=== PATIENT | female | born 1965 | race Caucasian/White ===

== ENCOUNTER 2019-12-01 15:51 | Emergency (ER) | payer OTHER, SELFPAY ==
[2019-12-01 16:02] VITALS: BP 175/96; PULSE 76; RESP 18; TEMP 36.8; O2SAT 96
--- NOTE | 2019-12-01 16:22 | DI.RAD_ITS ---
EXAM: XR FINGER RT LITTLE CLINICAL HISTORY: finger tip vs glass TECHNIQUE: COMPARISON: No exams were available for comparison FINDINGS: Three views were obtained. There is soft tissue defect tip of the little finger. There are degenera tive changes at the DIP joint. No gross fracture or foreign body seen. IMPRESSION:
--- NOTE | 2019-12-01 16:39 | ED.GENADUL_ITS ---
Discharge Plan Disposition Patient Disposition: HOME Condition: Stable Discharge Details Chief Complaint: Laceration Clinical Impression: Finger laceration Primary Care Provider: None,None ED Provider: Bon Momin Discharge Instructions Instructions: Finger Laceration (ED) Additional Instructions: Keep the area clean and dry. Change antibiotic dressing daily. Over the counter medications for symptomatic control. Sutures should be removed in 10 days. Please watch for new/worsening symptoms and return to the ER for any concerns Discharge Data Discharge Date/Time-TO BE ENTERED AT DEPARTURE: 12/01/19 17:15 Medical Decision Making Right fifth finger, flap laceration. No other injury. Denies numbness, tingling, weakness. She is neuro, vascular, tendon intact. Will update te tanus, obtain x-ray, and repair Tetanus updated. X-ray unremarkable. Laceration repaired without difficulty. Laceration cleaned and dressed. Patient tolerated well, no additional questions or concerns. Medical Records Medical records reviewed: Yes I reviewed the patient's medical records. HPI General Mode of arrival: ambulatory . Date/Time Provider Initiated Documentation: 12/01/19 16:09 . Limitations to Documentation: no limitations . Information obtained by: patient . HPI Narrative: 54-year-old female who denies any significant past medical history, she is left-hand dominant, sustained a right fifth digit laceration about 1 hour ago. She was at work picking up a bit of a glass and apparently cut herself on a piece of broken glass. Denies numbness, tingling, weakness. Denies any obvious foreign body. No other injury. Tetanus is up-to-date. Reports the pain is minimal in nature. Related Data Allergies Allergy/AdvReac Type Severity Reaction Status Date / Time No Known Allergies Allergy Unverified 09/08/15 14:51 General Stated Complaint: Laceration RHONDA: 4 Review of Systems Constitutional Constitutional: Denies fever(s) and Denies weakness Cardiovascular Cardiovascular: Denies chest pain and Denies dyspnea Respiratory Respiratory: Denies cough and Denies dyspnea Musculoskeletal Musculoskeletal: Denies numbness and Denies tingling Integumentary/Breasts Skin/Breast: Denies rash Neurologic Neurologic: Denies numbness, Denies tingling and Denies weakness REPLACED BY [facility] Social History Smoking/Tobacco Use Status: Current every day Drug use: Never Do you feel safe at home: Yes Do you feel safe in your relationship?: Yes Exam Const General: cooperative, healthy appearing, comfortable and no acute distress Orientation: alert and awake [facility] Head: normal to inspection, normocephalic and atraumatic Mouth: moist mucous membranes Eyes Conjunctivae: conjunctivae normal Neck Neck: normal visual inspection, trachea midline and supple Resp Effort & Inspection: normal respiratory effort and able to speak in complete sentences Cardio Rate: regular rate Rhythm: regular rhythm Skin General skin exam: no rashes or lesions noted Neuro General: patient alert, patient awake, moves all extremities and no focal motor deficits Sensory Exam: no sensory deficits noted Extrem Right upper extremity: hand Details: abnormal to inspection, tenderness and laceration 5th digit palmar aspect distal Details: flap (2 cm, does not involve the nail) Psych Appearance: grossly normal Mental Status: mental status grossly normal Course Vital Signs Vital signs: Vital Signs Temperature 36.8 C 12/01/19 16:02 Pulse 76 12/01/19 16:02 Respiratory Rate 18 12/01/19 16:02 Blood Pressure 175/96 H 12/01/19 16:02 Pulse Oximetry 96 12/01/19 16:02 Temperature 36.8 C 12/01/19 16:02 Temperature Source Temporal Artery Scan 12/01/19 16:02 Pulse 76 12/01/19 16:02 Respiratory Rate 18 12/01/19 16:02 Respiratory Effort 12/01/19 16:05 Blood Pressure 175/96 H 12/01/19 16:02 Blood Pressure Position Supine 12/01/19 16:02 Pulse Oximetry 96 12/01/19 16:02 Oxygen Delivery Method Room Air 12/01/19 16:02 Oxygen Flow Rate 0 12/01/19 16:02 Pain Level 0 12/01/19 16:02 Procedures Laceration Laceration 1: Site: hand Side (If applicable): right Size (cm): 2 Description: flap Depth: simple, single layer Local Anesthetic: Lidocaine 1% Amount of anesthesia used (mL): 5 Pre-repair: wound explored, irrigated extensively and deep structures intact Skin layer closed with: nylon Size (cm): 4-0 Number of sutures: 4 Technique: simple, interrupted
--- NOTE | 2019-12-01 16:49 | DI.VRAD_ITS ---
PROCEDURE INFORMATION: Exam: XR Right Finger(s) Exam date and time: 12/01/2019 4:22 PM Age: 54 years old Clinical indication: Other: Finger tip vs glass TECHNIQUE: Imaging protocol: XR Right fingers. Views: Minimum 2 views. COMPARISON: No relevant prior studies available. FINDINGS: Bones/joints: There is no evidence of a fracture. Soft tissues: There is a soft tissue laceration of the distal tip of the right is a measure 5th finger. There is no radiopaque foreign body identified. IMPRESSION: Soft tissue laceration as described above. Dictated and Authenticated by: Himanshu Queen MD. Ordering:WILY Crockett MD
== END 2019-12-01 17:15 | disposition home or self-care (01) ==
LOC: ER 17:08
PROVIDERS: Emergency Provider Physician Assistant
DX: S61.216A Laceration without foreign body of right little finger without damage to nail, initial encounter (principal); W25.XXXA Contact with sharp glass, initial encounter; Y99.0 Civilian activity done for income or pay
CPT/HCPCS: 12001; 90471; 99283; 73140; 99281

== ENCOUNTER 2019-12-11 15:37 | Emergency (ER) | payer SELFPAY ==
[2019-12-11 15:42] VITALS: BP 178/97; PULSE 79; RESP 17; TEMP 36.7; O2SAT 97
--- NOTE | 2019-12-11 16:00 | ED.GENADUL_ITS ---
Discharge Plan Disposition Patient Disposition: HOME Condition: Stable Discharge Details Chief Complaint: SutureRem Clinical Impression: Visit for suture removal Primary Care Provider: None,None ED Provider: Murray David Discharge Instructions Instructions: Stitches Removal (ED) Medical Decision Making 54 yo female here with suture removal, had them placed in right pinky after cutting on glass. Wound is well healed, the distal pinkty does appear mildly dusky sos supect this skin may fall off and advised her of this. Full rom, no erythema and intact sensation. Sutures removed without difficulty or complications. will d/c and return precautions given Differential Diagnosis Differential Diagnosis: suture removal HPI General Mode of arrival: ambulatory . Date/Time Provider Initiated Documentation: 12/11/19 15:39 . Limitations to Documentation: no limitations . Information obtained by: patient . History of Present Illness 54 year old F presents to the emergency department with the chief complaint of right pinky suture removal, described as moderate, and it has been constant. No relieving factors improve symptom(s), No exacerbating factors reported . Related Data Allergies Allergy/AdvReac Type Severity Reaction Status Date / Time No Known Allergies Allergy Unverified 12/11/19 15:46 General Stated Complaint: SutureRem RHONDA: 4 Review of Systems All systems reviewed & are unremarkable except as noted in HPI and below Constitutional Constitutional: Denies chills, Denies fever(s) and Denies weakness Cardiovascular Cardiovascular: Denies chest pain and Denies dyspnea Respiratory Respiratory: Denies cough and Denies dyspnea Gastrointestinal Gastrointestinal: Denies abdominal pain, Denies nausea and Denies vomiting Musculoskeletal Musculoskeletal: Denies joint swelling Neurologic Neurologic: Denies weakness Psychiatric Psychiatric: Denies depression [facility] Social History Smoking/Tobacco Use Status: Current every day Tobacco Type: cigarettes Alcohol Intake: current Alcohol Intake frequency: a few times a week Drug use: Never Substance use type: does not use Do you feel safe at home: Yes Do you feel safe in your relationship?: Yes Exam Const General: no acute distress Orientation: alert HENMT Head: normal to inspection Ears: external ears normal General nose exam: external nose normal Mouth: moist mucous membranes Eyes General: appearance normal, both eyes and all related structures Neck Neck: normal visual inspection Resp Effort & Inspection: normal respiratory effort and able to speak in complete sentences Cardio Rate: regular rate Skin General skin exam: no rashes or lesions noted Neuro General: patient alert and patient oriented x3 Extrem General: full ROM Psych Mental Status: mental status grossly normal Course Vital Signs Vital signs: Vital Signs Temperature 36.7 C 12/11/19 15:42 Pulse 79 12/11/19 15:42 Respiratory Rate 17 12/11/19 15:42 Blood Pressure 178/97 H 12/11/19 15:42 Pulse Oximetry 97 12/11/19 15:42 Temperature 36.7 C 12/11/19 15:42 Temperature Source Tympanic 12/11/19 15:42 Pulse 79 12/11/19 15:42 Respiratory Rate 17 12/11/19 15:42 Respiratory Effort 12/11/19 15:44 Blood Pressure 178/97 H 12/11/19 15:42 Blood Pressure Position Sitting 12/11/19 15:42 Pulse Oximetry 97 12/11/19 15:42 Oxygen Delivery Method Room Air 12/11/19 15:42 Oxygen Flow Rate 0 12/11/19 15:42
[2019-12-11 16:10] VITALS: BP 178/97; PULSE 79; RESP 17; TEMP 36.7; O2SAT 97
== END 2019-12-11 16:11 | disposition home or self-care (01) ==
PROVIDERS: Emergency Provider Emergency Medicine
DX: S61.216D Laceration without foreign body of right little finger without damage to nail, subsequent encounter (principal); W25.XXXD Contact with sharp glass, subsequent encounter; Z48.02 Encounter for removal of sutures

== ENCOUNTER 2021-01-31 08:44 | Emergency (ER) | payer OTHER, SELFPAY ==
[2021-01-31 08:56] VITALS: BP 149/61; PULSE 84; RESP 16; TEMP 36.4; O2SAT 99
--- NOTE | 2021-01-31 09:09 | W.ED.GENAD ---
Discharge Plan Disposition Patient Disposition: HOME Condition: Stable Discharge Details Clinical Impression: Abnormal vaginal bleeding Primary Care Provider: None,None ED Provider: Vinh Tomlinson Discharge Instructions Additional Instructions: Please follow-up with gynecology. Please also establish care and follow-up with a primary care physician. Return to the ER for any worsening or new concerning symptoms. Referrals: Alba Ann MD [ [facility] STAFF PHYSICIAN] - Discharge Data Discharge Date/Time-TO BE ENTERED AT DEPARTURE: 01/31/21 09:30 Medical Decision Making 56-year-old female smoker here today with vaginal bleeding over the past 2 months, initially heavy, now light. Patient is hemodynamically stable. Abdominal exam is benign. I called and spoke with Dr. Ann, on-call mechanical oxidizer, discussed ED presentation and my examination -she will assist in arranging timely outpatient follow-up. No additional diagnostics necessary at this time. Plan discussed with patient. Questions addressed and usual customary discharge instructions reviewed. HPI General Mode of arrival: ambulatory. Date/Time Provider Initiated Documentation: 01/31/21 08:45. Limitations to Documentation: no limitations. Information obtained by: patient. HPI Narrative: 56yo female smoker who presents with chief complaint of vaginal bleeding. Patient notes she has had intermittent vaginal bleeding for the past 2 months. Bleeding was initially heavy and has since decreased. She has now had spotting for the past few days. Yesterday she notes she used 2 pads. Patient states that her last menstrual flow was in the when she had a Norplant placed. Patient denies associated vaginal discharge. No abdominal pain. She does note some intermittent mid abdominal pressure. No associated fever. No dysuria. Related Data Allergies Allergy/AdvReac Type Severity Reaction Status Date / Time No Known Allergies Allergy Unverified 01/31/21 09:50 General Stated Complaint: MOSHGIACH RHONDA: 3 Review of Systems All systems reviewed & are unremarkable except as noted in HPI and below Constitutional Constitutional: Denies fever(s) Gastrointestinal Gastrointestinal: Reports as per HPI Genitourinary Genitourinary: Reports as per HPI [facility] Social History Smoking/Tobacco Use Status: Current every day Tobacco Type: cigarettes Smoking risk assessment performed?: Yes Alcohol Intake: current Alcohol Intake frequency: a few times a week Drug use: Never Substance use type: does not use Do you feel safe at home: Yes Do you feel safe in your relationship?: Yes Exam Const General: cooperative and no acute distress HENMT Mouth: moist mucous membranes Eyes Conjunctivae: normal conjunctivae Sclera: normal sclerae Neck Neck: trachea midline and supple Resp Auscultation: clear to auscultation bilaterally, no rales, no rhonchi and no wheezes Cardio Rate: regular rate and not tachycardic Rhythm: regular rhythm GI Palpation: soft, not firm, no guarding, no masses, not rigid and nontender Skin General skin exam: no rashes or lesions noted and no pallor Neuro General: patient alert, patient awake, patient oriented x3 and tone normal Extrem General: no edema Psych Appearance: grossly normal Mental Status: mental status grossly normal Course Vital Signs Vital signs: Vital Signs Temperature 36.4 C L 01/31/21 08:56 Pulse 84 01/31/21 08:56 Respiratory Rate 16 01/31/21 08:56 Blood Pressure 149/61 H 01/31/21 08:56 Pulse Oximetry 99 01/31/21 08:56 Temperature 36.4 C L 01/31/21 08:56 Temperature Source Skin 01/31/21 08:56 Pulse 84 01/31/21 08:56 Respiratory Rate 16 01/31/21 08:56 Blood Pressure 149/61 H 01/31/21 08:56 Blood Pressure Position Sitting 01/31/21 08:56 Pulse Oximetry 99 01/31/21 08:56 Pain Level 2 01/31/21 08:56
[2021-01-31 09:24] VITALS: BP 131/74; PULSE 76; RESP 16; TEMP 36.6; O2SAT 97
--- NOTE | 2021-01-31 09:27 | NUR.NOTE ---
Addendum entered by Geeta Wong 01/31/21 09:31: Referral given to Care Management to establish care, routine appt. Geeta Wong Original Note: Nursing Note: [facility] called with appt on Feb 03 @ [address] Church. Geeta Wong
[2021-01-31 09:30] VITALS: BP 131/74; PULSE 76; RESP 16; TEMP 36.6; O2SAT 97
--- NOTE | 2021-02-01 09:22 | CMPROGNOTE_ITS ---
- If Service Date Differs Date of service: 01/31/21 Time of Service: 09:22 Care Management Progress Note Geeta is seen in the ED for gynecological issues. At the request of ED provider, SHELIA coordinates a referral to MARILOU Eddy, of [facility], on-call provider, to assist Geeta in establishing care with a PCP. A referral has already been made to [facility] and an appointment is scheduled for 02/03/[address] Church.
== END 2021-01-31 09:30 | disposition home or self-care (01) ==
PROVIDERS: Emergency Provider Student in an Organized Health Care Education/Training Program
DX: N93.8 Other specified abnormal uterine and vaginal bleeding (principal)
CPT/HCPCS: 99281; 99282

== ENCOUNTER 2021-02-03 09:32 | Outpatient (REF) | payer OTHER, SELFPAY ==
--- NOTE | 2021-02-03 09:00 | ENDOMET_PTH ---
PATIENT: Geeta Sadler LOC: [facility] U#:[id number] AGE/SX: 56/F ROOM: RE02/03/[address]: Jayla Church DO : 1965 BED: DIS: 02/03/2021 SPEC #: [id number] RECD: 02/03/21 10:44 STATUS: SOUT REQ #: [id number] CRISTÓBAL: 02/03/21 09:[address]: Jayla Church DEPT: Surgical Specimen RECD BY: Mariama Dawn ENTERED: 02/03/21 10:45 SP TYPE: Endomet OTHR DR: None Tissues: 1 - ENDOMETRIUM BX/CURRETTE Procedures: GROSS AND MICRO LEVEL 4 Comments: [id number]
--- NOTE | 2021-02-03 09:00 | PAPFT_PTH ---
PATIENT: Geeta Sadler LOC: [facility] U#:[id number] AGE/SX: 56/F ROOM: RE02/03/[address]: Jayla Church DO : 1965 BED: DIS: 02/03/2021 SPEC #: [id number] RECD: 02/03/21 12:36 STATUS: BENY REQ #: [id number] CRISTÓBAL: 02/03/21 09:[address]: Jayla Church DEPT: [facility] Cytology RECD BY: Mariama Dawn ENTERED: 02/03/21 12:37 SP TYPE: PAPFT OTHR DR: None Tissues: 1 - CX/ENDOCX FOR PAP SMEARS Procedures: PAP THIN PREP/UVM Screening HPV DNA PROBE Comments: [id number]
== END 2021-02-03 09:33 | disposition home or self-care (01) ==
LOC: LBN 09:32
PROVIDERS: Visit Provider Obstetrics & Gynecology
DX: N95.0 Postmenopausal bleeding (principal); Z12.4 Encounter for screening for malignant neoplasm of cervix; N85.01 Benign endometrial hyperplasia; Z11.51 Encounter for screening for human papillomavirus (HPV)
CPT/HCPCS: 88142; 88305; 87624

== ENCOUNTER 2021-02-20 00:43 | Outpatient (CLI) | payer OTHER, SELFPAY ==
--- NOTE | 2021-02-20 09:15 | DI.MAMMO_ITS ---
Exam(s) MAMMO SCREENING EXAM: MAMMO SCREENING CLINICAL HISTORY: screening, Z12.39. TECHNIQUE: Bilateral full field digital CC and MLO mammographic images were obtained with 3D tomosyn thesis and utilizing computer aided detection (CAD). COMPARISON: None. This is a baseline mammogram on this 56-year-old patient. FINDINGS: There are no CAD designations. There are no spiculated masses nor malignant appearing microcalcification groups. There is no significant architectural distortion nor skin thickening-retraction. IMPRESSION: No radiographic evidence of malignancy. BI-RADS Category 1 - Negative Breast Density - Category B - Scattered areas of fibroglandular density Breast density Category C or D implies that the patient has dense breast tissue. Dense breast tissue can make it harder to find cancer on a mammogram. Dense breast tissue is also associated with an incr eased risk of breast cancer. This information about the result of the mammogram report was provided to the patient to raise their awareness. Use this report when you speak with the patient about their risks for breast cancer, which includes their family history. At that time, you may recommend additional screening tests (Ultrasoun d or MRI) as these tests may add significant information. A negative radiographic report should not delay biopsy if a dominant or clinically suspicious mass is present. Up to ten percent of cancers are not identified on mammography. A negative report may reinforce clinical impression. Adenosis and dense breasts may obscure an underlying neoplasm. False positive reports average 6 to 10%. Patient will receive a letter notifying them of these results.
== END 2021-02-20 01:03 ==
PROVIDERS: Visit Provider Obstetrics & Gynecology
DX: Z12.31 Encounter for screening mammogram for malignant neoplasm of breast (principal)
CPT/HCPCS: 77063; 77067

== ENCOUNTER 2021-03-21 01:51 | Outpatient (CLI) | payer OTHER, SELFPAY ==
[2021-03-21 08:47] LABS: Abs Immature Grans 0.04 10^3/uL (0.0-0.06); Absolute Basophil Count 0.05 10^3/uL (0.0-0.2); Absolute Eosinophil Count 0.08 10^3/uL (0.0-0.7); Absolute Lymphocyte Count 2.26 10^3/uL (1.2-3.4); Absolute Monocyte Count 0.48 10^3/uL (0.1-0.8); Absolute Neutrophil Count 6.41 10^3/uL (1.2-6.7); Basophils % 0.5; Eosinophils % 0.9; Immature Grans % 0.4; Lymphocytes % 24.2; MCH 17.3 pg (27.0-33.0); MCHC 25.7 % (32.0-36.0); MCV 67.5 fL (80-95); Monocytes % 5.2; Neutrophils % 68.8; Nucleated RBC 0 %; Platelet Count 250 10^3/uL (130-400); RBC 2.83 10^6/uL (3.93-5.22); RDW 20.4 % (11.7-14.6); RDW-SD 48.9 fL; WBC 9.32 10^3/uL (4.4-10.8)
[2021-03-21 09:10] LABS: HCT 19.1 % (36.0-46.0)
[2021-03-21 09:15] LABS: Anisocytosis 2+; Diff Comment Diff Reviewed; HGB 4.9 g/dL (11.2-15.7); Hypochromasia 2+; Microcytosis 3+
[2021-03-21 09:16] LABS: Polychromasia Present
[2021-03-21 10:29] LABS: Source Nasal/Nares
[2021-03-21 12:32] LABS: COVID-19 PCR Negative (Negative)
== END 2021-03-21 01:52 | disposition home or self-care (01) ==
LOC: LBO 01:51
PROVIDERS: Visit Provider Obstetrics & Gynecology
DX: N95.0 Postmenopausal bleeding (principal); R93.89 Abnormal findings on diagnostic imaging of other specified body structures; E66.9 Obesity, unspecified; Z20.822 Contact with and (suspected) exposure to COVID-19; Z01.818 Encounter for other preprocedural examination; Z01.812 Encounter for preprocedural laboratory examination
CPT/HCPCS: 36415; 86850; 86900; 86901; 87635; 85025

== ENCOUNTER 2021-03-21 17:10 | Inpatient (IN) | payer OTHER, SELFPAY ==
[2021-03-21] VITALS (18 sets, daily range): BP systolic 128–179; BP diastolic 54–124; PULSE 79–90; RESP 16–23; TEMP 36.6–37.3; O2SAT 97–99
--- NOTE | 2021-03-21 17:30 | DI.CT_ITS ---
Exam(s) CT HEAD - STROKE PROTOCOL EXAM: CT HEAD - STROKE PROTOCOL CLINICAL HISTORY: slurred speech, L weakness. TECHNIQUE: Imaging Protocol: Axial computed tomography images with coronal and sagittal reformatted images were created and reviewed COMPARISON: No exams were available for comparison FINDINGS: There are no skull fractures nor fluid in the visualized paranasal sinuses. There is no evidence of intracranial hemorrhage, mass effect, or shift of midline structures. There are no extra-axial fluid collections. The ventricles are not enlarged or shifted and there is no blo od within the ventricular system nor within the basal cisterns. There are no significant focal findings in the cerebellar hemispheres nor within the bhavik, midbrain, and thalami. There is an area of abnormal hypodensity in the right parietal lobe consistent with nonhemorrhagic in farct, probably not acute. IMPRESSION: Abnormal area of hypodensity in the right frontoparietal region consistent with nonhemorrhagic infarc t, probably not acute but correlation with prior history recommended. If clinically indicated follow -up MRI with diffusion imaging would be recommended. Study 1st read by Jannette [facility] RADIATION DOSE DELIVERED: 716.25mGy.cm Total DLP DATA REPOSITORY: All CT scans at this facility are submitted to the National Radiology Data Registry (NRDR) Dose Index Registry (DIR) with the [employer] ([employer]). RADIATION OPTIMIZATION: All CT scans at this facility use at least one of these dose optimization te chniques: automated exposure control; mA and/or kV adjustment per patient size (includes targeted exa ms where dose is matched to clinical indication); or iterative reconstruction.
--- NOTE | 2021-03-21 17:30 | DI.RAD_ITS ---
Exam(s) XR CHEST 2V PA LATERAL EXAM: XR CHEST 2V PA LATERAL CLINICAL HISTORY: L weakness, slurred speech. TECHNIQUE: 2D digital imaging was performed. COMPARISON: No exams were available for comparison FINDINGS: Heart size is upper normal. The mediastinum is not widened. Lungs are clear. No infiltrates nor pleural effusions. IMPRESSION: No acute pulmonary findings. DATA REPOSITORY: RADIATION DOSE DELIVERED:
--- NOTE | 2021-03-21 17:43 | ED.GENADUL_ITS ---
Discharge Plan Disposition Patient Disposition: [facility] IN[facility]IENT Condition: Stable Discharge Details Clinical Impression: Anemia, CVA (cerebral vascular accident) Primary Care Provider: None,None ED Provider: Mickey Perez Home Meds and New Rx's Prescriptions: No Action medroxyprogesterone [Provera] 5 mg tablet 5 mg PO BID Qty: 60 RF: 1 Medical Decision Making 56-year-old female diabetic with history of hypertension presents complaining of the onset yesterday evening of left upper extremity weakness and at times clumsiness. She stated her daughter noticed intermittent slurred speech. Patient did not fall or injure herself, she not had a headache, she is not had any recent febrile illness. She has been following with Dr. Church of the [facility] for postmenopausal bleeding which has been somewhat responsive to progestational agents. Ultrasound confirmed a significantly thickened endometrium and patient has been consented for surgical exploration with hystero scopy dilation and curettage. She had blood work at 8 AM this morning that revealed low hemoglobin of 4.9. She arrives to the ER hypertensive at 179/120, exam does reveal slight dysmetria of the left upper extremity on [id number] testing, as well as question very subtle weakness of the left upper extremity in extension. She is at risk for TIA versus stroke as well as anemia given her recent prolonged postmenopausal vaginal bleeding. Patient had IV access established, screening labs obtained she is referred for CT imaging. Patient does have evidence of encephalomalacia right frontal and parietal lobes. No acute intracranial hemorrhage. See formal report. Labs note recurrent anemia with a hematocrit of 18.7, hemoglobin is 4.8. Chemistries are reassuring with BUN 11, creatinine 1.1 and unremarkable electrolytes. Patient will require admission. I have consented her for 2 units packed red blood cells. I did perform rectal examination with guaiac positive stool present. No mass and no active bleeding. Given both the profound anemia, report of vaginal postmenopausal bleeding as well as possible GI bleeding, at this time antiplatelet therapy is risky and I will hold at this time. Family and patient states she wishes to be full code. Case discussed with Dr. Agee and will admit the patient. HPI General Mode of arrival: ambulatory . Date/Time Provider Initiated Documentation: 03/21/21 17:19 . Limitations to Documentation: no limitations . Information obtained by: patient . History of Present Illness 56 year old F presents to the emergency department with the chief complaint of Day 2 left arm weakness and slurred speech, described as mild and moderate, Quality is described as constant, and is localized to the head, left and upper extremity. Patient reports no radiation. Patient started experiencing this day(s) and it has been constant. No relieving factors improve symptom(s), No exacerbating factors reported . Patient notes other (Followed by Dr. Church for vaginal bleeding); denies headaches, loss of appetite, shortness of breath and syncope. Patient did receive the following treatments prior to arrival, other Related Data Home Medications Medication Instructions Recorded Confirmed medroxyprogesterone 5 mg tablet 5 mg PO BID #60 tab 03/01/21 03/01/21 Previous Rx's Medication Instructions Recorded medroxyprogesterone 5 mg tablet 5 mg PO BID #60 tab 03/01/21 Allergies Allergy/AdvReac Type Severity Reaction Status Date / Time No Known Allergies Allergy Unverified 01/31/21 09:50 General Stated Complaint: CVA/TIA RHONDA: 2 Review of Systems Narrative: No headache, no cough, no fever or chills. Denies fall or injury. No recent illness. Fully immunized against COVID-19. 8 systems reviewed and otherwise negative. FORMERLY [facility] Medical History Asthma Obesity Postmenopausal bleeding Thickened endometrium Social History Smoking/Tobacco Use Status: Current every day Tobacco Type: cigarettes Tobacco: How many years used: 30 Quit status: not considering quitting Counseling given: provider counseling Smoking risk assessment performed?: Yes Alcohol Intake: current Alcohol Intake frequency: a few times a week Drug use: Never Substance use type: does not use Do you feel safe at home: Yes Do you feel safe in your relationship?: Yes Female Reproductive History Menstrual Age of Menarche: 11 control method: none Menopause type: natural Date of menopause: 07/01/17 History History 2 Para 2 Hx # Term Pregnancies Multiple births Hx # Pregnancies Ectopic pregnancies AB induced Hx Number of Living Children 2 AB spontaneous Exam Narrative Exam Narrative: GEN: awake, alert, oriented 3. Pleasant, well groomed, interactive. HEAD: Normocephalic, atraumatic ENT: Mucous membranes dry, oropharynx partially edentulous otherwise unremarkable, External ear exam unremarkable EYES: PERRL, EOMI NECK: Full ROM, no LINDA, no menigismus CHEST/RESP: Nontender, clear to auscultation bilateral, no wheeze/rhonchi/rales CARDIOVASCULAR: RRR, no murmur, rub yolanda. 2+ Rad pulse bilateral ABDOMEN: Soft, nontender, no mass. +Bowel sounds EXT: Full ROM, no edema, no rash Neuro: Left upper extremity with slight dysmetria present on [id number]. Cranial nerves II through XII otherwise intact. Note question slight weakness left upper extremity with extension. Psych: Speech fluent, thoughts congruent, affect normal Course Vital Signs Vital signs: Vital Signs Temperature 36.7 C 03/21/21 17:17 Pulse 90 03/21/21 17:17 Respiratory Rate 20 03/21/21 17:17 Blood Pressure 179/124 H 03/21/21 17:17 Pulse Oximetry 98 03/21/21 17:17 Temperature 36.7 C 03/21/21 17:17 Temperature Source Skin 03/21/21 17:17 Pulse 90 03/21/21 17:17 Respiratory Rate 20 03/21/21 17:17 Respiratory Effort 03/21/21 17:23 Blood Pressure 179/124 H 03/21/21 17:17 Pulse Oximetry 98 03/21/21 17:17 Oxygen Delivery Method Room Air 03/21/21 17:17 Oxygen Flow Rate 0 03/21/21 17:17
[2021-03-21 18:04] LABS: Abs Immature Grans 0.04 10^3/uL (0.0-0.06); Absolute Basophil Count 0.06 10^3/uL (0.0-0.2); Absolute Eosinophil Count 0.07 10^3/uL (0.0-0.7); Absolute Lymphocyte Count 3.09 10^3/uL (1.2-3.4); Absolute Neutrophil Count 6.91 10^3/uL (1.2-6.7); Basophils % 0.6; Eosinophils % 0.6; Immature Grans % 0.4; Lymphocytes % 28.7; MCH 16.9 pg (27.0-33.0); MCHC 25.7 % (32.0-36.0); MCV 65.8 fL (80-95); Monocytes % 5.6; Neutrophils % 64.1; Nucleated RBC 0 %; RBC 2.84 10^6/uL (3.93-5.22); RDW 21.2 % (11.7-14.6); RDW-SD 47.8 fL; WBC 10.77 10^3/uL (4.4-10.8)
[2021-03-21 18:10] LABS: HCT 18.7 % (36.0-46.0); HGB 4.8 g/dL (11.2-15.7)
[2021-03-21 18:17] LABS: ALT 18 U/L (14-59); AST 11 U/L (15-37); Albumin 3.4 g/dL (3.4-5.0); Alkaline Phosphatase 56 U/L (46-116); BUN 11 mg/dL (7-18); Bilirubin, Total 0.4 mg/dL (0.2-1.0); CREATININE 1.1 mg/dL (0.55-1.02); Calcium 8.5 mg/dL (8.5-10.1); Chloride 105 mmol/L (98-107); Glucose 165 mg/dL (74-106); Magnesium 1.8 mg/dL (1.8-2.4); Potassium 3.6 mmol/L (3.5-5.1); Sodium 139 mmol/L (136-145); Total Protein 6.7 g/dL (6.4-8.2)
[2021-03-21 18:22] LABS: Troponin I < 0.05 ng/mL (<0.06)
--- NOTE | 2021-03-21 18:35 | DI.VRAD_ITS ---
PROCEDURE INFORMATION: Exam: CT Head Without Contrast Exam date and time: 03/21/2021 5:33 PM Age: 56 years old Clinical indication: Dizziness TECHNIQUE: Imaging protocol: Computed tomography of the head without contrast. Other technique: STROKE PROTOCOL was implemented. COMPARISON: No relevant prior studies available. FINDINGS: Brain: There is a region of encephalomalacia in the right frontal and parietal lobes, likely from remote infarct.There is no acute intracranial hemorrhage, mass effect or midline shift. There is no large acute territorial cerebral infarct. Cerebral ventricles: No ventriculomegaly. Paranasal sinuses: Visualized sinuses are unremarkable. No fluid levels. Mastoid air cells: Visualized mastoid air cells are well aerated. Bones/joints: Unremarkable. No acute fracture. Soft tissues: Unremarkable. IMPRESSION: No acute intracranial hemorrhage, mass effect or midline shift. ASSESSMENT: ASPECTS ([place] Stroke Program Early CT Score) is 10. Dictated and Authenticated by: Shari Carrera MD. Ordering:HAYLEE Arevalo MD
--- NOTE | 2021-03-21 18:39 | DI.VRAD_ITS ---
PROCEDURE INFORMATION: Exam: XR Chest Exam date and time: 03/21/2021 6:21 PM Age: 56 years old Clinical indication: Lt weakness, slurred speech TECHNIQUE: Imaging protocol: XR of the chest. Views: 2 views. COMPARISON: No relevant prior studies available. FINDINGS: Limitations: The study is slightly limited secondary to patient body habitus and under penetration. Lungs: No consolidation. Pleural spaces: No pleural effusion. No pneumothorax. Heart/Mediastinum: Unremarkable. No cardiomegaly. Bones/joints: Unremarkable. IMPRESSION: No acute findings. Dictated and Authenticated by: Shari Carrera MD. Ordering:HAYLEE Arevalo MD
[2021-03-21 19:03] LABS: Bilirubin Negative (Negative); Blood Large (Negative); Clarity Clear (Clear); Glucose Negative (Negative); Ketones Negative (Negative); Leukocyte Esterase Small (Negative); Nitrite Negative (Negative)
[2021-03-21 19:06] LABS: Diff Comment RBC Morph Reviewed; Platelet Count 286 10^3/uL (130-400)
[2021-03-21 19:07] LABS: Anisocytosis 2+; Hypochromasia 3+; Microcytosis 3+; Poikilocytes 1+; Polychromasia Present
[2021-03-21 19:11] LABS: Bacteria Rare HPF (Negative); C & S Indicated? Yes; Casts Negative LPF (Negative); Crystals Negative HPF (Negative); Epithelial Cells Few HPF (Negative); Mucus Negative (Negative); Other Cells Few Renal (Negative); RBC >50 HPF (0-2); WBC >50 HPF (0-5)
[2021-03-21 19:31] LABS: Source Nasal/Nares
--- NOTE | 2021-03-21 19:38 | W.PM.HP.N ---
Date of service: 03/21/21 Time of Service: 19:38 Assessment and Plan Assessment and plan (1) Acute blood loss anemia: Start date: 03/21/21 Status: Acute Assessment and plan: This is a 56-year-old lady with menorrhagia over the last month and worsening recently now presenting with profound anemia which is fairly well compensated except for recent left neurological deficits and positive right CVA which is subacute by CT. Her neurological problems appear to have stabilized and she is receiving blood transfusions now with third and fourth unit of packed red blood cells to be administered. Her hemoglobin was profound below 5 g/dL upon mission and has little improved with 2 L of peripheral blood cells. She did feel slightly better. Her BUN was normal and with heme positive stools it appears she may have lower GI blood loss rather than upper GI with no azotemia. She has not history of GI bleeding. This did not appear to be as active as her vaginal blood loss. Patient will continue transfusions as needed to stabilize with further evaluation of possible GI blood loss and evaluation of her subacute stroke. She is a full code. (2) CVA (cerebral vascular accident): Start date: 03/21/21 Status: Acute Assessment and plan: Patient never had previous history of CVA and new onset of symptoms the day prior to admission. Further evaluation with MRI/MRA and neurological consultation as deemed necessary. Patient is not a candidate for antiplatelet therapy at this time with her active bleeding and severe anemia. Family and patient far aware of risk-benefit of treatment options. Qualifiers: CVA mechanism: stenosis Laterality of affected vessel: right Precerebral and cerebral artery: anterior cerebral artery Qualified Code(s): I63.521 - Cerebral infarction due to unspecified occlusion or stenosis of right anterior cerebral artery (3) Abnormal vaginal bleeding: Status: Chronic Assessment and plan: Continue progesterone for now with [facility] follow-up once stabilized. History of Present Illness History of Present Illness Chief Complaint: Left-sided weakness incontinence with some speech hesitancy Narrative: This is a 56-year-old female patient who recently has been having increased vaginal bleeding and her perimenopausal state over the last year but worsening this summer. She has been placed on progesterone with some slowing of her menorrhagia but presented to the ED with left-sided weakness and clumsiness the day prior and then feeling weak with ambulation minimal swelling at home prompting ED evaluation. In the ED she was found to be hemodynamically stable slightly hypertensive which was being allowed with her question of stroke but in the last 24 hours. Patient had no medical follow-up by history and avoided doctors over the last years. She denies any GI symptoms or heartburn and she was found to have positive Hemoccult on rectal exam in the ED. Evaluation in the ED did expose profound anemia which appeared to be stable and chronic with patient has stated hemodynamically stable but requiring transfusion. She also was found to have probable subacute right CVA which explains her left sided weakness at home which improved in the ED. Discussion with the family as to the risk-benefit resulted and holding antiplatelet therapy for now with patient to be transfused and stabilized. Discussion was had to take place as a GI evaluation as the patient is further evaluated with imaging such as MRI MRA in the morning. Neurology was not engaged. The patient she was comfortable with no complaints and on her second unit of packed red blood cells being transfused. She carries a history of hypertension which is untreated and diabetes which is diet-controlled. The patient also is a tobacco smoker. She has no further known history of cardiovascular risk. Review of Systems Narrative: Patient did have some increased edema over this last summer and some fatigue with no focalizing symptoms until today. 13 point review of systems otherwise unrevealing or stable. Patient is a vague historian minimizing medical history. She is overweight. FORMERLY [facility], [facility] Medical History Asthma Obesity Postmenopausal bleeding Thickened endometrium Social History Smoking/Tobacco Use Status: Current every day Tobacco Type: cigarettes Tobacco: How many years used: 30 Quit status: not considering quitting Counseling given: provider counseling Smoking risk assessment performed?: Yes Alcohol Intake: current Alcohol Intake frequency: a few times a week Drug use: Never Substance use type: does not use Do you feel safe at home: Yes Do you feel safe in your relationship?: Yes Female Reproductive History Menstrual Age of Menarche: 11 control method: none Menopause type: natural Date of menopause: 07/01/17 History History 2 Para 2 Hx # Term Pregnancies Multiple births Hx # Pregnancies Ectopic pregnancies AB induced Hx Number of Living Children 2 AB spontaneous Meds Allergies and Home Medications Allergies Allergy/AdvReac Type Severity Reaction Status Date / Time No Known Allergies Allergy Unverified 01/31/21 09:50 Home Medications Medication Instructions Recorded Confirmed Type medroxyprogesterone 5 mg tablet 5 mg PO BID #60 tab 03/01/21 03/01/21 Rx Exam Narrative Exam Narrative: General: Patient appears older than stated age, alert and oriented x3 and in no acute distress. She is moderately obese. HEENT: Normocephalic, eyes with pupils equal and reactive to light symmetrically, extraocular movements active sclera anicteric. Oropharynx with moist mucosa. Neck: Supple without JVD. Back: Stooped posture without CVA tenderness. Lungs: Bronchovesicular breath sound diffusely, fair aeration and clear to auscultation. Breast: Exam deferred. Heart: Regular rate and rhythm with systolic murmur over left sternal border. No gallops or rubs. Abdomen: Obese contour, soft nontender to palpation with no palpable hepatosplenomegaly. Genitalia/rectal: Exam deferred. Rectal exam in the ED did result in heme positive stools. Extremities: Nonpitting edema both lower extremities with peripheral pulses decreased but intact. Good capillary refill. Joints have fair range of motion. No clubbing or cyanosis. Skin: Pale, warm and dry. Neuro: Cranial nerves II through XII grossly intact. 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 She has had slightly decreased left grasp in the ED. Speech was clear. Psych: Normal mood and affect. No abnormal thought processes. Remote and recent memory intact. Results Imaging Imaging Studies: EXAM: CT HEAD - STROKE PROTOCOL CLINICAL HISTORY: slurred speech, L weakness. TECHNIQUE: Imaging Protocol: Axial computed tomography images with coronal and sagittal reformatted images were created and reviewed COMPARISON: No exams were available for comparison FINDINGS: There are no skull fractures nor fluid in the visualized paranasal sinuses. There is no evidence of intracranial hemorrhage, mass effect, or shift of midline structures. There are no extra-axial fluid collections. The ventricles are not enlarged or shifted and there is no blood within the ventricular system nor within the basal cisterns. There are no significant focal findings in the cerebellar hemispheres nor within the bhavik, midbrain, and thalami. There is an area of abnormal hypodensity in the right parietal lobe consistent with nonhemorrhagic infarct, probably not acute. IMPRESSION: Abnormal area of hypodensity in the right frontoparietal region consistent with nonhemorrhagic infarct, probably not acute but correlation with prior history recommended. If clinically indicated follow-up MRI with diffusion imaging would be recommended. EXAM: XR CHEST 2V PA LATERAL CLINICAL HISTORY: L weakness, slurred speech. TECHNIQUE: 2D digital imaging was performed. COMPARISON: No exams were available for comparison FINDINGS: Heart size is upper normal. The mediastinum is not widened. Lungs are clear. No infiltrates nor pleural effusions. IMPRESSION: No acute pulmonary findings. Labs Result diagrams: 03/22/21 06:45 03/22/21 06:45 Labs: Laboratory Results - last 24 hr 03/21/21 03/21/21 03/21/21 17:00 17:00 17:00 WBC 10.77 RBC 2.84 L Hgb 4.8 L* Hct 18.7 L* MCV 65.8 L MCH 16.9 L MCHC 25.7 L RDW 21.2 H Plt Count 286 MPV Immature Gran % 0.4 Neutrophils % 64.1 Lymphocytes % 28.7 Monocytes % 5.6 Eosinophils % 0.6 Basophils % 0.6 Nucleated RBC % 0 Absolute Neutrophils 6.91 H Absolute Lymphocytes 3.09 Absolute Monocytes 0.60 Absolute Eosinophils 0.07 Absolute Basophils 0.06 RBC Morphology See Below Polychromasia Present Hypochromasia 3+ Poikilocytosis 1+ Anisocytosis 2+ Microcytosis 3+ Sodium 139 Potassium 3.6 Chloride 105 Carbon Dioxide 23.0 Anion Gap 11.0 BUN 11 Creatinine 1.1 H Estimated GFR/1.73 m2 51.20 Glucose 165 H Calcium 8.5 Magnesium 1.8 Total Bilirubin 0.4 AST 11 L ALT 18 Alkaline Phosphatase 56 Troponin I < 0.05 Total Protein 6.7 Albumin 3.4 Urine Color Urine Clarity Urine pH Ur Specific [place] Urine Protein Urine Ketones Urine Blood Urine Nitrite Urine Bilirubin Urine Urobilinogen Ur Leukocyte Esterase Urine RBC Urine WBC Ur Epithelial Cells Urine Crystals Urine Bacteria Urine Casts Urine Mucus Urine Other Ur Culture Indicated? Urine Glucose COVID-19 Source Patient ABO/Rh A Positive Antibody Screen NEGATIVE Crossmatch See Detail 03/21/21 03/21/21 18:38 19:23 WBC RBC Hgb Hct MCV MCH MCHC RDW Plt Count MPV Immature Gran % Neutrophils % Lymphocytes % Monocytes % Eosinophils % Basophils % Nucleated RBC % Absolute Neutrophils Absolute Lymphocytes Absolute Monocytes Absolute Eosinophils Absolute Basophils RBC Morphology Polychromasia Hypochromasia Poikilocytosis Anisocytosis Microcytosis Sodium Potassium Chloride Carbon Dioxide Anion Gap BUN Creatinine Estimated GFR/1.73 m2 Glucose Calcium Magnesium Total Bilirubin AST ALT Alkaline Phosphatase Troponin I Total Protein Albumin Urine Color Yellow Urine Clarity Clear Urine pH 6.0 Ur Specific [place] 1.020 Urine Protein 30 H Urine Ketones Negative Urine Blood Large H Urine Nitrite Negative Urine Bilirubin Negative Urine Urobilinogen 1.0 H Ur Leukocyte Esterase Small H Urine RBC >50 H Urine WBC >50 H Ur Epithelial Cells Few Urine Crystals Negative Urine Bacteria Rare Urine Casts Negative Urine Mucus Negative Urine Other Few Renal Ur Culture Indicated? Yes Urine Glucose Negative COVID-19 Source Nasal/Nares Patient ABO/Rh Antibody Screen Crossmatch Last Vital Signs Temp 36.7 C 03/21/21 17:17 Pulse 90 03/21/21 17:17 Resp 20 03/21/21 17:17 BP 179/124 H 03/21/21 17:17 Pulse Ox 98 03/21/21 17:17
[2021-03-21 20:34] LABS: Troponin I < 0.05 ng/mL (<0.06)
[2021-03-21 22:04] LABS: COVID-19 PCR Negative (Negative)
[2021-03-21] MEDS: medroxyPROGESTERone 5 MG TAB PO (23:41)
[2021-03-21] MEDS: Normal Saline 1,000 ML 50 ML IV (23:42)
[2021-03-22] VITALS (23 sets, daily range): BP systolic 104–164; BP diastolic 53–85; PULSE 67–99; RESP 16–20; TEMP 36.2–37.6; O2SAT 93–98
--- NOTE | 2021-03-22 | DI.MRI_ITS ---
Exam(s) MR BRAIN WO EXAM: MR BRAIN WO CLINICAL HISTORY: Acute vs chronic CVA on CT TECHNIQUE: Multiplanar multisequence MRI of the brain was performed. COMPARISON: CT CT HEAD - STROKE PROTOCOL from 03/21/[address] HEAD - STROKE PROTOCOL from 03/21/2021 FINDINGS: CEREBRAL PARENCHYMA: There is significant area of signal abnormality in the right frontoparietal region which exhibits res tricted diffusion signal abnormality on diffusion imaging consistent with acute infarct. In addition , there are other foci of restricted diffusion in the right occipital parietal region as well as in t he white matter adjacent to the frontal horn of the right lateral ventricle-frontal lobe region as we ll as higher up in the white matter of the right frontal lobe. All of the above foci also exhibit hy pointensity on ADC map. Ischemic infarct as well as embolic phenomena suspected.. T1 noncontrast im ages reveal some ribbon like hyperintensity in the gyri of the affected right parietal lobe, possibly representing an element of petechial hemorrhage. However, there is no blooming evident at this leve l on SWI. Suspect laminar necrosis. There is no evidence of significant signal abnormality in the middle cerebral arteries. There is no significant focal signal abnormality in the cerebellar hemispheres nor within the bhavik, m idbrain, and thalami. PITUITARY GLAND: No mass nor parasellar abnormality. No obvious abnormality in the cavernous sinuses. PARANASAL SINUSES: 1 centimeter retention cyst noted in the anterior aspect of the right maxillary si nus no fluid level no bone destruction. Other paranasal sinuses are clear as are the mastoid air laura ls. ORBITS: No obvious findings. IMPRESSION: The above described ischemic infarcts in the right-side of the brain are most probably related to the critical stenosis in the proximal right internal carotid artery in the neck, seen on today's neck MR A study. T1 hyperintensity in the affected area in the right parietal lobe noted. No prominent blooming at th is level evident on the gradient echo/susceptibility sequence. Possibly representing laminar necrosi s. Cannot exclude petechial hemorrhage. DATA REPOSITORY:
--- NOTE | 2021-03-22 | DI.MRI_ITS ---
Exam(s) MR ANGIO BRAIN WO EXAM: MR ANGIO BRAIN WO CLINICAL HISTORY: acute vs chronic CVA, transient LUE weakness. TECHNIQUE: Performed on a 1.5 jessica unit using [id number] sequence. No IV contrast COMPARISON: CT CT HEAD - STROKE PROTOCOL from 03/21/[address] HEAD - STROKE PROTOCOL from 03/21/2021 MR MR ANGIO NECK WO from 03/22/2021 MR MR BRAIN WO from 03/22/2021 MR MR BRAIN WO from 03/22/2021 FINDINGS: Please note that neck MRA reveals a critical stenosis in the proximal right internal carotid artery. CTA of the neck and head is recommended. Anterior circulation: Both internal carotid arteries are patent in the skull base-carotid canals as w ell as within the cavernous sinuses. The supraclinoid aspect of these vessels are patent. Flow is d emonstrated in both middle cerebral arteries out to the sylvian fissure branches. No evidence of int raluminal thrombus in the M1 and M2 segments. Flow is demonstrated in both A1 segments although ther e does appear to be a cyst focal stenosis in the distal right A1 segment. Flow signal is evident in both anterior cerebral arteries. There is no evidence of aneurysm at the level of the anterior commu nicating artery. Posterior circulation: Basilar artery is formed at the skull base by contribution by both vertebral a rteries. Basilar artery is patent. Distally it gives off patent bilateral posterior cerebral arteri es. Superior cerebellar arteries are also exhibit once also exhibit flow. There is no evidence of a neurysm of the tip of the basilar artery nor elsewhere in the [id number]. IMPRESSION: 1. No evidence of intraluminal thrombus. However, there is a focal stenosis in the anterior aspect o f the right A1 segment. 2. No aneurysms evident Please note that neck MRA reveals a critical stenosis in the proximal right internal carotid artery. There is also evidence of significant findings on the brain MRI. CT angiography view of the head an d neck is recommended. DATA REPOSITORY:
[2021-03-22 03:19] LABS: Abs Immature Grans 0.03 10^3/uL (0.0-0.06); Absolute Basophil Count 0.07 10^3/uL (0.0-0.2); Absolute Eosinophil Count 0.14 10^3/uL (0.0-0.7); Absolute Lymphocyte Count 2.88 10^3/uL (1.2-3.4); Absolute Neutrophil Count 5.86 10^3/uL (1.2-6.7); Basophils % 0.7; Eosinophils % 1.4; HCT 23.9 % (36.0-46.0); Immature Grans % 0.3; Lymphocytes % 29.8; MCH 20.2 pg (27.0-33.0); MCHC 28.5 % (32.0-36.0); MCV 71.1 fL (80-95); Monocytes % 7.2; Neutrophils % 60.6; Nucleated RBC 0 %; Platelet Count 240 10^3/uL (130-400); RBC 3.36 10^6/uL (3.93-5.22); RDW 24.1 % (11.7-14.6); RDW-SD 59.8 fL; WBC 9.68 10^3/uL (4.4-10.8)
[2021-03-22 03:26] LABS: HGB 6.8 g/dL (11.2-15.7)
[2021-03-22 03:28] LABS: Anisocytosis 2+; Hypochromasia 3+; Microcytosis 3+; Poikilocytes 1+
[2021-03-22 07:33] LABS: Abs Immature Grans 0.02 10^3/uL (0.0-0.06); Absolute Basophil Count 0.05 10^3/uL (0.0-0.2); Absolute Eosinophil Count 0.14 10^3/uL (0.0-0.7); Absolute Lymphocyte Count 2.29 10^3/uL (1.2-3.4); Absolute Neutrophil Count 5.37 10^3/uL (1.2-6.7); Basophils % 0.6; Eosinophils % 1.7; HCT 22.7 % (36.0-46.0); Immature Grans % 0.2; MCH 20.2 pg (27.0-33.0); MCHC 28.2 % (32.0-36.0); MCV 71.6 fL (80-95); Monocytes % 7.1; Neutrophils % 63.4; Nucleated RBC 0 %; RBC 3.17 10^6/uL (3.93-5.22); RDW 23.6 % (11.7-14.6); RDW-SD 58.7 fL; WBC 8.47 10^3/uL (4.4-10.8)
[2021-03-22 07:38] LABS: HGB 6.4 g/dL (11.2-15.7)
[2021-03-22 07:46] LABS: Diff Comment Diff Reviewed
[2021-03-22 07:47] LABS: ALT 15 U/L (14-59); AST 10 U/L (15-37); Albumin 3.1 g/dL (3.4-5.0); Alkaline Phosphatase 52 U/L (46-116); Anion Gap 8.4 mmol/L (3-11); Anisocytosis 2+; BUN 8 mg/dL (7-18); Bilirubin, Total 0.5 mg/dL (0.2-1.0); CO2 24.6 mmol/L (21.0-32.0); CREATININE 0.8 mg/dL (0.55-1.02); Calcium 8.1 mg/dL (8.5-10.1); Chloride 109 mmol/L (98-107); Glucose 124 mg/dL (74-106); Hypochromasia 2+; Microcytosis 2+; Platelet Count 220 10^3/uL (130-400); Potassium 3.9 mmol/L (3.5-5.1); Sodium 142 mmol/L (136-145); Total Protein 6.2 g/dL (6.4-8.2)
--- NOTE | 2021-03-22 08:40 | OT.INIE ---
Occupational Therapy Notes Inpatient Occupational Therapy Evaluation Date: 03/22/21 Referring Doctor:Jared El MD OT Orders: Non- Urgent Precautions: Fall, standard, Full PATIENT PROFILE/ADMITTING DIAGNOSIS: Pt is 56 year old female who has been in the ED multiple times in a short period of time. She was admitted for acute blood loss, anemia, CVA, thickened endometirum, post menopausal bleeding, abnormal vaginal bleeding. Past Medical History: Medical History Asthma Obesity Postmenopausal bleeding Thickened endometrium Social History/Home Situation: Pt states that she is a single female that lives alone locally in [facility]. She has a couple stairs to enter her home and notes that she drives (I). She states that she is (I) at her baseline level of function. She has a walk in shower and notes that she has a shower seat. She does not have any pets. She has two children and daughter and son. She states that she is close with her daughter but not as close with her son due to a conflict with his significant other. Equipment owned/DME: grab bars, shower seat SUBJECTIVE: Pt was sitting in bed when OT arrived, she is pleasant and states that her symptoms started on Saturday. She notes that she wants to return home. OBJECTIVE: General Observation: pleasant and agreeable to OT session, IV connected to (R) UE with blood being given. Mental Status: A&Ox3 Pain: no c/o pain ROM: RUE AROM WFL L UE AROM WFL STRENGTH: RUE 4+/5 throughout LUE 4+/5 throughout FUNCTIONAL MOBILITY/ADLS: OT assessed pts functional (I) in her ADL routines with assessment of her ROM which is WFL. She has ROM in order to perform her dressing and bathing. She is able to cross midline and reach without (A). Overall pt has ROM required for (I) and she is receptive to performance of her ADLs. Pt denies the need for adaptive equipment. She is unable to perform standing ADLs today d/t getting blood. BALANCE: Static sitting Normal Dynamic Sitting Normal SPECIAL TESTS: Daily Activity Limitations Standardized Measure [facility] AM -PAC ?6 clicks? Daily Activity Inpatient Short Form: Raw score: 23 Standardized score: 51.12 CMS score: 15.86% INFORMED CONSENT/EDUCATION: Pt instructed in purpose of OT Consult and plan of care. ASSESSMENT: Patient is a 56-year-old female referred to occupational therapy services with diagnosis of acute blood loss, anemia, CVA, thickened endometirum. Patient presents with clinical signs and symptoms consistent with dx, as demonstrated by the following impairment level findings/ functional limitations: blood loss, c/o decreased strength, decreased functional activity tolerance. She is getting blood today due to her blood loss but overall she is doing well. She denies need for any adaptive equipment at this time and states that she wants to go home. AMPAC score 23 Patient is assessed as a Low 42532 complexity based on the following: History: see above Examination: see functional limitations as noted above Presentation: evolving Decision Making: AMPAC score 23 GOALS Goals x1 week 1. Transfers (I) 2. Dressing sitting in chair (I) 3. Bathing- standing at sink (I) 4. Toileting on toilet (I) 5. Eating (I) PLAN OF CARE/TREATMENT PLAN: 1x/day, 5 days/ week x 1week Initiate Occupational Therapy Services for bathing, dressing, grooming, toileting, eating, transfer training. DISCHARGE RECOMMENDATIONS Home when medically cleared per MD. TREATMENT TIME/MINUTES/CODES 23253, 20 minutes (07:45) Candie Christiansen OTR/[facility]
[2021-03-22] MEDS: medroxyPROGESTERone 5 MG TAB PO ×2 (08:42→19:37)
--- NOTE | 2021-03-22 09:11 | INITIAL_ITS ---
- If Service Date Differs Date of service: 03/22/21 Time of Service: 09:11 Care Management Initial Assess REASON FOR HOSPITALIZATION:: Acute blood loss anemia, CVA, Menorrhagia PAST MEDICAL HISTORY/PAST SURGICAL HISTORY:: Medical History . Asthma. Obesity. Postmenopausal bleeding. Thickened endometrium PREVIOUS FUNCTIONAL STATUS/SOCIAL/FAMILY SUPPORTS:: Geeta lives alone in [facility] with her 2 cats. She works at [employer]. She is independent at baseline. Her daughter Yvrose Pulido also lives in [facility] and is supportive. CURRENT FUNCTIONAL STATUS:: Geeta was sitting up in bed eating her lunch when CM met with her. She was alert and oriented and easily engaged in conversation. She reports that she has more energy since starting blood infusions and is really looking forward to feeling better. CM continues to support ADVANCE DIRECTIVES:: None on File Has patient been provided with info about the portal/API?: Yes Did the patient sign up for the portal?: No CODE STATUS:: Full Code INSURANCE COVERAGE / FINANCIAL ISSUES:: [employer]. W [employer] [place] CURRENT HOME/COMMUNITY SERVICES/EQUIPMENT:: None at this time PRIMARY CARE PHYSICIAN:: None, No interest in establishing one. Geeta states she does not believe in them. POTENTIAL DISCHARGE NEEDS:: PCP attachment, patient declines at this time. PATIENT/FAMILY EDUCATION NEEDS:: Review discharge instruction and plan to follow up with community providers. TRANSPORTATION:: Discharge home when medically cleared via private vehicle with daughter. PLAN:: Awaiting updates from surgical team on next steps in treatment. Anticipate that patient will discharge to home via private vehicle with family when she is medically ready. CM will continue to follow discharge planning needs.
--- NOTE | 2021-03-22 10:54 | W.GYNCONSULT ---
Date of service: 03/22/21 Time of Service: 10:54 Assessment and Plan Assessment and plan (1) Acute blood loss anemia: Status: Acute Assessment and plan: In light of patient's profound anemia, she is currently being transfused. She has been placed empirically on progestational agents which is appropriate. She will have a full and thorough evaluation from a cardiovascular and neurologic standpoint. If she is a candidate for surgical procedure, for step would be for hysteroscopy with dilation and curettage. She certainly may need a hysterectomy in the future, the medical stability is a priority at this point. She is having minimal ongoing vaginal bleeding. Anemia has been corrected. Will await recommendation from hospital service and anesthesia in order to proceed with her upcoming surgical intervention. (2) Thickened endometrium: Status: Acute (3) Obesity: Status: Chronic (4) CVA (cerebral vascular accident): Status: Chronic Qualifiers: CVA mechanism: stenosis Precerebral and cerebral artery: anterior cerebral artery Laterality of affected vessel: right Qualified Code(s): I63.521 - Cerebral infarction due to unspecified occlusion or stenosis of right anterior cerebral artery History of Present Illness History of Present Illness Chief Complaint: Vaginal bleeding, profound anemia, slurred speech Narrative: Kindly asked to see in consultation this 56-year-old female known to me. She was in the process of operative testing for her upcoming hysteroscopy with dilation and curettage. She has been absent from care for approximately 30 years. Approximately 1 month ago she was seen in the emergency department for evaluation of heavy postmenopausal bleeding. In the process of that evaluation she was noted to have an ultrasound with a roughly 3 cm endometrial stripe. She had been placed empirically on progestational agents and endometrial sampling along with Pap smear obtained in the office. Endometrial sampling is benign, however in light of the significantly enlarged endometrial stripe and her ongoing bleeding, there is significant reason to believe that there is underlying pathology be that fibroid, versus polyp, versus hyperplasia or possible adenocarcinoma. She does have significant risk factors and that she is obese, hypertensive, and has been along her smoker. During her preoperative laboratory studies she was found to have a profoundly low hemoglobin and after her blood draw was experiencing symptoms of weakness, slurred speech and difficulty in mentation. She was brought to the emergency department at that point by her daughter and admitted for evaluation and treatment. From my perspective, she does need evaluation of the endometrium with the possibility of removal of fibroid versus polyp. More pressing issue at this point is her profound anemia which is being did by transfusion. She is on progestational agents to stabilize the endometrium which is appropriate. She will need surgical intervention in the future with at minimum of hysteroscopy with dilation and curettage. She will need to have a more extensive medical clearance prior to her procedure with coordination from her hospital service and anesthesia for appropriateness of care here, versus tertiary care center as warranted. When seen today, she does have a small amount of left-sided droop with some left hand weakness, but is an otherwise good spirits and understands what is happening with her currently. Consults Consult date: 03/22/21 Requesting physician: Brooke Mireles Review of Systems Constitutional Constitutional: Reports as per HPI, Reports lethargy and Reports weakness Cardiovascular Cardiovascular: Denies chest pain and Denies dyspnea Respiratory Respiratory: Denies chest congestion, Denies cough and Denies dyspnea Genitourinary Genitourinary: Reports as per HPI, Reports abnormal menses, Reports abnormal vaginal bleeding and Reports other (Currently minimal vaginal bleeding) Neurologic Neurologic: Reports weakness [facility] Medical History Asthma Obesity Postmenopausal bleeding Thickened endometrium Social History Smoking/Tobacco Use Status: Current every day Tobacco Type: cigarettes Tobacco: How many years used: 30 Quit status: not considering quitting Counseling given: provider counseling Smoking risk assessment performed?: Yes Alcohol Intake: current Alcohol Intake frequency: a few times a week Drug use: Never Substance use type: does not use Do you feel safe at home: Yes Do you feel safe in your relationship?: Yes Female Reproductive History Menstrual Age of Menarche: 11 control method: none Menopause type: natural Date of menopause: 07/01/17 History History 2 Para 2 Hx # Term Pregnancies Multiple births Hx # Pregnancies Ectopic pregnancies AB induced Hx Number of Living Children 2 AB spontaneous Results Last Vital Signs Temp 99.3 F 03/22/21 10:44 Pulse 73 03/22/21 10:44 Resp 16 03/22/21 10:44 BP 135/73 03/22/21 10:44 Pulse Ox 97 03/22/21 10:44 Labs Result diagrams: 03/22/21 06:45 03/22/21 06:45 Labs: Laboratory Results - last 24 hr 03/21/21 03/21/21 03/21/21 17:00 17:00 17:00 WBC 10.77 RBC 2.84 L Hgb 4.8 L* Hct 18.7 L* MCV 65.8 L MCH 16.9 L MCHC 25.7 L RDW 21.2 H Plt Count 286 MPV Immature Gran % 0.4 Neutrophils % 64.1 Lymphocytes % 28.7 Monocytes % 5.6 Eosinophils % 0.6 Basophils % 0.6 Nucleated RBC % 0 Absolute Neutrophils 6.91 H Absolute Lymphocytes 3.09 Absolute Monocytes 0.60 Absolute Eosinophils 0.07 Absolute Basophils 0.06 RBC Morphology See Below Polychromasia Present Hypochromasia 3+ Poikilocytosis 1+ Anisocytosis 2+ Microcytosis 3+ Sodium 139 Potassium 3.6 Chloride 105 Carbon Dioxide 23.0 Anion Gap 11.0 BUN 11 Creatinine 1.1 H Estimated GFR/1.73 m2 51.20 Glucose 165 H Calcium 8.5 Magnesium 1.8 Total Bilirubin 0.4 AST 11 L ALT 18 Alkaline Phosphatase 56 Troponin I < 0.05 Total Protein 6.7 Albumin 3.4 Urine Color Urine Clarity Urine pH Ur Specific [place] Urine Protein Urine Ketones Urine Blood Urine Nitrite Urine Bilirubin Urine Urobilinogen Ur Leukocyte Esterase Urine RBC Urine WBC Ur Epithelial Cells Urine Crystals Urine Bacteria Urine Casts Urine Mucus Urine Other Ur Culture Indicated? Urine Glucose COVID-19 Source SARS-CoV-2 (PCR) Patient ABO/Rh A Positive Antibody Screen NEGATIVE Crossmatch See Detail 03/21/21 03/21/21 03/21/21 18:38 19:23 20:05 WBC RBC Hgb Hct MCV MCH MCHC RDW Plt Count MPV Immature Gran % Neutrophils % Lymphocytes % Monocytes % Eosinophils % Basophils % Nucleated RBC % Absolute Neutrophils Absolute Lymphocytes Absolute Monocytes Absolute Eosinophils Absolute Basophils RBC Morphology Polychromasia Hypochromasia Poikilocytosis Anisocytosis Microcytosis Sodium Potassium Chloride Carbon Dioxide Anion Gap BUN Creatinine Estimated GFR/1.73 m2 Glucose Calcium Magnesium Total Bilirubin AST ALT Alkaline Phosphatase Troponin I < 0.05 Total Protein Albumin Urine Color Yellow Urine Clarity Clear Urine pH 6.0 Ur Specific [place] 1.020 Urine Protein 30 H Urine Ketones Negative Urine Blood Large H Urine Nitrite Negative Urine Bilirubin Negative Urine Urobilinogen 1.0 H Ur Leukocyte Esterase Small H Urine RBC >50 H Urine WBC >50 H Ur Epithelial Cells Few Urine Crystals Negative Urine Bacteria Rare Urine Casts Negative Urine Mucus Negative Urine Other Few Renal Ur Culture Indicated? Yes Urine Glucose Negative COVID-19 Source Nasal/Nares SARS-CoV-2 (PCR) Negative Patient ABO/Rh Antibody Screen Crossmatch 03/22/21 03/22/21 03/22/21 03:05 06:45 06:45 WBC 9.68 8.47 RBC 3.36 L 3.17 L Hgb 6.8 L* 6.4 L* Hct 23.9 L D 22.7 L MCV 71.1 L D 71.6 L MCH 20.2 L 20.2 L MCHC 28.5 L 28.2 L RDW 24.1 H 23.6 H Plt Count 240 220 MPV Immature Gran % 0.3 0.2 Neutrophils % 60.6 63.4 Lymphocytes % 29.8 27.0 Monocytes % 7.2 7.1 Eosinophils % 1.4 1.7 Basophils % 0.7 0.6 Nucleated RBC % 0 0 Absolute Neutrophils 5.86 5.37 Absolute Lymphocytes 2.88 2.29 Absolute Monocytes 0.70 0.60 Absolute Eosinophils 0.14 0.14 Absolute Basophils 0.07 0.05 RBC Morphology See Below See Below Polychromasia Hypochromasia 3+ 2+ Poikilocytosis 1+ Anisocytosis 2+ 2+ Microcytosis 3+ 2+ Sodium 142 Potassium 3.9 Chloride 109 H Carbon Dioxide 24.6 Anion Gap 8.4 BUN 8 Creatinine 0.8 Estimated GFR/1.73 m2 >= 60.00 Glucose 124 H Calcium 8.1 L Magnesium Total Bilirubin 0.5 AST 10 L ALT 15 Alkaline Phosphatase 52 Troponin I Total Protein 6.2 L Albumin 3.1 L Urine Color Urine Clarity Urine pH Ur Specific [place] Urine Protein Urine Ketones Urine Blood Urine Nitrite Urine Bilirubin Urine Urobilinogen Ur Leukocyte Esterase Urine RBC Urine WBC Ur Epithelial Cells Urine Crystals Urine Bacteria Urine Casts Urine Mucus Urine Other Ur Culture Indicated? Urine Glucose COVID-19 Source SARS-CoV-2 (PCR) Patient ABO/Rh Antibody Screen Crossmatch
[2021-03-22 11:04] LABS: Calculated LDL 102 mg/dL (<100); Cholesterol 142 mg/dL (<200); HDL Cholesterol 22 mg/dL (40-60); Triglyceride 93 mg/dL (<150)
[2021-03-22] MEDS: Acetaminophen 325 MG TAB 650 MG PO ×2 (12:14→21:59)
--- NOTE | 2021-03-22 14:20 | DI.MRI_ITS ---
Exam(s) MR ANGIO NECK WO EXAM: MRA OF THE NECK CLINICAL HISTORY: acute vs chronic CVA, transient LUE weakness. TECHNIQUE: NONINFUSED MRA WAS PERFORMED WITH [id number] SEQUENCE. CONTRAST MATERIAL: IV Contrast: None COMPARISON: None. FINDINGS: Both common carotid arteries are less than optimally visualized proximally. Distally appear patent. Both carotid bifurcations appear patent. However, there is a critical focal stenosis just beyond th e origin of the right internal carotid artery flow is demonstrated in this vessel above this level in the neck. There is mild stenosis at the origin of the opposite-left internal carotid artery. Posterior circulation : Both vertebral arteries are patent and exhibit equal luminal diameters in the foramen transverse area and both vertebral arteries contribute to the formation of the basilar arter y at the skull base. IMPRESSION: Abnormal study. There is a high-grade critical stenosis just beyond the origin of the right internal carotid artery. CT angiography of the head and neck recommended. DATA REPOSITORY:
--- NOTE | 2021-03-22 15:48 | NCONE_ITS ---
Date of service: 03/22/21 Time of Service: 15:48 Assessment and Plan Assessment and plan (1) CVA (cerebral vascular accident): Status: Acute Qualifiers: CVA mechanism: stenosis Laterality of affected vessel: right Precerebral and cerebral artery: anterior cerebral artery Qualified Code(s): I63.521 - Cerebral infarction due to unspecified occlusion or stenosis of right anterior cerebral artery (2) Anemia: Status: Chronic (3) Acute blood loss anemia: Status: Acute (4) Carotid stenosis, right: Status: Acute Assessment and plan: Ms. Sadler is a 56 year-old, right-handed woman admitted with: #1. Left arm weakness/clumsiness/numbness and dysarthria secondary to acute ischemic stroke. MRI brain with acute right hemisphere ischemia in a borderzone distribution secondary to right carotid stenosis vs occlusion in setting of profound anemia with ongoing postmenopausal uterine bleeding. -CTA head/neck to better evaluate right carotid stenosis vs occlusion. -Needs antiplatelet but unable to tolerate currently with profound anemia and ongoing bleeding -consider high-dose statin to help with plaque stabilization -Would continue high dose IVF to help with hypovolemia/support perfusion/volume supplementation -[place] BP >140; avoid hypotension!!! -please check A1c -OT -smoking cessation -Will need vascular surgery consult for urgent evaluation for carotid stenosis -Will likely need transfer give patient complexity/severity of illness History of Present Illness History of Present Illness Chief Complaint: stroke Narrative: Handedness: LEFT. HPI: Ms. Sadler is a 56 year-old woman with hypertension, smoking, and very little medical care (has no PCP). She began to experience vaginal bleeding at varying intensities in November for which she presented for care in January. Along with this she has has been experiencing cramps. She tells me she has been taking ASA 325mg BID most days for her cramps since onset in November. When we discussed that this can worsen bleeding, she said she was actually taking Midol instead.... Regardless, beginning 03/20/21 evening, she began to experience intermittent left arm numbness, weakness, and clumsiness along with slurred speech. This intensified yesterday such that she presented to the [facility] ER. In the ER BP was 179/120. Found to have Hgb 4.9! She has since been transfused 2U PRBCs and Hgb 6.8/6.4. S/p 2U PRBCs this afternoon with updated Hgb pending. She has been recommended hysteroscopy with dilation and curettage by ObGyn. Stool heme was reportedly positive in the ER, but has been negative on the floor. Overnight, her dysarthria has resolved. She still has some numbness and clumsiness of the left arm, but this has improved. She has undergone work-up as below. She has no known prior history of stroke. She smokes 1ppd. Work-up: -CTH: old R parietal stroke. I reviewed these images personally and this is my personal interpretation. -MRI brain: multiple acute infarcts throughout the right frontal and parietal lobes in a borderzone distribution. Old right parietal infarct. Rads notes ? laminal necrosis vs petechial hemorrhage in the high right parietal lobe. I reviewed these images personally and this is my personal interpretation. -MRA head/neck: critical stenosis vs occlusion of the right ICA. Diffuse atherosclerosis throughout MRA head. I reviewed these images personally and this is my personal interpretation. 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 Do you feel safe at home: Yes Do you feel safe in your relationship?: Yes Female Reproductive History Menstrual Age of Menarche: 11 control method: none Menopause type: natural Date of menopause: 07/01/17 History History 2 Para 2 Hx # Term Pregnancies Multiple births Hx # Pregnancies Ectopic pregnancies AB induced Hx Number of Living Children 2 AB spontaneous Visit Medication and Allergies Active Medications Generic Name Dose Route Start Last Admin Trade Name Freq PRN Reason Stop Dose Admin Acetaminophen 650 mg 03/21/21 19:39 03/22/21 12:14 Acetaminophen 325 Mg Tab PO 650 mg Q4H PRN PRN Administration Al Hydrox/Mg Hydrox/Simethicone 30 ml 03/21/21 19:39 Mylanta Suspension 30 Ml Cup PO Q2H PRN PRN Dimethicone/Zinc Oxide 0 gm 03/21/21 19:39 Avelina Protect Cream 142 Gm Tube TP PRN PRN Docusate Sodium 100 mg 03/21/21 19:39 Docusate Sodium 100 Mg Cap PO TID PRN PRN Sodium Chloride 500 mls @ 0 mls/hr 03/21/21 19:39 Saline 500ml Bag IV PRN PRN As Directed Sodium Chloride 1,000 mls @ 50 mls/hr 03/21/21 19:45 03/22/21 14:55 Saline 1000ml Bag IV 50 mls/hr INFUSION BECKY Infusion IV Miscellaneous Supplies 1 each 03/21/21 19:45 Iv Access IV DIRECTED BECKY Magnesium Hydroxide 30 ml 03/21/21 19:39 Milk Of Magnesia 30 Ml Cup PO DAILY PRN PRN Medroxyprogesterone Acetate 5 mg 03/21/21 20:00 03/22/21 08:42 Medroxyprogesterone 5 Mg Tab PO 5 mg BID BECKY Administration Nicotine 0 cartridge 03/22/21 11:02 03/22/21 12:15 Nicotine 10 Mg/Cartridge 30 Cart/Pkg IH 4 mg Q2H PRN PRN Administration Polyethylene Glycol 17 gm 03/21/21 19:39 Polyethylene Glycol 3350 17 Gm Packet PO DAILY PRN PRN Constipation Sodium Chloride 0 ml 03/21/21 19:39 Normal Saline Flush 10 Ml Syr IVP PRN PRN Allergies No Known Allergies Allergy (Unverified 01/31/21 09:50) Exam Narrative Exam Narrative: Physical Exam: Gen: Patient of apparent stated age, NAD, BMI 42 Head and face: no facial or cranial abnormalities Neck: Supple, no meningismus, no occipital tenderness CV: + S1, S2, RRR, no murmur Resp: CTA B/L Abd: soft, nontender, nondistended Ext: No edema. No clubbing or cyanosis. No bony deformity. Neuro Exam: Language: fluency, naming, repetition, and comprehension intact; Mental Status: AAOx3, current events intact, fund of knowledge intact; Speech: no dysarthria Cranial nerves: Funduscopy: not performed CN II: visual tolbert intact CN III, IV, : extraocular movements intact, no nystagmus, pupils symmetric and reactive to light CN V: face sensation intact to LT and PP CN VII: no facial asymmetry noted CN VIII: hearing intact bilaterally CN IX, X: palate rises symmetrically CN XI: trapezius/SCM 5/5 bilaterally CN XII: protrudes tongue symmetrically Sensory: reduced LT and PP in left arm; intact in leg Motor: bulk and tone intact. Subtle reduced fine motor movements on left. L parietal drift. Strength 5/5 throughout including the deltoids, biceps, t riceps, wrist extensors, hip flexors, knee flexors, knee extensors, ankle flexors, and ankle extensors. Reflexes: hyporeflexic throughout; toes neutral bilaterally; Coordination: FTN and HTS intact bilaterally Gait: not tested Results Last Vital Signs Temp 36.8 C 03/22/21 15:32 Pulse 74 03/22/21 15:32 Resp 17 03/22/21 15:32 BP 140/74 03/22/21 15:32 Pulse Ox 98 03/22/21 15:32 Labs Result diagrams: 03/22/21 17:10 03/22/21 06:45 Labs: Laboratory Results - last 24 hr 03/21/21 03/21/21 03/21/21 17:00 17:00 17:00 WBC 10.77 RBC 2.84 L Hgb 4.8 L* Hct 18.7 L* MCV 65.8 L MCH 16.9 L MCHC 25.7 L RDW 21.2 H Plt Count 286 MPV Immature Gran % 0.4 Neutrophils % 64.1 Lymphocytes % 28.7 Monocytes % 5.6 Eosinophils % 0.6 Basophils % 0.6 Nucleated RBC % 0 Absolute Neutrophils 6.91 H Absolute Lymphocytes 3.09 Absolute Monocytes 0.60 Absolute Eosinophils 0.07 Absolute Basophils 0.06 RBC Morphology See Below Polychromasia Present Hypochromasia 3+ Poikilocytosis 1+ Anisocytosis 2+ Microcytosis 3+ Sodium 139 Potassium 3.6 Chloride 105 Carbon Dioxide 23.0 Anion Gap 11.0 BUN 11 Creatinine 1.1 H Estimated GFR/1.73 m2 51.20 Glucose 165 H Calcium 8.5 Magnesium 1.8 Total Bilirubin 0.4 AST 11 L ALT 18 Alkaline Phosphatase 56 Troponin I < 0.05 Total Protein 6.7 Albumin 3.4 Triglycerides Total Cholesterol LDL Cholesterol, Calc HDL Cholesterol Urine Color Urine Clarity Urine pH Ur Specific [place] Urine Protein Urine Ketones Urine Blood Urine Nitrite Urine Bilirubin Urine Urobilinogen Ur Leukocyte Esterase Urine RBC Urine WBC Ur Epithelial Cells Urine Crystals Urine Bacteria Urine Casts Urine Mucus Urine Other Ur Culture Indicated? Urine Glucose COVID-19 Source SARS-CoV-2 (PCR) Patient ABO/Rh A Positive Antibody Screen NEGATIVE Crossmatch See Detail 03/21/21 03/21/21 03/21/21 18:38 19:23 20:05 WBC RBC Hgb Hct MCV MCH MCHC RDW Plt Count MPV Immature Gran % Neutrophils % Lymphocytes % Monocytes % Eosinophils % Basophils % Nucleated RBC % Absolute Neutrophils Absolute Lymphocytes Absolute Monocytes Absolute Eosinophils Absolute Basophils RBC Morphology Polychromasia Hypochromasia Poikilocytosis Anisocytosis Microcytosis Sodium Potassium Chloride Carbon Dioxide Anion Gap BUN Creatinine Estimated GFR/1.73 m2 Glucose Calcium Magnesium Total Bilirubin AST ALT Alkaline Phosphatase Troponin I < 0.05 Total Protein Albumin Triglycerides Total Cholesterol LDL Cholesterol, Calc HDL Cholesterol Urine Color Yellow Urine Clarity Clear Urine pH 6.0 Ur Specific [place] 1.020 Urine Protein 30 H Urine Ketones Negative Urine Blood Large H Urine Nitrite Negative Urine Bilirubin Negative Urine Urobilinogen 1.0 H Ur Leukocyte Esterase Small H Urine RBC >50 H Urine WBC >50 H Ur Epithelial Cells Few Urine Crystals Negative Urine Bacteria Rare Urine Casts Negative Urine Mucus Negative Urine Other Few Renal Ur Culture Indicated? Yes Urine Glucose Negative COVID-19 Source Nasal/Nares SARS-CoV-2 (PCR) Negative Patient ABO/Rh Antibody Screen Crossmatch 03/22/21 03/22/21 03/22/21 03:05 06:45 06:45 WBC 9.68 8.47 RBC 3.36 L 3.17 L Hgb 6.8 L* 6.4 L* Hct 23.9 L D 22.7 L MCV 71.1 L D 71.6 L MCH 20.2 L 20.2 L MCHC 28.5 L 28.2 L RDW 24.1 H 23.6 H Plt Count 240 220 MPV Immature Gran % 0.3 0.2 Neutrophils % 60.6 63.4 Lymphocytes % 29.8 27.0 Monocytes % 7.2 7.1 Eosinophils % 1.4 1.7 Basophils % 0.7 0.6 Nucleated RBC % 0 0 Absolute Neutrophils 5.86 5.37 Absolute Lymphocytes 2.88 2.29 Absolute Monocytes 0.70 0.60 Absolute Eosinophils 0.14 0.14 Absolute Basophils 0.07 0.05 RBC Morphology See Below See Below Polychromasia Hypochromasia 3+ 2+ Poikilocytosis 1+ Anisocytosis 2+ 2+ Microcytosis 3+ 2+ Sodium 142 Potassium 3.9 Chloride 109 H Carbon Dioxide 24.6 Anion Gap 8.4 BUN 8 Creatinine 0.8 Estimated GFR/1.73 m2 >= 60.00 Glucose 124 H Calcium 8.1 L Magnesium Total Bilirubin 0.5 AST 10 L ALT 15 Alkaline Phosphatase 52 Troponin I Total Protein 6.2 L Albumin 3.1 L Triglycerides Total Cholesterol LDL Cholesterol, Calc HDL Cholesterol Urine Color Urine Clarity Urine pH Ur Specific [place] Urine Protein Urine Ketones Urine Blood Urine Nitrite Urine Bilirubin Urine Urobilinogen Ur Leukocyte Esterase Urine RBC Urine WBC Ur Epithelial Cells Urine Crystals Urine Bacteria Urine Casts Urine Mucus Urine Other Ur Culture Indicated? Urine Glucose COVID-19 Source SARS-CoV-2 (PCR) Patient ABO/Rh Antibody Screen Crossmatch 03/22/21 06:45 WBC RBC Hgb Hct MCV MCH MCHC RDW Plt Count MPV Immature Gran % Neutrophils % Lymphocytes % Monocytes % Eosinophils % Basophils % Nucleated RBC % Absolute Neutrophils Absolute Lymphocytes Absolute Monocytes Absolute Eosinophils Absolute Basophils RBC Morphology Polychromasia Hypochromasia Poikilocytosis Anisocytosis Microcytosis Sodium Potassium Chloride Carbon Dioxide Anion Gap BUN Creatinine Estimated GFR/1.73 m2 Glucose Calcium Magnesium Total Bilirubin AST ALT Alkaline Phosphatase Troponin I Total Protein Albumin Triglycerides 93 Total Cholesterol 142 LDL Cholesterol, Calc 102 H HDL Cholesterol 22 L Urine Color Urine Clarity Urine pH Ur Specific [place] Urine Protein Urine Ketones Urine Blood Urine Nitrite Urine Bilirubin Urine Urobilinogen Ur Leukocyte Esterase Urine RBC Urine WBC Ur Epithelial Cells Urine Crystals Urine Bacteria Urine Casts Urine Mucus Urine Other Ur Culture Indicated? Urine Glucose COVID-19 Source SARS-CoV-2 (PCR) Patient ABO/Rh Antibody Screen Crossmatch
[2021-03-22 17:24] LABS: HCT 29.6 % (36.0-46.0); HGB 8.6 g/dL (11.2-15.7)
--- NOTE | 2021-03-22 18:12 | DI.CT_ITS ---
Exam(s) CT BRAIN NECK CTA EXAM: CT BRAIN NECK CTA CLINICAL HISTORY: multiple CVAs, internal carotid A stenosis. TECHNIQUE: Imaging Protocol: Axial CT angiography was performed with multi-slice acquisition and mu lti-planar and/or 3D reconstructions. CONTRAST MATERIAL: Intravenous: Omnipaque [id number] Contrast volume:structured data in ml COMPARISON: No exams were available for comparison FINDINGS: CTA Neck W: Aortic arch anatomy: The aortic arch anatomy is conventional. Anterior circulation: Both common carotid arteries ascend with normal luminal diameters. No significant plaque or stenosis evident in either carotid bifurcation nor in the proximal internal carotid arteries either side. Alejandro th internal carotid arteries are patent in the upper neck and skull base. Posterior circulation: Both vertebral arteries originate in conventional fashion off of the subclavian arteries. There is p oor opacification of the origin of the left vertebral artery, possibly artifact. Both vertebral mckayla sunshine above this level ascend with normal and equal luminal diameters in the foramen transverse area a nd both contribute to the formation of the basilar artery at the skull base. CTA Brain W: There is less than optimal opacification of the intracranial arteries. Anterior circulation: Both internal carotid arteries are patent in the skull base and cavernous sinuses. Supraclinoid aspe cts are patent. There does not appear to be occlusion of the middle cerebral arteries. A1 segments are patent as are the anterior cerebral arteries. No evidence of aneurysm at the level of the anterior communicating artery. Posterior circulation: Basilar artery ascends with normal luminal diameter of the midline. Distally gives off superior cere bellar arteries and above this level terminates as patent posterior cerebral arteries. CT BRAIN: Area of abnormal hypodensity in the right frontal parietal region consistent with infarct. Appearanc e is that of acute on chronic. No obvious hemorrhage on CT. No ring enhancing lesions in the brain. No abnormal meningeal enhancement. IMPRESSION: 1. No significant stenosis within the carotid arteries in the neck and both vertebral arteries are pa tent. 2. No large vessel stenosis or occlusion in the intracranial compartment. 3. Right frontal parietal hypotension to a [place] consistent with infarct. Appearance is both chroni c and acute. No obvious hemorrhage. RADIATION DOSE DELIVERED: 2,159.06mGy.cm Total DLP DATA REPOSITORY: All CT scans at this facility are submitted to the National Radiology Data Registry (NRDR) Dose Index Registry (DIR) with the [employer] (A[employer]). RADIATION OPTIMIZATION: All CT scans at this facility use at least one of these dose optimization te chniques: automated exposure control; mA and/or kV adjustment per patient size (includes targeted exa ms where dose is matched to clinical indication); or iterative reconstruction.
--- NOTE | 2021-03-22 19:07 | W.PM.PROGNOT ---
Date of Service Date of service: 03/22/21 Time of Service: 16:45 Assessment and Plan Assessment and plan (1) Cerebral ischemic stroke due to global hypoperfusion with watershed infarct: Status: Acute Assessment and plan: In setting of suspected critical right carotid stenosis as well as hypoperfusion due to anemia. Discussed with Dr Hopkins who recommended transfer to a tertiary care facility so that the bleeding can be treated so that the stroke can be addressed. Attempted xfer to [facility], but not beds available. Discussed with neurology and with PUMP MACHINE OPERATOR at [facility]. PUMP MACHINE OPERATOR feels that the patient should be treated medically for her bleeding, as long as neurology was ok with that. NEurology felt that the patient would not be a surgical candidate for her carotid at this time and that they really needed a CTA of the head/neck to truly evaluate for carotid stenosis. They did not feel that the patient would be appropriate for transfer to their facility tonight. Recommended further imaging abdomen/pelvis (will discuss with our PUMP MACHINE OPERATOR which modality would be best) and maintaining adequate perfusion/BP. Continue IVF and trend H/H. Await CTA head/neck. Start high dose statin. (2) Carotid stenosis, right: Status: Acute Assessment and plan: As above (3) Acute blood loss anemia: Status: Acute Assessment and plan: S/p 4 units pRBCs. H/H is 8.6/29.6 post transfusion, up from 4.6 on presentation. The patient continues to bleed. Continue provera and recheck H/H in am. As above - PUMP MACHINE OPERATOR recommends medical therapy rather than surgical for her dysfunctional uterine bleeding. (4) Dysfunctional uterine bleeding: Status: Acute Assessment and plan: As above. Prior endometrial bx negative. [facility] did recommend possibly repeating it, recognizing that it might cause a vasovagal reaction and perhaps now is not the best time. malignancy is suspected. Will discuss further imaging with PUMP MACHINE OPERATOR. (5) Tobacco abuse: Status: Acute Assessment and plan: Provide nicotine replacement (6) DVT prophylaxis: Status: Acute Assessment and plan: SCDs Chemical DVT ppx is contraindicated in setting of acute bleeding. (7) Discharge planning issues: Status: Acute Assessment and plan: Full code Continues to require hospitalization. May require reattempt to transfer to a tertiary care facility. Subjective Subjective Interval history since last seen: The patient states that her left hand is still clumsy, but her speech is back to normal. She thinks that she was last fine on Saturday. Denies dizziness, headache, chest pain, shortness of breath, nausea. Agrees to transfer. Exam Narrative Exam Narrative: General: Pleasant milddle-aged female who looks older than her stated age, A&Ox3, is having difficulty putting a lid onto her plate with her R hand, speech fluent, able to move all 4 extremities, does have mild clumsiness in LUE HEENT: EOMI, MMM Heart: RRR, no m/r/g Lungs: CTAB Abdomen: soft, nontender, nondistended Extremities: Trace edema BLE's, able to move all 4 extremities, LUE clumsy as above Objective Last Vital Signs Temp 36.8 C 03/22/21 15:32 Pulse 74 03/22/21 15:32 Resp 17 03/22/21 15:32 BP 140/74 03/22/21 15:32 Pulse Ox 98 03/22/21 15:32 Laboratory Results - last 24 hr 03/21/21 03/21/21 03/21/21 17:00 17:00 18:38 WBC RBC Hgb Hct MCV MCH MCHC RDW Plt Count 286 MPV Immature Gran % 0.4 Neutrophils % 64.1 Lymphocytes % 28.7 Monocytes % 5.6 Eosinophils % 0.6 Basophils % 0.6 Nucleated RBC % 0 Absolute Neutrophils 6.91 H Absolute Lymphocytes 3.09 Absolute Monocytes 0.60 Absolute Eosinophils 0.07 Absolute Basophils 0.06 RBC Morphology See Below Polychromasia Present Hypochromasia 3+ Poikilocytosis 1+ Anisocytosis 2+ Microcytosis 3+ Sodium Potassium Chloride Carbon Dioxide Anion Gap BUN Creatinine Estimated GFR/1.73 m2 Glucose Calcium Total Bilirubin AST ALT Alkaline Phosphatase Troponin I Total Protein Albumin Triglycerides Total Cholesterol LDL Cholesterol, Calc HDL Cholesterol Urine RBC >50 H Urine WBC >50 H Ur Epithelial Cells Few Urine Crystals Negative Urine Bacteria Rare Urine Casts Negative Urine Mucus Negative Urine Other Few Renal Ur Culture Indicated? Yes COVID-19 Source SARS-CoV-2 (PCR) Patient ABO/Rh A Positive Antibody Screen NEGATIVE Crossmatch See Detail 03/21/21 03/21/21 03/22/21 19:23 20:05 03:05 WBC 9.68 RBC 3.36 L Hgb 6.8 L* Hct 23.9 L D MCV 71.1 L D MCH 20.2 L MCHC 28.5 L RDW 24.1 H Plt Count 240 MPV Immature Gran % 0.3 Neutrophils % 60.6 Lymphocytes % 29.8 Monocytes % 7.2 Eosinophils % 1.4 Basophils % 0.7 Nucleated RBC % 0 Absolute Neutrophils 5.86 Absolute Lymphocytes 2.88 Absolute Monocytes 0.70 Absolute Eosinophils 0.14 Absolute Basophils 0.07 RBC Morphology See Below Polychromasia Hypochromasia 3+ Poikilocytosis 1+ Anisocytosis 2+ Microcytosis 3+ Sodium Potassium Chloride Carbon Dioxide Anion Gap BUN Creatinine Estimated GFR/1.73 m2 Glucose Calcium Total Bilirubin AST ALT Alkaline Phosphatase Troponin I < 0.05 Total Protein Albumin Triglycerides Total Cholesterol LDL Cholesterol, Calc HDL Cholesterol Urine RBC Urine WBC Ur Epithelial Cells Urine Crystals Urine Bacteria Urine Casts Urine Mucus Urine Other Ur Culture Indicated? COVID-19 Source Nasal/Nares SARS-CoV-2 (PCR) Negative Patient ABO/Rh Antibody Screen Crossmatch 03/22/21 03/22/21 03/22/21 06:45 06:45 06:45 WBC 8.47 RBC 3.17 L Hgb 6.4 L* Hct 22.7 L MCV 71.6 L MCH 20.2 L MCHC 28.2 L RDW 23.6 H Plt Count 220 MPV Immature Gran % 0.2 Neutrophils % 63.4 Lymphocytes % 27.0 Monocytes % 7.1 Eosinophils % 1.7 Basophils % 0.6 Nucleated RBC % 0 Absolute Neutrophils 5.37 Absolute Lymphocytes 2.29 Absolute Monocytes 0.60 Absolute Eosinophils 0.14 Absolute Basophils 0.05 RBC Morphology See Below Polychromasia Hypochromasia 2+ Poikilocytosis Anisocytosis 2+ Microcytosis 2+ Sodium 142 Potassium 3.9 Chloride 109 H Carbon Dioxide 24.6 Anion Gap 8.4 BUN 8 Creatinine 0.8 Estimated GFR/1.73 m2 >= 60.00 Glucose 124 H Calcium 8.1 L Total Bilirubin 0.5 AST 10 L ALT 15 Alkaline Phosphatase 52 Troponin I Total Protein 6.2 L Albumin 3.1 L Triglycerides 93 Total Cholesterol 142 LDL Cholesterol, Calc 102 H HDL Cholesterol 22 L Urine RBC Urine WBC Ur Epithelial Cells Urine Crystals Urine Bacteria Urine Casts Urine Mucus Urine Other Ur Culture Indicated? COVID-19 Source SARS-CoV-2 (PCR) Patient ABO/Rh Antibody Screen Crossmatch 03/22/21 17:10 WBC RBC Hgb 8.6 L D Hct 29.6 L D MCV MCH MCHC RDW Plt Count MPV Immature Gran % Neutrophils % Lymphocytes % Monocytes % Eosinophils % Basophils % Nucleated RBC % Absolute Neutrophils Absolute Lymphocytes Absolute Monocytes Absolute Eosinophils Absolute Basophils RBC Morphology Polychromasia Hypochromasia Poikilocytosis Anisocytosis Microcytosis Sodium Potassium Chloride Carbon Dioxide Anion Gap BUN Creatinine Estimated GFR/1.73 m2 Glucose Calcium Total Bilirubin AST ALT Alkaline Phosphatase Troponin I Total Protein Albumin Triglycerides Total Cholesterol LDL Cholesterol, Calc HDL Cholesterol Urine RBC Urine WBC Ur Epithelial Cells Urine Crystals Urine Bacteria Urine Casts Urine Mucus Urine Other Ur Culture Indicated? COVID-19 Source SARS-CoV-2 (PCR) Patient ABO/Rh Antibody Screen Crossmatch Objective Narrative Objective Narrative: MRI brain: The above described ischemic infarcts in the right-side of the brain are most probably related to the critical stenosis in the proximal right internal carotid artery in the neck, seen on today's neck MRA study. T1 hyperintensity in the affected area in the right parietal lobe noted. No prominent blooming at this level evident on the gradient echo/susceptibility sequence. Possibly representing laminar necrosis. Cannot exclude petechial hemorrhage. MRA brain: 1. No evidence of intraluminal thrombus. However, there is a focal stenosis in the anterior aspect of the right A1 segment. 2. No aneurysms evident Neck MRA: Abnormal study. There is a high-grade critical stenosis just beyond the origin of the right internal carotid artery. CT angiography of the head and neck recommended. CTA head/neck ordered, pending Echo ordered, pending
[2021-03-22] MEDS: Omnipaque 350 MG/ML 100 ML BTL IJ (19:12)
[2021-03-22] MEDS: Normal Saline Flush 10 ML SYR IVP (19:38)
[2021-03-22] MEDS: Atorvastatin 40 MG TAB 80 MG PO (19:38)
--- NOTE | 2021-03-22 19:56 | DI.VRAD_ITS ---
PROCEDURE INFORMATION: Exam: CT Head Without Contrast Exam date and time: 03/22/2021 4:26 PM Age: 56 years old Clinical indication: Other: Multiple cvas, internal carotid a stenosis TECHNIQUE: Imaging protocol: Computed tomography of the head without contrast. COMPARISON: MR ANGIO BRAIN WO 03/22/2021 2:24 PM COMPARISON MORE: CT HEAD - STROKE PROTOCOL 03/21/2021 6:05:55 PM FINDINGS: Brain: Hypoattenuation within the right parieto-occipital cortex does not appear significantly changed. This area measures approximately 4 cm in diameter. More subtle hypodensity and loss of rosen/white differentiation within the right frontal cortex also appears unchanged. No evidence of acute intracranial hemorrhage. No mass effect. Cerebral ventricles: No ventriculomegaly. Paranasal sinuses: Visualized sinuses are unremarkable. No fluid levels. Mastoid air cells: Visualized mastoid air cells are well aerated. Bones/joints: Unremarkable. No acute fracture. Soft tissues: Unremarkable. IMPRESSION: Right parieto-occipital encephalomalacia and hypo attenuation consistent with acute and chronic infarct. Subtle loss of rosen/white differentiation within the right frontal cortex consistent with acute infarct, unchanged. PROCEDURE INFORMATION: Exam: CT Angiography Head With Contrast, Arteriography Exam date and time: 03/22/2021 4:26 PM Age: 56 years old Clinical indication: Other: Multiple cvas, internal carotid a stenosis TECHNIQUE: Imaging protocol: Computed tomography angiography of the head with contrast. Exam focused on the arteries. 3D rendering (Not supervised by radiologist): MIP and/or 3D reconstructed images were created by the technologist. Contrast material: OMNIPAQUE 350; Contrast volume: 80 ml; Contrast route: INTRAVENOUS (IV); COMPARISON: MR ANGIO BRAIN WO 03/22/2021 2:24 PM FINDINGS: ANTERIOR CIRCULATION: Right internal carotid artery: Unremarkable. Intracranial segment is patent with no significant stenosis. No aneurysm. Right middle cerebral artery: Unremarkable. No occlusion or significant stenosis. No aneurysm. Right anterior cerebral artery: Unremarkable. No occlusion or significant stenosis. No aneurysm. Left internal carotid artery: Unremarkable. Intracranial segment is patent with no significant stenosis. No aneurysm. Left middle cerebral artery: Unremarkable. No occlusion or significant stenosis. No aneurysm. Left anterior cerebral artery: Unremarkable. No occlusion or significant stenosis. No aneurysm. POSTERIOR CIRCULATION: Right vertebral artery: Unremarkable. No occlusion or significant stenosis. No aneurysm. Left vertebral artery: Unremarkable. No occlusion or significant stenosis. No aneurysm. Basilar artery: Unremarkable. No occlusion or significant stenosis. No aneurysm. Right posterior cerebral artery: Unremarkable. No occlusion or significant stenosis. No aneurysm. Left posterior cerebral artery: Unremarkable. No occlusion or significant stenosis. No aneurysm. Brain: No definite mass, mass effect, or midline shift. Acute chronic ischemic changes are noted as described on the noncontrast head CT. Cerebral ventricles: No ventriculomegaly. Bones/joints: Unremarkable. No acute fracture. Soft tissues: Unremarkable. IMPRESSION: No large vessel stenosis or occlusion. PROCEDURE INFORMATION: Exam: CT Angiography Neck With Contrast Exam date and time: 03/22/2021 4:26 PM Age: 56 years old Clinical indication: Other: Multiple cvas, internal carotid a stenosis TECHNIQUE: Imaging protocol: Computed tomography angiography of the neck with contrast. 3D rendering (Not supervised by radiologist): MIP and/or 3D reconstructed images were created by the technologist. Contrast material: OMNIPAQUE 350; Contrast volume: 80 ml; Contrast route: INTRAVENOUS (IV); COMPARISON: MR ANGIO BRAIN WO 03/22/2021 2:24 PM FINDINGS: Right common carotid artery: No stenosis. No dissection or occlusion. Right internal carotid artery: No stenosis of the extracranial segment. No dissection or occlusion. Right external carotid artery: No occlusion or stenosis of the origin. Left common carotid artery: No stenosis. No dissection or occlusion. Left internal carotid artery: No stenosis of the extracranial segment. No dissection or occlusion. Left external carotid artery: No occlusion or stenosis of the origin. Right vertebral artery: No stenosis. No dissection or occlusion. Left vertebral artery: No stenosis. No dissection or occlusion. Soft tissues: Normal. No significant soft tissue swelling. Bones/joints: No acute fracture. Mild cervical spondylosis. IMPRESSION: No significant carotid or vertebral artery stenosis or occlusion. REFERENCES: NASCET CRITERIA. The degree of internal carotid artery stenosis is based on NASCET criteria. Normal is no stenosis. Mild is less than 50% stenosis. Moderate is 50-69% stenosis. Severe is 70% to 99% stenosis. Total occlusion is no detectable patent lumen. Dictated and Authenticated by: Carlos Gerber MD. Ordering:FRANCIE Cox MD
[2021-03-22] MEDS: Normal Saline 1,000 ML 150 ML IV (22:30)
--- NOTE | 2021-03-22 23:21 | NUR.NOTE ---
Nursing Note: Around 21:50 this RN answered the patient's call mehta. She had vaginal bleeding that soaked the bed pad and continued to bleed onto the sheets. This RN helped patient with bathing and provided disposable underwear with bladder pads. This RN inspected the bed pad closer, noting at least three large blood clots in addition to the blood soaked into the pad. Will continue to monitor.
[2021-03-23] VITALS (17 sets, daily range): BP systolic 137–210; BP diastolic 74–98; PULSE 66–92; RESP 15–20; TEMP 36.4–37.2; O2SAT 96–99
--- NOTE | 2021-03-23 | DI.US_ITS ---
APPROVED REPORT EXAM: Comprehensive 2D, Doppler, and color-flow Echocardiogram Patient Location: In-Patient Room/Bed: [address] Machine Tender: Carina Lemos RDCS (AE) Indications: CVA Other Information Study Quality: Adequate Conclusion Normal left ventricular wall thickness and chamber size. Estimated ejection fraction is 55 to 60%. Wall motion is normal Normal right ventricular size and systolic function Both atria are normal in size There is no significant structural valvular disease Trace aortic, mitral, and tricuspid regurgitation Estimated right ventricular systolic pressure is 37 mmHg Wall motion Left Ventricle The left ventricle is normal size. The left ventricular systolic function is normal. The left ventric ular ejection fraction is within the normal range. There is normal left ventricular wall thickness. T here is normal LV segmental wall motion. There is no ventricular septal defect visualized. LVEF is 55 -60%. Right Ventricle The right ventricle is normal size. The right ventricular systolic function is normal. The RVSP is 37 .3 mmHg. Atria The left atrium size is normal. The right atrium size is normal. The interatrial septum is intact wit h no evidence for an atrial septal defect. Aortic Valve The aortic valve is normal in structure. Aortic valve is trileaflet. There is no aortic valvular sten osis. No aortic regurgitation is present. Trace aortic regurgitation. Mitral Valve The mitral valve is normal in structure. No evidence of mitral valve stenosis. Trace mitral regurgita tion. Tricuspid Valve The tricuspid valve is normal in structure. There is no tricuspid valve stenosis. Trace tricuspid reg urgitation. Pulmonic Valve The pulmonary valve is normal in structure. There is no pulmonic valvular stenosis. There is no pulmo chiquis valvular regurgitation. Great Vessels The aortic root is normal in size. The ascending aorta is normal in size. The IVC collapses <50% with inspiration. Pericardium There is no pericardial effusion. 2D Dimensions IVSD d PLAX 1.03 cm F: 0.6-1.0 LV Vol A2C d MOD 142.9 mL LVPW d PLAX 1.04 cm F: 0.6 - 1.0 LV Vol A4C d MOD 143.3 mL LVID d PLAX 4.77 cm F: 3.8 - 5.2 LA vol/ BSA A2C s A-L 25.3 mL/m2 LVDs 3.50 cm F: 2.2 - 3.5 LA vol/ BSA A4C s A-L 38.9 mL/m2 Ao Root d 2.42 cm F: 2.7 - 3.3 LA Vol/ BSA Biplane s A-L 31.4 mL/m2 RA Area A4C 17.58 cm2 LA Area A4C s MOD 25.04 cm2 RA Vol/ BSA A4C s A-L 20.7 mL/m2 LA Area A2C s MOD 20.15 cm2 Ao Asc Diam d 2.86 cm F: 2.3 - 3.1 LV EF A4C MOD 52.5 % LV EF Teichholz 51.5 % LV EF A2C MOD 51.5 % LVEF (Tejeda's) 50.84 % F: 54 - 74 LV EF Biplane MOD 50.8 % LV Volume 103.13 mL F: 46 - 106 SV 72.88 mL LV Volume Index 45.23 mL/m2 F: 29 - 61 SV Index 31.98 mL/m2 LV Vol Biplane MOD 143.4 mL FS 26.25 % M-Mode TAPSE 2.86 cm (M/F) >1.7 LV Diastology MV E' medial 0.108 (>0.07 m/s) E/A Ratio 1.2 LV E/e MED 13.35 (<14) MV E Vmax 1.44 (0.4-1.3 m/s) MV E' lateral 0.088 (>0.1 m/s) MV A Vmax 1.20 (0.4-1.3 m/s) LV E/e LAT 16.30 (<14) MV E/A Ratio 1.17 MV E/E' medial 13.36 MV E/E' lateral 16.33 Aortic Valve LVOT Area 2.92 cm2 AoV Area Vmax 1.98 cm2 LVOT Vmax 1.31 m/s AoV Area/ BSA (Vmax) 0.87 cm2/m2 LVOT Mean Rivera. 1.00 m/s ALISON Mean Rivera. 2.12 cm2 LVOT Peak Grad 6.9 mmHg ALISON Mean Rivera. Index 0.93 cm2/m2 LVOT Mean Grad 4.3 mmHg LVOT VTI 0.310 m LVOT Diam s 1.90 cm AoV Vmax 1.93 m/s Velocity Ratio 0.67 AoV Mean Rivera. 1.38 m/s AoV Peak Grad 15.0 mmHg LVOT SV 90.62 mL AoV Mean Grad 8.4 mmHg AoV VTI 0.455 m AoV Area VTI 1.99 cm2 AoV Area/ BSA (VTI) 0.87 cm/m2 Mitral Valve MV DT 246 (160-240 msec) MV PHT 71 msec MV Area PHT 3.08 cm2 Pulmonary Valve PV Vmax 1.20 (0.5-1.5 m/s) RVOT Peak Gr. 2.03 mmHg PV Peak Grad 5.7 mmHg RVOT Mean Gr. 1.15 mmHg PV Mean Grad 3.0 mmHg RVOT VTI 0.187 m PV VTI 0.280 m RVOT Vmax 0.71 m/s Tricuspid Valve TR Peak Grad 29.2 mmHg TR Vmax 2.71 m/s RA Pressure 8.00 mmHg RVSP (TR) 37.3 mmHg
[2021-03-23] MEDS: Acetaminophen 325 MG TAB 650 MG PO ×3 (03:04→19:32)
[2021-03-23] MEDS: Normal Saline 1,000 ML 150 ML IV ×2 (04:57→16:26)
[2021-03-23 07:00] LABS: Absolute Basophil Count 0.05 10^3/uL (0.0-0.2); Absolute Eosinophil Count 0.13 10^3/uL (0.0-0.7); Basophils % 0.6; Nucleated RBC 0 %
[2021-03-23 07:14] LABS: Abs Immature Grans 0.03 10^3/uL (0.0-0.06); Absolute Lymphocyte Count 2.14 10^3/uL (1.2-3.4); Absolute Monocyte Count 0.51 10^3/uL (0.1-0.8); Eosinophils % 1.5; HCT 26.7 % (36.0-46.0); HGB 7.7 g/dL (11.2-15.7); Immature Grans % 0.4; MCH 21.4 pg (27.0-33.0); MCHC 28.8 % (32.0-36.0); MCV 74.4 fL (80-95); Neutrophils % 66.5; Platelet Count 227 10^3/uL (130-400); RBC 3.59 10^6/uL (3.93-5.22); RDW 24.3 % (11.7-14.6); RDW-SD 63.7 fL; WBC 8.56 10^3/uL (4.4-10.8)
[2021-03-23 07:22] LABS: Absolute Neutrophil Count 5.69 10^3/uL (1.2-6.7)
[2021-03-23] MEDS: medroxyPROGESTERone 5 MG TAB PO (07:28)
[2021-03-23 07:42] LABS: Anion Gap 10.9 mmol/L (3-11); Anisocytosis 3+; BUN 5 mg/dL (7-18); CO2 23.1 mmol/L (21.0-32.0); CREATININE 0.7 mg/dL (0.55-1.02); Calcium 8.2 mg/dL (8.5-10.1); Chloride 110 mmol/L (98-107); Diff Comment Diff Reviewed; Glucose 108 mg/dL (74-106); Hypochromasia 1+; Magnesium 1.9 mg/dL (1.8-2.4); Microcytosis 1+; Polychromasia Present; Potassium 3.7 mmol/L (3.5-5.1); Sodium 144 mmol/L (136-145); TSH (W/Ref FT4) 1.24 uIU/mL (0.36-3.74); Vitamin B12 169 pg/mL (193-986)
[2021-03-23 07:43] LABS: Poikilocytes 1+
--- NOTE | 2021-03-23 08:35 | PT.INIE ---
Date of service: 03/23/21 Time of Service: 08:00 PT Notes Visit Reasons: Acute Blood Loss Anemia,CVA, Menorrhagia Inpatient Physical Therapy Evaluation Date: 03/23/21 Referring Doctor: Jared El PT Orders: PT CONSULT: Limited ability Precautions: Standard Patient Profile/Admitting Diagnosis: 56-year-old lady with menorrhagia over the last month and worsening recently, presenting with anemia and left neurological deficits and positive right CVA which is subacute by CT. She is S/P blood transfusion. PMHX: Medical History Asthma Obesity Postmenopausal bleeding Thickened endometrium Social History/Home Situation: Lives alone in a one story home, one step to enter. Works FT at [employer]. She has a daughter that lives nearby that is supportive. She drives, and functional independently at baseline. Current Functional Limitations: CG with stair navigation, and supervision with ambulation due to slight L neglect. Lacking coordination L UE Equipment Owned/DME: None Subjective: Denies pain. Reports to have been suffering from recent weakness and fatigue over the course of the last week, to the point where she was struggling to ambulate stairs and do basic walking. She reports her L UE feels funny and is not working right, her L leg to a lesser degree. Objective: General Observation: Sitting at bed side, IV R cubital fossa Mental Status: A & O x3 Pain: 0/10 Vital Signs: BP 137/74, HR 79 ROM: Right Upper Extremity: Grossly WNL Left Upper Extremity: Active flex 80 deg, abd 70. Passive flex 120 deg, abd 90 deg, ER 45 deg, IR 60 deg. Otherwise, WNL Right Lower Extremity: Grossly WNL Left Lower Extremity: Grossly WNL Strength: Right Upper Extremity: Grossly 5/5 Left Upper Extremity: Grossly 4+/5 Right Lower Extremity: Grossly 5/5 Left Lower Extremity: Grossly 5/5 Sensation: Intact to light touch, but notes L feels different, is able to locate pressure and light touch through L extremities. Bed Mobility/Transfers: Sit to stand close supervision Stand to sit independent Bed mobility independent Supine <> EOB independent Gait: Close supervision 200 ft, use of L IV pole. Requires cues for placement of L IV pole and avoidance of objects on L, demonstrating some L neglect. 4 steps, up and down reciprocally, with use of R rail. Struggles to make contact with rail initially with L UE due to coordination impairment. Balance: Static Sitting: Good Dynamic Sitting: Good Static Standing: Fair Dynamic Standing: Fair Stage 4 Balance Test Time (seconds) Feet together 10 Partial tandem 10 Tandem 10 s, CG required One foot 10 s, CG required Special Tests: Mobility Limitations Standardized Measure [facility] AM-PAC 6 clicks Basic Mobility Inpatient Short Form: 20 % disability Coordination testing: Unable to do smooth movement with quick finger to nose movements, not able to make contact with finger or nose, with deviation. Informed Consent/Education: Patient instructed in purpose of PT consult and plan of care. Assessment: Patient is a 56 year old female referred to physical therapy services with the diagnosis of R CVA with L neurological deficits in the setting of anemia with complications from menorrhagia. Patient presents with clinical signs and symptoms consistent with CVA, as demonstrated by the following impairment level findings of neurological coordination deficit of L UE, mild L sided neglect, mild balance deficit and proprioceptive deficit of L side. Impairments are contributing to the following functional limitations: AMPAC score of 20% disability, supervision with ambulation for safety, and balance deficit. Patient is assessed as a Moderate 21515 complexity based on the following: History: See comorbidites Examination: See above listed impairments and functional limitations in assesment. Presentation: Evolving Decision Making: Moderate Goals: Goals X1 week 1. Supine-Sit I 2. Sit-Supine I 3. Sit-Stand I 4. Stand-Sit I 5. Bed-Chair I 6. Chair-Bed I 7. Gait 500 ft, independently, no L neglect 8. Stairs 1, independently, with rail 9. Independent with home exercise program 10. Balance 10 sec independent with stage 4 balance test Plan of Care/Treatment Plan: 1-2x/day, 7 days/week x 1 week. Plan of care has been reviewed with the PALAEONTOLOGIST providing the service under Physical Therapy direction. Initiate Physical Therapy intervention for strengthening, bed mobility, transfers, gait, stairs, balance training, use of assistive device. DISCHARGE RECOMMENDATIONS: Home with outpatient PT if she continues to demonstrate balance deficits. Outpatient OT for coordination and functional use of L UE. TREATMENT CODE/TIME: 30 min, [id number]
--- NOTE | 2021-03-23 09:06 | OT.INNT ---
Date of service: 03/23/21 Time of Service: 09:06 Occupational Therapy Notes 03/23/21 OT attempted to see pt who is down getting an echocardiogram this morning. She will be back later this morning. Candie Christiansen OTR/[facility]
[2021-03-23] MEDS: Ferrous Sulfate 325 MG TAB PO ×2 (09:29→19:34)
[2021-03-23] MEDS: Ascorbic Acid 500 MG TAB 250 MG PO ×2 (09:29→19:33)
[2021-03-23] MEDS: diphenhydrAMINE 25 MG CAP PO (09:35)
[2021-03-23] MEDS: Norethindrone 5 MG TAB 10 MG PO ×2 (11:10→19:34)
--- NOTE | 2021-03-23 12:51 | W.PM.PROGNOT ---
Date of Service Date of service: 03/23/21 Time of Service: 12:51 Assessment and Plan Assessment and plan (1) CVA (cerebral vascular accident): Status: Acute Qualifiers: CVA mechanism: stenosis Precerebral and cerebral artery: anterior cerebral artery Laterality of affected vessel: right Qualified Code(s): I63.521 - Cerebral infarction due to unspecified occlusion or stenosis of right anterior cerebral artery (2) Anemia: Status: Chronic (3) Acute blood loss anemia: Status: Acute (4) Carotid stenosis, right: Status: Acute Assessment and plan: Ms. Sadler is a 56 year-old, right-handed woman admitted with: #1. Left arm weakness/clumsiness/numbness and dysarthria secondary to acute ischemic stroke. MRI brain with acute right hemisphere ischemia in a borderzone distribution secondary to right carotid stenosis in setting of profound anemia with ongoing postmenopausal uterine bleeding. She is in a tricky situation. [place] [facility] [place] [facility] [place] is a candidate for CEA at this time due to ongoing bleeding; and neither feel she is a candidate for D&C at this time due to recent stroke and carotid stenosis. She can't be placed on anti-platelets due to ongoing bleeding... Thus, plan currently is to stabilize anemia with planned outpatient D&C vs hysterectomy after which anti-platelets should hopefully be started and then consideration for CEA vs stent vs medical management. -Continue high-dose statin inpatient and at discharge. -Continue high dose IVF to help with hypovolemia/support perfusion/volume supplementation. -[place] BP >140; avoid hypotension!!! -She will need diabetes screening as an outpatient (anemia and transfusions mean we cannot check A1c) -OT -Smoking cessation -Will need outpatient vascular surgery consult Follow-up in neurology clinic in 4-6 weeks. Subjective Subjective Interval history since last seen: s/p 4U PRBCs yesterday and Hgb up to 8.6. Continued to bleed overnight. Hgb dropped to 7.7 this am. Transfused another 1U PRBC today. Essentially in a sticky situation. Neither [facility] or [facility] [place] feel she is a candidate for CEA at this time due to ongoing bleeding; and neither feel she is a candidate for D&C at this time due to recent stroke and carotid stenosis. Can't be placed on anti-platelets due to ongoing bleeding... -CTA head/neck (03/22/21): proximal R ICA stenosis (though read by rads as normal...). I reviewed these images personally and this is my personal interpretation. Exam Narrative Exam Narrative: Physical Exam: Constitutional: Patient of apparent stated age, well nourished, well developed, no acute distress Neuro: MS/Language/Speech: Alert, oriented, clear language (fluency and comprehension), no dysarthria Motor: Normal bulk and tone. FMM intact, no pronator drift - perhaps subtle L parietal drift today. 5/5 strength in bilateral upper extremities Coordination: Finger to nose performed without dysmetria Objective Last Vital Signs Temp 37.0 C 03/23/21 12:30 Pulse 71 03/23/21 12:30 Resp 18 03/23/21 12:30 BP 151/84 H 03/23/21 12:30 Pulse Ox 98 03/23/21 12:30 Laboratory Results - last 24 hr 03/21/21 03/22/21 03/23/21 17:00 17:10 06:26 WBC RBC Hgb 8.6 L D Hct 29.6 L D MCV MCH MCHC RDW Plt Count MPV Immature Gran % Neutrophils % Lymphocytes % Monocytes % Eosinophils % Basophils % Nucleated RBC % Absolute Neutrophils Absolute Lymphocytes Absolute Monocytes Absolute Eosinophils Absolute Basophils RBC Morphology Polychromasia Hypochromasia Poikilocytosis Anisocytosis Microcytosis Sodium 144 Potassium 3.7 Chloride 110 H Carbon Dioxide 23.1 Anion Gap 10.9 BUN 5 L Creatinine 0.7 Estimated GFR/1.73 m2 >= 60.00 Glucose 108 H Calcium 8.2 L Magnesium 1.9 Vitamin B12 169 L TSH 1.24 Patient ABO/Rh A Positive Antibody Screen NEGATIVE Crossmatch See Detail 03/23/21 06:26 WBC 8.56 RBC 3.59 L Hgb 7.7 L Hct 26.7 L MCV 74.4 L MCH 21.4 L MCHC 28.8 L RDW 24.3 H Plt Count 227 MPV Immature Gran % 0.4 Neutrophils % 66.5 Lymphocytes % 25.0 Monocytes % 6.0 Eosinophils % 1.5 Basophils % 0.6 Nucleated RBC % 0 Absolute Neutrophils 5.69 Absolute Lymphocytes 2.14 Absolute Monocytes 0.51 Absolute Eosinophils 0.13 Absolute Basophils 0.05 RBC Morphology See Below Polychromasia Present Hypochromasia 1+ Poikilocytosis 1+ Anisocytosis 3+ Microcytosis 1+ Sodium Potassium Chloride Carbon Dioxide Anion Gap BUN Creatinine Estimated GFR/1.73 m2 Glucose Calcium Magnesium Vitamin B12 TSH Patient ABO/Rh Antibody Screen Crossmatch
[2021-03-23 15:22] LABS: HCT 29.1 % (36.0-46.0); HGB 8.4 g/dL (11.2-15.7)
--- NOTE | 2021-03-23 16:03 | PGE_ITS ---
Date of Service Date of service: 03/23/21 Time of Service: 16:04 Assessment and Plan Assessment and plan (1) Cerebral ischemic stroke due to global hypoperfusion with watershed infarct: Status: Acute Assessment and plan: While radiology did not mention critical right carotid artery stenosis on the CTA read, both Dr Hopkins and Dr [place] at [facility]) see a focal stenosis at the bifurcation of the R carotid artery which is contributing to these watershed area strokes. Hypoperfusion due to anemia is a big factor. Discussed with both [facility] and [facility] - the patient is not felt to be a candidate for an acute intervention for her R internal carotid A stenosis.She will need to follow up with vascular surgery for a procedure in 1-2 months. Goals for now are to ensure that the bleeding stops and H/H remains stable. Neither Dr Lancaster nor Dr Church felt that aspirin would be a good idea at this time. Continue high dose statin. (2) Carotid stenosis, right: Status: Acute Assessment and plan: As above (3) Acute blood loss anemia: Status: Acute Assessment and plan: S/p 5 units pRBCs. H/H better but will need to be rechecked in am. The patient continues to bleed. Provera changed to aygestin. Neurology felt that progestin-only agents would be safer as far as risk of stroke than estrogen containing agents. (4) Dysfunctional uterine bleeding: Status: Acute Assessment and plan: As above. Prior endometrial bx negative. [facility] did recommend possibly repeating it, recognizing that it might cause a vasovagal reaction and perhaps now is not the best time. I discussed this with Dr Church, and neither of us feel that this is the right thing to do at this time. She will need outpatient follow up for D&C vs hysterectomy. As far as further maging, CT w/w/o contrast vs MRI would be appropriate, per [facility], but the patient just got CT with IV contrast yesterday. Consider MRI tomorrow vs CT w/w/o contrast in a few days. Malignancy is a possibility. (5) Tobacco abuse: Status: Acute Assessment and plan: Provide nicotine replacement (6) DVT prophylaxis: Status: Acute Assessment and plan: SCDs Chemical DVT ppx is contraindicated in setting of acute bleeding. (7) Discharge planning issues: Status: Acute Assessment and plan: Full code Continues to require hospitalization. Per my conversations with both [facility] and [facility], there would be no additional benefit from transfer to a tertiary care facility at this time. Subjective Subjective Interval history since last seen: Ms Sadler continues to have LUE clumsiness. Her speech is at baseline. Denies dizziness, chest pain, shortness of breath, nausea. Required transfusion of 1 more unit of pRBCS today (total of 5 so far on this admission) - repeat H/H 8.4 from 7.7. Passed a large amount of clots overnight. Discussed with Dr Church of [facility] - recommended changing from provera to aygestin. Exam Narrative Exam Narrative: General: Pleasant milddle-aged female who looks older than her stated age, A&Ox3, remains mildly clumsy in her LUE, fluent speech HEENT: EOMI, MMM Heart: RRR, no m/r/g Lungs: CTAB Abdomen: soft, nontender, nondistended Extremities: Trace edema BLE's, able to move all 4 extremities, LUE clumsy as above Objective Last Vital Signs Temp 37.0 C 03/23/21 12:30 Pulse 71 03/23/21 12:30 Resp 18 03/23/21 12:30 BP 151/84 H 03/23/21 12:30 Pulse Ox 98 03/23/21 12:30 Laboratory Results - last 24 hr 03/21/21 03/22/21 03/23/21 17:00 17:10 06:26 WBC RBC Hgb 8.6 L D Hct 29.6 L D MCV MCH MCHC RDW Plt Count MPV Immature Gran % Neutrophils % Lymphocytes % Monocytes % Eosinophils % Basophils % Nucleated RBC % Absolute Neutrophils Absolute Lymphocytes Absolute Monocytes Absolute Eosinophils Absolute Basophils RBC Morphology Polychromasia Hypochromasia Poikilocytosis Anisocytosis Microcytosis Sodium 144 Potassium 3.7 Chloride 110 H Carbon Dioxide 23.1 Anion Gap 10.9 BUN 5 L Creatinine 0.7 Estimated GFR/1.73 m2 >= 60.00 Glucose 108 H Calcium 8.2 L Magnesium 1.9 Vitamin B12 169 L TSH 1.24 Patient ABO/Rh A Positive Antibody Screen NEGATIVE Crossmatch See Detail 03/23/21 03/23/21 06:26 15:16 WBC 8.56 RBC 3.59 L Hgb 7.7 L 8.4 L Hct 26.7 L 29.1 L MCV 74.4 L MCH 21.4 L MCHC 28.8 L RDW 24.3 H Plt Count 227 MPV Immature Gran % 0.4 Neutrophils % 66.5 Lymphocytes % 25.0 Monocytes % 6.0 Eosinophils % 1.5 Basophils % 0.6 Nucleated RBC % 0 Absolute Neutrophils 5.69 Absolute Lymphocytes 2.14 Absolute Monocytes 0.51 Absolute Eosinophils 0.13 Absolute Basophils 0.05 RBC Morphology See Below Polychromasia Present Hypochromasia 1+ Poikilocytosis 1+ Anisocytosis 3+ Microcytosis 1+ Sodium Potassium Chloride Carbon Dioxide Anion Gap BUN Creatinine Estimated GFR/1.73 m2 Glucose Calcium Magnesium Vitamin B12 TSH Patient ABO/Rh Antibody Screen Crossmatch
--- NOTE | 2021-03-23 17:21 | CMPROGNOTE_ITS ---
Care Management Progress Note S/O: Geeta was sitting on the side of her bed, her daughter brushing her hair when CM and MD met with her. MD reviewed treatment recommendations including medications to stop Geeta from bleeding, and the need for her hemoglobin to stabilize prior to discharge. Anticipate Geeta will follow up with neurosurgery as an outpatient, per MD. CM continues to follow. A: 56 year old female admitted to [facility] 03/21/21 for acute blood loss anemia, CVA, menorrhagia P: Geeta continues to be closely monitored and treated. Awaiting hemoglobin stabilization for duration of 24 hours prior to discharge. Outpatient follow up with neurosurgery at [place] or [facility] [[email or web address] is anticipated for follow up. Geeta will transport via private vehicle with her daughter. CM continues to follow.
[2021-03-23] MEDS: Atorvastatin 40 MG TAB 80 MG PO (19:33)
[2021-03-23] MEDS: Docusate Sodium 100 MG CAP PO (19:35)
[2021-03-24] VITALS (9 sets, daily range): BP systolic 130–161; BP diastolic 65–82; PULSE 68–86; RESP 14–19; TEMP 36.4–37.1; O2SAT 95–98
[2021-03-24] MEDS: Normal Saline 1,000 ML 150 ML IV ×2 (03:22→10:13)
[2021-03-24 08:01] LABS: Abs Immature Grans 0.03 10^3/uL (0.0-0.06); Absolute Basophil Count 0.05 10^3/uL (0.0-0.2); Absolute Eosinophil Count 0.14 10^3/uL (0.0-0.7); Absolute Lymphocyte Count 1.92 10^3/uL (1.2-3.4); Absolute Monocyte Count 0.55 10^3/uL (0.1-0.8); Absolute Neutrophil Count 5.98 10^3/uL (1.2-6.7); Basophils % 0.6; Eosinophils % 1.6; HCT 28.4 % (36.0-46.0); HGB 8.2 g/dL (11.2-15.7); Immature Grans % 0.3; Lymphocytes % 22.1; MCH 22.2 pg (27.0-33.0); MCHC 28.9 % (32.0-36.0); Monocytes % 6.3; Neutrophils % 69.1; Nucleated RBC 0 %; RBC 3.69 10^6/uL (3.93-5.22); RDW 24.6 % (11.7-14.6); RDW-SD 67.8 fL; WBC 8.67 10^3/uL (4.4-10.8)
[2021-03-24 08:16] LABS: Anion Gap 8.2 mmol/L (3-11); BUN 5 mg/dL (7-18); CO2 24.8 mmol/L (21.0-32.0); CREATININE 0.7 mg/dL (0.55-1.02); Calcium 8.3 mg/dL (8.5-10.1); Chloride 111 mmol/L (98-107); Glucose 118 mg/dL (74-106); Magnesium 1.9 mg/dL (1.8-2.4); Potassium 3.5 mmol/L (3.5-5.1); Sodium 144 mmol/L (136-145)
[2021-03-24 08:25] LABS: Anisocytosis 2+; Diff Comment Diff Reviewed
[2021-03-24 08:26] LABS: Hypochromasia 1+; Microcytosis 1+; Platelet Count 221 10^3/uL (130-400)
[2021-03-24] MEDS: Norethindrone 5 MG TAB 10 MG PO ×2 (09:19→20:06)
[2021-03-24] MEDS: Cyanocobalamin 500 MCG TAB 1000 MCG PO (09:20)
[2021-03-24] MEDS: Ferrous Sulfate 325 MG TAB PO ×2 (09:20→20:04)
[2021-03-24] MEDS: Ascorbic Acid 500 MG TAB 250 MG PO ×2 (09:20→20:06)
--- NOTE | 2021-03-24 10:40 | PT.INTREAT ---
Date of service: 03/24/21 Time of Service: 10:40 PT Notes Visit Reasons: Acute Blood Loss Anemia,CVA, Menorrhagia Inpatient Physical Therapy Treatment Note [facility] Date: 03/24/2021 PRECAUTIONS: Activity as tolerated. SUBJECTIVE: Looking forward to talking with MD regarding her bleeding issue. Unsure of when she can go home. Verbalizes inability to fully control L hand and forearm. Has been waiting for somebody to help her wash up. OBJECTIVE: Seen standing in her room by the bed watching TV, not holding onto anything. Appears to be easily distracted but is redirectible to task. Oftentimes verbalization of topic stops as patient's thought process gets halted. PAIN: Some discomfort reported in her lower abdominal area that did not limit ambulation tolerance. BED MOBILITY/TRANSFERS Rolling L/R: Independent Supine-sit: Independent Sit-supine: Independent Sit-stand: Independent Stand-sit: Independent Bed-Chair: Independent Chair-bed: Independent GAIT Assistive Device: No assistive device Weight bearing: Full weight bearing Assist: Supervision Distance: 350 feet Deviation: Mild path deviation but no LOB. 1/10 in lower abdominal area. Able to discriminate objects on her L side throughout activity. Patient verbalizes that there has been no change in how she walks. STAIRS: Up and down 6 x 4-inch steps and 4 x 6-inch steps while holding onto B rails with supervision and moderate verbal cueing for sequence. THEREX: NuStep machine to facilitate alternating limb movement for 5 minutes with R of 9 with good response. THERA ACT: Facilitated increased awareness, motor planning, and motor execution of L UE utilizing cones to be stacked up by color; also worked on combined task completion/planning with L UE strengthening by replacing 3 lb DB x 4 onto shelving inside cabinet. ASSESSMENT: Independent without AD inside room for all transfer and ambulation, supervision in the hallway. Decreased L UE coordination with rapid alternating movement. May benefit from HH PT/OT to address strength, coordination, and motor control issues PLAN: Increase challenge with L UE activities to improve L UE coordination. TREATMENT CODE/TIME: 19274 x 30 minutes beginning at 10:40 AM.
--- NOTE | 2021-03-24 10:50 | CMPROGNOTE_ITS ---
- If Service Date Differs Date of service: 03/24/21 Time of Service: 10:50 Care Management Progress Note S/O: Geeta was sitting up in her chair when CM met with her. She is feeling much better today and is looking forward to going home tomorrow. Geeta reports that she is doing well without smoking. CM offered to arrange smoking cessation counseling however patient declined. Anticipate Geeta will follow up with neurosurgery as an outpatient, per MD. Also, Geeta does not have a PCP but is agreeable to seeing Dr. Contreras per oncall schedule for an outpatient follow up. CM provided Geeta with a list of local PCP's and encouraged her establish care with the PCP. A: 56 year old female admitted to [facility] 03/21/21 for acute blood loss anemia, CVA, menorrhagia P: Geeta continues to be closely monitored and treated. Awaiting hemoglobin stabilization for duration of 24 hours prior to discharge. Anticipate Geeta will be discharged home tomorrow and follow up [place] [facility] [place] [facility] as an outpatient. Geeta will transport via private vehicle with her daughter. CM continues to follow.
--- NOTE | 2021-03-24 12:24 | PGE_ITS ---
Date of Service Date of service: 03/24/21 Time of Service: 12:24 Assessment and Plan Assessment and plan (1) Dysfunctional uterine bleeding: Status: Acute (2) Cerebral ischemic stroke due to global hypoperfusion with watershed infarct: Status: Acute (3) Carotid stenosis, right: Status: Acute (4) Acute blood loss anemia: Status: Acute (5) Obesity: Status: Chronic (6) Postmenopausal bleeding: Status: Acute Assessment and plan: Patient seen today. Bleeding has significantly diminished. She is currently using norethindrone acetate, 10 mg twice daily. This is goal is to stabilize the endometrial lining. She had a previous endometrial biopsy that was benign Pap smear is benign, however she does have a 3 cm endometrial stripe. She has had significant post menopausal bleeding with acute blood loss anemia consistent with hemorrhage which contributed to her ischemic stroke due to global hypoperfusion. She has significant right carotid stenosis. In light of the all these factors, she is not a candidate for surgery intervention here at a tertiary care facility. Her best option is to stabilize her bleeding medically. If and when she is discharged home, she should continue her Aygestin or norethindrone acetate 10 mg twice daily. She will need surgical exploration via hysteroscopy to evaluate the endometrial lining and possible removal of polyp if it is present and further evaluate for the possibility of an underlying adenocarcinoma that was not picked up on her endometrial biopsy. This should be done in a tertiary care center due to her comorbidities. We will continue to follow as patient is present in the hospital. As of note, outpatient referral for gynecology at [facility] had been placed if she is able to follow-up as an outpatient. Subjective Subjective Patient reports: no new complaints, feels better and tolerating a regular diet; denies nausea and shortness of breath Interval history since last seen: Bleeding less over the night Exam Const General: cooperative, no acute distress, well developed and other (less pale) Nutritional Appearance: overweight Orientation: alert and oriented x3 Eyes General: appearance normal, both eyes and all related structures Resp Effort & Inspection: normal respiratory effort Cardio Rate: regular rate Objective Last Vital Signs Temp 97.7 F 03/24/21 11:48 Pulse 68 03/24/21 11:48 Resp 19 03/24/21 11:48 BP 143/65 H 03/24/21 11:48 Pulse Ox 97 03/24/21 11:48 Laboratory Results - last 24 hr 03/21/21 03/23/21 03/24/21 17:00 15:16 06:45 WBC RBC Hgb 8.4 L Hct 29.1 L MCV MCH MCHC RDW Plt Count MPV Immature Gran % Neutrophils % Lymphocytes % Monocytes % Eosinophils % Basophils % Nucleated RBC % Absolute Neutrophils Absolute Lymphocytes Absolute Monocytes Absolute Eosinophils Absolute Basophils RBC Morphology Hypochromasia Anisocytosis Microcytosis Sodium 144 Potassium 3.5 Chloride 111 H Carbon Dioxide 24.8 Anion Gap 8.2 BUN 5 L Creatinine 0.7 Estimated GFR/1.73 m2 >= 60.00 Glucose 118 H Calcium 8.3 L Magnesium 1.9 Crossmatch See Detail 03/24/21 06:45 WBC 8.67 RBC 3.69 L Hgb 8.2 L Hct 28.4 L MCV 77.0 L MCH 22.2 L MCHC 28.9 L RDW 24.6 H Plt Count 221 MPV Immature Gran % 0.3 Neutrophils % 69.1 Lymphocytes % 22.1 Monocytes % 6.3 Eosinophils % 1.6 Basophils % 0.6 Nucleated RBC % 0 Absolute Neutrophils 5.98 Absolute Lymphocytes 1.92 Absolute Monocytes 0.55 Absolute Eosinophils 0.14 Absolute Basophils 0.05 RBC Morphology See Below Hypochromasia 1+ Anisocytosis 2+ Microcytosis 1+ Sodium Potassium Chloride Carbon Dioxide Anion Gap BUN Creatinine Estimated GFR/1.73 m2 Glucose Calcium Magnesium Crossmatch
--- NOTE | 2021-03-24 12:28 | W.NUTCONSULT ---
Date of service: 03/24/21 Time of Service: 12:28 Nutritional Consult ASSESSMENT: Ms. Sadler presents with abnormal uterine bleeding as well as stroke. Her PO intake is excellent. She is having some random finger sticks that above target. She reports no known history of DM. She is 165 cm and 114 kg. On 02/27/21 at her office visit at [facility] she was 128 kg. Her BMI is 41.8 kg/m2 c/w class 3 severe obesity. Adjusted ideal body weight is 79 kg. Ms. Sadler reports that she has been unaware of her weight loss but that her daughter mentioned to her in the past few weeks that she looked like she was losing weight. Significant weight loss noted of 11% in less than one month. She is on a regular diet. Estimated energy needs are 2100 kcal/day (REE x 1.2) Estimated protein needs are 79g/day (1.0g/kg/day of adjusted ideal body weight) NUTRITIONAL DIAGNOSIS: Unintentional significant weight loss related to reported decrease in PO intake over past several weeks as evidenced by 11% weight loss in three weeks. INTERVENTION: At this time, would just continue with her regular diet. She is eating a well-balanced diet here. Would consider checking an A1C given her elevated blood glucose, obesity and that I do not see any prior record of an A1C. MONITORING AND EVALUATION: Will continue to monitor weight and PO intake as well as blood sugars. Will evaluate nutrition care plan ongoing and adjust as needed. Time Spent in Nutritional Counseling and Treatment: 10 minutes
[2021-03-24 14:14] LABS: HCT 31.3 % (36.0-46.0); HGB 9.1 g/dL (11.2-15.7)
--- NOTE | 2021-03-24 15:03 | W.PM.PROGNOT ---
Date of Service Date of service: 03/24/21 Time of Service: 15:03 Assessment and Plan Assessment and plan (1) Cerebral ischemic stroke due to global hypoperfusion with watershed infarct: Status: Acute Assessment and plan: In setting of critical right carotid artery stenosis (while not explicitely mentioned in CTA read, both Dr Hopkins [place] [facility] [place] a focal stenosis at the bifurcation of the R carotid artery) and acute on chronic anemia, contributing to these watershed area strokes. There is also evidence of a possible small embolic stroke (?atheroembolic). No evidence of Afib on tele. Hypoperfusion due to anemia is a big factor for watershed strokes, and maintaining SBP>140 is imperative. Her H/H has finally stabilized. WIll trial d/c IVF. Discussed with both [facility] and [facility] [place] - the patient is not felt to be a candidate for an acute intervention for her R internal carotid A stenosis. She will need to follow up with vascular surgery for a procedure in 1-2 months. Goals for now are to ensure that the bleeding stops/slows down and H/H remains stable. Neither Dr Lancaster nor Dr Church felt that aspirin would be a good idea at this time. Continue high dose statin. (2) Carotid stenosis, right: Status: Acute Assessment and plan: As above (3) Acute blood loss anemia: Status: Acute Assessment and plan: S/p 5 units pRBCs on this admission. H/H is actually better this afternoon. Bleeding is slowing down. Continue aygestin. Neurology felt that progestin-only agents would be safer as far as risk of stroke than estrogen containing agents. (4) Dysfunctional uterine bleeding: Status: Acute Assessment and plan: As above. Prior endometrial bx negative. [facility] did recommend possibly repeating it, recognizing that it might cause a vasovagal reaction and perhaps now is not the best time. I discussed this with Dr Church, and neither of us feel that this is the right thing to do at this time. She will need outpatient follow up for D&C vs hysterectomy. As far as further maging, CT w/w/o contrast vs MRI would be appropriate, per [employer], but the patient just got CT with IV contrast. Consider MRI vs CT w/w/o contrast as outpatient. Malignancy is a possibility. (5) Tobacco abuse: Status: Acute Assessment and plan: Provide nicotine replacement (6) DVT prophylaxis: Status: Acute Assessment and plan: SCDs and add TEDs given trace edema. Chemical DVT ppx is contraindicated in setting of acute bleeding. (7) Discharge planning issues: Status: Acute Assessment and plan: Full code Anticipate discharge home tomorrow. Per my conversations with both [facility] and [facility], there would be no additional benefit from transfer to a tertiary care facility at this time. Subjective Subjective Interval history since last seen: Ms Hector states her L hand feels a little bit better but that she is not back to normal. 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 Denies dizziness, chest pain, shortness of breath, nausea. She has noticed that her vaginal bleeding has slowed down. Exam Narrative Exam Narrative: General: Pleasant milddle-aged female who looks older than her stated age, A&Ox3, remains mildly clumsy in her LUE, but better, fluent speech HEENT: EOMI, MMM Heart: RRR, no m/r/g Lungs: CTAB Abdomen: soft, nontender, nondistended Extremities: +1 edema BLE's, worse today, able to move all 4 extremities, LUE clumsy as above Objective Last Vital Signs Temp 36.5 C 03/24/21 11:48 Pulse 68 03/24/21 11:48 Resp 19 03/24/21 11:48 BP 143/65 H 03/24/21 11:48 Pulse Ox 97 03/24/21 11:48 Laboratory Results - last 24 hr 03/23/21 03/24/21 03/24/21 15:16 06:45 06:45 WBC 8.67 RBC 3.69 L Hgb 8.4 L 8.2 L Hct 29.1 L 28.4 L MCV 77.0 L MCH 22.2 L MCHC 28.9 L RDW 24.6 H Plt Count 221 MPV Immature Gran % 0.3 Neutrophils % 69.1 Lymphocytes % 22.1 Monocytes % 6.3 Eosinophils % 1.6 Basophils % 0.6 Nucleated RBC % 0 Absolute Neutrophils 5.98 Absolute Lymphocytes 1.92 Absolute Monocytes 0.55 Absolute Eosinophils 0.14 Absolute Basophils 0.05 RBC Morphology See Below Hypochromasia 1+ Anisocytosis 2+ Microcytosis 1+ Sodium 144 Potassium 3.5 Chloride 111 H Carbon Dioxide 24.8 Anion Gap 8.2 BUN 5 L Creatinine 0.7 Estimated GFR/1.73 m2 >= 60.00 Glucose 118 H Calcium 8.3 L Magnesium 1.9 03/24/21 14:10 WBC RBC Hgb 9.1 L Hct 31.3 L MCV MCH MCHC RDW Plt Count MPV Immature Gran % Neutrophils % Lymphocytes % Monocytes % Eosinophils % Basophils % Nucleated RBC % Absolute Neutrophils Absolute Lymphocytes Absolute Monocytes Absolute Eosinophils Absolute Basophils RBC Morphology Hypochromasia Anisocytosis Microcytosis Sodium Potassium Chloride Carbon Dioxide Anion Gap BUN Creatinine Estimated GFR/1.73 m2 Glucose Calcium Magnesium
--- NOTE | 2021-03-24 16:01 | PHA.REVIEW ---
Pharmacy Admission Review - Admission Clinical Review (Last Reviewed 03/22/21 @ 20:17 by Jenny Hopkins MD) Discharge planning issues (Acute) DVT prophylaxis (Acute) Tobacco abuse (Acute) Dysfunctional uterine bleeding (Acute) Cerebral ischemic stroke due to global hypoperfusion with watershed infarct (Acute) Carotid stenosis, right (Acute) Acute blood loss anemia (Acute) CVA (cerebral vascular accident) (Acute) Thickened endometrium (Acute) Postmenopausal bleeding (Acute) No Known Allergies Allergy (Unverified 01/31/21 09:50) Resuscitation Status Full Code Height 5 ft 5 in Weight 114 kg - Renal Dosing Renal Dosing: BUN 5 mg/dL (7-18) L 03/24/21 06:45 Creatinine 0.7 mg/dL (0.55-1.02) 03/24/21 06:45 Medications needing adjustments: Reviewed (Crcl ~111.7 mL/min using adjusted body weight. Current meds okay.) - Anticoagulation Anticoagulation: Hgb 9.1 g/dL (11.2-15.7) L 03/24/21 14:10 Hct 31.3 % (36.0-46.0) L 03/24/21 14:10 Plt Count 221 10^3/uL (130-400) 03/24/21 06:45 Creatinine 0.7 mg/dL (0.55-1.02) 03/24/21 06:45 DVT Prophylaxis: N/A Therapeutic Anticoagulation: N/A (acute blood loss anemia per progress note) - Opiate Usage Evaluate Pain Scale/Pains Meds: N/A - Relevant Labs Sodium 144 mmol/L (136-145) 03/24/21 06:45 Potassium 3.5 mmol/L (3.5-5.1) 03/24/21 06:45 Chloride 111 mmol/L (98-107) H 03/24/21 06:45 Magnesium 1.9 mg/dL (1.8-2.4) 03/24/21 06:45 Electrolytes, C-Reactive P, ESR: Reviewed - DM Control DM Control: Glucose 118 mg/dL (74-106) H 03/24/21 06:45 Insulin Dosing: N/A - Heart Failure/ID Heart Failure/ID: Troponin I < 0.05 ng/mL (<0.06) 03/21/21 20:05 EF%, JULIENNE's, B-Blockers, Diuretics: Reviewed - BP Control BP Control: Blood Pressure 130/77 Blood Pressure 143/65 Blood Pressure 150/80 If elevated: Reviewed (BP has been normal to high most of today and yesterday.) - Qtc Review If Elevated: N/A - IV to PO Switch IV Medications: Reviewed - Home Meds Home Med List reviewed: Reviewed (Only home med listed (medroxyprogesterone) not confirmed, however pt was put on norethindrone this admission.) - Current meds Current Medication Order Review: Intervened (Discontinued DI meds, as they had already been given.) - Comments Comments/Follow Ups: Watch BP, H/H, labs and for med changes.
[2021-03-24] MEDS: Cyanocobalamin 1000 MCG/ML VIAL IM/SC (17:21)
[2021-03-24] MEDS: Atorvastatin 40 MG TAB 80 MG PO (20:04)
[2021-03-24] MEDS: Docusate Sodium 100 MG CAP PO (20:05)
[2021-03-24] MEDS: Acetaminophen 325 MG TAB 650 MG PO (20:06)
[2021-03-25] MEDS: Acetaminophen 325 MG TAB 650 MG PO ×2 (03:39→09:26)
[2021-03-25 03:51] VITALS: BP 173/79; PULSE 73; RESP 14; TEMP 36.4; O2SAT 97
[2021-03-25 07:12] VITALS: PULSE 68
[2021-03-25 08:02] LABS: HCT 27.7 % (36.0-46.0); MCHC 28.9 % (32.0-36.0); MCV 76.3 fL (80-95); RBC 3.63 10^6/uL (3.93-5.22); RDW 25.9 % (11.7-14.6); RDW-SD 68.8 fL; WBC 8.93 10^3/uL (4.4-10.8)
--- NOTE | 2021-03-25 08:09 | DSE_ITS ---
Date of service: 03/25/21 Time of Service: 08:09 DS: Diagnosis Discharge Diagnosis (1) Cerebral ischemic stroke due to global hypoperfusion with watershed infarct: Status: Acute (2) Carotid stenosis, right: Status: Acute (3) Acute blood loss anemia: Status: Acute (4) Dysfunctional uterine bleeding: Status: Acute (5) Tobacco abuse: Status: Acute (6) DVT prophylaxis: Status: Acute (7) Discharge planning issues: Status: Acute Discharge Plan Disposition Patient Disposition: HOME Condition: Critical Discharge Details Reason For Visit: Acute Blood Loss Anemia,CVA, Menorrhagia Admit Date/Time: 03/21/21 19:40 Admit Provider: Jared El Attending Provider: Jared El Primary Care Provider: None,None Hospital Course Hospital Course: Ms. Sadler is a 56 year-old woman with hypertension, smoking, and very little medical care (has no PCP). She began to experience vaginal bleeding at varying intensities in November for which she presented for care in January. Along with this she has has been experiencing cramps. She tells me she has been taking ASA 325mg BID most days for her cramps since onset in November. When we discussed that this can worsen bleeding, she said she was actually taking Midol instead.... Regardless, beginning 03/20/21 evening, she began to experience intermittent left arm numbness, weakness, and clumsiness along with slurred speech. This intensified yesterday such that she presented to the [facility] ER. In the ER BP was 179/120. Found to have Hgb 4.9! She has since been transfused 2U PRBCs and Hgb 6.8/6.4. S/p 2U PRBCs this afternoon with updated Hgb pending. She has been recommended hysteroscopy with dilation and curettage by ObGyn. Stool heme was reportedly positive in the ER, but has been negative on the floor. Overnight, her dysarthria has resolved. She still has some numbness and clumsiness of the left arm, but this has improved. She has undergone work-up as below. She has no known prior history of stroke. She smokes 1ppd. Work-up: -CTH: old R parietal stroke. -MRI brain: multiple acute infarcts throughout the right frontal and parietal lobes in a borderzone/watershed distribution. Old right parietal infarct. Radiology noted a question of laminal necrosis vs petechial hemorrhage in the high right parietal lobe. -MRA head/neck: critical stenosis vs occlusion of the right ICA. Diffuse atherosclerosis throughout MRA head. -LDL: 102 [place] [facility] [place] [facility]. Membership Assistant and Neurology consulted. She was transfused 4 units of RBCs and her HGB on day of discharge was 8. For her DUB, it was noted that a prior endometrial bx was negative. Norethindrone acetate 10mg BID initiated. She will f/u with AIR CONDITIONING MANAGER service, needing a surgical exploration via hysteroscopy to eval the endometrial lining and possible removal of polyp if present; this will need to be performed in a tertiary care center d/t her neurologic findings. Atorvastatin 80mg po initiated to assist in stabilizing carotid plaque. No ASA or plavix d/t the dysfunctional uterine bleeding. Maintaining good perfusion to the brain is critical; adequate hydration encourage and monitoring of hgb with further transfusions if necessary. Patient very insistent on discharging rather than waiting for further monitoring of her hgb. A lab slip for a CBC given; to be drawn on Saturday03/27/21. [place]ts to [place] [facility] [place]. Home Meds and New Rx's Prescriptions: New Nicotrol 10 mg Cartridge 0 cartridge inhalation Q2H PRN PRNQty: 0 RF: 0 ascorbic acid (vitamin C) [Vitamin C] 500 mg Tablet 250 mg PO BID Qty: 0 RF: 0 ferrous sulfate 325 mg (65 mg iron) Tablet 325 mg PO DAILY Qty: 0 RF: 0 norethindrone acetate 5 mg Tablet 10 mg PO BID Qty: 60 RF: 0 atorvastatin [Lipitor] 80 mg tablet 80 mg PO DAILY Qty: 30 RF: 0 Discontinued medroxyprogesterone [Provera] 5 mg tablet 5 mg PO BID Qty: 60 RF: 1 Discharge Instructions Instructions: Menorrhagia (ED) Stand Alone Forms: Nursing Discharge Form Referrals: Pk Trevizo MD [ [facility] STAFF PHYSICIAN] - 04/04/21 10:45 am Activity:: Activity as Tolerated Equipment/Supplies:: No Equipment Needed Diet:: Heart Healthy Discharge Orders Discharge Orders: Discharge Order (Routine); Ordered 03/25/21 Ordered By: Nikos Massey Other Ambulatory Orders: Complete Blood Count w/Diff (Routine) Timeframe: 3 Days Location: None Selected Ordered By: Nikos Massey Discharge Data Discharge Date/Time-TO BE ENTERED AT DEPARTURE: 03/25/21 11:02 DS: Summary Time Spent with Patient providing and/or coordinating discharge services: Greater than 30 minutes Status at Discharge Functional status at discharge: independent ambulation Overall status at discharge: patient is back to baseline Mental Status: mental status grossly normal Speech and Movement: speech and movement normal Mood: congruent mood Affect: normal affect Exam Narrative Exam Narrative: General: Pleasant milddle-aged female who looks older than her stated age, A&Ox3, remains mildly clumsy in her LUE, but better, fluent speech HEENT: EOMI, MMM Heart: RRR, no m/r/g Lungs: CTAB Abdomen: soft, nontender, nondistended Extremities: +1 edema BLE's, worse today, able to move all 4 extremities, LUE clumsy as above Const General: cooperative and no acute distress HENMT Head: normocephalic and atraumatic Eyes Sclera: sclerae normal Cardio Rate: regular rate Rhythm: regular rhythm Heart Sounds: S1 normal and S2 normal GI Palpation: soft and nontender Neuro General: moves all extremities Cognition: normal cognition Speech: speech normal Extrem General: no calf tenderness and edema Laterality: bilateral (tr) Psych Mental Status: mental status grossly normal Speech and Movement: speech and movement normal Mood: congruent mood Affect: normal affect DS: Data Vitals/I&O Vitals and I&O: Vital Signs Temperature 36.4 C L 03/25/21 03:51 Temperature Source Tympanic 03/25/21 03:51 Pulse 73 03/25/21 03:51 Pulse Rhythm Regular 03/25/21 01:07 Pulse 82 03/21/21 21:11 Respiratory Rate 14 03/25/21 03:51 Respiratory Effort Non-Labored 03/25/21 01:07 Respiratory Depth Normal 03/25/21 01:07 Respiratory Pattern Normal 03/25/21 01:07 Blood Pressure 173/79 H 03/25/21 03:51 Blood Pressure Mean 92 03/21/21 21:10 Pulse Oximetry 97 03/25/21 03:51 Oxygen Delivery Method Room Air 03/25/21 03:51 Oxygen Flow Rate 0 03/25/21 03:51 Pain Level 5 03/25/21 03:51 Comment 03/23/21 16:26 Intake & Output 03/24/21 03/24/21 03/25/21 11:59 23:59 11:59 Intake Total 2017.5 / 3497.5 1480 / 3497.5 Output Total 900 / 900 Balance 1117.5 / 2597.5 1480 / 2597.5 Weight 114 kg Intake: IV 1527.5 / 2527.5 1000 / 2527.5 Oral 490 / 970 480 / 970 Output: Urine 900 / 900 Other: Urine Color Ceiba Urine Appearance Clear Clear Clear Urine Odor Normal Comment Patient reports urination in toilet. Voiding Methods Toilet Toilet Data Completed and Pending Labs on day of discharge: Labs from last 24 hours 03/25/21 03/25/21 03/24/21 07:03 07:03 14:10 WBC Pending RBC Pending Hgb Pending 9.1 L Hct Pending 31.3 L MCV Pending MCH Pending MCHC Pending RDW Pending Plt Count Pending MPV Pending Immature Gran % Neutrophils % Lymphocytes % Monocytes % Eosinophils % Basophils % Nucleated RBC % Absolute Neutrophils Absolute Lymphocytes Absolute Monocytes Absolute Eosinophils Absolute Basophils RBC Morphology Hypochromasia Anisocytosis Microcytosis Sodium Pending Potassium Pending Chloride Pending Carbon Dioxide Pending Anion Gap Pending BUN Pending Creatinine Pending Estimated GFR/1.73 m2 Pending Glucose Pending Calcium Pending Magnesium Pending 03/24/21 03/24/21 06:45 06:45 WBC 8.67 RBC 3.69 L Hgb 8.2 L Hct 28.4 L MCV 77.0 L MCH 22.2 L MCHC 28.9 L RDW 24.6 H Plt Count 221 MPV Immature Gran % 0.3 Neutrophils % 69.1 Lymphocytes % 22.1 Monocytes % 6.3 Eosinophils % 1.6 Basophils % 0.6 Nucleated RBC % 0 Absolute Neutrophils 5.98 Absolute Lymphocytes 1.92 Absolute Monocytes 0.55 Absolute Eosinophils 0.14 Absolute Basophils 0.05 RBC Morphology See Below Hypochromasia 1+ Anisocytosis 2+ Microcytosis 1+ Sodium 144 Potassium 3.5 Chloride 111 H Carbon Dioxide 24.8 Anion Gap 8.2 BUN 5 L Creatinine 0.7 Estimated GFR/1.73 m2 >= 60.00 Glucose 118 H Calcium 8.3 L Magnesium 1.9 PFSH Medical History Asthma Obesity Postmenopausal bleeding Thickened endometrium Social History Smoking/Tobacco Use Status: Current every day Tobacco Type: cigarettes Tobacco: How many years used: 30 Quit status: not considering quitting Counseling given: provider counseling Smoking risk assessment performed?: Yes Alcohol Intake: current Alcohol Intake frequency: a few times a week Drug use: Never Substance use type: does not use current occupation: Works at [employer] in [place] Do you feel safe at home: Yes Do you feel safe in your relationship?: Yes Female Reproductive History Menstrual Age of Menarche: 11 control method: none Menopause type: natural Date of menopause: 07/01/17 History History 2 Para 2 Hx # Term Pregnancies Multiple births Hx # Pregnancies Ectopic pregnancies AB induced Hx Number of Living Children 2 AB spontaneous
[2021-03-25 08:11] LABS: Anion Gap 9.3 mmol/L (3-11); BUN 4 mg/dL (7-18); CO2 23.7 mmol/L (21.0-32.0); CREATININE 0.7 mg/dL (0.55-1.02); Calcium 8.5 mg/dL (8.5-10.1); Chloride 110 mmol/L (98-107); Glucose 133 mg/dL (74-106); Potassium 3.9 mmol/L (3.5-5.1); Sodium 143 mmol/L (136-145)
[2021-03-25 08:40] LABS: Platelet Count 248 10^3/uL (130-400)
[2021-03-25] MEDS: Ascorbic Acid 500 MG TAB 250 MG PO (09:25)
[2021-03-25] MEDS: Cyanocobalamin 500 MCG TAB 1000 MCG PO (09:26)
[2021-03-25] MEDS: Norethindrone 5 MG TAB 10 MG PO (09:27)
[2021-03-25] MEDS: Ferrous Sulfate 325 MG TAB PO (09:27)
[2021-03-25 09:32] VITALS: BP 111/65; PULSE 84; RESP 16; TEMP 37; O2SAT 96
--- NOTE | 2021-03-25 12:46 | PT.INTREAT ---
Date of service: 03/25/21 Time of Service: 08:45 PT Notes Visit Reasons: Acute Blood Loss Anemia,CVA, Menorrhagia Inpatient Physical Therapy Treatment Note [facility] Date: 03/25/2021 PRECAUTIONS: Fall and standard SUBJECTIVE: Hoping to get discharged today. Still struggling with function of her left hand. OBJECTIVE: PAIN: Tingling in left upper extremity. BED MOBILITY/TRANSFERS Sitting up on edge of bed when I arrived to room today. Sit-stand: I Stand-sit: I GAIT Assistive Device: no AD Weight bearing: Full Assist: SBA Distance: 350ft THEREX: Worked on use of left UE while in standing position, performing sorting of cones and assembling/disassembling cones for 5 minutes and writing alphabet, numbers and name several times. We discussed activities such as puzzles, word search, writing letters or preparing simple and safe meals with left UE to continue focusing on hand dexterity and coordination. STAIRS: Able to ambulate up / down 12 4 inch and 8 6 inch steps with handrails and SBA only, utilizing normal reciprocal gait pattern. ASSESSMENT: Tolerated ambulation on flat surfaces and stairs well. Gives very good effort with left UE tasks, but does have to focus on what she is doing and palpation of objects she is working with. PLAN: To be discharged from Inpatient PT services per DC from hospital. TREATMENT CODE/TIME: [id number], 30 minutes, 8:45 to 9:15 am
--- NOTE | 2021-03-25 14:09 | PDOC.CMDIS ---
- If Service Date Differs Date of service: 03/25/21 Time of Service: 14:09 LACE Index Scoring Tool - Questions: Length of Stay (in days): 4 - 6 Acuity (Admit via E.D.?): Yes E.D. Visits: 2 - Answers: Total Score: 9 Risk of Readmission: Low Risk Care Management Discharge Reason for Hospitalization: Acute blood loss anemia, CVA, Menorrhagia Discharge Plan: Discharge home via private vehicle with friend. Follow up with [facility] in 1-2 weeks and establish care with a PCP. Patient/Family Education Needs: Review discharge instructions and plan to follow up with outpatient providers, ask me three.
--- NOTE | 2021-03-27 08:03 | OTDS_ITS ---
Date of service: 03/27/21 Time of Service: 08:03 Occupational Therapy Notes Occupational Therapy Inpatient Discharge Summary Date: 03/27/21 Dates of Service: 03/22/21-03/23/21 Referring Doctor:Jared El MD OT Orders: Non- Urgent Precautions: Fall, standard, Full *This document serves as a summary of care, no skilled OT services provided for this documentation* PATIENT PROFILE/ADMITTING DIAGNOSIS: Pt is 56 year old female who has been in the ED multiple times in a short period of time. She was admitted for acute blood loss, anemia, CVA, thickened endometirum, post menopausal bleeding, abnormal vaginal bleeding. Past Medical History: Medical History Asthma Obesity Postmenopausal bleeding Thickened endometrium Social History/Home Situation: Pt states that she is a single female that lives alone locally in [facility]. She has a couple stairs to enter her home and notes that she drives (I). She states that she is (I) at her baseline level of function. She has a walk in shower and notes that she has a shower seat. She does not have any pets. She has two children and daughter and son. She states that she is close with her daughter but not as close with her son due to a conflict with his significant other. Equipment owned/DME: grab bars, shower seat SUBJECTIVE: NT OBJECTIVE: ROM: RUE AROM WFL L UE AROM WFL STRENGTH: RUE 4+/5 throughout LUE 4+/5 throughout FUNCTIONAL MOBILITY/ADLS: OT assessed pts functional (I) in her ADL routines with assessment of her ROM which is WFL. She has ROM in order to perform her dressing and bathing. She is able to cross midline and reach without (A). Overall pt has ROM required for (I) and she is receptive to performance of her ADLs. Pt denied the need for adaptive equipment at the time. BALANCE: Static sitting Normal Dynamic Sitting Normal ASSESSMENT: Patient is a 56-year-old female referred to occupational therapy services with diagnosis of acute blood loss, anemia, CVA, thickened endometirum. Pt was seen for initial evaluation and discharged home when medically cleared per MD. GOALS 1. Transfers (I) 2. Dressing sitting in chair (I) 3. Bathing- standing at sink (I) 4. Toileting on toilet (I) 5. Eating (I) PLAN OF CARE/TREATMENT PLAN: Discharge from skilled OT services. DISCHARGE RECOMMENDATIONS Home when medically cleared per MD. TREATMENT TIME/MINUTES/CODES N/A Candie Christiansen OTR/L [facility] [place]
--- NOTE | 2021-03-29 14:49 | PT.INDS ---
Date of service: 03/29/21 Time of Service: 14:49 PT Notes Visit Reasons: Acute Blood Loss Anemia,CVA, Menorrhagia Physical Therapy Inpatient Discharge Summary Date: 03/29/21 Dates of Service: 03/23/2021 through 03/25/2021 This is a clinical summary of care provided for the duration of dates listed above. No charge was made in the completion of this documentation. Referring Doctor: Jared El PT Orders: PT CONSULT: Limited ability Precautions: Standard Patient Profile/Admitting Diagnosis: 56-year-old lady with menorrhagia over the last month and worsening recently, presenting with anemia and left neurological deficits and positive right CVA which is subacute by CT. She is S/P blood transfusion. PMHX: Medical History Asthma Obesity Postmenopausal bleeding Thickened endometrium Social History/Home Situation: Lives alone in a one story home, one step to enter. Works FT at [employer]. She has a daughter that lives nearby that is supportive. She drives, and functional independently at baseline. Current Functional Limitations: CG with stair navigation, and supervision with ambulation due to slight L neglect. Lacking coordination L UE Equipment Owned/DME: None Subjective: NT. See most recent SPACE CONTROL AGENT notes. Objective: General Observation: NT. See most recent SPACE CONTROL AGENT notes. Mental Status: NT. See most recent SPACE CONTROL AGENT notes. Pain: NT. See most recent SPACE CONTROL AGENT notes. Vital Signs: NT. See most recent SPACE CONTROL AGENT notes. ROM: Right Upper Extremity: Grossly WNL Left Upper Extremity: Active flex 80 deg, abd 70. Passive flex 120 deg, abd 90 deg, ER 45 deg, IR 60 deg. Right Lower Extremity: Grossly WNL Left Lower Extremity: Grossly WNL Strength: Right Upper Extremity: Grossly 5/5 Left Upper Extremity: Grossly 3-/5 Right Lower Extremity: Grossly 5/5 Left Lower Extremity: Grossly 5/5 Sensation: Intact to light touch, but notes L feels different, is able to locate pressure and light touch through L extremities. Bed Mobility/Transfers: Sit to stand independent Stand to sit independent Bed mobility independent Gait: Supervision for up to 350 feet using no AD. Mild path d eviation but no LOB. Balance: Static Sitting: Normal Dynamic Sitting: Normal Static Standing: Good Dynamic Standing: Fair Assessment: Patient is a 56 year old female referred to physical therapy services with the diagnosis of R CVA with L neurological deficits in the setting of anemia with complications from menorrhagia. Persistent motor execution and coordination issues seen in the L UE which may benefit from OP PT/OT to increase soriano dexterity and coordination. Goals: Goals X1 week 1. Supine-Sit I MET 2. Sit-Supine I MET 3. Sit-Stand I MET 4. Stand-Sit I MET 5. Bed-Chair I MET 6. Chair-Bed I MET MET 7. Gait 500 ft, independently, no L neglect NOT MET 8. Stairs 1, independently, with rail NOT MET 9. Independent with home exercise program NOT MET 10. Balance 10 sec independent with stage 4 balance test NOT MET DISCHARGE RECOMMENDATIONS: Home with outpatient PT if she continues to demonstrate balance deficits. Outpatient OT for coordination and functional use of L UE. TREATMENT CODE/TIME: MATT Thank you for the opportunity to participate in the care of this patient. Sharon Palacios PT, DPT, CLT [facility] [place], [place]
== END 2021-03-25 11:02 | disposition home or self-care (01) | DRG 811 ==
LOC: ER 19:58 → MS 21:06
PROVIDERS: Internal Medicine; Admitting Provider Family Medicine; Emergency Provider Emergency Medicine; Visit Provider Family Medicine
DX: D62 Acute posthemorrhagic anemia (principal); I63.521 Cerebral infarction due to unspecified occlusion or stenosis of right anterior cerebral artery; G81.94 Hemiplegia, unspecified affecting left nondominant side; Z68.41 Body mass index [BMI] 40.0-44.9, adult; N95.0 Postmenopausal bleeding; E11.9 Type 2 diabetes mellitus without complications; I10 Essential (primary) hypertension; J45.909 Unspecified asthma, uncomplicated; E66.9 Obesity, unspecified; F17.210 Nicotine dependence, cigarettes, uncomplicated; I65.21 Occlusion and stenosis of right carotid artery; R47.1 Dysarthria and anarthria; I67.2 Cerebral atherosclerosis
CPT/HCPCS: 36415; 36416; 70496; 70498; 70544; 70547; 80048; 80053; 80061; 82962; 85027; 86850; 86900; 86901; 86920; 87635; 97162; 97165; 97530; 99285; 70450; 70551; 71046; 81003; 81015; 82607; 83735; 84443; 84484; 85014; 85018; 85025; 87086; 93306; 99223; 99232; 99233; 99239; J3420; J3490; P9016

== ENCOUNTER 2021-03-28 04:38 | Outpatient (CLI) | payer OTHER, SELFPAY ==
[2021-03-28 10:36] LABS: Abs Immature Grans 0.03 10^3/uL (0.0-0.06); Absolute Basophil Count 0.05 10^3/uL (0.0-0.2); Absolute Eosinophil Count 0.15 10^3/uL (0.0-0.7); Absolute Lymphocyte Count 2.37 10^3/uL (1.2-3.4); Absolute Monocyte Count 0.51 10^3/uL (0.1-0.8); Absolute Neutrophil Count 5.63 10^3/uL (1.2-6.7); Basophils % 0.6; Eosinophils % 1.7; HCT 33.6 % (36.0-46.0); HGB 9.7 g/dL (11.2-15.7); Immature Grans % 0.3; Lymphocytes % 27.1; MCH 22.7 pg (27.0-33.0); MCHC 28.9 % (32.0-36.0); MCV 78.5 fL (80-95); Monocytes % 5.8; Neutrophils % 64.5; Nucleated RBC 0 %; Platelet Count 301 10^3/uL (130-400); RBC 4.28 10^6/uL (3.93-5.22); RDW 27.7 % (11.7-14.6); WBC 8.74 10^3/uL (4.4-10.8)
[2021-03-28 11:09] LABS: Diff Comment Diff Reviewed
[2021-03-28 11:10] LABS: Anisocytosis 2+; Hypochromasia 2+; Microcytosis 2+; Ovalocytes 2+
== END 2021-03-28 04:39 | disposition home or self-care (01) ==
LOC: LBO 04:38
PROVIDERS: Visit Provider Family Medicine
DX: D62 Acute posthemorrhagic anemia (principal); N93.8 Other specified abnormal uterine and vaginal bleeding
CPT/HCPCS: 36415; 85025

== ENCOUNTER 2021-04-04 15:04 | Outpatient (REF) | payer OTHER, SELFPAY ==
[2021-04-04 21:29] LABS: HCT 37.2 % (36.0-46.0); HGB 10.8 g/dL (11.2-15.7); MCH 23.1 pg (27.0-33.0); MCV 79.5 fL (80-95); RBC 4.68 10^6/uL (3.93-5.22); RDW-SD 78.7 fL; WBC 9.05 10^3/uL (4.4-10.8)
[2021-04-04 21:57] LABS: Iron 43 ug/dL (50-170); Total Iron Binding Capacity 447 ug/dL (250-450); Transferrin Sat 10 % (15-50)
[2021-04-04 22:00] LABS: Platelet Count 308 10^3/uL (130-400)
[2021-04-04 22:23] LABS: Ferritin 21 ng/mL (8-252)
== END 2021-04-04 15:05 | disposition home or self-care (01) ==
LOC: NCHCN 15:04
PROVIDERS: Visit Provider Family Medicine
DX: N93.8 Other specified abnormal uterine and vaginal bleeding (principal); D62 Acute posthemorrhagic anemia; I67.82 Cerebral ischemia
CPT/HCPCS: 85027; 82728; 83540; 83550

== ENCOUNTER 2021-08-02 15:08 | Outpatient (REF) | payer BC, SELFPAY ==
[2021-08-02 21:01] LABS: HCT 38.6 % (36.0-46.0); HGB 12.3 g/dL (11.2-15.7); MCH 29.1 pg (27.0-33.0); MCHC 31.9 % (32.0-36.0); MCV 91.5 fL (80-95); Platelet Count 388 10^3/uL (130-400); RBC 4.22 10^6/uL (3.93-5.22); RDW-SD 50.2 fL; WBC 11.73 10^3/uL (4.4-10.8)
[2021-08-02 21:26] LABS: Ferritin 25 ng/mL (8-252)
[2021-08-04 10:43] LABS: HIV-1/2 Ag & Ab Screen Negative (Negative)
[2021-08-04 11:27] LABS: Hepatitis C Ab w Rflx HCV PCR Negative (Negative)
== END 2021-08-02 15:09 | disposition home or self-care (01) ==
LOC: NCHCN 15:08
PROVIDERS: Visit Provider Family Medicine
DX: D62 Acute posthemorrhagic anemia (principal); Z11.4 Encounter for screening for human immunodeficiency virus [HIV]; Z11.59 Encounter for screening for other viral diseases
CPT/HCPCS: 85027; 86803; 87389; 82728

== ENCOUNTER 2021-08-28 02:11 | Outpatient (CLI) | payer BC, SELFPAY ==
[2021-08-28 10:40] LABS: Source Nasal/Nares
[2021-08-28 16:21] LABS: COVID-19 PCR Negative (Negative)
== END 2021-08-28 02:12 | disposition home or self-care (01) ==
LOC: LBO 02:11
PROVIDERS: Visit Provider Surgery Vascular Surgery
DX: Z20.822 Contact with and (suspected) exposure to COVID-19 (principal); Z01.818 Encounter for other preprocedural examination
CPT/HCPCS: 87635

== ENCOUNTER 2021-09-12 01:20 | Outpatient (CLI) | payer BC, SELFPAY ==
[2021-09-12 11:53] LABS: Source Nasal/Nares
[2021-09-12 14:42] LABS: COVID-19 PCR Negative (Negative)
== END 2021-09-12 01:21 | disposition home or self-care (01) ==
LOC: LBO 01:20
PROVIDERS: Visit Provider Surgery Vascular Surgery
DX: Z20.822 Contact with and (suspected) exposure to COVID-19 (principal); Z01.818 Encounter for other preprocedural examination
CPT/HCPCS: 87635

== ENCOUNTER 2021-11-29 19:54 | Outpatient (CLI) | payer MEDICAID, SELFPAY ==
[2021-11-29 14:55] LABS: Abs Immature Grans 0.04 10^3/uL (0.0-0.06); Absolute Basophil Count 0.06 10^3/uL (0.0-0.2); Absolute Eosinophil Count 0.12 10^3/uL (0.0-0.7); Absolute Neutrophil Count 7.05 10^3/uL (1.2-6.7); Basophils % 0.6; Eosinophils % 1.2; HCT 31.7 % (36.0-46.0); HGB 9.7 g/dL (11.2-15.7); Immature Grans % 0.4; Lymphocytes % 25.1; MCH 25.1 pg (27.0-33.0); MCHC 30.6 % (32.0-36.0); MCV 82 fL (80-95); Monocytes % 4.8; Neutrophils % 67.9; Platelet Count 319 10^3/uL (130-400); RBC 3.86 10^6/uL (3.93-5.22); RDW 15.4 % (11.7-14.6); RDW-SD 46.7 fL; WBC 10.37 10^3/uL (4.4-10.8)
[2021-11-29 15:59] LABS: ALT 31 U/L (14-59); AST 17 U/L (15-37); Albumin 3.5 g/dL (3.4-5.0); Alkaline Phosphatase 68 U/L (46-116); Anion Gap 9.1 mmol/L (3-11); BUN 12 mg/dL (7-18); Bilirubin, Total 0.2 mg/dL (0.2-1.0); CO2 27.9 mmol/L (21.0-32.0); CREATININE 0.8 mg/dL (0.55-1.02); Chloride 105 mmol/L (98-107); Glucose 166 mg/dL (74-106); Potassium 3.9 mmol/L (3.5-5.1); Sodium 142 mmol/L (136-145); Total Protein 6.7 g/dL (6.4-8.2)
[2021-11-29 17:59] LABS: Hemoglobin A1C 7.5 % (<5.7)
== END 2021-11-29 19:55 | disposition home or self-care (01) ==
LOC: LBO 19:54
PROVIDERS: Visit Provider Nurse Practitioner Family
DX: C54.1 Malignant neoplasm of endometrium (principal); D64.9 Anemia, unspecified; E11.9 Type 2 diabetes mellitus without complications
CPT/HCPCS: 36415; 80053; 83036; 85025

== ENCOUNTER 2022-01-11 02:41 | Outpatient (CLI) | payer MEDICAID, SELFPAY ==
[2022-01-11 09:56] LABS: Abs Immature Grans 0.01 10^3/uL (0.0-0.06); Absolute Basophil Count 0.02 10^3/uL (0.0-0.2); Absolute Eosinophil Count 0.02 10^3/uL (0.0-0.7); Absolute Lymphocyte Count 2.12 10^3/uL (1.2-3.4); Absolute Monocyte Count 0.43 10^3/uL (0.1-0.8); Absolute Neutrophil Count 2.84 10^3/uL (1.2-6.7); Basophils % 0.4; Eosinophils % 0.4; HCT 32.9 % (36.0-46.0); HGB 9.8 g/dL (11.2-15.7); Immature Grans % 0.2; MCH 24.3 pg (27.0-33.0); MCHC 29.8 % (32.0-36.0); MCV 81 fL (80-95); MPV 11.4 fL (8.0-11.0); Monocytes % 7.9; Neutrophils % 52.1; Platelet Count 124 10^3/uL (130-400); RBC 4.04 10^6/uL (3.93-5.22); RDW 20.6 % (11.7-14.6); RDW-SD 58.4 fL; WBC 5.44 10^3/uL (4.4-10.8)
[2022-01-11 10:19] LABS: Hemoglobin A1C 7.9 % (<5.7)
[2022-01-11 10:24] LABS: Anisocytosis 2+; Diff Comment RBC Morph Reviewed
[2022-01-11 10:44] LABS: ALT 30 U/L (14-59); AST 18 U/L (15-37); Albumin 3.4 g/dL (3.4-5.0); Alkaline Phosphatase 67 U/L (46-116); Anion Gap 8.5 mmol/L (3-11); BUN 12 mg/dL (7-18); Bilirubin, Total 0.1 mg/dL (0.2-1.0); CO2 28.5 mmol/L (21.0-32.0); CREATININE 0.7 mg/dL (0.55-1.02); Calcium 9.1 mg/dL (8.5-10.1); Chloride 104 mmol/L (98-107); Glucose 96 mg/dL (74-106); Potassium 4.1 mmol/L (3.5-5.1); Sodium 141 mmol/L (136-145); Total Protein 7.1 g/dL (6.4-8.2)
== END 2022-01-11 02:42 | disposition home or self-care (01) ==
LOC: LBO 02:42
PROVIDERS: Nurse Practitioner Family; Visit Provider Obstetrics & Gynecology Gynecologic Oncology
DX: E11.40 Type 2 diabetes mellitus with diabetic neuropathy, unspecified (principal); C54.1 Malignant neoplasm of endometrium
CPT/HCPCS: 36415; 80053; 83036; 85025

== ENCOUNTER 2022-01-31 09:14 | Outpatient (CLI) | payer MEDICAID, SELFPAY ==
[2022-01-31 09:23] LABS: Abs Immature Grans 0.01 10^3/uL (0.0-0.06); Absolute Basophil Count 0.02 10^3/uL (0.0-0.2); Absolute Eosinophil Count 0.01 10^3/uL (0.0-0.7); Absolute Lymphocyte Count 1.86 10^3/uL (1.2-3.4); Absolute Monocyte Count 0.42 10^3/uL (0.1-0.8); Absolute Neutrophil Count 1.69 10^3/uL (1.2-6.7); Basophils % 0.5; Eosinophils % 0.2; HCT 32.8 % (36.0-46.0); HGB 10.1 g/dL (11.2-15.7); Immature Grans % 0.2; Lymphocytes % 46.4; MCH 25.3 pg (27.0-33.0); MCHC 30.8 % (32.0-36.0); MCV 82 fL (80-95); Monocytes % 10.5; Neutrophils % 42.2; RBC 3.99 10^6/uL (3.93-5.22); RDW 24.4 % (11.7-14.6); RDW-SD 69.1 fL; WBC 4.01 10^3/uL (4.4-10.8)
[2022-01-31 09:33] LABS: ALT 25 U/L (14-59); AST 17 U/L (15-37); Albumin 3.3 g/dL (3.4-5.0); Alkaline Phosphatase 67 U/L (46-116); Anion Gap 8.7 mmol/L (3-11); BUN 9 mg/dL (7-18); Bilirubin, Total 0.2 mg/dL (0.2-1.0); CO2 25.3 mmol/L (21.0-32.0); CREATININE 0.7 mg/dL (0.55-1.02); Chloride 105 mmol/L (98-107); Glucose 106 mg/dL (74-106); Potassium 3.9 mmol/L (3.5-5.1); Sodium 139 mmol/L (136-145); Total Protein 7.2 g/dL (6.4-8.2)
[2022-01-31 10:09] LABS: Anisocytosis 3+; Diff Comment RBC Morph Reviewed; Platelet Count 113 10^3/uL (130-400); Polychromasia Present
[2022-01-31 10:10] LABS: Hypochromasia 1+
== END 2022-01-31 09:15 | disposition home or self-care (01) ==
LOC: LBO 09:27
PROVIDERS: Visit Provider Obstetrics & Gynecology Gynecologic Oncology
DX: C54.1 Malignant neoplasm of endometrium (principal)
CPT/HCPCS: 36415; 80053; 85025

== ENCOUNTER 2022-02-21 02:40 | Outpatient (CLI) | payer MEDICAID, SELFPAY ==
[2022-02-21 08:48] LABS: Abs Immature Grans 0.02 10^3/uL (0.0-0.06); Absolute Basophil Count 0.01 10^3/uL (0.0-0.2); Absolute Eosinophil Count 0.01 10^3/uL (0.0-0.7); Absolute Lymphocyte Count 1.88 10^3/uL (1.2-3.4); Absolute Monocyte Count 0.58 10^3/uL (0.1-0.8); Absolute Neutrophil Count 1.76 10^3/uL (1.2-6.7); Basophils % 0.2; Eosinophils % 0.2; HCT 29.3 % (36.0-46.0); HGB 9.4 g/dL (11.2-15.7); Immature Grans % 0.5; Lymphocytes % 44.1; MCH 27.1 pg (27.0-33.0); MCHC 32.1 % (32.0-36.0); MCV 84 fL (80-95); Monocytes % 13.6; Neutrophils % 41.4; Nucleated RBC 0.7 % (0.0-0.3); RBC 3.47 10^6/uL (3.93-5.22); RDW 28.1 % (11.7-14.6); WBC 4.26 10^3/uL (4.4-10.8)
[2022-02-21 09:07] LABS: Platelet Count 77 10^3/uL (130-400)
[2022-02-21 09:08] LABS: Anisocytosis 1+; Hypochromasia 1+
[2022-02-21 09:14] LABS: ALT 22 U/L (14-59); AST 13 U/L (15-37); Albumin 3.2 g/dL (3.4-5.0); Alkaline Phosphatase 66 U/L (46-116); Anion Gap 8.6 mmol/L (3-11); BUN 10 mg/dL (7-18); Bilirubin, Total 0.2 mg/dL (0.2-1.0); CO2 27.4 mmol/L (21.0-32.0); CREATININE 0.8 mg/dL (0.55-1.02); Calcium 8.9 mg/dL (8.5-10.1); Chloride 106 mmol/L (98-107); Glucose 105 mg/dL (74-106); Potassium 4.2 mmol/L (3.5-5.1); Sodium 142 mmol/L (136-145); Total Protein 6.9 g/dL (6.4-8.2)
== END 2022-02-21 02:41 | disposition home or self-care (01) ==
PROVIDERS: Visit Provider Nurse Practitioner Family
DX: C54.1 Malignant neoplasm of endometrium (principal); R79.89 Other specified abnormal findings of blood chemistry
CPT/HCPCS: 36415; 80053; 85025

== ENCOUNTER 2022-03-14 01:47 | Outpatient (CLI) | payer MEDICAID, SELFPAY ==
[2022-03-14 09:54] LABS: Abs Immature Grans 0.01 10^3/uL (0.0-0.06); Absolute Basophil Count 0.01 10^3/uL (0.0-0.2); Absolute Eosinophil Count 0.01 10^3/uL (0.0-0.7); Absolute Lymphocyte Count 1.87 10^3/uL (1.2-3.4); Absolute Monocyte Count 0.37 10^3/uL (0.1-0.8); Absolute Neutrophil Count 1.36 10^3/uL (1.2-6.7); Basophils % 0.3; Eosinophils % 0.3; HCT 26.4 % (36.0-46.0); HGB 8.7 g/dL (11.2-15.7); Immature Grans % 0.3; Lymphocytes % 51.5; MCH 29.8 pg (27.0-33.0); MCV 90 fL (80-95); Monocytes % 10.2; Neutrophils % 37.4; Nucleated RBC 0.6 % (0.0-0.3); Platelet Count 74 10^3/uL (130-400); RBC 2.92 10^6/uL (3.93-5.22); RDW 28.1 % (11.7-14.6); RDW-SD 90.5 fL; WBC 3.63 10^3/uL (4.4-10.8)
[2022-03-14 10:25] LABS: ALT 20 U/L (14-59); AST 12 U/L (15-37); Albumin 3.3 g/dL (3.4-5.0); Alkaline Phosphatase 64 U/L (46-116); Anion Gap 8.2 mmol/L (3-11); BUN 17 mg/dL (7-18); Bilirubin, Total 0.2 mg/dL (0.2-1.0); CO2 25.8 mmol/L (21.0-32.0); CREATININE 0.9 mg/dL (0.55-1.02); Calcium 8.5 mg/dL (8.5-10.1); Chloride 106 mmol/L (98-107); Glucose 129 mg/dL (74-106); Potassium 3.9 mmol/L (3.5-5.1); Sodium 140 mmol/L (136-145)
[2022-03-14 10:42] LABS: Anisocytosis 2+; Diff Comment RBC Morph Reviewed
== END 2022-03-14 01:48 | disposition home or self-care (01) ==
LOC: LBO 01:47
PROVIDERS: Nurse Practitioner Family; Visit Provider Obstetrics & Gynecology Gynecologic Oncology
DX: C54.1 Malignant neoplasm of endometrium (principal); D62 Acute posthemorrhagic anemia
CPT/HCPCS: 36415; 80053; 85025

== ENCOUNTER 2022-05-23 15:04 | Outpatient (REF) | payer MEDICAID, SELFPAY ==
[2022-05-23 17:36] LABS: Abs Immature Grans 0.02 10^3/uL (0.0-0.06); Absolute Basophil Count 0.03 10^3/uL (0.0-0.2); Absolute Eosinophil Count 0.03 10^3/uL (0.0-0.7); Absolute Lymphocyte Count 2.15 10^3/uL (1.2-3.4); Absolute Monocyte Count 0.36 10^3/uL (0.1-0.8); Absolute Neutrophil Count 3.85 10^3/uL (1.2-6.7); Basophils % 0.5; Eosinophils % 0.5; HGB 10.1 g/dL (11.2-15.7); Immature Grans % 0.3; Lymphocytes % 33.4; MCH 33.9 pg (27.0-33.0); MCHC 32.6 % (32.0-36.0); MCV 104 fL (80-95); MPV 12.2 fL (8.0-11.0); Monocytes % 5.6; Neutrophils % 59.7; Platelet Count 154 10^3/uL (130-400); RBC 2.98 10^6/uL (3.93-5.22); RDW-SD 57.1 fL; WBC 6.44 10^3/uL (4.4-10.8)
[2022-05-23 17:40] LABS: ESR 42 mm/hr (0-30)
[2022-05-23 18:15] LABS: ALT 18 U/L (14-59); AST 14 U/L (15-37); Albumin 3.9 g/dL (3.4-5.0); Alkaline Phosphatase 57 U/L (46-116); Anion Gap 11.7 mmol/L (3-11); BUN 18 mg/dL (7-18); Bilirubin, Total 0.3 mg/dL (0.2-1.0); CO2 24.3 mmol/L (21.0-32.0); CREATININE 1.1 mg/dL (0.55-1.02); Chloride 104 mmol/L (98-107); Estimated GFR 58.24 (mL/min/1.73m2); Folate 8.9 ng/mL (8.6-20.0); Glucose 85 mg/dL (74-106); Potassium 4.1 mmol/L (3.5-5.1); Sodium 140 mmol/L (136-145); TSH (W/Ref FT4) 1.77 uIU/mL (0.36-3.74); Total Protein 6.9 g/dL (6.4-8.2); Vitamin B12 168 pg/mL (193-986)
== END 2022-05-23 15:05 | disposition home or self-care (01) ==
LOC: NCHCN 15:04
PROVIDERS: Visit Provider Family Medicine
DX: R26.81 Unsteadiness on feet (principal); R27.0 Ataxia, unspecified; E11.65 Type 2 diabetes mellitus with hyperglycemia; I10 Essential (primary) hypertension; R70.0 Elevated erythrocyte sedimentation rate
CPT/HCPCS: 80053; 85652; 82607; 82746; 84443; 85025

== ENCOUNTER → 2022-05-31 02:36 | Outpatient (CLI) | payer MEDICAID, SELFPAY ==
--- NOTE | 2022-05-31 15:30 | DI.CT_ITS ---
Exam(s) CT HEAD WO EXAM: CT HEAD WO CLINICAL HISTORY: ATAXIA, R27.0. TECHNIQUE: Imaging Protocol: Axial computed tomography images with coronal and sagittal reformatted images were created and reviewed COMPARISON: CT CT BRAIN NECK CTA from 03/22/2021 FINDINGS: There is an old right parietal infarct, as noted on previous examination March 2021.. No evidence of acute intracranial hemorrhage, mass effect, or midline shift. The orbital structures are unremarkable. The temporal bone structures appear intact. Calvarium: Normal. Visualized Paranasal sinuses/Mastoids: Clear. IMPRESSION: No evidence of acute process. RADIATION DOSE DELIVERED: 753.4mGy.cm Total DLP 753.4mGy.cm Total DLP DATA REPOSITORY: All CT scans at this facility are submitted to the National Radiology Data Registry (NRDR) Dose Index Registry (DIR) with the [employer] (ACR). RADIATION OPTIMIZATION: All CT scans at this facility use at least one of these dose optimization te chniques: automated exposure control; mA and/or kV adjustment per patient size (includes targeted exa ms where dose is matched to clinical indication); or iterative reconstruction.
== END ==
PROVIDERS: Visit Provider Family Medicine
DX: R27.0 Ataxia, unspecified (principal)
CPT/HCPCS: 70450

== ENCOUNTER 2022-09-04 01:57 | Outpatient (CLI) | payer MEDICAID, SELFPAY ==
--- NOTE | 2022-09-04 06:30 | DI.US_ITS ---
Exam(s) US CAROTID EXAM: US CAROTID CLINICAL HISTORY: s/p R carotid endarterectomy,rt carotid stenosis,i65.21,z98.890. TECHNIQUE: Ultrasound carotids performed using grayscale, color-flow, and spectral Doppler imaging. COMPARISON: CTA study 03/23/2021 reviewed FINDINGS: patient has apparently had right-sided endarterectomy approximately 1 year ago. CAROTID ARTERIES IN THE NECK: There is some mild intimal thickening in the mid left common carotid artery and left carotid bulb as well as in the right carotid bulb. No tight stenosis seen. Losses in both sides of the neck are upp er normal. VERTEBRAL ARTERIES: Antegrade flow demonstrated in both vertebral arteries. Measurements: R Bulb: 100.8cm/s PS / 25.9cm/s ED R CCA: 109.9cm/s PS / 31.4cm/s ED R ECA: 143.5cm/s PS / 19.4cm/s ED R ICA Prox: 115.4cm/s PS / 22.3cm/s ED R ICA Mid: 96.6cm/s PS / 23.5cm/s ED R ICA Distal: 116.6cm/s PS /45.5cm/s ED R Vert: 73.5cm/s PS / 29.9cm/s ED R SVR: 1.1 R DVR: 1.4 L Bulb: 64.5cm/s PS / 18.4cm/s ED L CCA: 98.6cm/s PS / 28.5cm/s ED L ECA: 137.5cm/s PS / 23.2cm/s ED L ICA Prox: 113cm/s PS / 40cm/s ED L ICA Mid: 94.7cm/s PS / 40cm/s ED L ICA Distal: 119cm/s PS / 44.6cm/s ED L Vert: 78.3cm/s PS / 26.9cm/s ED L SVR: 1.2 L DVR: 1.6 IMPRESSION: Some intimal thickening mild plaque bilaterally in the carotid arteries. Amount of stenosis is signi ficantly less than 50 percent bilaterally, probably approximately 10-15 percent bilaterally. Antegrade flow was demonstrated in both vertebral arteries. Criteria for Carotid Stenosis: Normal: ICA PSV <125 cm/s no plaque or intimal thickening is visible. <50% stenosis: ICA PSV <125 cm/s and plaque or intimal thickening is visible. 50-69% stenosis: ICA PSV is 125-250 cm/s and plaque is visible. >70% stenosis to near occlusion: ICA PSV >250 cm/s with visible plaque and luminal narrowing. DATA REPOSITORY:
== END 2022-09-04 02:17 ==
LOC: DI 01:57
PROVIDERS: PCP Family Medicine; Visit Provider Psychiatry & Neurology Neurology
DX: I65.23 Occlusion and stenosis of bilateral carotid arteries; Z98.890 Other specified postprocedural states
CPT/HCPCS: 93880

== ENCOUNTER 2023-12-30 15:24 | Outpatient (REF) | payer MEDICARE, MEDICAID, SELFPAY ==
[2023-12-30 21:51] LABS: Abs Immature Grans 0.02 10^3/uL (0.0-0.06); Absolute Basophil Count 0.03 10^3/uL (0.0-0.2); Absolute Eosinophil Count 0.04 10^3/uL (0.0-0.7); Absolute Lymphocyte Count 2.05 10^3/uL (1.2-3.4); Absolute Monocyte Count 0.43 10^3/uL (0.1-0.8); Absolute Neutrophil Count 4.16 10^3/uL (1.2-6.7); Basophils % 0.4 %; Eosinophils % 0.6 %; HGB 16.6 g/dL (11.2-15.7); Immature Grans % 0.3 %; Lymphocytes % 30.5 %; MCHC 33.2 % (32.0-36.0); MCV 97 fL (80-95); MPV 12.5 fL (8.0-11.0); Monocytes % 6.4 %; Neutrophils % 61.8 %; Platelet Count 145 10^3/uL (130-400); RBC 5.18 10^6/uL (3.93-5.22); RDW 14.2 % (11.7-14.6); RDW-SD 50.5 fL; WBC 6.73 10^3/uL (4.4-10.8)
[2023-12-30 22:27] LABS: COMMENT (LAB VIEW ONLY) 80.39 mg/dL
[2023-12-30 22:30] LABS: ALT 27 U/L (14-59); AST 15 U/L (15-37); Albumin 3.5 g/dL (3.4-5.0); Alkaline Phosphatase 94 U/L (46-116); Anion Gap 7.8 mmol/L (3-11); BUN 17 mg/dL (7-18); Bilirubin, Total 0.31 mg/dL (0.2-1.0); CO2 29.2 mmol/L (21.0-32.0); CREATININE 1.1 mg/dL (0.55-1.02); Calcium 8.9 mg/dL (8.5-10.1); Chloride 103 mmol/L (98-107); Estimated GFR 57.88 (mL/min/1.73m2); Folate 7.5 ng/mL (8.6-20.0); Glucose 291 mg/dL (74-106); Potassium 4.6 mmol/L (3.5-5.1); Sodium 140 mmol/L (136-145); TSH (W/Ref FT4) 1.33 uIU/mL (0.36-3.74); Total Protein 6.7 g/dL (6.4-8.2); Vitamin B12 327 pg/mL (193-986)
[2023-12-30 22:32] LABS: Microalb ug/mg Crea 167.2 ug/mg Cr
== END 2023-12-30 15:25 | disposition home or self-care (01) ==
LOC: NCHCN 15:24
PROVIDERS: PCP Family Medicine; Visit Provider Family Medicine
DX: I10 Essential (primary) hypertension (principal); E11.40 Type 2 diabetes mellitus with diabetic neuropathy, unspecified; E53.8 Deficiency of other specified B group vitamins
CPT/HCPCS: 80053; 82043; 82570; 82607; 82746; 84443; 85025

== ENCOUNTER 2024-04-14 12:53 | Outpatient (REF) | payer MEDICARE, SELFPAY ==
--- OUTSIDE RECORDS SUMMARY | 2024-04-14 12:54 | XMS_ITS | Encounter Summary ---
Author Organization [facility] [place] [address] Care Team Providers Care Customer Service Security Officer Name Role Phone Pk Trevizo MD Primary Care Provider [phone] Encounter Details Date Type Department Care Team (Late st Contact Info) Description 11/01/2023 Notes [place] [address] Amiar Perez PA [facility] INTERVENTIONAL [place] [address] Social History Tobacco Use Types Packs/Day Years Used Date Smoking Tobacco: Every Day Cigarettes 1 20 Smokeless Tobacco: Never Comments:varies to about 1-1 .5 packs per day Alcohol Use Standard Drinks/Week Comments Never 0 (1 standard drink = 0.6 oz pur e alcohol) Sex and Gender Information Value Date Recorded Sex Assigned at Not on file Gender Identity Not on file Sexual Orientation Lesbian or Stark 11/06/2022 5: 13 PM EDT documented as of this encounter H&P Notes * Amira Perez PA - 11/01/2023 1:49 PM EDT Images from the original note were not included. Interventional Radiology Focused Pre-procedure H&P: PCP: Pk Trevizo MD Referring Provider: Jaida Mcconnell APRN Planned procedure: Mediport removal Procedure indication: Endometrial adenocarcinoma, completion of chemotherapy IR workflow: Procedure request received through Interventional Radiology eDH order queue. There are no answered order specific questions. History of Present Illness: Per chart review, Geeta Sadler is a 58 y.o. female with PMH of endometrial adenocarcinoma s/p right IJ chest port ( IR, 11/24/21) who presents to Interventional Radiology to undergo port removal. Past medical history is significant for cigarette smoker, HTN, T2DM, and obesity. Remainder of patient's medical and surgical history, allergies, medications, and social/family history obtained belowas previously outlined in patient's medical record. IR History: Date/Procedure Meds Given/Comments 11/24/21 Mediport Placement Fentanyl 150 mcg IV, Versed 3 mg IV, Zofran 4 mg IV. Tolerated procedurewell. Anticoagulation/Antiplatelet: ASA 81mg Labs: Lab Results Component Value Date HGB 12.1 11/20/2022 HCT 36.6 11/20/2022 WBC 8.0 11/20/2022 PLATELET 176 11/20/2022 BUN 15 11/20/2022 CREATININE 0.95 11/20/2022 ALBUMIN 3.9 11/20/2022 BILITOT <0.2 (L) 11/20/2022 AST 15 11/20/2022 ALT 18 11/20/2022 ALKPHOS 75 11/20/2022 Allergies: Taxol [paclitaxel] Imaging: Mediport implant 11/24/21 Assessment: 58 y.o. female with right chest port presenting to Interventional Radiology for port removal. Plan Planned procedure: Mediport removal Labs to be performed day of procedure: No labs Sedation: No Sedation Prophylactic antibiotic : None Contrast: No contrast Additional medications for procedure: Lidocaine Planned access site: right chest Position: Supine Consent: Pending Medications to discontinue (and days held): None Cytopathology presence needed: No Case Urgency:: G2- Elective Outpatient intervention within 8-14 days Medications: Current Outpatient Medications on File Prior to Visit Medication Sig Dispense Refill metFORMIN (Glucophage) 500 mg Tablet Take 1 tablet by mouth 2 times daily. (Patient not taking: Reported on 11/01/2023) 60 tablet 2 acetaminophen (Tylenol) 325 mg Tablet Take 2 tablets by mouth every 6 hours as needed for Pain. 30 tablet 0 polyethylene glycoL (Miralax) 17 gram Powder in Packet Take 17 g by mouth daily as needed. (Patientnot taking: Reported on 11/13/2021) 14 each 2 OneTouch Verio test strips Strip 1 each by Other route 3 times daily. Use as instructed Indications: diabetes mellitus (Patient not taking: Reported on 04/03/2022) 300 each 3 OneTouch Delica Lancets 30 gauge Misc 1 each by Other route 3 times daily. Indications: diabetes mellitus (Patient not taking: Reported on 04/03/2022) 300 each 3 atorvastatin (Lipitor) 80 mg Tablet Take 1 tablet by mouth every evening. (Patient not taking: Reported on 04/03/2022) 90 tablet 3 aspirin 81 mg Tablet, Chewable Take 81 mg by mouth daily. No current facility-administered medications on file prior to visit. Past Medical/Surgical history: Patient Active Problem List Diagnosis Code Hypertension I10 Obesity E66.9 Abnormal vaginal bleeding with endometrial thickness greater than 5 mm present on transvaginal ultrasound in postmenopausal patient N95.0, R93.89 Stenosis of right carotid artery greater than 50% I65.21 Adenocarcinoma of endometrium C54.1 Cigarette smoker F17.210 Post-operative state Z98.890 Stroke I63.9 Diabetes E11.9 Tobacco use disorder F17.200 Hypersensitivity reaction T78.40XA Past Medical History: Diagnosis Date Abnormal vaginal bleeding with endometrial thickness greater than 5 mm present on transvaginal ultrasound in postmenopausal patient Diabetes 10/17/2021 Hypertension Obesity Stroke Tobacco use disorder Past Surgical History: Procedure Laterality Date IR MEDIPORT PLACEMENT 11/24/2021 IR Mediport Placement 11/24/[address] [facility] INTERVENTION[facility] RAD PRO CYSTOURETHROSCOPY, URETER CATHETER N/A 10/17/2021 CYSTO, RETROGRADE, URETEROPYELOGRAPHY (WRVU 2.37) performed by Justice Cole MD at [facility] MAIN OR PRO EXPLORATION OF ABDOMEN N/A 10/17/2021 @EXPLORATORY LAPAROTOMY, WITH/WITHOUT BIOPSY(S) (WRVU 12.54) performed by Jared Kiser MD at [facility] MAIN OR PRO INCISE BLADDER, +URETER CATH Left 10/17/2021 CYSTOTOMY WITH INSERTION OF URETERAL STENT\CATHETER (WRVU 7.81) performed by Justice Cole MD at [facility] MAIN OR PRO INTRAOP SENTINEL LYMPH ID W/DYE INJECTION N/A 10/17/2021 INTRAOPERATIVE ID (MAPPING) SENTINEL LYMPH NODE,INCLUDES INJECTION (WRVU 2.5) performed by Brian Vidales MD at [facility] MAIN OR PRO LAP, PELVIC LYMPHADENECTOMY/BX N/A 10/17/2021 LAPAROSCOPY,W\BILATERAL TOTAL PELVIC LYMPHADENECTOMY, PERIAORTIC LYMPH NODE SAMPLING, ROBOTIC (WRVU15.6) performed by Brian Vidales MD at [facility] MAIN OR PRO LAPAROSCOPY W TOT HYSTERECTUTERUS <=250 GRAM W TUBE/OVARY N/A 10/17/2021 LAPAROSCOPY,TOTAL HYST, UTERUS<250GM, REM TUBE &/OR OVARY, ROBOTIC ASSIST (WRVU 15) performed by Brian Vidales MD at [facility] MAIN OR PRO REPAIR OF KIDNEY WOUND 10/17/2021 @NEPHRORRHAPHY, SUTURE KIDNEY WOUND OR INJURY (WRVU 21.22) performed by Justice Cole MD at [facility] MAIN OR PRO THROMBOENDARTECTMY NECK, NECK INCIS Right 09/15/2021 @ENDARTERECTOMY, CAROTID, VERTEBRAL,SUBCLAVIAN W\WO PATCH GRAFT (WRVU 21.16) performed by Mickey Magallon MD at [facility] MAIN OR Social History and Habits: Social History Tobacco Use Smoking status: Every Day Packs/day: 1.00 Years: 20.00 Additional pack years: 0.00 Total pack years: 20.00 Types: Cigarettes Smokeless tobacco: Never Tobacco comments: varies to about 1-1.5 packs per day Vaping Use Vaping Use: Never used Substance Use Topics Alcohol use: Never Drug use: Never Significant Family History: No family history on file. Pertinent ROS: as per HPI Physical Exam: Pending (to be performed in IR the day of procedure) ASA: Pending (to be assessed in IR the day of procedure) Mallampati class: Pending (to be assessed in IR the day of procedure) 11/01/2023 Amira Perez PA-C documented in this encounter Plan of Treatment Not on file documented as of this encounter Visit Diagnoses Not on filedocumented in this encounter Care Teams Customer Service Security Officer Relationship Specialty Start Date End Date Pk Trevizo MD [address] [place] [id number] PCP - General Emergency Medicine 05/02/21 documented as of this encounter
--- OUTSIDE RECORDS SUMMARY | 2024-04-14 12:54 | XMS_ITS | Clinical Summary ---
Author Organization [facility] Address [address] [place] [address] Care Team Providers Care Area Captain Name Role Phone None, Provider Primary Care Provider Unavailabl e Allergies No known active allergies Immunizations Name Administration Dates Next Due Covid-19 mRNA Vaccine (MODER NA COVID-19) PF 0.5 ml IM (12 yrs+) 11/22/2020,10/25/2020 Social History Tobacco Use Types Packs/Day Years Used Date Smoking Tobacco: Never Assessed Sex and Gender Information Value Date Recorded Sex Assigned at Not on file Gender Identity Not on file Sexual Orientation Not on file Last Filed Vital Signs Vital Sign Reading Time Taken Comments Blood Pressure 189/72 03/01/20232024 EDT Pulse 80 03/01/20232024 EDT Temperature 36.8 ??C (98.2 ??F) 03/01/20232024 EDT Respiratory Rate 18 03/01/20232024 EDT Oxygen Saturation 99% 03/01/20232024 EDT Inhaled Oxygen Concentration - - Weight 133.9 kg (295 lb 3.1 oz) 03/01/20232024 EDT Height - - Body Mass Index - - Plan of Treatment Health Maintenance Due Date Last Done Comments COVID-19 Vaccine (2022- season) 2023, 10/25/2020 RSV Immunization ( o r 60+ Years) (1 - 1-dose 60+ series) 2024 Hepatitis C Screen Completed 08/02/2021 Procedures Procedure Name Priority Date/Time Associated Diagnosis Comments HEPATITIS C AB W REFLEX TO HCV RNA BY PCR Routine 08/02/2021 14:40 EST from Last 3 Months or Most Recently Relevant to Health Maintenance Results * HEPATITIS C AB W REFLEX TO HCV RNA BY PCR (08/02/2021 14:40 EST) Hep C Antibody Negative Negative 08/04/2021 11:22 EST [facility] Blood VENOUS BLOOD / Unknown 08/02/2021 14:40 EST 08/03/2021 17:25 EST Provider Outr Resulting Lab CHEMISTRY & BLOOD GAS ORDERABLES [facility] [address] [place] [address] from Last 3 Months or Most Recently Relevant to Health Maintenance Care Teams Area Captain Relationship Specialty Start Date End Date None, Provider PCP - General 01/29/21
--- OUTSIDE RECORDS SUMMARY | 2024-04-14 12:54 | XMS_ITS | Encounter Summary ---
[place] [address] Care Team Providers Care Pan Devulcanizer Helper Name Role Phone Pk Trevizo MD Primary Care Provider [phone] Encounter Details Date Type Department Care Team (Latest Contact Info) Description 11/19/2023 Travel Social History Tobacco Use Types Packs/Day Years [...] PM EDT documented as of this encounter Plan of Treatment Not on file documented as of this encounter Visit Diagnoses Not on filedocumented in this encounter Care Teams Pan Devulcanizer Helper Relationship Specialty Start Date End Date Pk Trevizo MD [address] [place] [address] PCP - General Emergency Medicine 05/02/21 documented as of this encounter
--- OUTSIDE RECORDS SUMMARY | 2024-04-14 12:54 | XMS_ITS | Encounter Summary ---
Author Organization [facility] [place] [address] Care Team Providers Care Chicken Handler Name Role Phone Pk Trevizo MD Primary Care Provider [phone] Encounter Details Date Type Department Care Team (Latest Contact Info) Description 11/01/2023 Travel Social History Tobacco Use Types Packs/Day [...] on filedocumented in this encounter Care Teams Chicken Handler Relationship Specialty Start Date End Date Pk Trevizo MD [address] [place] [address] PCP - General Emergency Medicine 05/02/21 documented as of this encounter
--- OUTSIDE RECORDS SUMMARY | 2024-04-14 12:54 | XMS_ITS | Encounter Summary ---
Author Organization [facility] Address [address] [place] [address] Care Team Providers Care Dermatology Specialist Name Role Phone None, Provider Primary Care Provider Unavailabl e Encounter Details Date Type Department Care Team (Late st Contact Info) Description 02/03/2021 Lab Requisition [facility] [address] [place] [address] Jayla Church [address] [place] [address] [place] [phone] Encounter for other general examination Social History Tobacco Use Types Packs/Day Years Used Date Smoking Tobacco: Never Assessed Sex and Gender Information Value Date Recorded Sex Assigned at Not on file Gender Identity Not on file Sexual Orientation Not on file documented as of this encounter Plan of Treatment Not on file documented as of this encounter Procedures Procedure Name Priority Date/Time Associated Diagnosis Comments SURGICAL PATHOLOGY Today 02/03/2021 9: 00 EDT Encounter for other general examination documented in this encounter Results * SURGICAL PATHOLOGY (02/03/2021 9:00 EDT) Note to Patient The following pathology results have been interpreted by your pathologist and may be available to you before your health provider has had the opportunity to review them. Please allow time for your provider to receive these results and explore management options, if applicable. 02/07/2021 9:12 EDT [facility] Final Diagnosis A. ENDOMETRIUM, BIOPSY: - Very scant superficial inactive endometrial fragments with reactive epithelial changes. - Fragments of benign endocervix with squamous metaplasia and reactive epithelial changes also present. 02/07/2021 9:12 EDT [facility] Attestation There was significant resident/fellow involvement in the diagnostic evaluation of this case. By the signature below, the attending physician certifies that they have personally conducted a gross and/or microscopic examination of the described specimens and rendered or confirmed the above diagnosis. 02/07/2021 9:12 EDT [facility] at 0912 Clinical History Postmenopausal bleeding 02/07/2021 9:12 EDT [facility] Gross Description A. Received in formalin labelled with proper patient identification (initials H, K) and endometrium Bx is an aggregate of hemorrhage (1.6 x 0.8 x 0.6 cm). The specimen is submitted entirely in A1-A2. MARILOU SHAFER([facility]) 02/03/2021 16:05 02/07/2021 9:12 EDT [facility] Resident/Jerry w: Sophia Mock DO 02/07/2021 9:12 EDT [facility] Performing Lab [facility] 02/07/2021 9:12 EDT [facility] Scanned Images 02/07/2021 9:12 T [facility] Tissue ENTIRE ENDOMETRIUM / Unknown 02/03/2021 9:00 EDT 02/03/2021 16:00 EDT Jayla Church PATHOLOGY ORDERABLES [facility] [address] [place] [address] documented in this encounter Visit Diagnoses Diagnosis Encounter for other general examination documented in this encounter Care Teams Dermatology Specialist Relationship Specialty Start Date End Date None, Provider PCP - General 01/29/21 documented as of this encounter
--- OUTSIDE RECORDS SUMMARY | 2024-04-14 12:54 | XMS_ITS | Encounter Summary ---
Author Organization [facility] [place] [address] Care Team Providers Care Pharmacy District Manager Name Role Phone Pk Trevizo MD Primary Care Provider [phone] Reason for Referral * Diagnostic Test (Routine) - Closed Specialty Diagnoses / Procedures Referred By Contac t Referred To Contact Radiology Diagnoses Adenocarcinoma of endometrium Procedures CT Chest Abdomen Pelvis w Contrast (Generic) Brian Vidales MD [facility] [place] [address] [facility] [place] [address] Referral ID Status Reason Start Date Expiration Date V isits Requested Visits Authorized [id number] Closed Specialty Service Requested 11/07/2022 05/10/2024 1 1 Reason for Visit * Diagnostic Test (Routine) - Closed Specialty Diagnoses / Procedures Referred By Contac t Referred To Contact Radiology Diagnoses Adenocarcinoma of endometrium Procedures CT Chest Abdomen Pelvis w Contrast (Generic) Brian Vidales MD [facility] [place] [address] [facility] [place] [address] Referral ID Status Reason Start Date Expiration Date V isits Requested Visits Authorized [id number] Closed Specialty Service Requested 11/07/2022 05/10/2024 1 1 Encounter Details Date Type Department Care Team (Latest Contact Info) Description 11/20/2022 9:31 AM EDT - 11/20/2022 11:59 PM EDT Hospital Encounter CT Scan at [facility] [place] [phone] Brian Vidales MD [facility] [place] [address] Adenocarcinoma of endometrium Discharge Disposition: Home Social History Tobacco Use Types Packs/Day Years [...] PM EDT documented as of this encounter Medications at Time of Discharge Medication Sig Dispensed Refills Start Date End Date metFORMIN (Glucophage) 500 mg TabletIndications:Type 2 diabetes mellitus with other specified complication, without long-term current use of insulin Take 1 tablet by mouth 2 times daily. 60 tablet 2 02/23/2022 acetaminophen (Tylenol) 325 mg Tablet Take 2 tablets by mouth every 6 hours as needed for Pain. 30 tablet 10/20/2021 polyethylene glycoL (Miralax) 17 gram Powder in Packet Take 17 g by mouth daily as needed. 14 each 2 10/20/2021 OneTouch Verio test strips StripIndications:diabet es mellitus 1 each by Other route 3 times daily. Use as instructed Indications: diabetes mellitus 300 each 3 10/20/2021 OneTouch Delica Lancets 30 gauge MiscIndications:diabete s mellitus 1 each by Other route 3 times daily. Indications: diabetes mellitus 300 each 3 10/20/2021 atorvastatin (Lipitor) 80 mg Tablet Take 1 tablet by mouth every evening. 90 tablet 3 09/16/2021 aspirin 81 mg Tablet, Chewable Take 81 mg by mouth daily. documented as of this encounter Plan of Treatment Not on file documented as of this encounter Procedures Procedure Name Priority Date/Time Associated Diagnosis Comments CT CHEST ABDOMEN PELVIS W CONTRAST (GENERIC) Routine 11/20/2022 11:59 AM EDT Adenocarcinoma of endometrium documented in this encounter Results * CT Chest Abdomen Pelvis w Contrast (Generic) (11/20/2022 11:59 AM EDT) Anatomical Region Laterality Modality Abdomen, Pelvis Computed Tomogra phy Impressions 11/20/2022 1:43 PM EDT No interval change. Maintained prominence of periaortic lymph nodes. No evidence of local recurrence or metastatic disease in the chest, abdomen and pelvis. Thank you for letting us participate in the care of this patient. ??If you are a health care provider and have any questions regarding this report, please contact the number below. ??For patients who have questions please contact the health pet care assistant that requested your imaging first. ? Narrative 11/20/2022 1:43 PM EDT EXAMINATION: CT CHEST ABDOMEN PELVIS W CONTRAST (GENERIC) CLINICAL HISTORY: Uterine/cervical cancer, monitor TECHNIQUE: Helical CT of the chest, abdomen, and pelvis following the intravenous administration of contrast. Administered 120.0 ml of OMNIPAQUE 350.00 mg/ml. Oral contrast was administered. COMPARISON: April 03, 2022 FINDINGS: Chest: Lungs and large airways: No suspicious pulmonary masses or nodules. Pleura: No effusion. Heart/vasculature: Right-sided MediPort in place. Normal appearance of the heart and thoracic aorta. Lymph nodes: No enlarged lymph nodes. Mediastinum and radha: Normal. Abdomen/pelvis: Liver: Normal size and attenuation without lesions. Bile ducts: Nondilated. Gallbladder: No calcified gallstones. Normal caliber wall. Pancreas: Normal attenuation without ductal dilatation. Spleen: Normal. Adrenals: Normal. Kidneys: Pelvic left kidney. Normal position of the right kidney surrounded by minimal nonspecific fat stranding. No evidence of calcifications, mass or collecting system dilatation. Urinary Bladder: Normal. Vasculature: No abdominal aortic aneurysm. Lymph Nodes: Unchanged prominent low para-aortic lymph node, 11 to 12 mm in short axis. Bowel: Nondilated, no wall thickening. ?? Peritoneum and retroperitoneum: Sclerosing mesenteritis changes, grossly stable. No free fluid. No pneumoperitoneum. No loculated fluid collection or mesenteric inflammation. Abdominal wall: Intact. Reproductive organs: Absent uterus. No adnexal masses. Osseous structures: No suspicious lesions. Procedure Note Bossman Cleaning MD - 11/20/2022 EXAMINATION: CT CHEST ABDOMEN PELVIS W CONTRAST (GENERIC) CLINICAL HISTORY: Uterine/cervical cancer, monitor TECHNIQUE: Helical CT of the chest, abdomen, and pelvis following the intravenous administration of contrast. Administered 120.0 ml ofOMNIPAQUE 350.00 mg/ml. Oral contrast was administered. COMPARISON: April 03, 2022 FINDINGS: Chest: Lungs and large airways: No suspicious pulmonary masses or nodules. Pleura: No effusion. Heart/vasculature: Right-sided MediPort in place. Normal appearance of theheart and thoracic aorta. Lymph nodes: No enlarged lymph nodes. Mediastinum and radha: Normal. Abdomen/pelvis: Liver: Normal size and attenuation without lesions. Bile ducts: Nondilated. Gallbladder: No calcified gallstones. Normal caliber wall. Pancreas: Normal attenuation without ductal dilatation. Spleen: Normal. Adrenals: Normal. Kidneys: Pelvic left kidney. Normal position of the right kidneysurrounded by minimal nonspecific fat stranding. No evidence of calcifications, massor collecting system dilatation. Urinary Bladder: Normal. Vasculature: No abdominal aortic aneurysm. Lymph Nodes: Unchanged prominent low para-aortic lymph node, 11 to 12 mmin short axis. Bowel: Nondilated, no wall thickening. Peritoneum and retroperitoneum: Sclerosing mesenteritis changes, grosslystable. No free fluid. No pneumoperitoneum. No loculated fluid collection ormesenteric inflammation. Abdominal wall: Intact. Reproductive organs: Absent uterus. No adnexal masses. Osseous structures: No suspicious lesions. IMPRESSION No interval change. Maintained prominence of periaortic lymph nodes. Noevidence of local recurrence or metastatic disease in the chest, abdomen andpelvis. Thank you for letting us participate in the care of this patient. If youare a health care provider and have any questions regarding this report,please contact the number below. For patients who have questions please contactthe health pet care assistant that requested your imaging first. Brian Vidales MD IMG CT ORDERABLES documented in this encounter Visit Diagnoses Diagnosis Adenocarcinoma of endometrium Malignant neoplasm of corpus uteri, except isthmus documented in this encounter Administered Medications Inactive Administered Medications - up to 3 most recent administrations Medication Order MAR Action Action Date Dose Rate Site barium sulfate (Readi-Cat) 2.0 % (w/v) oral liquid 450-900 mL 450-900 mL, Oral, ONCE PRN, 1 dose, Starting on 11/20/22 at 1200, Until 11/20/22 at 1201, Per Protocol, Radiology Contrast, Routine Given 11/20/2022 12:01 PM EDT 900 mLs iohexoL (Omnipaque) (350 mg/mL) solution 0-200 mL 0-200 mL, Intravenous, ONCE PRN, 1 dose, Starting on 11/20/22 at 1200, Until 11/20/22 at 1201, Per Protocol, Warning Vesicant/Irritant Medication , Radiology Contrast, Routine Given 11/20/2022 12:01 PM EDT 120 mLs documented in this encounter Care Teams Pharmacy District Manager Relationship Specialty Start Date End Date Pk Trevizo MD [address] [place] [id number] PCP - General Emergency Medicine 05/02/21 documented as of this encounter
--- OUTSIDE RECORDS SUMMARY | 2024-04-14 12:54 | XMS_ITS | Encounter Summary ---
[place] [address] Care Team Providers Care Lpn Or Medical Assistant Name Role Phone Pk Trevizo MD Primary Care Provider [phone] Encounter Details Date Type Department Care Team (Latest Contact Info) Description 11/20/2022 9:55 AM EDT Laboratory Appointment Lab [address] [place] [id number] Adenocarcinoma of endometrium Social History Tobacco Use Types Packs/Day Years [...] Procedure Name Priority Date/Time Associated Diagnosis Comments HEMOGRAM Routine 11/20/2022 10:18 AM EDT Adenocarcinoma of endometrium DIFFERENTIAL, AUTOMATED Routine 11/20/2022 10:18 AM EDT Adenocarcinoma of endometrium CBC (WITH DIFF) Routine 11/20/2022 10:18 AM EDT Adenocarcinoma of endometrium CANCER ANTIGEN 125 Routine 11/20/2022 10 :18 AM EDT Adenocarcinoma of endometrium COMPREHENSIVE METABOLIC PANEL Routine 11/20/2022 10:18 AM EDT Adenocarcinoma of endometrium documented in this encounter Results * Differential, Automated (11/20/2022 10:18 AM EDT) Neutrophil % 57.4 % [facility] Neutrophil Absolute 4.62 1.70 - 6.10 x10(3)/[facility] Lymph % 35.7 % [facility] Lymphocytes Abs 2.9 0.9 - 3.2 x10(3)/[facility]OR[facility]ORY Monocyte % 5.6 % [facility] Monocyte Abs 0.4 0.3 - 0.9 x10(3)/[facility] Eos % 0.7 % [facility] Eosinophils Abs 0.1 0.0 - 0.4 x10(3)/[facility] Basophil % 0.4 % [facility] Baso Absolute 0.0 0.0 - 0.1 x10(3)/[facility] LAB[facility]ORY Immature Gran % 0.20 % [facility] Comment: Immature granulocytes(IG's)percentage and absolute count will include metamyelocytes, myelocytes, and promyelocytes. Blood smears from CBCs yielding IG's will be scanned manually for concordance. If this scan disagrees with the automated IG or if promyelocytes are noted, a manual differential will be performed. Immature Gran Absolute 0.02 0.00 - 0.04 x10(3)/[facility] Blood 11/20/2022 10:1 8 AM EDT 11/20/2022 10:39 AM EDT Narrative Resulting Agency Comment Spec In Lab Brian Vidales MD HEMATOLOGY ORDERABLE S [facility] [place] [address] * (ABNORMAL) Hemogram (11/20/2022 10:18 AM EDT) White Blood Cell 8.0 4.0 - 9.5 x10(3)/mc L [facility] Red Blood Cell 3.82(L) 4.00 - 5.21 x10(6)/mc L [facility] Hemoglobin 12.1 11.7 - 15.5 g/dL [facility] Hematocrit 36.6 35.7 - 45.8 % [facility] Mean Cell Volume 95.8(H) 82.6 - 94.4 fL [facility] Mean Cell Hemoglobin 31.7 27.1 - 32.0 pg [facility] Mean Cell Hemoglobin Concentration 33.1 31.7 - 35.0 g/dL [facility] Platelet 176 145 - 357 x10(3)/mc L [facility] RDW Standard Deviation 49.8(H) 37.0 - 46.0 fL [facility] RDW coefficient of variation 14.3(H) 11.5 - 14.1 % [facility] Mean Platelet Volume 12.1 7.6 - 12.9 fL [facility] NRBC% auto 0.0 % [facility] NRBC Absolute 0.000 0.000 - 0.000 x10(3)/mc L [facility] Blood 11/20/2022 10:1 8 AM EDT 11/20/2022 10:39 AM EDT Narrative Resulting Agency Comment Spec In Lab Brian iVdales MD HEMATOLOGY ORDERABLE S Performing Organization Address City/State/[facility] Co de Phone Number [facility] [place] [address] * (ABNORMAL) Comprehensive metabolic panel (non-fasting) (11/20/2022 10:18 AM EDT) Glucose 101 65 - 199 mg/dL [facility] Comment:Diabetes: >=200 mg/d L plus symptoms Blood Urea Nitrogen 15 8 - 18 mg/dL [facility] Creatinine 0.95 0.70 - 1.20 mg/dL [facility] Sodium 144 135 - 145 mmol/L [facility] Potassium 4.5 3.5 - 5.0 mmol/L [facility] Comment: Please note: ??Patients with WBC >100,000 may have falsely elevated Potassium levels. ??For accurate Potassium quantification in these patients send serum separator tube (gold top) for subsequent determinations. ??Contact the Clinical Chemistry Laboratory if there are any questions. Chloride 108(H) 98 - 107 mmol/L [facility] Carbon Dioxide 26 22 - 31 mmol/L [facility] Anion Gap 10 5 - 15 mmol/L [facility] Calcium 9.4 8.5 - 10.5 mg/dL [facility] Protein, Total 6.7 6.1 - 8.0 g/dL [facility] Albumin 3.9 3.2 - 5.2 g/dL [facility] Aspartate Aminotransferase 15 0 - 30 unit/L [facility] Alanine Aminotransferase 18 0 - 30 unit/L [facility] Alkaline Phosphatase 75 35 - 105 unit/L [facility] Bilirubin, Total <0.2(L) 0.2 - 1.3 mg/dL [facility] Est Glomerular Filtration Rate 69 >=60 mL/min/1. 73 m?? [facility] Comment: This patient's estimated GFR was calculated using the 2020 CKD-EPI equation. The estimated GFR can vary from the measured GFR by up to 30% in the absence of rapidly changing kidney function. Assessment of the estimated GFR is not appropriate when creatinine concentrations are rapidly changing. For clinical situations in which a more precise estimate of GFR is necessary, consider alternative methods of GFR estimation such as a 24-hour urine creatinine clearance. Assignment of CKD stage 1-5 for patients with an eGFR near the transition point between stages may be based on clinical assessment of muscle mass and symptoms in addition to eGFR. Blood 11/20/2022 10:1 8 AM EDT 11/20/2022 10:39 AM EDT Narrative Resulting Agency Comment Spec In Lab Brian Vidales MD CHEMISTRY ORDERABLES Performing Organization Address City/State/[facility] Co de Phone Number [facility] [place] [address] * Cancer Antigen 125 (11/20/2022 10:18 AM EDT) CA 125 6.7 <=38.1 unit/mL [facility] Comment: CA 125 Reference Interval ??Postmenopausal: 6.2 to 31.5 U/mL. ??Premenopausal: 6.9 to 45.9 U/mL. ??Pre and Postmenopausal subjects combined: 6.4 to 38.1 U/mL. This result was generated using a Ian Gabino immunoassay. ??Results obtained from other methods or manufacturers cannot be used interchangeably with this method. Blood 11/20/2022 10:1 8 AM EDT 11/20/2022 10:38 AM EDT Narrative Resulting Agency Comment Spec In Lab Brian Vidales MD CHEMISTRY ORDERABLES [facility] [place] [address] documented in this encounter Visit Diagnoses Diagnosis Adenocarcinoma of endometrium Malignant neoplasm of corpus uteri, except isthmus documented in this encounter Care Teams Lpn Or Medical Assistant Relationship Specialty Start Date End Date Pk Trevizo MD [address] [place] [address] PCP - General Emergency Medicine 05/02/21 documented as of this encounter
--- OUTSIDE RECORDS SUMMARY | 2024-04-14 12:54 | XMS_ITS | Encounter Summary ---
Author Organization [facility] [place] [address] Care Team Providers Care Plastic Joint Maker Name Role Phone Pk Trevizo MD Primary Care Provider [phone] Encounter Details Date Type Department Care Team (Late st Contact Info) Description 11/21/2022 Telephone Gyne[place] [phone] Stefania Cambpell RN Social History Tobacco Use Types Packs/Day Years [...] PM EDT documented as of this encounter Miscellaneous Notes * Telephone Encounter - Stefania Campbell RN - 11/21/2022 11:52 AM EDT Nurse called patient per MD request. Informed patient that per , CT is stable, and that shewill follow-up in 3 months as we discussed during her clinic visit. Patient verbalized understanding and has no further questions at this time. Note forwarded to secretaries to schedule a follow up visit in 3 months time. * Telephone Encounter - Stefania Campbell RN - 11/21/2022 11:52 AM EDT ----- Message from Brian Vidales MD sent at 11/21/2022 10:48 AM EDT ----- Can you call this patient and let her know that her CT is stable, and that she will follow-up in 3 months as we discussed during her clinic visit?. Thank you. ----- Message ----- From: Department, Radiology Sent: 11/20/2022 1:48 PM EDT To: Brian Vidales MD documented in this encounter Plan of Treatment Not on file documented as of this encounter Visit Diagnoses Not on filedocumented in this encounter Care Teams Plastic Joint Maker Relationship Specialty Start Date End Date Pk Trevizo MD [address] [place] [id number] PCP - General Emergency Medicine 05/02/21 documented as of this encounter
--- OUTSIDE RECORDS SUMMARY | 2024-04-14 12:54 | XMS_ITS | Encounter Summary ---
[place] [address] Care Team Providers Care Museum Director Name Role Phone Pk Trevizo MD Primary Care Provider [phone] Reason for Referral * Diagnostic Test (Routine) - Closed Specialty Diagnoses / Procedures Referred By Kit saravia Referred To Contact Radiology Diagnoses Adenocarcinoma of endometrium Procedures CT Chest Abdomen Pelvis w Contrast (Generic) Brian Vidales MD [facility] [place] [address] [facility] [place] [address] Referral ID Status Reason Start Date Expiration Date V isits Requested Visits Authorized [id number] Closed Specialty Service Requested 11/07/2022 05/10/2024 1 1 Encounter Details Date Type Department Care Team (Late st Contact Info) Description 11/07/2022 Orders Only [place] [address] Tiana Benz RN Adenocarcinoma of endometrium Social History Tobacco Use [...] on file documented as of this encounter Results * CT Chest Abdomen [...] who have questions please contact the health patient centered care specialist that requested your imaging first. ? Electronically signed by: Bossman Cleaning MD, [facility] ([phone]), at 11/20/2022 1:43 PM Narrative 11/20/2022 1:43 PM EDT EXAMINATION: CT [...] patients who have questions please contactthe health patient centered care specialist that requested your imaging first. Electronically signed by: Bossman Cleaning MD, [facility]([phone]), at 11/20/2022 1:43 PM Brian Vidales MD IMG CT ORDERABLES documented in this encounter Visit Diagnoses Diagnosis Adenocarcinoma of endometrium Malignant neoplasm of corpus uteri, except isthmus Adenocarcinoma of endometrium Malignant neoplasm of corpus uteri, except isthmus documented in this encounter Care Teams Museum Director Relationship Specialty Start Date End Date Pk Trevizo MD [address] [place] [address] PCP - General Emergency Medicine 05/02/21 documented as of this encounter
--- OUTSIDE RECORDS SUMMARY | 2024-04-14 12:54 | XMS_ITS | Encounter Summary ---
[facility] Organization [facility] [place] [address] Care Team Providers Care Sanitary Engineer Name Role Phone Pk Trevizo MD Primary Care Provider [phone] Encounter Details Date Type Department Care Team (Late st Contact Info) Description 10/28/2023 Orders Only [place] [address] Faye Olson, RN Central venous catheter in place Social History Tobacco Use Types Packs/Day Years [...] documented as of this encounter Visit Diagnoses Diagnosis Central venous catheter in place documented in this encounter Care Teams Sanitary Engineer Relationship Specialty Start Date End Date Pk Trevizo MD [address] [place] [address] PCP - General Emergency Medicine 05/02/21 documented as of this encounter
--- OUTSIDE RECORDS SUMMARY | 2024-04-14 12:54 | XMS_ITS | Encounter Summary ---
[place] [address] Care Team Providers Care Packing Inspector Name Role Phone Pk Trevizo MD Primary Care Provider [phone] Reason for Referral * Diagnostic Test (Routine) - Closed Specialty Diagnoses / Procedures Referred By Contac t Referred To Contact Radiology Diagnoses Adenocarcinoma of endometrium Procedures IR Mediport Removal Jaida Bliss [facility] [place] [address] [place] [address] Referral ID Status Reason Start Date Expiration Date V isits Requested Visits Authorized [id number] Closed Specialty Service Requested 11/01/2023 05/03/2025 1 1 Reason for Visit * Diagnostic Test (Routine) - Closed Specialty Diagnoses / Procedures Referred By Contac t Referred To Contact Radiology Diagnoses Adenocarcinoma of endometrium Procedures IR Mediport Removal Jaida Bliss [facility] [place] [address] [place] [address] Referral ID Status Reason Start Date Expiration Date V isits Requested Visits Authorized [id number] Closed Specialty Service Requested 11/01/2023 05/03/2025 1 1 Encounter Details Date Type Department Care Team (Latest Contact Info) Description 11/19/2023 11:06 AM EDT - 11/19/2023 11:59 PM EDT Hospital Encounter Radiology at [facility] [place] [address] Jaida Bliss [address]N [facility] [place] [address] Adenocarcinoma of endometrium Discharge Disposition: Home Social [...] PM EDT documented as of this encounter Last Filed Vital Signs Vital Sign Reading Time Taken Comments Blood Pressure 170/80 11/19/2023 12:35 PM EDT Pulse 66 11/19/2023 12:35 PM EDT Temperature 36.4 ??C (97.6 ??F) 11/19/2023 12:35 PM E DT Respiratory Rate 18 11/19/2023 12:35 PM EDT Oxygen Saturation 91% 11/19/2023 12:35 PM EDT Inhaled Oxygen Concentration - - Weight - - Height - - Body Mass Index - - documented in this encounter Discharge Instructions * Discharge Instructions* Alba Brady RN - 11/19/2023 11:46 AM EDT [facility] Vascular and Interventional Radiology Discharge Instructions for your Chest Port Removal Activity: Relax for the next 24 hours Diet: Drink plenty of fluids. Resume your regular diet Bandage: There is a sterile dressing consisting of small gauze with a clear dressing (Tegaderm or IV 3000). This dressing should be left in place for 48 hours. If the clear dressing becomes loose youshould place tape over the edges to secure it in place. No tub baths, swimming or whirlpools for 1 week. No showering for 48 hours. Note: If you have steri-strips beneath your dressing, simply allow them to fall off. Do not peel them off. There may be [place]-garza (skin glue) also, allow this to flake off. Do not pick this off. Bathing: Do not take a shower until 48 hours after your port is removed; after this time you may shower with the dressing in place, then remove it and pat your skin dry. After 48 hours, we recommend that you cover the area with THE AQUA GUARD PROVIDED for 1 week while showering, facing away from the shower stream. You may use a bandaid to cover the site after the 48 hours are up if there is any drainage. No tub baths, whirlpools or swimming for one week following port removal. Pain: Apply ice bag to site (s) at 30 minute intervals (30 minutes on and 30 minutes off) for 24 hours?? . May use as needed for pain and/or bruising after 24 hours. When to call your healthcare provider: If you notice bleeding from the incision on your chest, you should lie flat and apply firm pressureover the site for 10-15 minutes, keeping the site covered and call your doctor. If you are still bleeding after 10-15 minutes, reapply pressure, and have someone drive you to the nearest Emergency Department, or call 911. If you develop pain, redness, drainage or swelling at or around chest incision site. If you develop a fever equal to or greater than 101 degrees Fahrenheit. When to call the Interventional Radiology Department: Please call with any questions or concerns. If it is during regular office hours, please call [phone]. If it is after regular office hours, or on weekends or holidays, please call [phone] and ask to speak to the Damaged Freight Inspector education intern for Interventional Radiology. You have received medication during your procedure to help lessen anxiety and keep you comfortable.These medications affect judgement and reaction time. We recommend that you do not drive, operate equipment, sign any important documents, or smoke unattended for 24 hours following your procedure. Because of the sedation, be careful on stairs, as you may be unsteady on your feet. You may resume your regular diet as tolerated. IV site -- slight redness, or tenderness is normal, you can use a warm compress. If tenderness and redness increases or foul drainage occurs, please contact your M. D. Revised 04/16/19 documented in this encounter Medications at Time of Discharge [...] mouth daily. documented as of this encounter Progress Notes * Guero To RN - 11/19/2023 11:59 PM EDT Follow up call completed for Geeta Sadler on 11/20/23. Patient states that they have no concerns or questions at this time and was encouraged to call IR Department should any question or concerns arise. * Alba Brady RN - 11/14/2023 7:11 AM EDT [facility]AB[facility] Name: Geeta Sadler Date of : 1965 AGE: 58 y.o. [address]: [address] [place] [address] Phone: [phone] (home) Mobile: Telephone Information: Referring Provider: Jaida Mcconnell REASON FOR VISIT: Order Questions Answers Where will study be performed? [facility] Radiology [120] To be scheduled Next available after expected date Reason for exam and clinical history: Mediport removal- h/o stage IIIc endometrial cancer, completed tx in 03/2022. Pt requests removal Is the patient on anticoagulant / antiplatelet therapy ? No Planned procedure: Mediport removal Labs to be performed day of procedure: No labs Sedation: No Sedation Prophylactic antibiotic : None Contrast: No contrast Additional medications for procedure: Lidocaine Planned access site: right chest Position: Supine Consent: Pending Medications to discontinue (and days held): None Case Urgency:: G2- Elective Outpatient intervention within 8-14 days Allergies Allergen Reactions Taxol [Paclitaxel] Received 53 cc of Taxol and c/o difficulty catching breath, chest pressure and lower abd pain. HSR kit used. See nurses note from 12/01/21 Pertinent PMH: Patient Active Problem List Diagnosis Code Hypertension I10 Obesity E66.9 Abnormal vaginal bleeding with endometrial thickness greater than 5 mm present on transvaginal ultrasound in postmenopausal patient N95.0, R93.89 Stenosis of right carotid artery greater than 50% I65.21 Adenocarcinoma of endometrium C54.1 Cigarette smoker F17.210 Post-operative state Z98.890 Stroke I63.9 Diabetes E11.9 Tobacco use disorder F17.200 Hypersensitivity reaction T78.40XA Date/Procedure Meds Given/Comments 11/24/21 Mediport Placement Fentanyl 150 mcg IV, Versed 3 mg IV, Zofran 4 mg IV. Tolerated procedurewell. 11/19/2023 Local only 1158 to procedure room 6 via stretcher. Pt remained on stretcher in supine position. Monitors applied.. Meds per protocol. Laboratory Results: Lab Results Component Value Date CREATININE 0.95 11/20/2022 Lab Results Component Value Date K 4.5 11/20/2022 Lab Results Component Value Date PLATELET 176 11/20/2022 documented in this encounter Plan of Treatment Not on file documented as of this encounter Procedures Procedure Name Priority Date/Time Associated Diagnosis Comments IR MEDIPORT REMOVAL Routine 11/19/2023 1 2:31 PM EDT Adenocarcinoma of endometrium documented in this encounter Results * IR Mediport Removal (11/19/2023 12:31 PM EDT) Anatomical Region Laterality Modality X-Ray Angiograph y Narrative 11/19/2023 2:09 PM EDT Interventional Radiology Procedure Note Procedure: Chest port explant Indication: Endometrial cancer, therapy complete, discontinue nursing home central venous access for chemotherapy Pre-procedure: Informed consent for the procedure including risks, benefits and alternatives was obtained. Active time-out was performed prior to the procedure. Maximum sterile barrier technique was used throughout the procedure. Sedation: None. Pulse, pressure, and oxygen saturation were continuously monitored. Technique: Local anesthetic was administered at the port site. A 2 cm transverse incision was made superior to the port. Catheter was removed from the vein via the subcutaneous tunnel. Hemostasis was achieved by applying direct pressure to the right neck. Blunt and sharp dissection used to remove, intact, the single-lumen port. Removal of the port reservoir, hub, and catheter were confirmed by their identification outside the patient. The wound was copiously irrigated with normal saline. The pocket was closed using a two-layer technique with 2-0 vicryl deep interrupted and 4-0 vicryl running subcuticular sutures. Skin closed with dermabond. Medications: Lidocaine 1% 10 mL subcut; lidocaine 2% with epinephrine 1:100,000 10 mL subcut Estimated blood loss: 1 mL Complications: No immediate Impression: En bloc explantation of single-lumen right subcutaneous venous port with all components accounted for. barn operator: ??Tin Jerry PA-C. Present during the intraservice time as documented by the interventional radiology nurse. Attending of record: Jared Broussard DO. I was not present. ?? 11/19/2023 Jaida Bliss APRN IMG IR ORDERABLES documented in this encounter Visit Diagnoses Diagnosis Adenocarcinoma of endometrium Malignant neoplasm of corpus uteri, except isthmus documented in this encounter Care Teams Packing Inspector Relationship Specialty Start Date End Date Pk Trevizo MD [address] [place] [address] PCP - General Emergency Medicine 05/02/21 documented as of this encounter
--- OUTSIDE RECORDS SUMMARY | 2024-04-14 12:54 | XMS_ITS | Encounter Summary ---
Author Organization [facility] [place] [address] Care Team Providers Care Sand [employer]inder Name Role Phone Pk Trevioz MD Primary Care Provider [phone] Reason for Referral * Diagnostic Test (Routine) - Closed Specialty Diagnoses / Procedures Referred By Kit saravia Referred To Contact Radiology Diagnoses Adenocarcinoma of endometrium Procedures IR Mediport Removal Jaida Bliss [facility] [place] [address] [place] [address] Referral ID Status Reason Start Date Expiration Date V isits Requested Visits Authorized [id number] Closed Specialty Service Requested 11/01/2023 05/03/2025 1 1 Reason for Visit * Reason Comments Follow-up Encounter Details Date Type Department Care Team (Late st Contact Info) Description 11/01/2023 10:40 AM EDT Office Visit [place] [address] Jaida Bliss [facility] [place] [address] Adenocarcinoma of endometrium Social History Tobacco Use [...] Sign Reading Time Taken Comments Blood Pressure 139/75 11/01/2023 11:00 AM EDT Pulse 75 11/01/2023 11:00 AM EDT Temperature 36.8 ??C (98.3 ??F) 11/01/2023 11:00 AM E DT Respiratory Rate 16 11/01/2023 11:00 AM EDT Oxygen Saturation 94% 11/01/2023 11:00 AM EDT Inhaled Oxygen Concentration - - Weight 140.4 kg (309 lb 8 oz) 11/01/2023 11:00 A M EDT Height 164 cm (5' 4.57) 11/01/2023 11:00 AM EDT Body Mass Index 52.2 11/01/2023 11:00 AM EDT documented in this encounter Progress Notes * Jaida Mcconnell APRN - 11/01/2023 10:40 AM EDT Division of Gynecologic Oncology [place] [id number] Gynecologic Oncology-Clinic Note Reason for visit: Surveillance visit, history of Stage IIIc, grade 3 (high-grade endometrioid) endometrial cancer Patient Active Problem List Diagnosis Code Hypertension I10 Obesity E66.9 Abnormal vaginal bleeding with endometrial thickness greater than 5 mm present on transvaginal ultrasound in postmenopausal patient N95.0, R93.89 Stenosis of right carotid artery greater than 50% I65.21 Adenocarcinoma of endometrium C54.1 Cigarette smoker F17.210 Post-operative state Z98.890 Stroke I63.9 Diabetes E11.9 Tobacco use disorder F17.200 Hypersensitivity reaction T78.40XA History of present illness: Geeta is a 58 y.o. who returns today for a surveillance visit for StageIIIc, grade 3 (high-grade endometrioid) endometrial cancer. On 10/17/2021, she underwent a total laparoscopic/robotic hysterectomy, BSO, omental biopsy, sentinel lymph node mapping and biopsy. The surgery was complicated by vascular injury to her left pelvic kidney while manipulating this area for lymphadenectomy. This was converted to a small laparotomy, initially evaluated by vascular surgery, then by urology, who performed a nephorrhaphy, and placed a stent. EBL at surgery was 700 mL, mostly related to the left pelvic kidney injury. Postoperatively, she did well, with no obvious remaining deficits to her kidney function, nor any leak. She received 6 cycles of paclitaxel/carboplatin, completing on 03/19/2022. Her posttreatment CT on 04/03/2022 showed some prominent aortic nodes, and follow-up imaging was recommended - repeat CT done on 11/20/2022 which was stable and had no evidence of recurrence. Today, she reports doing well gynecologically since her last visit. She is having regular bowel movements and is eating well. Her appetite and energy level is good. She denies fevers, chills, dysuria, unexpected weight loss, abdominal/pelvic pain, vaginal bleeding, blood in her stool, blood in her urine, nausea, vomiting, diarrhea or changes to her bowel or bladder function. She requests the removal of her mediport. She believes her port was last flushed in 10/2022. She reports a history of baseline neuropathy of her bilateral feet and diabetes for which she has not seen her PCP in a few years per report; she denies taking her previously prescribed DM medications. She plans to contact her PCP to re- establish care. Review of her PMH/PSH reveals no changes. Review of systems: 7 systems in total reviewed, otherwise negative. Vital signs: BP 139/75 (Patient Position: Sitting) Pulse 75 Temp 36.8 ??C (98.3 ??F) (Tympanic) Resp 16 Ht 164 cm (5' 4.57) Wt (!) 140.4 kg (309 lb 8 oz) SpO2 94% BMI 52.20 kg/m?? Physical examination: General: no acute distress HEENT: Pupils equal, no icterus. Abdomen: The abdomen is nontender, soft. Surgical scars present. There are no obvious hernias or palpable masses. Pelvic exam: Normal external genitalia, no lesions of the vulva, perineal body, or perianal area. Speculum examination demonstrates a slightly atrophic vagina, surgically absent cervix. Uterus and bilateral ovaries surgically absent. Pt declined bimanual and rectovaginal exam today. 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 This patient is very unlikely to have a germline MLH1 gene mutation. Surgical Pathology DIAGNOSIS A - Right pelvic sentinel lymph node, excision: One lymph node, negative for malignancy (0/1) B - Enlarged right obturator lymph node, excision: One lymph node, negative for malignancy (0/1) C - Uterus, cervix, bilateral fallopian tubes and bilateral ovaries with attached omentum, excision: - High-grade endometrioid adenocarcinoma, FIGO grade 3 with foci of squamous and mucinous differentiation, associated with marked necrosis; received fragmented, greatest size cannot be determined. (see Synoptic report below) - Tumor invades the uterine serosa and focally extends into adherent adipose tissue - Tumor involves one ovary by direct extension - Lymphovascular space invasion is present D - Left pelvic lymph node, excision: One lymph node, positive for malignancy (1/1) - Largest zoila deposit: 0.4 cm - Extra zoila extension: not identified Electronically signed by: Marcy Raza MD Verified: 11/01/2021 16:02 Pathologist Performed at: -[facility] Dept. of Pathology, [place], [place] SYNOPTIC Specimen Procedure: Total hysterectomy and bilateral salpingo-oophorectomy Specimen Integrity: fragmented Tumor Tumor Site: Endometrium; Lower uterine segment Tumor Size: Cannot be determined - fragmented Histologic Type: Endometrioid carcinoma, NOS Histologic Grade: FIGO grade 3 Two-Tier Grading System: High grade (FIGO 3) Myometrial Invasion: Present Depth of Myometrial Invasion: Cannot be determined - Fragmented Myometrial Thickness: Cannot be determined - fragmented Percentage of Myometrial Invasion: Estimated to be 50% or greater Adenomyosis: Not identified Uterine Serosa Involvement: Present Lower Uterine Segment Involvement: Present, myoinvasive Cervical Stromal Involvement: Not identified Other Tissue / Organ Involvement: Ovary (side not specified) Peritoneal / Ascitic Fluid: Not submitted / unknown Lymphovascular Invasion (LVI): Present - Extensive (greater than or equal to 3 vessel involvement) Regional Lymph Nodes Regional Lymph Node Status: Tumor present in pelvic lymph node(s) Total Number of Pelvic Nodes with Macrometastasis: 1 Number of Pelvic [place] Nodes with Macrometastasis: 0 Total Number of Pelvic Nodes with Micrometastasis: 0 Number of Pelvic [place] Nodes with Micrometastasis: 0 Laterality of Pelvic Node(s) with Tumor: Left non-sentinel Size of Largest Pelvic [place] Metastatic Deposit: 4 mm Lymph Nodes Examined Total Number of Pelvic Nodes Examined: 3 Number of Pelvic [place] Nodes Examined: 3 Total Number of Para-aortic Nodes Examined: 0 Distant Metastasis Distant Site(s) Involved: Omentum - focally present in omental adhesion Pathologic Stage Classification (pTNM, AJCC 8th Edition) pT Category: pT3a pN Category: pN1a FIGO Stage FIGO Stage: IIIC1 Additional Findings Additional Findings: None identified Tumor Block(s): C10 CAP [facility] May 2021 Release Impression/plan: Geeta is a 58 y.o. with a history of Stage IIIc, grade 3 (high- grade endometrioid)endometrial cancer. Today, there is no evidence of recurrent disease, based upon the lack of any concerning symptoms or findings on the visit today. Reviewed signs/symptoms of recurrence and surveillance guidelines. Order placed for mediport removal per pt request. Return in 3 months for surveillance or sooner as needed. Pt verbalized an understanding to all, questions addressed. H/o Diabetes Strongly recommended follow-up with PCP regarding DM. Reviewed importance of glucose management, potential assisted effects of diabetes and need to re- establish with PCP. Offered referral for PCP, pt declined and plans to contact previous office to re-establish care. Pt verbalized an understanding to all, questions addressed. Jaida Mcconnell APRN 11/01/23 * Lupe Santiago LNA - 11/01/2023 10:40 AM EDT Examination chaperoned by DOROTHY Mendoza. documented in this encounter Plan of Treatment Not on file documented as of this encounter Results * IR Mediport Removal (11/19/2023 12:31 PM EDT) Anatomical Region Laterality Modality X-Ray Angiograph y Narrative 11/19/2023 2:09 PM EDT Interventional Radiology Procedure Note Procedure: Chest port explant Indication: Endometrial cancer, therapy complete, discontinue [facility]iary central venous access for chemotherapy Pre-procedure: Informed [...] venous port with all components accounted for. bridge saw operator: ??Tin Jerry PA-C. Present during the [...] isthmus documented in this encounter Care Teams Sand Mill Grinder Relationship Specialty Start Date End Date Pk Trevizo MD [address] [place] [id number] PCP - General Emergency Medicine 05/02/21 documented as of this encounter
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
--- OUTSIDE RECORDS SUMMARY | 2024-04-14 12:54 | XMS_ITS ---
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 Two tissue fragments contain an adenocarcinoma showing a ??completely solid growth pattern comprised of tumor cells with moderate cytologic ??atypia and abundant eosinophilic to clear cytoplasm. Gland formation is not seen ??within areas of tumor. The tumor cells show a PAX8+, ER+, NH+, p53 wild-type, p16+ ??(nondiffuse) immunoprofile, most in keeping with an endometrioid carcinoma. Based ??on the solid growth, a FIGO grade 2-3 is favored; however, the fragments of tumor ??are small in this biopsy and may not be fully sales representative printing paper of the entire lesion. ??Definitive tumor classification and grading should be made upon evaluation of the ??entire lesion in a larger surgical specimen. Stenosis of right carotid artery greater than 50 % 09/15/2021 Hypertension Obesity Abnormal vaginal bleeding wi th endometrial thickness greater than 5 mm present on transvaginal ultrasound in postmenopausal patient Current Oncology Plans [facility]* Plan Start Date:03/19/2022 Plan Provider:Brian Vidales MD Linked Problems Adenocarcinoma of endometriu m Treatment Medications No medications scheduled. Past Plans ADULT TREATMENT Plan Name Start Date Discontinue Date Treatment Medications Discontinue Reason Plan Provider Cycles [facility] ONC ENDOMETRIAL CANCER - CARBOplatin / PACLitaxel 2 09/18/2022 CARBOplatin (Paraplatin) in 150 mL infusionPACLitaxeL (Taxol) in Non-PVC sodium chloride 0.9% 250 mL infusion Therapy Complete Brian Vidales MD 6 of 6 cycles started Radiation Treatments * No radiation treatments are documented for this patient in [facility]. Treatments may have been administered in another system. Lifetime Dose Tracking * Chemical Lifetime Dose Automatic Entry Manual Entr y DLP (Dose Length Product) 2,669 mGy-cm 2,669 mGy-cm 0 mGy-cm CTDI (CT Dose Index) Min 39.2 mGy 39.2 mGy 0 m Gy CTDI (CT Dose Index) Max 39.2 mGy 39.2 mGy 0 m Gy
--- OUTSIDE RECORDS SUMMARY | 2024-04-14 12:54 | XMS_ITS | Encounter Summary ---
[place] [address] Care Team Providers Care Vehicle Technician Name Role Phone Pk Trevizo MD Primary Care Provider [phone] Encounter Details Date Type Department Care Team (Latest Contact Info) Description 11/20/2022 Travel Social History Tobacco Use Types Packs/Day [...] on filedocumented in this encounter Care Teams Vehicle Technician Relationship Specialty Start Date End Date Pk Trevizo MD [address] [place] [address] PCP - General Emergency Medicine 05/02/21 documented as of this encounter
--- OUTSIDE RECORDS SUMMARY | 2024-04-14 12:54 | XMS_ITS | Encounter Summary ---
Author Organization [facility] Address [address] [place] [address] Care Team Providers Care Teacher'S Aide Name Role Phone None, Provider Primary Care Provider Unavailabl e Encounter Details Date Type Department Care Team (Late st Contact Info) Description 08/03/2021 Lab Requisition [facility] Pathology & Laboratory Medicine - [address] [address] Outr Resulting Lab, Provider Social History Tobacco Use Types Packs/Day Years [...] RNA BY PCR Routine 08/02/2021 14:40 EST documented in this encounter Results * HEPATITIS C AB W REFLEX TO HCV RNA BY PCR (08/02/2021 14:40 EST) Hep C Antibody Negative Negative 08/04/2021 11:22 EST [facility] Blood VENOUS BLOOD / Unknown 08/02/2021 14:40 EST 08/03/2021 17:25 EST Provider Outr Resulting Lab CHEMISTRY & BLOOD GAS ORDERABLES [facility] [address] [place] [address] documented in this encounter Visit Diagnoses Not on filedocumented in this encounter Care Teams Teacher'S Aide Relationship Specialty Start Date End Date None, Provider PCP - General 01/29/21 documented as of this encounter
--- OUTSIDE RECORDS SUMMARY | 2024-04-14 12:54 | XMS_ITS | Encounter Summary ---
Author Organization [facility] Address [address] [place] [address] Care Team Providers Care Paint Roller Winder Name Role Phone None, Provider Primary Care Provider Unavailabl e Encounter Details Date Type Department Care Team (Late st Contact Info) Description 08/03/2021 Lab Requisition [facility] Pathology & Laboratory Medicine - [address] [address] Outr Resulting Lab, Provider Social History Tobacco [...] Procedure Name Priority Date/Time Associated Diagnosis Comments HIV 1/2 ANTIGEN AND ANTIBODY, 4TH GENERATION Routine 08/02/2021 14:40 EST documented in this encounter Results * HIV 1/2 ANTIGEN AND ANTIBODY, 4TH GENERATION (08/02/2021 14:40 EST) HIV 1 and 2 Antibody/p24 Antigen, 4th Generation Negative Negative 08/04/2021 10:38 EST [facility] Comment:If acute HIV-1 infec tion is suspected in a high risk patient, submit plasma specimen for HIV-1 RNA quantitation test. Blood VENOUS BLOOD / Unknown 08/02/2021 14:40 EST 08/03/2021 17:25 EST Narrative [facility] - 08/04/2021 10:38 EST Fourth Generation assay performed on the Siemens Centaur XPT. Provider Outr Resulting Lab IMMUNOLOGY A ND SEROLOGY ORDERABLES Performing Organization Address City/State/[facility] Co de Phone Number [facility] [address] [place] [address] documented in this encounter Visit Diagnoses Not on filedocumented in this encounter Care Teams Paint Roller Winder Relationship Specialty Start Date End Date None, Provider PCP - General 01/29/21 documented as of this encounter
--- OUTSIDE RECORDS SUMMARY | 2024-04-14 12:54 | XMS_ITS | Encounter Summary ---
Author Organization [facility] Address [address] [place] [address] Care Team Providers Care High School Guidance Counselor Name Role Phone None, Provider Primary Care Provider Unavailabl e Encounter Details Date Type Department Care Team (Late st Contact Info) Description 02/06/2021 Lab Requisition [facility] Pathology & Laboratory Medicine - [facility] [address] [place] [address] Jayla Church [address] [place] [address] [place] [address] Encounter for other general examination Social History [...] Procedure Name Priority Date/Time Associated Diagnosis Comments PAP TEST Today 02/03/2021 9:00 EDT Encounter for other general examination HPV DNA DETECTION WITH GENOTYPING, PCR Today 02/03/2021 9:00 EDT Encounter for other general examination documented in this encounter Results * HUMAN PAPILLOMAVIRUS (HPV) DETECTION-HIGH RISK TYPES (02/03/2021 9:00 EDT) HPV other High Risk types, PCR Negative Negative 02/15/2021 7:32 EDT [facility] Comment:No E6 or E7 mRNA is detected from HPV types 16,18,31,33,35,39,45,51,52,56,58,59,66, and 68 by restoration officer mediated amplification. Papanicolaou smear specimen (specimen) CERVIX UTERI STRUCTURE / Unknown 02/03/2021 9:00 EDT 02/13/2021 12:40 EDT Jayla Church MICROBIOLOGY - GENER AL ORDERABLES [facility] [address] [place] [address] * PAP TEST (02/03/2021 9:00 EDT) Specimens A. Cervix and/or Endocervix , ThinPrep Imaging System with Manual Evaluation 02/15/2021 7:32 EDT [facility] Specimen Adequacy Satisfactory for Evaluation - assessment of transformation zone component not applicable ( e.g. atrophy, vaginal sample, hysterectomy) 02/15/2021 7:32 EDT [facility] General Categorization Negative for intraepithelial lesion or malignancy 02/15/2021 7:32 EDT [facility] Attestation . 02/15/2021 7:32 T [facility] at 0732 Clinical History See below 02/16/20 7:32 EDT [facility] HPV The result for the Human Papillomavirus (HPV) Detection-High Risk Types is Negative. No E6 or E7 mRNA is detected from HPV types 16,18,31,33,35,39 ,45,51,52,56,58,5 9,66, and 68 by restoration officer mediated amplification.Nina ting was performed on specimen [id number] and was resulted on 02/15/2021 0728 EDT by PRACHI, LAB INSTRUMENT RESULTS IN 02/15/2021 7:32 EDT [facility] Performing Lab [facility] 02/15/2021 7:32 EDT [facility] Scanned Images 02/15/2021 7:32 EDT [facility] Papanicolaou smear specimen (specimen) CERVIX UTERI STRUCTURE / Unknown 02/03/2021 9:00 EDT 02/06/2021 10:12 EDT Jayla Church PATHOLOGY ORDERABLES [facility] [address] [place] [address] documented in this encounter Visit Diagnoses Diagnosis Encounter for other general examination documented in this encounter Care Teams High School Guidance Counselor Relationship Specialty Start Date End Date None, Provider PCP - General 01/29/21 documented as of this encounter
--- OUTSIDE RECORDS SUMMARY | 2024-04-14 12:54 | XMS_ITS | Clinical Summary ---
Author Organization [facility] Address [facility] [place] [address] Care Team Providers Care Air Brush Artist Name Role Phone Pk Trevizo MD Primary Care Provider [phone] Allergies Active Allergy Reactions Criticality Noted Date Comments Paclitaxel 12/01/2021 Received 53 cc of Taxol and c/o difficulty catching breath, chest pressure and lower abd pain. HSR kit used. See nurses note from 12/01/21 Medications Medication Sig Dispensed Refills Start Date End Date Status aspirin 81 mg Tablet, Chewable Take 81 mg by mouth daily. Active atorvastatin (Lipitor) 80 mg Tablet Take 1 tablet by mouth every evening. 90 tablet 3 09/16/2021 Active Additional Information Patient not taking.Reported on 04/03/2022 acetaminophen (Tylenol) 325 mg Tablet Take 2 tablets by mouth every 6 hours as needed for Pain. 30 tablet 10/20/2021 Active polyethylene glycoL (Miralax) 17 gram Powder in Packet Take 17 g by mouth daily as needed. 14 each 2 10/20/2021 Active Additional Information Patient not taking.Reported on 11/06/2022 OneTouch Verio test strips StripIndications:di abetes mellitus 1 each by Other route 3 times daily. Use as instructed Indications: diabetes mellitus 300 each 3 10/20/2021 Active Additional Information Patient not taking.Reported on 04/03/2022 OneTouch Delica Lancets 30 gauge MiscIndications:carson betes mellitus 1 each by Other route 3 times daily. Indications: diabetes mellitus 300 each 3 10/20/2021 Active Additional Information Patient not taking.Reported on 04/03/2022 metFORMIN (Glucophage) 500 mg TabletIndications:T ype 2 diabetes mellitus with other specified complication, without long-term current use of insulin Take 1 tablet by mouth 2 times daily. 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 Based ??on the solid growth, a FIGO grade 2-3 is favored; however, the fragments of tumor ??are small in this biopsy and may not be fully technical sales representative of the entire lesion. ??Definitive tumor classification and grading should be made upon evaluation of the ??entire lesion in a larger surgical specimen. Stenosis of right carotid artery greater than 50 % 09/15/2021 Hypertension Obesity Abnormal vaginal bleeding wi th endometrial thickness greater than 5 mm present on transvaginal ultrasound in postmenopausal patient Social History Tobacco Use Types Packs/Day Years Used Date Smoking Tobacco: Every Day Cigarettes 1 20 Smokeless Tobacco: Never Tobacco Cessation:Ready to Q uit: No; Counseling Given: No Comments:varies to about 1-1.5 packs per day Alcohol Use Standard Drinks/Week Comments Never 0 (1 standard drink = 0.6 oz pur e alcohol) Sex and Gender Information Value Date Recorded Sex Assigned at Not on file Gender Identity Not on file Sexual Orientation Lesbian or Stark 11/06/2022 5: 13 PM EDT Last Filed Vital Signs Vital Sign Reading [...] Mass Index 52.2 11/01/2023 11:00 AM EDT Plan of Treatment Health Maintenance Due Date Last Done Comments CT Colonography 1964 Colonoscopy 1964 Colorectal Cancer Screening 1964 FIT DNA 1964 FIT 1964 Sigmoidoscopy (10 year) with FIT yearly 1964 Sigmoidoscopy 1964 Pneumococcal Vaccine: At-Ris k 5-64yrs (1 of 2 - PCV) 01/15/1970 DM Opthalmology Exam 01/15/1974 DM Urine Microalbumin yearly 01/15/1974 HIV screen 01/15/1982 Hepatitis C Screening 01/15/1982 Tetanus/Diphtheria/Pertussis Vaccines (1 - Tdap) 01/15/1983 HPV test 01/15/1994 PAP Smear 01/15/1994 Breast Cancer Share Decision Needed 2004 Breast Cancer screening 2004 Zoster vaccine (1 of 2) 01/15/2014 Advance Directive 01/15/2019 DM Hemoglobin A1c 6 month 08/26/2022 02/23/2022, DM Creatinine yearly 11/21/2023 11/20/2022, 03/19/2022, 12/22/2021, Additional history exists Covid-19 Vaccine (1 - 2022-2 4 season) 2024 Influenza (Flu) vaccine (1 o f 1 - Influenza standard series) 03/01/2024 Diabetes Screening (HgbA1C o r Glucose) Discontinued 11/20/2022, 03/19/2022, 02/23/2022, Additional history exists Medical Devices Implanted Type Area Cherry Dipper Device Identifier Shelf Expiration Date Model / Serial / Lot Graft Soft Tissue 0.8x8cm Square Bovine Xenosure ([id number]) - [id number] Implanted:Qt y: 1 on 09/15/2021 by Mickey Magallon MD at [facility] IMPLANTS Right: Carotid [employer] - [employer] [id number] 04/27/2027 E0.8P8 / / [id number] Explanted Type Area Cherry Dipper Device Identifier Shelf Expiration Date Model / Serial / Lot Stent Ureteral [id number] Set Dbl Pgtl Tpr Tip Ptfe Hyconi ([id number]) - [id number] Implanted:Qty : 1 on 10/17/2021 by Justice Cole MD at [facility] Explanted:Qty : 1 on 12/20/2021 by Justice Cole MD IMPLANTS Left: Ureter [employer]Support - Instant API [id number] 07/26/2024 [id number] / / [id number] Port Infusion 8fr Cath Power Injectable Lp 1lum Ct Ti ([id number] Implanted:Qty : 1 on 11/24/2021 by Tyler Villatoro MD Explanted:Qty : 1 on 11/19/2023 by Tin Jerry PA IMPLANTS Right: Chest Wall [employer] - CR BARD 12/28/2022 [id number] / [id number] / [id number] Procedures Procedure Name Priority Date/Time Associated Diagnosis Comments COMPREHENSIVE METABOLIC PANEL Routine 11/20/2022 10:18 AM EDT Adenocarcinoma of endometrium HC HEMOGLOBIN A1C Routine 02/23/2022 11: 15 AM EDT Type 2 diabetes mellitus with other specified complication, without long-term current use of insulin from Last 3 Months or Most Recently Relevant to Health Maintenance Results * (ABNORMAL) Comprehensive metabolic panel (non-fasting) (11/20/2022 10:18 AM EDT) Glucose 101 65 - 199 mg/dL [facility] Comment:Diabetes: >=200 mg/d L plus symptoms Blood Urea Nitrogen 15 8 - 18 mg/dL [facility] Creatinine 0.95 0.70 - 1.20 mg/dL [facility] Sodium 144 135 - 145 mmol/L [facility] Potassium 4.5 3.5 - 5.0 mmol/L [facility] Comment: Please note: ??Patients with WBC >100,000 may have falsely elevated Potassium levels. ??For accurate Potassium quantification in these patients send serum separator tube (gold top) for subsequent determinations. ??Contact the Clinical Chemistry Laboratory if there are any questions. Chloride 108(H) 98 - 107 mmol/L [facility] Carbon Dioxide 26 22 - 31 mmol/L [facility] Anion Gap 10 5 - 15 mmol/L [facility] Calcium 9.4 8.5 - 10.5 mg/dL [facility] Protein, Total 6.7 6.1 - 8.0 g/dL [facility] Albumin 3.9 3.2 - 5.2 g/dL [facility] Aspartate Aminotransferase 15 0 - 30 unit/L [facility] Alanine Aminotransferase 18 0 - 30 unit/L [facility] Alkaline Phosphatase 75 35 - 105 unit/L [facility] Bilirubin, Total <0.2(L) 0.2 - 1.3 mg/dL [facility] Est Glomerular Filtration Rate 69 >=60 mL/min/1. 73 m?? [facility] Comment: This patient's estimated GFR [...] In Lab Brian Vidales MD CHEMISTRY ORDERABLES [facility] [place] [address] * (ABNORMAL) Hemoglobin A1c (02/23/2022 11:15 AM EDT) Hemoglobin A1c 7.2(H) 4.3 - 5.6 % [facility] Comment: Reference Range: 4.3 - 5.6% 5.7 - 6.4% - Increased Risk of Developing Diabetes Mellitus >= 6.5% - Consistent with diagnosis of Diabetes Mellitus In the absence of hyperglycemia (i.e. plasma glucose > 200 mg/dL) or classic symptoms of hyperglycemia a repeat measurement of HbA1c should be performed on a separate sample to confirm the diagnosis. Diagnosis and Classification of Diabetes Mellitus, Diabetes Care 2013; 36: Suppl. 1, Z77-99 Estimated Average Glucose 159 mg/dL [facility] Comment: eAG equivalents for HbA1c percentages: HbA1c(%) ?eAG(mg/dL) 6.0 ?126 6.5 ?140 7.0 ?154 7.5 ?169 8.0 ?183 8.5 ?197 9.0 ?212 9.5 ?226 10.0 ? 240 Limitations: The eAG calculation has not been validated on women, individuals below 18 years old and above 70 years old, and individuals with hemoglobinopathies. Additional resources are available on the ADA website. Shahid GONZALEZ, Merritt J, Kaiser R, et al. ??Translating the A1C assay into estimated average glucose values. ??Diabetes Care 2008:31(8):3660-7766. Blood 02/23/2022 11:1 5 AM EDT 02/23/2022 11:20 AM EDT Narrative Resulting Agency Comment Spec In Lab Sarita Cyr FLEET ADMINISTRATOR CHEMISTRY ORDERABLES [facility] [place] [address] from Last 3 Months or Most Recently Relevant to Health Maintenance Advance Directives * Attempt Cardiopulmonary Resuscitation - Inpatient (Latest Code Status on File) Date Activated Date Inactivated Comments 11/19/2023 11:36 AM 11/20/2023 4:34 AM Question Answer Comments Code Status decision made by: Patient * Attempt Cardiopulmonary Resuscitation - Inpatient Date Activated Date Inactivated Comments 11/24/2021 1:39 PM 11/25/2021 4:38 AM Question Answer Comments Code Status decision made by: Patient * Attempt Cardiopulmonary Resuscitation - Inpatient Date Activated Date Inactivated Comments 10/17/2021 7:38 PM 10/20/2021 2:22 PM Question Answer Comments Code Status decision made by: Patient * Attempt Cardiopulmonary Resuscitation - Inpatient Date Activated Date Inactivated Comments 09/15/2021 5:13 PM 09/16/2021 4:10 PM Question Answer Comments Code Status decision made by: Patient * Attempt Cardiopulmonary Resuscitation - Inpatient Date Activated Date Inactivated Comments 09/15/2021 1:40 PM 09/15/2021 5:13 PM Question Answer Comments Code Status decision made by: Patient Care Teams Air Brush Artist Relationship Specialty Start Date End Date Pk Trevizo MD [address] [place] [address] PCP - General Emergency Medicine 05/02/21
--- OUTSIDE RECORDS SUMMARY | 2024-04-14 12:54 | XMS_ITS | Referral Summary ---
Author Organization [facility] Address [address] [place] [address] Care Team Providers Care Advertising Sales Representative Name Role Phone None, Provider Primary Care [...] - - Body Mass Index - - Functional Status Functional Status Response Date of Assess ment Are you deaf or do you have serious difficulty h earing? No 03/01/2023 Plan of Treatment Not on file Procedures Procedure Name Priority Date/Time Associated Diagnosis Comments HEPATITIS C AB W REFLEX TO HCV RNA BY PCR Routine 08/02/2021 14:40 EST from Last 3 Months or Most Recently Relevant to Health Maintenance Results * HEPATITIS C AB W REFLEX TO HCV RNA BY PCR (08/02/2021 14:40 EST) Hep C Antibody Negative Negative 08/04/2021 11:22 EST [facility] Blood VENOUS BLOOD / Unknown 08/02/2021 14:40 EST 08/03/2021 17:25 EST Provider Outr Resulting Lab CHEMISTRY & BLOOD GAS ORDERABLES [facility] [address] [place] [address] from Last 3 Months or Most Recently Relevant to Health Maintenance Care Teams Advertising Sales Representative Relationship Specialty Start Date End Date None, Provider PCP - General 01/29/21
--- OUTSIDE RECORDS SUMMARY | 2024-04-14 12:55 | XMS_ITS | Encounter Summary ---
Author Organization [facility] [place] [address] Care Team Providers Care Program Management Specialist Name Role Phone Pk Trevizo MD Primary Care Provider Encounter Details Date Type Department Care Team (Late st Contact Info) Description 02/02/2022 Orders Only [place] [address] Brian Vidales MD [facility] [place] [address] Social History Tobacco Use Types Packs/Day Years [...] on filedocumented in this encounter Care Teams Program Management Specialist Relationship Specialty Start Date End Date Pk Trevizo MD [address] [place] [address] PCP - General Emergency Medicine 05/02/21 documented as of this encounter
--- OUTSIDE RECORDS SUMMARY | 2024-04-14 12:55 | XMS_ITS | Encounter Summary ---
Author Organization [facility] [place] [address] Care Team Providers Care Floor Care Technician Name Role Phone Pk Trevizo MD Primary Care Provider [phone] Encounter Details Date Type Department Care Team (Late st Contact Info) Description 03/16/2022 Telephone Obstetrics [place] [phone] Rachel Claudio, RN Social History Tobacco Use Types Packs/Day [...] encounter Miscellaneous Notes * Telephone Encounter - Rachel Jaffe - 03/16/2022 3:33 PM EDT Called patient back regarding redrawing labs on Saturday prior to chemo. Patients platelet levels on 03.14 were 74, slightly below threshold for chemotherapy. Requested patient to get her labs redrawn on Saturday before appointment to ensure platelet levels have increased. Patient agrees to plan and verbalized understanding. documented in this encounter Plan of Treatment Not on file documented as of this encounter Visit Diagnoses Not on filedocumented in this encounter Care Teams Floor Care Technician Relationship Specialty Start Date End Date Pk Trevizo MD [address] [place] [address] PCP - General Emergency Medicine 05/02/21 documented as of this encounter
--- OUTSIDE RECORDS SUMMARY | 2024-04-14 12:55 | XMS_ITS | Encounter Summary ---
Author Organization Formerly [facility] Address [facility] [place] [address] Care Team Providers Care Cutter Plastics Rolls Name Role Phone Pk Trevizo MD Primary Care Provider [phone] Encounter Details Date Type Department Care Team (Latest Contact Info) Description 12/22/2021 8:15 AM EDT - 12/22/2021 8:24 AM EDT Hospital Encounter Hematology [place] [address] Adenocarcinoma of endometrium Discharge Disposition: Home Social [...] Sig Dispensed Refills Start Date End Date acetaminophen (Tylenol) 325 mg Tablet Take 2 tablets by mouth every 6 hours as needed for Pain. 30 tablet 10/20/2021 polyethylene glycoL (Miralax) 17 gram Powder in Packet Take 17 g by mouth daily as needed. 14 each 2 10/20/2021 OneTouch Verio test strips StripIndications:diabe hammad mellitus 1 each by Other route 3 times daily. Use as instructed Indications: diabetes mellitus 300 each 3 10/20/2021 OneTouch Delica Lancets 30 gauge MiscIndications:diabet es mellitus 1 each by Other route 3 times daily. Indications: diabetes mellitus 300 each 3 10/20/2021 atorvastatin (Lipitor) 80 mg Tablet Take 1 tablet by mouth every evening. 90 tablet 3 09/16/2021 aspirin 81 mg Tablet, Chewable Take 81 mg by mouth daily. dexAMETHasone (Decadron) 4 mg TabletIndications:Hype rsensitivity reaction, subsequent encounter Take 5 tablets (20 mg) the night before AND 5 tablets (20 mg) the morning of each upcoming dose of chemotherapy. Take with food. 50 tablet 12/05/2021 11/06/2022 famotidine (Pepcid) 20 mg TabletIndications:Hype rsensitivity reaction, subsequent encounter Take 1 tablet the night before AND 1 tablet the morning of each upcoming dose of chemotherapy. 10 tablet 12/05/2021 11/06/2022 diphenhydrAMINE (Benadryl) 25 mg CapsuleIndications:Hyp ersensitivity reaction, subsequent encounter Take 1 tablet the night before AND 1 tablet the morning of each upcoming dose of chemotherapy. 10 capsule 12/05/2021 11/06/2022 metFORMIN (Glucophage) 500 mg Tablet Take 500 mg by mouth 2 times daily. 11/01/2021 02/23/2022 Lantus Solostar U-100 Insulin 100 unit/mL (3 mL) pen INJECT 12 UNITS UNDER THE SKIN DAILY 10/21/2021 11/06/2022 prochlorperazine (Compazine) 10 mg TabletIndications:Hugo ocarcinoma of endometrium Take 1 tablet every 6-hours on schedule for 3-days after chemotherapy. Thereafter, may take 1 tablet every 6-hours as needed for nausea or vomiting. 60 tablet 3 11/24/2021 11/06/2022 ondansetron ODT (Zofran-ODT) 8 mg Tablet, Rapid DissolveIndications:Ad enocarcinoma of endometrium Take 1 tablet by mouth every 8 hours as needed for Nausea (Do NOT take in the first 72-hours after chemotherapy.). 20 tablet 3 11/24/2021 11/06/2022 lidocaine-prilocaine (EMLA) CreamIndications:Adeno carcinoma of endometrium Apply to skin over port site 1-hour prior to access for labs or chemotherapy. 30 g 11/24/2021 11/06/2022 OLANZapine (ZyPREXA) 5 mg TabletIndications:Chem otherapy induced nausea and vomiting Take 1 tablet at bedtime daily for 4 days after each dose of chemotherapy. 12 tablet 2 11/24/2021 11/06/2022 ibuprofen (Advil) 600 mg Tablet Take 1 tablet by mouth every 6 hours as needed for Pain. 40 tablet 3 10/20/2021 11/06/2022 oxyCODONE (Roxicodone) 5 mg Tablet Take 1 tablet by mouth every 4 hours as needed for Pain. 10 tablet 10/20/2021 03/19/2022 nicotine (Nicoderm CQ) 21 mg/24 hr Patch 24 hr Change 1 patch on the skin daily. 28 patch 09/16/2021 11/06/2022 nicotine (Nicotrol) 10 mg Cartridge Inhale into the lungs. 03/25/2021 11/06/2022 documented as of this encounter Plan of Treatment Not on file documented as of this encounter Procedures Procedure Name Priority Date/Time Associated Diagnosis Comments SCAN, PERIPHERAL BLOOD Routine 8:33 AM EDT HEMOGRAM Routine 12/22/2021 8:33 AM EDT Adenocarcinoma of endometrium DIFFERENTIAL, AUTOMATED Routine 12/22/2021 8:33 AM EDT Adenocarcinoma of endometrium HC CBC,PLT & AUTO DIFF Routine 8:33 AM EDT Adenocarcinoma of endometrium HC CANCER ANTIGEN 125 Routine 12/22/2021 8:33 AM EDT Adenocarcinoma of endometrium COMPREHENSIVE METABOLIC PANEL Routine 12/22/2021 8:33 AM EDT Adenocarcinoma of endometrium documented in this encounter Results * Scan, Peripheral Blood (12/22/2021 8:33 AM EDT) Plat estimate Normal [facility] RBC Morphology Abnormal [facility] Microcyte 1-5 /HPF [facility] Hypochromia Slight [facility] Blood 12/22/2021 8:33 AM EDT 12/22/2021 8:38 AM EDT Narrative Resulting Agency Comment Spec In Lab Brian Vidales MD HEMATOLOGY ORDERABLE S [facility] [place] [address] * (ABNORMAL) Differential, Automated (12/22/2021 8:33 AM EDT) Neutrophil % 92.0 % [facility] Neutrophil Absolute 10.83(H) 1.70 - 6.10 x10(3)/mc L [facility] Lymph % 7.1 % [facility] Lymphocytes Abs 0.8(L) 0.9 - 3.2 x10(3)/ L [facility] Monocyte % 0.4 % [facility] Monocyte Abs 0.0(L) 0.3 - 0.9 x10(3)/ L [facility] Eos % 0.0 % [facility] Eosinophils Abs 0.0 0.0 - 0.4 x10(3)/ L [facility] Basophil % 0.1 % [facility] Baso Absolute 0.0 0.0 - 0.1 x10(3)/ L [facility] Immature Gran % 0.40 % [facility] Comment: Immature granulocytes(IG's)percentage and absolute count will include metamyelocytes, myelocytes, and promyelocytes. Blood smears from CBCs yielding IG's will be scanned manually for concordance. If this scan disagrees with the automated IG or if promyelocytes are noted, a manual differential will be performed. Immature Gran Absolute 0.05(H) 0.00 - 0.04 x10(3)/ L [facility] Blood 12/22/2021 8:33 AM EDT 12/22/2021 8:38 AM EDT Narrative Resulting Agency Comment Spec In Lab Brian Vidales MD HEMATOLOGY ORDERABLE S [facility] [place] [address] * (ABNORMAL) Hemogram (12/22/2021 8:33 AM EDT) Pathologist [facility] White Blood Cell 11.8(H) 4.0 - 9.5 x10(3)/[facility] Red Blood Cell 4.05 4.00 - 5.21 x10(6)/[facility] Hemoglobin 10.0(L) 11.7 - 15.5 g/dL [facility] Hematocrit 32.5(L) 35.7 - 45.8 % [facility] Mean Cell Volume 80.2(L) 82.6 - 94.4 fL [facility] Mean Cell Hemoglobin 24.7(L) 27.1 - 32.0 pg [facility] Mean Cell Hemoglobin Concentration 30.8(L) 31.7 - 35.0 g/dL [facility] Platelet 260 145 - 357 x10(3)/[facility] RDW Standard Deviation 52.1(H) 37.0 - 46.0 [facility] RDW coefficient of variation 18.2(H) 11.5 - 14.1 % [facility] Mean Platelet Volume 11.1 7.6 - 12.9 fL [facility] NRBC% auto 0.0 % [facility] NRBC Absolute 0.000 0.000 - 0.000 x10(3)/[facility] Blood 12/22/2021 8:33 AM EDT 12/22/2021 8:38 AM EDT Narrative Resulting Agency Comment Spec In Lab Brian Vidales MD HEMATOLOGY ORDERABLE S [facility] [place] [place] [address] * Cancer Antigen 125 (12/22/2021 8:33 AM EDT) Pathologist [facility] CA 125 11.5 <=38.1 unit/mL [facility] Comment: CA 125 Reference Interval ??Postmenopausal: 6.2 to 31.5 U/mL. ??Premenopausal: 6.9 to 45.9 U/mL. ??Pre and Postmenopausal subjects combined: 6.4 to 38.1 U/mL. This result was generated using a Ian Gabino immunoassay. ??Results obtained from other methods or manufacturers cannot be used interchangeably with this method. Blood 12/22/2021 8:33 AM EDT 12/22/2021 8:38 AM EDT Narrative Resulting Agency Comment Spec In Lab Brian Vidales MD CHEMISTRY ORDERABLES [facility] [place] [address] * (ABNORMAL) Comprehensive metabolic panel (non-fasting) (12/22/2021 8:33 AM EDT) Glucose 463(H) 65 - 199 mg/dL [facility] Comment:Diabetes: >=200 mg/d L plus symptoms Blood Urea Nitrogen 21(H) 8 - 18 mg/dL [facility] Creatinine 0.88 0.70 - 1.20 mg/dL [facility] Sodium 133(L) 135 - 145 mmol/L [facility] Potassium 4.7 3.5 - 5.0 mmol/L [facility] Comment: Please note: ??Patients with WBC >100,000 may have falsely elevated Potassium levels. ??For accurate Potassium quantification in these patients send serum separator tube (gold top) for subsequent determinations. ??Contact the Clinical Chemistry Laboratory if there are any questions. Chloride 98 98 - 107 mmol/L [facility] Carbon Dioxide 20(L) 22 - 31 mmol/L [facility] Anion Gap 15 5 - 15 mmol/L [facility] Calcium 9.9 8.5 - 10.5 mg/dL [facility] Protein, Total 7.3 6.1 - 8.0 g/dL [facility] Albumin 4.2 3.2 - 5.2 g/dL [facility] Aspartate Aminotransferase 9 0 - 30 unit/L [facility] Alanine Aminotransferase 18 0 - 30 unit/L [facility] Alkaline Phosphatase 79 35 - 105 unit/L [facility] Bilirubin, Total <0.2(L) 0.2 - 1.3 mg/dL [facility] Est Glomerular Filtration Rate 77 >=60 mL/min/1. 73 m?? [facility] Comment: This patient's estimated GFR was [...] and symptoms in addition to eGFR. Blood 12/22/2021 8:33 AM EDT 12/22/2021 8:38 AM EDT Narrative Resulting Agency Comment Spec In Lab Brian Vidales MD CHEMISTRY ORDERABLES [facility] [place] [address] documented in this encounter Visit Diagnoses Diagnosis Adenocarcinoma of endometrium Malignant neoplasm of corpus uteri, except isthmus documented in this encounter Care Teams Cutter Plastics Rolls Relationship Specialty Start Date End Date Pk Trevizo MD [address] [place] [address] PCP - General Emergency Medicine 05/02/21 documented as of this encounter
--- OUTSIDE RECORDS SUMMARY | 2024-04-14 12:55 | XMS_ITS | Encounter Summary ---
[place] [address] Care Team Providers Care Gluing Machine Operator Name Role Phone Pk Trevizo MD Primary Care Provider [phone] Encounter Details Date Type Department Care Team ([facility] st Contact Info) Description 12/25/2021 11:30 AM EDT TH Visit (TeleHealth) [place] [address] Marcy Riojas, [facility] Endometrial cancer Social History Tobacco Use Types Packs/Day Years [...] PM EDT documented as of this encounter Progress Notes * Marcy Riojas [facility] - 12/25/2021 11:30 AM EDT Oncology Clinical Pharmacist Consultation: Cycle 2, Day 1 follow-up Visit Type: TO Patient ID: Geeta Sadler is a 56 y.o. female diagnosed with endometrial cancer who received cycle 2, day 1 of carboplatin + paclitaxel on 12/22. The pharmacist called today for a C2D1 check-in visit, but unfortunately the patient was unable to be reached / the voicemail box was full. Marcy Riojas RP 12/25/21 documented in this encounter Plan of Treatment Not on file documented as of this encounter Visit Diagnoses Diagnosis Endometrial cancer Malignant neoplasm of corpus uteri, except isthmus documented in this encounter Care Teams Gluing Machine Operator Relationship Specialty Start Date End Date Pk Trevizo MD [address] [place] [id number] PCP - General Emergency Medicine 05/02/21 documented as of this encounter
--- OUTSIDE RECORDS SUMMARY | 2024-04-14 12:55 | XMS_ITS | Encounter Summary ---
Author Organization [facility] [place] [address] Care Team Providers Care Marine Firefighter Name Role Phone Pk Trevizo MD Primary Care Provider Encounter Details Date Type Department Care Team (Late st Contact Info) Description 03/16/2022 Orders Only [place] [address] Brian Vidales MD [facility] [address] [place] [address] Social History Tobacco Use Types Packs/Day Years [...] on filedocumented in this encounter Care Teams Marine Firefighter Relationship Specialty Start Date End Date Pk Trevizo MD [address] [place] [address] PCP - General Emergency Medicine 05/02/21 documented as of this encounter
--- OUTSIDE RECORDS SUMMARY | 2024-04-14 12:55 | XMS_ITS | Encounter Summary ---
Author Organization [facility] [place] [address] Care Team Providers Care Customer Operations Specialist Name Role Phone Pk Trevizo MD Primary Care Provider [phone] Encounter Details Date Type Department Care Team (Late st Contact Info) Description 01/11/2022 Telephone Gynecology [place] [phone] Tiana Benz RN Social History Tobacco Use Types Packs/Day [...] encounter Miscellaneous Notes * Telephone Encounter - Tiana Benz RN - 01/11/2022 2:28 PM EDT Reviewed patient's labs. Called and informed her that they are within treatment parameters. Patientverbalized understanding. Denies any further questions at this time. documented in this encounter Plan of Treatment Not on file documented as of this encounter Visit Diagnoses Not on filedocumented in this encounter Care Teams Customer Operations Specialist Relationship Specialty Start Date End Date Pk Trevizo MD [address] [place] [address] PCP - General Emergency Medicine 05/02/21 documented as of this encounter
--- OUTSIDE RECORDS SUMMARY | 2024-04-14 12:55 | XMS_ITS | Encounter Summary ---
Author Organization [facility] [place] [address] Care Team Providers Care Button Breaker Name Role Phone Pk Trevizo MD Primary Care Provider [phone] Encounter Details Date Type Department Care Team (Late st Contact Info) Description 02/01/2022 Telephone Gynecology [place] [phone] Tiana Benz RN Social History Tobacco Use [...] Telephone Encounter - Tiana Benz RN - 02/01/2022 2:50 PM EDT Reviewed patient's labs. Called and informed her that they are within treatment parameters. Patientverbalized understanding. Denies any further questions at this time. documented in this encounter Plan of Treatment Not on file documented as of this encounter Visit Diagnoses Not on filedocumented in this encounter Care Teams Button Breaker Relationship Specialty Start Date End Date Pk Trevizo MD [address] [place] [address] PCP - General Emergency Medicine 05/02/21 documented as of this encounter
--- OUTSIDE RECORDS SUMMARY | 2024-04-14 12:55 | XMS_ITS | Encounter Summary ---
Author Organization [facility] [place] [address] Care Team Providers Care Insurance Healthcare Representative Name Role Phone Pk Trevizo MD Primary Care Provider [phone] Encounter Details Date Type Department Care Team (Late st Contact Info) Description 01/10/2022 Telephone [place] [phone] Tiana Benz RN Social History Tobacco Use [...] Telephone Encounter - Tiana Benz RN - 01/10/2022 3:26 PM EDT Called patient to remind her to have labs drawn. She states she will have these done tomorrow (01/11/22) at 9:20AM. documented in this encounter Plan of Treatment Not on file documented as of this encounter Visit Diagnoses Not on filedocumented in this encounter Care Teams Insurance Healthcare Representative Relationship Specialty Start Date End Date Pk Trevizo MD [address] [place] [address] PCP - General Emergency Medicine 05/02/21 documented as of this encounter
--- OUTSIDE RECORDS SUMMARY | 2024-04-14 12:55 | XMS_ITS | Encounter Summary ---
Author Organization [facility] [place] [address] Care Team Providers Care Electrician Supervisor Airplane Name Role Phone Pk Trevizo MD Primary Care Provider [phone] Encounter Details Date Type Department Care Team (Late st Contact Info) Description 02/22/2022 Orders Only [place] [address] Brian Vidales MD [facility] [place] [address] Social History Tobacco Use Types Packs/Day Years [...] on filedocumented in this encounter Care Teams Electrician Supervisor Airplane Relationship Specialty Start Date End Date Pk Trevizo MD [address] [place] [address] PCP - General Emergency Medicine 05/02/21 documented as of this encounter
--- OUTSIDE RECORDS SUMMARY | 2024-04-14 12:55 | XMS_ITS | Encounter Summary ---
Author Organization Formerly [facility] Address [facility] [place] [address] Care Team Providers Care Precipitator Operator Name Role Phone Pk Trevizo MD Primary Care Provider [phone] Encounter Details Date Type Department Care Team (Late st Contact Info) Description 02/02/2022 Notes Only Care Management [facility] [place] [phone] Senia Meyer, TYPE MAPPER Social History Tobacco Use Types Packs/Day Years [...] as of this encounter Progress Notes * Senia Meyer MSW - 02/02/2022 12:21 PM EDT Per referral from infusion suite nursing, I'm able to introduce myself in person to pt, Geeta, while she is here today for chemotherapy. I'm able to provide $25 gas card per her request, and to review with her other psychosocial needs for which I might provide assistance. Geeta reports that she previously worked at [employer] but has been unemployed for about a year now. She now receives SSDI at $1200 /mo. She currently rents a room and shared bathroom for $425 (utilities included) but does not have the privacy she seeks, and is interested in options for housing. When her son and daughter were younger they lived together in low income housing, but Geeta has not been connected to housing services/resources for some time. She is interested to perhaps speak with housing case management services to assess her options. I can offer to connect her with [facility] local to her, as they have services for navigating housing services/issues: [address] [place] [address] Geeta will be back for next/last chemotherapy on 02/23, and we plan to connect on that date to f/u and re-assess needs then. Completed today: Brief assessment Financial resources Community Resource Housing resources documented in this encounter Plan of Treatment Not on file documented as of this encounter Visit Diagnoses Not on filedocumented in this encounter Care Teams Precipitator Operator Relationship Specialty Start Date End Date Pk Trevizo MD [address] [place] [address] PCP - General Emergency Medicine 05/02/21 documented as of this encounter
--- OUTSIDE RECORDS SUMMARY | 2024-04-14 12:55 | XMS_ITS | Encounter Summary ---
Author Organization [facility]ly [facility] [place] [address] Care Team Providers Care Multiple Slide Operator Name Role Phone Pk Trevizo MD Primary Care Provider [phone] Encounter Details Date Type Department Care Team (Late st Contact Info) Description 01/12/2022 Orders Only [place] [address] Karuna Mccain MD [facility] [address] OBST[place] [address] Social History Tobacco Use Types Packs/Day Years [...] on filedocumented in this encounter Care Teams Multiple Slide Operator Relationship Specialty Start Date End Date Pk Trevizo MD [address] [place] [address] PCP - General Emergency Medicine 05/02/21 documented as of this encounter
--- OUTSIDE RECORDS SUMMARY | 2024-04-14 12:55 | XMS_ITS | Encounter Summary ---
Author Organization [facility] [place] [address] Care Team Providers Care Student Success Coach Name Role Phone Pk Trevizo MD Primary Care Provider [phone] Reason for Referral * Diagnostic Test (Routine) - Closed Specialty Diagnoses / Procedures Referred By Contac t Referred To Contact Radiology Diagnoses Adenocarcinoma of endometrium Procedures CT Chest Abdomen Pelvis w Contrast (Generic) Sarita Cyr APRN [facility] [place] [address] [facility] [place] [address] Referral ID Status Reason Start Date Expiration Date V isits Requested Visits Authorized [id number] Closed Specialty Service Requested 02/24/2022 08/27/2023 1 1 Reason for Visit * Diagnostic Test (Routine) - Closed Specialty Diagnoses / Procedures Referred By Contac t Referred To Contact Radiology Diagnoses Adenocarcinoma of endometrium Procedures CT Chest Abdomen Pelvis w Contrast (Generic) Sarita Cyr APRN [facility] [place] [address] [facility] [place] [address] Referral ID Status Reason Start Date Expiration Date V isits Requested Visits Authorized [id number] Closed Specialty Service Requested 02/24/2022 08/27/2023 1 1 Encounter Details Date Type Department Care Team (Latest Contact Info) Description 04/03/2022 10:49 AM EDT - 04/03/2022 11:59 PM EDT Hospital Encounter CT Scan at [facility] [place] [address] Sarita Cyr APRN [facility] [place] [address] Adenocarcinoma of endometrium Discharge Disposition: Home Social [...] Chewable Take 81 mg by mouth daily. psyllium (psyllium)Indications: Diarrhea, unspecified type Take 1 packet by mouth daily. 30 packet 5 02/23/2022 11/06/2022 loratadine (Claritin) 10 mg TabletIndications:Myal mckenna Take 1 tablet daily for 7 days after each cycle of chemotherapy. 14 tablet 02/23/2022 11/06/2022 dexAMETHasone (Decadron) 4 mg TabletIndications:Hype rsensitivity reaction, [...] dose of chemotherapy. 10 capsule 12/05/2021 11/06/2022 Lantus Solostar U-100 Insulin 100 unit/mL (3 [...] for Pain. 40 tablet 3 10/20/2021 11/06/2022 nicotine (Nicoderm CQ) 21 mg/24 hr Patch 24 hr Change 1 patch on the skin daily. 28 patch 09/16/2021 11/06/2022 nicotine (Nicotrol) 10 mg Cartridge Inhale into the lungs. 03/25/2021 11/06/2022 documented as of this encounter Plan of Treatment Not on file documented as of this encounter Procedures Procedure Name Priority Date/Time Associated Diagnosis Comments CT CHEST ABDOMEN PELVIS W CONTRAST (GENERIC) Routine 04/03/2022 1:09 PM EDT Adenocarcinoma of endometrium documented in this encounter Results * CT Chest Abdomen Pelvis w Contrast (Generic) (04/03/2022 1:09 PM EDT) Anatomical Region Laterality Modality Abdomen, Pelvis Computed Tomogra phy 04/03/2022 1:27 PM EDT Impressions 04/03/2022 3:22 PM EDT 1. ??Interval hysterectomy. ??No CT evidence of recurrent disease at the operative site. 2. ??Stable prominent left periaortic iliac and periaortic lymph nodes are indeterminant. ??Continued attention on follow-up is recommended. 3. ??No new sites of metastatic disease within the chest, abdomen, and pelvis. Thank you for letting us participate in the care of this patient. ??If you are a health care provider and have any questions regarding this report, please contact the number below. ??For patients who have questions please contact the health manager intensive care unit that requested your imaging first. ? Electronically signed by: Jared Broussard DO, [facility] ([phone]), at 04/03/2022 3:22 PM Narrative 04/03/2022 3:22 PM EDT EXAMINATION: CT CHEST ABDOMEN PELVIS W CONTRAST (GENERIC) CLINICAL HISTORY: 57-year-old female with uterine/cervical cancer. ??Assessment of treatment response. ??Stage III endometrial cancer. ??Status post 6 cycles of adjuvant therapy. ??Status post hysterectomy. ??Follow-up. ??Restaging. TECHNIQUE: Helical CT of the chest, abdomen, and pelvis was performed following the intravenous administration of contrast. Administered 120.0 ml of OMNIPAQUE 350.00 mg/ml. Oral contrast was administered. COMPARISON: Comparison is made to CT of the Chest, Abdomen, and Pelvis dated October 07, 2021 FINDINGS: Boat Carpenter Images: Noncontributory. CT OF THE CHEST: Pulmonary parenchyma: There is no focal pulmonary nodule or opacity. Airways: The central airways are patent. ??There is no endobronchial or endotracheal lesion. ??There are layering secretions within the left mainstem bronchus. Pleura: No pleural effusion or pneumothorax. Lymph nodes:There are no pathologically enlarged lymph nodes. Heart, pericardium, and great vessels: Cardiac size is within normal limits. There is physiologic pericardial fluid. ??The aorta is normal in course and caliber. ??There is a normal three-vessel aortic arch configuration. ??The pulmonary arteries are normal in course and caliber; there are no central intraluminal filling defects. ??There is a right internal jugular chest port with catheter tip at the cavoatrial junction. Other mediastinal structures: The mediastinal fat is preserved. ??Limited evaluation of the esophagus is unremarkable. Lower neck: Visualized structures within the inferior neck are within normal limits. Body wall soft tissues: Normal. Skeletal structures: As detailed below. CT OF THE ABDOMEN AND PELVIS: Liver: The liver is mildly diffusely hypoattenuating, consistent with hepatic steatosis. Bile ducts: Normal. Gallbladder: Normal. Pancreas: Normal. Spleen: Normal. Adrenals: Normal. Kidneys: There is a left pelvic kidney which is mildly atrophic as compared to the contralateral right, unchanged. ??There is a 5 mm hypoattenuating focus along the posterior upper pole the right kidney, too small to accurately characterize, but cyst. ??Presenting a tiny renal cyst. Urinary Bladder: Normal. Vasculature: The aorta is normal in course and caliber. ??The origin the mesenteric and renal arteries are within normal limits. ??The inferior vena cava is normal in course and caliber. ??The superior mesenteric, splenic, and portal veins are patent. ??The hepatic veins are patent. ??The renal veins are patent. Lymph Nodes: ??There are stable prominent left periaortic retroperitoneal lymph nodes, the larger of which is immediately left lateral to the left common iliac artery, with a short axis diameter of 11 mm, unchanged as compared to prior. There are no new pathologically enlarged lymph nodes. Bowel: Limited evaluation the distal esophagus is unremarkable. ??The stomach is partially distended. ??The duodenum is normal in course and caliber. ??The remainder of the small bowel is within normal limits. ??The ileocecal valve is within normal limits. ??The large bowel is within normal limits. Peritoneum and mesentery: No ascites, free air, or loculated fluid collection. No mesenteric inflammation. Abdominal wall: Normal. Reproductive organs: The uterus is surgically absent. ??There is no new nodularity or abnormal enhancement within the operative bed. Osseous structures: There are no suspicious osseous lesions. Procedure Note Jared Broussard, - 04/03/2022 EXAMINATION: CT CHEST ABDOMEN PELVIS W CONTRAST (GENERIC) CLINICAL HISTORY: 57-year-old female with uterine/cervical cancer.Assessment of treatment response. Stage III endometrial cancer. Status post 6cycles of adjuvant therapy. Status post hysterectomy. Follow-up. Restaging. TECHNIQUE: Helical CT of the chest, abdomen, and pelvis was performedfollowing the intravenous administration of contrast. Administered 120.0 ml ofOMNIPAQUE 350.00 mg/ml. Oral contrast was administered. COMPARISON: Comparison is made to CT of the Chest, Abdomen, and Pelvisdated October 07, 2021 FINDINGS: Boat Carpenter Images: Noncontributory. CT OF THE CHEST: Pulmonary parenchyma: There is no focal pulmonary nodule or opacity. Airways: The central airways are patent. There is no endobronchial or endotracheal lesion. There are layering secretions within the leftmainstem bronchus. Pleura: No pleural effusion or pneumothorax. Lymph nodes:There are no pathologically enlarged lymph nodes. Heart, pericardium, and great vessels: Cardiac size is within normallimits. There is physiologic pericardial fluid. The aorta is normal in courseand caliber. There is a normal three-vessel aortic arch configuration. The pulmonary arteries are normal in course and caliber; there are nocentral intraluminal filling defects. There is a right internal jugular chestport with catheter tip at the cavoatrial junction. Other mediastinal structures: The mediastinal fat is preserved. Limited evaluation of the esophagus is unremarkable. Lower neck: Visualized structures within the inferior neck are withinnormal limits. Body wall soft tissues: Normal. Skeletal structures: As detailed below. CT OF THE ABDOMEN AND PELVIS: Liver: The liver is mildly diffusely hypoattenuating, consistent withhepatic steatosis. Bile ducts: Normal. Gallbladder: Normal. Pancreas: Normal. Spleen: Normal. Adrenals: Normal. Kidneys: There is a left pelvic kidney which is mildly atrophic ascompared to the contralateral right, unchanged. There is a 5 mm hypoattenuating focusalong the posterior upper pole the right kidney, too small to accuratelycharacterize, but cyst. Presenting a tiny renal cyst. Urinary Bladder: Normal. Vasculature: The aorta is normal in course and caliber. The origin the mesenteric and renal arteries are within normal limits. The inferior venacava is normal in course and caliber. The superior mesenteric, splenic, andportal veins are patent. The hepatic veins are patent. The renal veins arepatent. Lymph Nodes: There are stable prominent left periaortic retroperitoneallymph nodes, the larger of which is immediately left lateral to the left commoniliac artery, with a short axis diameter of 11 mm, unchanged as compared toprior. There are no new pathologically enlarged lymph nodes. Bowel: Limited evaluation the distal esophagus is unremarkable. Thestomach is partially distended. The duodenum is normal in course and caliber. The remainder of the small bowel is within normal limits. The ileocecal valveis within normal limits. The large bowel is within normal limits. Peritoneum and mesentery: No ascites, free air, or loculated fluidcollection. No mesenteric inflammation. Abdominal wall: Normal. Reproductive organs: The uterus is surgically absent. There is no new nodularity or abnormal enhancement within the operative bed. Osseous structures: There are no suspicious osseous lesions. IMPRESSION 1. Interval hysterectomy. No CT evidence of recurrent disease at theoperative site. 2. Stable prominent left periaortic iliac and periaortic lymph nodesare indeterminant. Continued attention on follow-up is recommended. 3. No new sites of metastatic disease within the chest, abdomen, andpelvis. Thank you for letting us participate in the care of this patient. If youare a health care provider and have any questions regarding this report,please contact the number below. For patients who have questions please contactthe health manager intensive care unit that requested your imaging first. Electronically signed by: Jared Broussard DO, [facility]([phone]), at 04/03/2022 3:22 PM Sarita Coats Klarissa FUNERAL DIRECTOR/EMBALMER IMG CT ORDERABLES documented in this encounter [...] Oral, ONCE PRN, 1 dose, Starting on Sat04/03/22 at 1309, Until Sat04/03/22 at 1309, Per Protocol, Radiology Contrast, Routine Given 04/03/2022 1:09 PM EDT 900 mLs iohexoL (Omnipaque) (350 mg/mL) solution 0-200 mL 0-200 mL, Intravenous, ONCE PRN, 1 dose, Starting on 04/03/22 at 1309, Until 04/03/22 at 1309, Per Protocol, Warning Vesicant/Irritant Medication , Radiology Contrast, Routine Given 04/03/2022 1:09 PM EDT 120 mLs documented in this encounter Care Teams Student Success Coach Relationship Specialty Start Date End Date Pk Trevizo MD [address] [place] [address] PCP - General Emergency Medicine 05/02/21 documented as of this encounter
--- OUTSIDE RECORDS SUMMARY | 2024-04-14 12:55 | XMS_ITS | Encounter Summary ---
Author Organization [facility] [place] [address] Care Team Providers Care Bending Machine Set Up Operator Name Role Phone Pk Trevizo MD Primary Care Provider [phone] Encounter Details Date Type Department Care Team (Latest Contact Info) Description 03/19/2022 9:30 AM EDT - 03/19/2022 9:40 AM EDT Hospital Encounter Hematology [place] [address] Adenocarcinoma of endometrium (Primary Dx) Discharge Disposition: Home Social History Tobacco Use [...] 03/25/2021 11/06/2022 documented as of this encounter Progress Notes * Lester Beauchamp RN - 03/19/2022 9:56 AM EDT Access visit. See MAR and/or flowsheet. documented in this encounter Plan of Treatment Not on file documented as of this encounter Procedures Procedure Name Priority Date/Time Associated Diagnosis Comments SCAN, PERIPHERAL BLOOD Routine 9:59 AM EDT HEMOGRAM Routine 03/19/2022 9:59 AM EDT Adenocarcinoma of endometrium DIFFERENTIAL, AUTOMATED Routine 03/19/2022 9:59 AM EDT Adenocarcinoma of endometrium HC CBC,PLT & AUTO DIFF Routine 9:59 AM EDT Adenocarcinoma of endometrium HC CANCER ANTIGEN 125 Routine 03/19/2022 9:59 AM EDT Adenocarcinoma of endometrium COMPREHENSIVE METABOLIC PANEL Routine 03/19/2022 9:59 AM EDT Adenocarcinoma of endometrium documented in this encounter Results * Scan, Peripheral Blood (03/19/2022 9:59 AM EDT) Pathologist [facility] Plat estimate Decreased [facility] RBC Morphology Abnormal [facility] Macrocyte 1-5 /HPF [facility] Microcyte 1-5 /HPF [facility] Hypochromia Slight [facility] Polychromasia Present >5/HPF [facility] Ovalocytes 1-5 /HPF [facility] Plat, Giant Less than 1 /HPF [facility] Blood 03/19/2022 9:59 AM EDT 03/19/2022 9:59 AM EDT Narrative Resulting Agency Comment Spec In Lab Brian Vidales MD HEMATOLOGY ORDERABLE S Performing Organization Address City/State/[facility] Co de Phone Number [facility] [place] [address] * (ABNORMAL) Differential, Automated (03/19/2022 9:59 AM EDT) [facility] Neutrophil % 87.0 % [facility] Neutrophil Absolute 6.42(H) 1.70 - 6.10 x10(3)/mc L [facility] Lymph % 11.8 % [facility] Lymphocytes Abs 0.9 0.9 - 3.2 x10(3)/mc L [facility] Monocyte % 0.7 % [facility] Monocyte Abs 0.0(L) 0.3 - 0.9 x10(3)/mc L [facility] Eos % 0.0 % [facility] Eosinophils Abs 0.0 0.0 - 0.4 x10(3)/mc L [facility] Basophil % 0.0 % [facility] Baso Absolute 0.0 0.0 - 0.1 x10(3)/mc L [facility] Immature Gran % 0.50 % [facility] Comment: Immature granulocytes(IG's)percentage and absolute count will include metamyelocytes, myelocytes, and promyelocytes. Blood smears from CBCs yielding IG's will be scanned manually for concordance. If this scan disagrees with the automated IG or if promyelocytes are noted, a manual differential will be performed. Immature Gran Absolute 0.04 0.00 - 0.04 x10(3)/ L [facility] Blood 03/19/2022 9:59 AM EDT 03/19/2022 9:59 AM EDT Narrative Resulting Agency Comment Spec In Lab Brian Vidales MD HEMATOLOGY ORDERABLE S [facility] [place] [address] * (ABNORMAL) Hemogram (03/19/2022 9:59 AM EDT) White Blood Cell 7.4 4.0 - 9.5 x10(3)/[facility] Red Blood Cell 3.06(L) 4.00 - 5.21 x10(6)/ L [facility] Hemoglobin 9.5(L) 11.7 - 15.5 g/dL [facility] Hematocrit 27.4(L) 35.7 - 45.8 % [facility] Mean Cell Volume 89.5 82.6 - 94.4 fL [facility] Mean Cell Hemoglobin 31.0 27.1 - 32.0 pg [facility] Mean Cell Hemoglobin Concentration 34.7 31.7 - 35.0 g/dL [facility] Platelet 130(L) 145 - 357 x10(3)/ L [facility] RDW Standard Deviation 89.3(H) 37.0 - 46.0 fL [facility] RDW coefficient of variation 27.7(H) 11.5 - 14.1 % [facility] Mean Platelet Volume Not Measured 7.6 - 12.9 fL [facility] NRBC% auto 0.3 % [facility] NRBC Absolute 0.020(H) 0.000 - 0.000 x10(3)/mc L [facility] Blood 03/19/2022 9:59 AM EDT 03/19/2022 9:59 AM EDT Narrative Resulting Agency Comment Spec In Lab Brian Vidales MD HEMATOLOGY ORDERABLE S Performing Organization Address City/[facility] Co de Phone Number [facility] [place] [address] * Cancer Antigen 125 (03/19/2022 9:59 AM EDT) CA 125 8.8 <=38.1 unit/mL [facility] Comment: CA 125 Reference Interval ??Postmenopausal: 6.2 to 31.5 U/mL. ??Premenopausal: 6.9 to 45.9 U/mL. ??Pre and Postmenopausal subjects combined: 6.4 to 38.1 U/mL. This result was generated using a Ian Gabino immunoassay. ??Results obtained from other methods or manufacturers cannot be used interchangeably with this method. Blood 03/19/2022 9:59 AM EDT 03/19/2022 9:59 AM EDT Narrative Resulting Agency Comment Spec In Lab Brian Vidales MD CHEMISTRY ORDERABLES Performing Organization Address City/[facility]/ZIP Co de Phone Number [facility] [place] [address] * (ABNORMAL) Comprehensive metabolic panel (non-fasting) (03/19/2022 9:59 AM EDT) Glucose 288(H) 65 - 199 mg/dL [facility] Comment:Diabetes: >=200 mg/d L plus symptoms Blood Urea Nitrogen 24(H) 8 - 18 mg/dL [facility] Creatinine 0.94 0.70 - 1.20 mg/dL [facility] Sodium 138 135 - 145 mmol/L [facility] Potassium 4.2 3.5 - 5.0 mmol/L [facility] Comment: Please note: ??Patients with WBC >100,000 may have falsely elevated Potassium levels. ??For accurate Potassium quantification in these patients send serum separator tube (gold top) for subsequent determinations. ??Contact the Clinical Chemistry Laboratory if there are any questions. Chloride 103 98 - 107 mmol/L [facility] Carbon Dioxide 22 22 - 31 mmol/L [facility] Anion Gap 13 5 - 15 mmol/L [facility] Calcium 9.3 8.5 - 10.5 mg/dL [facility] Protein, Total 7.2 6.1 - 8.0 g/dL [facility] Albumin 4.4 3.2 - 5.2 g/dL [facility] Aspartate Aminotransferase 13 0 - 30 unit/L [facility] Alanine Aminotransferase 12 0 - 30 unit/L [facility] Alkaline Phosphatase 72 35 - 105 unit/L [facility] Bilirubin, Total 0.2 0.2 - 1.3 mg/dL [facility] Est Glomerular Filtration Rate 70 >=60 mL/min/1. 73 m?? [facility] Comment: This patient's estimated GFR [...] and symptoms in addition to eGFR. Blood 03/19/2022 9:59 AM EDT 03/19/2022 9:59 AM EDT Narrative Resulting Agency Comment Spec In Lab Brian Vidales MD CHEMISTRY ORDERABLES [facility] [place] [address] documented in this encounter Visit Diagnoses Diagnosis Adenocarcinoma of endometrium- Primary Malignant neoplasm of corpus uteri, except isthmus documented in this encounter Administered Medications Inactive Administered Medications - up to 3 most recent administrations Medication Order MAR Action Action Date Dose Rate Site sodium chloride 0.9 % (flush) (BD PosiFlush Normal Saline 0.9) flush 20 mL 20 mL, Intravenous, EVERY 1 MIN PRN, Starting on Sat03/19/22 at 0945, Until Sat03/20/22 at 0434, Health Insurance Specialist, Routine Given 03/19/2022 9:55 AM EDT 20 mLs documented in this encounter Care Teams Bending Machine Set Up Operator Relationship Specialty Start Date End Date Pk Trevizo MD [address] [place] [address] PCP - General Emergency Medicine 05/02/21 documented as of this encounter
--- OUTSIDE RECORDS SUMMARY | 2024-04-14 12:55 | XMS_ITS | Encounter Summary ---
Author Organization [facility] Address [facility] [place] [address] Care Team Providers Care Dispatcher Chief Oil Name Role Phone Pk Trevizo MD Primary Care Provider [phone] Reason for Visit * Treatment/Therapy Plan Authorization (Routine) - Closed Specialty Diagnoses / Procedures Referred By Contac t Referred To Contact Gynecology Oncology Diagnoses Adenocarcinoma of endometrium Procedures TC PALONOSETRON HCL, 25MCG, INJECTION (ALOXI) TC APREPITANT, 1 MG, INJECTION TC PACLITAXEL, 1MG, INJ TC CARBOPLATIN, 50MG, INJECTION (PARAPLATIN) Brian Vidales MD [facility] [place] [address] [facility] [employer] Document Rest[address] [place] [address] Referral ID Status Reason Start Date Expiration Date Visits Re quested Visits Authorized [id number] Closed 11/21/2021 11/21/2022 99 99 Encounter Details Date Type Department Care Team (Latest Contact Info) Description 12/22/2021 8:25 AM EDT - 12/22/2021 11:59 PM EDT Hospital Encounter Hematology [place] [address] Adenocarcinoma of endometrium Discharge Disposition: Home Social [...] Sign Reading Time Taken Comments Blood Pressure 148/78 12/22/2021 11:41 AM EDT Pulse - - Temperature - - Respiratory Rate - - Oxygen Saturation - - Inhaled Oxygen Concentration - - Weight - - Height - - Body Mass Index - - documented in this encounter Medications at Time of Discharge Medication Sig Dispensed Refills Start Date End Date acetaminophen (Tylenol) 325 mg Tablet Take 2 tablets by mouth every 6 hours as needed for Pain. 30 tablet 10/20/2021 polyethylene glycoL (Miralax) 17 gram Powder in Packet Take 17 g by mouth daily as needed. 14 each 2 10/20/2021 AsthmatrackerTouch Verio test strips StripIndications:diabe hammad mellitus 1 [...] as of this encounter Progress Notes * Chapis Cruz RN - 12/22/2021 1:28 PM EDT Patient Name: Geeta Sadler Patient Age: 56 y.o. Birthdate: 1965 Admit date: 12/22/2021 Attending Physician: No att. providers found Geeta Sadler, 56 y.o. female with diagnosis of adenocarcinoma of endometrium is here for chemotherapy infusion of Paclitaxel and Carboplatin. PROTOCOL: No CYCLE: 2 DAY: 1 S: Pt. offers no complaints at this time. Reviewed plan of care for infusion visit; patient verbalized understanding of plan as outlined. O: Chemotherapy orders independently verified for correct drug name, route and dosage per patient'sheight, weight and BSA by Chapis Cruz, DORENE and onsite pharmacist. Chemotherapy administered per hospital policy. REACTIONS (DESCRIPTION, TIME, INTERVENTION AND EFFECTIVENESS) None reported. A: Pt. Tolerated treatment well. Geeta Sadler confirms that all questions and issues have been addressed. P: Return to clinic as scheduled. documented in this encounter Plan of Treatment Not on file documented as of this encounter Visit Diagnoses Diagnosis Adenocarcinoma of endometrium Malignant neoplasm of corpus uteri, except isthmus documented in this encounter Administered Medications Inactive Administered Medications - up to 3 most recent administrations Medication Order MAR Action Action Date Dose Rate Site aprepitant (CINVANTI) injection Emul 130 mg 130 mg, Intravenous, Administer over 2 Minutes, ONCE, 1 dose, On Sat12/22/21 at 1030, Alternative administration of IV push over 2 minutes is a recommendation from the metal products viewer. Administer prior to chemotherapy., Routine Given 12/22/2021 11:20 AM EDT 130 mg CARBOplatin (Paraplatin) 693 mg in dextrose 5% 319.3 mL infusion 693 mg (Target AUC = 5), Intravenous, ONCE, 1 dose, On Sat12/22/21 at 1430, Administer over 30 Minutes, Warning Vesicant/Irritant Medication New Bag 12/22/2021 3:51 PM EDT 693 mg 638.6 mL/hr dexAMETHasone (Decadron) 20 mg in sodium chloride 0.9% 50 mL infusion 20 mg, Intravenous, ONCE, 1 dose, On Sat12/22/21 at 1030, Administer over 10 Minutes, Administer 30 minutes prior to PACLitaxel New Bag 12/22/2021 11:24 AM EDT 20 mg 300 mL/hr diphenhydrAMINE (Benadryl) capsule 50 mg 50 mg, Oral, ONCE, 1 dose, On Sat12/22/21 at 1030, Administer 30 minutes prior to PACLitaxel, Routine Given 12/22/2021 11:15 AM EDT 50 mg famotidine (Pepcid) (10 mg/mL) injection 20 mg 20 mg, Intravenous, ONCE, 1 dose, On Sat12/22/21 at 1030, Administer 30 minutes prior to PACLitaxel Given 12/22/2021 11:17 AM EDT 20 mg heparin (pf) (porcine) (100 units/mL) flush 5 mL syringe 500 Units 500 Units, Intravenous, ONCE PRN, Starting on Sat12/22/21 at 1001, Until 12/23/21 at 0438, Line Care, Refer to Intravenous (IV) Procedure: Accessing Implanted Vascular Access Devices (105) procedure and/or Intravenous (IV) Job Aid: Adult Flushing & Catheter Care (7719) job aid for additional information regarding guidelines and administration., Routine Given 12/22/2021 4:27 PM EDT 500 Units PACLitaxeL (Taxol) 378 mg in sodium chloride 0.9% Non-PVC 563 mL infusion 378 mg (175 mg/m2/dose ? 2.16 m2 Treatment Plan BSA from Recorded weight), Intravenous, ONCE, 1 dose, On Sat12/22/21 at 1130, Administer over 3 Hours, Warning Vesicant/Irritant Medication Rate/Dose Change 12/22/2021 12:33 PM EDT 187.7 mL/hr New Bag 12/22/2021 12:12 PM EDT 378 mg 94 mL/hr palonosetron (Aloxi) (0.05 mg/mL) injection 0.25 mg 0.25 mg, Intravenous, ONCE, 1 dose, On Sat12/22/21 at 1030, Administer over 30 seconds., Routine Given 12/22/2021 11:16 AM EDT 0.25 mg sodium chloride 0.9 % (flush) (BD PosiFlush Normal Saline 0.9) flush 5-20 mL 5-20 mL, Intravenous, EVERY 1 MIN PRN, Starting on Sat12/22/21 at 1001, Until 12/23/21 at 0438, Line Care, Flush pertains to all indwelling lines. Flush per protocol found in the job aid using the link provided on this medication record. Refer to Intravenous (IV) Job Aid: Adult Flushing & Catheter Care (9711) job aid for additional information regarding guidelines and administration., Routine Given 12/22/2021 4:27 PM EDT 20 m Ls documented in this encounter Care Teams Dispatcher Chief Oil Relationship Specialty Start Date End Date Pk Trevizo MD [address] [place] [id number] PCP - General Emergency Medicine 05/02/21 documented as of this encounter
--- OUTSIDE RECORDS SUMMARY | 2024-04-14 12:55 | XMS_ITS | Encounter Summary ---
Author Organization [facility] Address [facility] [place] [address] Care Team Providers Care Senior Hr Manager Name Role Phone Pk Trevizo MD Primary Care Provider [phone] Reason for Visit * Treatment/Therapy Plan Authorization (Routine) - Closed Specialty Diagnoses / Procedures Referred By Contac t Referred To Contact Gynecology Oncology Diagnoses Adenocarcinoma of endometrium Procedures TC PALONOSETRON HCL, 25MCG, INJECTION (ALOXI) TC APREPITANT, 1 MG, INJECTION TC PACLITAXEL, 1MG, INJ TC CARBOPLATIN, 50MG, INJECTION (PARAPLATIN) Brian Vidales MD [facility] [place] [address] [facility] Super[facility] [address] [place] [address] Referral ID Status Reason Start Date Expiration Date Visits Re quested Visits Authorized [id number] Closed 11/21/2021 11/21/2022 99 99 Encounter Details Date Type Department Care Team (Latest Contact Info) Description 02/23/2022 9:34 AM EDT - 02/23/2022 11:59 PM EDT Hospital Encounter Hematology [place] [address] Type 2 diabetes mellitus with other specified complication, without long-term current use of insulin; Adenocarcinoma of endometrium Discharge Disposition: Home Social [...] as of this encounter Progress Notes * Rea Baugh, RN - 02/23/2022 4:32 PM EDT Patient Name: Geeta Sadler Patient Age: 57 y.o. Birthdate: 1965 Admit date: 02/23/2022 Attending Physician: May att. providers found TIME TREATMENT STARTED: 1100 TIME TREATMENT ENDED: 1700 Geeta Sadler, 57 y.o. female with diagnosis of endometrial cancer is here for chemotherapy infusion of taxol/carbo. CYCLE: 5 DAY: 1 S: Pt. offers no complaints at this time. O: Chemotherapy orders independently verified for correct drug name, route and dosage per patient'sheight, weight and BSA by Kiera CATHERINE and onsite pharmacist REACTIONS (DESCRIPTION, TIME, INTERVENTION AND EFFECTIVENESS) none A: Pt. Tolerated treatment well. Geeta Sadler confirms that all questions and issues have been addressed. P: Return to clinic per routine. documented in this encounter Plan of Treatment Not on file documented as of this encounter Procedures Procedure Name Priority Date/Time Associated Diagnosis Comments HC HEMOGLOBIN A1C Routine 02/23/2022 11: 15 AM EDT Type 2 diabetes mellitus with other specified complication, without long-term current use of insulin documented in this encounter Results * (ABNORMAL) Hemoglobin A1c (02/23/2022 11:15 AM EDT) Hemoglobin A1c 7.2(H) 4.3 - 5.6 % [facility] Comment: Reference Range: 4.3 - 5.6% [...] Mellitus, Diabetes Care 2013; 36: Suppl. 1, H42-23 Estimated Average Glucose 159 mg/dL [facility] Comment: eAG equivalents for HbA1c percentages: [...] into estimated average glucose values. ??Diabetes Care 2008:31(8):1408-8934. Blood 02/23/2022 11:1 5 AM EDT 02/23/2022 11:20 AM EDT Narrative Resulting Agency Comment Spec In Lab Sarita Cyr APRN CHEMISTRY ORDERABLES [facility] [place] [address] documented in this encounter Visit Diagnoses Diagnosis Type 2 diabetes mellitus with other specified complication, without long-term current use of insulin Adenocarcinoma of endometrium Malignant neoplasm of corpus uteri, except isthmus documented in this encounter Administered Medications Inactive Administered Medications - up to 3 most recent administrations Medication Order MAR Action Action Date Dose Rate Site aprepitant (CINVANTI) injection Emul 130 mg 130 mg, Intravenous, Administer over 2 Minutes, ONCE, 1 dose, On Sat02/23/22 at 1100, Alternative administration of IV push over 2 minutes is a recommendation from the technical documentation specialist. Administer prior to chemotherapy., Routine Given 02/23/2022 11:47 AM EDT 130 mg CARBOplatin (Paraplatin) 742 mg in dextrose 5% 324.2 mL infusion 742 mg (Target AUC = 5), Intravenous, ONCE, 1 dose, On Sat02/23/22 at 1500, Administer over 30 Minutes, Warning Vesicant/Irritant Medication New Bag 02/23/2022 4:27 PM EDT 742 mg 648.4 mL/hr dexAMETHasone (Decadron) 20 mg in sodium chloride 0.9% 50 mL infusion 20 mg, Intravenous, ONCE, 1 dose, On Sat02/23/22 at 1100, Administer over 10 Minutes, Administer 30 minutes prior to PACLitaxel New Bag 02/23/2022 11:51 AM EDT 20 mg 300 mL/hr diphenhydrAMINE (Benadryl) capsule 50 mg 50 mg, Oral, ONCE, 1 dose, On Sat02/23/22 at 1100, Administer 30 minutes prior to PACLitaxel, Routine Given 02/23/2022 11:42 AM EDT 50 mg famotidine (Pepcid) (10 mg/mL) injection 20 mg 20 mg, Intravenous, ONCE, 1 dose, On Sat02/23/22 at 1100, Administer 30 minutes prior to PACLitaxel Given 02/23/2022 11:43 AM EDT 20 mg heparin (pf) (porcine) (100 units/mL) flush 5 mL syringe 500 Units 500 Units, Intravenous, ONCE PRN, Starting on Sat02/23/22 at 1041, Until 02/24/22 at 0433, Line Care, Refer to Intravenous (IV) Procedure: Accessing Implanted Vascular Access Devices (724) procedure and/or Intravenous (IV) Job Aid: Adult Flushing & Catheter Care (7878) job aid for additional information regarding guidelines and administration., Routine Given 02/23/2022 5:05 PM EDT 500 Units PACLitaxeL (Taxol) 378 mg in sodium chloride 0.9% Non-PVC 563 mL infusion 378 mg (175 mg/m2/dose ? 2.16 m2 Treatment Plan BSA from Recorded weight), Intravenous, ONCE, 1 dose, On Sat02/23/22 at 1200, Administer over 3 Hours, Warning Vesicant/Irritant Medication New Bag 02/23/2022 12:37 PM EDT 378 mg 187.7 mL/hr palonosetron (Aloxi) (0.05 mg/mL) injection 0.25 mg 0.25 mg, Intravenous, ONCE, 1 dose, On Sat02/23/22 at 1100, Administer over 30 seconds., Routine Given 02/23/2022 11:45 AM EDT 0.25 mg documented in this encounter Care Teams Senior Hr Manager Relationship Specialty Start Date End Date Pk Trevizo MD [address] [place] [address] PCP - General Emergency Medicine 05/02/21 documented as of this encounter
--- OUTSIDE RECORDS SUMMARY | 2024-04-14 12:55 | XMS_ITS | Encounter Summary ---
Author Organization [facility] [place] [address] Care Team Providers Care Syrup Filterer Name Role Phone Pk Trevizo MD Primary Care Provider [phone] Encounter Details Date Type Department Care Team (Late st Contact Info) Description 02/26/2022 Telephone [place] [phone] Roslyn Gandhi Social History Tobacco Use Types Packs/Day Years [...] on filedocumented in this encounter Care Teams Syrup Filterer Relationship Specialty Start Date End Date Pk Trevizo MD [address] [place] [address] PCP - General Emergency Medicine 05/02/21 documented as of this encounter
--- OUTSIDE RECORDS SUMMARY | 2024-04-14 12:55 | XMS_ITS | Encounter Summary ---
Author Organization [facility] [place] [address] Care Team Providers Care Ice Grinder Name Role Phone Pk Trevizo MD Primary Care Provider [phone] Encounter Details Date Type Department Care Team (Latest Contact Info) Description 03/19/2022 10:40 AM EDT Office Visit Gynecology [place] [id number] Sarita Cyr CAR MECHANIC [facility] [place] [address] Adenocarcinoma of endometrium; Type 2 diabetes mellitus with other specified complication, without long-term current use of insulin; Tobacco use disorder Social History Tobacco Use Types Packs/Day Years [...] Sign Reading Time Taken Comments Blood Pressure 135/86 03/19/2022 10:46 AM EDT Pulse 95 03/19/2022 10:46 AM EDT Temperature 36.3 ??C (97.3 ??F) 03/19/2022 1 0:46 AM EDT Respiratory Rate 16 03/19/2022 10:4 6 AM EDT Oxygen Saturation 99% 03/19/2022 10: 46 AM EDT Inhaled Oxygen Concentration - - Weight 105.5 kg (232 lb 9.4 oz) 022 10:46 AM EDT Height 164 cm (5' 4.57) 03/19/2022 10: 46 AM EDT Body Mass Index 39.23 03/19/2022 10:46 AM EDT documented in this encounter Progress Notes * Sarita Cyr APRN - 03/19/2022 10:40 AM EDT Division [place] [address] Reason for visit: Cycle #6 adjuvant chemotherapy Established Patient Patient Active Problem List Diagnosis Code ??? Hypertension I10 ??? Obesity E66.9 ??? Abnormal vaginal bleeding with endometrial thickness greater than 5 mm present on transvaginal ultrasound in postmenopausal patient N95.0, R93.89 ??? Stenosis of right carotid artery greater than 50% I65.21 ??? Adenocarcinoma of endometrium C54.1 ??? Cigarette smoker F17.210 ??? Post-operative state Z98.890 ??? Stroke I63.9 ??? Diabetes E11.9 ??? Tobacco use disorder F17.200 ??? Hypersensitivity reaction T78.40XA Prior to Admission medications Medication Sig Start Date End Date Taking? Authorizing Provider OneTouch Verio test strips Strip 1 each by Other route 3 times daily. Use as instructed Indications: diabetes mellitus 10/20/21 Yes Alyson Bailey MD OneTouch Delica Lancets 30 gauge Misc 1 each by Other route 3 times daily. Indications: diabetes mellitus 10/20/21 Yes Alyson Bailey MD acetaminophen (Tylenol) 325 mg Tablet Take 2 tablets by mouth every 6 hours as needed for Pain. 10/20/21 Alyson Bailey MD ibuprofen (Advil) 600 mg Tablet Take 1 tablet by mouth every 6 hours as needed for Pain. 10/20/21 Alyson Bailey MD polyethylene glycoL (Miralax) 17 gram Powder in Packet Take 17 g by mouth daily as needed. Patient not taking: Reported on 11/13/2021 10/20/21 Alyson Bailey MD nicotine (Nicoderm CQ) 21 mg/24 hr Patch 24 hr Change 1 patch on the skin daily. Patient not taking: Reported on 11/13/2021 09/16/21 Sara Barron APRN atorvastatin (Lipitor) 80 mg Tablet Take 1 tablet by mouth every evening. 09/16/21 Sara Barron APRN aspirin 81 mg Tablet, Chewable Take 81 mg by mouth daily. PROVIDER, HISTORICAL nicotine (Nicotrol) 10 mg Cartridge Inhale into the lungs. 03/25/21 PROVIDER, HISTORICAL History of present illness: Geeta is a very nice 57 y.o. woman who returns today with her daughter,Yvrose, and granddaughter to continue chemotherapy for her FIGO stage IIIc, grade 3 (high-grade endometrioid) endometrial cancer. 10/17/2021, she underwent a total laparoscopic/robotic hysterectomy, [...] to her kidney function, nor any leak. Interval History Today, Geeta endorses fatigue. She reports an excellent appetite and states she thinks she is gaining weight. Denied any CINV after last cycle of chemotherapy and is using prochlorperazine for 3 dayson schedule without need for breakthrough antiemetic. She reports her stools vacillate between loose to formed and has not initiated Metamucil. Reports myalgias beginning on Day 3 of the cycle and has not tried loratadine. Upon questioning, she denies making an appointment for follow-up with her primary care physician to manage her known oncologic diagnoses including diabetes. Review of systems: 10 systems in total reviewed, otherwise negative. Objective ECOG Performance Status: 1 Vital signs: Vital Signs Temp: 36.3 ??C (97.3 ??F) Temp src: Temporal Heart Rate: 95 Heart Rate Source: SaO2, Right Resp: 16 BP: 135/86 BP Location: Right arm Patient Position: Sitting SpO2: 99 % Physical examination: General: She moves easily to and from the exam room without obvious limitation. Wig in place. NAD. HEENT: Alopecia, pupils equal, no icterus. Mouth without lesions or signs of mucositis. Neck supple. No appreciable thyromegaly or supraclavicular lymphadenopathy. Cardiac: RRR. Respiratory: Lungs CTA bilaterally with equal breath sounds to bases. Abdomen: Obese, soft, non-tender. No appreciable mass or hepatomegaly. Body habitus limits exam. Pelvic exam: Deferred. Extremities: Symmetric, no edema. Pathology: 10/18/2021 Molecular Genetics RESULTS MLH1 Promoter [...] MD Verified: 11/01/2021 16:02 Pathologist Performed at: -[facility] Dept. of Pathology, [place], [place] SYNOPTIC Specimen Procedure: Total hysterectomy and [...] Nodes with Macrometastasis: 1 Number of Pelvic [place] Nodes with Macrometastasis: 0 Total Number of Pelvic Nodes with Micrometastasis: 0 Number of Pelvic [place] Nodes with Micrometastasis: 0 Laterality of Pelvic Node(s) with Tumor: Left non-sentinel Size of Largest Pelvic [place] Metastatic Deposit: 4 mm Lymph Nodes Examined Total Number of Pelvic Nodes Examined: 3 Number of Pelvic [place] Nodes Examined: 3 Total Number of Para-aortic Nodes Examined: 0 Distant Metastasis Distant Site(s) Involved: Omentum - focally present in omental adhesion Pathologic Stage Classification (pTNM, AJCC 8th Edition) pT Category: pT3a pN Category: pN1a FIGO Stage FIGO Stage: IIIC1 Additional Findings Additional Findings: None identified Tumor Block(s): C10 CAP [facility] May 2021 Release Laboratory studies: Adequate for treatment today. Latest Reference Range & Units 02/23/22 11:15 Hemoglobin A1C 4.3 - 5.6 % 7.2 (H) Est Avg Gluc mg/dL 159 (H): Data is abnormally high Latest Reference Range & Units 03/19/22 09:59 WBC 4.0 - 9.5 x10(3)/mcL 7.4 RBC 4.00 - 5.21 x10(6)/mcL 3.06 (L) Hemoglobin 11.7 - 15.5 g/dL 9.5 (L) Hematocrit 35.7 - 45.8 % 27.4 (L) MCV 82.6 - 94.4 fL 89.5 MCH 27.1 - 32.0 pg 31.0 MCHC 31.7 - 35.0 g/dL 34.7 RDWSD 37.0 - 46.0 fL 89.3 (H) RDWCV 11.5 - 14.1 % 27.7 (H) Platelets 145 - 357 x10(3)/mcL 130 (L) MPV 7.6 - 12.9 fL Not Measured nRBC % Auto % 0.3 nRBC Abs Auto 0.000 - 0.000 x10(3)/mcL 0.020 (H) Neutr Abs (ANC) 1.70 - 6.10 x10(3)/mcL 6.42 (H) Neutrophils % % 87.0 Immature Gran % % 0.50 Lymphocytes % % 11.8 Monocytes % % 0.7 Eosinophils % % 0.0 Basophils % % 0.0 Oralia Gran Abs 0.00 - 0.04 x10(3)/mcL 0.04 Lymphocytes Abs 0.9 - 3.2 x10(3)/mcL 0.9 Monocyte Abs 0.3 - 0.9 x10(3)/mcL 0.0 (L) Eosinophils Abs 0.0 - 0.4 x10(3)/mcL 0.0 Basophils Abs 0.0 - 0.1 x10(3)/mcL 0.0 Plat Estimate Decreased RBC Morphology Abnormal Macrocytes /HPF 1-5 Microcytes /HPF 1-5 Hypochromia Slight Polychromasia >5/HPF Present Ovalocytes /HPF 1-5 Giant Platelets /HPF Less than 1 Sodium 135 - 145 mmol/L 138 Potassium 3.5 - 5.0 mmol/L 4.2 Chloride 98 - 107 mmol/L 103 CO2 22 - 31 mmol/L 22 Anion Gap 5 - 15 mmol/L 13 BUN 8 - 18 mg/dL 24 (H) Creatinine 0.70 - 1.20 mg/dL 0.94 Estimated GFR >=60 mL/min/1.73 m?? 70 Calcium 8.5 - 10.5 mg/dL 9.3 Glucose Lvl 65 - 199 mg/dL 288 (H) Total Protein 6.1 - 8.0 g/dL 7.2 Albumin 3.2 - 5.2 g/dL 4.4 Total Bilirubin 0.2 - 1.3 mg/dL 0.2 Alk Phos 35 - 105 unit/L 72 AST 0 - 30 unit/L 13 ALT 0 - 30 unit/L 12 CA 125 <=38.1 unit/mL 8.8 Latest Reference Range & Units 09/28/21 09:58 12/22/21 08:33 03/19/22 09:59 CA 125 <=38.1 unit/mL 41.7 (H) 11.5 8.8 Assessment and Plan: FIGO stage IIIC1 grade 3 (high-grade endometrioid) endometrial cancer. No contraindications or dose modifications required to proceed with her last cycle of consolidationchemotherapy today. Return to care 04/03/[address] scan chest abdomen pelvis for annual baseline status post adjuvant chemotherapy as well as for a visit with Dr. Brian Vidales the same day. Tobacco Use Disorder Tobacco cessation was encouraged. Patient verbalizes understanding but is not ready for cessation. Diabetes Mellitus, Type 2 Patient was reinstructed to make an appointment with her primary care physician for continued management and prescribing of her medications for her diabetes. Myalgias (taxane induced) Education provided she can take loratadine 10 mg daily for taxane-induced myalgias in the ~ 7-days after chemotherapy. She did not try this after last cycle, but states she has picked up the medication and will try that this time around. Altered Bowel Pattern Metamucil previously encouraged for alternating loose and formed stool. She has not picked up the Metamucil and is considering doing so. Encouraged slow increase of dietary fiber and water. Sarita Cyr, MSN, CAR MECHANIC, MANAGER [employer]INT[employer] . documented in this encounter Plan of Treatment Not on file documented as of this encounter Visit Diagnoses Diagnosis Adenocarcinoma of endometrium Malignant neoplasm of corpus uteri, except isthmus Type 2 diabetes mellitus with other specified complication, without long-term current use of insulin Tobacco use disorder documented in this encounter Care Teams Ice Grinder Relationship Specialty Start Date End Date Pk Trevizo MD [address] [place] [address] PCP - General Emergency Medicine 05/02/21 documented as of this encounter
--- OUTSIDE RECORDS SUMMARY | 2024-04-14 12:55 | XMS_ITS | Encounter Summary ---
[place] [address] Care Team Providers Care Projection Technician Name Role Phone Pk Trevizo MD Primary Care Provider [phone] Encounter Details Date Type Department Care Team (Late st Contact Info) Description 02/23/2022 9:45 AM EDT Office Visit [place]ology [place] [address] Social History Tobacco Use Types Packs/Day Years [...] on filedocumented in this encounter Care Teams Projection Technician Relationship Specialty Start Date End Date Pk Trevizo MD [address] [place] [address] PCP - General Emergency Medicine 05/02/21 documented as of this encounter
--- OUTSIDE RECORDS SUMMARY | 2024-04-14 12:55 | XMS_ITS | Encounter Summary ---
Author Organization [facility] Address [facility] [place] [address] Care Team Providers Care Hand Former Helper Name Role Phone Pk Trevizo MD Primary Care Provider [phone] Reason for Referral * Consultation (Routine) - Closed Specialty Diagnoses / Procedures Referred By Kit saravia Referred To Contact Weight and Wellness Diagnoses Class 2 severe obesity due to excess calories with serious comorbidity and body mass index (BMI) of 39.0 to 39.9 in adult Sarita Cyr OXYACETYLENE BURNER [facility] [place] [address] [facility] [address] [place] [address] Referral ID Status Reason Start Date Expiration Date V isits Requested Visits Authorized [id number] Closed Consult, Test & Treat 04/04/2022 04/04/2023 1 1 Encounter Details Date Type Department Care Team (Late st Contact Info) Description 04/03/2022 3:00 PM EDT Office Visit [place] [id number] Sarita Cyr OXYACETYLENE BURNER [facility] [place] [address] Hyperglycemia; Class 2 severe obesity due to excess calories with serious comorbidity and body mass index (BMI) of 39.0 to 39.9 in adult; Type 2 diabetes mellitus with other specified complication, without long-term current use of insulin; Tobacco use disorder; Adenocarcinoma of endometrium Social History Tobacco Use [...] Sign Reading Time Taken Comments Blood Pressure 142/72 04/03/2022 3:21 PM EDT Pulse 86 04/03/2022 3:21 PM EDT Temperature 36.4 ??C (97.5 ??F) 04/03/2022 3:21 PM ED T Respiratory Rate - - Oxygen Saturation 100% 04/03/2022 3:21 PM EDT Inhaled Oxygen Concentration - - Weight 107 kg (235 lb 14.3 oz) 04/03/2022 3:21 P M EDT Height 164 cm (5' 4.57) 04/03/2022 3:21 PM EDT Body Mass Index 39.78 04/03/2022 3:21 PM EDT documented in this encounter Progress Notes * Sarita Cyr, OXYACETYLENE BURNER - 04/03/2022 3:00 PM EDT Division [place] [address] Reason for Visit: Review Post-Treatment CT Scan Established Patient Patient Active Problem List Diagnosis [...] use disorder F17.200 ??? Hypersensitivity reaction T78.40XA History of present illness: 10/17/2021, she underwent a total laparoscopic/robotic hysterectomy, [...] states she thinks she is gaining weight. She reports her stools vacillate between loose to formed and has not initiated Metamucil.Upon questioning, she denies making an appointment for follow-up with her primary care physician tomanage her known non-oncologic diagnoses including diabetes. Patient not taking multiple meds including ASA, atorvastatin, and insulin. This advertising copy writer spoke with a radiologist for a wet read on her CT scan today. He stated there is continued retroperitoneal lymphadenopathy which was present previously and is not larger. MD stated the nodes do not look normal, are rounded and pronounced, and needs following. Reports worsened balance. Patient reports RLE numbness since her CVA and now reports she is having aching that started perhaps between her 2nd and 3rd chemo. Commences in upper lateral aspect of the extremity and proceeds distally to the lower leg, but denies any involvement in the foot. Pt acknowledges she is smoking ~ 1 ppd. Readiness assessed as pt previously stated she would consider cessation depending on the CT results. Pt stated it was all the stress; can't work and want to go back to work. Patient asked if she could start diet gummies which are promoted by [employer]. This advertising copy writer stated I did not endorse her using them, and she asked this advertising copy writer to ask Dr. Vidales. This advertising copy writer provided assurance Dr. Vidales also would not endorse using the product. This advertising copy writer discussed the [facility] and discussed the multi-disciplinary approach and also provided education weight loss is in part about changing habits. Current Outpatient Medications on File Prior to Visit Medication Sig Dispense Refill ??? metFORMIN (Glucophage) 500 mg Tablet Take 1 tablet by mouth 2 times daily. 60 tablet 2 ??? dexAMETHasone (Decadron) 4 mg Tablet Take 5 tablets (20 mg) the night before AND 5 tablets (20 mg) the morning of each upcoming dose of chemotherapy. Take with food. (Patient taking differently: Take 5 tablets (20 mg) the night before AND 5 tablets (20 mg) the morning of each upcoming dose of chemotherapy. Take with food.) 50 tablet 0 ??? famotidine (Pepcid) 20 mg Tablet Take 1 tablet the night before AND 1 tablet the morning of each upcoming dose of chemotherapy. 10 tablet 0 ??? diphenhydrAMINE (Benadryl) 25 mg Capsule Take 1 tablet the night before AND 1 tablet the morning of each upcoming dose of chemotherapy. 10 capsule 0 ??? lidocaine-prilocaine (EMLA) Cream Apply to skin over port site 1-hour prior to access for labs or chemotherapy. 30 g PRN ??? psyllium (psyllium) Take 1 packet by mouth daily. 30 packet 5 ??? loratadine (Claritin) 10 mg Tablet Take 1 tablet daily for 7 days after each cycle of chemotherapy. (Patient not taking: Reported on 04/03/2022) 14 tablet 0 ??? Lantus Solostar U-100 Insulin 100 unit/mL (3 mL) pen INJECT 12 UNITS UNDER THE SKIN DAILY ??? prochlorperazine (Compazine) 10 mg Tablet Take 1 tablet every 6-hours on schedule for 3-days after chemotherapy. Thereafter, may take 1 tablet every 6- hours as needed for nausea or vomiting. (Patient not taking: Reported on 04/03/2022) 60 tablet 3 ??? ondansetron ODT (Zofran-ODT) 8 mg Tablet, Rapid Dissolve Take 1 tablet by mouth every 8 hours as needed for Nausea (Do NOT take in the first 72-hours after chemotherapy.). (Patient not taking: Reported on 04/03/2022) 20 tablet 3 ??? OLANZapine (ZyPREXA) 5 mg Tablet Take 1 tablet at bedtime daily for 4 days after each dose of chemotherapy. (Patient not taking: Reported on 04/03/2022) 12 tablet 2 ??? acetaminophen (Tylenol) 325 mg Tablet Take 2 tablets by mouth every 6 hours as needed for Pain.(Patient not taking: No sig reported) 30 tablet 0 ??? ibuprofen (Advil) 600 mg Tablet Take 1 tablet by mouth every 6 hours as needed for Pain. (Patient not taking: No sig reported) 40 tablet 3 ??? polyethylene glycoL (Miralax) 17 gram Powder in Packet Take 17 g by mouth daily as needed. (Patient not taking: No sig reported) 14 each 2 ??? OneTouch Verio test strips Strip 1 each by Other route 3 times daily. Use as instructed Indications: diabetes mellitus (Patient not taking: Reported on 04/03/2022) 300 each 3 ??? OneTouch Delica Lancets 30 gauge Misc 1 each by Other route 3 times daily. Indications: diabetes mellitus (Patient not taking: Reported on 04/03/2022) 300 each 3 ??? nicotine (Nicoderm CQ) 21 mg/24 hr Patch 24 hr Change 1 patch on the skin daily. (Patient not taking: No sig reported) 28 patch 0 ??? atorvastatin (Lipitor) 80 mg Tablet Take 1 tablet by mouth every evening. (Patient not taking: Reported on 04/03/2022) 90 tablet 3 ??? aspirin 81 mg Tablet, Chewable Take 81 mg by mouth daily. ??? nicotine (Nicotrol) 10 mg Cartridge Inhale into the lungs. No current facility-administered medications on file prior to visit. Review of systems: Pertinent positive and negative findings per Interval History. Objective ECOG Performance Status: 1 Vital signs: Wt Readings from Last 6 Encounters: 04/03/22 107 kg (235 lb 14.3 oz) 03/19/22 105.5 kg (232 lb 9.4 oz) 02/23/22 104.6 kg (230 lb 9.6 oz) 02/02/22 105.1 kg (231 lb 9.6 oz) 01/12/22 101.7 kg (224 lb 4.8 oz) 12/22/21 102.1 kg (225 lb) BMI Readings from Last 6 Encounters: 04/03/22 39.78 kg/m?? 03/19/22 39.23 kg/m?? 02/23/22 38.89 kg/m?? 02/02/22 39.06 kg/m?? 01/12/22 37.33 kg/m?? 12/22/21 37.44 kg/m?? Physical examination: General: NAD. HEENT: EOM intact. No scleral icterus. Respiratory: Respirations easy and non-labored. Pelvic exam: Deferred. Neuro: Unsteady gait when walking without an assistive device. Pathology: 10/18/2021 Molecular Genetics RESULTS MLH1 Promoter [...] excision: One lymph node, positive for malignancy (1/) - Largest zoila deposit: 0.4 cm - Extra zoila extension: not identified Electronically signed by: Marcy Raza MD Verified: 11/01/2021 16:02 Pathologist Performed at: -[facility] [place] Dept. of Pathology, [place], [place] SYNOPTIC Specimen Procedure: Total hysterectomy and [...] Nodes with Macrometastasis: 1 Number of Pelvic [place] Nodes with Macrometastasis: 0 Total Number of Pelvic Nodes with Micrometastasis: 0 Number of Pelvic [place] Nodes with Micrometastasis: 0 Laterality of Pelvic Node(s) with Tumor: Left non-sentinel Size of Largest Pelvic [place] Metastatic Deposit: 4 mm Lymph Nodes Examined Total Number of Pelvic Nodes Examined: 3 Number of Pelvic [place] Nodes Examined: 3 Total Number of Para-aortic Nodes Examined: 0 Distant Metastasis Distant Site(s) Involved: Omentum - focally present in omental adhesion Pathologic Stage Classification (pTNM, AJCC 8th Edition) pT Category: pT3a pN Category: pN1a FIGO Stage FIGO Stage: IIIC1 Additional Findings Additional Findings: None identified Tumor Block(s): C10 CAP [facility] May 2021 Release Laboratory studies: 04/03/2022: EXAMINATION: CT CHEST ABDOMEN PELVIS W CONTRAST (GENERIC) ?? CLINICAL HISTORY: 57-year-old female with uterine/cervical cancer. Assessment of treatment response. Stage III endometrial cancer. Status post 6 cycles of adjuvant therapy. Status post hysterectomy. Follow-up. Restaging. ?? TECHNIQUE: Helical CT of the chest, abdomen, and pelvis was performed following the intravenous administration of contrast. Administered 120.0 ml of OMNIPAQUE 350.00 mg/ml. Oral contrast was administered. ?? COMPARISON: Comparison is made to CT of the Chest, Abdomen, and Pelvis dated October 07, 2021 ?? FINDINGS: ?? Corner Trimmer Operator Images: Noncontributory. ?? CT OF THE CHEST: ?? Pulmonary parenchyma: There is no focal pulmonary nodule or opacity. ?? Airways: The central airways are patent. There is no endobronchial or endotracheal lesion. There are layering secretions within the left mainstem bronchus. ?? Pleura: No pleural effusion or pneumothorax. ?? Lymph nodes:There are no pathologically enlarged lymph nodes. ?? Heart, pericardium, and great vessels: Cardiac size is within normal limits. There is physiologic pericardial fluid. The aorta is normal in course and caliber. There is a normal three-vessel aortic arch configuration. The pulmonary arteries are normal in course and caliber; there are no central intraluminal filling defects. There is a right internal jugular chest port with catheter tip at the cavoatrial junction. ?? Other mediastinal structures: The mediastinal fat is preserved. Limited evaluation of the esophagus is unremarkable. ?? Lower neck: Visualized structures within the inferior neck are within normal limits. ?? Body wall soft tissues: Normal. ?? Skeletal structures: As detailed below. ?? CT OF THE ABDOMEN AND PELVIS: ?? Liver: The liver is mildly diffusely hypoattenuating, consistent with hepatic steatosis. ?? Bile ducts: Normal. ?? Gallbladder: Normal. ?? Pancreas: Normal. ?? Spleen: Normal. ?? Adrenals: Normal. ?? Kidneys: There is a left pelvic kidney which is mildly atrophic as compared to the contralateral right, unchanged. There is a 5 mm hypoattenuating focus along the posterior upper pole the right kidney, too small to accurately characterize, but cyst. Presenting a tiny renal cyst. ?? Urinary Bladder: Normal. ?? Vasculature: The aorta is normal in course and caliber. The origin the mesenteric and renal arteries are within normal limits. The inferior vena cava is normal in course and caliber. The superior mesenteric, splenic, and portal veins are patent. The hepatic veins are patent. The renal veins are patent. ?? Lymph Nodes: There are stable prominent left periaortic retroperitoneal lymph nodes, the larger of which is immediately left lateral to the left common iliac artery, with a short axis diameter of 11 mm, unchanged as compared to prior. There are no new pathologically enlarged lymph nodes. ?? Bowel: Limited evaluation the distal esophagus is unremarkable. The stomach is partially distended.The duodenum is normal in course and caliber. The remainder of the small bowel is within normal limits. The ileocecal valve is within normal limits. The large bowel is within normal limits. ?? Peritoneum and mesentery: No ascites, free air, or loculated fluid collection. No mesenteric inflammation. ?? Abdominal wall: Normal. ?? Reproductive organs: The uterus is surgically absent. There is no new nodularity or abnormal enhancement within the operative bed. ?? Osseous structures: There are no suspicious osseous lesions. ?? IMPRESSION ?? 1. Interval hysterectomy. No CT evidence of recurrent disease at the operative site. 2. Stable prominent left periaortic iliac and periaortic lymph nodes are indeterminant. Continued attention on follow-up is recommended. 3. No new sites of metastatic disease within the chest, abdomen, and pelvis. Latest Reference Range & Units 03/31/22 09:58 12/22/21 08:33 03/19/22 09:59 CA 125 <=38.1 unit/mL 41.7 (H) 11.5 8.8 Assessment and Plan: FIGO stage IIIC1 grade 3 (high-grade endometrioid) endometrial cancer. No definitive evidence of disease at this time based on CT scan. There is persistent retroperitoneal lymphadenopathy that will need to be followed. This advertising copy writer will discuss with patient's attending. Patient was instructed to RTC in 3-months for her first surveillance visit. Tobacco Use Disorder Tobacco cessation was encouraged. Patient verbalizes understanding but is not ready for cessation. Diabetes Mellitus, Type 2 Patient was reinstructed to make an appointment with her primary care physician for continued management and prescribing of her medications for her diabetes and multiples other chronic co-morbidities. Obesity Referral made to the [facility] per patient agreement. Altered Bowel Pattern Metamucil was again encouraged for alternating loose and formed stool. Sarita Cyr, MSN, OXYACETYLENE BURNER, ACCOUNTS OFFICER-BC . documented in this encounter Plan of Treatment Scheduled Referrals Name Type Priority Associated Diagnoses Orde r Schedule Referral to [facility] Center Outpatient Referral Routine Class 2 severe obesity due to excess calories with serious comorbidity and body mass index (BMI) of 39.0 to 39.9 in adult Ordered: 04/04/2022 documented as of this encounter Procedures Procedure Name Priority Date/Time Associated Diagnosis Comments POCT FINGERSTICK GLUCOSE Routine 04/03/2022 3:44 PM EDT Hyperglycemia POCT GLUCOSE Routine 04/03/2022 3:41 PM EDT documented in this encounter Results * POCT Fingerstick Glucose (04/03/2022 3:44 PM EDT) Glucose, POC 82 60 - 199 mg/dl 04/03/2022 3:44 PM EDT Sarita Cyr APRN POINT OF CARE TEST O RDERABLES * POCT Glucose (04/03/2022 3:41 PM EDT) Glucose, POC 82 65 - 199 mg/dL [facility] Comment: Supplemental ranges: <140 mg/dL before meals <180 mg/dL all other times of the day Blood 04/03/2022 3:41 PM EDT 04/03/2022 3:41 PM EDT Sarita Cyr OXYACETYLENE BURNER POINT OF CARE TEST O RDERABLES [facility] [place] [address] documented in this encounter Visit Diagnoses Diagnosis Hyperglycemia Other abnormal glucose Class 2 severe obesity due to excess calories with serious comorbidity and body mass index (BMI) of 39.0 to 39.9 in adult Type 2 diabetes mellitus with other specified complication, without long-term current use of insulin Tobacco use disorder Adenocarcinoma of endometrium Malignant neoplasm of corpus uteri, except isthmus documented in this encounter Care Teams Hand Former Helper Relationship Specialty Start Date End Date Pk Trevizo MD [address] [place] [address] PCP - General Emergency Medicine 05/02/21 documented as of this encounter
--- OUTSIDE RECORDS SUMMARY | 2024-04-14 12:55 | XMS_ITS | Encounter Summary ---
Author Organization [facility] Address [facility] [place] [address] Care Team Providers Care Bicycle Mechanic Name Role Phone Pk Trevizo MD Primary Care Provider [phone] Reason for Referral * Consultation (Routine) - Closed Specialty Diagnoses / Procedures Referred By Kit saravia Referred To Contact Hematology and Oncology Diagnoses Adenocarcinoma of endometrium Brian Vidales MD [facility] [place] [address] Antoine Rajput MD [address] [place] [address] [place] [address] Referral ID Status Reason Start Date Expiration Date V isits Requested Visits Authorized [id number] Closed Assume Subset of Care 12/22/2021 12/22/2022 1 1 Encounter Details Date Type Department Care Team (Late st Contact Info) Description 12/22/2021 Orders Only [place] [address] Tiana Benz, RN Adenocarcinoma of endometrium Social History Tobacco [...] as of this encounter Plan of Treatment Scheduled Referrals Name Type Priority Associated Diagnoses Orde r Schedule Referral to Hematology and Oncology Outpatient Referral Routine Adenocarcinoma of endometrium Ordered: 12/22/2021 documented as of this encounter Visit Diagnoses Diagnosis Adenocarcinoma of endometrium Malignant neoplasm of corpus uteri, except isthmus documented in this encounter Care Teams Bicycle Mechanic Relationship Specialty Start Date End Date Pk Trevizo MD [address] [place] [address] PCP - General Emergency Medicine 05/02/21 documented as of this encounter
--- OUTSIDE RECORDS SUMMARY | 2024-04-14 12:55 | XMS_ITS | Encounter Summary ---
Author Organization [facility] [place] [address] Care Team Providers Care Windows Server Administrator Name Role Phone Pk Trevizo MD Primary Care Provider [phone] Reason for Referral * Diagnostic Test (Routine) - Closed Specialty Diagnoses / Procedures [facility] Referred To Contact Radiology Diagnoses Adenocarcinoma of endometrium Procedures CT Chest Abdomen Pelvis w Contrast (Generic) Sarita Cyr APRN [facility] DR OBSTETRICS & [place] [address] [facility] [place] [address] Referral ID Status Reason Start Date Expiration Date V isits Requested Visits Authorized [id number] Closed Specialty Service Requested 02/24/2022 08/27/2023 1 1 Reason for Visit * Reason Comments Chemotherapy Carbo/taxol Encounter Details Date Type Department Care Team (Late st Contact Info) Description 02/23/2022 9:40 AM EDT Office Visit [place] [address] Sarita Cyr APRN [facility] OBSTETRICS & [place] [address] Type 2 diabetes mellitus with other specified complication, without long-term current use of insulin; Diarrhea, unspecified type; Myalgia; Adenocarcinoma of endometrium; Tobacco use disorder Social History Tobacco Use [...] Sign Reading Time Taken Comments Blood Pressure 139/81 02/23/2022 9:42 AM EDT Pulse 85 02/23/2022 9:42 AM EDT Temperature 36.4 ??C (97.6 ??F) 02/23/2022 9 :42 AM EDT Respiratory Rate 20 02/23/2022 9:42 AM EDT Oxygen Saturation 97% 02/23/2022 9:4 2 AM EDT Inhaled Oxygen Concentration - - Weight 104.6 kg (230 lb 9.6 oz) 02/23/2022 9:42 AM EDT pt weighed with shoes. pt refusal to remove Height 164 cm (5' 4.57) 02/23/2022 9:4 2 AM EDT Body Mass Index 38.89 02/23/2022 9:42 AM EDT documented in this encounter Progress Notes * Sarita Cyr APRN - 02/23/2022 9:40 AM EDT Division of [place] [address] Reason for visit: Cycle #5 adjuvant chemotherapy Established Patient Patient Active Problem [...] Start Date End Date Taking? Authorizing Provider Saiuch Verio test strips Strip 1 each by [...] reports her stools vacillate between loose to formed. Reports myalgias beginning on Day 3 of the cycle and has not tried loratadine. Geeta asks if metformin causes urinary frequency. She asks for a refill on her metformin stating she is on her last prescription and does not have any refills left. Denies having seen her PCP. Deniesurgency or hematuria. In addition, she states she still has pain in her stomach pointing to her upper abdomen. Pain onset was prior to surgery. Pain is intermittent. She states it feels like someone punched her in the stomach. No aggravating characteristics identified. Laying down is a relieving factor. Review of systems: 10 systems in total reviewed, otherwise negative. Objective ECOG Performance Status: 1 Vital signs: BP 139/81 (Patient Position: Sitting) Pulse 85 Temp 36.4 ??C (97.6 ??F) (Tympanic) Resp 20 Ht 164 cm (5' 4.57) Wt 104.6 kg (230 lb 9.6 oz) Comment: pt weighed with shoes. pt refusal to remove SpO2 97% BMI 38.89 kg/m?? Physical examination: General: Well-groomed. She moves easily to and from the exam room without obvious limitation. Wig in place. HEENT: Alopecia, pupils equal, no icterus. Mouth [...] node, positive for malignancy (1/1) - Largest chelsey deposit: 0.4 cm - Extra chelsey extension: not identified Electronically signed by: Marcy Raza MD Verified: 11/01/2021 16:02 Pathologist Performed at: -[facility] [place] Dept. of [place]ology, [place], [place] SYNOPTIC Specimen Procedure: Total hysterectomy and [...] Nodes with Macrometastasis: 1 Number of Pelvic Emily Nodes with Macrometastasis: 0 Total Number of Pelvic Nodes with Micrometastasis: 0 Number of Pelvic Emily Nodes with Micrometastasis: 0 Laterality of Pelvic Node(s) with Tumor: Left non-sentinel Size of Largest Pelvic Chelsey Metastatic Deposit: 4 mm Lymph Nodes Examined Total Number of Pelvic Nodes Examined: 3 Number of Pelvic Emily Nodes Examined: 3 Total Number of Para-aortic Nodes Examined: 0 Distant Metastasis Distant Site(s) Involved: Omentum - focally present in omental adhesion Pathologic Stage Classification (pTNM, AJCC 8th Edition) pT Category: pT3a pN Category: pN1a FIGO Stage FIGO Stage: IIIC1 Additional Findings Additional Findings: None identified Tumor Block(s): C10 CAP eCC May 2021 Release Laboratory studies: Adequate for treatment today. Assessment and Plan: FIGO stage IIIC1 grade 3 (high-grade endometrioid) endometrial cancer. No contraindications or dose modifications required to proceed with chemotherapy today. RTC in 3-weeks for consideration of ongoing adjuvant chemotherapy. CT scan C/A/P ordered for 2-3 weeks after her last cycle of chemotherapy with follow-up with Dr. Vidales the same day per patient/family request to allow for imaging at [facility] to allow for consistency in imaging. Tobacco Use Disorder Tobacco cessation was encouraged. Patient verbalizes understanding but is not ready for cessation. Diabetes Mellitus, Type 2 Metformin refilled with 2 refills with instruction she needs to see her PCP for management and prescribing of meds for her diabetes. She states she is not taking her insulin. Hemoglobin A1C ordered to be drawn today in Infusion. Myalgias (taxane induced) Education provided she can take loratadine 10 mg daily for taxane-induced myalgias in the ~ 7-days after chemotherapy. Altered Bowel Pattern Metamucil encouraged for alternating loose and formed stool. Encouraged slow increase of dietary fiber and water. Sarita Cyr, MSN, MEDICAL ECONOMICS CONSULTANT, LIQUID COMPOUNDER-BC . documented in this encounter Plan of [...] who have questions please contact the health director of health care marketing that requested your imaging first. ? Electronically signed by: Jared Broussard DO, [facility] ([phone]), at 04/03/2022 3:22 PM Narrative 04/03/2022 3:22 [...] and Pelvis dated October 07, 2021 FINDINGS: Pellet Preparation Operator Images: Noncontributory. CT OF THE CHEST: Pulmonary [...] no suspicious osseous lesions. Procedure Note Jared Broussard DO - 04/03/2022 EXAMINATION: CT CHEST ABDOMEN PELVIS [...] Abdomen, and Pelvisdated October 07, 2021 FINDINGS: Pellet Preparation Operator Images: Noncontributory. CT OF THE CHEST: Pulmonary [...] patients who have questions please contactthe health director of health care marketing that requested your imaging first. Electronically signed by: Jared Broussard DO, [facility]([phone]), at 04/03/2022 3:22 PM Sarita Cyr MEDICAL ECONOMICS CONSULTANT IMG CT ORDERABLES * (ABNORMAL) Hemoglobin A1c (02/23/2022 11:15 AM EDT) Hemoglobin A1c 7.2(H) 4.3 - 5.6 % [facility] Comment: Reference Range: 4.3 [...] Mellitus, Diabetes Care 2013; 36: Suppl. 1, H57-79 Estimated Average Glucose 159 mg/dL [facility] Comment: eAG equivalents for [...] into estimated average glucose values. ??Diabetes Care 2008:31(8):2281-8160. Blood 02/23/2022 11:1 5 AM EDT 02/23/2022 11:20 AM EDT Narrative Resulting Agency Comment Spec In Lab Sarita Cyr APRN CHEMISTRY ORDERABLES [facility] [place] [address] documented in this encounter Visit Diagnoses Diagnosis Type 2 diabetes mellitus with other specified complication, without long-term current use of insulin Diarrhea, unspecified type Myalgia Mylagia and myositis, unspecified Adenocarcinoma of endometrium Malignant neoplasm of corpus uteri, except isthmus Tobacco use disorder Adenocarcinoma of endometrium Malignant neoplasm of corpus uteri, except isthmus documented in this encounter Care Teams Windows Server Administrator Relationship Specialty Start Date End Date Pk Trevizo MD [address] [place] [address] PCP - General Emergency Medicine 05/02/21 documented as of this encounter
--- OUTSIDE RECORDS SUMMARY | 2024-04-14 12:55 | XMS_ITS | Encounter Summary ---
Author Organization [facility] [place] [address] Care Team Providers Care Heel Shaver Name Role Phone Pk Trevizo MD Primary Care Provider [phone] Encounter Details Date Type Department Care Team (Late st Contact Info) Description 09/18/2022 Orders Only Hematology [place] [address] Katty Fuentes Social History Tobacco Use Types Packs/Day Years [...] on filedocumented in this encounter Care Teams Heel Shaver Relationship Specialty Start Date End Date Pk Trevizo MD [address] [place] [address] PCP - General Emergency Medicine 05/02/21 documented as of this encounter
--- OUTSIDE RECORDS SUMMARY | 2024-04-14 12:55 | XMS_ITS | Encounter Summary ---
Author Organization Counts Include [facility] Address [facility] [place] [address] Care Team Providers Care Jailer Name Role Phone Pk Trevizo MD Primary Care Provider [phone] Reason for Visit * Treatment/Therapy Plan Authorization (Routine) - Closed Specialty Diagnoses / Procedures Referred By Contac t Referred To Contact Gynecology Oncology Diagnoses Adenocarcinoma of endometrium Procedures TC PALONOSETRON HCL, 25MCG, INJECTION (ALOXI) TC APREPITANT, 1 MG, INJECTION TC PACLITAXEL, 1MG, INJ TC CARBOPLATIN, 50MG, INJECTION (PARAPLATIN) Brian Vidales MD [facility] [place] [address] [facility] [employer] Preparedness Training Officer [address] [place] [address] Referral ID Status Reason Start Date Expiration Date Visits Re quested Visits Authorized [id number] Closed 11/21/2021 11/21/2022 99 99 Encounter Details Date Type Department Care Team (Latest Contact Info) Description 01/12/2022 8:33 AM EDT - 01/12/2022 11:59 PM EDT Hospital Encounter Hematology [place] [address] Adenocarcinoma of endometrium Discharge Disposition: [...] as of this encounter Progress Notes * Irene Gurrola RN - 01/12/2022 10:57 AM EDT Patient Name: Geeta Sadler Patient Age: 56 y.o. Birthdate: 1965 Admit date: 01/12/2022 Attending Physician: No att. providers found Geeta Sadler, 56 y.o. female with diagnosis of endometrial cancer is here for chemotherapy infusion of paclitaxel and carboplatin. PROTOCOL: no CYCLE: 3 DAY: 1 Patient had a reaction to paclitaxel on 12/01/21 but has tolerated it well since then with the infusion running at half rate for 20 minutes, then full rate to completion. S: Patient offers no complaints at this time. O: Chemotherapy orders independently verified for correct drug name, route and dosage per patient'sheight, weight and BSA by Kaleigh Gurrola RN and onsite pharmacist REACTIONS (DESCRIPTION, TIME, INTERVENTION AND EFFECTIVENESS) None A: Pt. Tolerated treatment well. Geeta Sadler confirms that all questions and issues have been addressed. P: Return to clinic as scheduled Pt. chemo teaching instructions included: During clinic hours (8am-5pm Saturday-Saturday): pt. can call [phone] with questions or concerns. After clinic hours (5pm-8am Saturday-Saturday and s) pt can call [phone] and ask for the cosmetic surgeon/oncologist gas station cashier. Geeta Sadler verbalized understanding of potential chemotherapy side effects and home care including but not limited to- handwashing to prevent infection, signs and symptoms of low blood counts (fever, fatigue, bleeding), to call with a fever of 100.4 or greater, any significant constipation/diarrhea, importance of nutrition and fluid intake (drinking at least 32-64 ounces of non-caffeinated beverages/day), mouth care. Geeta Sadler verbalized understanding of how to take prescription medications given for home use after chemotherapy. documented in this encounter Plan of Treatment [...] over 2 Minutes, ONCE, 1 dose, On Sat01/12/22 at 1015, Alternative administration of IV push over 2 minutes is a recommendation from the jet dyeing machine operator. Administer prior to chemotherapy., Routine Given 01/12/2022 10:28 AM EDT 130 mg CARBOplatin (Paraplatin) 693 mg in dextrose 5% 319.3 mL infusion 693 mg (Target AUC = 5), Intravenous, ONCE, 1 dose, On Sat01/12/22 at 1415, Administer over 30 Minutes, Warning Vesicant/Irritant Medication New Bag 01/12/2022 3:05 PM EDT 693 mg 638.6 mL/hr dexAMETHasone (Decadron) 20 mg in sodium chloride 0.9% 50 mL infusion 20 mg, Intravenous, ONCE, 1 dose, On Sat01/12/22 at 1015, Administer over 10 Minutes, Administer 30 minutes prior to PACLitaxel New Bag 01/12/2022 10:28 AM EDT 20 mg 300 mL/hr diphenhydrAMINE (Benadryl) capsule 50 mg 50 mg, Oral, ONCE, 1 dose, On Sat01/12/22 at 1015, Administer 30 minutes prior to PACLitaxel, Routine Given 01/12/2022 10:28 AM EDT 50 mg famotidine (Pepcid) (10 mg/mL) injection 20 mg 20 mg, Intravenous, ONCE, 1 dose, On Sat01/12/22 at 1015, Administer 30 minutes prior to PACLitaxel Given 01/12/2022 10:28 AM EDT 20 mg heparin (pf) (porcine) (100 units/mL) flush 5 mL syringe 500 Units 500 Units, Intravenous, ONCE PRN, Starting on Sat01/12/22 at 0946, Until 01/13/22 at 0433, Line Care, Refer to Intravenous (IV) Procedure: Accessing Implanted Vascular Access Devices (174) procedure and/or Intravenous (IV) Job Aid: Adult Flushing & Catheter Care (8437) job aid for additional information regarding guidelines and administration., Routine Given 01/12/2022 3:40 PM EDT 500 Units PACLitaxeL (Taxol) 378 mg in sodium chloride 0.9% Non-PVC 563 mL infusion 378 mg (175 mg/m2/dose ? 2.16 m2 Treatment Plan BSA from Recorded weight), Intravenous, ONCE, 1 dose, On Sat01/12/22 at 1115, Administer over 3 Hours, Warning Vesicant/Irritant Medication Rate/Dose Change 01/12/2022 12:00 PM EDT 187.7 mL/hr New Bag 01/12/2022 11:33 AM EDT 378 mg 93 mL/hr palonosetron (Aloxi) (0.05 mg/mL) injection 0.25 mg 0.25 mg, Intravenous, ONCE, 1 dose, On Sat01/12/22 at 1015, Administer over 30 seconds., Routine Given 01/12/2022 10:28 AM EDT 0.25 mg documented in this encounter Care Teams Jailer Relationship Specialty Start Date End Date Pk Trevizo MD [address] [place] [id number] PCP - General Emergency Medicine 05/02/21 documented as of this encounter
--- OUTSIDE RECORDS SUMMARY | 2024-04-14 12:55 | XMS_ITS | Encounter Summary ---
Author Organization Formerly [facility] [place] [address] Care Team Providers Care Bait Tier Name Role Phone Pk Trevizo MD Primary Care Provider [phone] Encounter Details Date Type Department Care Team (Latest Contact Info) Description 11/06/2022 11:31 AM EDT - 11/06/2022 11:59 PM EDT Hospital Encounter Hematology [place] [address] Adenocarcinoma of endometrium Discharge Disposition: Home Social [...] as of this encounter Progress Notes * Jodee Medellin RN - 11/06/2022 11:43 AM EDT Patient Name: Geeta Sadler Patient Age: 57 y.o. Birthdate: 1965 Admit date: 11/06/2022 Attending Physician: May att. providers found Access visit. See MAR and/or flowsheet. documented in this encounter Plan of Treatment Not on file documented as of this encounter Visit Diagnoses Diagnosis Adenocarcinoma of endometrium Malignant neoplasm of corpus uteri, except isthmus documented in this encounter Administered Medications Inactive Administered Medications - up to 3 most recent administrations Medication Order MAR Action Action Date Dose Rate Site heparin (pf) (porcine) (100 units/mL) flush 5 mL syringe 500 Units 500 Units, Intravenous, ONCE PRN, Starting on Sat11/06/22 at 1134, Until Sat11/07/22 at 0434, Line Care, Routine Given 11/06/2022 11:42 AM EDT 500 Units sodium chloride 0.9 % (flush) (BD PosiFlush Normal Saline 0.9) flush 20 mL 20 mL, Intravenous, EVERY 1 MIN PRN, Starting on Sat11/06/22 at 1134, Until Sat11/07/22 at 0434, Bus Or Truck Garage Mechanic, Routine Given 11/06/2022 11:42 AM EDT 20 mLs documented in this encounter Care Teams Bait Tier Relationship Specialty Start Date End Date Pk Trevizo MD [address] [place] [address] PCP - General Emergency Medicine 05/02/21 documented as of this encounter
--- OUTSIDE RECORDS SUMMARY | 2024-04-14 12:55 | XMS_ITS | Encounter Summary ---
Author Organization [facility] [place] [address] Care Team Providers Care Server Programmer Name Role Phone Pk Trevizo MD Primary Care Provider [phone] Encounter Details Date Type Department Care Team (Late st Contact Info) Description 01/31/2022 Orders Only [place] [address] Brian Vidales MD [facility] DR [place] [address] Social History Tobacco Use Types Packs/Day Years [...] on filedocumented in this encounter Care Teams Server Programmer Relationship Specialty Start Date End Date Pk Trevizo MD [address] [place] [address] PCP - General Emergency Medicine 05/02/21 documented as of this encounter
--- OUTSIDE RECORDS SUMMARY | 2024-04-14 12:55 | XMS_ITS | Encounter Summary ---
Author Organization [facility] Address [facility] [place] [address] Care Team Providers Care Assistant Operator Name Role Phone Pk Trevizo MD Primary Care Provider [phone] Encounter Details Date Type Department Care Team (Late st Contact Info) Description 11/06/2022 Notes Only Care Management [facility] [place] [place] [address] Senia Meyer MSW Social History Tobacco Use Types Packs/Day Years [...] Progress Notes * Senia Meyer MSW - 11/06/2022 11:26 AM EDT Per request from it teacher-onc team I'm able to obtain two $20 [employer] cards for Geeta for treatment-related travel today. Completed today: Financial resources Transportation resources documented in this encounter Plan of Treatment Not on file documented as of this encounter Visit Diagnoses Not on filedocumented in this encounter Care Teams Assistant Operator Relationship Specialty Start Date End Date Pk Trevizo MD [address] [place] [address] PCP - General Emergency Medicine 05/02/21 documented as of this encounter
--- OUTSIDE RECORDS SUMMARY | 2024-04-14 12:55 | XMS_ITS | Encounter Summary ---
Author Organization [facility] [place] [address] Care Team Providers Care Training Instructor Name Role Phone Pk Trevizo MD Primary Care Provider [phone] Encounter Details Date Type Department Care Team (Late st Contact Info) Description 02/22/2022 Telephone Gy[place] [address] Tiana Benz RN Social History Tobacco Use [...] Telephone Encounter - Tiana Benz RN - 02/22/2022 4:14 PM EDT Reviewed patient's labs. Called and informed her that they are within treatment parameters. Patientverbalized understanding. Denies any further questions at this time. documented in this encounter Plan of Treatment Not on file documented as of this encounter Visit Diagnoses Not on filedocumented in this encounter Care Teams Training Instructor Relationship Specialty Start Date End Date Pk Trevizo MD [address] [place] [address] PCP - General Emergency Medicine 05/02/21 documented as of this encounter
--- OUTSIDE RECORDS SUMMARY | 2024-04-14 12:55 | XMS_ITS | Encounter Summary ---
Author Organization [facility] [place] [address] Care Team Providers Care Billing Spec Name Role Phone Pk Trevizo MD Primary Care Provider [phone] Encounter Details Date Type Department Care Team (Late st Contact Info) Description 08/09/2022 Telephone [place] [address] Tiana Benz RN Social History Tobacco Use [...] Telephone Encounter - Tiana Benz RN - 08/09/2022 3:13 PM EST Received a voicemail from patient requesting a call back. Called and spoke with patient. She asks, why wasn't I scheduled for an appointment? Patient was last seen 04/03/22 and was advised to return to clinic for an appointment in 3 months. Advised patient that a message would be sent to the [employer] [facility] secretaries. Informed patient that if she doesn't here from us for an appointment, she should reach out to us. She verbalized understandingShe will reach out next week if she hasn't heard by mid-week. When asked if she has had any changes in symptoms or new concerns, patient reports she continues tohave some weakness and neuropathy that has continued since finishing chemotherapy. She reports pain all over but states this isn't new for her since chemotherapy. She report some changes to her BMsbut states she accidentally threw out her metamucil she was advised to take. Patient has started a diet pill but unsure if she has lost any weight. Patient denies any abdominal pain or vaginal bleeding. Will forward message to [employer] [facility] secretaries to schedule appointment. documented in this encounter Plan of Treatment Not on file documented as of this encounter Visit Diagnoses Not on filedocumented in this encounter Care Teams Billing Spec Relationship Specialty Start Date End Date Pk Trevizo MD [address] [place] [address] PCP - General Emergency Medicine 05/02/21 documented as of this encounter
--- OUTSIDE RECORDS SUMMARY | 2024-04-14 12:55 | XMS_ITS | Encounter Summary ---
Author Organization Formerly [facility] [place] [address] Care Team Providers Care Elementary Reading Specialist Name Role Phone Pk Trevizo MD Primary Care Provider [phone] Encounter Details Date Type Department Care Team (Late st Contact Info) Description 01/11/2022 Orders Only Gynecology Oncology at [facility] [place] [place] [address] Tiana Benz RN Type 2 diabetes mellitus with diabetic neuropathy, unspecified whether intermediate insulin use Social History Tobacco Use Types Packs/Day Years [...] as of this encounter Progress Notes * Tiana Benz RN - 01/11/2022 8:07 AM EDT Faxed hgb a1c order to [facility] lab. Called and confirmed that they received this order. They will add this to her lab draw at 9:20 today. documented in this encounter Plan of Treatment Not on file documented as of this encounter Visit Diagnoses Diagnosis Type 2 diabetes mellitus with diabetic neuropathy, unspecified whether predatory animal exterminator insulin use documented in this encounter Care Teams Elementary Reading Specialist Relationship Specialty Start Date End Date Pk Trevizo MD [address] [place] [address] PCP - General Emergency Medicine 05/02/21 documented as of this encounter
--- OUTSIDE RECORDS SUMMARY | 2024-04-14 12:55 | XMS_ITS | Encounter Summary ---
Author Organization [facility] [place] [address] Care Team Providers Care Classified Copy Control Clerk Name Role Phone Pk Trevizo MD Primary Care Provider [phone] Encounter Details Date Type Department Care Team (Late st Contact Info) Description 12/21/2021 Orders Only [place] [address] Tiana Benz, RN Adenocarcinoma of endometrium Social [...] isthmus documented in this encounter Care Teams Classified Copy Control Clerk Relationship Specialty Start Date End Date Pk Trevizo MD [address] [place] [address] PCP - General Emergency Medicine 05/02/21 documented as of this encounter
--- OUTSIDE RECORDS SUMMARY | 2024-04-14 12:55 | XMS_ITS | Encounter Summary ---
Author Organization [facility] [place] [address] Care Team Providers Care Hospitality Specialist Name Role Phone Pk Trevizo MD Primary Care Provider [phone] Reason for Visit * Reason Comments Chemotherapy Encounter Details Date Type Department Care Team (Latest Contact Info) Description 01/12/2022 8:30 AM EDT Office Visit [place] [id number] Karuna Mccain MD [facility] OBSTETRICS [place] [address] Adenocarcinoma of endometrium Social History Tobacco Use [...] Sign Reading Time Taken Comments Blood Pressure 153/85 01/12/2022 8:39 AM EDT Pulse 88 01/12/2022 8:39 AM EDT Temperature 36.1 ??C (97 ??F) 01/12/2022 8:39 AM EDT Respiratory Rate 18 01/12/2022 8:39 AM EDT Oxygen Saturation 99% 01/12/2022 8:39 AM EDT Inhaled Oxygen Concentration - - Weight 101.7 kg (224 lb 4.8 oz) 01/12/2022 8:39 AM EDT Height - - Body Mass Index 37.33 11/13/2021 1:09 PM EDT documented in this encounter Progress Notes * Karuna Mccain MD - 01/12/2022 8:30 AM EDT Division [place] [address] Gynecologic Oncology-Clinic Note Reason for visit: Cycle #3, paclitaxel/carboplatin, adjuvant therapy for her advanced endometrial cancer. Patient Active Problem List Diagnosis Code ??? [...] present illness: Geeta is a very nice 56 y.o. returns today with her daughter, Yvrose, to continue chemotherapy for her FIGO stage [...] to her kidney function, nor any leak. Last visit: 12/22/21 cycle #2 Interval history: here for cycle #3 Today, she says she generally feels well, with good appetite, nominal bowel and bladder function. She has no vaginal bleeding. 1. Constipation - encouraged to use senna 2. Left hand numbness from prior stroke 3. Smoking 1 ppd and encouraged to reduce again 4. Using compazine no nausea 5. Muscle aches using hot showers She had questions about her alopecia and management. Patient has poor glucose control, does not check FS at home. We discussed her glucose on 12/22/21 was > 400 Patient remains on metformin but would like to stop it. She had laboratory studies, which are adequate for treatment. Review of systems: 7 systems in total reviewed, otherwise negative. Vital signs: BP 153/85 (Patient Position: Sitting) Pulse 88 Temp 36.1 ??C (97 ??F) (Temporal) Resp 18 Wt 101.7 kg (224 lb 4.8 oz) SpO2 99% BMI 37.33 kg/m?? Physical examination: General: Well-groomed. She moves easily to and from the exam room without obvious limitation. Wig in place. HEENT: Partial alopecia, pupils equal, no icterus. Port in place. Abdomen: The laparoscopic port sites are well approximated, with several retained eschars. The abdomen is nontender. There are no obvious hernias. Skin - no lesions Nodes: no adenopathy Pelvic exam: Deferred. Extremities: Symmetric, no edema. [...] MD Verified: 11/01/2021 16:02 Pathologist Performed at: [place] [place], [place], [place] SYNOPTIC Specimen Procedure: Total hysterectomy and [...] Nodes with Macrometastasis: 1 Number of Pelvic [place] Nodes with Macrometastasis: 0 Total Number of Pelvic Nodes with Micrometastasis: 0 Number of Pelvic [place] Nodes with Micrometastasis: 0 Laterality of Pelvic Node(s) with Tumor: Left non-sentinel Size of Largest Pelvic [place] Metastatic Deposit: 4 mm Lymph Nodes Examined Total Number of Pelvic Nodes Examined: 3 Number of Pelvic [place] Nodes Examined: 3 Total Number of Para-aortic Nodes Examined: 0 Distant Metastasis Distant Site(s) Involved: Omentum - focally present in omental adhesion Pathologic Stage Classification (pTNM, AJCC 8th Edition) pT Category: pT3a pN Category: pN1a FIGO Stage FIGO Stage: IIIC1 Additional Findings Additional Findings: None identified Tumor Block(s): [address] May 2021 Release Laboratory studies: Adequate for treatment today. Impression/plan: Geeta is a 56 y.o.-year-old with a new diagnosis of FIGO stage IIIc, grade 3 (high-grade endometrioid) endometrial cancer. She obviously had locally advanced disease at the time of surgery. Her surgery was complicated by injury to a left pelvic kidney, which was not recognized at the time of the surgery as a kidney itself. This was repaired successfully, and she has an indwellingstent which needs removal at the appropriate interval. Endometrial carcinoma Chemotherapy encounter Neuropathy History CVA Patient being treated with adjuvant carboplatin/paclitaxel, 6 cycles. Patient tolerating chemotherapy well, nausea well controlled. 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 Smoking cessation Hyperglycemia Type 2 diabetes BMI 37 We discussed importance of glucose control and her smoking, especially in light prior vascular history. Patient encouraged to follow up with her primary care provider. She will receive her next cycle today, follow-up in 3 weeks for the subsequent cycle, and have laboratory studies prior to next cycle as well. This was reviewed with the patient, she voiced understanding. I personally spent a total of 30 minute visit in counseling and coordinating care for Geeta Sadler. We discussed the plan and rationale for ongoing surveillance. Karuna Mccain MD . Karuna Mccain MD documented in this encounter Plan of Treatment Not on file documented as of this encounter Visit Diagnoses Diagnosis Adenocarcinoma of endometrium Malignant neoplasm of corpus uteri, except isthmus documented in this encounter Care Teams Hospitality Specialist Relationship Specialty Start Date End Date Pk Trevizo MD [address] [place] [address] PCP - General Emergency Medicine 05/02/21 documented as of this encounter
--- OUTSIDE RECORDS SUMMARY | 2024-04-14 12:55 | XMS_ITS | Encounter Summary ---
Author Organization [facility] [place] [address] Care Team Providers Care Nuclear Plant Operator Name Role Phone Pk Trevizo MD Primary Care Provider [phone] Encounter Details Date Type Department Care Team (Late st Contact Info) Description 12/21/2021 Telephone Gy[place] [phone] Tiana Benz RN Social History Tobacco Use [...] Telephone Encounter - Tiana Benz RN - 12/21/2021 1:49 PM EDT Received call back from patient. Asked if she had a chance to have her labs drawn. Patient states, I was supposed to? Informed the patient that the labs should be drawn 3 days before her chemo appointment and [facility] has standing orders. We need these labs to proceed with chemotherapy. Informed patient that we have set her up for a lab draw appointment from her arm at 8:15 AM on 12/22/21. Informed her that there is a chance that her labs would be abnormal and she would have to go home with out chemotherapy if this is the case. Patient verbalized understanding and states she will be here for herlab draw appointment. She denies any questions. * Telephone Encounter - Tiana Benz RN - 12/21/2021 1:00 PM EDT Called [facility] lab to request patient's lab results. They state the patient hasn't been there since 11/29/21. Attempted to call and speak with the patient. The voicemail is full. Called patient's listed contact (Yvrose) and reached voicemail. Left message requesting she have the patient call back [facility] at [phone] ext [phone]. documented in this encounter Plan of Treatment Not on file documented as of this encounter Visit Diagnoses Not on filedocumented in this encounter Care Teams Nuclear Plant Operator Relationship Specialty Start Date End Date Pk Trevizo MD [address] [place] [address] PCP - General Emergency Medicine 05/02/21 documented as of this encounter
--- OUTSIDE RECORDS SUMMARY | 2024-04-14 12:55 | XMS_ITS | Encounter Summary ---
Author Organization [facility] Address [facility] [place] [address] Care Team Providers Care Licensed Investment Sales Assistant Name Role Phone Pk Trevizo MD Primary Care Provider [phone] Reason for Visit * Treatment/Therapy Plan Authorization (Routine) - Closed Specialty Diagnoses / Procedures Referred By Contac t Referred To Contact Gynecology Oncology Diagnoses Adenocarcinoma of endometrium Procedures TC PALONOSETRON HCL, 25MCG, INJECTION (ALOXI) TC APREPITANT, 1 MG, INJECTION TC PACLITAXEL, 1MG, INJ TC CARBOPLATIN, 50MG, INJECTION (PARAPLATIN) Brian Vidales MD [facility] [place] [address] [facility] [employer] [address] [place] [address] Referral ID Status Reason Start Date Expiration Date Visits Re quested Visits Authorized [id number] Closed 11/21/2021 11/21/2022 99 99 Encounter Details Date Type Department Care Team (Latest Contact Info) Description 03/19/2022 9:41 AM EDT - 03/19/2022 11:59 PM EDT Hospital Encounter [place]ology [place] [address] Adenocarcinoma of endometrium Discharge Disposition: [...] as of this encounter Progress Notes * Tiffanie Vigil RN - 03/19/2022 1:05 PM EDT Patient Name: Geeta Sadler Patient Age: 57 y.o. Birthdate: 1965 Admit date: 03/19/2022 Attending Physician: No att. providers found Geeta Sadler, 57 y.o. female with diagnosis of endometrial cancer is here for chemotherapy infusion of Paclitaxel/Carboplatin. PROTOCOL: n/a CYCLE: 6 DAY: 12 S: Pt. offers no complaints at this time. Reviewed plan of care for infusion visit, patient verbalized understanding of plan as outlined. O: Chemotherapy orders independently verified for correct drug name, route and dosage per patient'sheight, weight and BSA by Tiffanie Vigil RN, RN and onsite pharmacist. Chemotherapy administered per protocol. REACTIONS (DESCRIPTION, TIME, INTERVENTION AND EFFECTIVENESS) none A: Pt. Tolerated treatment with out issue. Geeta Sadler confirms that all questions and [...] over 2 Minutes, ONCE, 1 dose, On Sat03/19/22 at 1330, Alternative administration of IV push over 2 minutes is a recommendation from the water carter. Administer prior to chemotherapy., Routine Given 03/19/2022 1:14 PM EDT 130 mg CARBOplatin (Paraplatin) 650 mg in dextrose 5% 315 mL infusion 650 mg (Target AUC = 5), Intravenous, ONCE, 1 dose, On Sat03/19/22 at 1730, Administer over 30 Minutes, Warning Vesicant/Irritant Medication New Bag 03/19/2022 5:52 PM EDT 650 mg 630 mL/hr dexAMETHasone (Decadron) 20 mg in sodium chloride 0.9% 50 mL infusion 20 mg, Intravenous, ONCE, 1 dose, On Sat03/19/22 at 1330, Administer over 10 Minutes, Administer 30 minutes prior to PACLitaxel New Bag 03/19/2022 1:19 PM EDT 20 mg 300 mL/hr diphenhydrAMINE (Benadryl) capsule 50 mg 50 mg, Oral, ONCE, 1 dose, On Sat03/19/22 at 1330, Administer 30 minutes prior to PACLitaxel, Routine Given 03/19/2022 1:13 PM EDT 50 mg famotidine (Pepcid) (10 mg/mL) injection 20 mg 20 mg, Intravenous, ONCE, 1 dose, On Sat03/19/22 at 1330, Administer 30 minutes prior to PACLitaxel Given 03/19/2022 1:14 PM EDT 20 mg heparin (pf) (porcine) (100 units/mL) flush 5 mL syringe 500 Units 500 Units, Intravenous, ONCE PRN, Starting on Sat03/19/22 at 0945, Until Sat03/20/22 at 0434, Line Care, Routine Given 03/19/2022 6:33 PM EDT 500 Units PACLitaxeL (Taxol) 378 mg in dextrose 5% Non-PVC 563 mL infusion 378 mg (175 mg/m2/dose ? 2.16 m2 Treatment Plan BSA from Recorded weight), Intravenous, ONCE, 1 dose, On Sat03/19/22 at 1430, Administer over 3 Hours, Warning Vesicant/Irritant Medication Initiate the PACLITAXEL infusion at ONE HALF the planned target infusion rate for the first 20 minutes. If tolerated, increase the infusion rate to the desired target rate, to complete the remaining infusion volume. New Bag 03/19/2022 2:25 PM EDT 378 mg 187.7 mL/hr palonosetron (Aloxi) (0.05 mg/mL) injection 0.25 mg 0.25 mg, Intravenous, ONCE, 1 dose, On Sat03/19/22 at 1330, Administer over 30 seconds., Routine Given 03/19/2022 1:14 PM EDT 0.25 mg documented in this encounter Care Teams Licensed Investment Sales Assistant Relationship Specialty Start Date End Date Pk Trevizo MD [address] [place] [address] PCP - General Emergency Medicine 05/02/21 documented as of this encounter
--- OUTSIDE RECORDS SUMMARY | 2024-04-14 12:55 | XMS_ITS | Encounter Summary ---
[place] [address] Care Team Providers Care Beauty Artist Name Role Phone Pk Trevizo MD Primary Care Provider [phone] Encounter Details Date Type Department Care Team (Latest Contact Info) Description 11/06/2022 Travel Social History Tobacco Use Types Packs/Day [...] on filedocumented in this encounter Care Teams Beauty Artist Relationship Specialty Start Date End Date Pk Trevizo MD [address] [place] [address] PCP - General Emergency Medicine 05/02/21 documented as of this encounter
--- OUTSIDE RECORDS SUMMARY | 2024-04-14 12:55 | XMS_ITS | Encounter Summary ---
Author Organization [facility] [place] [address] Care Team Providers Care Sider Mechanic Name Role Phone Pk Trevizo MD Primary Care Provider Encounter Details Date Type Department Care Team (Late st Contact Info) Description 01/10/2022 Orders Only Gyne[place] [address] Brian Vidales MD [facility] DR [place] [address] Social History Tobacco Use Types Packs/Day Years [...] on filedocumented in this encounter Care Teams Sider Mechanic Relationship Specialty Start Date End Date Pk Trevizo MD [address] [place] [address] PCP - General Emergency Medicine 05/02/21 documented as of this encounter
--- OUTSIDE RECORDS SUMMARY | 2024-04-14 12:55 | XMS_ITS | Encounter Summary ---
Author Organization [facility] [place] [address] Care Team Providers Care Contract Engineer Name Role Phone Pk Trevizo MD Primary Care Provider Encounter Details Date Type Department Care Team (Late st Contact Info) Description 02/28/2022 Telephone [place] [phone] Roslyn Gandhi Social History Tobacco Use Types [...] on filedocumented in this encounter Care Teams Contract Engineer Relationship Specialty Start Date End Date Pk Trevizo MD [address] [place] [address] PCP - General Emergency Medicine 05/02/21 documented as of this encounter
--- OUTSIDE RECORDS SUMMARY | 2024-04-14 12:55 | XMS_ITS | Encounter Summary ---
Author Organization Count Includes [facility] Address [facility] [place] [address] Care Team Providers Care Solutions Executive Security Name Role Phone Pk Trevizo MD Primary Care Provider [phone] Reason for Visit * Reason Comments Chemotherapy * Treatment/Therapy Plan Authorization (Routine) - Closed Specialty Diagnoses / Procedures Referred By Controsamaria t Referred To Contact Gynecology Oncology Diagnoses Adenocarcinoma of endometrium Procedures TC PALONOSETRON HCL, 25MCG, INJECTION (ALOXI) TC APREPITANT, 1 MG, INJECTION TC PACLITAXEL, 1MG, INJ TC CARBOPLATIN, 50MG, INJECTION (PARAPLATIN) Brian Vidales MD [facility] [place] [address] [facility] M[facility] [address] [place] [address] Referral ID Status Reason Start Date Expiration Date Visits Re quested Visits Authorized [id number] Closed 11/21/2021 11/21/2022 99 99 Encounter Details Date Type Department Care Team (Latest Contact Info) Description 02/02/2022 8:56 AM EDT - 02/02/2022 11:59 PM EDT Hospital Encounter Hematology [place] [address] Adenocarcinoma of endometrium Discharge Disposition: [...] Sign Reading Time Taken Comments Blood Pressure 154/84 02/02/2022 9:21 AM EDT Pulse 64 02/02/2022 9:21 AM EDT Temperature 36.2 ??C (97.1 ??F) 02/02/2022 9:16 AM ED T Respiratory Rate 20 02/02/2022 9:21 AM EDT Oxygen Saturation 94% 02/02/2022 9:21 AM EDT Inhaled Oxygen Concentration - - Weight 105.1 kg (231 lb 9.6 oz) 02/02/2022 9:21 AM EDT Height 164 cm (5' 4.57) 02/02/2022 9:21 AM EDT Body Mass Index 39.06 02/02/2022 9:21 AM EDT documented in this encounter Medications at Time [...] as of this encounter Progress Notes * Nayeli Alcantara RN - 02/02/2022 6:13 PM EDT TIME TREATMENT STARTED: 912 TIME TREATMENT ENDED: 1514 Geeta Sadler, 57 y.o. female with diagnosis of endometrial CA is here for chemotherapy infusionof taxol/carboplatin. PROTOCOL: no CYCLE: 4 WEEK: DAY: 1 S: I have constipation O: Denies n/v/d, mouth sores, rashes, neuropathy, hearing changes LAB DATA: Within acceptable limits for chemo. IV ACCESS: port HYDRATION: none ANTIEMETICS/PREMEDS: See MAR CHEMOTHERAPY: See above Chemotherapy orders independently verified for drug name, route and dosage per patient's height, weight and BSA by Nayeli Alcantara RNC and RPharmacist REACTIONS (DESCRIPTION, TIME, INTERVENTION AND EFFECTIVENESS) none A: Pt. Tolerated treatment well. Geeta Krystal Sadler confirms that all questions and issues [...] over 2 Minutes, ONCE, 1 dose, On Sat02/02/22 at 0945, Alternative administration of IV push over 2 minutes is a recommendation from the thermospray operator. Administer prior to chemotherapy., Routine Given 02/02/2022 9:50 AM EDT 130 mg CARBOplatin (Paraplatin) 750 mg in dextrose 5% 325 mL infusion 750 mg (Target AUC = 5), Intravenous, ONCE, 1 dose, On Sat02/02/22 at 1345, Administer over 30 Minutes, Warning Vesicant/Irritant Medication New Bag 02/02/2022 2:32 PM EDT 750 mg 650 mL/hr dexAMETHasone (Decadron) 20 mg in sodium chloride 0.9% 50 mL infusion 20 mg, Intravenous, ONCE, 1 dose, On Sat02/02/22 at 0945, Administer over 10 Minutes, Administer 30 minutes prior to PACLitaxel New Bag 02/02/2022 9:55 AM EDT 20 mg 300 mL/hr diphenhydrAMINE (Benadryl) capsule 50 mg 50 mg, Oral, ONCE, 1 dose, On Sat02/02/22 at 0945, Administer 30 minutes prior to PACLitaxel, Routine Given 02/02/2022 9:41 AM EDT 50 mg famotidine (Pepcid) (10 mg/mL) injection 20 mg 20 mg, Intravenous, ONCE, 1 dose, On Sat02/02/22 at 0945, Administer 30 minutes prior to PACLitaxel Given 02/02/2022 9:45 AM EDT 20 mg heparin (pf) (porcine) (100 units/mL) flush 5 mL syringe 500 Units 500 Units, Intravenous, ONCE PRN, Starting on Sat02/02/22 at 0917, Until 02/03/22 at 0433, Line Care, Refer to Intravenous (IV) Procedure: Accessing Implanted Vascular Access Devices (134) procedure and/or Intravenous (IV) Job Aid: Adult Flushing & Catheter Care (8318) job aid for additional information regarding guidelines and administration., Routine Given 02/02/2022 3:09 PM EDT 500 Units PACLitaxeL (Taxol) 378 mg in sodium chloride 0.9% Non-PVC 563 mL infusion 378 mg (175 mg/m2/dose ? 2.16 m2 Treatment Plan BSA from Recorded weight), Intravenous, ONCE, 1 dose, On Sat02/02/22 at 1045, Administer over 3 Hours, Warning Vesicant/Irritant Medication New Bag 02/02/2022 11:08 AM EDT 378 mg 187.7 mL/hr palonosetron (Aloxi) (0.05 mg/mL) injection 0.25 mg 0.25 mg, Intravenous, ONCE, 1 dose, On Sat02/02/22 at 0945, Administer over 30 seconds., Routine Given 02/02/2022 9:44 AM EDT 0.25 mg sodium chloride 0.9 % (flush) (BD PosiFlush Normal Saline 0.9) flush 5-20 mL 5-20 mL, Intravenous, EVERY 1 MIN PRN, Starting on 02/02/22 at 0917, Until 02/03/22 at 0433, Line Care, Flush pertains to all indwelling lines. Flush per protocol found in the job aid using the link provided on this medication record. Refer to Intravenous (IV) Job Aid: Adult Flushing & Catheter Care (9289) job aid for additional information regarding guidelines and administration., Routine Given 02/02/2022 3:09 PM EDT 20 mLs documented in this encounter Care Teams Solutions Executive Security Relationship Specialty Start Date End Date Pk Trevizo MD [address] [place] [address] PCP - General Emergency Medicine 05/02/21 documented as of this encounter
--- OUTSIDE RECORDS SUMMARY | 2024-04-14 12:55 | XMS_ITS | Encounter Summary ---
Author Organization [facility] [place] [address] Care Team Providers Care Straddle Truck Operator Name Role Phone Pk Trevizo MD Primary Care Provider [phone] Encounter Details Date Type Department Care Team (Late st Contact Info) Description 03/16/2022 Telephone [place] [phone] Tiana Benz RN Social History Tobacco Use [...] Telephone Encounter - Tiana Benz RN - 03/16/2022 4:00 PM EDT Called and spoke with patient with patient. Discussed with patient that she needs to come in for lab work on 03/19 at 9:30. Patient verbalizes understanding and denies any questions at this time. * Telephone Encounter - Tiana Benz RN - 03/16/2022 12:32 PM EDT Need patient to come in for blood draw on Saturday morning prior to chemo. Called pt but reached voicemail. Left message requesting a call back. documented in this encounter Plan of Treatment Not on file documented as of this encounter Visit Diagnoses Not on filedocumented in this encounter Care Teams Straddle Truck Operator Relationship Specialty Start Date End Date Pk Trevizo MD [address] [place] [address] PCP - General Emergency Medicine 05/02/21 documented as of this encounter
--- OUTSIDE RECORDS SUMMARY | 2024-04-14 12:55 | XMS_ITS | Encounter Summary ---
Author Organization [facility] Address [facility] [place] [address] Care Team Providers Care Motion Picture Scene Builder Name Role Phone Pk Trevizo MD Primary Care Provider [phone] Reason for Visit * Reason Comments Chemotherapy Encounter Details Date Type Department Care Team (Latest Contact Info) Description 12/22/2021 9:20 AM EDT Office Visit [place] [id number] Brian Vidales MD [facility] [place] [address] Adenocarcinoma of endometrium Social History Tobacco Use [...] Sign Reading Time Taken Comments Blood Pressure 158/102 12/22/2021 9:52 AM EDT Pulse 99 12/22/2021 8:46 AM EDT Temperature 36.4 ??C (97.5 ??F) 12/22/2021 8:46 AM ED T Respiratory Rate 22 12/22/2021 8:46 AM EDT Oxygen Saturation 98% 12/22/2021 8:46 AM EDT Inhaled Oxygen Concentration - - Weight 102.1 kg (225 lb) 12/22/2021 8:46 AM EDT Height - - Body Mass Index 37.44 11/13/2021 1:09 PM EDT documented in this encounter Progress Notes * Brian Vidales MD - 12/22/2021 9:20 AM EDT Division [place] [address] Gynecologic Oncology-Clinic Note Reason for visit: Cycle #2, paclitaxel/carboplatin, adjuvant therapy for her advanced endometrial [...] needed for Pain. 10/20/21 Alyson Bailey MD oxyCODONE (Roxicodone) 5 mg Tablet Take 1 tablet by mouth every 4 hours as needed for Pain. Patient not taking: Reported on 11/13/2021 10/20/21 Alyson Bailey MD polyethylene glycoL (Miralax) 17 gram Powder in Packet Take 17 g by mouth daily as needed. Patient not taking: Reported on 11/13/2021 10/20/21 Alyson Bailey MD insulin glargine-yfgn (Semglee,insulin glarg-yfgn,Pen) 100 unit/mL (3 mL) Insulin Pen Inject 12 Units subcutaneously every morning. Patient not taking: Reported on 11/13/2021 10/20/21 11/13/21 Alyson Bailey MD insulin needles, disposable, (BD Ultra-Fine Short Pen Needle) 31 gauge x 5/16 Needle 1 Pen by Mis.(Non-Drug; Combo Route) route daily. Patient not taking: Reported on 11/13/2021 10/20/21 11/13/21 Alyson Bailey MD insulin lispro (humaLOG KwikPen) 100 unit/mL Insulin Pen Inject 0-8 Units subcutaneously 3 times daily (before meals). Patient not taking: Reported on 11/13/2021 10/20/21 11/13/21 Alyson Bailey MD insulin needles, disposable, (BD Ultra-Fine Short Pen Needle) 31 gauge x 5/16 Needle 1 Pen by [facility].(Non-Drug; Combo Route) route 3 times daily. Patient not taking: Reported on 11/13/2021 10/20/21 11/13/21 Alyson Bailey MD nicotine (Nicoderm CQ) 21 [...] IIIc, grade 3 (high-grade endometrioid) endometrial cancer. On 10/17/2021, she underwent a total laparoscopic/robotic hysterectomy, BSO, omental biopsy, sentinel lymph node mapping and biopsy. The surgery was complicated by vascular injury to her left pelvickidney while manipulating this area for lymphadenectomy. This was converted to a small laparotomy, initially evaluated by vascular surgery, then by urology, who performed a nephorrhaphy, and placed astent. EBL at surgery was 700 mL, mostly related to the left pelvic kidney injury. Postoperatively,she did well, with no obvious remaining deficits to her kidney function, nor any leak. Intraoperative findings with respect to gynecology or as follows: Laparoscopy: Normal upper abdomen. The inferior portion of the omentum was densely adherent to the uterus, where there were tumor implants on the anterior lower uterine segment suggestive of full-thickness invasion of the tumor through the uterus with peritoneal spread. Similarly, the posterior aspect of the uterus was involved with colon with dense adhesions of the sigmoid colon. The ovaries were adherent but otherwise grossly normal. Several enlarged right pelvic lymph nodes were seen and excised. The uterus was extremely large and involved with tumor, and was withdrawn in a piecemeal fashion through the vagina well-contained in an Endo Catch bag. There was a left pelvic kidney, overlying the left pelvic sidewall and external iliac vessels, which is seen some injury to the veins of the hilum during manipulation. Initially, it was thought that this might represent an aneurysm of the left external iliac artery, but vascular surgery verified, after laparotomy, that it was a low-lying left pelvic kidney. This was subsequently repaired by the urology service, which is described separately in the procedures below. Today, she says she generally feels well, with good appetite, nominal bowel and bladder function. She has no vaginal bleeding. She denies any sensory deficits in her legs related to the lymph node procedures. She has no peripheral neuropathy. She had questions about her alopecia and management. Shehad laboratory studies, which are adequate for treatment. Review of systems: 7 systems in total reviewed, otherwise negative. Vital signs: BP (!) 158/102 (BP Location (NBP): Left arm, Patient Position: Sitting) Pulse 99 Temp 36.4 ??C (97.5 ??F) (Temporal) Resp 22 Wt 102.1 kg (225 lb) SpO2 98% BMI 37.44 kg/m?? Physical examination: General: Somewhat soiled clothing, but otherwise well-groomed, occasionally tangential but certainly redirectable. She moves easily to and from the exam room without obvious limitation. HEENT: Partial alopecia, pupils equal, no icterus. Abdomen: The laparoscopic port sites are well approximated, with several retained eschars. The abdomen is nontender. There are no obvious hernias. Pelvic exam: Deferred. Extremities: Symmetric, no edema. [...] MD Verified: 11/01/2021 16:02 Pathologist Performed at: -[facility] [place] Dept. [place]ology, [place], [place] Specimen Procedure: Total hysterectomy and [...] Nodes with Macrometastasis: 1 Number of Pelvic [place] Nodes with Macrometastasis: 0 Total Number of Pelvic Nodes with Micrometastasis: 0 Number of Pelvic [place] Nodes with Micrometastasis: 0 Laterality of Pelvic Node(s) with Tumor: Left non-sentinel Size of Largest Pelvic [place] Metastatic Deposit: 4 mm Lymph Nodes Examined Total Number of Pelvic Nodes Examined: 3 Number of Pelvic [place] Nodes Examined: 3 Total Number of Para-aortic Nodes Examined: 0 Distant Metastasis Distant Site(s) Involved: Omentum - focally present in omental adhesion Pathologic Stage Classification (pTNM, AJCC 8th Edition) pT Category: pT3a pN Category: pN1a FIGO Stage FIGO Stage: IIIC1 Additional Findings Additional Findings: None identified Tumor Block(s): [address] May 2021 Release Laboratory studies: Adequate [...] which needs removal at the appropriate interval. Today, I reviewed that she has a high risk endometrial cancer, and will benefit from additional therapy. Specifically, after presentation at tumor board, we unanimously agreed on adjuvant carboplatin/paclitaxel, 6 cycles. Although initially hesitant at the recommendation for chemotherapy, she elected to move forward. Although initially she told us she would like to be treated here, due to travel constraints, she requested transfer of care to [facility]. Unfortunately, they cannot accommodate any more patients at that location. She will receive her next cycle today, follow-up in 3 weeks for the subsequent cycle, and have laboratory studies prior to next cycle as well. This was reviewed with the patient, she voiced understanding. documented in this encounter Plan of Treatment Not on file documented as of this encounter Visit Diagnoses Diagnosis Adenocarcinoma of endometrium Malignant neoplasm of corpus uteri, except isthmus documented in this encounter Care Teams Motion Picture Scene Builder Relationship Specialty Start Date End Date Pk Trevizo MD [address] [place] [id number] PCP - General Emergency Medicine 05/02/21 documented as of this encounter
--- OUTSIDE RECORDS SUMMARY | 2024-04-14 12:55 | XMS_ITS | Encounter Summary ---
Author Organization [facility] Address [facility] [address] Care Team Providers Care Crown Assembly Machine Operator Name Role Phone Pk Trevizo MD Primary Care Provider [phone] Reason for Visit * Reason Comments Established Overdue for 3 mth ck Encounter Details Date Type Department Care Team (Latest Contact Info) Description 11/06/2022 10:40 AM EDT Office Visit [place] [address] Brian Vidales MD [facility] [place] [address] Adenocarcinoma of endometrium Social History Tobacco Use [...] Sign Reading Time Taken Comments Blood Pressure 151/80 11/06/2022 10:57 AM EDT Pulse 69 11/06/2022 10:57 AM EDT Temperature 36.4 ??C (97.5 ??F) 11/06/2022 1 0:57 AM EDT Respiratory Rate 24 11/06/2022 10:5 7 AM EDT Oxygen Saturation 97% 11/06/2022 10: 57 AM EDT Inhaled Oxygen Concentration - - Weight 119.8 kg (264 lb 3.2 oz) 023 10:57 AM EDT Height 164 cm (5' 4.57) 11/06/2022 10: 57 AM EDT Body Mass Index 44.56 11/06/2022 10:57 AM EDT documented in this encounter Progress Notes * Brian Vidales MD - 11/06/2022 10:40 AM EDT Division [place] [address] Gynecologic Oncology-Clinic Note Reason for visit: Surveillance visit, history of FIGO stage IIIc, grade 3 (high- grade endometrioid)endometrial cancer Patient Active Problem List Diagnosis Code ??? [...] Pain. Patient not taking: Reported on 11/13/2021 4/22/22 Alyson Bailey MD polyethylene glycoL (Miralax) 17 [...] gauge x 5/16 Needle 1 Pen by [facility].(Non-Drug; Combo Route) route daily. Patient not taking: Reported on 11/13/2021 10/20/21 11/13/21 Alyson Bailey MD insulin lispro (humaLOG KwikPen) 100 unit/mL Insulin Pen Inject 0-8 Units subcutaneously 3 times daily (before meals). Patient not taking: Reported on 11/13/2021 10/20/21 11/13/21 Alyson Bailey MD insulin needles, disposable, (BD Ultra-Fine Short Pen Needle) 31 gauge x 5/16 Needle 1 Pen by [facility].(Non-Drug; Combo Route) route 3 times daily. Patient [...] Geeta is a very nice 57 y.o. returns today with her daughter, Yvrose, [...] is described separately in the procedures below. After surgery, recommended as per therapy. She received 6 cycles of paclitaxel/carboplatin, completing on 03/19/2022. Her posttreatment CT showed some prominent aortic nodes, and follow-up was recommended. Today, she says she generally feels well, [...] total reviewed, otherwise negative. Vital signs: BP 151/80 (Patient Position: Sitting) Pulse 69 Temp 36.4 ??C (97.5 ??F) (Temporal) Resp 24 Ht 164 cm (5' 4.57) Wt 119.8 kg (264 lb 3.2 oz) SpO2 97% BMI 44.56 kg/m?? Physical examination: General: Somewhat soiled clothing, but otherwise well-groomed, occasionally tangential but certainly redirectable. She moves easily to and from the exam room without obvious limitation. HEENT: Partial alopecia, pupils equal, no icterus. Abdomen: The laparoscopic port sites are well approximated, with several retained eschars. The abdomen is nontender. There are no obvious hernias. Pelvic exam: Normal external genitalia, no lesions of the vulva, perineal body, or perianal area. Speculum examination demonstrates a slightly atrophic vagina, surgically absent cervix. On bimanual examination, there is no obvious mass, nodularity, or tenderness. Rectovaginal exam confirms the above. Extremities: Symmetric, no edema. Pathology: 10/18/2021 Molecular [...] MD Verified: 11/01/2021 16:02 Pathologist Performed at: -[facility] Dept. of Pathology, [place], [place] Specimen Procedure: Total hysterectomy and [...] Nodes with Macrometastasis: 1 Number of Pelvic [place] Nodes with Macrometastasis: 0 Total Number of Pelvic Nodes with Micrometastasis: 0 Number of Pelvic [place] Nodes with Micrometastasis: 0 Laterality of Pelvic Node(s) with Tumor: Left non-sentinel Size of Largest Pelvic [place] Metastatic Deposit: 4 mm Lymph Nodes Examined Total Number of Pelvic Nodes Examined: 3 Number of Pelvic [place] Nodes Examined: 3 Total Number of Para-aortic Nodes Examined: 0 Distant Metastasis Distant Site(s) Involved: Omentum - focally present in omental adhesion Pathologic Stage Classification (pTNM, AJCC 8th Edition) pT Category: pT3a pN Category: pN1a FIGO Stage FIGO Stage: IIIC1 Additional Findings Additional Findings: None identified Tumor Block(s): [address] May 2021 Release Laboratory studies: Adequate for treatment today. Impression/plan: Geeta is a 57 y.o.-year-old with a new diagnosis of FIGO [...] which needs removal at the appropriate interval. Due to high risk endometrial cancer, high stage/grade, recommended adjuvant chemotherapy. She completed chemotherapy, and is now on active surveillance. Today, there is no evidence of recurrent disease, based upon the lack of any concerning symptoms or findings on the visit today. Her posttreatment CT showed some prominent lymph nodes and follow-up was recommended. Therefore, wewill order the CT of the chest, abdomen pelvis. In accordance with surveillance guidelines, some no evidence of recurrent on the CT, she will follow-up in 3 months, accordance with SGO surveillance guidelines as outlined below. (Current Society of Gynecologic Oncologists (SGO) Surveillance Guidelines: 1. Posttreatment surveillance and diagnosis of recurrence in women with gynecologic malignancies: Society of Gynecologic Oncologists recommendations (Lamonte et al., Am J Obstet Gynecol. 2011 Federico; 204(6):466-78.) 2. An update on post-treatment surveillance and diagnosis of recurrence in women with gynecologic malignancies: Society of Gynecologic Oncology (SGO) recommendations. (alcides Aburto. Al., Gynecologic Oncology December 2016 Volume 146, Issue 1, Pages 3-10. 3. Choosing Wisely: Society of Gynecologic Oncologists: Five Things Physicians and Patients Should Question http://www.choosingwisely.org/societies/imemwwy-xv-ssnvnmvrnmq-oncology/ In the interval between visits, she has been counseled to report any symptoms typical of recurrent disease, which were reviewed with her today, and she voices an understanding the above. * Katie Ricardo LNA - 11/06/2022 10:40 AM EDT Examination chaperoned by DOROTHY NORRIS. 11/06/22 In the [facility] clinic. documented in this encounter Plan of Treatment Not on file documented as of this encounter Visit Diagnoses Diagnosis Adenocarcinoma of endometrium Malignant neoplasm of corpus uteri, except isthmus documented in this encounter Care Teams Crown Assembly Machine Operator Relationship Specialty Start Date End Date Pk Trevizo MD [address] [place] [address] PCP - General Emergency Medicine 05/02/21 documented as of this encounter
--- OUTSIDE RECORDS SUMMARY | 2024-04-14 12:56 | XMS_ITS | Encounter Summary ---
Author Organization [facility] [place] [address] Care Team Providers Care Monogram And Letter Paster Name Role Phone Pk Trevizo MD Primary Care Provider Encounter Details Date Type Department Care Team (Late st Contact Info) Description 11/30/2021 Orders Only [place] [address] Brian Vidales MD [facility] [place] [address] Social History Tobacco Use Types Packs/Day Years [...] on filedocumented in this encounter Care Teams Monogram And Letter Paster Relationship Specialty Start Date End Date Pk Trevizo MD [address] [place] [address] PCP - General Emergency Medicine 05/02/21 documented as of this encounter
--- OUTSIDE RECORDS SUMMARY | 2024-04-14 12:56 | XMS_ITS | Encounter Summary ---
Author Organization [facility] [place] [address] Care Team Providers Care Email Marketing Manager Name Role Phone Pk Trevizo MD Primary Care Provider Encounter Details Date Type Department Care Team (Late st Contact Info) Description 12/20/2021 Orders Only [place] [address] Brian Vidales MD [facility] [place] [address] Social History Tobacco Use Types Packs/Day Years [...] on filedocumented in this encounter Care Teams Email Marketing Manager Relationship Specialty Start Date End Date Pk Trevizo MD [address] [place] [address] PCP - General Emergency Medicine 05/02/21 documented as of this encounter
--- OUTSIDE RECORDS SUMMARY | 2024-04-14 12:56 | XMS_ITS | Encounter Summary ---
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 Name Role Phone Pk Trevizo MD Primary Care Provider [phone] Reason for Visit * Auth/Cert Specialty Diagnoses / Procedures Referred By Kit iglesias Referred To Contact Diagnoses ENDOMETRIAL CANCER Procedures PRO LAPAROSCOPY W TOT HYSTERECTUTERUS <=250 GRAM W TUBE/OVARY PRO LAP, PELVIC LYMPHADENECTOMY/BX PRO INTRAOP SENTINEL LYMPH ID W/DYE INJECTION LAPAROSCOPY,TOTAL HYST, UTERUS<250GM, REM TUBE &/OR OVARY, ROBOTIC ASSIST (WRVU 15) LAPAROSCOPY,W\BILATERAL TOTAL PELVIC LYMPHADENECTOMY, PERIAORTIC LYMPH NODE SAMPLING, ROBOTIC (WRVU 15.6) INTRAOPERATIVE ID (MAPPING) SENTINEL LYMPH NODE,INCLUDES INJECTION (WRVU 2.5) MODIFIER ROBOT,DAVINCI XI Referral ID Status Reason Start Date Expiration Date Visits Re quested Visits Authorized [id number] 1 Encounter Details Date Type Department Care Team (Latest Contact Info) Description 10/17/2021 9:37 AM EDT - 10/20/2021 12:00 PM EDT Hospital Encounter [address] [place] [address] Brian Pollock MD [facility] GYNECOLOGY ONCOLOGY [place], [place] [address] Cigarette smoker; Adenocarcinoma of endometrium Discharge Disposition: Home Social [...] Sign Reading Time Taken Comments Blood Pressure 151/71 10/20/2021 7:41 AM EDT Pulse 95 10/19/2021 8:47 AM EDT Temperature 37 ??C (98.6 ??F) 10/20/2021 7:41 AM EDT Respiratory Rate 18 10/20/2021 3:35 AM EDT Oxygen Saturation 91% 10/20/2021 7:41 AM EDT Inhaled Oxygen Concentration - - Weight 101.2 kg (223 lb 1.7 oz) 10/20/2021 3:35 AM EDT Height 165.1 cm (5' 5) 10/17/2021 10:4 3 AM EDT Body Mass Index 37.13 10/17/2021 10:43 AM EDT documented in this encounter Discharge Summaries * Alyson Bailey MD - 10/19/2021 12:22 PM EDT Images from the original note were not included. Discharge Summary Patient Name: Geeta Sadler Patient Age: 56 y.o. Language: Micronesian Race: White Ethnicity: Not nor Admit date: 10/17/2021 Discharge date and time: 10/20/2021 Attending Physician: Brian Pollock MD Discharge Physician: Brian Pollock MD Follow-up Recommendations for Providers: -Follow-up with Dr. Trevizo on 10/31/21 at 11:00AM -Follow-up with Dr Brian Pollock on 11/13/2021 at 1pm at [facility] -Follow-up with Dr. Cole (Urology) in 4-6 weeks will be arranged for ureteral stent removal Inpatient Provider Contact Information: Dr. Brian Pollock [facility] Gynecologic Oncology, Discharge Diagnoses (Hospital Problems) and Secondary Diagnoses (Chronic Problems): Active Hospital Problems Diagnosis ??? Post-operative state Resolved Hospital Problems No resolved problems to display. Active Non-Hospital Problems Diagnosis ??? Cigarette smoker ??? Adenocarcinoma of endometrium ??? Stenosis of right carotid artery greater than 50% ??? Hypertension ??? Obesity ??? Abnormal vaginal bleeding with endometrial thickness greater than 5 mm present on transvaginal ultrasound in postmenopausal patient Operations/Major Procedures: 10/17/2021: robotic-assisted total laparoscopic hysterectomy with bilateral salpingo-oophorectomy, and sentinel lymph node dissection with exploratory laparotomy by vascular surgery due to concern forvascular injury, diagnosed as an injury for a pelvic kidney, with nephrorrhaphy, cystoscopy and left ureteral stent placement by Urology History of Presentation: Geeta Sadler is a very nice 56 y.o. white female, para 2. She's been menopausal since her 50s. She developed postmenopausal bleeding in March 2021, but did not immediately seek evaluation. She had a stroke about that time. She was anticoagulated. She was started on progestin therapy, and continues on low-dose norethindrone presently. ?? More recently, she underwent a right carotid endarterectomy last week. She was started on aspirin. She is not anticoagulated and is not on antiplatelet therapy. ?? An endometrial biopsy was performed on 09/08/2021. This showed: DIAGNOSIS Endometrium, biopsy: ??- Adenocarcinoma, favor endometrioid type (see Discussion). ??- Background endometrium with stromal progestin effect. DISCUSSION The specimen is predominantly blood clot [...] this biopsy and may not be fully service liaison representative of the entire lesion. ??Definitive tumor classification and grading should be made upon evaluation of the ??entire lesion in a larger surgical specimen. ?? Currently she reports that she continues to have intermittent vaginal bleeding. She continues on norethindrone. She reports that her appetite is fair. She has intermittent constipation, but now having loose stools, denies hematochezia or melena. She has occasional mild stress urinary incontinence, which is not limiting. She denies hematuria ordysuria. She has had no new leg swelling. ?? Regarding pain, she has intermittent cramping pain prior to bleeding episodes. ?? Although counseled to stop smoking, she continues to smoke regularly, has no definitive cessation plan or stop date in mind. Hospital Course: Geeta Sadler was admitted through Same Day Surgery and underwent the above procedures complicated by left pelvic kidney injury with subsequent repair and left ureteral stent placement. EBL was 700mL. 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 Exam under anesthesia: Enlarged firm nodular uterus, normal-appearing cervix. 2. Laparoscopy: Normal upper abdomen. The inferior portion of the omentum was densely adherent to the uterus, where there were tumor implants on the anterior lower uterine segment suggestive of full-thickness invasion of the tumor through the uterus with peritoneal spread. Similarly, the posterior aspect of the uterus was involved with colon with dense adhesions of the sigmoid colon. The ovaries w ere adherent but otherwise grossly normal. Several enlarged [...] is described separately in the procedures below. 3. [place] lymph node mapping: A left and right sentinel lymph node was identified and excised, and sent for SLN protocol. - No gross residual disease. Vascular Surgery: Left flank incision performed to explore the mass in question in the left lower quadrant found during laparoscopic procedure. We elevated the peritoneum off of the iliac vessels andfound that the mass was not involved with the iliac vessels on the left. We then entered the peritoneal cavity. We identified the mass in question and explored it. Upon palpation it was pulsatile. There was a tubular structure entering it which appeared to be the ureter. We ultimately identified the mass as a low lying left kidney. We then consulted urology for further evaluation. Please see Dr. Cole's operative report for more information. Urology: Pelvic kidney with incision and lower pole and exposure of collecting system with collecting system entry. The collecting system was closed hemostasis was achieved the renography was closed. Postoperatively the patient was taken to PACU and on POD #0 was transferred to the floor. Post-operative course was complicated by persistent hyperglycemia and new diagnosis of T2 Diabetes.On POD#0-1 she had persisten hyperglycemia thus insulin gtt started overnight and Diabetes Management team consulted. Her glucose improved, HgA1C 8, insulin gtt transitioned to ISS scale on POD#1. She met with Diabetes Management team and educator and discharge plan is to continue to take 12u Lantus I nthe morning, with Novolog as correction. Otherwise, post-operative recovery was uncomplicated. She did have acute on chronic anemia (emily 6.5) likely due to malignancy and surgical blood loss, she remained relatively asymptomatic and was transfused 1UPRBC during this admission. Hgb was 8.3 atdischarge. The patient was able to tolerate a regular diet and ambulate without difficulty. Alberto catheter wasremoved on POD#2 and she was able to void without issue. LLQ drain creatinine was checked on POD#2 and then removed on POD#3. Their pain was well-controlled on oral medications by the time of discharge. The patient was discharged home on POD #3 in stable condition with follow-up in place. We discussed discharge instructions and plan of care, all questions answered. Due to their post-operative pain the patient was given a prescription for oxycodone to take only for breakthrough pain not responsive to acetaminophen and ibuprofen. The patient was counseled regarding the dangers of these medications including sedation which would impair their ability to drive safely. The potential for addiction with continued use of narcotic was discussed and the need to stop use as soon as possible. It was recommended that the patient promptly destroy unused medication or take them back to drop box locations. The opioid risk assessment was done, opioid informed consent reviewed and signed by patient, PDMP query completed. Discharge instructions discussing the risk of opioids are included in their discharge instructions which are printed and given to the patient at discharge. Vital signs at Discharge: BP: 151/71, Heart Rate: 95, Temp: 37 ??C (98.6 ??F), Resp: 18, BMI (Calculated): 36.59 Height: 165.1 cm (5' 5) (10/17/21 1043) Weight: 101.2 kg (223 lb 1.7 oz) (10/20/21 0335) Functional and Cognitive status: intact Important Studies and Lab Data: Labs: Last wbc, hgb, hct plt Recent Labs 10/20/21 1042 WBC 14.4* HGB 8.3* HCT 26.0* HgA1c 10/18/21: 8 Drain creatinine 10/19/21: 0.9 Studies: none Pending Studies and Lab Data: Final pathology PEND Discharge Conditions/Prognosis: good Discharge to: Home Updated Allergies/ADRs: No Known Allergies Immunizations Given this Hospitalization: There is no immunization history on file for this patient. Discharge Medications: Your Medications New Medications Dose Details acetaminophen 325 mg Tab Commonly known as: Tylenol Take 2 tablets by mouth every 6 hours as needed for Pain. Replaces: acetaminophen 325 mg Cap 650 mg Quantity: 30 tablet Refills: 0 docusate sodium 100 mg Cap Commonly known as: Colace Take 1 capsule by mouth 2 times daily for 15 days. 100 mg Quantity: 30 capsule Refills: 1 ibuprofen 600 mg Tab Commonly known as: Advil Take 1 tablet by mouth every 6 hours as needed for Pain. 600 mg Quantity: 40 tablet Refills: 3 insulin lispro 100 unit/mL Inpn Commonly known as: humaLOG KwikPen Inject 0-8 Units subcutaneously 3 times daily (before meals). 0-8 Units Quantity: 6 mL Refills: 3 * insulin needles (disposable) 31 gauge x 5/16 Ndle Commonly known as: BD Ultra-Fine Short Pen Needle 1 Pen by Misc.(Non-Drug; Combo Route) route daily. 1 Pen Quantity: 30 each Refills: 3 * insulin needles (disposable) 31 gauge x 5/16 Ndle Commonly known as: BD Ultra-Fine Short Pen Needle 1 Pen by Misc.(Non-Drug; Combo Route) route 3 times daily. 1 Pen Quantity: 90 each Refills: 3 OneTouch Delica Lancets 30 gauge Misc 1 each by Other route 3 times daily. Indications: diabetes mellitus Generic drug: lancets 1 each Quantity: 300 each Refills: 3 OneTouch Verio test strips Strp 1 each by Other route 3 times daily. Use as instructed Indications: diabetes mellitus Generic drug: blood sugar diagnostic strips 1 each Quantity: 300 each Refills: 3 oxyCODONE 5 mg Tab Commonly known as: Roxicodone Take 1 tablet by mouth every 4 hours as needed for Pain. 5 mg Quantity: 10 tablet Refills: 0 polyethylene glycoL 17 gram Pwpk Commonly known as: Miralax Take 17 g by mouth daily as needed. 17 g Quantity: 14 each Refills: 2 Semglee(insulin glarg-yfgn)Pen 100 unit/mL (3 mL) Inpn Inject 12 Units subcutaneously every morning. 12 Units Quantity: 3 mL Refills: 3 * This list has 2 medication(s) that are the same as other medications prescribed for you. Read thedirections carefully, and ask your doctor or other care provider to review them with you. Continued medications, unchanged Dose Details aspirin 81 mg Chew Take 81 mg by mouth daily. 81 mg Refills: 0 atorvastatin 80 mg Tab Commonly known as: Lipitor Take 1 tablet by mouth every evening. 80 mg Quantity: 90 tablet Refills: 3 * Nicotrol 10 mg Crtg Inhale into the lungs. Generic drug: nicotine Refills: 0 * nicotine 21 mg/24 hr Pt24 Commonly known as: Nicoderm CQ Change 1 patch on the skin daily. 1 patch Quantity: 28 patch Refills: 0 * This list has 2 medication(s) that are the same as other medications prescribed for you. Read thedirections carefully, and ask your doctor or other care provider to review them with you. STOPPED Medications acetaminophen 325 mg Cap Replaced by: acetaminophen 325 mg Tab medroxyPROGESTERone 5 mg Tab Commonly known as: PROVERA megestroL 40 mg Tab Commonly known as: Megace nicotine polacrilex 4 mg Lozg Commonly known as: Commit norethindrone 5 mg Tab Commonly known as: Aygestin Smoking Status at Discharge: Social History Tobacco Use Smoking Status Current Every Day Smoker ??? Packs/day: 1.00 ??? Years: 20.00 ??? Pack years: 20.00 Smokeless Tobacco Never Used Tobacco Comment varies to about 1-1.5 packs per day Instructions Given to Patient at Discharge: Patient Instructions PATIENT DISCHARGE INSTRUCTIONS Gynecologic Oncology phone number: [phone]. After hours and on weekends please call hospital filing machine operator at [phone] and ask for Gynecologic Oncologist motion picture narrator. Call your doctor if you develop: --A fever over 101 degrees --Severe pain --Increasing pain, redness, or discharge at any of your incisions --Heavy vaginal bleeding-soaking through a pad an hour --It is normal to have continuous or intermittent light spotting from the vagina for up to 6 weeks following hysterectomy -Follow-up with Dr. Trevizo on 10/31/21 at 11:00AM -Follow-up with Dr. Pollock on 11/13/2021 at 1:00PM -Follow-up with Dr. Cole (Urology) in 4-6 weeks regarding ureteral stent removal. They will schedule this appointment. Your ureteral stent needs to be removed (or exchanged) about every 3 months toavoid infection. You have been diagnosed with Diabetes as your hemoglobin A1C is 8. Please continue to monitor your blood sugar levels and keep a log of the results. Please see separate instructions regarding your new diabetes medicines. Activity level: No heavy lifting (10lbs max), pushing or pulling for 6 weeks. No sexual intercourse, no tampons, nothing in the vagina for 8 weeks. Diet: You may resume your regular diet. Be sure you drink plenty of fluids. Bowel Regimen: Please use diane-colace (senna-S or docusate-senna) 1-2 tablets twice daily for the entire time that you are taking narcotic pain medication to keep your bowel movements soft and regular. You may consider using this post- operatively even if you are not using narcotic pain medication. You can increase this to up to 8 tablets a day (and may take 6-12 hours for effect). If you are constipated or have not had a bowel movement in 2 days, you may add in polyethylene glycol (Miralax) 17g(one capful) 1-2 times daily (may take 1-2 days for effect). If this is ineffective you may add Milk of Magnesia 30mL (2 Tablespoons) daily (may take 30minutes - 6 hours to work). The next step is to use Magnesium Citrate 1 bottle (295mL)- this usually produces a bowel movement in 30 minutes-3 hours. Please call if you have not had a bowel movement in 3-4 days. Driving: Do not drive until you are off of all narcotic medications and you are not feeling pain; usually between a couple of days to 2 weeks. Shower/Bath: Showering is fine. Short baths are okay but you should avoid having any abdominal incision submerged for more than 10-15 minutes for the next 2 weeks. Wound Care: Your incisions are closed with dissolvable stitches and surgical glue. The glue will dissolve on its own over time - do not pick at or rub the glue. The stitches do not need to be removed- they will dissolve on their own. Pain Control: For your post-operative pain please use ibuprofen, acetaminophen, heating pad, and narcotic pain medication (oxycodone) for your pain management. Your goal is to be able to take severalshort walks every day (increase the duration each day) and to be able to sleep at night. If you areunable to do these things using the ibuprofen and acetaminophen and heating pad then you will need to use the narcotic pain medication (oxycodone) for breakthrough pain. You should be able to use less oxycodone every couple days and require no breakthrough narcotic pain medication in about 1-2weeks. 1. Please use ibuprofen (Advil/Motrin) 600mg every 6 hours around the clock (with food) for the next 5-7 days. After that, use as needed. 2. Please use acetaminophen (Tylenol) 650mg every 6 hours as needed (or 1000mg every 8 hours as needed). Do not exceed 3000mg of acetaminophen from any source in 24 hours. 3. Please use oxycodone every 4-6 hours as needed for pain that ???breaks through?? the ibuprofen and acetaminophen. -Some of our patients have found this non medical website helpful after hysterectomy: [email or web address] Please take your medication exactly as prescribed. Read all instructions that come with your medication. ?? Using narcotic pain medication (such as oxycodone, hydrocodone, hydromorphone [Dilaudid], morphine, fentanyl, or tramadol [Ultram]) may cause addiction. While addiction is more common in people with a personal or family history of addiction, it can occur in anyone. ?? Taking more than the prescribed amount of medication or using with alcohol or other drugs can cause you to stop breathing resulting in coma, brain damage, or . ?? Opioids (oxycodone, hydrocodone, hydromorphone [Dilaudid], morphine, fentanyl, tramadol [Ultram]) can slow reaction time, cause drowsiness, or cloud judgement. It is unsafe for you to drive or operate heavy machinery while taking this medication. ?? Opioids (oxycodone, hydrocodone, hydromorphone [Dilaudid], morphine, fentanyl, tramadol [Ultram]) are at risk of being diverted by anyone with access to your home. Opioids should be stored in a safe and secure place, such as a locked cabinet or safe. Unused opioids (oxycodone, hydrocodone, hydromorphone [Dilaudid], morphine, fentanyl, tramadol [Ultram]) should be disposed of according to the label or patient information. If there are no specific instructions, medications may be returned to a take-back location or mixed with a small amount of water and an undesirable waste substance such as coffee grounds or cat litter. General Instructions Diabetes Discharge Instructions Please check blood sugars 4 times daily before meals and at bedtime. Please check blood sugars withany symptoms. Instructions for Lantus Insulin (LONG ACTING) 1. Inject LANTUS 12 units insulin every morning. Check blood glucose (BG) before breakfast to adjust this dose 2. If the blood glucose before breakfast is over 150 for two days in a row, add TWO units of insulin to the next LANTUS dose. This increased dose becomes your new dose, continue to increase as needed. 3. If the blood glucose before breakfast is under 90 for two days in a row, subtract TWO units of insulin from the next LANTUS dose. This lower dose becomes your new dose, continue to decrease as needed. Instructions for Mealtime Humalog Insulin This is the rapid-acting insulin, used at mealtime to prevent a high BG after you eat. Check your BG before each meal. 1. If your BG is 80 or higher, inject Humalog right before eating. 2. If your BG is lower than 80, or you have symptoms of a low BG, treat the low BG first, then eat your meal and take the Humalog after eating. 3. Inject Humalog for breakfast, Lunch, and dinner based on a 1 unit per every 15 grams carbohydrate. Example: For a low carb/small meal take 1 units, medium meal take 2 units for a large/high carb meal take 3 units Your correction dose is 1 unit for every 40 points that your BG is above 160. Which means 1 units of insulin will decrease your blood glucose level by 40 points. ADD the following insulin if your before-meal BG is higher than 160: Blood Sugar NOVOLOG DOSE 160-200 ADD 1 unit 201-240 ADD 2 units 241-280 ADD 3 units 281- 320 ADD 4 units >320 or HI ADD 5 units and call Doctor If you should forget to take your Humalog. ?? If it is less than an hour since you ate your meal, take the pre-meal calculated dose ?? If more than an hour has passed since you ate, recheck blood glucose and dose according to correction scale only. Try to get some extra exercise and drink a lot of water to help with the high blood sugar. Treatment of Low Blood Sugar (Hypoglycemia) If your BG is lower than 80, you are likely to feel shaky, sweaty and lightheaded. This is a signalthat your body needs more sugar. Quickly eat or drink a small serving of something sweet, such as: 4 ounces fruit juice or regular (not diet) soda 6 lifesavers small box of raisins 4 glucose tablets (~15 gm of glucose) If your BG is very low <50, you can double the amount above or take 30 gm of glucose gel/tablets. Sit and rest and you should feel better within a few minutes. Once you are feeling better, try to determine why your BG was so low. Common causes of hypoglycemia include skipping a meal, lots of exercise, too much insulin or any combination of these things. Understanding the cause my help you to avoid another low BG in the future. Please test blood sugars prior to driving, make sure glucose levels are greater than 100mg/dl. If not have a snack and retest blood sugars in 15 minutes, Please carry a glucose source on you at all times. Call your PCP for blood sugars less than 80 or greater than 300 twice in one day to have your insulin doses adjusted. Urology Discharge Instructions after Ureteral Stent Placement Call your doctor for: ??? Fevers greater than 101.3F ??? Severe nausea or vomiting ??? Increasing pain not controlled by pain medications ??? Inability to urinate Activity level: Increased activity may lead to more stent discomfort and more blood in your urine. Your activity level will be determined by your comfort level. Diet: You may resume your regular diet as tolerated. Driving: No driving while still taking opioid pain medications (wait at least 6- 8 hours since last dose). No driving if you are still sore from surgery as it may limit your ability to react quickly if necessary. Shower/Bath: No restrictions from a Urology perspective Stent Discomfort: Most patients experience some degree of discomfort related to their ureteral stent. Symptoms include flank pain (increased during urination), frequency and urgency of urination, burning or pain in the bladder/urethra with urination, pelvic discomfort, and blood in the urine. Your symptoms may be exacerbated by activity. To manage your stent symptoms, try the following: - Drink plenty of fluid (~2 liters per day or enough to make urine clear or pale yellow) - You may take acetaminophen (Tylenol) up to 1000mg every 6 hours and/or ibuprofen (Motrin, Advil, or generic) up to 600mg every 8 hours - We recommend alternating acetaminophen and ibuprofen so that you are taking one every 3 hours. For example, acetaminophen at 12pm, ibuprofen 3pm, acetaminophen 6pm, ibuprofen 9pm, etc. - Do not exceed 4000mg acetaminophen in 24 hours. Do not exceed 3200mg ibuprofen in 24 hours. Follow up Appointments: - An appointment will be scheduled in 4-6 weeks for cystoscopy and stent removal in the Urology Clinic. Please call [phone] if you do not receive your appointment. It is important to remember that your ureteral stent cannot stay in place permanently. If it remains in place too long it may become encrusted with stone and require additional surgery to remove it. Please call our office if you do not receive your appointment or if you need to reschedule. Future Appointments and Orders Future Appointments and Orders Future Appointments Provider Department Dept Phone 11/13/2021 1:00 PM Brian Pollock MD Gynecology [place]cology at [facility] [place]rive at: Case Operator Area [phone] Discharge References/Attachments None Provider Contact Information: Pk Trevizo MD [phone] documented in this encounter Discharge Instructions * Discharge Instructions* Xiao Simeon MD - 10/20/2021 8:20 AM EDT Diabetes Discharge Instructions Please check blood sugars 4 times daily before meals and at bedtime. Please check blood sugars withany symptoms. Instructions for Lantus Insulin (LONG ACTING) Inject LANTUS 12 units insulin every morning. Check blood glucose (BG) before breakfast to adjust this dose 2. If the blood glucose before breakfast is over 150 for two days in a row, add TWO units of insulin to the next LANTUS dose. This increased dose becomes your new dose, continue to increase as needed. 3. If the blood glucose before breakfast is under 90 for two days in a row, subtract TWO units of insulin from the next LANTUS dose. This lower dose becomes your new dose, continue to decrease as needed. Instructions for Mealtime Humalog Insulin This is the rapid-acting insulin, used at mealtime to prevent a high BG after you eat. Check your BG before each meal. If your BG is 80 or higher, inject Humalog right before eating. If your BG is lower than 80, or you have symptoms of a low BG, treat the low BG first, then eat your meal and take the Humalog after eating. 3. Inject Humalog for breakfast, Lunch, and dinner based on a 1 unit per every 15 grams carbohydrate. Example: For a low carb/small meal take 1 units, medium meal take 2 units for a large/high carb meal take 3 units Your correction dose is 1 unit for every 40 points that your BG is above 160. Which means 1 units of insulin will decrease your blood glucose level by 40 points. ADD the following insulin if your before-meal BG is higher than 160: Blood Sugar NOVOLOG DOSE 160-200 ADD 1 unit 201-240 ADD 2 units 241-280 ADD 3 units 281- 320 ADD 4 units >320 or HI ADD 5 units and call Doctor If you should forget to take your Humalog. If it is less than an hour since you ate your meal, take the pre-meal calculated dose If more than an hour has passed since you ate, recheck blood glucose and dose according to correction scale only. Try to get some extra exercise and drink a lot of water to help with the high blood sugar. Treatment of Low Blood Sugar (Hypoglycemia) If your BG is lower than 80, you are likely to feel shaky, sweaty and lightheaded. This is a signalthat your body needs more sugar. Quickly eat or drink a small serving of something sweet, such as: 4 ounces fruit juice or regular (not diet) soda 6 [employer] small box of raisins 4 glucose tablets (~15 gm of glucose) If your BG is very low <50, you can double the amount above or take 30 gm of glucose gel/tablets. Sit and rest and you should feel better within a few minutes. Once you are feeling better, try to determine why your BG was so low. Common causes of hypoglycemia include skipping a meal, lots of exercise, too much insulin or any combination of these things. Understanding the cause my help you to avoid another low BG in the future. Please test blood sugars prior to driving, make sure glucose levels are greater than 100mg/dl. If not have a snack and retest blood sugars in 15 minutes, Please carry a glucose source on you at all times. Call your PCP for blood sugars less than 80 or greater than 300 twice in one day to have your insulin doses adjusted. Urology Discharge Instructions after Ureteral Stent Placement Call your doctor for: Fevers greater than 101.3F Severe nausea or vomiting Increasing pain not controlled by pain medications Inability to urinate Activity level: Increased activity may lead to more stent discomfort and more blood in your urine. Your activity level will be determined by your comfort level. Diet: You may resume your regular diet as tolerated. Driving: No driving while still taking opioid pain medications (wait at least 6- 8 hours since last dose). No driving if you are still sore from surgery as it may limit your ability to react quickly if necessary. Shower/Bath: No restrictions from a Urology perspective Stent Discomfort: Most patients experience some degree of discomfort related to their ureteral stent. Symptoms include flank pain (increased during urination), frequency and urgency of urination, burning or pain in the bladder/urethra with urination, pelvic discomfort, and blood in the urine. Your symptoms may be exacerbated by activity. To manage your stent symptoms, try the following: - Drink plenty of fluid (~2 liters per day or enough to make urine clear or pale yellow) - You may take acetaminophen (Tylenol) up to 1000mg every 6 hours and/or ibuprofen (Motrin, Advil, or generic) up to 600mg every 8 hours - We recommend alternating acetaminophen and ibuprofen so that you are taking one every 3 hours. For example, acetaminophen at 12pm, ibuprofen 3pm, acetaminophen 6pm, ibuprofen 9pm, etc. - Do not exceed 4000mg acetaminophen in 24 hours. Do not exceed 3200mg ibuprofen in 24 hours. Follow up Appointments: - An appointment will be scheduled in 4-6 weeks for cystoscopy and stent removal in the Urology Clinic. Please call [phone] if you do not receive your appointment. It is important to remember that your ureteral stent cannot stay in place permanently. If it remains in place too long it may become encrusted with stone and require additional surgery to remove it. Please call our office if you do not receive your appointment or if you need to reschedule. * Patient Instructions* Alsyon Bailey MD - 10/16/2021 1:26 PM EDT PATIENT DISCHARGE INSTRUCTIONS Gynecologic Oncology phone number: [phone]. After hours and on weekends please call hospital filing machine operator at [phone] and ask for Gynecologic Oncologist motion picture narrator. Call your doctor if you develop: --A fever over 101 degrees --Severe pain --Increasing pain, redness, or discharge at any of your incisions --Heavy vaginal bleeding-soaking through a pad an hour --It is normal to have continuous or intermittent light spotting from the vagina for up to 6 weeks following hysterectomy -Follow-up with Dr. Trevizo on 10/31/21 at 11:00AM -Follow-up with Dr. Pollock on 11/13/2021 at 1:00PM -Follow-up with Dr. Cole (Urology) in 4-6 weeks regarding ureteral stent removal. They will schedule this appointment. Your ureteral stent needs to be removed (or exchanged) about every 3 months toavoid infection. You have been diagnosed with Diabetes as your hemoglobin A1C is 8. Please continue to monitor your blood sugar levels and keep a log of the results. Please see separate instructions regarding your new diabetes medicines. Activity level: No heavy lifting (10lbs max), pushing or pulling for 6 weeks. No sexual intercourse, no tampons, nothing in the vagina for 8 weeks. Diet: You may resume your regular diet. Be sure you drink plenty of fluids. Bowel Regimen: Please use diane-colace (senna-S or docusate-senna) 1-2 tablets twice daily for the entire time that you are taking narcotic pain medication to keep your bowel movements soft and regular. You may consider using this post- operatively even if you are not using narcotic pain medication. You can increase this to up to 8 tablets a day (and may take 6-12 hours for effect). If you are constipated or have not had a bowel movement in 2 days, you may add in polyethylene glycol (Miralax) 17g(one capful) 1-2 times daily (may take 1-2 days for effect). If this is ineffective you may add Milk of Magnesia 30mL (2 Tablespoons) daily (may take 30minutes - 6 hours to work). The next step is to use Magnesium Citrate 1 bottle (295mL)- this usually produces a bowel movement in 30 minutes-3 hours. Please call if you have not had a bowel movement in 3-4 days. Driving: Do not drive until you are off of all narcotic medications and you are not feeling pain; usually between a couple of days to 2 weeks. Shower/Bath: Showering is fine. Short baths are okay but you should avoid having any abdominal incision submerged for more than 10-15 minutes for the next 2 weeks. Wound Care: Your incisions are closed with dissolvable stitches and surgical glue. The glue will dissolve on its own over time - do not pick at or rub the glue. The stitches do not need to be removed- they will dissolve on their own. Pain Control: For your post-operative pain please use ibuprofen, acetaminophen, heating pad, and narcotic pain medication (oxycodone) for your pain management. Your goal is to be able to take severalshort walks every day (increase the duration each day) and to be able to sleep at night. If you areunable to do these things using the ibuprofen and acetaminophen and heating pad then you will need to use the narcotic pain medication (oxycodone) for breakthrough pain. You should be able to use less oxycodone every couple days and require no breakthrough narcotic pain medication in about 1-2weeks. Please use ibuprofen (Advil/Motrin) 600mg every 6 hours around the clock (with food) for the next 5-7 days. After that, use as needed. Please use acetaminophen (Tylenol) 650mg every 6 hours as needed (or 1000mg every 8 hours as needed). Do not exceed 3000mg of acetaminophen from any source in 24 hours. Please use oxycodone every 4-6 hours as needed for pain that ???breaks through?? the ibuprofen andacetaminophen. -Some of our patients have found this non medical website helpful after hysterectomy: [email or web address] Please take your medication exactly as prescribed. Read all instructions that come with your medication. Using narcotic pain medication (such as oxycodone, hydrocodone, hydromorphone [Dilaudid], morphine,fentanyl, or tramadol [Ultram]) may cause addiction. While addiction is more common in people with a personal or family history of addiction, it can occur in anyone. Taking more than the prescribed amount of medication or using with alcohol or other drugs can causeyou to stop breathing resulting in coma, brain damage, or . Opioids (oxycodone, hydrocodone, hydromorphone [Dilaudid], morphine, fentanyl, tramadol [Ultram]) can slow reaction time, cause drowsiness, or cloud judgement. It is unsafe for you to drive or operate heavy machinery while taking this medication. Opioids (oxycodone, hydrocodone, hydromorphone [Dilaudid], morphine, fentanyl, tramadol [Ultram]) are at risk of being diverted by anyone with access to your home. Opioids should be stored in a safe and secure place, such as a locked cabinet or safe. Unused opioids (oxycodone, hydrocodone, hydromorphone [Dilaudid], morphine, fentanyl, tramadol [Ultram]) should be disposed of according to the label or patient information. If there are no specific instructions, medications may be returned to a take-back location or mixed with a small amount of water and an undesirable waste substance such as coffee grounds or cat litter. documented in this encounter Medications at Time of Discharge Medication Sig Dispensed Refills Start Date End Date acetaminophen (Tylenol) 325 mg Tablet Take 2 tablets by mouth every 6 hours as needed for Pain. 30 tablet 10/20/2021 polyethylene glycoL (Miralax) 17 gram Powder in Packet Take 17 g by mouth daily as needed. 14 each 2 10/20/2021 OneTouch Verio test strips StripIndications:di abetes mellitus 1 each by Other route 3 times daily. Use as instructed Indications: diabetes mellitus 300 each 3 10/20/2021 OneTouch Delica Lancets 30 gauge MiscIndications:carson betes mellitus 1 each by Other route 3 times daily. Indications: diabetes mellitus 300 each 3 10/20/2021 atorvastatin (Lipitor) 80 mg Tablet Take 1 tablet by mouth every evening. 90 tablet 3 09/16/2021 aspirin 81 mg Tablet, Chewable Take 81 mg by mouth daily. docusate sodium (Colace) 100 mg Capsule Take 1 capsule by mouth 2 times daily for 15 days. 30 capsule 1 10/20/2021 11/04/2021 ibuprofen (Advil) 600 mg Tablet Take 1 tablet by mouth every 6 hours as needed for Pain. 40 tablet 3 10/20/2021 11/06/2022 oxyCODONE (Roxicodone) 5 mg Tablet Take 1 tablet by mouth every 4 hours as needed for Pain. 10 tablet 10/20/2021 03/19/2022 insulin glargine-yfgn (Semglee,insulin glarg-yfgn,Pen) 100 unit/mL (3 mL) Insulin Pen Inject 12 Units subcutaneously every morning. 3 mL 3 10/20/2021 11/13/2021 insulin needles, disposable, (BD Ultra-Fine Short Pen Needle) 31 gauge x 5/16 Needle 1 [place] [facility] [place]; Combo Route) route daily. 30 each 3 10/20/2021 11/13/2021 insulin lispro (humaLOG KwikPen) 100 unit/mL Insulin Pen Inject 0-8 Units subcutaneously 3 times daily (before meals). 6 mL 3 10/20/2021 11/13/2021 insulin needles, disposable, (BD Ultra-Fine Short Pen Needle) 31 gauge x 5/16 Needle 1 [place] [facility] [place]; Combo Route) route 3 times daily. 90 each 3 10/20/2021 11/13/2021 nicotine (Nicoderm CQ) 21 mg/24 hr Patch 24 hr Change 1 patch on the skin daily. 28 patch 09/16/2021 11/06/2022 nicotine (Nicotrol) 10 mg Cartridge Inhale into the lungs. 03/25/2021 documented as of this encounter Progress Notes * Melisa Fernandez RN - 10/20/2021 10:24 AM EDT Images from the original note were not included. Diabetes Clinical Nurse Specialist Met with pt to review D/C instructions for her newly Dx'd diabetes. Pt's regimen is basal/bolus insulin. Provided a blank log for for her to record BG results and insulin doses: Talked through calculating doses for correction and meal-associated insulin. Pt practiced preparingthe insulin pen and injecting into a practice cushion. Encouraged pt to call with questions. * Zoe Ashraf RN - 10/20/2021 10:04 AM EDT PT A&Ox4, VSS on . BG covered per AUG. Pt in good spirits.Educated on diabetes management. JPremoved per Team. PIVs removed per Protocol. Insulin teaching and pt performed fingerstick and injection. Reviewed AVS, No concerns at this time. Left unit at approx. 1200 via family car. No concernsat this time * Chanelle Church APRN - 10/20/2021 8:04 AM EDT Follow Up Diabetes Consult Patient Interview Glucose levels and Insulin use reviewed. Pt being discharged today. Objective Temp: [36.6 ??C (97.8 ??F)-37.2 ??C (99 ??F)] Heart Rate: [68-95] Resp: [18-20] BP: (137-187)/(66-95) SpO2: [91 %-96 %] Heart Rate from SpO2: [90 bpm-103 bpm] Current Regimen from previous note 1. Lantus 12 units qd 2. Lispro custom correction scale for BG>140 3. Meal-associated Lispro 1unit: 15 gm carb ratio for each meal Recent Glucose Levels Recent Labs 10/20/21 0742 10/20/21 0339 10/19/21 2339 10/19/21 1952 10/19/21 1607 10/19/21 1137 10/19/21 0815 10/19/21 0437 10/19/21 0009 10/18/21 1948 10/18/21 1649 10/18/21 1457 POCGLU 160 152 155 167 158 181 154 142 178 223* 172 193 ASSESSMENT Patient is a 56 y.o. years old female with PMH significant for DM (Last A1C of 8%) who was admittedon 10/17/2021 for postoperative state after total hysterectomy. Diabetes suboptimally controlled andcurrently complicated by new diagnosis. Currently with variability of blood glucose levels while hospitalized requiring adjustment of insulin regimen and DM medications. Glucose levels remain within target. Recommend pt continue same regimen at home. Diabetes Discharge Instructions Please check blood sugars 4 times daily before meals and at bedtime. Please check blood sugars withany symptoms. Instructions for Lantus Insulin (LONG ACTING) 1. Inject LANTUS 12 units insulin every morning. Check blood glucose (BG) before breakfast to adjust this dose 2. If the blood glucose before breakfast is over 150 for two days in a row, add TWO units of insulin to the next LANTUS dose. This increased dose becomes your new dose, continue to increase as needed. 3. If the blood glucose before breakfast is under 90 for two days in a row, subtract TWO units of insulin from the next LANTUS dose. This lower dose becomes your new dose, continue to decrease as needed. Instructions for Mealtime Humalog Insulin This is the rapid-acting insulin, used at mealtime to prevent a high BG after you eat. Check your BG before each meal. 1. If your BG is 80 or higher, inject Humalog right before eating. 2. If your BG is lower than 80, or you have symptoms of a low BG, treat the low BG first, then eat your meal and take the Humalog after eating. 3. Inject Humalog for breakfast, Lunch, and dinner based on a 1 unit per every 15 grams carbohydrate. Example: For a low carb/small meal take 1 units, medium meal take 2 units for a large/high carb meal take 3 units Your correction dose is 1 unit for every 40 points that your BG is above 160. Which means 1 units of insulin will decrease your blood glucose level by 40 points. ADD the following insulin if your before-meal BG is higher than 160: Blood Sugar NOVOLOG DOSE 160-200 ADD 1 unit 201-240 ADD 2 units 241-280 ADD 3 units 281- 320 ADD 4 units >320 or HI ADD 5 units and call Doctor If you should forget to take your Humalog. ??? If it is less than an hour since you ate your meal, take the pre-meal calculated dose ??? If more than an hour has passed since you ate, recheck blood glucose and dose according to correction scale only. Try to get some extra exercise and drink a lot of water to help with the high blood sugar. Treatment of Low Blood Sugar (Hypoglycemia) If your BG is lower than 80, you are likely to feel shaky, sweaty and lightheaded. This is a signalthat your body needs more sugar. Quickly eat or drink a small serving of something sweet, such as: 4 ounces fruit juice or regular (not diet) soda 6 [employer] small box of raisins 4 glucose tablets (~15 gm of glucose) If your BG is very low <50, you can double the amount above or take 30 gm of glucose gel/tablets. Sit and rest and you should feel better within a few minutes. Once you are feeling better, try to determine why your BG was so low. Common causes of hypoglycemia include skipping a meal, lots of exercise, too much insulin or any combination of these things. Understanding the cause my help you to avoid another low BG in the future. Please test blood sugars prior to driving, make sure glucose levels are greater than 100mg/dl. If not have a snack and retest blood sugars in 15 minutes, Please carry a glucose source on you at all times. Call your doctor for blood sugars less than 80 or greater than 300 twice in one day to have your insulin doses adjusted. Chanelle Church APRN [facility] [place] Management Pager [phone] minutes of this 35 minute visit was spent with the patient in counseling on diabetes and treatment plan, reviewing all glucose and insulin data as well as relevant laboratory results with the patient, and coordination of care on the inpatient unit including nursing and primary team. * Brian Pollock MD - 10/20/2021 6:53 AM EDT Images from the original note were not included. Gynecology Oncology - Progress Note Geeta Sadler is a 56 y.o. woman whose PMH is significant for vascular disease including recent right carotid endarterectomy in August 2021 and ongoing tobacco use who is post operative day # 3 s/pRA-TLH/BSO/SLNBx for uterine adenocarcinoma. She also underwent ex-lap via left sided oblique incision with vascular surgery for question of vascular injury, found to be pelvic kidney injury repairedby urology, who also performed cystoscopy and placement of ureteral stent. Interval Events: -- AM Hgb 8.4 this AM, up from 6.7 yesterday after 1u pRBC -- Patrice drain creatinine 0.9 yesterday at midday Subjective: Geeta is doing well at this time. Pain is currently well controlled on acetaminophen, Toradol and oxycodone, and she rates it as a 1.5/10. She ambulated in the hallway without issue. She has tolerated a regular diet without nausea or vomiting. She is passing flatus. Denies chest pain, shortness of breath, dizziness, lightheadedness, nausea, vomiting, leg pain. Physical Exam: Last Set of Vitals and range of vitals over past 24 hours: Last value Range last 24 hrs Temperature Temp: 37 ??C (98.6 ??F) Temp: [36.6 ??C (97.8 ??F)-37.2 ??C (99 ??F)] Heart Rate Heart Rate: 95 Heart Rate: [68-95] Blood Pressure BP: 153/70 BP: (137-187)/(66-95) Respiratory Rate Resp: 18 Resp: [18-20] SpO2 SpO2: 96 % SpO2: [92 %-96 %] Intake/Output Summary (Last 24 hours) at 10/20/2021 0689 Last data filed at 10/20/2021 0500 Gross per 24 hour Intake 1051.67 ml Output 2870 ml Net -1818.33 ml I/O this shift: In: - Out: 2500 [Urine:2500] UOP at 212 mL/hr for the last 4 recorded hours LLQ patrice drain 70ml over last 24hr, approx 50cc light pink serosanguinous output this morning, last emptied >12hr ago Patient Vitals for the past 168 hrs: Weight 10/20/21 0335 101.2 kg (223 lb 1.7 oz) 10/19/21 0431 102.8 kg (226 lb 10.1 oz) 10/17/21 1043 99.7 kg (219 lb 14.4 oz) Physical Exam Gen: Resting comfortably in bed. NAD. Neuro: Alert and oriented. Cardiac: RRR. No murmurs, rubs, or gallops. Pulm: CTAB, breath sounds diminished at lung bases. No wheezes, rales, or rhonchi. Abd: Hypoactive BS. Soft. Mildly distended. Appropriately tender. No rebound or guarding. Incision: 5 laparoscopic port sites well approximated without drainage. Lower left quadrant obliqueincision well approximated, C/D/I. Wound visualized without drainage, erythema, or induration. LLQ patrice drain with ~50cc serosanguinous drainage, stripped at the time of exam. Extremities: No lower extremity edema, no calf tenderness. Laboratory (Last 24 Hours): Recent Labs 10/20/21 0430 10/19/21 0825 10/19/21 0422 WBC 13.5* 13.7* 13.4* HGB 8.4* 6.7* 6.5* HCT 26.5* 21.2* 20.8* PLATELET 314 297 287 Recent Labs 10/20/21 0430 10/19/21 0422 10/18/21 0420 NA 134* 134* 135 K 4.3 4.5 4.3 CL 104 104 103 CO2 21* 20* 19* BUN 13 22* 14 CREATININE 0.62* 1.00 0.73 MAGNESIUM 0.89 0.96 0.69 PHOS 3.3 4.0 2.8 Final Pathology Pending Assessment and Plan Geeta Sadler is a 56 y.o. female with a past medical history significant for vascular disease who is POD#3 from RA-TLH/BSO/SLND for endometrial adenocarcinoma and ex-lap with left pelvic kidney repair, and cystoscopy with ureteral stent placement (urology op note pending for further details of final procedures). She is advancing well through post-operative milestones, and would be appropriatefor discharge home today after Patrice drain removal. Please see systems based assessment and plan below. Neuro: Pain well controlled currently. --acetaminophen scheduled, oxycodone PRN. Toradol added back this morning. Cardiovascular: Hemoglobin immediately post operatively from 10.3-->8.1 --> 7.8 --> 6.5 --> 6.7. Acute on chronic blood loss anemia. Appropriate rise to 8.4 this morning after 1u pRBC yesterday. Likely equilibration after surgery, given decreasing serosanguinous drain output low concernfor intra-abdominal bleeding. Hemodynamically stable. Moderate range blood pressures in the settingof cHTN for which she does not take medication at home. Hx stroke, no home anticoagulation. -Continue to monitor BPs, if elevated to hypertensive urgency range, plan to administer metoprolol as needed -Home med: continue atorvastatin. Hold home ASA -nicotine patches ordered while hospitalized Pulmonary: Adequate spO2 on room air. No concerns - Encourage incentive spirometry GI: Denies nausea, vomiting. Tolerating regular diet -Scopolamine patch in place for nausea -Pericolace and Miralax bowel regimen. : Voiding independently -Monitor intake and output FEK: IVF: off. -Daily BMP, lytes WNL with exception of slightly low Na at 134, likely dilutional given increase inweihgt after surgery attributable to IVF. IVF off, will continue to monitor Onc: Grade 2-3 endometrial adenocarcinoma, final pathology pending. -Follow up in clinic 3-4 weeks postoperatively Endocrine: Postoperative hyperglycemia s/p dexamethasone intraop, diagnosed with diabetes with Hgb A1c of 8.0 yesterday -- Transitioned to Lantus with Carb Correction and Sliding scale insulin per Diabetes Management. Will follow-up on recommendations today -- S/p Buttonhole Facer teaching ID: Afebrile, received prophylactic antibiotics preop, no evidence of infection. -continue to monitor vital signs. Prophylaxis: - SCDs while in bed - encourage ambulation - incentive spirometry Dispo: Appropriate for discharge later today after drain removal and final diabetes management plan Code Status: Full Code Alyson Bailey MD, PGY-4 Gynecologic Oncology [id number] 10/20/2021 I saw and evaluated the patient with Dr. Bailey, and I confirmed the history and physical findingsas outlined, participated in the critical aspects of the patient's care, formulated the treatment plan, and I agree with the note as written. * Mera Mckeon, RN - 10/20/2021 5:41 AM EDT Illness Severity [x] Stable [] Watcher [] Unstable Patient Summary Reason for admission: POD #3 (10/20) Total Hysterectomy (injury to kidney during surgery) Relevant PMH: Cigarette smoker, adenocarcinoma of endometrium, stenosis of R carotid artery > 50%, HTN, stroke (March? 2020) Significant 24 hour events: 10/19 PM: Pt A&Ox4. VSS on RA. Endorsing 3-5/10 abdominal pain managed with sched Tylenol. BG coverage per AUG. 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 TARI drainin place with 45 mL sanguinous drainage overnight. Resting between nursing care. Action List BG management Pain management I&Os Pt teaching abt TARI drain * Melvi Calvin RN - 10/19/2021 6:09 PM EDT OUTCOME EVALUATION NOTE: OUTCOME SUMMARY: I assumed care for this patient from [id number]. Patient ambulating in room with SBA/independently. Voiding orange urine (uncahnged) with 5/10 pain with urination (unchanged). Given tylenol for pain relief and patient encouraged to request prn oxycodone if needed. Incisions remain c/d/i. TARI Drain maintaining suction without any issues. Tolerating diet. PLAN MOVING FORWARD: -Pain Control -Mobilize -labs -diabetes management INDIVIDUALIZED FALL PREVENTION: Assistance: -SBA/ independent Surveillance: -Purposeful Rounding -Masimo spot checking (refuses masimo) CPG OUTCOME EVALUATION: * Irma Abernathy RD - 10/19/2021 3:02 PM EDT Nutrition Consult Note Geeta Sadler is a 56 y.o. female whose PMH is significant for vascular disease including recentright carotid endarterectomy in August 2021 and ongoing tobacco use who is post operative day # 2 s/p RA-TLH/BSO/SLNBx for uterine adenocarcinoma. She also underwent ex-lap via left sided oblique incision with vascular surgery for question of vascular injury, found to be pelvic kidney injury repaired by urology, who also performed cystoscopy and placement of ureteral stent. Reason for intervention: Education Nutrition Recommendations: CHO level 4 Encourage good po intake Small, frequent meals Protein source with each meal/snack Education materials left at beside Monitor weight - trend Monitor BG - endo following Active Orders Diet Carb Control diet CHO counting level 4 Frequency: Effective Now Number of Occurrences: Until Specified Lab Results Component Value Date NA 134 (L) 10/19/2021 K 4.5 10/19/2021 CL 104 10/19/2021 CO2 20 (L) 10/19/2021 BUN 22 (H) 10/19/2021 CREATININE 1.00 10/19/2021 ESTGFR 62 10/19/2021 MAGNESIUM 0.96 10/19/2021 CALCIUM 8.0 (L) 10/19/2021 PHOS 4.0 10/19/2021 AST 13 09/28/2021 ALT 16 09/28/2021 ALKPHOS 46 09/28/2021 BILITOT 0.3 09/28/2021 HA1C 8.0 (H) 10/18/2021 Lab Results Component Value Date POCGLU 181 10/19/2021 POCGLU 154 10/19/2021 POCGLU 142 10/19/2021 POCGLU 178 10/19/2021 POCGLU 223 (H) 10/18/2021 POCGLU 172 10/18/2021 Skin Status: Shift Pressure Injury Prevention Occiput: No Injury Thoracic Spine: No Injury Sacral: No Injury Ischial - left: No Injury Ischial - right: No Injury Heel - left: No Injury Heel - right: No Injury Elbow - left: No Injury Elbow - right: No Injury Device Sites: IV sites, O2 sat monitor Other Sites: (LUQ TARI drain) Relevant medications: glargine, lispro, senna Last Bowel Movement: 10/17/21 (Per pt report) Admit Weight: 99.75 kg Estimated body mass index is 37.71 kg/m?? as calculated from the following: Height as of this encounter: 165.1 cm (5' 5). Weight as of this encounter: 102.8 kg (226 lb 10.1 oz). [place] Body Weight: 56.8 kg Usual Body Weight: ~226-228lbs per pt Wt loss: 241lbs in Mar 2021 (15 lbs, 6% body weight, not clinically significant) Wt Readings from Last 10 Encounters: 10/19/21 102.8 kg (226 lb 10.1 oz) 09/28/21 100.2 kg (221 lb) 09/16/21 101.3 kg (223 lb 5.2 oz) 05/02/21 108.4 kg (239 lb) 04/03/21 109.5 kg (241 lb 6.4 oz) Assessment: Estimated needs: Calories: 9927-4100 (25-30 kcal/kg IBW) Protein: 85 grams (1.5 g/kg IBW) Nutrition Focused Physical Exam (NFPE): Performed on 10/19/21. Subcutaneous fat loss at Orbital region: None present Upper arm region (triceps/biceps): None present Thoracic and lumbar region (ribs, lower back and maxillary line): Not assessed Lean muscle loss to Rastafari region (temporalis muscle): None present Clavicle bone region (pectoralis major): None present Dorsal hand (interosseous muscle): None present Shoulder (deltoid): None present Scapular bone region (latissimus dorsi, trapezius muscles): Not assessed Thigh region (quadriceps muscle): None present Posterior calf region (gastrocnemius muscle): None present Fluid accumulation: Not assessed Nutrition intake and intake history/Interview: Geeta reported an ok appetite today, had a tony/egg/cheese sandwich for breakfast and chicken salad with beets for lunch. 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 Reported she has lost weight, unsure of how much and reported she has been weighing ~226lbs recently. Now that pain has improved, encouraged small, frequent meals for improved BG control and while appetite is low. Reviewed higher/lower CHO foods with pt and encouraged protein source with each meal/snack, reviewed protein sources. She reported she typically drinks diet pepsi, does not regularly drink juice. Protein-calorie Malnutrition: Not enough data to assess (Lynn, ERYN J Parenteral Enteral Nutr. 2011; 36(3): 273-83) Nutrition to continue to follow up while inpatient Thank you, Irma Abernathy RD Pager #:[phone] * Melisa Fernandez RN - 10/19/2021 12:22 PM EDT Diabetes Clinical Nurse Specialist Met with Mrs. Sadler and her daughter, Yvrose, to discuss her new Dx diabetes. Pt reports a family Hx diabetes in her mother and her daughter. Pt now with an HbA1c of 8.0% during this hospitalization for RA-TLH/BSO/SLNBx for uterine adenocarcinoma. Reviewed the five essential components of managing diabetes with the goal of reducing the risk of serious long-term complications. Provided a copy of the Diabetes Toolkit and a One Touch Verio Flex glucose meter. Will follow. * Brian Pollock MD - 10/19/2021 6:41 AM EDT Images from the original note were not included. Gynecology Oncology - Progress Note Geeta Sadler is a 56 y.o. woman whose PMH is significant for vascular disease including recent right carotid endarterectomy in August 2021 and ongoing tobacco use who is post operative day # 2 s/pRA-TLH/BSO/SLNBx for uterine adenocarcinoma. She also underwent ex-lap via left sided oblique incision with vascular surgery for question of vascular injury, found to be pelvic kidney injury repairedby urology, who also performed cystoscopy and placement of ureteral stent. Interval Events: -- AM Hgb 6.5 this AM, down from 7.8 yesterday AM Subjective: Geeta is doing well at this time. Pain is currently well controlled on acetaminophen, Toradol and oxycodone, and she rates it as a 1.5/10. She ambulated in the hallway without issue. She has tolerated a regular diet without nausea or vomiting. She is passing flatus. Denies chest pain, shortness of breath, dizziness, lightheadedness, nausea, vomiting, leg pain. Physical Exam: Last Set of Vitals and range of vitals over past 24 hours: Last value Range last 24 hrs Temperature Temp: 36.9 ??C (98.4 ??F) Temp: [36.8 ??C (98.2 ??F)-37.3 ??C (99.1 ??F)] Heart Rate Heart Rate: (!) 101 Heart Rate: -- Blood Pressure BP: 136/66 BP: (121-150)/(64-73) Respiratory Rate Resp: 18 Resp: [16-18] SpO2 SpO2: 95 % SpO2: [91 %-97 %] Intake/Output Summary (Last 24 hours) at 10/19/2021 0641 Last data filed at 10/19/2021 0446 Gross per 24 hour Intake 880 ml Output 1290 ml Net -410 ml I/O this shift: In: 400 [P.O.:400] Out: 870 [Urine:800; Other:70] UOP at 68 mL/hr for the last 8 recorded hours LLQ patrice drain 70ml overnight, light pink serosanguinous output this morning Patient Vitals for the past 168 hrs: Weight 10/19/21 0431 102.8 kg (226 lb 10.1 oz) 10/17/21 1043 99.7 kg (219 lb 14.4 oz) Physical Exam Gen: Resting comfortably in bed. NAD. Neuro: Alert and oriented. Cardiac: RRR. No murmurs, rubs, or gallops. Pulm: CTAB, breath sounds diminished at lung bases. No wheezes, rales, or rhonchi. Abd: Hypoactive BS. Soft. Mildly distended. Appropriately tender. No rebound or guarding. Incision: 5 laparoscopic port sites well approximated without drainage. Lower left quadrant obliqueincision well approximated, C/D/I. Wound visualized without drainage, erythema, or induration. LLQ patrice drain with ~20cc serosanguinous drainage, stripped at the time of exam. : Alberto catheter in place draining clear orange urine, removed at bedside this morning. Extremities: No lower extremity edema, no calf tenderness. Laboratory (Last 24 Hours): Recent Labs 10/19/21 0422 10/18/21 0420 10/17/21 1842 WBC 13.4* 16.8* 24.5* HGB 6.5* 7.8* 8.1* HCT 20.8* 24.5* 26.5* PLATELET 287 339 384* Recent Labs 10/19/21 0422 10/18/21 0420 10/17/21 1842 NA 134* 135 135 K 4.5 4.3 5.4* CL 104 103 104 CO2 20* 19* 14* BUN 22* 14 14 CREATININE 1.00 0.73 1.09 MAGNESIUM 0.96 0.69 0.67* PHOS 4.0 2.8 -- Final Pathology Pending Assessment and Plan Geeta Sadler is a 56 y.o. female with a past medical history significant for vascular disease who is POD#2 from RA-TLH/BSO/SLND for endometrial adenocarcinoma and ex-lap with left pelvic kidney repair, and cystoscopy with ureteral stent placement (urology op note pending for further details of final procedures). She is advancing well through post-operative milestones, will plan to administer 1u pRBC and follow-up drain creatinine today to determine whether she would be appropriate for discharge, Please see systems based assessment and plan below. Neuro: Pain well controlled currently. --acetaminophen scheduled, oxycodone PRN. Toradol added back this morning. Cardiovascular: Hemoglobin immediately post operatively from 10.3-->8.1 --> 7.8 --> 6.5 this morning. Plan to administer 1u pRBC. Likely equilibration after surgery, given decreasing serosanguinous drain output low concern for intra- abdominal bleeding. Hemodynamically stable. Moderate range blood pressures in the setting of cHTN for which she does not take medication at home. Hx stroke, n o home anticoagulation. -Continue to monitor BPs, if elevated to hypertensive urgency range, plan to administer metoprolol as needed -Home med: continue atorvastatin. Hold home ASA -nicotine patches ordered while hospitalized Pulmonary: Adequate spO2 on room air. No concerns - Encourage incentive spirometry GI: Denies nausea, vomiting. Tolerating regular -Advance diet as tolerated. -Scopolamine patch in place for nausea -Pericolace and Miralax bowel regimen. : Alberto removed this morning, excellent urine output. Will follow-up void in 4-6 hours. - Plan to check drain Creatinine at 1000, will consider removing drain after this result returns, after consultation with Urology -Monitor intake and output FEK: IVF: off. -Daily BMP, lytes WNL with exception of slightly low Na at 134, likely dilutional given increase inweihgt after surgery attributable to IVF. IVF off, will continue to monitor Onc: Grade 2-3 endometrial adenocarcinoma, final pathology pending. -Follow up in clinic 3-4 weeks postoperatively Endocrine: Postoperative hyperglycemia s/p dexamethasone intraop, diagnosed with diabetes with Hgb A1c of 8.0 yesterday -- Transitioned to Lantus with Carb Correction and Sliding scale insulin per Diabetes Management. Will follow-up on recommendations today -- Buttonhole Facer to do teaching with pt prior to discharge ID: Afebrile, received prophylactic antibiotics preop, no evidence of infection. -continue to monitor vital signs. Prophylaxis: - SCDs while in bed - encourage ambulation - incentive spirometry Dispo: Continues to require inpatient management, could be appropriate for discharge later today pending outcome of drain creatinine and Urology's recommendations Code Status: Full Code Alyson Bailey MD, PGY-4 Gynecologic Oncology [id number] 10/19/2021 I saw and evaluated the patient with Dr. Bailey, and I confirmed the history and physical findingsas outlined, participated in the critical aspects of the patient's care, formulated the treatment plan, and I agree with the note as written. * Lupe iMllan RN - 10/19/2021 5:59 AM EDT Illness Severity [x] Stable [] Watcher [] Unstable Patient Summary Reason for admission: POD #2 (10/19) Total Hysterectomy (injury to kidney during surgery) Relevant PMH: Cigarette smoker, adenocarcinoma of endometrium, stenosis of R carotid artery > 50%, HTN, stroke (March? 2020) Significant 24 hour events: 10/18 PM: Pt is A&Ox4, VSS on RA. Pt endorsing up to 5/10 abdominal pain, PRN PO 5mg oxy & scheduled meds given with good effect. No c/o nausea or SOB. BG covered per AUG. TARI drain in LLQ draining sanguinous output. Lap sites & incision all MARIA R. Alberto in place draining adequate amt of orange urine. Left AC PIV painful to flush, removed per policy & MD notified. AM weight up 3.1kg, MD notified. This AM Hgb 6.5, MD notified. One units RBC's ordered. This AM team at bedside w/ patient, alberto removed. Pt resting in bed between nursing care. Action List BG management Pain management I&Os - pt due to void by [id number] today. Creatinine level from TARI output - 10/19 @1000 Pt teaching abt TARI drain Discharge Plan: possibly home today * Carol Barron RN - 10/18/2021 6:28 PM EDT Illness Severity [x] Stable [] Watcher [] Unstable Patient Summary Reason for admission: POD #1 Total Hysterectomy (injury to kidney during surgery) Relevant PMH: Cigarette smoker, adenocarcinoma of endometrium, stenosis of R carotid artery > 50%, HTN Significant 24 hour events: 10/18 AM - A/Ox4, VSS on RA. Pt reported 5/10 abd pain, managed with becky pain meds and PRN 5mg oxy x1. No c/o nausea, SOB. Insulin drip transitioned to subQ insulin. IVF D/C'd. Lap sites and incision MARIA R, C/D/I. Alberto in place draining adequate amounts of CYU. Pt up in chair for majority of day, ambulated around unit x2 Action List BG management Pain management I&Os Creatinine level from TARI output - 10/19 @1000 * Brian Pollock MD - 10/18/2021 6:55 AM EDT Images from the original note were not included. Gynecology Oncology - Progress Note Geeta Sadler is a 56 y.o. woman whose PMH is significant for vascular disease including recent right carotid endarterectomy in August 2021 and ongoing tobacco use who is post operative day # 1 s/pRA-TLH/BSO/SLNBx for uterine adenocarcinoma. She also underwent ex-lap via left sided oblique incision with vascular surgery for question of vascular injury, found to be pelvic kidney injury repairedby urology, who also performed cystoscopy and placement of ureteral stent. Interval Events: -- Requirement of an insulin drip overnight to control blood glucose management, with blood glucosenow stabilized in the 120s -- Hgb pre-operatively was 10.9, shortly post-operatively was 8.1, and this morning was 7.8 after EBL 700mL Subjective: Geeta is doing well at this time. Pain is currently well controlled on acetaminophen and oxycodone,and she rates it as a 5/10. She has not yet ambulated. She has tolerated sips of water without nausea or vomiting. She has not yet passed flatus. Denies chest pain, shortness of breath, dizziness, lightheadedness, nausea, vomiting, leg pain. Physical Exam: Last Set of Vitals and range of vitals over past 24 hours: Last value Range last 24 hrs Temperature Temp: 37 ??C (98.6 ??F) Temp: [36.7 ??C (98.1 ??F)-37.1 ??C (98.8 ??F)] Heart Rate Heart Rate: (!) 101 Heart Rate: [85-103] Blood Pressure BP: 131/65 BP: (115-171)/(51-79) Respiratory Rate Resp: 16 Resp: [13-27] SpO2 SpO2: 95 % SpO2: [93 %-99 %] Intake/Output Summary (Last 24 hours) at 10/18/2021 0615 Last data filed at 10/18/2021 0637 Gross per 24 hour Intake 3760 ml Output 2865 ml Net 895 ml I/O this shift: In: 360 [P.O.:360] Out: 2064 [Urine:1975; Other:90] UOP at 258 mL/hr for the last 3 hours LLQ patrice drain 90ml since placement, with approximately 50mL serosanguinous output in the Patrice drain during rounds Physical Exam Gen: Resting comfortably in bed. NAD. Neuro: Alert and oriented. Cardiac: RRR. No murmurs, rubs, or gallops. Pulm: CTAB, breath sounds diminished at lung bases. No wheezes, rales, or rhonci. Abd: Hypoactive BS. Soft. Mildly distended. Appropriately tender. No rebound or guarding. Incision: 5 laparoscopic port sites well approximated without drainage. Lower left quadrant obliqueincision well approximated, C/D/I. Wound visualized without drainage, erythema, or induration. LLQ patrice drain with ~50cc serosanguinous drainage, stripped at the time of exam. : Alberto catheter in place draining clear yellow urine. Extremities: No lower extremity edema, no calf tenderness. Laboratory (Last 24 Hours): Recent Labs 10/18/21 0420 10/17/21 1842 WBC 16.8* 24.5* HGB 7.8* 8.1* HCT 24.5* 26.5* PLATELET 339 384* Recent Labs 10/18/21 0420 10/17/21 1842 NA 135 135 K 4.3 5.4* CL 103 104 CO2 19* 14* BUN 14 14 CREATININE 0.73 1.09 MAGNESIUM 0.69 0.67* PHOS 2.8 -- Final Pathology Pending Assessment and Plan Geeta Sadler is a 56 y.o. female with a past medical history significant for vascular disease who is POD#1 from RA-TLH/BSO/SLND for endometrial adenocarcinoma and ex-lap with left pelvic kidney repair, and cystoscopy with ureteral stent placement (urology op note pending for further details of final procedures). She is doing well in the immediate postoperative period; though minimally advanced. Encouraged her to try some breakfast and ambulate this morning, to which she is agreeable. Post-operative creatinine increased from a baseline of 0.75 to 1.09 post- operatively, has returned to 0.73 this morning, with excellent clear urine output. NSAIDs re-ordered this morning. Per Urologywill leave Patrice drain and Alberto catheter in situ today, and check a drain creatinine tomorrow prior to deciding whether to remove the drain and Alberto. Post-operative course complicated by elevated blood glucose values requiring insulin drip for control. Given that they are now stable in the 120s, will plan to transition off of insulin drip to sliding scale insulin. Will contact Diabetes team for recommendations. Please see systems based assessment and plan below. Neuro: Pain well controlled currently. --acetaminophen scheduled, oxycodone PRN. Toradol added back this morning. Cardiovascular: Hemoglobin immediately post operatively from 10.3-->8.1 --> 7.8 this morning.Appears to have stabilized. Hemodynamically stable, no evidence of active bleeding with low serosanguinous drain output. Moderate range blood pressures in the setting of cHTN for which she does not take medication at home. Hx stroke, no home anticoagulation. -mildly tachycardic in post-operative period, asymptomatic. Will continue to monitor at this time, with repeat CBC tomorrow AM -Continue to monitor Bps, if elevated to hypertensive urgency range, plan to administer metoprolol as needed -Home med: continue atorvastatin. Hold home ASA -nicotine patches ordered while hospitalized Pulmonary: Adequate spO2 on room air. No concerns - Encourage incentive spirometry GI: Denies nausea, vomiting. Tolerating sips of water -Advance diet as tolerated. -Scopolamine patch in place for nausea -Pericolace and Miralax bowel regimen. : Alberto is in place, excellent urine output. -Creatinine baseline 0.75, increased to 1.09 post-operatively, and has returned to 0.72 this morning -Keep alberto in place pending result of drain creatinine on POD#2 per Urology -Monitor intake and output FEK: IVF: LR @100mL/hr. Tolerating small amounts of oral intake. -Daily BMP, magnesium repletion ordered -discontinue IVF when tolerating adequate oral intake. Onc: Grade 2-3 endometrial adenocarcinoma, final pathology pending. -Follow up in clinic 3-4 weeks postoperatively Endocrine: Postoperative hyperglycemia s/p dexamethasone intraop, potential underlying undiagnosed type 2 DM. --insulin drip to be transitioned to sliding scale insulin this morning after discussion with Diabetes Management team ID: Afebrile, received prophylactic antibiotics preop, no evidence of infection. -continue to monitor vital signs. Prophylaxis: - SCDs while in bed - Lovenox to start POD#1 - encourage ambulation - incentive spirometry Dispo: Continues to require inpatient management. Code Status: Full Code Alyson Bailey MD, PGY-4 Gynecologic Oncology [id number] 10/18/2021 I saw and evaluated the patient with Dr. Bailey, and I confirmed the history and physical findingsas outlined, participated in the critical aspects of the patient's care, formulated the treatment plan, and I agree with the note as written. Hold heparin until Hgb is stable. * Amanda Mendenhall RN - 10/18/2021 6:15 AM EDT Patient Summary Reason for admission: POD #1 Total Hysterectomy (injury to kidney during surgery) Relevant PMH: Cigarette smoker, adenocarcinoma of endometrium, stenosis of R carotid artery > 50%, HTN Significant 24 hour events: 10/17PM: Received report on pt @ 2100; noticed @ 2200 pts last BGL in PACU was @ 1951, called and ask for a more recent BGL which was 252. Received pt on floor @ 2230 with insulin drip setting 4u/h. Cont. LR running @ 100mL/hr. Oriented patient to room/floor. Pt stated 4/10 pain gave PRN oxy x2. Gave scheduled medications according to AUG. Decreased insulin drip to 2u/hr @ 0230 due to BGL 115. Pt BGL continued to be in the teens decreased insulin drip to 0.5units/hour; MD is aware. Day team is going to handle. Chemo plan & supportive medication: Baseline Weight: Most recent weight: Weight: 99.7 kg (219 lb 14.4 oz) (10/17/21 1043) Neuro: WDL Neuro Checks: (See below) CV: .WDL except, rhythm tachy Telemetry: No Neurovasc: WDL VTE Prophylaxis: SCDs on intermittently Pulmonary: .WDL except, breath sounds dim O2 Device: None (Room air) GI: .WDL except, appearance/characteristics, palpation, GI symptoms LBM: 10/17/21 (Per pt report) Fingerstick order: Yes : .WDL except, voiding ability/characteristics Alberto [x] Last Alberto Care done: Indication: Recent urologic surgery (10/17/21 2312) Musculoskeletal: WDL Pain/Location: 4 (10/18/21 0001) / abdomen (10/17/21 2230) Mobility Plan: Bed alarm sensitivity: High Q2h turns [] Skin: .WDL except, characteristics Psych/Social: Action List Insulin Drip Pain management I&Os * InderjitShakila Evens - 10/17/2021 11:45 PM EDT Images from the original note were not included. Gynecology Oncology - Progress Note Geeta Sadler is a 56 y.o. woman whose PMH is significant for vascular disease including recent right carotid endarterectomy in August 2021 and ongoing tobacco use who is post operative day # 0 s/pRA-TLH/BSO/SLNBx for uterine adenocarcinoma. She also underwent ex-lap via left sided oblique incision with vascular surgery for question of vascular injury, found to be pelvic kidney injury repairedby urology, who also performed cystoscopy and placement of ureteral stent. Intraoperative Findings: 1. Exam under anesthesia: Enlarged firm nodular uterus, normal-appearing cervix. ??2. Laparoscopy: Normal upper abdomen. The inferior portion of the omentum was densely adherent tothe uterus, where there were tumor implants on [...] is described separately in the procedures below. 3. [place] lymph node mapping: A left and right sentinel lymph node was identified and excised, and sent for SLN protocol. 4. Frozen section: None 5. Residual disease: No gross residual disease. EBL 700ml Subjective: Geeta is doing well at this time. Pain is currently well controlled on acetaminophen and oxycodone.She has not yet ambulated. She has tolerated sips of water without nausea or vomiting. She has not yet passed flatus. Denies chest pain, shortness of breath, dizziness, lightheadedness, nausea, vomiting, leg pain. Physical Exam: Last Set of Vitals and range of vitals over past 24 hours: Last value Range last 24 hrs Temperature Temp: 36.8 ??C (98.2 ??F) Temp: [36.7 ??C (98.1 ??F)-37.1 ??C (98.8 ??F)] Heart Rate Heart Rate: (!) 101 Heart Rate: [85-103] Blood Pressure BP: 121/61 BP: (121-171)/(51-79) Respiratory Rate Resp: 16 Resp: [13-27] SpO2 SpO2: 97 % SpO2: [93 %-99 %] Intake/Output Summary (Last 24 hours) at 10/17/20212236 Last data filed at 10/17/2021 223 Gross per 24 hour Intake 3400 ml Output 1700 ml Net 1700 ml I/O this shift: In: - Out: 900 [Urine:850; Other:50] UOP at ~175 mL/hr for the last 3 hours LLQ patrice drain 50ml since placement Gen: Resting comfortably in bed. NAD. Neuro: Alert and oriented. Cardiac: RRR. No murmurs, rubs, or gallops. Pulm: CTAB. No wheezes, rales, or rhonci. Abd: Hypoactive BS. Soft. Mildly distended. Appropriately tender. No rebound or guarding. Incision: 5 laparoscopic port sites well approximated without drainage. Lower left quadrant obliqueincision well approximated, C/D/I. Wound visualized without drainage, erythema, or induration. LLQ patrice drain with ~20cc sanguinous drainage, stripped at the time of exam. : Alberto catheter in place draining clear yellow colored urine. Extremities: No lower extremity edema, no calf tenderness. Laboratory (Last 24 Hours): Recent Labs 10/17/21 1842 WBC 24.5* HGB 8.1* HCT 26.5* PLATELET 384* Recent Labs 10/17/21 1842 NA 135 K 5.4* CL 104 CO2 14* BUN 14 CREATININE 1.09 MAGNESIUM 0.67* Final Pathology Pending Assessment and Plan Geeta Sadler is a 56 y.o. female with a past medical history significant for vascular disease who is POD#0 from RA-TLH/BSO/SLND for endometrial adenocarcinoma and ex-lap with left pelvic kidney repair, and cystoscopy with ureteral stent placement (urology op note pending for further details of final procedures). She is doing well in the immediate postoperative period; please see systems basedassessment and plan below. Neuro: Pain well controlled currently. --acetaminophen scheduled, oxycodone PRN. Consider hydromorphone REFRIGERATING ENGINEER if pain becomes uncontrolled --hold NSAIDs given AASHISH Cardiovascular: Hemoglobin immediately post operatively from 10.3-->8.1. Hemodynamically stable,no evidence of active bleeding. Moderate range blood pressures in the setting of cHTN for which shedoes not take medication at home. Hx stroke, no home anticoagulation. -AM CBC, will consider early draw if signs of ongoing bleeding -Continue to monitor Bps, if elevated to hypertensive urgency range, plan to administer metoprolol as needed -Home med: continue atorvastatin. Will hold bASA until creatinine improves. -nicotine patches ordered while hospitalized Pulmonary: Adequate spO2 on room air. No concerns - Encourage incentive spirometry GI: Denies nausea, vomiting. Tolerating sips of water thus far. -Advance diet as tolerated. -Scopolamine patch in place for nausea -Colace and Miralax bowel regimen. : Alberto is in place, excellent urine output. AASHISH, creatinine 1.09 postoperatively from 0.75 2 weeks ago, likely in the setting of intraoperative renal injury and blood loss with lactate elevated to3.8 intraoperatively. Urology op note pending for further details of their procedures. -Keep alberto in place pending urology recommendations -Monitor intake and output FEK: IVF: LR @100mL/hr. Tolerating small amounts of oral intake. -Daily BMP, continue to trend creatinine -discontinue IVF when tolerating adequate oral intake. Onc: Grade 2-3 endometrial adenocarcinoma, final pathology pending. -Follow up in clinic 3-4 weeks postoperatively Endocrine: Postoperative hyperglycemia s/p dexamethasone intraop, potential underlying undiagnosed type 2 DM. --insulin gtt --consider diabetes team consult in AM ID: Afebrile, received prophylactic antibiotics preop, no evidence of infection. -continue to monitor vital signs. Prophylaxis: - SCDs while in bed - Lovenox to start POD#1, assess need for renal dosing pending creatinine trend - encourage ambulation - incentive spirometry Dispo: Continues to require inpatient management. Code Status: Full Code Shakila Jansen MD, PGY-3 10/17/2021 Gynecologic Oncology Team Pager [phone] * Vandana Campoverde RN - 10/17/2021 8:15 PM EDT Received report, assumed care. * Elizabeth Faith RN - 10/17/2021 7:57 PM EDT 1930- EMS DRIVER service paged for insulin orders. Insulin drip running from OR. * Elizabeth Faith RN - 10/17/2021 7:29 PM EDT 184- Labs sent per Dr. Cole. * Elizabeth Faith RN - 10/17/2021 7:18 PM EDT 1832- Pt rec'd in PACU from OR. documented in this encounter H&P Notes * Brian Pollock MD - 10/17/2021 10:51 AM EDT Inpatient Otr Owner Operator Truck Driver Onc - Admission Interval Note I have reviewed the pre-procedure H&P completed by Dr Brian Pollock on 09/28/2021. (X) Condition unchanged since H&P originally performed. Interval Note: Geeta notes she has been having continued intermittent pelvic pain which she describes is low, possibly exacerbated with movement. She reports continued vaginal bleeding. No heart racing or palpitations, no sob, chronic cough. Has cut down to 1ppd smoking. Exam: Vitals PEND Vitals: 10/17/21 1043 BP: 152/79 BP Location (NBP): Right arm Pulse: 85 Temp: 37.1 ??C (98.8 ??F) TempSrc: Temporal SpO2: 98% Weight: 99.7 kg (219 lb 14.4 oz) Height: 165.1 cm (5' 5) Gen: Sitting up in bed, NAD, pleasant and cooperatve Chest: CTA b/l, no crackles/wheezes CV: RRR FS 10/17/21: 201 CT c/a/p 10/07/21: 1. Mixed attenuation uterine mass, compatible with history of neoplasm. 2. Multiple small, less than 1 cm, LEFT para iliac and para-aortic lymph nodes are noted, which are indeterminate. Geeta Sadler is a 56 y.o. with FIGO grade 2-3 endometrial cancer who presents for a RATLH, BSO and SLNBx. Consent signed in the office, reviewed consent/surgical plan, all questions answered. Okay to go to OR. Abx prophy: cefazolin 2g + metronidazole 500mg VTE prophy: heparin 5000U + SCDs b/l Hibiclens: completed at home last night and this morning -Declines opioid informed consent, wishes to avoid opioid Rx [facility] MARILOU MOSCOSO Gynecologic Oncology [id number] 10/17/2021 I saw and evaluated the patient with MARILOU Stallworth, and I confirmed the history and physical findings as outlined, and I agree with the note as written. documented in this encounter Miscellaneous Notes * Care Management Discharge - Cathy Ott RN - 10/20/2021 9:15 AM EDT CARE MANAGEMENT FINAL DISCHARGE NOTE Chart reviewed, care reviewed with primary team and at interdisciplinary rounds. Patient is medically ready for discharge to Home. Patient declined homecare. Needs for Transition of Care: Plan for discharge is: Home w/o Services *Declines [facility] Outpatient Agency/Support Group Needs: None Transportation: family or friend will provide, daughter Functional status prior to admission: Independent Home Environment: Others in the home: alone, pet(s). Current Living Arrangements: home/apartment/condo. Accessibility Concerns:Patient lives in a 1st floor apt with 2 steps to enter. Current Functional Ability: Assistive Person DME used at home: none Patient is insured through: Primary Insurance: [place] Payor: [place] / Plan: [place] / Product Type: *No Product type* / Secondary Insurance: N/A Prescription Coverage: Yes This plan was formulated with input from patient, and team. All are in agreement with plan. (Patient is able to drive but at this time she does not have a car. Daughter Yvrose will be coming to get her when medically ready for discharge and she will be assisting with transportation to follow up apts and other transportation needs) Cathy Ott RN, BSN Case Management * Consult Note - Xiao Simeon MD - 10/20/2021 8:52 AM EDT Urology Inpatient Consult Note Patient Name: Geeta Sadler Patient Age: 56 y.o. Birthdate: 1965 Admit date: 10/17/2021 Attending Physician: Brian Pollock MD ID: Geeta Sadler is a 56 y.o. female now 3 Days Post-Op s/p NAYE for large pelvic mass excision with renorrhaphy of left pelvic kidney and cystoscopy with ureteral stent placement. 24hr events: ?? Transfused 1u pRBC for Hgb 6.5 yesterday morning ?? Alberto removed and patient voiding ?? AVSS ?? WBC 13.5 (13.7), Hgb 8.4 (6.7), and Cr 0.62 (1.00) ?? TARI Cr 0.9 ?? Reports mild dysuria/pressure with voiding, likely due to stent ?? Patient eager to be discharged O: Last value Range last 24hrs Temperature Temp: 37 ??C (98.6 ??F) Temp: [36.6 ??C (97.8 ??F)-37.2 ??C (99 ??F)] Heart Rate Heart Rate: 95 Heart Rate: -- Blood Pressure BP: 151/71 BP: (137-187)/(66-95) Respiratory Rate Resp: 18 Resp: [18-20] SpO2 SpO2: 91 % SpO2: [91 %-96 %] 10/19 0701 - 10/20 0700 In: 1051.7 [P.O.:720] Out: 2915 [Urine:2800] Physical Exam: General: NAD, sitting on edge of bed HEENT: normocephalic, anicteric sclerae CVS: regular rate Pulm: normal resp effort on RA, no use of accessory muscles, no stridor/audible wheezing Abd: soft, appropriately tender, non-distended. L sided TARI with s/s output. Incisions c/d/i : no Alberto Skin: warm, dry Ext: well perfused Labs: Recent Labs 10/20/21 0430 10/19/21 0825 10/19/21 0422 WBC 13.5* 13.7* 13.4* HGB 8.4* 6.7* 6.5* HCT 26.5* 21.2* 20.8* PLATELET 314 297 287 Recent Labs 10/20/21 0430 10/19/21 0422 10/18/21 0420 10/17/21 1842 NA 134* 134* 135 135 K 4.3 4.5 4.3 5.4* CL 104 104 103 104 CO2 21* 20* 19* 14* BUN 13 22* 14 14 CREATININE 0.62* 1.00 0.73 1.09 GLUCOSE -- -- -- 221* CALCIUM 8.6 8.0* 8.0* 7.5* MAGNESIUM 0.89 0.96 0.69 0.67* PHOS 3.3 4.0 2.8 -- ASSESSMENT: Geeta Sadler is a 56 y.o. female now 3 Days Post-Op s/p NAYE for large pelvic mass excision with renorrhaphy of left pelvic kidney and cystoscopy with ureteral stent placement who is stable and recovering. Alberto out and voiding. TARI Cr equal to serum. Will remove TARI this morning. Recommend repeating Hgb prior to discharge. Office cystoscopy with stent removal in 4-6 wks requested. Multidisciplinary instructions updated for stent placement. If patient experiences stent discomfort, ok to prescribed 0.4mg Flomax daily until stent removal. RECCOMMENDATIONS: - Hgb recheck - office cystoscopy with stent removal in 4-6 wks requested Case discussed with Dr. Cole, Urology Attending. Xiao Simeon MD 10/20/2021 [id number] * Consult Note - Alba Burgos PA - 10/19/2021 1:52 PM EDT Discussed with MARILOU Alvarez. Alberto has been removed. Voiding trial underway. TARI creatinine pending today. Dr Pollock prefers to leave drain in until tomorrow, even if TARI creatinine is unconcerning for urine leak. Cysto/stent removal in Urology clinic has been requested in 4-6 weeks as per discussion between and Dr. Pollock. Alba Burgos PA-C * Plan of Care - Amira Conrad RN - 10/19/2021 1:30 PM EDT Pt alert and oriented x4, out of bed to bathroom and up to chair with 1 assist. TARI draining light red drainage, sample sent to lab. Daughter at bedside. Patient able to void on toilet. C/O pain to incisions, medicated as ordered for pain. Patient received 1 unit of PRBC, no reaction noted. Call mehta in reach. * Initial Assessments - Salina Estes RN - 10/18/2021 4:18 PM EDT Office of Care Management Initial Assessment Salina Estes RN reviewed record and discussed patient with Care Team. Source of Information: Team, bedside nurse, medical record, and Patient Introduced self/reviewed role; services accepted. Reason for Hospitalization: Total Hysterectomy Covid Vaccination Status: 1st & 2nd dose (Moderna) Last COVID test: Lab Results Component Value Date [id number] Not Detected 09/15/2021 Past medical History: Past Medical History: Diagnosis Date ??? Abnormal vaginal bleeding with endometrial thickness greater than 5 mm present on transvaginal ultrasound in postmenopausal patient ??? Diabetes 10/17/2021 ??? Hypertension ??? Obesity ??? Stroke ??? Tobacco use disorder Hospitalizations Within the Past 30 Days: no previous admission in last 30 days Current Decision-Making Capacity: Self Advance Care Planning: Attempt Cardiopulmonary Resuscitation - Inpatient <no information> -Advanced Directive: No, declines If AD's have not been completed Taty Frances would be surrogate decision maker per [place] surrogate decision making law. (Only good for 180 days) Any patient receiving care at [facility] must abide by [place] law. The hierarchy for surrogate decision making is: (a) Patient???s spouse, or civil union partner or common law spouse unless there is a divorce proceeding, separation agreement, or restraining order limiting that person???s relationship with the patient. (b) Any adult son or daughter of the patient. (c) Either parent of the patient. (d) Any adult brother or sister of the patient. (e) Any adult grandchild of the patient. (f) Any grandparent of the patient. (g) Any adult aunt, uncle, niece, or nephew of the patient. (h) A close friend of the patient. (i) The agent with financial power of staff attorney or a conservator appointed in accordance with RSA 464-A. (j) The guardian of the patient???s estate. Current Coping/Education/Information Needs: If drain is placed will need education on how to take care of it Current Functional Ability: Assistive Person Functional Status Prior to Admission: Independent Prior ADLs & IADLs: Assistance Needed with ADLs & IADLs Driving: Family / Friends Provide Rides (Patient is able to drive but at this time she does not have a car. Daughter Yvrose will be coming to get her when medically ready for discharge and she will be assisting with transportation to follow up apts and other transportation needs) Home Environment: Others in the home: alone, pet(s). Current Living Arrangements: home/apartment/condo. Accessibility Concerns:Patient lives in a 1st floor apt with 2 steps to enter. Current DME: none Home Address confirmed as: [address] [facility] [address] Social & Family Supports: All names listed below confirmed with patient as current and correct Extended Emergency Contact Information Primary Emergency Contact: YVROSE FORD Address: [address] [place] [address] [facility] Mobile Relation: Child Current Care Provided by: self Provides Primary Care For: pet(s) Caregiver if needed: child(abigail), adult Quality of Family relationships: helpful, involved, supportive Community Resources being provided currently: none Behavioral Health History: Patient states that she has depression related to her recent diagnosis but does not take anything for it because she does not want to be addicted. Encouraged her to reach out to her PCP and talk about different medications that she could take Substance Use/Abuse listed: Social History Tobacco Use Smoking Status Current Every Day Smoker ??? Packs/day: 1.00 ??? Years: 20.00 ??? Pack years: 20.00 Smokeless Tobacco Never Used Tobacco Comment varies to about 1-1.5 packs per day In the past year have you used an illegal drug or used a prescription medication for non-medical reaons?: No 0 No problems reported 1-2 Low level 3-5 Moderate level 6-8 Substantial level 9- 10 Severe level In the past year have you had 4 or more drinks a day containing alcohol?: No 0 to 7 points: Low risk 8 to 15 points: Medium risk 16 to 19 points: High risk 20 to 40 points: Addiction likely Other Pertinent/Service Specific Information: Patient was offered visiting nurses and declines at this time Health/Prescription Coverage: Primary Insurance: [place] Pay[place] / Plan[place] / Product Type: *No Product type* / Secondary Insurance: N/A Prescription Coverage: Yes Preferred Pharmacy: [id number] - [place], [place] - [address] [facility] [address] [facility] [address] [place] Status: Patient is a : No Primary Care Provider: Pk Trevizo MD [phone] Patient/Caregiver Goals of Treatment: return home when medically ready Potential Needs for Transition of Care: none Agency Referrals: Not Applicable Transportation: no concerns Transportation Anticipated: family or friend will provide Concerns to be Addressed: no discharge needs identified Assessment: Patient is admitted to Otr Owner Operator Truck Driver/onc service for Hysterectomy Plan: Patient continues to require post op testing. Per the team patient will discharge tomorrow. A member of the Care Management team will continue to monitor progress, follow for continuity of care and assist with transition of care planning. Salina CARRERA RN Phone: [phone] Pager: [phone] * Op Note - Justice Cole MD - 10/18/2021 3:48 PM EDT [facility] Operative Note Patient Name: Geeta Sadler : [id number] MR#: [id number] Case Date: 10/17/2021 Surgeon: Surgeon(s) and Role: Panel 1: * Brian Pollock MD - Primary * Alyson Bailey MD - Resident * Justice Cole MD - Assisting Attending Panel 2: * Jared Kiser MD - Primary * Blake Alvarado MD - Resident Panel 3: * Justice Cole MD - Primary Registered Nurse Inspector Toys: Chrissie Gómez RN Preoperative diagnosis: ENDOMETRIAL CANCER Postoperative diagnosis: ENDOMETRIAL CANCER Procedure(s) (LRB): LAPAROSCOPY,TOTAL HYST, UTERUS<250GM, REM TUBE &/OR OVARY, ROBOTIC ASSIST (WRVU 15) (N/A) LAPAROSCOPY,W\BILATERAL TOTAL PELVIC LYMPHADENECTOMY, PERIAORTIC LYMPH NODE SAMPLING, ROBOTIC (WRVU15.6) (N/A) INTRAOPERATIVE ID (MAPPING) SENTINEL LYMPH NODE,INCLUDES INJECTION (WRVU 2.5) (N/A) MODIFIER ROBOT,TOYAI XI (N/A) @EXPLORATORY LAPAROTOMY, WITH/WITHOUT BIOPSY(S) (WRVU 12.54) (N/A) CYSTO, RETROGRADE, URETEROPYELOGRAPHY (WRVU 2.37) (N/A) CYSTOTOMY WITH INSERTION OF URETERAL STENT\CATHETER (WRVU 7.81) (Left) @NEPHRORRHAPHY, SUTURE KIDNEY WOUND OR INJURY (WRVU 21.22) Findings: Pelvic kidney with incision and lower pole and exposure of collecting system with collecting system entry. The collecting system was closed hemostasis was achieved the renography was closed. Anesthesia: General Estimated Blood Loss: 300 mL Specimens removed during surgery: Order Name Source Comment Collection Info Order Time SPECIMEN TO PATHOLOGY [id number] ENDOMETRIAL CANCER RIght pelvic sentinel lymph node excision 10/17/2021 12:45 PM Time specimen removed from patient: 12:43 PM Number of tissue samples (in container) 1 SPECIMEN TO PATHOLOGY [id number] [id number] ENDOMETRIAL CANCER Enlarged right obturator lymph node excision 10/17/2021 12:45 PM Time specimen removed from patient: 12:44 PM Number of tissue samples (in container) 1 SPECIMEN TO PATHOLOGY Permanent Uterus, cervix, bilateral fallopian tubes and bilateral ovaries with attached omentum ENDOMETRIAL CANCER uterus, cervix, bilateral fallopian tubes and bilateral ovaries with attached omentum excision No 10/17/2021 2:32 PM Time specimen removed from patient: 2:28 PM Number of tissue samples (in container) 1 Biospecimen to store? No SPECIMEN TO PATHOLOGY Permanent [place] 9 [id number] ENDOMETRIAL CANCER Left Pelvic Lymph Node excision No 10/17/2021 3:59 PM Time specimen removed from patient: 3:58 PM Number of tissue samples (in container) 1 Biospecimen to store? No Drains: 19 Patrice Surgical Closure: Primary Closure - skin incision is closed but with open spaces for wires, bev, drains or other devices Disposition: awakened from anesthesia, extubated and taken to the recovery room in a stable condition, having suffered no apparent untoward event. Condition: doing well without problems (Please see the Surgical Encounter Summary for any Implant and Specimen details pertinent to this patient.) HPI/Surgical Indications: I was called to the operating room by Dr. Pollock who was performing a hysterectomy for endometrial cancer. During robotic dissection he encountered a mass at the area of the iliac bifurcation dissected along the ureter. Initially he thought this was an enlarged node and dissected into the mass where he encountered bleeding. There was concern that this might be an iliac aneurysm and Dr. Bates performed an exploration isolating the iliac vessels identifying the mass as apelvic kidney. Dr. Pollock asked me to assess the renal injury and perform any necessary additional procedures Procedure Description: When I was called into the operating room the patient was hemodynamically stable and had a left lower quadrant incision with a retractor in place. The left kidney was visible in the incision and appeared to be well vascularized. The approach was retroperitoneal I was able to see the renal vein superiorly but not clearly able to identify the renal artery. Review of the CT scan showed a left pelvic kidney with aberrant vasculature. It was unclear based on the CT scan the origin of the left renal artery but I suspect it was the right external iliac and the right renal vein could be seen draining into the right iliac vein. The left ureter was easily identified and could be seen draining into the renal sinus. There was anincision into the parenchyma of the kidney extending from the level of the renal hilum down to the lower pole. This is being packed with hemostatic agent. I carefully remove the hemostatic agent from the renography. I was able to trace the lower pole calyceal system inferiorly and there was an area of entry into the calyceal system and I was able to see her renal papilla. With removal of the hemostatic agent there was some bleeding from the adjacent parenchyma and this was closed with some interrupted 3-0 Vicryl sutures. I then closed the collecting system with a running 4-0 Vicryl suture. Once hemostasis was achieved we placed some Floseal into the defect. I placed 3 additional sliding renography bolster sutures to fully close the lower pole and tightened these down. Dr. Pollock then placed a drain and close the patient. After closure of the patient she was repositioned in dorsolithotomy position and the perineum was prepped and draped in standard sterile fashion. An additional timeout was performed. A 22 endoscope was introduced into the urethra and passed into the bladder under direct vision. Anterior arthroscopywas normal. The bladder was inspected through 360 degrees with the 30 and 70 degree lenses there was no evidence of any bladder tumors bladder injury or bladder stones. A 5 Romanian Pollick was then used to perform a gentle left retrograde. The ureter appeared normal there was no obvious extravasation from the left renal pelvis. Left renal pelvis was below consistent with a pelvic kidney. A Glidewire was passed into the left renal pelvis. A 6 x 20 Romanian double-J stent was then placed into the left renal pelvis without difficulty. A Alberto catheter was placed. The patient tolerated the procedure without difficulty was awoken from anesthesia and returned to recovery room in stable condition. * Consult Note - Chanelle Church APRN - 10/18/2021 8:21 AM EDT Diabetes Management Team Inpatient Consult Date of Consultation: 10/18/2021 Consult Requested by: EMS DRIVER Oncology Reason for Consultation: Geeta Sadler is a 56 y.o. female diagnosed with Diabetes at this admission who was admitted on 10/17/2021 currently being treated for postoperative state. We are being consulted to assist with diabetes management and to provide a review of care home diabetes care. Diabetes History: Geeta Sadler has no history of diabetes. Pt reports she eats a regular diet and activity level is mostly everyday living. A1c ordered Current Weight 99.7 kg Diabetes Complications Status: Eyes: none - does not remember when last appointment was Kidneys: GFR was 91 on 10/18/21 Sensory: +N/T in hands r/t stroke Autonomic: None Cardiovascular : None Current Hospital Diabetes Care: Medications: Myxredlin IVdrip Lispro 3unit if less than 50% eaten, 6 units if greater than 50% eaten Monitoring: q 1 hr Diet: CHO control level 4 ROS: none PMH Past Medical History: Diagnosis Date ??? Abnormal vaginal bleeding with endometrial thickness greater than 5 mm present on transvaginal ultrasound in postmenopausal patient ??? Hypertension ??? Obesity ??? Stroke ??? Tobacco use disorder Current Hospital Medications: ??? ketorolac 15 mg Intravenous Q6H ??? senna-docusate 2 tablet Oral BID ??? magnesium sulfate 2 g Intravenous Once ??? Patch Verification 1 patch Transdermal BID ??? scopolamine 1 patch Transdermal Once ??? atorvastatin 80 mg Oral QPM ??? sodium chloride 0.9 % (flush) 5 mL Intravenous BID ??? enoxaparin 40 mg Subcutaneous Nightly ??? acetaminophen 650 mg Oral Q6H BECKY ??? insulin lispro 3-6 Units Subcutaneous TID WC ??? nicotine 1 patch Transdermal Daily And ??? Patch Verification 1 patch Transdermal BID And ??? nicotine 1 patch Transdermal Daily PRN: ketorolac FOLLOWED BY [START ON 10/19/2021] ibuprofen, lidocaine-EPINEPHrine, indocyanine green,thrombin (Bovine), sodium chloride 0.9 % (flush), lidocaine, polyethylene glycoL, oxyCODONE OR oxyCODONE, glucose 40% oral geL OR dextrose 10% OR glucagon, insulin regular human Allergy: No Known Allergies Social history: Social History Tobacco Use ??? Smoking status: Current Every Day Smoker Packs/day: 1.00 Years: 20.00 Pack years: 20.00 ??? Smokeless tobacco: Never Used ??? Tobacco comment: varies to about 1-1.5 packs per day Vaping Use ??? Vaping Use: Never used Substance Use Topics ??? Alcohol use: Never ??? Drug use: Never Family history: History reviewed. No pertinent family history. Vitals Last value Range last 24 hrs Temperature Temp: 37.2 ??C (99 ??F) Temp: [36.7 ??C (98.1 ??F)-37.2 ??C (99 ??F)] Heart Rate Heart Rate: (!) 101 Heart Rate: [85-103] Blood Pressure BP: 131/64 BP: (115-171)/(51-79) Respiratory Rate Resp: 16 Resp: [13-27] SpO2 SpO2: 95 % SpO2: [93 %-99 %] Physical Exam: none Labs: Lab Results Component Value Date BUN 14 10/18/2021 CREATININE 0.73 10/18/2021 GLUCOSE 221 (H) 10/17/2021 GLUCFASTING 113 (H) 10/18/2021 ESTGFR 91 10/18/2021 No results found for: HA1C No results found for: MICROALBUR No results found for: CHLPL No results found for: HDL No results found for: LDLCHOL No results found for: TRIG No results found for: CHOLHDL Assessment: Patient is a 56 y.o. years old female with PMH significant for DM (Last A1C of 8%) who was admittedon 10/17/2021 for postoperative state after total hysterectomy. Diabetes suboptimally controlled andcurrently complicated by new diagnosis. Currently with variability of blood glucose levels while hospitalized requiring adjustment of insulin regimen and DM medications. Weight based TDD is 40 units. Last 6 hours pt received 5 units of basal insulin (x4) for a total basal of 20 units. Recommend 12 units of Lantus. Using weight based insulin to calculate rule of 500 and 1500. Carb ratio 1:15 and Correction scale 1:40>160 Plan: 1. Lantus 12 units qd 2. Lispro custom correction scale for BG>140 3. Meal-associated Lispro 1unit: 15 gm carb ratio for each meal Thank you for allowing us to provide care for your patient Chanelle Church APRN [facility] Diabetes Management Pager [phone] minutes of this 80 minute visit was spent with the patient in counseling on diabetes and treatment plan, reviewing all glucose and insulin data as well as relevant laboratory results with the patient, and coordination of care on the inpatient unit * Op Note - Blake Alvarado MD - 10/18/2021 7:16 AM EDT [facility] [place] Note Patient Name: Geeta Sadler : [id number] MR#: [id number] Case Date: 10/17/2021 Surgeon: Surgeon(s) and Role: Panel 1: * Brian Pollock MD - Primary * Alyson Bailey MD - Resident * Justice Cole MD - Assisting Attending Panel 2: * Jared Kiser MD - Primary * Blake Alvarado MD - Resident Panel 3: * Justice Cole MD - Primary Registered Nurse Inspector Toys: Chrissie Gómez RN 1. 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 2. 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 Procedure(s) (LRB): LAPAROSCOPY,TOTAL HYST, UTERUS<250GM, REM TUBE &/OR OVARY, ROBOTIC ASSIST (WRVU 15) (N/A) LAPAROSCOPY,W\BILATERAL TOTAL PELVIC LYMPHADENECTOMY, PERIAORTIC LYMPH NODE SAMPLING, ROBOTIC (WRVU15.6) (N/A) INTRAOPERATIVE ID (MAPPING) SENTINEL LYMPH NODE,INCLUDES INJECTION (WRVU 2.5) (N/A) MODIFIER ROBOT,ENE VARGAS (N/A) @EXPLORATORY LAPAROTOMY, WITH/WITHOUT BIOPSY(S) (WRVU 12.54) (N/A) CYSTO, RETROGRADE, URETEROPYELOGRAPHY (WRVU 2.37) (N/A) CYSTOTOMY WITH INSERTION OF URETERAL STENT\CATHETER (WRVU 7.81) (Left) @NEPHRORRHAPHY, SUTURE KIDNEY WOUND OR INJURY (WRVU 21.22) Findings: Left flank incision performed to explore the mass in question in the left lower quadrant found during laparoscopic procedure. We elevated the peritoneum off of the iliac vessels and found that the mass was not involved with the iliac vessels on the left. We then entered the peritoneal cavity. We identified the mass in question and explored it. Upon palpation it was pulsatile. There was a tubular structure entering it which appeared to be the ureter. We ultimately identified the mass as a low lying left kidney. We then consulted urology for further evaluation. Please see Dr. Cole'soperative report for more information. Anesthesia: General Estimated Blood Loss: 700 mL Specimens removed during surgery: Please see Dr. Pollock's operative report Drains: Please see Dr. Pollock's operative report Surgical Closure: Please see Dr. Pollock's operative report Disposition: Please see Dr. Pollock's operative report Condition: Please see Dr. Pollock's operative report (Please see the Surgical Encounter Summary for any Implant and Specimen details pertinent to this patient.) HPI/Surgical Indications: Intraoperative consult sought by Dr. Pollock. There was a left pelvic mass which appeared to be closely associated with the left iliac vessels during laparoscopy. The mass had bled briskly initially during the procedure with Dr. Pollock. Given this, there was concern for an aneurysm. We therefore proceeded with a left flank incision to explore the mass in a safer setting. Procedure Description: The patient was already under anesthesia. We reprepped the lower abdomen andupper thighs in the usual sterile fashion. We draped the patient in the usual fashion. We then performed a left flank incision and entered the fascia. We then elevated the peritoneal sac medially andentered the retroperitoneum. We identified the left OMAYRA and EIA and hypogastric. There was no aneurysm associated with them, nor any large branches that we identified. The iliac veins were lying deeper in the pelvis, but had no obvious large aneurysm associated with them, nor any injury. We enteredthe peritoneal cavity and identified the mass in question that was seen during laparoscopy. We mobilized it and identified a tubular structure entering it which appeared to be the ureter. The mass had a pulse in it. We identified it as a low lying left kidney. We then obtained further input from Dr. Cole of urology. Please see his operative report for further details. Surgical Infection Prevention Bundle Used? Please see Dr. Pollock's operative report * Consult Note - Jodi Delcid MD - 10/18/2021 6:21 AM EDT Urology Inpatient Consult Note Patient Name: Geeta Sadler Patient Age: 56 y.o. Birthdate: 1965 Admit date: 10/17/2021 Attending Physician: Brian Pollock MD ID: Geeta Sadler is a 56 y.o. female LOS: 0 days 1 Day Post-Op from a [facility] for large pelvic massexcision with renorrhaphy of left pelvic kidney and cystoscopy with ureteral stent placement. 24hr events: ?? YARED ?? Pain overall well controlled ?? AVSS ?? hbg stable 7.8 (from 8.1) ?? adequate UOP, CYU ?? Cr 0.73 (from 1.09) O: Last value Range last 24hrs Temperature Temp: 37.1 ??C (98.8 ??F) Temp: [36.7 ??C (98.1 ??F)-37.1 ??C (98.8 ??F)] Heart Rate Heart Rate: (!) 101 Heart Rate: [85-103] Blood Pressure BP: 115/63 BP: (115-171)/(51-79) Respiratory Rate Resp: 16 Resp: [13-27] SpO2 SpO2: 98 % SpO2: [93 %-99 %] 10/17 0701 - 10/18 0700 In: 3760 [P.O.:360; I.V.:2900] Out: 1740 [Urine:1350] Physical Exam: General: NAD, resting in bed HEENT: normocephalic, anicteric sclerae CVS: regular rate Pulm: normal resp effort on RA, no use of accessory muscles, no stridor/audible wheezing Abd: soft, appropriately tender, non-distended. No guarding. L sided TARI with s/s output : Alberto in place draining CYU Skin: warm, dry Ext: well perfused, no edema Labs: Recent Results (from the past 72 hour(s)) POCT Glucose Result Value Ref Range POC Glucose 201 (H) 65 - 199 mg/dL Prepare RBC Result Value Ref Range Dispensed? Yes BLOOD GAS 2 ARTERIAL Result Value Ref Range pH Art 7.24 (CRIT) 7.35 - 7.45 pCO2 Art 38 35 - 45 mmHg pO2 Art 202 (H) 85 - 104 mmHg HCO3 Art 15.7 (L) 20.0 - 26.0 mmol/L BE Art -11.7 (L) -3.0 - 3.0 mmol/L Hgb Blood Gas 10.3 (L) 11.7 - 15.5 g/dL O2HB Art 95.8 94.0 - 97.0 % COHB Art 3.7 % METHB Art 0.2 <=1.5 % Na Whole Blood 128 (L) 135 - 145 mmol/L K Whole Blood 6.0 (H) 3.5 - 5.0 mmol/L ICa Whole Blood 1.09 (L) 1.15 - 1.33 mmol/L CL Whole Blood 102 98 - 107 mmol/L Gluc Whole Bld 330 (H) 65 - 199 mg/dL Lactate WB 2.4 (H) 0.5 - 2.2 mmol/L BLOOD GAS 2 ARTERIAL Result Value Ref Range pH Art 7.24 (CRIT) 7.35 - 7.45 pCO2 Art 43 35 - 45 mmHg pO2 Art 207 (H) 85 - 104 mmHg HCO3 Art 17.9 (L) 20.0 - 26.0 mmol/L BE Art -9.4 (L) -3.0 - 3.0 mmol/L Hgb Blood Gas 9.2 (L) 11.7 - 15.5 g/dL O2HB Art 95.6 94.0 - 97.0 % COHB Art 3.9 % METHB Art 0.2 <=1.5 % Na Whole Blood 130 (L) 135 - 145 mmol/L K Whole Blood 5.1 (H) 3.5 - 5.0 mmol/L ICa Whole Blood 1.02 (L) 1.15 - 1.33 mmol/L CL Whole Blood 104 98 - 107 mmol/L Gluc Whole Bld 303 (H) 65 - 199 mg/dL Lactate WB 3.8 (H) 0.5 - 2.2 mmol/L Basic Metabolic Panel (non-fasting) Result Value Ref Range Glucose Lvl 221 (H) 65 - 199 mg/dL BUN 14 8 - 18 mg/dL Creatinine 1.09 0.70 - 1.20 mg/dL Sodium 135 135 - 145 mmol/L Potassium 5.4 (H) 3.5 - 5.0 mmol/L Chloride 104 98 - 107 mmol/L CO2 14 (L) 22 - 31 mmol/L Anion Gap 17 (H) 5 - 15 mmol/L Calcium 7.5 (L) 8.5 - 10.5 mg/dL Estimated GFR 56 (L) >=60 mL/min/1.73 m?? Magnesium Result Value Ref Range Magnesium 0.67 (L) 0.69 - 1.07 mmol/L Hemogram Result Value Ref Range WBC 24.5 (H) 4.0 - 9.5 x10(3)/mcL RBC 2.90 (L) 4.00 - 5.21 x10(6)/mcL Hemoglobin 8.1 (L) 11.7 - 15.5 g/dL Hematocrit 26.5 (L) 35.7 - 45.8 % MCV 91.4 82.6 - 94.4 fL MCH 27.9 27.1 - 32.0 pg MCHC 30.6 (L) 31.7 - 35.0 g/dL Platelets 384 (H) 145 - 357 x10(3)/mcL RDWSD 54.4 (H) 37.0 - 46.0 fL RDWCV 16.1 (H) 11.5 - 14.1 % MPV 11.5 7.6 - 12.9 fL nRBC % Auto 0.0 % nRBC Abs Auto 0.000 0.000 - 0.000 x10(3)/mcL Differential, Automated Result Value Ref Range Neutrophils % 88.9 % Neutr Abs (ANC) 21.82 (H) 1.70 - 6.10 x10(3)/mcL Lymphocytes % 5.8 % Lymphocytes Abs 1.4 0.9 - 3.2 x10(3)/mcL Monocytes % 4.2 % Monocyte Abs 1.0 (H) 0.3 - 0.9 x10(3)/mcL Eosinophils % 0.0 % Eosinophils Abs 0.0 0.0 - 0.4 x10(3)/mcL Basophils % 0.4 % Basophils Abs 0.1 0.0 - 0.1 x10(3)/mcL Immature Gran % 0.70 % Oralia Gran Abs 0.16 (H) 0.00 - 0.04 x10(3)/mcL Scan, Peripheral Blood Result Value Ref Range Plat Estimate Increased RBC Morphology Abnormal Polychromasia Present >5/HPF POCT Glucose Result Value Ref Range POC Glucose 229 (H) 65 - 199 mg/dL POCT Glucose Result Value Ref Range POC Glucose 252 (H) 65 - 199 mg/dL POCT Glucose Result Value Ref Range POC Glucose 202 (H) 65 - 199 mg/dL POCT Glucose Result Value Ref Range POC Glucose 171 65 - 199 mg/dL POCT Glucose Result Value Ref Range POC Glucose 148 65 - 199 mg/dL POCT Glucose Result Value Ref Range POC Glucose 115 65 - 199 mg/dL POCT Glucose Result Value Ref Range POC Glucose 108 65 - 199 mg/dL POCT Glucose Result Value Ref Range POC Glucose 118 65 - 199 mg/dL POCT Glucose Result Value Ref Range POC Glucose 115 65 - 199 mg/dL BMP w/fasting Glucose Result Value Ref Range Glucose Fasting 113 (H) 65 - 99 mg/dL BUN 14 8 - 18 mg/dL Creatinine 0.73 0.70 - 1.20 mg/dL Sodium 135 135 - 145 mmol/L Potassium 4.3 3.5 - 5.0 mmol/L Chloride 103 98 - 107 mmol/L CO2 19 (L) 22 - 31 mmol/L Anion Gap 13 5 - 15 mmol/L Calcium 8.0 (L) 8.5 - 10.5 mg/dL Estimated GFR 91 >=60 mL/min/1.73 m?? Magnesium Result Value Ref Range Magnesium 0.69 0.69 - 1.07 mmol/L Phosphorus Result Value Ref Range Phosphorus 2.8 2.5 - 4.5 mg/dL Hemogram Result Value Ref Range WBC 16.8 (H) 4.0 - 9.5 x10(3)/mcL RBC 2.74 (L) 4.00 - 5.21 x10(6)/mcL Hemoglobin 7.8 (L) 11.7 - 15.5 g/dL Hematocrit 24.5 (L) 35.7 - 45.8 % MCV 89.4 82.6 - 94.4 fL MCH 28.5 27.1 - 32.0 pg MCHC 31.8 31.7 - 35.0 g/dL Platelets 339 145 - 357 x10(3)/mcL RDWSD 52.2 (H) 37.0 - 46.0 fL RDWCV 16.2 (H) 11.5 - 14.1 % MPV 11.6 7.6 - 12.9 fL nRBC % Auto 0.0 % nRBC Abs Auto 0.000 0.000 - 0.000 x10(3)/mcL Differential, Automated Result Value Ref Range Neutrophils % 84.2 % Neutr Abs (ANC) 14.13 (H) 1.70 - 6.10 x10(3)/mcL Lymphocytes % 8.5 % Lymphocytes Abs 1.4 0.9 - 3.2 x10(3)/mcL Monocytes % 6.7 % Monocyte Abs 1.1 (H) 0.3 - 0.9 x10(3)/mcL Eosinophils % 0.0 % Eosinophils Abs 0.0 0.0 - 0.4 x10(3)/mcL Basophils % 0.1 % Basophils Abs 0.0 0.0 - 0.1 x10(3)/mcL Immature Gran % 0.50 % Oralia Gran Abs 0.08 (H) 0.00 - 0.04 x10(3)/mcL POCT Glucose Result Value Ref Range POC Glucose 120 65 - 199 mg/dL Recent Labs 10/18/21 0420 10/17/21 1842 WBC 16.8* 24.5* HGB 7.8* 8.1* HCT 24.5* 26.5* PLATELET 339 384* Recent Labs 10/18/21 0420 10/17/21 1842 NA 135 135 K 4.3 5.4* CL 103 104 CO2 19* 14* BUN 14 14 CREATININE 0.73 1.09 GLUCOSE -- 221* CALCIUM 8.0* 7.5* MAGNESIUM 0.69 0.67* PHOS 2.8 -- ASSESSMENT: Geeta Sadler is a 56 y.o. female s/pTAH for large pelvic mass excision with renorrhaphy of left pelvic kidney and cystoscopy with ureteral stent placement who is stable and recovering. Will plan to maintain alberto catheter and TARI today and continue to closely monitor. RECCOMMENDATIONS: -maintain alberto catheter to gravity -TARI to bulb suction -will plan to obtain TARI cr tomorrow -closely monitor I/Os Case discussed with Dr. Cole, Urology Attending. Jodi Delcid MD Urology PGY-2 Consult Pager #[phone] 10/18/21 6:21 AM * Op Note - Brian Pollock MD - 10/17/2021 12:06 PM EDT [facility] [place] Patient Name: Geeta Sadler : [id number] MR#: [id number] Case Date: 10/17/2021 Surgeon: Surgeon(s) and Role: Panel 1: * Brian Pollock MD - Primary * Alyson Bailey MD - Resident * Justice Cole MD - Assisting Attending Panel 2: * Jared Kiser MD - Primary * Blake Alvarado MD - Resident Panel 3: * Justice Cole MD - Primary Registered Nurse Inspector Toys: Chrissie Gómez RN Procedure(s) (LRB): LAPAROSCOPY,TOTAL HYST, UTERUS<250GM, REM TUBE &/OR OVARY, ROBOTIC ASSIST (WRVU 15) (N/A) LAPAROSCOPY,W\BILATERAL TOTAL PELVIC LYMPHADENECTOMY, PERIAORTIC LYMPH NODE SAMPLING, ROBOTIC (WRVU15.6) (N/A) INTRAOPERATIVE ID (MAPPING) SENTINEL LYMPH NODE,INCLUDES INJECTION (WRVU 2.5) (N/A) MODIFIER ROBOT,TOYAI XI (N/A) @EXPLORATORY LAPAROTOMY, WITH/WITHOUT BIOPSY(S) (WRVU 12.54) (N/A) CYSTO, RETROGRADE, URETEROPYELOGRAPHY (WRVU 2.37) (N/A) CYSTOTOMY WITH INSERTION OF URETERAL STENT\CATHETER (WRVU 7.81) (Left) @NEPHRORRHAPHY, SUTURE KIDNEY WOUND OR INJURY (WRVU 21.22) Procedures (per gynecologic oncology service): 1. Total laparoscopic hysterectomy for uterus greater than 250 g, with bilateral salpingo-oophorectomy. 2. Intraoperative sentinel lymph node mapping with injection. 3. Laparoscopic pelvic lymph node sampling. Anesthesia: General endotracheal/local infiltration. Preoperative Diagnosis: 1. Grade 2-3 endometrial adenocarcinoma. Postoperative Diagnosis: 1. Grade 2-3 endometrial adenocarcinoma, final pathology pending. Specimens removed during surgery: 1. Uterus (with attached omentum), cervix, fallopian tubes, and ovaries. 2. Bilateral pelvic sentinel lymph node(s). Drains: 1. Alberto catheter. 2. Left lower quadrant 15 Romanian Patrice drain. Estimated Blood Loss: 700 mL mL. IV Fluid: 2 L of LR; 500 mL of 5% albumin; 900 mL normal saline. Urine Output: 400 mL. mL. Indication for surgery: This is a 56 y.o. woman who was referred by: Brian Pollock MD [facility] [place] [address] for a new diagnosis of grade 2-3 endometrial cancer. She was counseled on the diagnosis, surgical plan and goals, alternatives and risks. She wished to proceed with surgery, and written consent was obtained. Findings 1. Exam under anesthesia: Enlarged firm nodular uterus, normal-appearing cervix. 2. Laparoscopy: Normal upper abdomen. The inferior portion [...] is described separately in the procedures below. 3. [place] lymph node mapping: A left and right sentinel lymph node was identified and excised, and sent for SLN protocol. 4. Frozen section: None 5. Residual disease: No gross residual disease. Procedure in Detail: The patient was identified and consent was reaffirmed. She was taken to the operating room and placed in low lithotomy position with stirrups after induction of anesthesia. An exam was conducted and the findings are discussed above. An antiseptic preparation of the abdomen, perineum, and vagina was performed and the patient was sterilely draped. A Alberto catheter was inserted into the bladder. A surgical pause was performed, correctly identifying the intended procedures, antibiotic & DVT prophylaxis, etc. for this patient. 25mg of indocyanine green powder was diluted in 20 mL of aqueous sterile water for injection. A speculum was placed in the vagina, and the cervix was grasped with a tenaculum. Four ml of the ICG solution was injected into the cervix at the 3- and 9-o'clock positions, with 1 ml 1-2 cm deep into the stroma and 1 cc submucosally. After sounding of the uterus and dilation of the cervix, a Lockstitch Binder device was inserted into the uterus for manipulation. An 8-mm transverse incision was made 5 cm above the umbilicus, through which a 8-mm da Blas trocarwas then inserted under direct visualization, verifying atraumatic entry. Additional 8-mm robotic trocars and a 12-mm right upper quadrant bindery library technical assistant port were placed in the usual locations without difficulty, under direct visualization. The patient was placed in steep Trendelenburg position. Pelvicwashings were not obtained. It was immediately noted that the omentum was adherent to the anterior portion of the uterus, with through and through invasion of the tumor involving this omental adhesion. The omentum was then taken off the uterus, except for a small portion which was left attached. Attention was turned to the posterior aspect of the uterus, where the sigmoid colon was dissected off its dense adhesions to likely through and through tumor invasion on the uterine serosa. No enterotomy or colotomy was encountered. Using sharp and electrosurgical dissection, the retroperitoneal spaces including the para-rectal and paravaginal spaces were opened to identify the ureters and expose the lymphatic basins. Using near-infrared illumination, sentinel lymph nodes were identified on the left and side. These were excised, labeled and sent separately for sentinel lymph node pathology protocol. While exploring the left side for a sentinel node, a large mass was encountered on the lower external iliac vessels. Initially, this was thought to be an enlarged lymph node, but further evaluation suggested it might be an aneurysm. Vascular surgery was consulted intraoperatively. They performed a left lower quadrant incision at the end of our case, determined that it was in fact a pelvic kidney. Following this, urology was summoned to further evaluate. Clips, previously placed in this area forhemostasis were removed by the urologist and replaced with sutures, to provide hemostasis. Surgi-Alpesh was then applied. At the end of the case, 15 Romanian Patrice drain was placed over the left pelvic kidney and taken out through a separate stab incision and secured to the left lower quadrant of the abdomen with a suture, later connected to bulb suction. Prior to the laparotomy, laparoscopically, the adnexa were skeletonized and the ovarian vessels were desiccated and divided bilaterally after. The adnexa were then skeletonized around the cornua. Theround ligaments were desiccated and divided bilaterally. A bladder flap was developed to a point over the upper vagina with sharp and electrosurgical dissection. The uterine vessels were then skeletonized, desiccated and divided bilaterally, as were the uterosacral ligaments. This required extensive dissection along the left side of the uterus due to the bulky involvement with tumor. The hysterectomy was completed by making a circumferential colpotomy incision over the vaginal cup with monopolar scissor energy, and then the specimen was withdrawn while contained in a bag, after dismembering it with scissors, to allow removal of the large specimen through the vagina. Given the involvement omentum with tumor, likely stage IVb disease, we elected not to perform a periaortic lymphadenectomy. After the specimens were removed and irrigation performed, the vaginal cuff was closed in the usualfashion with 0-Vicryl sutures secured at each angle, and a 2- 0 Stratafix suture used to run the center of the cuff. The robot was undocked. The port sites were closed with 4-0 Vicryl sutures. Dermaflex sealant was applied to each site. At this point, the patient was repositioned to supine. The vascular surgeons scrubbed into the caseand made a left lower quadrant laparotomy. They approached the left external iliac vessels retroperitoneally. They found no aneurysm, and noted that the mass appeared to be a left pelvic kidney. Thus, urology was summoned, as is described above. Once urology completed the repair of the bleeding vessels at the hilum of the kidney, and after we placed the close suction drain, the previously incisedfascia was closed with 0 PDS in a running mass technique. The subcutaneous tissues were irrigated, and the left lower quadrant laparotomy incision was closed with running 4-0 Vicryl. Dermabond was later applied. The patient was returned to lithotomy position for cystoscopy and placement of a left ureteral stent, by urology. After completion, she was returned to a supine position, extubated and taken to the PACU in stable condition, and accompanied by the anesthesiologist and surgeons. Dr. Brian Pollock, the attending physician, was present for the entire procedure. Counts: Sharp and sponge counts were correct x two. Complications: Small venous vascular injuries to hilum of the left pelvic kidney, repaired.. Antibiotics: 2 gm (s) cefazolin; 500 mg metronidazole; at induction of anesthesia. The cefazolin was redosed at the appropriate time. DVT Prophylaxis: Heparin, 5000 U SQ; ICD's continuously applied to the lower extremities. Surgical Closure: Primary Closure - skin incision is closed but with open spaces for wires, bev, drains or other devices Infection Bundle used? Yes Infection present at time of surgery?: No Chlorhexidine wipes in Same Day prior to surgery: Yes Expected bowel surgery? No. Fingerstick glucose checked in Same Day: Yes Chlorhexidine-alcohol skin prep: Yes Pre-op IV antibiotics: Cefazolin + Metronidazole Vaginal prep: Yes. Povidone-iodine Open case? No. Attestation: Case Date: 10/17/2021 I was present and I participated during the entire procedure (does not need to include opening and closing). BRIAN POLLOCK MD 10/17/2021 documented in this encounter Plan of Treatment Not on file documented as of this encounter Procedures Procedure Name Priority Date/Time Associated Diagnosis Comments POCT GLUCOSE Routine 10/20/2021 11:43 AM EDT HC VENIPUNCTURE STAT 10/20/2021 10:42 AM EDT POCT GLUCOSE Routine 10/20/2021 7:42 AM EDT BMP W/FASTING GLUCOSE Routine 10/20/2021 4:30 AM EDT HEMOGRAM Routine 10/20/2021 4:30 AM EDT DIFFERENTIAL, AUTOMATED Routine 10/21/19 4:30 AM EDT HC CBC,PLT & AUTO DIFF Routine 4:30 AM EDT HC PHOSPHORUS, SERUM Routine 10/20/2021 4:30 AM EDT HC MAGNESIUM, SERUM Routine 10/20/2021 4 :30 AM EDT POCT GLUCOSE Routine 10/20/2021 3:39 AM EDT POCT GLUCOSE Routine 10/19/2021 11:39 PM EDT POCT GLUCOSE Routine 10/19/2021 7:52 PM EDT POCT GLUCOSE Routine 10/19/2021 4:07 PM EDT HC CREATININE - NON BLOOD Routine 10/19/2021 12:22 PM EDT POCT GLUCOSE Routine 10/19/2021 11:37 AM EDT HEMOGRAM STAT 10/19/2021 8:25 AM EDT DIFFERENTIAL, AUTOMATED STAT 10/20/19 8:25 AM EDT HC CBC,PLT & AUTO DIFF STAT 8:25 AM EDT POCT GLUCOSE Routine 10/19/2021 8:15 AM EDT TRANSFUSE RED BLOOD CELLS Routine 10/19/2021 8:15 AM EDT PREPARE RBC Routine 10/19/2021 5:50 AM EDT POCT GLUCOSE Routine 10/19/2021 4:37 AM EDT BMP W/FASTING GLUCOSE Routine 10/19/2021 4:22 AM EDT HEMOGRAM Routine 10/19/2021 4:22 AM EDT DIFFERENTIAL, AUTOMATED Routine 10/20/19 4:22 AM EDT HC VENIPUNCTURE Routine 10/19/2021 4:22 AM EDT HC PHOSPHORUS, SERUM Routine 10/19/2021 4:22 AM EDT HC MAGNESIUM, SERUM Routine 10/19/2021 4 :22 AM EDT POCT GLUCOSE Routine 10/19/2021 12:09 AM EDT POCT GLUCOSE Routine 10/18/2021 7:48 PM EDT POCT GLUCOSE Routine 10/18/2021 4:49 PM EDT POCT GLUCOSE Routine 10/18/2021 2:57 PM EDT POCT GLUCOSE Routine 10/18/2021 1:49 PM EDT POCT GLUCOSE Routine 10/18/2021 12:46 PM EDT POCT GLUCOSE Routine 10/18/2021 11:53 AM EDT POCT GLUCOSE Routine 10/18/2021 10:50 AM EDT POCT GLUCOSE Routine 10/18/2021 9:47 AM EDT POCT GLUCOSE Routine 10/18/2021 8:45 AM EDT POCT GLUCOSE Routine 10/18/2021 7:43 AM EDT POCT FINGERSTICK GLUCOSE Routine 10/18/2021 7:42 AM EDT POCT GLUCOSE Routine 10/18/2021 6:32 AM EDT POCT GLUCOSE Routine 10/18/2021 5:17 AM EDT BMP W/FASTING GLUCOSE Routine 10/18/2021 4:20 AM EDT HEMOGRAM Routine 10/18/2021 4:20 AM EDT DIFFERENTIAL, AUTOMATED Routine 10/19/19 4:20 AM EDT HC VENIPUNCTURE Routine 10/18/2021 4:20 AM EDT HC PHOSPHORUS, SERUM Routine 10/18/2021 4:20 AM EDT HC MAGNESIUM, SERUM Routine 10/18/2021 4 :20 AM EDT HEMOGLOBIN A1C Routine 10/18/2021 4:20 AM EDT POCT GLUCOSE Routine 10/18/2021 4:15 AM EDT POCT GLUCOSE Routine 10/18/2021 3:40 AM EDT POCT GLUCOSE Routine 10/18/2021 3:02 AM EDT POCT GLUCOSE Routine 10/18/2021 2:29 AM EDT POCT GLUCOSE Routine 10/18/2021 1:09 AM EDT POCT GLUCOSE Routine 10/17/2021 11:58 PM EDT POCT GLUCOSE Routine 10/17/2021 10:51 PM EDT POCT GLUCOSE Routine 10/17/2021 10:09 PM EDT POCT GLUCOSE Routine 10/17/2021 7:56 PM EDT POCT GLUCOSE Routine 10/17/2021 6:48 PM EDT SCAN, PERIPHERAL BLOOD STAT 6:42 PM EDT HEMOGRAM STAT 10/17/2021 6:42 PM EDT DIFFERENTIAL, AUTOMATED STAT 10/18/19 6:42 PM EDT HC CBC,PLT & AUTO DIFF STAT 6:42 PM EDT HC MAGNESIUM, SERUM Routine 10/17/2021 6 :42 PM EDT BASIC METABOLIC PANEL STAT 10/17/2021 6:42 PM EDT XR FLUORO NO RAD <1HR - OR USE Routine 10/17/2021 6:40 PM EDT BLOOD GAS ARTERIAL POC Routine 4:56 PM EDT BLOOD GAS ARTERIAL POC Routine 3:59 PM EDT SPECIMEN TO PATHOLOGY Routine 10/17/2021 3:59 PM EDT PREPARE RBC STAT 10/17/2021 3:10 PM EDT SPECIMEN TO PATHOLOGY Routine 10/17/2021 2:33 PM EDT SPECIMEN TO PATHOLOGY Routine 10/17/2021 12:45 PM EDT SPECIMEN TO PATHOLOGY Routine 10/17/2021 12:45 PM EDT SURGICAL PATHOLOGY REPORT Routine 10/17/2021 12:43 PM EDT Repair Of Kidney Wound ([id number]) 10/17/2021 11:25 AM EDT ENDOMETRIAL CANCER Incise Bladder, +Ureter Cath ([id number]) 10/17/2021 11:25 AM EDT ENDOMETRIAL CANCER Cystourethroscopy, Ureter Catheter ([id number]) 10/17/2021 11:25 AM EDT ENDOMETRIAL CANCER Exploration Of Abdomen ([id number]) 10/17/2021 11:25 AM EDT ENDOMETRIAL CANCER MODIFIER ROBOT,DAVINCI XI 10/17/2021 11:25 AM EDT ENDOMETRIAL CANCER Intraop [place] Lymph Id W/Dye Injection ([id number]) 10/17/2021 11:25 AM EDT ENDOMETRIAL CANCER Lap, Pelvic Lymphadenectomy/Bx ([id number]) 10/17/2021 11:25 AM EDT ENDOMETRIAL CANCER Laparoscopy W Tot Hysterectuterus <=250 Gram W Tube/Ovary ([id number]) 10/17/2021 11:25 AM EDT ENDOMETRIAL CANCER POCT GLUCOSE Routine 10/17/2021 10:40 AM EDT documented in this encounter Results * POCT Glucose (10/20/2021 11:43 AM EDT) Glucose, POC 174 65 - 199 mg/dL [facility] Comment: Supplemental ranges: <140 mg/dL before meals <180 mg/dL all other times of the day Blood 10/20/2021 11:4 3 AM EDT 10/20/2021 11:43 AM EDT Brian Pollock MD POINT OF CARE TEST O RDERABLES [facility] [place] [address] * (ABNORMAL) Hemogram (10/20/2021 10:42 AM EDT) White Blood Cell 14.4(H) 4.0 - 9.5 x10(3)/[facility] LABORATORY Red Blood Cell 2.91(L) 4.00 - 5.21 x10(6)/mc L [facility] Hemoglobin 8.3(L) 11.7 - 15.5 g/dL [facility] Hematocrit 26.0(L) 35.7 - 45.8 % [facility] Mean Cell Volume 89.3 82.6 - 94.4 fL [facility] Mean Cell Hemoglobin 28.5 27.1 - 32.0 pg [facility] Mean Cell Hemoglobin Concentration 31.9 31.7 - 35.0 g/dL [facility] Platelet 324 145 - 357 x10(3)/[facility] LABORATORY RDW Standard Deviation 51.8(H) 37.0 - 46.0 [facility] LABORATORY RDW coefficient of variation 16.0(H) 11.5 - 14.1 % [facility] Mean Platelet Volume 11.0 7.6 - 12.9 [facility] LAB[facility]ATORY NRBC% auto 0.1 % [facility] NRBC Absolute 0.020(H) 0.000 - 0.000 x10(3)/[facility] LAB[facility]ATORY Blood 10/20/2021 10:4 2 AM EDT 10/20/2021 10:56 AM EDT Narrative Resulting Agency Comment Spec In Lab Brian Pollock MD HEMATOLOGY ORDERABLE S [facility] [place] [address] * POCT Glucose (10/20/2021 7:42 AM EDT) Glucose, POC 160 65 - 199 mg/dL [facility] Comment: Supplemental ranges: <140 mg/dL before meals <180 mg/dL all other times of the day Blood 10/20/2021 7:42 AM EDT 10/20/2021 7:42 AM EDT Brian Pollock MD POINT OF CARE TEST O RDERABLES [facility] [place] [address] * (ABNORMAL) Differential, Automated (10/20/2021 4:30 AM EDT) Neutrophil % 73.9 % [facility] Neutrophil Absolute 9.97(H) 1.70 - 6.10 x10(3)/mc L [facility] Lymph % 18.0 % [facility] Lymphocytes Abs 2.4 0.9 - 3.2 x10(3)/ L [facility] Monocyte % 7.4 % [facility] Monocyte Abs 1.0(H) 0.3 - 0.9 x10(3)/mc L [facility] Eos % 0.1 % [facility] Eosinophils Abs 0.0 0.0 - 0.4 x10(3)/[facility]ORATORY Basophil % 0.2 % [facility] Baso Absolute 0.0 0.0 - 0.1 x10(3)/mc L [facility] Immature Gran % 0.40 % [facility] Comment: Immature granulocytes(IG's)percentage and absolute count will include metamyelocytes, myelocytes, and promyelocytes. Blood smears from CBCs yielding IG's will be scanned manually for concordance. If this scan disagrees with the automated IG or if promyelocytes are noted, a manual differential will be performed. Immature Gran Absolute 0.06(H) 0.00 - 0.04 x10(3)/mc L [facility] Blood 10/20/2021 4:30 AM EDT 10/20/2021 4:58 AM EDT Narrative Resulting Agency Comment Spec In Lab Alyson Bailey MD HEMATOLOGY ORDERA BLES Performing Organization Address City/[facility]/ZIP Co de Phone Number [facility] [place] [address] * (ABNORMAL) Hemogram (10/20/2021 4:30 AM EDT) White Blood Cell 13.5(H) 4.0 - 9.5 x10(3)/mc L [facility] Red Blood Cell 2.91(L) 4.00 - 5.21 x10(6)/mc L [facility] Hemoglobin 8.4(L) 11.7 - 15.5 g/dL [facility] Hematocrit 26.5(L) 35.7 - 45.8 % [facility] Mean Cell Volume 91.1 82.6 - 94.4 fL [facility] Mean Cell Hemoglobin 28.9 27.1 - 32.0 pg [facility] Mean Cell Hemoglobin Concentration 31.7 31.7 - 35.0 g/dL [facility] Platelet 314 145 - 357 x10(3)/mc L [facility] RDW Standard Deviation 51.8(H) 37.0 - 46.0 [facility] RDW coefficient of variation 15.9(H) 11.5 - 14.1 % [facility] Mean Platelet Volume 11.2 7.6 - 12.9 [facility] NRBC% auto 0.2 % [facility] NRBC Absolute 0.030(H) 0.000 - 0.000 x10(3)/ L [facility] Blood 10/20/2021 4:30 AM EDT 10/20/2021 4:58 AM EDT Narrative Resulting Agency Comment Spec In Lab Alyson Bailey MD HEMATOLOGY ORDERA BLES [facility] [place] [address] * Phosphorus (10/20/2021 4:30 AM EDT) Phosphorus 3.3 2.5 - 4.5 mg/dL [facility] Blood 10/20/2021 4:30 AM EDT 10/20/2021 4:57 AM EDT Narrative Resulting Agency Comment Spec In Lab Brian Pollock MD CHEMISTRY ORDERABLES Performing Organization Address [facility] Co de Phone Number [facility] [place] [address] * Magnesium (10/20/2021 4:30 AM EDT) Magnesium 0.89 0.69 - 1.07 mmol/L [facility] Blood 10/20/2021 4:30 AM EDT 10/20/2021 4:57 AM EDT Narrative Resulting Agency Comment Spec In Lab Brian Pollock MD CHEMISTRY ORDERABLES Performing Organization Address [facility] de Phone Number [facility] [place] [address] * (ABNORMAL) BMP w/fasting Glucose (10/20/2021 4:30 AM EDT) Glucose Fasting 145(H) 65 - 99 mg/dL [facility] Comment: ?Fasting* Glucose Interpretive Criteria Normal ?65-99 mg/dL Impaired Fasting glucose ?100-125 mg/dL Consistent with Diabetes Mellitus ? >or= 126 mg/dL *Fasting is defined as no caloric intake for at least 8 hours In the absence of unequivocal hyperglycemia a plasma glucose value of >or= 126 mg/dL should be repeated on a subsequent day. Diagnosis and Classification of Diabetes Mellitus, Position Statement from the [place] [employer]. ??Diabetes Care, Volume 33, Supplement 1, Jul 2009 Blood Urea Nitrogen 13 8 - 18 mg/dL [facility] Creatinine 0.62(L) 0.70 - 1.20 mg/dL [facility] Sodium 134(L) 135 - 145 mmol/L [facility] Potassium 4.3 3.5 - 5.0 mmol/L [facility] Comment: Please note: ??Patients with WBC >100,000 may have falsely elevated Potassium levels. ??For accurate Potassium quantification in these patients send serum separator tube (gold top) for subsequent determinations. ??Contact the Clinical Chemistry Laboratory if there are any questions. Chloride 104 98 - 107 mmol/L [facility] Carbon Dioxide 21(L) 22 - 31 mmol/L [facility] Anion Gap 9 5 - 15 mmol/L [facility] Calcium 8.6 8.5 - 10.5 mg/dL [facility] Est Glomerular Filtration Rate 100 >=60 mL/min/1. 73 m?? [facility] Comment: This patient? s estimated glomerular filtration rate (eGFR) is between 100 mL/min/1.73 m2 (patients with less muscle mass) and 116 mL/min/1.73 m2 (patients with more muscle mass) as determined by the CKD-EPI equation. Assessment of eGFR is not appropriate when creatinine concentrations are rapidly changing. For clinical decisions where creatinine clearance will affect therapy, a 24-hour urine creatinine clearance may be advised. Assignment of CKD stage 1 - 5 for patients with an eGFR near the transition point between stages may be based on clinical assessment of muscle mass and symptoms in addition to eGFR. Blood 10/20/2021 4:30 AM EDT 10/20/2021 4:57 AM EDT Narrative Resulting Agency Comment Spec In Lab Brian Pollock MD CHEMISTRY ORDERABLES [facility] [place] [address] * POCT Glucose (10/20/2021 3:39 AM EDT) Glucose, POC 152 65 - 199 mg/dL [facility] Comment: Supplemental ranges: <140 mg/dL before meals <180 mg/dL all other times of the day Blood 10/20/2021 3:39 AM EDT 10/20/2021 3:39 AM EDT Brian Pollock MD POINT OF CARE TEST O PACO [facility] [place] [address] * POCT Glucose (10/19/2021 11:39 PM EDT) Glucose, POC 155 65 - 199 mg/dL [facility] Comment: Supplemental ranges: <140 mg/dL before meals <180 mg/dL all other times of the day Blood 10/19/2021 11:3 9 PM EDT 10/19/2021 11:39 PM EDT Brian Pollock MD POINT OF CARE TEST Wesley ANTONIO Performing Organization Address City/[facility]/ZIP Co de Phone Number [facility] [place] [address] * POCT Glucose (10/19/2021 7:52 PM EDT) Glucose, POC 167 65 - 199 mg/dL [facility] Comment: Supplemental ranges: <140 mg/dL before meals <180 mg/dL all other times of the day Blood 10/19/2021 7:52 PM EDT 10/19/2021 7:52 PM EDT Brian Pollock MD POINT OF CARE TEST O PACO [facility] [place] [address] * POCT Glucose (10/19/2021 4:07 PM EDT) Glucose, POC 158 65 - 199 mg/dL [facility] Comment: Supplemental ranges: <140 mg/dL before meals <180 mg/dL all other times of the day Blood 10/19/2021 4:07 PM EDT 10/19/2021 4:07 PM EDT Brian Pollock MD POINT OF CARE TEST O RDERABLES Performing Organization Address City/[facility]/ZIP Co de Phone Number [facility] [place] [address] * Transfuse RBC (10/19/2021 12:53 PM EDT) Brian Pollock MD NURSING TREATMENT OR DERABLES - BLOOD ADMIN * Transfuse RBC (10/19/2021 12:53 PM EDT) Brian Pollock MD NURSING TREATMENT OR DERABLES - BLOOD ADMIN * Creatinine Level Body Fluid TARI Drain (10/19/2021 12:22 PM EDT) Pathologist [facility] Creatinine, Fluid 0.9 mg/dL [facility] Comment: No reference range is available for the specimen type submitted. ??The performance of this assay for the submitted type has not been validated and results should be interpreted accordingly and with regard to the patient's clinical status. Creat, Fld Type TARI Drain [facility] TARI Drain 10/19/2021 12:2 2 PM EDT 10/19/2021 12:44 PM EDT Narrative Resulting Agency Comment Spec In Lab Brian Pollock MD BODY FLUIDS AND STOO LS ORDERABLES Performing Organization Address [facility]/ZIP Co de Phone Number [facility] [place] [address] * POCT Glucose (10/19/2021 11:37 AM EDT) Glucose, POC 181 65 - 199 mg/dL [facility] Comment: Supplemental ranges: <140 mg/dL before meals <180 mg/dL all other times of the day Blood 10/19/2021 11:3 7 AM EDT 10/19/2021 11:37 AM EDT Brian Pollock MD POINT OF CARE TEST O RDERABLES [facility] [place] [address] * (ABNORMAL) Differential, Automated (10/19/2021 8:25 AM EDT) Neutrophil % 71.8 % [facility] Neutrophil Absolute 9.81(H) 1.70 - 6.10 x10(3)/ L [facility] Lymph % 20.3 % [facility] Lymphocytes Abs 2.8 0.9 - 3.2 x10(3)/ L [facility] Monocyte % 7.2 % [facility] Monocyte Abs 1.0(H) 0.3 - 0.9 x10(3)/ L [facility] Eos % 0.1 % [facility] Eosinophils Abs 0.0 0.0 - 0.4 x10(3)/[facility] Basophil % 0.2 % [facility] Baso Absolute 0.0 0.0 - 0.1 x10(3)/mc L [facility] Immature Gran % 0.40 % [facility] Comment: Immature granulocytes(IG's)percentage and absolute count will include metamyelocytes, myelocytes, and promyelocytes. Blood smears from CBCs yielding IG's will be scanned manually for concordance. If this scan disagrees with the automated IG or if promyelocytes are noted, a manual differential will be performed. Immature Gran Absolute 0.06(H) 0.00 - 0.04 x10(3)/ L [facility] Blood 10/19/2021 8:25 AM EDT 10/19/2021 8:30 AM EDT Narrative Resulting Agency Comment Spec In Lab Alyson Bailey MD HEMATOLOGY ORDERA BLES [facility] [place] [address] * (ABNORMAL) Hemogram (10/19/2021 8:25 AM EDT) White Blood Cell 13.7(H) 4.0 - 9.5 x10(3)/mc L [facility] Red Blood Cell 2.38(L) 4.00 - 5.21 x10(6)/mc L [facility] Hemoglobin 6.7(L) 11.7 - 15.5 g/dL [facility] Hematocrit 21.2(L) 35.7 - 45.8 % [facility] Mean Cell Volume 89.1 82.6 - 94.4 fL [facility] Mean Cell Hemoglobin 28.2 27.1 - 32.0 pg [facility] Mean Cell Hemoglobin Concentration 31.6(L) 31.7 - 35.0 g/dL [facility] Platelet 297 145 - 357 x10(3)/mc L [facility] RDW Standard Deviation 54.5(H) 37.0 - 46.0 fL [facility] RDW coefficient of variation 16.8(H) 11.5 - 14.1 % [facility] Mean Platelet Volume 11.4 7.6 - 12.9 fL [facility] NRBC% auto 0.0 % [facility] NRBC Absolute 0.000 0.000 - 0.000 x10(3)/mc L [facility] Blood 10/19/2021 8:25 AM EDT 10/19/2021 8:30 AM EDT Narrative Resulting Agency Comment Spec In Lab Alyson Bailey MD HEMATOLOGY ORDERA BLES [facility] [place] [address] * POCT Glucose (10/19/2021 8:15 AM EDT) Glucose, POC 154 65 - 199 mg/dL [facility] Comment: Supplemental ranges: <140 mg/dL before meals <180 mg/dL all other times of the day Blood 10/19/2021 8:15 AM EDT 10/19/2021 8:15 AM EDT Brian Pollock MD POINT OF CARE TEST O RDERABLES [facility] [place] [address] * Prepare RBC (10/19/2021 5:50 AM EDT) Dispensed? Yes [facility] Blood 10/19/2021 5:50 AM EDT 10/19/2021 5:52 AM EDT Narrative Resulting Agency Comment Spec In Lab Brian Pollock MD BLOOD BANK PRODUCT O RDERABLES Performing Organization Address City/[facility]/ZIP Co de Phone Number [facility] [place] [address] * POCT Glucose (10/19/2021 4:37 AM EDT) Glucose, POC 142 65 - 199 mg/dL [facility] Comment: Supplemental ranges: <140 mg/dL before meals <180 mg/dL all other times of the day Blood 10/19/2021 4:37 AM EDT 10/19/2021 4:37 AM EDT Brian Pollock MD POINT OF CARE TEST O RDERABLES Performing Organization Address City/[facility] Co de Phone Number [facility] [place] [address] * (ABNORMAL) Differential, Automated (10/19/2021 4:22 AM EDT) Neutrophil % 67.0 % [facility] Neutrophil Absolute 9.00(H) 1.70 - 6.10 x10(3)/ L [facility] Lymph % 24.8 % [facility] Lymphocytes Abs 3.3(H) 0.9 - 3.2 x10(3)/ L [facility] Monocyte % 7.1 % [facility] Monocyte Abs 1.0(H) 0.3 - 0.9 x10(3)/[facility] Eos % 0.2 % [facility] Eosinophils Abs 0.0 0.0 - 0.4 x10(3)/[facility] Basophil % 0.2 % [facility] Baso Absolute 0.0 0.0 - 0.1 x10(3)/[facility] Immature Gran % 0.70 % [facility] Comment: Immature granulocytes(IG's)percentage and absolute count will include metamyelocytes, myelocytes, and promyelocytes. Blood smears from CBCs yielding IG's will be scanned manually for concordance. If this scan disagrees with the automated IG or if promyelocytes are noted, a manual differential will be performed. Immature Gran Absolute 0.09(H) 0.00 - 0.04 x10(3)/[facility] Blood 10/19/2021 4:22 AM EDT 10/19/2021 4:35 AM EDT Narrative Resulting Agency Comment Spec In Lab Alyson Bailey MD HEMATOLOGY ORDERA BLES [facility] [place] [address] * (ABNORMAL) Hemogram (10/19/2021 4:22 AM EDT) White Blood Cell 13.4(H) 4.0 - 9.5 x10(3)/ L [facility] Red Blood Cell 2.24(L) 4.00 - 5.21 x10(6)/mc L [facility] Hemoglobin 6.5(L) 11.7 - 15.5 g/dL [facility] Hematocrit 20.8(L) 35.7 - 45.8 % [facility] Mean Cell Volume 92.9 82.6 - 94.4 fL [facility] Mean Cell Hemoglobin 29.0 27.1 - 32.0 pg [facility] Mean Cell Hemoglobin Concentration 31.3(L) 31.7 - 35.0 g/dL [facility] Platelet 287 145 - 357 x10(3)/mc L [facility] RDW Standard Deviation 56.3(H) 37.0 - 46.0 fL [facility] RDW coefficient of variation 16.7(H) 11.5 - 14.1 % [facility] Mean Platelet Volume 11.1 7.6 - 12.9 fL [facility] NRBC% auto 0.3 % [facility] NRBC Absolute 0.040(H) 0.000 - 0.000 x10(3)/mc L [facility] Blood 10/19/2021 4:22 AM EDT 10/19/2021 4:35 AM EDT Narrative Resulting Agency Comment Spec In Lab Alyson Bailey MD HEMATOLOGY ORDERA BLES Performing Organization Address City/[facility]/ZIP Co de Phone Number [facility] [place] [address] * Phosphorus (10/19/2021 4:22 AM EDT) Phosphorus 4.0 2.5 - 4.5 mg/dL [facility] Blood 10/19/2021 4:22 AM EDT 10/19/2021 4:35 AM EDT Narrative Resulting Agency Comment Spec In Lab Brian Pollock MD CHEMISTRY ORDERABLES [facility] [place] [address] * Magnesium (10/19/2021 4:22 AM EDT) Magnesium 0.96 0.69 - 1.07 mmol/L [facility] Blood 10/19/2021 4:22 AM EDT 10/19/2021 4:35 AM EDT Narrative Resulting Agency Comment Spec In Lab Brian Pollock MD CHEMISTRY ORDERABLES [facility] [place] [address] * (ABNORMAL) BMP w/fasting Glucose (10/19/2021 4:22 AM EDT) Glucose Fasting 139(H) 65 - 99 mg/dL [facility] Comment: ?Fasting* Glucose Interpretive Criteria Normal ?65-99 mg/dL Impaired Fasting glucose ?100-125 mg/dL Consistent with Diabetes Mellitus ? >or= 126 mg/dL *Fasting is defined as no caloric intake for at least 8 hours In the absence of unequivocal hyperglycemia a plasma glucose value of >or= 126 mg/dL should be repeated on a subsequent day. Diagnosis and Classification of Diabetes Mellitus, Position Statement from the [place] [employer]. ??Diabetes Care, Volume 33, Supplement 1, Jul 2009 Blood Urea Nitrogen 22(H) 8 - 18 mg/dL [facility] Comment:result rechecked-[place] Creatinine 1.00 0.70 - 1.20 mg/dL [facility] Sodium 134(L) 135 - 145 mmol/L [facility] Potassium 4.5 3.5 - 5.0 mmol/L [facility] Comment: Please note: ??Patients with WBC >100,000 may have falsely elevated Potassium levels. ??For accurate Potassium quantification in these patients send serum separator tube (gold top) for subsequent determinations. ??Contact the Clinical Chemistry Laboratory if there are any questions. Chloride 104 98 - 107 mmol/L [facility] Carbon Dioxide 20(L) 22 - 31 mmol/L [facility] Anion Gap 10 5 - 15 mmol/L [facility] Calcium 8.0(L) 8.5 - 10.5 mg/dL [facility] Est Glomerular Filtration Rate 62 >=60 mL/min/1. 73 m?? [facility] Comment: This patient? s estimated glomerular filtration rate (eGFR) is between 62 mL/min/1.73 m2 (patients with less muscle mass) and 72 mL/min/1.73 m2 (patients with more muscle mass) as determined by the CKD-EPI equation. Assessment of eGFR is not appropriate when creatinine concentrations are rapidly changing. For clinical decisions where creatinine clearance will affect therapy, a 24-hour urine creatinine clearance may be advised. Assignment of CKD stage 1 - 5 for patients with an eGFR near the transition point between stages may be based on clinical assessment of muscle mass and symptoms in addition to eGFR. Blood 10/19/2021 4:22 AM EDT 10/19/2021 4:35 AM EDT Narrative Resulting Agency Comment Spec In Lab Brian Pollock MD CHEMISTRY ORDERABLES Performing Organization Address City/[facility]/ZIP Co de Phone Number [facility] [place] [address] * POCT Glucose (10/19/2021 12:09 AM EDT) Glucose, POC 178 65 - 199 mg/dL [facility] Comment: Supplemental ranges: <140 mg/dL before meals <180 mg/dL all other times of the day Blood 10/19/2021 12:0 9 AM EDT 10/19/2021 12:09 AM EDT Brian Pollock MD POINT OF CARE TEST O RDERABLES [facility] [place] [address] * (ABNORMAL) POCT Glucose (10/18/2021 7:48 PM EDT) Glucose, POC 223(H) 65 - 199 mg/dL [facility] Comment: Supplemental ranges: <140 mg/dL before meals <180 mg/dL all other times of the day Blood 10/18/2021 7:48 PM EDT 10/18/2021 7:48 PM EDT Brian Pollock MD POINT OF CARE TEST O PACO Performing Organization Address City/[facility]/ZIP Co de Phone Number [facility] [place] [address] * POCT Glucose (10/18/2021 4:49 PM EDT) Glucose, POC 172 65 - 199 mg/dL [facility] Comment: Supplemental ranges: <140 mg/dL before meals <180 mg/dL all other times of the day Blood 10/18/2021 4:49 PM EDT 10/18/2021 4:49 PM EDT Brian Pollock MD POINT OF CARE TEST O PACO Performing Organization Address City/[facility]/ZIP Co de Phone Number [facility] [place] [address] * POCT Glucose (10/18/2021 2:57 PM EDT) Glucose, POC 193 65 - 199 mg/dL [facility] Comment: Supplemental ranges: <140 mg/dL before meals <180 mg/dL all other times of the day Blood 10/18/2021 2:57 PM EDT 10/18/2021 2:57 PM EDT Brian Pollock MD POINT OF CARE TEST [facility] [place] [place] [address] * (ABNORMAL) POCT Glucose (10/18/2021 1:49 PM EDT) Glucose, POC 219(H) 65 - 199 mg/dL [facility] Comment: Supplemental ranges: <140 mg/dL before meals <180 mg/dL all other times of the day Blood 10/18/2021 1:49 PM EDT 10/18/2021 1:49 PM EDT Brian Pollock MD POINT OF CARE TEST O [facility] [place] [address] * POCT Glucose (10/18/2021 12:46 PM EDT) Glucose, POC 153 65 - 199 mg/dL [facility] Comment: Supplemental ranges: <140 mg/dL before meals <180 mg/dL all other times of the day Blood 10/18/2021 12:4 6 PM EDT 10/18/2021 12:46 PM EDT Brian Pollock MD POINT OF CARE TEST O PACO [facility] [place] [address] * POCT Glucose (10/18/2021 11:53 AM EDT) Glucose, POC 151 65 - 199 mg/dL [facility] Comment: Supplemental ranges: <140 mg/dL before meals <180 mg/dL all other times of the day Blood 10/18/2021 11:5 3 AM EDT 10/18/2021 11:53 AM EDT Brian Pollock MD POINT OF CARE TEST O PACO [facility] [place] [address] * POCT Glucose (10/18/2021 10:50 AM EDT) Glucose, POC 157 65 - 199 mg/dL [facility] Comment: Supplemental ranges: <140 mg/dL before meals <180 mg/dL all other times of the day Blood 10/18/2021 10:5 0 AM EDT 10/18/2021 10:50 AM EDT Brian Pollock MD POINT OF CARE TEST O PACO [facility] [place] [address] * POCT Glucose (10/18/2021 9:47 AM EDT) Glucose, POC 180 65 - 199 mg/dL [facility] Comment: Supplemental ranges: <140 mg/dL before meals <180 mg/dL all other times of the day Blood 10/18/2021 9:47 AM EDT 10/18/2021 9:47 AM EDT Brian Pollock MD POINT OF CARE TEST O PACO Performing Organization Address City/[facility]/ZIP Co de Phone Number [facility] [place] [address] * POCT Glucose (10/18/2021 8:45 AM EDT) Glucose, POC 120 65 - 199 mg/dL [facility] Comment: Supplemental ranges: <140 mg/dL before meals <180 mg/dL all other times of the day Blood 10/18/2021 8:45 AM EDT 10/18/2021 8:45 AM EDT Brian Pollock MD POINT OF CARE TEST O SOURA[place]I [facility] [place] [address] * POCT Glucose (10/18/2021 7:43 AM EDT) Glucose, POC 128 65 - 199 mg/dL [facility] Comment: Supplemental ranges: <140 mg/dL before meals <180 mg/dL all other times of the day Blood 10/18/2021 7:43 AM EDT 10/18/2021 7:43 AM EDT Brian Pollock MD POINT OF CARE TEST O PACO Performing Organization Address [facility] de Phone Number [facility] [place] [address] * POCT Fingerstick Glucose (10/18/2021 7:42 AM EDT) 10/18/2021 7:42 AM EDT Brian Pollock MD POINT OF CARE TEST O PACO * POCT Glucose (10/18/2021 6:32 AM EDT) Glucose, POC 126 65 - 199 mg/dL [facility] Comment: Supplemental ranges: <140 mg/dL before meals <180 mg/dL all other times of the day Blood 10/18/2021 6:32 AM EDT 10/18/2021 6:32 AM EDT Brian Pollock MD POINT OF CARE TEST O PACO Performing Organization Address [facility] de Phone Number [facility] [place] [address] * POCT Glucose (10/18/2021 5:17 AM EDT) Glucose, POC 120 65 - 199 mg/dL [facility] Comment: Supplemental ranges: <140 mg/dL before meals <180 mg/dL all other times of the day Blood 10/18/2021 5:17 AM EDT 10/18/2021 5:17 AM EDT Brian Pollock MD POINT OF CARE TEST O RDERABLES [facility] [place] [address] * (ABNORMAL) Hemoglobin A1c (10/18/2021 4:20 AM EDT) Hemoglobin A1c 8.0(H) 4.3 - 5.6 % [facility] Comment: Reference Range: 4.3 - [...] Mellitus, Diabetes Care 2013; 36: Suppl. 1, S67-73 Estimated Average Glucose 181 mg/dL [facility] Comment: eAG equivalents for HbA1c [...] into estimated average glucose values. ??Diabetes Care 2008:31(8):8128-4845. Blood Venous Draw / Unknown 10/18/2021 4:20 AM EDT 10/18/2021 8:23 AM EDT Narrative Resulting Agency Comment Spec In Lab Alyson Bailey MD CHEMISTRY ORDERAB LES [facility] [place] [address] * (ABNORMAL) Differential, Automated (10/18/2021 4:20 AM EDT) Neutrophil % 84.2 % [facility] Neutrophil Absolute 14.13(H) 1.70 - 6.10 x10(3)/ L [facility] Lymph % 8.5 % [facility] Lymphocytes Abs 1.4 0.9 - 3.2 x10(3)/[facility] Monocyte % 6.7 % [facility] Monocyte Abs 1.1(H) 0.3 - 0.9 x10(3)/ L [facility] Eos % 0.0 % [facility] Eosinophils Abs 0.0 0.0 - 0.4 x10(3)/[facility] Basophil % 0.1 % [facility] Baso Absolute 0.0 0.0 - 0.1 x10(3)/ L [facility] Immature Gran % 0.50 % [facility] Comment: Immature granulocytes(IG's)percentage and absolute count will include metamyelocytes, myelocytes, and promyelocytes. Blood smears from CBCs yielding IG's will be scanned manually for concordance. If this scan disagrees with the automated IG or if promyelocytes are noted, a manual differential will be performed. Immature Gran Absolute 0.08(H) 0.00 - 0.04 x10(3)/mc L [facility] Blood 10/18/2021 4:20 AM EDT 10/18/2021 4:43 AM EDT Narrative Resulting Agency Comment Spec In Lab Alyson Bailey MD HEMATOLOGY ORDERA BLES [facility] [place] [address] * (ABNORMAL) Hemogram (10/18/2021 4:20 AM EDT) White Blood Cell 16.8(H) 4.0 - 9.5 x10(3)/ L [facility] Red Blood Cell 2.74(L) 4.00 - 5.21 x10(6)/mc L [facility] Hemoglobin 7.8(L) 11.7 - 15.5 g/dL [facility] Hematocrit 24.5(L) 35.7 - 45.8 % [facility] Mean Cell Volume 89.4 82.6 - 94.4 [facility] Mean Cell Hemoglobin 28.5 27.1 - 32.0 [facility] Mean Cell Hemoglobin Concentration 31.8 31.7 - 35.0 g/dL [facility] Platelet 339 145 - 357 x10(3)/[facility] LAB[facility]AT[facility] RDW Standard Deviation 52.2(H) 37.0 - 46.0 [facility] RDW coefficient of variation 16.2(H) 11.5 - 14.1 % [facility] Mean Platelet Volume 11.6 7.6 - 12.9 [facility] NRBC% auto 0.0 % [facility] NRBC Absolute 0.000 0.000 - 0.000 x10(3)/[facility] Blood 10/18/2021 4:20 AM EDT 10/18/2021 4:43 AM EDT Narrative Resulting Agency Comment Spec In Lab Alyson Bailey MD HEMATOLOGY ORDERA BLES [facility] [place] [address] * Phosphorus (10/18/2021 4:20 AM EDT) Phosphorus 2.8 2.5 - 4.5 mg/dL [facility] Blood 10/18/2021 4:20 AM EDT 10/18/2021 4:43 AM EDT Narrative Resulting Agency Comment Spec In Lab Brian Pollock MD CHEMISTRY ORDERABLES Performing Organization Address [facility] Co de Phone Number [facility] [place] [address] * Magnesium (10/18/2021 4:20 AM EDT) Magnesium 0.69 0.69 - 1.07 mmol/L [facility] Blood 10/18/2021 4:20 AM EDT 10/18/2021 4:43 AM EDT Narrative Resulting Agency Comment Spec In Lab Brian Pollock MD CHEMISTRY ORDERABLES Performing Organization Address [facility] Co de Phone Number [facility] [place] [address] * (ABNORMAL) BMP w/fasting Glucose (10/18/2021 4:20 AM EDT) Glucose Fasting 113(H) 65 - 99 mg/dL [facility] Comment: ?Fasting* Glucose Interpretive Criteria Normal ?65-99 mg/dL Impaired Fasting glucose ?100-125 mg/dL Consistent with Diabetes Mellitus ? >or= 126 mg/dL *Fasting is defined as no caloric intake for at least 8 hours In the absence of unequivocal hyperglycemia a plasma glucose value of >or= 126 mg/dL should be repeated on a subsequent day. Diagnosis and Classification of Diabetes Mellitus, Position Statement from the [place] [employer]. ??Diabetes Care, Volume 33, Supplement 1, Jul 2009 Blood Urea Nitrogen 14 8 - 18 mg/dL [facility] Creatinine 0.73 0.70 - 1.20 mg/dL [facility] Sodium 135 135 - 145 mmol/L [facility] Potassium 4.3 3.5 - 5.0 mmol/L [facility] Comment: result [id number] Please note: ??Patients with WBC >100,000 may have falsely elevated Potassium levels. ??For accurate Potassium quantification in these patients send serum separator tube (gold top) for subsequent determinations. ??Contact the Clinical Chemistry Laboratory if there are any questions. Chloride 103 98 - 107 mmol/L [facility] Carbon Dioxide 19(L) 22 - 31 mmol/L [facility] Anion Gap 13 5 - 15 mmol/L [facility] Calcium 8.0(L) 8.5 - 10.5 mg/dL [facility] Est Glomerular Filtration Rate 91 >=60 mL/min/1. 73 m?? [facility] Comment: This patient? s estimated glomerular filtration rate (eGFR) is between 91 mL/min/1.73 m2 (patients with less muscle mass) and 106 mL/min/1.73 m2 (patients with more muscle mass) as determined by the CKD-EPI equation. Assessment of eGFR is not appropriate when creatinine concentrations are rapidly changing. For clinical decisions where creatinine clearance will affect therapy, a 24-hour urine creatinine clearance may be advised. Assignment of CKD stage 1 - 5 for patients with an eGFR near the transition point between stages may be based on clinical assessment of muscle mass and symptoms in addition to eGFR. Blood 10/18/2021 4:20 AM EDT 10/18/2021 4:43 AM EDT Narrative Resulting Agency Comment Spec In Lab Brian Pollock MD CHEMISTRY ORDERABLES [facility] [place] [address] * POCT Glucose (10/18/2021 4:15 AM EDT) Glucose, POC 115 65 - 199 mg/dL [facility] Comment: Supplemental ranges: <140 mg/dL before meals <180 mg/dL all other times of the day Blood 10/18/2021 4:15 AM EDT 10/18/2021 4:15 AM EDT Brian Pollock MD POINT OF CARE TEST O PACO [facility] [place] [address] * POCT Glucose (10/18/2021 3:40 AM EDT) Glucose, POC 118 65 - 199 mg/dL [facility] Comment: Supplemental ranges: <140 mg/dL before meals <180 mg/dL all other times of the day Blood 10/18/2021 3:40 AM EDT 10/18/2021 3:40 AM EDT Brian Pollock MD POINT OF CARE TEST Wesley ANTONIO Performing Organization Address City/[facility]/ZIP Co de Phone Number [facility] [place] [address] * POCT Glucose (10/18/2021 3:02 AM EDT) Glucose, POC 108 65 - 199 mg/dL [facility] Comment: Supplemental ranges: <140 mg/dL before meals <180 mg/dL all other times of the day Blood 10/18/2021 3:02 AM EDT 10/18/2021 3:02 AM EDT Brian Pollock MD POINT OF CARE TEST O PACO [facility] [place] [address] * POCT Glucose (10/18/2021 2:29 AM EDT) Glucose, POC 115 65 - 199 mg/dL [facility] Comment: Supplemental ranges: <140 mg/dL before meals <180 mg/dL all other times of the day Blood 10/18/2021 2:29 AM EDT 10/18/2021 2:29 AM EDT Brian Pollock MD POINT OF CARE TEST O PACO Performing Organization Address City/[facility]/ZIP Co de Phone Number [facility] [place] [address] * POCT Glucose (10/18/2021 1:09 AM EDT) Glucose, POC 148 65 - 199 mg/dL [facility] Comment: Supplemental ranges: <140 mg/dL before meals <180 mg/dL all other times of the day Blood 10/18/2021 1:09 AM EDT 10/18/2021 1:09 AM EDT Brian Pollock MD POINT OF CARE TEST O PACO Performing Organization Address City/[facility] Co de Phone Number [facility] [place] [address] * POCT Glucose (10/17/2021 11:58 PM EDT) Glucose, POC 171 65 - 199 mg/dL [facility] Comment: Supplemental ranges: <140 mg/dL before meals <180 mg/dL all other times of the day Blood 10/17/2021 11:5 8 PM EDT 10/17/2021 11:58 PM EDT Brian Pollock MD POINT OF CARE TEST Wesley ANTONIO Performing Organization Address City/[facility] Co de Phone Number [facility] [place] [address] * (ABNORMAL) POCT Glucose (10/17/2021 10:51 PM EDT) Glucose, POC 202(H) 65 - 199 mg/dL [facility] Comment: Supplemental ranges: <140 mg/dL before meals <180 mg/dL all other times of the day Blood 10/17/2021 10:5 1 PM EDT 10/17/2021 10:51 PM EDT Brian Pollock MD POINT OF CARE TEST O PACO [facility] [place] [address] * (ABNORMAL) POCT Glucose (10/17/2021 10:09 PM EDT) Glucose, POC 252(H) 65 - 199 mg/dL [facility] Comment: Supplemental ranges: <140 mg/dL before meals <180 mg/dL all other times of the day Blood 10/17/2021 10:0 9 PM EDT 10/17/2021 10:09 PM EDT Brian Pollock MD POINT OF CARE TEST Wesley ANTONIO Performing Organization Address [facility]/ZIP Co de Phone Number [facility] [place] [address] * (ABNORMAL) POCT Glucose (10/17/2021 7:56 PM EDT) Glucose, POC 229(H) 65 - 199 mg/dL [facility] Comment: Supplemental ranges: <140 mg/dL before meals <180 mg/dL all other times of the day Blood 10/17/2021 7:56 PM EDT 10/17/2021 7:56 PM EDT Brian Pollock MD POINT OF CARE TEST O PACO Performing Organization Address City/[facility]/ZIP Co de Phone Number [facility] [place] [address] * (ABNORMAL) POCT Glucose (10/17/2021 6:48 PM EDT) Glucose, POC 254(H) 65 - 199 mg/dL [facility] Comment: Supplemental ranges: <140 mg/dL before meals <180 mg/dL all other times of the day Blood 10/17/2021 6:48 PM EDT 10/17/2021 6:48 PM EDT Brian Pollock MD POINT OF CARE TEST O RDERABLES [facility] [place] [address] * Scan, Peripheral Blood (10/17/2021 6:42 PM EDT) [facility] Plat estimate Increased [facility] RBC Morphology Abnormal [facility] Polychromasia Present >5/HPF [facility] Blood 10/17/2021 6:42 PM EDT 10/17/2021 6:59 PM EDT Narrative Resulting Agency Comment Spec In Lab Trino Krishnan CRNA HEMATOLOGY ORDERABL ES Performing Organization Address City/[facility]/ZIP Co de Phone Number [facility] [place] [address] * (ABNORMAL) Differential, Automated (10/17/2021 6:42 PM EDT) [facility] Neutrophil % 88.9 % [facility] Neutrophil Absolute 21.82(H) 1.70 - 6.10 x10(3)/mc L [facility] Lymph % 5.8 % [facility] Lymphocytes Abs 1.4 0.9 - 3.2 x10(3)/mc L [facility] Monocyte % 4.2 % [facility] Monocyte Abs 1.0(H) 0.3 - 0.9 x10(3)/mc L [facility] Eos % 0.0 % [facility] Eosinophils Abs 0.0 0.0 - 0.4 x10(3)/mc L [facility] Basophil % 0.4 % [facility] Baso Absolute 0.1 0.0 - 0.1 x10(3)/ L [facility] Immature Gran % 0.70 % [facility] Comment: Immature granulocytes(IG's)percentage and absolute count will include metamyelocytes, myelocytes, and promyelocytes. Blood smears from CBCs yielding IG's will be scanned manually for concordance. If this scan disagrees with the automated IG or if promyelocytes are noted, a manual differential will be performed. Immature Gran Absolute 0.16(H) 0.00 - 0.04 x10(3)/[facility] LABORATORY Blood 10/17/2021 6:42 PM EDT 10/17/2021 6:59 PM EDT Narrative Resulting Agency Comment Spec In Lab Trino Krishnan [facility] HEMATOLOGY ORDERABL ES Performing Organization Address City/State/[facility] Co de Phone Number [facility] [place] [address] * (ABNORMAL) Hemogram (10/17/2021 6:42 PM EDT) White Blood Cell 24.5(H) 4.0 - 9.5 x10(3)/[facility] LABORATORY Red Blood Cell 2.90(L) 4.00 - 5.21 x10(6)/ L [facility] Hemoglobin 8.1(L) 11.7 - 15.5 g/dL [facility] Hematocrit 26.5(L) 35.7 - 45.8 % [facility] Mean Cell Volume 91.4 82.6 - 94.4 fL [facility] Mean Cell Hemoglobin 27.9 27.1 - 32.0 pg [facility] Mean Cell Hemoglobin Concentration 30.6(L) 31.7 - 35.0 g/dL [facility] Platelet 384(H) 145 - 357 x10(3)/ L [facility] RDW Standard Deviation 54.4(H) 37.0 - 46.0 fL [facility] RDW coefficient of variation 16.1(H) 11.5 - 14.1 % [facility] Mean Platelet Volume 11.5 7.6 - 12.9 fL [facility] NRBC% auto 0.0 % [facility] NRBC Absolute 0.000 0.000 - 0.000 x10(3)/mc L [facility] Blood 10/17/2021 6:42 PM EDT 10/17/2021 6:59 PM EDT Narrative Resulting Agency Comment Spec In Lab Trino Krishnan CRNA HEMATOLOGY ORDERABL ES Performing Organization Address [facility]/ZIP Co de Phone Number [facility] [place] [address] * (ABNORMAL) Magnesium (10/17/2021 6:42 PM EDT) Magnesium 0.67(L) 0.69 - 1.07 mmol/L [facility] Blood 10/17/2021 6:42 PM EDT 10/17/2021 6:59 PM EDT Narrative Resulting Agency Comment Spec In Lab Jd Pinto MD CHEMISTRY ORDERABLES Performing Organization Address [facility]/ZIP Co de Phone Number [facility] [place] [address] * (ABNORMAL) Basic Metabolic Panel (non-fasting) (10/17/2021 6:42 PM EDT) Glucose 221(H) 65 - 199 mg/dL [facility] Comment:Diabetes: >=200 mg/d L plus symptoms Blood Urea Nitrogen 14 8 - 18 mg/dL [facility] Creatinine 1.09 0.70 - 1.20 mg/dL [facility] Sodium 135 135 - 145 mmol/L [facility] Potassium 5.4(H) 3.5 - 5.0 mmol/L [facility] Comment: Please note: ??Patients with WBC >100,000 may have falsely elevated Potassium levels. ??For accurate Potassium quantification in these patients send serum separator tube (gold top) for subsequent determinations. ??Contact the Clinical Chemistry Laboratory if there are any questions. Chloride 104 98 - 107 mmol/L [facility] Carbon Dioxide 14(L) 22 - 31 mmol/L [facility] Anion Gap 17(H) 5 - 15 mmol/L [facility] Calcium 7.5(L) 8.5 - 10.5 mg/dL [facility] Est Glomerular Filtration Rate 56(L) >=60 mL/min/1. 73 m?? [facility] Comment: This patient? s estimated glomerular filtration rate (eGFR) is between 56 mL/min/1.73 m2 (patients with less muscle mass) and 65 mL/min/1.73 m2 (patients with more muscle mass) as determined by the CKD-EPI equation. Assessment of eGFR is not appropriate when creatinine concentrations are rapidly changing. For clinical decisions where creatinine clearance will affect therapy, a 24-hour urine creatinine clearance may be advised. Assignment of CKD stage 1 - 5 for patients with an eGFR near the transition point between stages may be based on clinical assessment of muscle mass and symptoms in addition to eGFR. Blood 10/17/2021 6:42 PM EDT 10/17/2021 6:59 PM EDT Narrative Resulting Agency Comment Spec In Lab Jd Pinto MD CHEMISTRY ORDERABLES [facility] [place] [address] * XR Fluoro No Rad <1Hr - OR Use (10/17/2021 6:40 PM EDT) Narrative Dicom, Auditing User - 10/17/2021 6:40 PM EDT This exam is auto-finalizing. No interpretation was done. Brian Pollock MD IMG FLUORO ORDERABLE S * (ABNORMAL) BLOOD GAS 2 ARTERIAL (10/17/2021 4:56 PM EDT) pH, Arterial 7.24(Crit ical) 7.35 - 7.45 [facility] Comment: Noted by instrument technician. Critical notified to Chetan Daniel by instrument technician immediately following run time. PCO2, Arterial 43 35 - 45 mmHg [facility] PO2, Arterial 207(H) 85 - 104 mmHg [facility] Bicarbonate, Arterial 17.9(L) 20.0 - 26.0 mmol/L [facility] Base Excess, Arterial -9.4(L) -3.0 - 3.0 mmol/L [facility] Hgb Blood Gas 9.2(L) 11.7 - 15.5 g/dL [facility] Oxyhemoglobin, Arterial 95.6 94.0 - 97.0 % [facility] Carboxyhemoglobi n, Arterial 3.9 % [facility] Comment: Nonsmokers: 0.5-1.5% COHB Smokers: Variable, but usually less than 10% Toxic: 20-30% COHB Lethal: Greater than 60% COHB Methemoglobin, Arterial 0.2 <=1.5 % [facility] Na Whole Blood 130(L) 135 - 145 mmol/L [facility] K Whole Blood 5.1(H) 3.5 - 5.0 mmol/L [facility] Comment: Please note: Patients with WBC >100,000 may have falsely elevated Potassium levels. Contact the Clinical Chemistry Laboratory if there are any questions. ICa Whole Blood 1.02(L) 1.15 - 1.33 mmol/L [facility] Comment: Note: ??Total bilirubin higher than 20 mg/dL may lead to falsely low ionized calcium. CL Whole Blood 104 98 - 107 mmol/L [facility] Gluc Whole Bld 303(H) 65 - 199 mg/dL [facility] Comment:Diabetes: >=200 mg/d L plus symptoms. Lactate WB 3.8(H) 0.5 - 2.2 mmol/L [facility] Blood 10/17/2021 4:56 PM EDT 10/17/2021 4:56 PM EDT Brian Pollock MD POINT OF CARE TEST O RDERABLES [facility] [place] [address] * (ABNORMAL) BLOOD GAS 2 ARTERIAL (10/17/2021 3:59 PM EDT) pH, Arterial 7.24(Criti thea) 7.35 - 7.45 [facility] Comment: Noted by instrument technician. Critical not notified by instrument technician immediately following run time. PCO2, Arterial 38 35 - 45 mmHg [facility] PO2, Arterial 202(H) 85 - 104 mmHg [facility] Bicarbonate, Arterial 15.7(L) 20.0 - 26.0 mmol/L [facility] Base Excess, Arterial -11.7(L) -3.0 - 3.0 mmol/L [facility] Hgb Blood Gas 10.3(L) 11.7 - 15.5 g/dL [facility] Oxyhemoglobin, Arterial 95.8 94.0 - 97.0 % [facility] Carboxyhemoglob in, Arterial 3.7 % [facility] Comment: Nonsmokers: 0.5-1.5% COHB Smokers: Variable, but usually less than 10% Toxic: 20-30% COHB Lethal: Greater than 60% COHB Methemoglobin, Arterial 0.2 <=1.5 % [facility] Na Whole Blood 128(L) 135 - 145 mmol/L [facility] K Whole Blood 6.0(H) 3.5 - 5.0 mmol/L [facility] Comment: Please note: Patients with WBC >100,000 may have falsely elevated Potassium levels. Contact the Clinical Chemistry Laboratory if there are any questions. ICa Whole Blood 1.09(L) 1.15 - 1.33 mmol/L [facility] Comment: Note: ??Total bilirubin higher than 20 mg/dL may lead to falsely low ionized calcium. CL Whole Blood 102 98 - 107 mmol/L [facility] Gluc Whole Bld 330(H) 65 - 199 mg/dL [facility] Comment:Diabetes: >=200 mg/d L plus symptoms. Lactate WB 2.4(H) 0.5 - 2.2 mmol/L [facility] Blood 10/17/2021 3:59 PM EDT 10/17/2021 3:59 PM EDT Brian Pollock MD POINT OF CARE TEST O RDERAYESI Performing Organization Address City/[facility]/ZIP Co de Phone Number [facility] [place] [address] * Specimen to Pathology (10/17/2021 3:59 PM EDT) AP Specimen 10/17/2021 3:59 PM EDT 10/17/2021 3:59 PM EDT Narrative [facility] - 10/17/2021 3:59 PM EDT Specimen requisition ordered. ??Separate Pathology report to follow Brian Pollock MD PATHOLOGY/CYTOLOGY O RDNATTY Performing Organization Address [facility]/ZIP Co de Phone Number [facility] [place] [address] * Prepare RBC (10/17/2021 3:10 PM EDT) Dispensed? Yes [facility] Blood 10/17/2021 3:10 PM EDT 10/17/2021 3:07 PM EDT Narrative Resulting Agency Comment Spec In Lab Brian Pollock MD BLOOD BANK PRODUCT O RDERAYESI Performing Organization Address City/[facility]/ZIP Co de Phone Number [facility] [place] [address] * Specimen to Pathology (10/17/2021 2:33 PM EDT) AP Specimen 10/17/2021 2:33 PM EDT 10/17/2021 2:33 PM EDT Narrative [facility] - 10/17/2021 2:33 PM EDT Specimen requisition ordered. ??Separate Pathology report to follow Brian Pollock MD PATHOLOGY/CYTOLOGY O PACO Performing Organization Address [facility] [place] [address] * Specimen to Pathology (10/17/2021 12:45 PM EDT) AP Specimen 10/17/2021 12:4 5 PM EDT 10/17/2021 12:45 PM EDT Narrative [facility] - 10/17/2021 12:45 PM EDT Specimen requisition ordered. ??Separate Pathology report to follow Brian Pollock MD PATHOLOGY/CYTOLOGY O PACO Performing Organization Address [facility] de Phone Number [place] [address] * Specimen to Pathology (10/17/2021 12:45 PM EDT) AP Specimen 10/17/2021 12:4 5 PM EDT 10/17/2021 12:45 PM EDT Narrative [facility] - 10/17/2021 12:45 PM EDT Specimen requisition ordered. ??Separate Pathology report to follow Brian Pollock MD PATHOLOGY/CYTOLOGY Wesley ANTONIO Performing Organization Address [facility] [place] [address] * Surgical Pathology Report (10/17/2021 12:43 PM EDT) Final Diagnosis [id number] ? Location: 1WST; 0101; A The signing pathologist has (i) examined the relevant preparation(s) for the specimen(s) and (ii) rendered or confirmed the diagnosis(es). . 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 SPECIMEN ANALYZED: ??[id number] C10 ANALYSIS: ?Examination of methylation of the ?? MLH1 (MutL homolog 1) gene promoter using methylation specific PCR. RESULTS: ?? MLH1 Methylation DETECTED INTERPRETATION: ??The loss of MLH1 protein expression is most likely due to somatic/epigenetic inactivation of ?? MLH1. ??This patient is very unlikely to have a germline ??MLH1 gene mutation. METHODS: ?? Genomic DNA was extracted from formalin-fixed, paraffin embedded tissue sections. ??Methylation analysis of the ?? C region of the MLH1 ??gene promoter is performed by methylation-specific PCR using the [employer] FAST real-time PCR instrument. ??The percentage of methylated reference (PMR) is then calculated based on 100% methylation control samples and PMR values greater than or equal to 4.0 are considered methylated. LIMITATIONS AND DISCLAIMERS ??: Although unlikely, rare variants (known or unknown), have the potential to interfere with the performance of this test, producing false negative or false positive results. When test results are not consistent with other clinical observations or test results, additional testing should be considered. This test was developed and its performance characteristics determined by the [facility] at [facility] It has not been cleared or approved by the FDA. The laboratory is regulated under CLIA as qualified to perform high-complexity testing. This test is used for clinical purposes. It should not be regarded as investigational or for research. REFERENCES: 1. ??Tru S, Julio Cesar M, Alexis T, Jose GJ, Katherine M, et al. Epigenetic profiling of synchronous colorectal neoplasias by quantitative DNA methylation analysis. ??Modern Pathology , 2006, 19:6955-7338. 2. ??Alejandra H, Brooke P, Dudley L, Vijay P, et al. ??Selection of patients with germline MLH1 mutated Marie syndrome by determination of MLH1 methylation and BRAF mutation. ?? Fam Cancer , 2010, 9(2): 167-172. 3. ??Joanne MT, Austin DD, Case B, Antonio TARI, Alda TEE, Correlation of tumour BRAF mutations and MLH1 methylation with germline mismatch repair (MMR) gene mutations status. ??J Med Rea, ??2012, 49(3): 151-157. 4. ??Katie AM, Alda TEE, Endometrial tumour BRAF mutations and MLH1 promoter methylation as predictors of germline mismatch repair gene mutation status. ? Fam Cancer, ??2014, 13(1): 1-12. . RESULTS _ Electronically signed by: ?Racheal Cortez, Gregg Rice Verified: ??11/06/2021 23:22 ??Molecular Pathologist Performed at: ??-[facility] [place], [place] ?Surgical Pathology DIAGNOSIS A - Right pelvic sentinel [...] the uterine serosa and focally extends into ?adherent ??adipose tissue - Tumor involves one ovary by direct extension - Lymphovascular space invasion is present D - Left pelvic lymph node, excision: One lymph node, positive for malignancy (1/1) - Largest chelsey deposit: 0.4 cm - Extra chelsey extension: not identified Electronically signed by: ?Marcy Raza MD Verified: ??11/01/2021 16:02 ??Pathologist Performed at: ??-[facility] [place]. [place], [place] SYNOPTIC Specimen Parts: ??A - D Specimen ? Procedure: ??Total hysterectomy and bilateral salpingo-oophorectom y ? Specimen Integrity: ??fragmented Tumor ? Tumor Site: ??Endometrium; ??Lower uterine segment ? Tumor Size: ??Cannot be determined - fragmented ? 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 Histologic Grade: ??FIGO grade 3 ? Two-Tier Grading System: ??High grade (FIGO 3) ? Myometrial Invasion: ??Present ?Depth of Myometrial Invasion: ??Cannot be determined - Fragmented ?Myometrial Thickness: ??Cannot be determined - fragmented ?Percentage of Myometrial Invasion: ??Estimated to be 50% or greater ? Adenomyosis: ??Not identified ? Uterine Serosa Involvement: ??Present ? Lower Uterine Segment Involvement: ??Present, myoinvasive ? Cervical Stromal Involvement: ??Not identified ? Other Tissue / Organ Involvement: ??Ovary (side not specified) ? Peritoneal / Ascitic Fluid: ??Not submitted / unknown ? Lymphovascular Invasion (LVI): ??Present - Extensive (greater than or equal to ?3 vessel involvement) Regional Lymph Nodes ? Regional Lymph Node Status: ??Tumor present in pelvic lymph node(s) ? Total Number of Pelvic Nodes with Macrometastasis: ??1 ?Number of Pelvic [place] Nodes with Macrometastasis: ??0 ? Total Number of Pelvic Nodes with Micrometastasis: ??0 ?Number of Pelvic [place] Nodes with Micrometastasis: ??0 ? Laterality of Pelvic Node(s) with Tumor: ??Left non-sentinel ? Size of Largest Pelvic Chelsey Metastatic Deposit: ??4 mm . SYNOPTIC ? Lymph Nodes Examined ?Total Number of Pelvic Nodes Examined: ??3 ?Number of Pelvic [place] Nodes Examined: ??3 ?Total Number of Para-aortic Nodes Examined: ??0 Distant Metastasis ? Distant Site(s) Involved: ??Omentum - focally present in omental adhesion Pathologic Stage Classification (pTNM, AJCC 8th Edition) ? pT Category: ??pT3a ? pN Category: ??pN1a FIGO Stage ? FIGO Stage: ??IIIC1 Additional Findings ? Additional Findings: ??None identified Tumor Block(s): ??C10 CAP eCC May 2021 Release DISCUSSION Immunohistochemistry was previously performed on the prior biopsy. ADDITIONAL STUDIES Immunohistochemistry Studies: Formalin-fixed, paraffin-embedded tissue sections are studied using the polymer technique with appropriate positive and negative controls. ?These IHC studies provide the pathologist with adjunctive diagnostic information. Antibody specificity has been verified by testing antibodies on a series of in-house tissues with known immunohistochemical performance characteristics. The clinical interpretation of any antibody positive staining or its absence is evaluated within the context of clinical presentation, morphology, histopathological criteria and other diagnostic tests. Block ? Antibody ?Result (Positive/Negative) C19 ?inhibin ?positive ? CKAE1/3 ?negative Block ? Antibody ? Result (Positive/Negative) C10 ?MLH1 ?Negative, loss of nuclear staining ? MSH2 ?Positive, intact nuclear staining ? MSH6 ?Positive, intact nuclear staining ? PMS2 ?Negative, loss of nuclear staining Immunostains for MLH1 and PMS2 reveal complete absence of nuclear staining in the tumor cells. Intact nuclear staining is present in the non-neoplastic inflammatory and epithelial cells. Nuclear staining for MSH2 and MSH6 is intact. MLH1 deficient endometrial cancers are known to be associated with a concordant loss of PMS2 staining as well. 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 Less commonly, MLH1 loss is caused by a germline mutation in the MLH1 gene, usually in the setting of a family history of colorectal, endometrial, gastric, or other cancers (HNPCC). Note: MLH1 promoter methylation analysis has been ordered and will be reported separately. IHC [place] Lymph Node Protocol For Endometrial Carcinoma: Formalin-fixed, paraffin-embedded tissue sections are studied using the B-SA system technique with appropriate positive and negative controls. Block ? Antibody ?Result (Degree of immunoreactivity) A1 Level 1 ?CKAE1/3 ?Negative A1 Level 2 ?CKAE1/3 ?Negative . ADDITIONAL STUDIES A2 Level 1 ?CKAE1/3 ?Negative A2 Level 2 ?CKAE1/3 ?Negative A3 Level 1 ?CKAE1/3 ?Negative A3 Level 2 ?CKAE1/3 ?Negative SPECIMEN(S) SUBMITTED A - ??Right pelvic sentinel lymph node, excision (1) B - Enlarged right obturator lymph node, excision (1) C - uterus, cervix, bilateral fallopian tubes and bilateral ovaries with attached omentum, excision (1) D - Left Pelvic Lymph Node, excision (1) CLINICAL INFORMATION Endometrial cancer SPECIMEN PROCESSING A - Labeled/Fixative: Right pelvic sentinel lymph node, fresh. Quantity/Size: Single, 3.3 x 1.7 x 0.7 cm. Tissue Description: Smooth pelletier-brown long fragment with attached adipose tissue Sections/Processing: Serially sectioned and entirely submitted in 3 cassettes labeled A1-A3. B - Labeled/Fixative: Enlarged right obturator lymph node, fresh. Quantity/Size: Single, 3.3 x 1.7 x 1.2 cm. Tissue Description: Fibroadipose tissue with area of pelletier-brown granular surface Sections/Processing: Serially sectioned and entirely submitted in 3 cassettes labeled B1-3. C - Labeled/Fixative: Uterus, cervix, bilateral fallopian tubes and bilateral ovaries with attached omentum, fresh. Quantity: Fragments Size: Cornu to cornu: Anterior to posterior: Dome to Cervix: Weight (overall): 398 g Overall aggregate 30 x 15 x 6 cm Tissue Description: Fragmented, total hysterectomy. ENDOMETRIAL TUMOR Horizontal measurement: Unable to assess Vertical measurement: Unable to assess Qualitative Description: Endophytic Location: Fundus Lower Uterine Segment Involvement: Unable to assess Myometrial Invasion: Involved Cervical Lymphatic or Vascular invasion: Unable to assess UTERUS Serosa: Disrupted, present serosa is dark brown and slightly roughened. Specimen was received fragmented, largest fragment of endometrium measures 9.5 x 7.9 x 4.5 cm, and includes an attached ovary and fallopian tube. This large fragment also demonstrates multiple papillary excrescences on the endometrial surface, fragment of serosa remains, and is inked blue. Other fragments of endometrium are pale yellow to pelletier with papillary features. CERVIX Diameter: 2.3 cm Abnormalities: Cervix was received fragmented diameter is based on largest fragment available. Os: , Unable to assess OVARY 1 . SPECIMEN PROCESSING ?? Size: 2.1 x 1.9 x 1.6 cm. ?? Outer Surface: Pelletier-white, smooth. ?? Cut Surface: unremarkable. OVARY 2 ?? Size: 2.2 x 2.2 x 1.0 cm. ?? Outer Surface: Pelletier-yellow, cerebriform. Immediately adjacent and abuts ? tumor ?? Cut Surface: unremarkable. Fallopian Tube 1: 2.0 x 0.7 x 0.6 cm, fimbriated. Fallopian Tube 2: 2.7 x 0.6 x 0.5 cm, fimbriated. Sections/Processing: Yeast Pumper sections in 27 cassettes as follows: ?C1-C2: ??Yeast Pumper cervix, longitudinal sections ?C3-C7: ??Yeast Pumper presumed lower uterine segment, not full thickness, ? specimen is inked orange on cervical side, longitudinal sections submitted ? sequentially ?C8: ??Yeast Pumper inked serosa with tumor and myometrium ?C9-C10: ??Yeast Pumper inked serosa with full thickness endomyometrium and tumor, ? bisected ?C11-C12: ??Yeast Pumper largest fragment tumor ?C13-C16: ??Yeast Pumper additional small yellow-pelletier fragments of tumor ?C17-C18: ??Yeast Pumper fragment of endometrial cavity, bisected ?C19: ??Yeast Pumper ovary #1 with cyst ?C20-C21: ??Fallopian tube #1, serially sectioned and entirely submitted, bisected ? fimbria in C20 ?C22-C24: ??Yeast Pumper ovary #2, with immediately adjacent tumor ?C25-C27: ??Fallopian tube #2, serially sectioned and entirely submitted, bisected ? fimbria in C25 ?C28-C32: ??Yeast Pumper lower uterine segment, longitudinally sectioned ?C33-C36: Additional service liaison representative lower uterine segment from separate fragment of ? cervical tissue, longitudinally sectioned ?C37-C40: Yeast Pumper attached adipose tissue to serosal surface, presumed ? omentum D - Labeled/Fixative: Left pelvic lymph node, fresh. Quantity/Size: Single, 2.5 x 1.5 x 0.9 cm. Tissue Description: Firm smooth light pelletier nodule Sections/Processing: Serially sectioned and entirely submitted in 3 cassettes labeled D1-D3. ??lv 11/06/2021 11:22 PM EDT [facility] LYMPH NODE SPECIMEN / Unknown 10/17/2021 12:43 PM EDT 10/17/2021 12:43 PM EDT SENTINEL LYMPH NODE / Unknown 10/17/2021 12:43 PM EDT 10/17/2021 12:43 PM EDT Uterine Corpus 10/17/2021 12 :43 PM EDT 10/17/2021 12:43 PM EDT LYMPH NODE SPECIMEN / Unknown 10/17/2021 12:43 PM EDT 10/17/2021 12:43 PM EDT Brian Pollock MD PATHOLOGY/CYTOLOGY O PACO Performing Organization Address City/[facility]/ZIP Co de Phone Number [facility] [place] [address] * (ABNORMAL) POCT Glucose (10/17/2021 10:40 AM EDT) Glucose, POC 201(H) 65 - 199 mg/dL [facility] Comment: Supplemental ranges: <140 mg/dL before meals <180 mg/dL all other times of the day Blood 10/17/2021 10:4 0 AM EDT 10/17/2021 10:40 AM EDT Brian Pollock MD POINT OF CARE TEST O PACO Performing Organization Address [facility]/ZIP Co de Phone Number [facility] [place] [address] documented in this encounter Visit Diagnoses Diagnosis Cigarette smoker Tobacco use disorder Adenocarcinoma of endometrium Malignant neoplasm of corpus uteri, except isthmus Post-operative state Other postprocedural status documented in this encounter Admitting Diagnoses Diagnosis Post-operative state Other postprocedural status documented in this encounter Administered Medications Inactive Administered Medications - up to 3 most recent administrations Medication Order MAR Action Action Date Dose Rate Site acetaminophen (Tylenol) tablet 650 mg 650 mg, Oral, EVERY 6 HOURS SCHEDULED, First dose on Sat10/17/21 at 2000, Until Discontinued, Maximum dose of acetaminophen is 4,000 mg from all sources in 24 hours. Both acetaminophen and ibuprofen, if ordered, should be given even when other ordered pain medications are indicated., Routine Given 10/20/2021 11:41 AM EDT 650 mg Given 10/20/2021 5:26 AM EDT 650 mg Given 10/20/2021 12:14 AM EDT 650 mg atorvastatin (Lipitor) tablet 80 mg 80 mg, Oral, EVERY EVENING, First dose on Sat10/17/21 at 2230, Until Discontinued, Routine Given 10/19/2021 4:02 PM EDT 80 mg Given 10/18/2021 5:59 PM EDT 80 mg Given 10/17/2021 10:59 PM EDT 80 mg dextrose 10% infusion 250 mL, at 1,000 mL/hr, Intravenous, EVERY 30 MIN PRN, Starting on Sat10/17/21 at 2025, Until Sat10/20/21 at 1417, For BG 50-70 mg/dL: Oral treatment preferred: If able to drink, give 120 mL Juice or Regular (not diet) soda OR If NPO, give 15 gram glucose 40% oral gel massaged into buccal mucosa OR if unconscious or uncooperative, give 25 gram (250 mL) Dextrose 10% IV over 15 minutes per protocol OR, if no IV access, 1 mg Glucagon IM. For BG less than 50 mg/dL: Oral treatment preferred: If able to drink, give 240 mL Juice or Regular (not diet) soda OR If NPO, give 30 gram glucose 40% oral gel massaged in buccal mucosa OR if unconscious or uncooperative, give 25 gram (250 mL) Dextrose 10% IV over 15 minutes per protocol OR, if no IV access, 1 mg Glucagon IM. Recheck BG in 30 minutes. May repeat juice/soda, gel, dextrose or glucagon once per episode. For persistent hypoglycemia, consider longer-acting treatment for the duration of the active insulin. dextrose 10% infusion 250 mL, at 1,000 mL/hr, Intravenous, EVERY 30 MIN PRN, Starting on Sat10/18/21 at 1106, Until Sat10/20/21 at 1417, For BG 50-70 mg/dL: Oral treatment preferred: If able to drink, give 120 mL Juice or Regular (not diet) soda OR If NPO, give 15 gram glucose 40% oral gel massaged into buccal mucosa OR if unconscious or uncooperative, give 25 gram (250 mL) Dextrose 10% IV over 15 minutes per protocol OR, if no IV access, 1 mg Glucagon IM. For BG less than 50 mg/dL: Oral treatment preferred: If able to drink, give 240 mL Juice or Regular (not diet) soda OR If NPO, give 30 gram glucose 40% oral gel massaged in buccal mucosa OR if unconscious or uncooperative, give 25 gram (250 mL) Dextrose 10% IV over 15 minutes per protocol OR, if no IV access, 1 mg Glucagon IM. Recheck BG in 30 minutes. May repeat juice/soda, gel, dextrose or glucagon once per episode. For persistent hypoglycemia, consider longer-acting treatment for the duration of the active insulin. docusate sodium (Colace) capsule 100 mg 100 mg, Oral, 2 TIMES DAILY, First dose on Sat10/17/21 at 2230, Until Discontinued, Routine Given 10/17/2021 10:59 PM EDT 100 mg glucagon (Glucagen) (1 mg/mL) injection solution 1 mg 1 mg, Intramuscular, EVERY 30 MIN PRN, Starting on Sat10/17/21 at 2025, Until Sat10/20/21 at 1417, Low blood sugar, For BG 50-70 mg/dL: Oral treatment preferred: If able to drink, give 120 mL Juice or Regular (not diet) soda OR If NPO, give 15 gram glucose 40% oral gel massaged into buccal mucosa OR if unconscious or uncooperative, give 25 gram (250 mL) Dextrose 10% IV over 15 minutes per protocol OR, if no IV access, 1 mg Glucagon IM. For BG less than 50 mg/dL: Oral treatment preferred: If able to drink, give 240 mL Juice or Regular (not diet) soda OR If NPO, give 30 gram glucose 40% oral gel massaged in buccal mucosa OR if unconscious or uncooperative, give 25 gram (250 mL) Dextrose 10% IV over 15 minutes per protocol OR, if no IV access, 1 mg Glucagon IM. Recheck BG in 30 minutes. May repeat juice/soda, gel, dextrose or glucagon once per episode. For persistent hypoglycemia, consider longer-acting treatment for the duration of the active insulin., Routine glucagon (Glucagen) (1 mg/mL) injection solution 1 mg 1 mg, Intramuscular, EVERY 30 MIN PRN, Starting on Sat10/18/21 at 1106, Until Sat10/20/21 at 1417, Low blood sugar, For BG 50-70 mg/dL: Oral treatment preferred: If able to drink, give 120 mL Juice or Regular (not diet) soda OR If NPO, give 15 gram glucose 40% oral gel massaged into buccal mucosa OR if unconscious or uncooperative, give 25 gram (250 mL) Dextrose 10% IV over 15 minutes per protocol OR, if no IV access, 1 mg Glucagon IM. For BG less than 50 mg/dL: Oral treatment preferred: If able to drink, give 240 mL Juice or Regular (not diet) soda OR If NPO, give 30 gram glucose 40% oral gel massaged in buccal mucosa OR if unconscious or uncooperative, give 25 gram (250 mL) Dextrose 10% IV over 15 minutes per protocol OR, if no IV access, 1 mg Glucagon IM. Recheck BG in 30 minutes. May repeat juice/soda, gel, dextrose or glucagon once per episode. For persistent hypoglycemia, consider longer-acting treatment for the duration of the active insulin., Routine glucose (GLUTOSE) 40% oral geL 15-30 g, Buccal, EVERY 30 MIN PRN, Starting on Sat10/17/21 at 2025, Until Sat10/20/21 at 1417, Low blood sugar, For BG 50-70 mg/dL: Oral treatment preferred: If able to drink, give 120 mL Juice or Regular (not diet) soda OR If NPO, give 15 gram glucose 40% oral gel massaged into buccal mucosa OR if unconscious or uncooperative, give 25 gram (250 mL) Dextrose 10% IV over 15 minutes per protocol OR, if no IV access, 1 mg Glucagon IM. For BG less than 50 mg/dL: Oral treatment preferred: If able to drink, give 240 mL Juice or Regular (not diet) soda OR If NPO, give 30 gram glucose 40% oral gel massaged in buccal mucosa OR if unconscious or uncooperative, give 25 gram (250 mL) Dextrose 10% IV over 15 minutes per protocol OR, if no IV access, 1 mg Glucagon IM. Recheck BG in 30 minutes. May repeat juice/soda, gel, dextrose or glucagon once per episode. For persistent hypoglycemia, consider longer-acting treatment for the duration of the active insulin. 1 tube contains 15 grams of glucose (net weight of tube = 37.5 grams., Routine glucose (GLUTOSE) 40% oral geL 15-30 g, Buccal, EVERY 30 MIN PRN, Starting on Sat10/18/21 at 1106, Until Sat10/20/21 at 1417, Low blood sugar, For BG 50-70 mg/dL: Oral treatment preferred: If able to drink, give 120 mL Juice or Regular (not diet) soda OR If NPO, give 15 gram glucose 40% oral gel massaged into buccal mucosa OR if unconscious or uncooperative, give 25 gram (250 mL) Dextrose 10% IV over 15 minutes per protocol OR, if no IV access, 1 mg Glucagon IM. For BG less than 50 mg/dL: Oral treatment preferred: If able to drink, give 240 mL Juice or Regular (not diet) soda OR If NPO, give 30 gram glucose 40% oral gel massaged in buccal mucosa OR if unconscious or uncooperative, give 25 gram (250 mL) Dextrose 10% IV over 15 minutes per protocol OR, if no IV access, 1 mg Glucagon IM. Recheck BG in 30 minutes. May repeat juice/soda, gel, dextrose or glucagon once per episode. For persistent hypoglycemia, consider longer-acting treatment for the duration of the active insulin. 1 tube contains 15 grams of glucose (net weight of tube = 37.5 grams., Routine heparin (porcine) (5,000 units/1 mL) subcutaneous injection 5,000 Units 5,000 Units, Subcutaneous, ONCE, 1 dose, On Sat10/17/21 at 1100, Day of Surgery (Day of Procedure), Routine Given 10/17/2021 10:53 AM EDT 5,000 U nits ibuprofen (Advil) tablet 600 mg 600 mg, Oral, EVERY 6 HOURS PRN, Starting on Sat10/19/21 at 0700, Until Sat10/20/21 at 1417, Pain, Administer orally with milk or food to minimize GI irritation. Maximum dose of 3,200 mg from all sources in 24 hours, Routine insulin glargine-ygfn (Semglee) (100 unit/mL) subcutaneous injection vial 12 Units 12 Units, Subcutaneous, DAILY, First dose (after last modification) on Sat10/18/21 at 1215, Until Discontinued, 1) Do not stop insulin gtt until 2 hours after Lantus is given 2) before discontinuing insulin gtt, the rate MUST be <3u/hr and POCT BG < 200., Routine Given 10/20/2021 8:40 AM EDT 12 Units Given 10/19/2021 9:29 AM EDT 12 Units Ri ght Arm Given 10/18/2021 12:57 PM EDT 12 Units insulin lispro (HumaLOG;Admelog) (100 unit/mL) subcutaneous injection vial 0-8 Units 0-8 Units, Subcutaneous, 3 TIMES DAILY WITH MEALS, First dose on Sat10/18/21 at 1200, Until Discontinued, MEAL ASSOCIATED Give 1 unit: 15 grams of carbohydrate Hold if not eating or if BG less than 70 mg/dL., Routine Given 10/19/2021 1:11 PM EDT 1 Units Right Arm Given 10/19/2021 9:25 AM EDT 4 Units Ri ght Arm Given 10/18/2021 6:00 PM EDT 2 Units insulin lispro (HumaLOG;Admelog) (100 unit/mL) subcutaneous injection vial 1-4 Units 1-4 Units, Subcutaneous, EVERY 4 HOURS, First dose on Sat10/18/21 at 1200, Until Discontinued, CORRECTION BOLUS [1-4 Units] Sensitive Sliding Scale (BG in mg/dL): Correction factor 40 (1 unit of insulin is expected to drop the glucose 40 mg/dL) BG 160 - 200 Give 1 unit BG 201 - 240 Give 2 units BG 241 - 280 Give 3 units BG greater than 280, give 4 units and recheck BG in 2 hours. - If recheck BG is LESS than 280, give no insulin and resume schedule - If recheck BG is GREATER than 280, give 4 units and repeat BG in 2 hours (no more than 3 times) & call for new insulin orders. DO NOT hold if NPO, unless specifically directed to do so by written order. Per Blood Glucose Monitoring Policy, re-check a BG of > 240 mg/dL in 2 hours., Routine Given 10/20/2021 11:44 AM EDT 1 Units Given 10/20/2021 7:44 AM EDT 1 Units Given 10/19/2021 8:07 PM EDT 1 Units insulin lispro (HumaLOG;Admelog) (100 unit/mL) subcutaneous injection vial 3-6 Units 3-6 Units, Subcutaneous, 3 TIMES DAILY WITH MEALS, First dose on Sat10/18/21 at 0800, Until Discontinued, If 50% or less of the meal is eaten, give 3 units immediately following the meal. If more than 50% of the meal is eaten, give 6 units immediately following the meal., Routine Given 10/18/2021 9:39 AM EDT 6 Units insulin regular (Myxredlin) (1 unit/mL) bolus from infusion 0-16 Units 0-16 Units, Intravenous, PER INSULIN PROTOCOL, Starting on Sat10/17/21 at 2025, Until Sat10/18/21 at 1526, Per Protocol, BOLUS order. Type 2 Initial bolus 4 Units. Adjustment bolus per insulin infusion protocol: IV insulin Bolus scale: For BG in mg/dL (250-299 = 8 units, 300-359 = 12 units, greater than 360 = 16 units), Routine Bolus from Bag 10/17/2021 10:11 PM EDT 8 Units insulin regular (Myxredlin) (1 unit/mL) in sodium chloride 0.9% 100 mL infusion 0.5-16 Units/hr (0.5-16 mL/hr), Intravenous, CONTINUOUS, Starting on Sat10/17/21 at 204, Until Sat10/18/21 at 1526, Type 2 diabetes. Current blood glucose 180 - 239 Titration- aim for target range of 140 - 180 mg/dL. Check BG every hour unless otherwise indicated. [[ Initial bolus of 4 units, then begin continuous infusion at 3.5 units/hour. ]] If BG at the time the infusion is started outside of the CURRENT BLOOD GLUCOSE range above, contact MD for new starting rate/bolus order. When infusion is paused, turn it back on as soon as possible per protocol. If BG at the time the infusion is started is outside of the CURRENT BLOOD GLUCOSE range above, contact provider for new starting rate/bolus order. Current BG less than 80 - Stop insulin. If BG less than 70, treat per hypoglycemia protocol. Re-check BG in 30 minutes and as soon as BG is greater than 80, restart with rate 50% of previous rate. If infusion stopped after previous rate had been 0.5 unit/hour, recheck every hour and when BG greater than 100 and higher than last test restart at 0.5 unit/hour. IF INFUSION IS PAUSED, TURN IT BACK ON SOON POSSIBLE, PER PROTOCOL. Current BG 80 - 139 - If BG dropped 10 mg/dL or more since last test, decrease rate by 50% and re-check in 30 minutes. Otherwise, decrease rate by 0.5 units/hour. Current BG 140 - 180 - If BG dropped 50 mg/dL or more since last test, decrease rate by 1 unit/hour. Otherwise, maintain same rate. Current BG 181 - 220 - If BG is lower than last test, maintain same rate. Otherwise, increase rate by 0.5 units/hour. Current BG 221 - 250 - If BG dropped 30 mg/dL or more since last test, maintain same rate. Otherwise, increase rate by 1 unit/hour. Current BG greater than 250 - Increase rate by 1 unit/hour AND bolus with Regular insulin IV as per IV Bolus Scale. Re-check BG in 30 minutes. THE FIRST DOSE OF SC INSULIN OUGHT TO BE ADMINISTERED BEFORE DISCONTINUING THE INFUSION. AN OVERLAP OF 2-3 HOURS IS RECOMMENDED. Continue to monitor the BG hourly., STAT Rate/Dose Change 10/18/2021 1:51 PM EDT 1 Units/hr 1 mL/hr Rate/Dose Verify 10/18/2021 6:37 AM EDT 0.5 Units/hr 0.5 m L/hr Rate/Dose Change 10/18/2021 5:25 AM EDT 0.5 Units/hr 0.5 m L/hr ketorolac (Toradol) (30 mg/mL) injection 15 mg 15 mg, Intravenous, EVERY 6 HOURS, 5 doses, First dose on Sat10/17/21 at 2000, Last dose on Sat10/18/21 at 2000, Routine Given 10/17/2021 8:34 PM EDT 15 mg ketorolac (Toradol) (30 mg/mL) injection 15 mg 15 mg, Intravenous, EVERY 6 HOURS, 4 doses, First dose on Sat10/18/21 at 0700, Last dose on Sat10/19/21 at 0100, Routine Given 10/19/2021 12:09 AM EDT 15 mg Given 10/18/2021 6:02 PM EDT 15 mg Given 10/18/2021 12:55 PM EDT 15 mg lactated ringers infusion 1,000 mL, at 100 mL/hr, Intravenous, CONTINUOUS, Starting on Sat10/17/21 at 2000, Until Sat10/18/21 at 1006 New Bag 10/18/2021 5:53 AM EDT 1,000 mLs 100 m L/hr New Bag 10/17/2021 7:48 PM EDT 1,000 mLs 100 mL/hr magnesium sulfate 2 g in sterile water 50 mL infusion 2 g, Intravenous, ONCE, 1 dose, On Sat10/18/21 at 0815, Administer over 120 Minutes, Minimum infusion duration is 2 hours. New Bag 10/18/2021 8:19 AM EDT 2 g 25 mL/hr nicotine (Nicoderm CQ) 21 mg/24 hr patch 21 mg 21 mg (1 patch), Transdermal, DAILY, First dose on Sat10/18/21 at 0900, Until Discontinued, Apply new patch to nonhairy, clean, dry skin on the upper body or upper outer arm; each patch should be applied to a different site , Routine Patch Applied 10/20/2021 8:39 AM EDT 21 mg 04- Shoulder (Right) Patch Applied 10/19/2021 11:33 AM EDT 21 mg 03- Shoulder (Left) Patch Applied 10/18/2021 8:12 AM EDT 21 mg 04- Shoulder (Right) nicotine (NICODERM CQ) 21 mg/24 hr patch Patch Removal Transdermal, DAILY, First dose on Sat10/18/21 at 0900, Until Discontinued, Remove nicotine 21 mg/24 hr patch nicotine (NICODERM CQ) 21 mg/24 hr patch Patch Verification Transdermal, 2 TIMES DAILY, First dose on Sat10/18/21 at 1015, Until Discontinued, Verify nicotine 21 mg/24 hr patch oxyCODONE (Roxicodone) tablet 10 mg 10 mg, Oral, EVERY 4 HOURS PRN, Starting on Sat10/18/21 at 1233, Until Sat10/20/21 at 1417, Pain, for pain scale 8-10, Routine oxyCODONE (Roxicodone) tablet 5 mg 5 mg, Oral, EVERY 4 HOURS PRN, Starting on Sat10/17/21 at 1937, Until Sat10/18/21 at 1234, Pain, for pain scale 6-8, Routine Given 10/18/2021 3:12 AM EDT 5 mg Given 10/17/2021 10:59 PM EDT 5 mg oxyCODONE (Roxicodone) tablet 5 mg 5 mg, Oral, EVERY 4 HOURS PRN, Starting on Sat10/18/21 at 1233, Until Sat10/20/21 at 1417, Pain, for pain scale 4-7, Routine Given 10/19/2021 11:34 AM EDT 5 mg Given 10/18/2021 9:43 PM EDT 5 mg Given 10/18/2021 2:08 PM EDT 5 mg phenazopyridine (Pyridium) tablet 200 mg 200 mg, Oral, 3 TIMES DAILY AFTER MEALS, First dose on Sat10/18/21 at 1800, 2 doses, Last dose on Sat10/19/21 at 0900 Given 10/19/2021 9:24 AM EDT 200 mg Given 10/18/2021 5:59 PM EDT 200 mg prochlorperazine (Compazine) (5 mg/mL) injection 5 mg 5 mg, Intravenous, EVERY 30 MIN PRN, 2 doses, Starting on Sat10/17/21 at 1803, Until Sat10/17/21 at 2201, Nausea, Maximum total dose of 10 mg (including OR administration). If multiple antiemetics ordered, use ondansetron first and if ineffective use prochlorperazine second and if ineffective use promethazine, PACU Recovery, Routine Given 10/17/2021 7:52 PM EDT 5 mg scopolamine (Transderm Scop) 1 mg over 3 days patch 1 patch 1 patch, Transdermal, ONCE, 1 dose, On Sat10/17/21 at 1145, Day of Surgery (Day of Procedure), Routine Patch Applied 10/17/2021 11:20 AM EDT 1 patch 01- Ear Behind (Left) senna-docusate (Pericolace) 8.6-50 mg per tablet 2 tablet 2 tablet, Oral, 2 TIMES DAILY, First dose on Sat10/18/21 at 0900, Until Discontinued, Routine Given 10/20/2021 8:39 AM EDT 2 tablets Given 10/19/2021 8:07 PM EDT 2 tablets Given 10/19/2021 9:25 AM EDT 2 tablets sodium chloride 0.9 % (flush) (BD PosiFlush Normal Saline 0.9) flush 5 mL 5 mL, Intravenous, 2 TIMES DAILY, First dose on Sat10/17/21 at 2230, Until Discontinued, Routine Given 10/20/2021 8:42 AM EDT 5 mLs Given 10/19/2021 8:08 PM EDT 5 mLs Given 10/19/2021 9:00 AM EDT 5 mLs documented in this encounter Active and Recently Administered Medications Times are shown in EDT. Scheduled Medication Order 10/18/2021 10/19/2021 10/20/2021 acetaminophen (Tylenol) tablet 650 mg 650 mg, Oral, EVERY 6 HOURS SCHEDULED, First dose on Sat10/17/21 at 2000, Until Discontinued, Maximum dose of acetaminophen is 4,000 mg from all sources in 24 hours. Both acetaminophen and ibuprofen, if ordered, should be given even when other ordered pain medications are indicated., Routine 0001 (Given - Provider: Amanda Mendenhall, DORENE)0610 (Given - Provider: Amanda Mendenhall RN)1255 (Given - Provider: Carol Barron RN)1759 (Given - Provider: Carol Barron RN) 0009 (Given - Provider: Lupe Millan RN)0514 (Given - Provider: Lupe Millan RN)1134 (Given - Provider: Amira Conrad RN)1803 (Given - Provider: Melvi Calvin, DORENE) 0014 (Given - Provider: Mera Mckeon, DORENE)0526 (Given - Provider: Mera Mckeon, DORENE)1141 (Given - Provider: Zoe Ashraf, DORENE) atorvastatin (Lipitor) tablet 80 mg 80 mg, Oral, EVERY EVENING, First dose on Sat10/17/21 at 2230, Until Discontinued, Routine 1759 (Given - Provider: Carol Barron RN) 1602 (Given - Provider: Melvi Calvin, DORENE) insulin glargine-ygfn (Semglee) (100 unit/mL) subcutaneous injection vial 12 Units 12 Units, Subcutaneous, DAILY, First dose (after last modification) on Sat10/18/21 at 1215, Until Discontinued, 1) Do not stop insulin gtt until 2 hours after Lantus is given 2) before discontinuing insulin gtt, the rate MUST be <3u/hr and POCT BG < 200., Routine 1257 (Given - Provider: Carol Barron RN) 0929 (Given - Provider: Amira Conrad RN) 0840 (Given - Provider: Zoe Ashraf RN) insulin lispro (HumaLOG;Admelog) (100 unit/mL) subcutaneous injection vial 0-8 Units 0-8 Units, Subcutaneous, 3 TIMES DAILY WITH MEALS, First dose on Sat10/18/21 at 1200, Until Discontinued, [employer] Give 1 unit: 15 grams of carbohydrate Hold if not eating or if BG less than 70 mg/dL., Routine 1256 (Given - Provider: Carol Barron RN - Comment: 45g CHO)1800 (Given - Provider: Carol Barron RN - Comment: 39g CHO) 0925 (Given - Provider: Amira Conrad, DORENE)1311 (Given - Provider: Amira Conrad RN)1803 (Not Given - Provider: eMlvi Calvin RN - Reason: Order parameters not met) 0840 (Not Given - Provider: Zoe Ashraf RN - Reason: Order parameters not met)1200 (Not Given - Provider: Zoe Ashraf RN - Reason: See comment - Comment: No lunch order) insulin lispro (HumaLOG;Admelog) (100 unit/mL) subcutaneous injection vial 1-4 Units(Linked Group 1) 1-4 Units, Subcutaneous, EVERY 4 HOURS, First dose on Sat10/18/21 at 1200, Until Discontinued, CORRECTION BOLUS [1-4 Units] Sensitive Sliding Scale (BG in mg/dL): Correction factor 40 (1 unit of insulin is expected to drop the glucose 40 mg/dL) BG 160 - 200 Give 1 unit BG 201 - 240 Give 2 units BG 241 - 280 Give 3 units BG greater than 280, give 4 units and recheck BG in 2 hours. - If recheck BG is LESS than 280, give no insulin and resume schedule - If recheck BG is GREATER than 280, give 4 units and repeat BG in 2 hours (no more than 3 times) & call for new insulin orders. DO NOT hold if NPO, unless specifically directed to do so by written order. Per Blood Glucose Monitoring Policy, re-check a BG of > 240 mg/dL in 2 hours., Routine 1200 (Not Given - Provider: Carol Barron RN - Reason: Order parameters not met - Comment: BG 151)1543 (Given - Provider: Carol Barron RN - Comment: bg 193)2039 (Given - Provider: Lupe Millan RN) 0010 (Given - Provider: Lupe Millan RN - Comment: BG 178)0400 (Not Given - Provider: Lupe Millan RN - Reason: Order parameters not met - Comment: BG 142)0800 (Not Given - Provider: Amira Conrad RN - Reason: Order parameters not met)1155 (Given - Provider: Amira Conrad RN)1608 (Not Given - Provider: Melvi Calvin RN - Reason: Order parameters not met)2006 (Given - Provider: Mera Mckeon RN) 0017 (Not Given - Provider: Mera Mckeon RN - Reason: Order parameters not met - Comment: BG [phone] (Not Given - Provider: Mera Mckeon RN - Reason: Order parameters not met - Comment: BG 152)0744 (Given - Provider: Zoe Ashraf RN)1144 (Given - Provider: Zoe Ashraf RN - Comment: 174) insulin lispro (HumaLOG;Admelog) (100 unit/mL) subcutaneous injection vial 3-6 Units (CANCELED) 3-6 Units, Subcutaneous, 3 TIMES DAILY WITH MEALS, First dose on Sat10/18/21 at 0800, Until Discontinued, If 50% or less of the meal is eaten, give 3 units immediately following the meal. If more than 50% of the meal is eaten, give 6 units immediately following the meal., Routine 0939 (Given - Provider: Carol Barron RN) ketorolac (Toradol) (30 mg/mL) injection 15 mg (COMPLETED)(Linked Group 2) 15 mg, Intravenous, EVERY 6 HOURS, 4 doses, First dose on Sat10/18/21 at 0700, Last dose on Sat10/19/21 at 0100, Routine 0812 (Given - Provider: Carol Barron RN)1255 (Given - Provider: Carol Barron RN)1802 (Given - Provider: Carol Barron RN) 0009 (Given - Provider: Lupe Millan RN) magnesium sulfate 2 g in sterile water 50 mL infusion (COMPLETED) 2 g, Intravenous, ONCE, 1 dose, On Sat10/18/21 at 0815, Administer over 120 Minutes, Minimum infusion duration is 2 hours. 0819 (New Bag - Provider: Carol Barron RN)1019 (Stopped - Provider: Carol Barron RN) nicotine (Nicoderm CQ) 21 mg/24 hr patch 21 mg(Linked Group 3) 21 mg (1 patch), Transdermal, DAILY, First dose on Sat10/18/21 at 0900, Until Discontinued, Apply new patch to nonhairy, clean, dry skin on the upper body or upper outer arm; each patch should be applied to a different site , Routine 0812 (Patch Applied - Provider: Carol Barron RN) 1133 (Patch Applied - Provider: Amira Conrad RN) 0839 (Patch Applied - Provider: Zoe Ashraf, DORENE) nicotine (NICODERM CQ) 21 mg/24 hr patch Patch Removal(Linked Group 3) Transdermal, DAILY, First dose on Sat10/18/21 at 0900, Until Discontinued, Remove nicotine 21 mg/24 hr patch 09 (Patch Not Removed (add comment) - Provider: Carol Barron RN - Comment: patch not present) 0900 (Patch Removed - Provider: Amira Conrad RN) 0900 (Patch Removed - Provider: Zoe Ashraf, DORENE) nicotine (NICODERM CQ) 21 mg/24 hr patch Patch Verification(Linked Group 3) Transdermal, 2 TIMES DAILY, First dose on Sat10/18/21 at 1015, Until Discontinued, Verify nicotine 21 mg/24 hr patch 1015 (Patch (dose and location) verified - Provider: Carol Barron RN)2099 (Patch (dose and location) verified - Provider: Lupe Millan RN) 0900 (Patch (dose and location) verified - Provider: Amira Conrad RN)2012 (Patch (dose and location) verified - Provider: Mera Mckeon RN) 0900 (Patch (dose and location) verified - Provider: Zoe Ashraf RN) phenazopyridine (Pyridium) tablet 200 mg (COMPLETED) 200 mg, Oral, 3 TIMES DAILY AFTER MEALS, First dose on Sat10/18/21 at 1800, 2 doses, Last dose on Sat10/19/21 at 0900 1759 (Given - Provider: Carol Barron, RN) 0924 (Given - Provider: Amira Conrad, DORENE) senna-docusate (Pericolace) 8.6-50 mg per tablet 2 tablet 2 tablet, Oral, 2 TIMES DAILY, First dose on Sat10/18/21 at 0900, Until Discontinued, Routine 0812 (Given - Provider: Carol Barron RN)2039 (Given - Provider: Lupe Millan RN) 09 (Given - Provider: Amira Conrad, DORENE)2006 (Given - Provider: Mera Mckeon, DORENE) 0839 (Given - Provider: Zoe Ashraf, DORENE) sodium chloride 0.9 % (flush) (BD PosiFlush Normal Saline 0.9) flush 5 mL 5 mL, Intravenous, 2 TIMES DAILY, First dose on Sat10/17/21 at 2230, Until Discontinued, Routine 0900 (Given - Provider: Carol Barron RN)2099 (Given - Provider: Lupe Millan RN) 09 (Given - Provider: Amira Conrad, DORENE)2007 (Given - Provider: Mera Mckeon, DORENE) 0842 (Given - Provider: Zoe Ashraf, DORENE) Continuous Medication Order 10/18/2021 10/19/2021 10/20/2021 insulin regular (Myxredlin) (1 unit/mL) in sodium chloride 0.9% 100 mL infusion (CANCELED) 0.5-16 Units/hr (0.5-16 mL/hr), Intravenous, CONTINUOUS, Starting on Sat10/17/21 at 2045, Until Sat10/18/21 at 1526, Type 2 diabetes. Current blood glucose 180 - 239 Titration- aim for target range of 140 - 180 mg/dL. Check BG every hour unless otherwise indicated. [[ Initial bolus of 4 units, then begin continuous infusion at 3.5 units/hour. ]] If BG at the time the infusion is started outside of the CURRENT BLOOD GLUCOSE range above, contact MD for new starting rate/bolus order. When infusion is paused, turn it back on as soon as possible per protocol. If BG at the time the infusion is started is outside of the CURRENT BLOOD GLUCOSE range above, contact provider for new starting rate/bolus order. Current BG less than 80 - Stop insulin. If BG less than 70, treat per hypoglycemia protocol. Re-check BG in 30 minutes and as soon as BG is greater than 80, restart with rate 50% of previous rate. If infusion stopped after previous rate had been 0.5 unit/hour, recheck every hour and when BG greater than 100 and higher than last test restart at 0.5 unit/hour. IF INFUSION IS PAUSED, TURN IT BACK ON SOON POSSIBLE, PER PROTOCOL. Current BG 80 - 139 - If BG dropped 10 mg/dL or more since last test, decrease rate by 50% and re-check in 30 minutes. Otherwise, decrease rate by 0.5 units/hour. Current BG 140 - 180 - If BG dropped 50 mg/dL or more since last test, decrease rate by 1 unit/hour. Otherwise, maintain same rate. Current BG 181 - 220 - If BG is lower than last test, maintain same rate. Otherwise, increase rate by 0.5 units/hour. Current BG 221 - 250 - If BG dropped 30 mg/dL or more since last test, maintain same rate. Otherwise, increase rate by 1 unit/hour. Current BG greater than 250 - Increase rate by 1 unit/hour AND bolus with Regular insulin IV as per IV Bolus Scale. Re-check BG in 30 minutes. THE FIRST DOSE OF SC INSULIN OUGHT TO BE ADMINISTERED BEFORE DISCONTINUING THE INFUSION. AN OVERLAP OF 2-3 HOURS IS RECOMMENDED. Continue to monitor the BG hourly., STAT 0006 (Rate/Dose Verify - Provider: Amanda Mendenhall RN - Comment: Verified with Angella Garrett RN)0113 (Rate/Dose Verify - Provider: Amanda Mendenhall RN - Comment: Verfied with Angella Garrett RN)0231 (Rate/Dose Change - Provider: Amanda Mendenhall RN - Comment: Verfied by Angella Garrett RN)0307 (Rate/Dose Change - Provider: Amanda Mendenhall RN - Comment: Verfied by Angella Garrett RN)0418 (Rate/Dose Change - Provider: Amanda Mendenhall RN - Comment: Verfied by Angella Garrett RN)0525 (Rate/Dose Change - Provider: Amanda Mendenhall RN - Comment: Siddharth Guerra RN checked.)0637 (Rate/Dose Verify - Provider: Amanda Mendenhall RN - Comment: BGL 126 - Verified with Angella Garrett RN)1351 (Rate/Dose Change - Provider: Carol Barron RN - Comment: Checked with DORENE SCOTT)1526 (Stopped - Provider: Carol Barron RN) lactated ringers infusion (CANCELED) 1,000 mL, at 100 mL/hr, Intravenous, CONTINUOUS, Starting on Sat10/17/21 at 2000, Until Sat10/18/21 at 1006 0553 (New Bag - Provider: Amanda Mendenhall RN)1006 (Stopped - Provider: Carol Barron RN) PRN Medication Order 10/18/2021 10/19/2021 10/20/2021 dextrose 10% infusion(Linked Group 4) 250 mL, at 1,000 mL/hr, Intravenous, EVERY 30 MIN PRN, Starting on Sat10/17/21 at 2025, Until Sat10/20/21 at 1417, For BG 50-70 mg/dL: Oral treatment preferred: If able to drink, give 120 mL Juice or Regular (not diet) soda OR If NPO, give 15 gram glucose 40% oral gel massaged into buccal mucosa OR if unconscious or uncooperative, give 25 gram (250 mL) Dextrose 10% IV over 15 minutes per protocol OR, if no IV access, 1 mg Glucagon IM. For BG less than 50 mg/dL: Oral treatment preferred: If able to drink, give 240 mL Juice or Regular (not diet) soda OR If NPO, give 30 gram glucose 40% oral gel massaged in buccal mucosa OR if unconscious or uncooperative, give 25 gram (250 mL) Dextrose 10% IV over 15 minutes per protocol OR, if no IV access, 1 mg Glucagon IM. Recheck BG in 30 minutes. May repeat juice/soda, gel, dextrose or glucagon once per episode. For persistent hypoglycemia, consider longer-acting treatment for the duration of the active insulin. dextrose 10% infusion(Linked Group 5) 250 mL, at 1,000 mL/hr, Intravenous, EVERY 30 MIN PRN, Starting on Sat10/18/21 at 1106, Until Sat10/20/21 at 1417, For BG 50-70 mg/dL: Oral treatment preferred: If able to drink, give 120 mL Juice or Regular (not diet) soda OR If NPO, give 15 gram glucose 40% oral gel massaged into buccal mucosa OR if unconscious or uncooperative, give 25 gram (250 mL) Dextrose 10% IV over 15 minutes per protocol OR, if no IV access, 1 mg Glucagon IM. For BG less than 50 mg/dL: Oral treatment preferred: If able to drink, give 240 mL Juice or Regular (not diet) soda OR If NPO, give 30 gram glucose 40% oral gel massaged in buccal mucosa OR if unconscious or uncooperative, give 25 gram (250 mL) Dextrose 10% IV over 15 minutes per protocol OR, if no IV access, 1 mg Glucagon IM. Recheck BG in 30 minutes. May repeat juice/soda, gel, dextrose or glucagon once per episode. For persistent hypoglycemia, consider longer-acting treatment for the duration of the active insulin. glucagon (Glucagen) (1 mg/mL) injection solution 1 mg(Linked Group 4) 1 mg, Intramuscular, EVERY 30 MIN PRN, Starting on Sat10/17/21 at 2025, Until Sat10/20/21 at 1417, Low blood sugar, For BG 50-70 mg/dL: Oral treatment preferred: If able to drink, give 120 mL Juice or Regular (not diet) soda OR If NPO, give 15 gram glucose 40% oral gel massaged into buccal mucosa OR if unconscious or uncooperative, give 25 gram (250 mL) Dextrose 10% IV over 15 minutes per protocol OR, if no IV access, 1 mg Glucagon IM. For BG less than 50 mg/dL: Oral treatment preferred: If able to drink, give 240 mL Juice or Regular (not diet) soda OR If NPO, give 30 gram glucose 40% oral gel massaged in buccal mucosa OR if unconscious or uncooperative, give 25 gram (250 mL) Dextrose 10% IV over 15 minutes per protocol OR, if no IV access, 1 mg Glucagon IM. Recheck BG in 30 minutes. May repeat juice/soda, gel, dextrose or glucagon once per episode. For persistent hypoglycemia, consider longer-acting treatment for the duration of the active insulin., Routine glucagon (Glucagen) (1 mg/mL) injection solution 1 mg(Linked Group 5) 1 mg, Intramuscular, EVERY 30 MIN PRN, Starting on Sat10/18/21 at 1106, Until Sat10/20/21 at 1417, Low blood sugar, For BG 50-70 mg/dL: Oral treatment preferred: If able to drink, give 120 mL Juice or Regular (not diet) soda OR If NPO, give 15 gram glucose 40% oral gel massaged into buccal mucosa OR if unconscious or uncooperative, give 25 gram (250 mL) Dextrose 10% IV over 15 minutes per protocol OR, if no IV access, 1 mg Glucagon IM. For BG less than 50 mg/dL: Oral treatment preferred: If able to drink, give 240 mL Juice or Regular (not diet) soda OR If NPO, give 30 gram glucose 40% oral gel massaged in buccal mucosa OR if unconscious or uncooperative, give 25 gram (250 mL) Dextrose 10% IV over 15 minutes per protocol OR, if no IV access, 1 mg Glucagon IM. Recheck BG in 30 minutes. May repeat juice/soda, gel, dextrose or glucagon once per episode. For persistent hypoglycemia, consider longer-acting treatment for the duration of the active insulin., Routine glucose (GLUTOSE) 40% oral geL(Linked Group 4) 15-30 g, Buccal, EVERY 30 MIN PRN, Starting on Sat10/17/21 at 2025, Until Sat10/20/21 at 1417, Low blood sugar, For BG 50-70 mg/dL: Oral treatment preferred: If able to drink, give 120 mL Juice or Regular (not diet) soda OR If NPO, give 15 gram glucose 40% oral gel massaged into buccal mucosa OR if unconscious or uncooperative, give 25 gram (250 mL) Dextrose 10% IV over 15 minutes per protocol OR, if no IV access, 1 mg Glucagon IM. For BG less than 50 mg/dL: Oral treatment preferred: If able to drink, give 240 mL Juice or Regular (not diet) soda OR If NPO, give 30 gram glucose 40% oral gel massaged in buccal mucosa OR if unconscious or uncooperative, give 25 gram (250 mL) Dextrose 10% IV over 15 minutes per protocol OR, if no IV access, 1 mg Glucagon IM. Recheck BG in 30 minutes. May repeat juice/soda, gel, dextrose or glucagon once per episode. For persistent hypoglycemia, consider longer-acting treatment for the duration of the active insulin. 1 tube contains 15 grams of glucose (net weight of tube = 37.5 grams., Routine glucose (GLUTOSE) 40% oral geL(Linked Group 5) 15-30 g, Buccal, EVERY 30 MIN PRN, Starting on Sat10/18/21 at 1106, Until Sat10/20/21 at 1417, Low blood sugar, For BG 50-70 mg/dL: Oral treatment preferred: If able to drink, give 120 mL Juice or Regular (not diet) soda OR If NPO, give 15 gram glucose 40% oral gel massaged into buccal mucosa OR if unconscious or uncooperative, give 25 gram (250 mL) Dextrose 10% IV over 15 minutes per protocol OR, if no IV access, 1 mg Glucagon IM. For BG less than 50 mg/dL: Oral treatment preferred: If able to drink, give 240 mL Juice or Regular (not diet) soda OR If NPO, give 30 gram glucose 40% oral gel massaged in buccal mucosa OR if unconscious or uncooperative, give 25 gram (250 mL) Dextrose 10% IV over 15 minutes per protocol OR, if no IV access, 1 mg Glucagon IM. Recheck BG in 30 minutes. May repeat juice/soda, gel, dextrose or glucagon once per episode. For persistent hypoglycemia, consider longer-acting treatment for the duration of the active insulin. 1 tube contains 15 grams of glucose (net weight of tube = 37.5 grams., Routine ibuprofen (Advil) tablet 600 mg(Linked Group 2) 600 mg, Oral, EVERY 6 HOURS PRN, Starting on [place] 10/19/21 at 0700, Until Sat10/20/21 at 1417, Pain, Administer orally with milk or food to minimize GI irritation. Maximum dose of 3,200 mg from all sources in 24 hours, Routine lidocaine (Xylocaine) 1% (10 mg/mL) injection 3 mg 3 mg (0.3 mL), Subcutaneous, ONCE PRN, 1 dose, Starting on Sat10/17/21 at 2200, Until Sat10/20/21 at 1417, for discomfort with PIV insertion, Routine oxyCODONE (Roxicodone) tablet 10 mg(Linked Group 6) 10 mg, Oral, EVERY 4 HOURS PRN, Starting on Sat10/18/21 at 1233, Until Sat10/20/21 at 1417, Pain, for pain scale 8-10, Routine 1408 (See Alternative - Provider: Carol Barron RN)2143 (See Alternative - Provider: Lupe Millan, DORENE) 1134 (See Alternative - Provider: Amira Conrad RN) oxyCODONE (Roxicodone) tablet 5 mg (CANCELED) 5 mg, Oral, EVERY 4 HOURS PRN, Starting on Sat10/17/21 at 1937, Until Sat10/18/21 at 1234, Pain, for pain scale 6-8, Routine 0312 (Given - Provider: Amanda Mendenhall RN) oxyCODONE (Roxicodone) tablet 5 mg(Linked Group 6) 5 mg, Oral, EVERY 4 HOURS PRN, Starting on Sat10/18/21 at 1233, Until Sat10/20/21 at 1417, Pain, for pain scale 4-7, Routine 1408 (Given - Provider: Carol Barron RN)2143 (Given - Provider: Lupe Millan, DORENE) 1134 (Given - Provider: Amiar Conrad RN) polyethylene glycoL (Miralax) packet 17 g 17 g, Oral, DAILY PRN, Starting on Sat10/17/21 at 2200, Until Sat10/20/21 at 1417, Constipation, Administer if no bowel movement within 48 hours to achieve: (1) One bowel movement at least every 48 hours, AND (2) without straining. If multiple PRN bowel medications ordered, start with polyethylene glycol, then lactulose, then oral bisacodyl, then bisacodyl suppository, then magnesium citrate, then tap water enema. Multiple medications may be given concomitantly for constipation., Routine sodium chloride 0.9 % (flush) (BD PosiFlush Normal Saline 0.9) flush 5-20 mL 5-20 mL, Intravenous, EVERY 1 MIN PRN, Starting on Sat10/17/21 at 2200, Until Sat10/20/21 at 1417, flush, Flush pertains to all indwelling lines. Flush per protocol found in the job aid using the link provided on this medication record., Routine Linked Groups Order Group 1: POCT Fingerstick Glucose (CANCELED) Routine, EVERY 4 HOURS, First occurrence on Sat10/18/21 at 1200, Until Specified, After stopping insulin gtt And insulin lispro (HumaLOG;Admelog) (100 unit/mL) subcutaneous injection vial 1-4 UnitsJump to med 1-4 Units, Subcutaneous, EVERY 4 HOURS, First dose on Sat10/18/21 at 1200, Until Discontinued, CORRECTION BOLUS [1-4 Units] Sensitive Sliding Scale (BG in mg/dL): Correction factor 40 (1 unit of insulin is expected to drop the glucose 40 mg/dL) BG 160 - 200 Give 1 unit BG 201 - 240 Give 2 units BG 241 - 280 Give 3 units BG greater than 280, give 4 units and recheck BG in 2 hours. - If recheck BG is LESS than 280, give no insulin and resume schedule - If recheck BG is GREATER than 280, give 4 units and repeat BG in 2 hours (no more than 3 times) & call for new insulin orders. DO NOT hold if NPO, unless specifically directed to do so by written order. Per Blood Glucose Monitoring Policy, re-check a BG of > 240 mg/dL in 2 hours., Routine Group 2: ketorolac (Toradol) (30 mg/mL) injection 15 mg (COMPLETED)Jump to med 15 mg, Intravenous, EVERY 6 HOURS, 4 doses, First dose on Sat10/18/21 at 0700, Last dose on Sat10/19/21 at 0100, Routine Followed by ibuprofen (Advil) tablet 600 mgJump to med 600 mg, Oral, EVERY 6 HOURS PRN, Starting on Sat10/19/21 at 0700, Until Sat10/20/21 at 1417, Pain, Administer orally with milk or food to minimize GI irritation. Maximum dose of 3,200 mg from all sources in 24 hours, Routine Group 3: nicotine (Nicoderm CQ) 21 mg/24 hr patch 21 mgJump to med 21 mg (1 patch), Transdermal, DAILY, First dose on Sat10/18/21 at 0900, Until Discontinued, Apply new patch to nonhairy, clean, dry skin on the upper body or upper outer arm; each patch should be applied to a different site , Routine And nicotine (NICODERM CQ) 21 mg/24 hr patch Patch VerificationJump to med Transdermal, 2 TIMES DAILY, First dose on Sat10/18/21 at 1015, Until Discontinued, Verify nicotine 21 mg/24 hr patch And nicotine (NICODERM CQ) 21 mg/24 hr patch Patch RemovalJump to med Transdermal, DAILY, First dose on Sat10/18/21 at 0900, Until Discontinued, Remove nicotine 21 mg/24 hr patch Group 4: glucose (GLUTOSE) 40% oral geLJump to med 15-30 g, Buccal, EVERY 30 MIN PRN, Starting on Sat10/17/21 at 2024, Until Sat10/20/21 at 1417, Low blood sugar, For BG 50-70 mg/dL: Oral treatment preferred: If able to drink, give 120 mL Juice or Regular (not diet) soda OR If NPO, give 15 gram glucose 40% oral gel massaged into buccal mucosa OR if unconscious or uncooperative, give 25 gram (250 mL) Dextrose 10% IV over 15 minutes per protocol OR, if no IV access, 1 mg Glucagon IM. For BG less than 50 mg/dL: Oral treatment preferred: If able to drink, give 240 mL Juice or Regular (not diet) soda OR If NPO, give 30 gram glucose 40% oral gel massaged in buccal mucosa OR if unconscious or uncooperative, give 25 gram (250 mL) Dextrose 10% IV over 15 minutes per protocol OR, if no IV access, 1 mg Glucagon IM. Recheck BG in 30 minutes. May repeat juice/soda, gel, dextrose or glucagon once per episode. For persistent hypoglycemia, consider longer- acting treatment for the duration of the active insulin. 1 tube contains 15 grams of glucose (net weight of tube = 37.5 grams., Routine Or dextrose 10% infusionJump to med 250 mL, at 1,000 mL/hr, Intravenous, EVERY 30 MIN PRN, Starting on Sat10/17/21 at 2024, Until Sat10/20/21 at 1417, For BG 50-70 mg/dL: Oral treatment preferred: If able to drink, give 120 mL Juice or Regular (not diet) soda OR If NPO, give 15 gram glucose 40% oral gel massaged into buccal mucosa OR if unconscious or uncooperative, give 25 gram (250 mL) Dextrose 10% IV over 15 minutes per protocol OR, if no IV access, 1 mg Glucagon IM. For BG less than 50 mg/dL: Oral treatment preferred: If able to drink, give 240 mL Juice or Regular (not diet) soda OR If NPO, give 30 gram glucose 40% oral gel massaged in buccal mucosa OR if unconscious or uncooperative, give 25 gram (250 mL) Dextrose 10% IV over 15 minutes per protocol OR, if no IV access, 1 mg Glucagon IM. Recheck BG in 30 minutes. May repeat juice/soda, gel, dextrose or glucagon once per episode. For persistent hypoglycemia, consider longer-acting treatment for the duration of the active insulin. Or glucagon (Glucagen) (1 mg/mL) injection solution 1 mgJump to med 1 mg, Intramuscular, EVERY 30 MIN PRN, Starting on Sat10/17/21 at 2025, Until Sat10/20/21 at 1417, Low blood sugar, For BG 50-70 mg/dL: Oral treatment preferred: If able to drink, give 120 mL Juice or Regular (not diet) soda OR If NPO, give 15 gram glucose 40% oral gel massaged into buccal mucosa OR if unconscious or uncooperative, give 25 gram (250 mL) Dextrose 10% IV over 15 minutes per protocol OR, if no IV access, 1 mg Glucagon IM. For BG less than 50 mg/dL: Oral treatment preferred: If able to drink, give 240 mL Juice or Regular (not diet) soda OR If NPO, give 30 gram glucose 40% oral gel massaged in buccal mucosa OR if unconscious or uncooperative, give 25 gram (250 mL) Dextrose 10% IV over 15 minutes per protocol OR, if no IV access, 1 mg Glucagon IM. Recheck BG in 30 minutes. May repeat juice/soda, gel, dextrose or glucagon once per episode. For persistent hypoglycemia, consider longer-acting treatment for the duration of the active insulin., Routine Group 5: glucose (GLUTOSE) 40% oral geLJump to med 15-30 g, Buccal, EVERY 30 MIN PRN, Starting on Sat10/18/21 at 1106, Until Sat10/20/21 at 1417, Low blood sugar, For BG 50-70 mg/dL: Oral treatment preferred: If able to drink, give 120 mL Juice or Regular (not diet) soda OR If NPO, give 15 gram glucose 40% oral gel massaged into buccal mucosa OR if unconscious or uncooperative, give 25 gram (250 mL) Dextrose 10% IV over 15 minutes per protocol OR, if no IV access, 1 mg Glucagon IM. For BG less than 50 mg/dL: Oral treatment preferred: If able to drink, give 240 mL Juice or Regular (not diet) soda OR If NPO, give 30 gram glucose 40% oral gel massaged in buccal mucosa OR if unconscious or uncooperative, give 25 gram (250 mL) Dextrose 10% IV over 15 minutes per protocol OR, if no IV access, 1 mg Glucagon IM. Recheck BG in 30 minutes. May repeat juice/soda, gel, dextrose or glucagon once per episode. For persistent hypoglycemia, consider longer- acting treatment for the duration of the active insulin. 1 tube contains 15 grams of glucose (net weight of tube = 37.5 grams., Routine Or dextrose 10% infusionJump to med 250 mL, at 1,000 mL/hr, Intravenous, EVERY 30 MIN PRN, Starting on Sat10/18/21 at 1106, Until Sat10/20/21 at 1417, For BG 50-70 mg/dL: Oral treatment preferred: If able to drink, give 120 mL Juice or Regular (not diet) soda OR If NPO, give 15 gram glucose 40% oral gel massaged into buccal mucosa OR if unconscious or uncooperative, give 25 gram (250 mL) Dextrose 10% IV over 15 minutes per protocol OR, if no IV access, 1 mg Glucagon IM. For BG less than 50 mg/dL: Oral treatment preferred: If able to drink, give 240 mL Juice or Regular (not diet) soda OR If NPO, give 30 gram glucose 40% oral gel massaged in buccal mucosa OR if unconscious or uncooperative, give 25 gram (250 mL) Dextrose 10% IV over 15 minutes per protocol OR, if no IV access, 1 mg Glucagon IM. Recheck BG in 30 minutes. May repeat juice/soda, gel, dextrose or glucagon once per episode. For persistent hypoglycemia, consider longer-acting treatment for the duration of the active insulin. Or glucagon (Glucagen) (1 mg/mL) injection solution 1 mgJump to med 1 mg, Intramuscular, EVERY 30 MIN PRN, Starting on Sat10/18/21 at 1106, Until Sat10/20/21 at 1417, Low blood sugar, For BG 50-70 mg/dL: Oral treatment preferred: If able to drink, give 120 mL Juice or Regular (not diet) soda OR If NPO, give 15 gram glucose 40% oral gel massaged into buccal mucosa OR if unconscious or uncooperative, give 25 gram (250 mL) Dextrose 10% IV over 15 minutes per protocol OR, if no IV access, 1 mg Glucagon IM. For BG less than 50 mg/dL: Oral treatment preferred: If able to drink, give 240 mL Juice or Regular (not diet) soda OR If NPO, give 30 gram glucose 40% oral gel massaged in buccal mucosa OR if unconscious or uncooperative, give 25 gram (250 mL) Dextrose 10% IV over 15 minutes per protocol OR, if no IV access, 1 mg Glucagon IM. Recheck BG in 30 minutes. May repeat juice/soda, gel, dextrose or glucagon once per episode. For persistent hypoglycemia, consider longer-acting treatment for the duration of the active insulin., Routine Group 6: oxyCODONE (Roxicodone) tablet 5 mgJump to med 5 mg, Oral, EVERY 4 HOURS PRN, Starting on Sat10/18/21 at 1233, Until Sat10/20/21 at 1417, Pain, for pain scale 4-7, Routine Or oxyCODONE (Roxicodone) tablet 10 mgJump to med 10 mg, Oral, EVERY 4 HOURS PRN, Starting on Sat10/18/21 at 1233, Until Sat10/20/21 at 1417, Pain, for pain scale 8-10, Routine documented in this encounter Care Teams Lawn Mower Repairer Relationship Specialty Start Date End Date Pk Trevizo MD [address] [place] [address] PCP - General Emergency Medicine 05/02/21 documented as of this encounter
--- OUTSIDE RECORDS SUMMARY | 2024-04-14 12:56 | XMS_ITS | Encounter Summary ---
[facility] [address] Care Team Providers Care Blast Furnace Helper Name Role Phone Pk Trevizo MD Primary Care Provider Encounter Details Date Type Department Care Team (Latest Contact Info) Description 11/08/2021 Multidisciplinary Ca re Committee [place] [phone] Stefania Campbell, RN Social History Tobacco Use Types Packs/Day [...] as of this encounter Progress Notes * Stefania Campbell, RN - 11/08/2021 1:00 PM EDT Tumor Board Recommendation: 6 cycles carbo/taxol. documented in this encounter Plan of Treatment Not on file documented as of this encounter Visit Diagnoses Not on filedocumented in this encounter Care Teams Blast Furnace Helper Relationship Specialty Start Date End Date Pk Trevizo MD [address] [place] [address] PCP - General Emergency Medicine 05/02/21 documented as of this encounter
--- OUTSIDE RECORDS SUMMARY | 2024-04-14 12:56 | XMS_ITS | Encounter Summary ---
Author Organization [facility] [place] [address] Care Team Providers Care Strain Technician Name Role Phone Pk Trevizo MD Primary Care Provider [phone] Reason for Referral * Diagnostic Test (Routine) - Closed Specialty Diagnoses / Procedures Referred By Kit saravia Referred To Contact Radiology Diagnoses Adenocarcinoma of endometrium Procedures IR Mediport Placement Brian Vidales MD [facility] DR [place] [address] [place] [address] Referral ID Status Reason Start Date Expiration Date V isits Requested Visits Authorized [id number] Closed Specialty Service Requested 11/13/2021 05/16/2023 1 1 Encounter Details Date Type Department Care Team (Late st Contact Info) Description 11/13/2021 Orders Only [place] [address] Stefania Campbell, DORENE Adenocarcinoma of endometrium Social History Tobacco Use [...] as of this encounter Progress Notes * Coni Collins - 11/13/2021 1:59 PM EDT Call IR In the AM please put in afternoon so we can do chemo teach before in person due to pt traveling documented in this encounter Plan of Treatment Not on file documented as of this encounter Results * IR Mediport Placement (11/24/2021 3:22 PM EDT) Anatomical Region Laterality Modality X-Ray Angiograph y Narrative 11/24/2021 3:25 PM EDT IR Procedure Note Procedure: ?? US guided right IJV access ? Single lumen chest port placement (CT compatible) History/indication: ??56 yr old F patient w/ new diagnosis of endometrial adenoCa (s/p hysterectomy, BSO, omental biopsy, sentinel lymph node mapping and biopsy). Planned now for systemic therapy Chest port placement requested. Past medical history is significant for cigarette smoker, HTN, and obesity. Technique: ??After discussing risks (including infection, hemorrhage, occlusion), and benefits, the patient consented to the procedure and conscious sedation. Split doses of fentanyl and versed were administered by the IR nurse during continuous monitoring of pulse, blood pressure, end tidal CO2 and oxygen saturation for alleviation of discomfort. ??Maximal sterile barrier technique was employed throughout the case. After sterile preparation of the right lateral neck and upper chest, ultrasound was used to identify and access the internal jugular vein using a micropuncture technique. ??1% lidocaine was used for anesthesia. A 0.018 wire was advanced into SVC under fluoroscopic guidance. ??A short 4 Fr dilator was placed. ?? A subcutaneous pocket was created for the port reservoir inferiorly and laterally using blunt dissection after a skin incision. Additional anesthesia was achieved with bupivicaine with epinepherine. The single lumen port reservoir was attached to the catheter and placed into the pocket. ??A blunt ended tunneler was then used to bring the infusion catheter through the tunnel to the venotomy site. ??The venotomy was sequentially dilated over a 0.035 Mcneil wire and a peel-away sheath placed. The catheter was cut to length and inserted via the sheath. The catheter tip was positioned in the distal SVC, documented with a digital fluoroscopic image. The port flushed and aspirated well. ??The pocket was closed using a two layer technique with absorbable suture material (2-0 and 4-0 Vicryl). The superficial skin was approximated with tissue adhesive. The patient tolerated the procedure well. ?? Complications: ?None immediate; ??EBL=0 Medications: ??1% lidocaine (<10 cc); versed 3 mg; fentanyl 150 mcg IV contrast: ?None Fluoroscopy time: ??0.3 minutes Findings: 1. Patent right IJV by US evaluation. 2. Single lumen chest port placement as detailed above; port ready for immediate use. Attending: ?Sebastián Villatoro MD ? I was present during the intraservice time as documented by the IR Nurse. Brian Vidales MD IMG IR ORDERABLES documented in this encounter Visit Diagnoses Diagnosis Adenocarcinoma of endometrium Malignant neoplasm of corpus uteri, except isthmus Adenocarcinoma of endometrium Malignant neoplasm of corpus uteri, except isthmus documented in this encounter Care Teams Strain Technician Relationship Specialty Start Date End Date Pk Trevizo MD [address] [place] [id number] PCP - General Emergency Medicine 05/02/21 documented as of this encounter
--- OUTSIDE RECORDS SUMMARY | 2024-04-14 12:56 | XMS_ITS | Encounter Summary ---
Author Organization [facility] [place] [address] Care Team Providers Care Machine Cementer And Folder Name Role Phone Pk Trevizo MD Primary Care Provider [phone] Encounter Details Date Type Department Care Team (Late st Contact Info) Description 12/05/2021 Telephone [place] [phone] Sarita Cyr LANGUAGE INSTRUCTOR [facility] DR OBSTETRICS & [place] [address] Social History Tobacco Use Types Packs/Day Years [...] encounter Miscellaneous Notes * Telephone Encounter - Sarita Cyr APRN - 12/05/2021 11:27 AM EDT Division of [place] [address] This was a planned check-in call with Geeta Sadler to assess how she is tolerating cycle 1 chemotherapy. She was treated with paclitaxel and carboplatin on 12/01/2021. Chemotherapy-Induced Nausea or Vomiting Adherent to antiemetic regimen? Yes Need for PRN antiemetics? No No CINV. Bowel Function Reports pain in stomach described as lower abdominal. Last BM about a week ago. Started Miralax last night. Advised her to obtain some Senna and start 2 tablets BID, and titrate up to 4 tablets BIDas needed. Education provided to maintain daily Miralax in an effort to prevent constipation. Myalgias/Arthralgias Reports myalgias and arthralgias which started a couple of days ago. Advised her to start loratadine 10 mg daily until her symptoms flavio. Peripheral Neuropathy Adherent to cryotherapy and supplement use? No In asking patient if she has the neuropathy mitigation supplements she stated she did not, and further, I don't even know what the hell I have. No one told me. This procedure writer stated I was present whenthis procedure writer and the pharmacist provided this information. Patient stated, That's a possibility because I can't even remember my name. This procedure writer asked if she has the chemo binder with her so the information can be re-taught. Binder is with her daughter Yvrose. Hypersensitivity reaction Education provided on the following pre-medication regimen prior to each cycle of subsequent chemo with paclitaxel. Prescriptions sent. Dexamethasone 20 mg the night before and the morning of chemo. Famotidine 20 mg the night before and the morning of chemo. Diphenhydramine 25 mg the night before and the morning of chemo. Any concerns or questions? Reports weakness and neck soreness. See above re myalgias. Patient gave verbal permission on the phone to contact her daughter Yvrose and go over the instructions within this note. Yvrose was called and the contents of this note were reviewed with her. Yvrose asked for instructions in an eDH message which will be provided. Sarita Cyr, MSN, LANGUAGE INSTRUCTOR, DIGITAL STRATEGY MANAGER-BC documented in this encounter Plan of Treatment Not on file documented as of this encounter Visit Diagnoses Diagnosis Hypersensitivity reaction, subsequent encounter documented in this encounter Care Teams Machine Cementer And Folder Relationship Specialty Start Date End Date Pk Trevizo MD [address] [place] [address] PCP - General Emergency Medicine 05/02/21 documented as of this encounter
--- OUTSIDE RECORDS SUMMARY | 2024-04-14 12:56 | XMS_ITS | Encounter Summary ---
Author Organization [facility] Address [facility] [place] [address] Care Team Providers Care Artificial Fly Tier Name Role Phone Pk Trevizo MD Primary Care Provider [phone] Reason for Visit * Reason Comments Follow-up Encounter Details Date Type Department Care Team (Late st Contact Info) Description 12/20/2021 10:40 AM EDT Procedure [place] [address] Justice Cole MD [facility] [place] [address] Pelvic mass Social History Tobacco Use Types Packs/Day Years [...] Sign Reading Time Taken Comments Blood Pressure 164/81 12/20/2021 10:50 AM EDT Pulse 91 12/20/2021 10:50 AM EDT Temperature - - Respiratory Rate - - Oxygen Saturation 98% 12/20/2021 10:50 AM EDT Inhaled Oxygen Concentration - - Weight - - Height - - Body Mass Index - - documented in this encounter Progress Notes * Justice Cole MD - 12/20/2021 10:40 AM EDT Patient Name: Geeta Sadler Date of Service: 12/20/2021 Primary Care Provider: Pk Trevizo MD Reason for Visit: Geeta Sadler is a 56 y.o. 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 I repaired the kidney and placed a Left stent She did well postoperatively, without urologic complication. She received her 1st chemo 12/01/2021. No problems related to stent. Voiding well. No blood. No dysuria, Unable to provide a urine for U/A Discussed Dr Vidales. OK to remove stent Examination: The abdomen is benign. The incisions are well healed. Labs: 10/20/2021 Cr 0.62 Xrays: None Cystoscopy 12/20/2021: Uncomplicated Left stent removal Imp: Renal Injury in pelvic kidney at time of hysterectomy, sp repair without obvious complication Plan: Stent removal Call if fevers/chills etc I will ask Dr Vidales to copy me when she has her next CT and I will review to make sure there are no urological issues. Justice Cole documented in this encounter Procedure Notes * Justice Cole MD - 12/20/2021 10:40 AM EDTAssociated Order(s): CYSTO, STENT REMOVAL Pre-Procedure Diagnose(s): Pelvic mass Procedure: Flexible Cystoscopy + Left stent removal Surgeon: Justice Cole Preoperative Diagnosis: History of repair of renal injury Left pelvic kidney Post Operative Diagnosis: Uncomplicated stent removal Complications: None Procedure: Urinalysis revealed no evidence of an active urinary tract infection. After informed consent was obtained and the external genitalia appropriately cleaned and draped, lidocaine was instilled into the urethra to achieve topical anaesthesia. The flexible telescope was inserted into the urethra and advanced into the bladder under direct vision. The bladder was systematically inspected through 360 degrees with the flexible telescope including retroversion. The anterior urethroscopy was normal. The ureteral orifices were in normal position and effluxed clear urine. A left stent was seen The bladder was normal. There were no bladder tumors, mucosal abnormalities or bladder stones. The stent was grasped and removed without difficulty. The cystoscope was removed. The patient tolerated the procedure without difficulty. There were no complications. Justice Cole documented in this encounter Plan of Treatment Not on file documented as of this encounter Procedures Procedure Name Priority Date/Time Associated Diagnosis Comments CYSTO, STENT REMOVAL Routine 12/20/2021 10:40 AM EDT Pelvic mass documented in this encounter Results * Cysto, Stent Removal, clinic (12/20/2021 10:40 AM EDT) Narrative Justice Cole MD - 12/20/2021 10:40 AM EDT Justice Cole MD ? 12/20/2021 11:29 AM Procedure: Flexible Cystoscopy + Left stent removal Surgeon: Justice Cole Preoperative Diagnosis: History of repair of renal injury Left pelvic kidney Post Operative Diagnosis: Uncomplicated stent removal Complications: None Procedure: Urinalysis revealed no evidence of an active urinary tract infection. After informed consent was obtained and the external genitalia appropriately cleaned and draped, lidocaine was instilled into the urethra to achieve topical anaesthesia. The flexible telescope was inserted into the urethra and advanced into the bladder under direct vision. The bladder was systematically inspected through 360 degrees with the flexible telescope including retroversion. The anterior urethroscopy was normal. The ureteral orifices were in normal position and effluxed clear urine. A left stent was seen The bladder was normal. There were no bladder tumors, mucosal abnormalities or bladder stones. The stent was grasped and removed without difficulty. The cystoscope was removed. The patient tolerated the procedure without difficulty. There were no complications. Justice Cole Justice Cole MD URO PROCEDURE W RFL ORDERABLES documented in this encounter Visit Diagnoses Diagnosis Pelvic mass Abdominal or pelvic swelling, mass or lump, unspecified site documented in this encounter Care Teams Artificial Fly Tier Relationship Specialty Start Date End Date Pk Trevizo MD [address] [place] [id number] PCP - General Emergency Medicine 05/02/21 documented as of this encounter
--- OUTSIDE RECORDS SUMMARY | 2024-04-14 12:56 | XMS_ITS | Encounter Summary ---
Author Organization [facility] [place] [address] Care Team Providers Care Director Of Marketing Communications Name Role Phone Pk Trevizo MD Primary Care Provider Encounter Details Date Type Department Care Team (Late st Contact Info) Description 11/29/2021 Orders Only [place] [address] Brian Vidales MD [facility] [address] [place] [address] Social History Tobacco Use Types Packs/Day Years [...] on filedocumented in this encounter Care Teams Director Of Marketing Communications Relationship Specialty Start Date End Date Pk Trevizo MD [address] [place] [address] PCP - General Emergency Medicine 05/02/21 documented as of this encounter
--- OUTSIDE RECORDS SUMMARY | 2024-04-14 12:56 | XMS_ITS | Encounter Summary ---
[place] [address] Care Team Providers Care Forensic Artist Name Role Phone Pk Trevizo MD Primary Care Provider [phone] Reason for Visit * Reason Onset Date Comments Prior Authorization 11/08/2021 Molecular ca ncer testing CPT 60676 is a covered benefit and does not require authorization. Encounter Details Date Type Department Care Team (Late st Contact Info) Description 11/08/2021 Telephone [place] [address] Su Pinedo Prior Authorization (Molecular cancer testing CPT 05389 is a covered benefit and does not require authorization.) Social History Tobacco Use Types Packs/Day Years [...] encounter Miscellaneous Notes * Telephone Encounter - Su Pinedo - 11/08/2021 10:44 AM EDT Molecular cancer testing: CPT 54009 is a covered benefit and does not require authorization: I received an e-mail from [employer] in [employer] ([employer] 11/07/2021) requesting coverage review for CPT 74701 which is to be done on the patient???s endometrial cancer tissueobtained on 10/17/2021, provider is Brian Vidales MD. I will e-mail Zulema to let her know of approved coverage. documented in this encounter Plan of Treatment Not on file documented as of this encounter Visit Diagnoses Not on filedocumented in this encounter Care Teams Forensic Artist Relationship Specialty Start Date End Date Pk Trevizo MD [address] [place] [address] PCP - General Emergency Medicine 05/02/21 documented as of this encounter
--- OUTSIDE RECORDS SUMMARY | 2024-04-14 12:56 | XMS_ITS | Encounter Summary ---
Author Organization [facility] Address [place] [address] Care Team Providers Care Histology Technician Name Role Phone Pk Trevizo MD Primary Care Provider [phone] Reason for Visit * Consultation (Routine) - Closed Specialty Diagnoses / Procedures Referred By Kit saravia Referred To Contact Hematology and Oncology Diagnoses Adenocarcinoma of endometrium Type 2 diabetes mellitus with diabetic neuropathy, unspecified whether mcfp insulin use Cerebrovascular accident (CVA), unspecified mechanism Sarita Cyr, CFA [facility] [place] [address] [facility] [address] [place] [address] Referral ID Status Reason Start Date Expiration Date V isits Requested Visits Authorized [id number] Closed Continuity of Care 11/29/2021 11/29/2022 1 1 Encounter Details Date Type Department Care Team (Late st Contact Info) Description 12/04/2021 9:00 AM EDT Telephone Hematology [place] [address] Paulina Moran, SOURAV [facility] [place] [address] Social History Tobacco Use Types Packs/Day Years [...] encounter Miscellaneous Notes * Telephone Encounter - Paulina Moran RD - 12/04/2021 9:48 AM EDT Oncology Nutrition Telephone Note Geeta Sadler is a 56 y.o. year old female who was contacted today to address nutrition related concerns. She was referred by Sarita Stanley APRN for recently diagnosed diabetes management and possible chemo side effects. Interview: Pt denies any food concerns or questions. States her daughter is diabetic and gives her the help and support she needs. Voices no concerns about food related side effects of cancer treatment. She did receive diabetes education while in the hospital for surgery. Active Ambulatory Problems Diagnosis Date Noted ??? Hypertension ??? Obesity ??? Abnormal vaginal bleeding with endometrial thickness greater than 5 mm present on transvaginal ultrasound in postmenopausal patient ??? Stenosis of right carotid artery greater than 50% 09/15/2021 ??? Adenocarcinoma of endometrium 09/20/2021 ??? Cigarette smoker 09/28/2021 ??? Post-operative state 10/17/2021 ??? Stroke 11/24/2021 ??? Diabetes 10/17/2021 ??? Tobacco use disorder 11/24/2021 Resolved Ambulatory Problems Diagnosis Date Noted ??? No Resolved Ambulatory Problems No Additional Past Medical History Social Hx: single with a grown daughter nearby; lives in [facility]; unemployed Assessment: Estimated needs are [id number] kcal and 85 g protein; did not want to engage in lengthy food discussion or voice questions/concerns about diet. [place] that education while in-patient and support from daughter is providing what she currently needs. No issues with chemo thus far (started last week). Intervention/Plan: ?? Encouraged adequate and healthy eating. Monitor blood sugar and reach out for med or food adjustments prn ?? Message sent via Xinguodu with contact information documented in this encounter Plan of Treatment Not on file documented as of this encounter Visit Diagnoses Not on filedocumented in this encounter Care Teams Histology Technician Relationship Specialty Start Date End Date Pk Trevizo MD [address] [place] [address] PCP - General Emergency Medicine 05/02/21 documented as of this encounter
--- OUTSIDE RECORDS SUMMARY | 2024-04-14 12:56 | XMS_ITS | Encounter Summary ---
Author Organization [facility] Address [facility] [place] [address] Care Team Providers Care Fish Agent Name Role Phone Pk Trevizo MD Primary Care Provider Reason for Visit * Treatment/Therapy Plan Authorization (Routine) - Closed Specialty Diagnoses / Procedures Referred By Contac t Referred To Contact Gynecology Oncology Diagnoses Adenocarcinoma of endometrium Procedures TC PALONOSETRON HCL, 25MCG, INJECTION (ALOXI) TC APREPITANT, 1 MG, INJECTION TC PACLITAXEL, 1MG, INJ TC CARBOPLATIN, 50MG, INJECTION (PARAPLATIN) Brian Vidales MD [facility] [place] [address] [facility] [address] [place] [address] Referral ID Status Reason Start Date Expiration Date Visits Re quested Visits Authorized [id number] Closed 11/21/2021 11/21/2022 99 99 Encounter Details Date Type Department Care Team (Latest Contact Info) Description 12/01/2021 8:00 AM EDT - 12/01/2021 11:59 PM EDT Hospital Encounter [place]ematology [place] [address] Adenocarcinoma of endometrium Discharge Disposition: [...] Sign Reading Time Taken Comments Blood Pressure 131/80 12/01/2021 11:09 AM EDT Pulse 90 12/01/2021 11:09 AM EDT Temperature 36.4 ??C (97.5 ??F) 12/01/2021 10:39 AM E DT Respiratory Rate 16 12/01/2021 11:09 AM EDT Oxygen Saturation 94% 12/01/2021 11:09 AM EDT Inhaled Oxygen Concentration - - [...] Chewable Take 81 mg by mouth daily. metFORMIN (Glucophage) 500 mg Tablet Take 500 [...] as of this encounter Progress Notes * Vandana Coffman RN - 12/01/2021 9:29 AM EDT Patient Name: Geeta Sadler Patient Age: 56 y.o. Birthdate: 1965 Admit date: 12/01/2021 Attending Physician: No att. providers found Geeta Sadler, 56 y.o. female with diagnosis of Ovarian CA is here for chemotherapy infusion of Taxol and Carboplatin. CYCLE: 1 DAY: 1 S: Pt. offers no complaints at this time. O: Chemotherapy orders independently verified for correct drug name, route and dosage per patient'sheight, weight and BSA by Vandana Coffman RN and onsite pharmacist REACTIONS (DESCRIPTION, TIME, INTERVENTION AND EFFECTIVENESS) Yes Initially started Taxol @ 1/2 rate for 20 minutes tollerated fine, increased to ordered rate, win a few minutes c/o unable to catch her breath, little bit of chest pressure and lower abdominal pain. Taxol turned off (received 53.6) normal saline wide open, HSR used. Sats on RA went down to 84%-87% albuterol tx given. After extra treatment given states feels much better Sarita Cyr APRN came to infusion room to see Geeta. Orders to wait 1/2 hr than restart at 1/2 rate if tolerated increase to ordered rate. Tollerated well increased to ordered rate, no issues noted throughout her remaining infusion. A: Pt. Tolerated treatment well. Geeta Sadler confirms that all questions and issues have been addressed. P: Return to clinic as scheduled. Pt. chemo teaching instructions included: During clinic hours (8am-5pm Saturday-Saturday): pt. can call [phone] with questions or concerns. After clinic hours (5pm-8am Saturday-Saturday and weekends) pt can call [phone] and ask for the engraver pantograph/oncologist stone setter. Geeta verbalized understanding of potential chemotherapy side effects and home care including but not limited to- handwashing to prevent infection, signs and symptoms of low blood counts (fever, fatigue, bleeding), to call with a fever of 100.4 or greater, any significant constipation/diarrhea, importance of nutrition and fluid intake (drinking at least 32-64 ounces of non-caffeinated beverages/da y), mouth care. Geeta verbalized understanding of how to take prescription [...] MAR Action Action Date Dose Rate Site albuteroL (Proventil) nebulizer solution 2.5 mg 2.5 mg, Nebulization, EVERY 15 MIN, 2 doses, First dose on Sat12/01/21 at 1100, Last dose on Sat12/01/21 at 1115, As needed for dyspnea or wheezing., Routine Given 12/01/2021 11:22 AM EDT 2.5 mg aprepitant (CINVANTI) injection Emul 130 mg 130 mg, Intravenous, Administer over 2 Minutes, ONCE, 1 dose, On Sat12/01/21 at 0830, Alternative administration of IV push over 2 minutes is a recommendation from the flight attendant ramp. Administer prior to chemotherapy., Routine Given 12/01/2021 8:57 AM EDT 130 mg CARBOplatin (Paraplatin) 750 mg in dextrose 5% 325 mL infusion 750 mg (rounded from 749.5 mg, Target AUC = 5), Intravenous, ONCE, 1 dose, On Sat12/01/21 at 1230, Administer over 30 Minutes, Warning Vesicant/Irritant Medication New Bag 12/01/2021 2:49 PM EDT 750 mg 650 mL/hr dexamethasone (Decadron) 20 mg in sodium chloride 0.9% 50 mL infusion 20 mg, Intravenous, ONCE, 1 dose, On Sat12/01/21 at 0830, Administer over 10 Minutes, Administer 30 minutes prior to PACLitaxel New Bag 12/01/2021 9:05 AM EDT 20 mg 300 mL/hr dexamethasone (Decadron) injection 4 mg 4 mg, Intravenous, ONCE, 1 dose, On Sat12/01/21 at 1100 Given 12/01/2021 11:19 AM EDT 4 mg diphenhydrAMINE (Benadryl) (50 mg/mL) injection 25 mg 25 mg, Intravenous, ONCE, 1 dose, On Sat12/01/21 at 0830, Administer 30 minutes prior to PACLitaxel, Routine Given 12/01/2021 8:52 AM EDT 25 mg diphenhydrAMINE (Benadryl) (50 mg/mL) injection 25 mg 25 mg, Intravenous, ONCE PRN, 2 doses, Starting on Sat12/01/21 at 1043, Until Sat12/02/21 at 0433, Itching, for itching, hives and flushing., IV push over 1 minute once. May repeat once after 10 minutes., Routine Given 12/01/2021 11:12 AM EDT 25 mg famotidine (Pepcid) (10 mg/mL) injection 20 mg 20 mg, Intravenous, ONCE, 1 dose, On Sat12/01/21 at 0830, Administer 30 minutes prior to PACLitaxel Given 12/01/2021 8:50 AM EDT 20 mg famotidine (Pepcid) (10 mg/mL) injection 20 mg 20 mg, Intravenous, ONCE, 1 dose, On Sat12/01/21 at 1100, IV push over 1 minute once., Routine Given 12/01/2021 11:15 AM EDT 20 mg LORazepam (Ativan) tablet 0.5 mg 0.5 mg, Oral, EVERY 30 MIN PRN, Starting on Sat12/01/21 at 0810, Until 12/02/21 at 0433, Anxiety, Nausea, Vomiting, max prn dose is 2 mg every 6 hours., If multiple antiemetics are ordered, use in the following sequence: Ondansetron>Prochlorperazi ne or Promethazine>LORazepam>Met oclopramide, Routine Given 12/01/2021 8:48 AM EDT 0.5 mg PACLitaxeL (Taxol) 378 mg in dextrose 5% Non-PVC 563 mL infusion 378 mg (175 mg/m2/dose ? 2.16 m2 Treatment Plan BSA from Recorded weight), Intravenous, ONCE, 1 dose, On Sat12/01/21 at 0930, Administer over 3 Hours, Warning Vesicant/Irritant Medication Rate/Dose Change 12/01/2021 11:52 AM EDT 187.7 mL/hr Restarted 12/01/2021 11:29 AM EDT 187.7 mL/hr Rate/Dose Change 12/01/2021 11:00 AM EDT 187.7 mL/hr palonosetron (Aloxi) (0.05 mg/mL) injection 0.25 mg 0.25 mg, Intravenous, ONCE, 1 dose, On Sat12/01/21 at 0830, Administer over 30 seconds., Routine Given 12/01/2021 8:49 AM EDT 0.25 mg sodium chloride 0.9% infusion 500 mL, Intravenous, CONTINUOUS, Starting on Sat12/01/21 at 1100, Until 12/02/21 at 0433, Ensure patent IV access to keep vein open New Bag 12/01/2021 11:00 AM EDT 500 mLs documented in this encounter Care Teams Fish Agent Relationship Specialty Start Date End Date Pk Trevizo MD [address] [place] [address] PCP - General Emergency Medicine 05/02/21 documented as of this encounter
--- OUTSIDE RECORDS SUMMARY | 2024-04-14 12:56 | XMS_ITS | Encounter Summary ---
Author Organization [facility] [place] [address] Care Team Providers Care Aircraft Mechanic Structures Name Role Phone Pk Trevizo MD Primary Care Provider [phone] Encounter Details Date Type Department Care Team (Late st Contact Info) Description 11/29/2021 Telephone [place] [address] Tiana Benz, RN Social History Tobacco Use Types Packs/Day [...] on filedocumented in this encounter Care Teams Aircraft Mechanic Structures Relationship Specialty Start Date End Date Pk Trevizo MD [address] [place] [address] PCP - General Emergency Medicine 05/02/21 documented as of this encounter
--- OUTSIDE RECORDS SUMMARY | 2024-04-14 12:56 | XMS_ITS | Encounter Summary ---
Author Organization [facility] [place] [address] Care Team Providers Care Furnace Attendant Name Role Phone Pk Trevizo MD Primary Care Provider Encounter Details Date Type Department Care Team (Late st Contact Info) Description 11/21/2021 Orders Only [place] [address] Brian Vidales MD [facility] [place] [address] Social History Tobacco Use Types Packs/Day Years [...] on filedocumented in this encounter Care Teams Furnace Attendant Relationship Specialty Start Date End Date Pk Trevizo MD [address] [place] [address] PCP - General Emergency Medicine 05/02/21 documented as of this encounter
--- OUTSIDE RECORDS SUMMARY | 2024-04-14 12:56 | XMS_ITS | Encounter Summary ---
Author Organization [facility] [place] [address] Care Team Providers Care Director Public Name Role Phone Pk Trevizo MD Primary Care Provider [phone] Encounter Details Date Type Department Care Team (Late st Contact Info) Description 11/30/2021 Telephone [place] [address] Tiana Benz RN Social History Tobacco Use [...] Telephone Encounter - Tiana Benz RN - 11/30/2021 4:08 PM EDT Reviewed patient's labs. Called and informed her that they are within treatment parameters. Patientverbalized understanding. Denies any further questions at this time. documented in this encounter Plan of Treatment Not on file documented as of this encounter Visit Diagnoses Not on filedocumented in this encounter Care Teams Director Public Relationship Specialty Start Date End Date Pk Trevizo MD [address] [place] [address] PCP - General Emergency Medicine 05/02/21 documented as of this encounter
--- OUTSIDE RECORDS SUMMARY | 2024-04-14 12:56 | XMS_ITS | Encounter Summary ---
[place] [address] Care Team Providers Care Research And Development Technician Name Role Phone Pk Trevizo MD Primary Care Provider [phone] Reason for Referral * Consultation (Routine) - Closed Specialty Diagnoses / Procedures Referred By Contac t Referred To Contact Hematology and Oncology Diagnoses Adenocarcinoma of endometrium Type 2 diabetes mellitus with diabetic neuropathy, unspecified whether [place] insulin use Cerebrovascular accident (CVA), unspecified mechanism Sarita Cry APRN [facility] [place] [address] [facility] Onc [address] [place] [phone] Referral ID Status Reason Start Date Expiration Date V isits Requested Visits Authorized [id number] Closed Continuity of Care 11/29/2021 11/29/2022 1 1 * Consultation (Routine) - Closed Specialty Diagnoses / Procedures Referred By Contac t Referred To Contact Care Management Diagnoses Adenocarcinoma of endometrium Sarita Cyr APRN [facility] [place] [address] Senia Meyer MSW Referral ID Status Reason Start Date Expiration Date V isits Requested Visits Authorized [id number] Closed Consult, Test & Treat 11/29/2021 11/29/2022 1 1 Encounter Details Date Type Department Care Team (Latest Contact Info) Description 11/24/2021 11:00 AM EDT Office Visit [place] [address] Sarita Cyr APRN [facility]STET[facility] [place] [address] Adenocarcinoma of endometrium; Cigarette smoker; Chemotherapy induced nausea and vomiting; Type 2 diabetes mellitus with diabetic neuropathy, unspecified whether operator technician insulin use; At risk for peripheral neuropathy; Cerebrovascular accident (CVA), unspecified mechanism Social History Tobacco Use Types Packs/Day Years [...] as of this encounter Progress Notes * Sarita Cyr APRN - 11/24/2021 11:00 AM EDT Division of [place] [address] Reason for Visit: Chemotherapy Education Established Patient This was a joint visit with Vanessa Stoddard [facility]. Patient presented for her appointment ~ 14 minutes past her scheduled appointment, and it was ~ 20 minutes past her scheduled appointment when she arrived to the clinic. The pharmacist was scheduled to meet with her in ~ 10 minutes, so we jointly made the decision to proceed with this education visit together. Patient arrived with her daughter and grand-daughter. The grand-daughter was reported to be unvaccinated and thereby was not allowed to join the visit. The grand-daughter is ~ in 1st grade, so the daughter chose to stay in the waiting room with her. This lyric writer offered to re-schedule the visit and/or reschedule to a tele-health so her daughter could be in the room, and the patient declined, stating, let's get the show on the road. HPI: On 10/17/2021, she underwent a total laparoscopic/robotic [...] to her kidney function, nor any leak. ?? Intraoperative findings with respect to gynecology or as follows: Laparoscopy: ??Normal upper abdomen. ??The inferior portion of the omentum was densely adherent to the uterus, where there were tumor implants on the anterior lower uterine segment suggestive of full-thickness invasion of the tumor through the uterus with peritoneal spread. ??Similarly, the posterior aspect of the uterus was involved with colon with dense adhesions of the sigmoid colon. ??The ovaries were adherent but otherwise grossly normal. ??Several enlarged right pelvic lymph nodes were seen and excised. The uterus was extremely large and involved with tumor, and was withdrawn in a piecemeal fashion through the vagina well-contained in an Endo Catch bag. There was a left pelvic kidney, overlying the left pelvic sidewall and external iliac vessels, which is seen some injury to the veins of the hilum during manipulation. ??Initially, it was thought that this might represent an aneurysm of the left external iliac artery, but vascular surgery verified,after laparotomy, that it was a low-lying left pelvic kidney. ??This was subsequently repaired by the urology service Pathology: 10/18/2021 Molecular Genetics RESULTS MLH1 Promoter [...] excision: One lymph node, positive for malignancy (07/01) - Largest zoila deposit: 0.4 cm - Extra zoila extension: not identified Electronically signed by: Marcy Raza MD Verified: 11/01/2021 16:02 Pathologist Performed at: -[facility] Dept. of Pathology, [place], [place] SYNOPTIC Specimen Procedure: Total hysterectomy and [...] Nodes with Macrometastasis: 1 Number of Pelvic [place]ppen[place] Nodes with Macrometastasis: 0 Total Number of Pelvic Nodes with Micrometastasis: 0 Number of Pelvic [place] Nodes with Micrometastasis: 0 Laterality of Pelvic Node(s) with Tumor: Left non-sentinel Size of Largest Pelvic Zoila Metastatic Deposit: 4 mm Lymph Nodes Examined Total Number of Pelvic Nodes Examined: 3 Number of Pelvic [place] Nodes Examined: 3 Total Number of Para-aortic Nodes Examined: 0 Distant Metastasis Distant Site(s) Involved: Omentum - focally present in omental adhesion Pathologic Stage Classification (pTNM, AJCC 8th Edition) pT Category: pT3a pN Category: pN1a FIGO Stage FIGO Stage: IIIC1 Additional Findings Additional Findings: None identified Tumor Block(s): [address] May 2021 Release Recommendation has been made for adjuvant chemotherapy with paclitaxel/carboplatin q 3 weeks with acurative intent. This regimen is scheduled to begin on 12/01/2021 [address]acy: [facility] [place] Labs: Every 3 weeks before chemo: CBC c Diff and CMP. Patient was informed these need to be obtained prior to coming to [facility] for chemo and advised to have them drawn 2-days prior to every cycleof chemo, to allow enough time for us to receive the results and notify her of the same. Lab ordersplaced and faxed. Central Venous Access Device: Mediport being placed today. Nutrition Assessment: Denies food insecurity. While the pharmacist was providing education on nutrition, patient made a statement about how she could have pudding, jello, and ice cream. Education provided unless these were sugar free, these would not be good food choices due to the carbohydrates in them and her concurrent diagnosis of DM. Inasking for most recent capillary glucose measurements results, she stated her glucose was 366 last night, and then stated it was because of [employer] and the diet soda. The diet soda is going to raise it. Education provided diet soda does not have carbohydrates in it. This lyric writer recommended a assembled wood products repairer referral and pt was agreeable to the same. Education also provided in lieu of dexamethasone for breakthrough nausea or vomiting, I would order olanzapine, explaining if her glucose is in theupper 300s during the day, I am concerned for the additional effect of hyperglycemia on her overallblood glucose. Patient stated, the 366 was in the evening. Pt earlier mentioned having [place] food; Education provided there is a lot of sodium in this and is not advisable with her known cardiovascular disease. Pt stated, ok, I'll be good. Patient asked if she can drink alcohol while having chemotherapy. The pharmacist advised against drinking alcohol during this time. Geeta then asked the pharmacist if patients don't follow the recommendations. In assessing alcohol use, pt stated she has not drank in a long time. Maybe a year ago. Never a big drinker. ...craving Kahlua. Financial Assessment: Difficult to ascertain the extent of financial instability at this time. Patient did say she learned today she will receive Social Security Disability which will help as she hasbeen out of a job and her unemployment ran out as there was no return date to resume work. Pt agreeable to a SALES REPRESENTATIVE MEATS referral. Psychosocial Assessment: Coping: Taking it day by day, that's all I can do. Support System: Family, primarily, her daughter. Anxiety: NESSA-2 Score: 2. Somewhat tangential thought processes/speech but able to be re-directed. Generalized Anxiety Disorder 2-item (NESSA-2) Over the last 2 weeks, how often have you been bothered by the following problems? 0 Not at all 1 Several days 2 More than half the days 3 Nearly every day 1.Feeling nervous, anxious or on edge 2.Not being able to stop or control worrying Depression: PHQ-2 Score: 1-2 Over the last 2 weeks, how often have you been bothered by the following problems? 0 Not at all 1 Several days 2 More than half the days 3 Nearly every day 1.Little interest or pleasure in doing things 0 2.Feeling down, depressed or hopeless 1-2 Sleep: Education provided on support services from psycho-oncology at [facility]. [facility] ([facility]) Patient and Family Support Program reviewed in detail with patient. Patient was informed all these services are free to the patient and family. The breadth of services were reviewed in detail. Will continue to monitor. She will reach out if she desires additional support. Toxicity education: (Pharmacy and this lyric writer provided education on the following): Myelosuppression: Education provided on neutropenia, anemia, and thrombocytopenia. Education provided on measures to mitigate risk of infection. Patient was instructed to monitor temperature twice daily and to call 24/7 if temp was >100.4 F. Signs and symptoms of infection, anemia, and thrombocytopenia were reviewed with the patient. Education provided on neutropenic and thrombocytopenic precautions. Education provided to call if she experiences hematuria, hematochezia or melena, epistaxis, petechiae/purpura, temp of 100.4 or greater 24/7, and any concerning symptoms. Patient verbalized understanding. Myalgias and arthralgias from taxane therapy: Patient was informed she can take loratadine 10 mg daily at the onset of myalgias and arthralgias. In addition, she was told she can take acetaminophen 1g every 6 hours scheduled alternating with ibuprofen 600 mg every 6 hours so she would be taking ananalgesic every 3 hours by alternating these medications. Patient was instructed to call the officeif this is not adequate in treating her pain. Neuropathy: Education provided on peripheral neuropathy as an expected adverse effect. Education provided on the following mitigation strategies and showed patient the written information in the chemo binder for specific dosing as a reference. Glutamine. 15g BID x 4 days following chemotherapy. Try to find a powder without other fillers inthe ingredient list. Vitamin B6 (Pyridoxine). 50 mg BID or 100 mg daily continuously while you are receiving paclitaxel (Taxol). If you are taking a multivitamin or B complex, check the amount of B6 so you are taking enough but not too much. Recommended dose is 100 mg daily. Tcntx-Uiaqui-Jdsk (ALA). Take 600 mg daily. In addition, education was provided on ice therapy for the hands and feet during infusion of paclitaxel. Means of doing this include the following options: brining ice packs with you; asking the infusion suite to provide ice sleeves which are reusable and can be filled with ice at the time of the infusion; Purchasing mitten and sock products which can be frozen and brought to the clinic with the patient. Reported ongoing neuropathy s/p her CVA in her Left hand. Chemotherapy-Induced nausea and vomiting (CINV): Education provided the goal is to prevent chemotherapy-induced nausea and vomiting. I reviewed anti-emetic regimen dosing, frequency and side effects.She will call if she does not have good symptom control. Prochloperazine (Compazine) 10 mg every 6-hours for 3 days after chemotherapy scheduled, then 10 mgevery 6-hours as needed for nausea or vomiting. Olanzapine (Zyprexa) 5 mg at HS days 1 through 4 of each cycle. Ondansetron (Zofran). 8 mg every 8-hours as needed for nausea. Do NOT take for 3 days if you received palonsetron (Aloxi) with chemotherapy. Patient expressed a lot of concern she will have CINV. Alopecia: Discussion was had about the anticipation of alopecia to commence ~ 2- 3 weeks after the initiation of chemotherapy. Options of management were discussed to include a cranial prosthesis, scarves, tourbans, and hats. Education provided it is critical to protect the scalp from the elements in cluding the sun and cold. Education provided on the resources in the chemo packet for management ofalopecia for both [place]. Patient no longer has private commercial insurance forpossible reimbursement for a cranial prosthesis. The TLC Catalog from the [employer] was provided to patient during the visit. Constipation: Education was provided some of the antiemetics cause constipation and she will need to jump start her bowel regime to avoid constipation. Education provided to call if it has been 48-hours without a stool. Education provided to increase fluid intake, movement to help with bowels. Education to slowly increase fiber intake. Nutrition: A book of recipes for patients undergoing cancer treatments was given to Geeta. ?? Strategies for improving appetite and preventing further weight loss were discussed. Such strategies included the following: ?? Referral to board of education secretary. ?? Choosing high calorie, high protein foods. Gave patient a list of such foods, including recipes. ?? Eating 5-6 small meals each day rather than 3 big meals. Discussed that patient should eat what appeals to him/her, and that the largest meal of the day should be eaten when he/she is hungriest, even if this is breakfast time. ?? Keeping snacks nearby, especially if away from home. Peanut butter crackers, cheese, pudding, nuts, granola bars, and dried fruit were some ideas that were given. Eating a bedtime snack was discussed as a way to give extra calories without affecting a patient???s appetite for the next meal. ?? Drinking most liquids between meals, rather than with meals. Discussed high- calorie, high-protein beverages like canned liquid supplements such as Ensure, Boost, etc. ?? Education provided [place] Instant Breakfast is a much cheaper way to provide liquid supplementation that provides calories and nutrition. She was instructed she can add fruit, protein powder, and flavorings to it to increase calories and protein, as well as enhance taste. Fatigue: Discussion that best evidence for improvement in fatigue is exercise and physical activity. At least 20 minutes a day, at least 5 days a week. Best to incorporate both light aerobic (light sweat) and strength training. Energy conservation and activity management also reviewed. Planning, delegating, setting priorities, pacing, resting and planning high energy-use activities at times of peak energy were encouraged. Education provided that cancer related fatigue is a distressing, persistent, subjective sense of physical, emotional, and/or cognitive tiredness or exhaustion related to cancer or cancer treatment that is not proportional to recent activity and interferes with usual functioning. This is a common issue for individuals undergoing cancer treatment and for cancer survivors sometimes for months and years following diagnosis and treatment. The time course of fatigue is unique to each person. In most cases mild to moderate fatigue will resolve within a year. If it persists longer than this time or if fatigue worsens discuss this issue with your cancer team for further evaluation. Education provided fatigue is multifactorial. Mucositis/Diarrhea: Education provided on oral hygiene and to avoid alcohol based mouth care products. Education provided on management of mouth sores if they were to occur. Patient informed we can send in a prescription for Magic Mouthwash if needed. Education also provided on use of warm salt water oral rinses. Patient instructed to call if she has diarrhea and is unable to maintain adequate hydration. Pain: Discuss any problems with persistent pain with your cancer team. Education provided on the use of topical EMLA cream on her port before access. COVID-19 Immunizations: Booster at pathology tech office ~ 2 months ago. Daughter will check with MD office to see when Geeta can have her 4th dose. Follow-up Calls after Cycles 1 and 2: She was informed this lyric writer will call patient in the week after her 1st and 2nd cycles of chemotherapy, but was advised to call at any time with any questions or concerns. Consideration of smoking cessation was encouraged. Sarita Cyr, MSN, SUPERVISOR FRONT, RADIATION PROTECTION SPECIALIST-BC 65 minutes of this 65 minute visit were spent in face to face assessment, education, and coordination of care from 11:20 - 12:25. * Tiana Benz RN - 11/24/2021 11:00 AM EDT Called [facility] in [facility] and canceled the dexamethasone 4 mg tablet prescription per Sarita Cyr APRN, request. documented in this encounter Plan of Treatment Scheduled Referrals Name Type Priority Associated Diagnoses Orde r Schedule Referral to Care / Case Management Outpatient Referral Routine Adenocarcinoma of endometrium Ordered: 11/29/2021 Referral to Nutrition Services Outpatient Referral Routine Adenocarcinoma of endometrium Type 2 diabetes mellitus with diabetic neuropathy, unspecified whether operator technician insulin use Cerebrovascular accident (CVA), unspecified mechanism Ordered: 11/29/2021 documented as of this encounter Visit Diagnoses Diagnosis Adenocarcinoma of endometrium Malignant neoplasm of corpus uteri, except isthmus Cigarette smoker Tobacco use disorder Chemotherapy induced nausea and vomiting Nausea with vomiting Type 2 diabetes mellitus with diabetic neuropathy, unspecified whether operator technician insulin use At risk for peripheral neuropathy Cerebrovascular accident (CVA), unspecified mechanism documented in this encounter Care Teams Research And Development Technician Relationship Specialty Start Date End Date Pk Trevizo MD [address] [place] [address] PCP - General Emergency Medicine 05/02/21 documented as of this encounter
--- OUTSIDE RECORDS SUMMARY | 2024-04-14 12:56 | XMS_ITS | Encounter Summary ---
[facility] Organization [facility] [place] [address] Care Team Providers Care Real Estate Services Administrator Name Role Phone Pk Trevizo MD Primary Care Provider [phone] Encounter Details Date Type Department Care Team (Late st Contact Info) Description 11/14/2021 Notes [place] [address] Jraed Broussard, [facility] [place] [address] Social History Tobacco Use Types Packs/Day Years [...] as of this encounter H&P Notes * Jared Broussard, - 11/14/2021 8:48 AM EDT Images from the original note were not included. INTERVENTIONAL RADIOLOGY FOCUSED H&P and PRE-PROCEDURE NOTE: PCP: Pk Trevizo MD Referring Provider: Leslye Bass Planned Procedure: Planned procedure: Chest Port - Single Lumen Placement Procedure Indication: Endometrial Adenocarcinoma. Plan for Systemic Therapy. Need for durable, long-term venous access for chemotherapy. Procedure Request: Procedure request received through the Interventional Radiology eDH order queue. Presenting Diagnosis/ Complaint: Geeta Sadler is a 56 y.o. female presenting to IR for chest port - single lumen placement. Past medical history is significant for cigarette smoker, HTN, obesity and new diagnosis of endometrial adenocarcinoma status post total laparoscopic/robotic hysterectomy,BSO, omental biopsy, sentinel lymph node mapping and biopsy. Now with plan for systemic therapy. Need for durable, long-term venous access for chemotherapy. IR History: None at [facility]. Antiplatelets: Aspirin 81 mg daily. Anticoagulants: None. Recent Laboratories: ??? Platelets: 324 on 10/20/21. ??? INR: None. ??? Creatinine: 0.62 on 10/20/21. ??? Getting Laboratories Before Procedure: No. Allergies: None. Past Medical/Surgical History: Patient Active Problem List Diagnosis Code ??? Hypertension I10 ??? Obesity E66.9 ??? Abnormal vaginal bleeding with endometrial thickness greater than 5 mm present on transvaginal ultrasound in postmenopausal patient N95.0, R93.89 ??? Stenosis of right carotid artery greater than 50% I65.21 ??? Adenocarcinoma of endometrium C54.1 ??? Cigarette smoker F17.210 ??? Post-operative state Z98.890 Past Medical History: Diagnosis Date ??? Abnormal vaginal bleeding with endometrial thickness greater than 5 mm present on transvaginal ultrasound in postmenopausal patient ??? Diabetes 10/17/2021 ??? Hypertension ??? Obesity ??? Stroke ??? Tobacco use disorder Past Surgical History: Procedure Laterality Date ??? PRO CYSTOURETHROSCOPY, URETER CATHETER N/A 10/17/2021 CYSTO, RETROGRADE, URETEROPYELOGRAPHY (WRVU 2.37) performed by Justice Cole MD at [facility] OR ??? PRO EXPLORATORY OF ABDOMEN N/A 10/17/2021 @EXPLORATORY LAPAROTOMY, WITH/WITHOUT BIOPSY(S) (WRVU 12.54) performed by Jared Kiser MD at [facility] OR ??? PRO INCISE BLADDER, +URETER CATH Left 10/17/2021 CYSTOTOMY WITH INSERTION OF URETERAL STENT\CATHETER (WRVU 7.81) performed by Justice Cole MD at [facility] OR ??? PRO INTRAOP SENTINEL LYMPH ID W/DYE INJECTION N/A 10/17/2021 INTRAOPERATIVE ID (MAPPING) SENTINEL LYMPH NODE,INCLUDES INJECTION (WRVU 2.5) performed by Brian Vidales MD at [facility] OR ??? PRO LAP, PELVIC LYMPHADENECTOMY/BX N/A 10/17/2021 LAPAROSCOPY,W\BILATERAL TOTAL PELVIC LYMPHADENECTOMY, PERIAORTIC LYMPH NODE SAMPLING, ROBOTIC (WRVU15.6) performed by Brian Vidales MD at [facility] OR ? ? PRO LAPAROSCOPY W TOT HYSTERECTUTERUS <=250 GRAM W TUBE/OVARY N/A 10/17/2021 LAPAROSCOPY,TOTAL HYST, UTERUS<250GM, REM TUBE &/OR OVARY, ROBOTIC ASSIST (WRVU 15) performed by Brian Vidales MD at [facility] OR ??? PRO REPAIR OF KIDNEY WOUND 10/17/2021 @NEPHRORRHAPHY, SUTURE KIDNEY WOUND OR INJURY (WRVU 21.22) performed by Justice Cole MD at [facility] OR ??? PRO THROMBOENDARTECTMY NECK, NECK INCIS Right 09/15/2021 @ENDARTERECTOMY, CAROTID, VERTEBRAL,SUBCLAVIAN W\WO PATCH GRAFT (WRVU 21.16) performed by Mickey Magallon MD at [facility] OR Medications: Current Outpatient Medications on File Prior to Visit Medication Sig Dispense Refill ??? acetaminophen (Tylenol) 325 mg Tablet Take 2 tablets by mouth every 6 hours as needed for Pain.30 tablet 0 ??? ibuprofen (Advil) 600 mg Tablet Take 1 tablet by mouth every 6 hours as needed for Pain. 40 tablet 3 ??? oxyCODONE (Roxicodone) 5 mg Tablet Take 1 tablet by mouth every 4 hours as needed for Pain. (Patient not taking: Reported on 11/13/2021) 10 tablet 0 ??? polyethylene glycoL (Miralax) 17 gram Powder in Packet Take 17 g by mouth daily as needed. (Patient not taking: Reported on 11/13/2021) 14 each 2 ??? OneTouch Verio test strips Strip 1 each by Other route 3 times daily. Use as instructed Indications: diabetes mellitus 300 each 3 ??? OneTouch Delica Lancets 30 gauge Misc 1 each by Other route 3 times daily. Indications: diabetes mellitus 300 each 3 ??? nicotine (Nicoderm CQ) 21 mg/24 hr Patch 24 hr Change 1 patch on the skin daily. (Patient not taking: Reported on 11/13/2021) 28 patch 0 ??? atorvastatin (Lipitor) 80 mg Tablet Take 1 tablet by mouth every evening. 90 tablet 3 ??? aspirin 81 mg Tablet, Chewable Take 81 mg by mouth daily. ??? nicotine (Nicotrol) 10 mg Cartridge Inhale into the lungs. No current facility-administered medications on file prior to visit. Allergies: Patient has no known allergies. Social History and Habits: Social History Socioeconomic History ??? Marital status: Single Spouse name: Not on file ??? Number of children: Not on file ??? Years of education: Not on file ??? Highest education level: Not on file Occupational History ??? Not on file Tobacco Use ??? Smoking status: Current Every Day Smoker Packs/day: 1.00 Years: 20.00 Pack years: 20.00 ??? Smokeless tobacco: Never Used ??? Tobacco comment: varies to about 1-1.5 packs per day Vaping Use ??? Vaping Use: Never used Substance and Sexual Activity ??? Alcohol use: Never ??? Drug use: Never ??? Sexual activity: Not on file Other Topics Concern ??? Not on file Social History Narrative ??? Not on file Social Determinants of Health Financial Resource Strain: Not on file Food Insecurity: Not on file Transportation Needs: Not on file Physical Activity: Not on file Housing Stability: Not on file Significant Family History: No family history on file. Pertinent ROS: as per HPI Labs: Lab Results Component Value Date WBC 14.4 (H) 10/20/2021 HCT 26.0 (L) 10/20/2021 PLATELET 324 10/20/2021 BUN 13 10/20/2021 CREATININE 0.62 (L) 10/20/2021 ALKPHOS 46 09/28/2021 AST 13 09/28/2021 ALBUMIN 4.1 09/28/2021 BILITOT 0.3 09/28/2021 ALT 16 09/28/2021 PROT 6.7 09/28/2021 K 4.3 10/20/2021 Imaging: Physical Exam: Pending (to be performed in angio the day of procedure) ASA: Pending (to be assessed in angio the day of procedure) Mallampati Class: Pending (to be assessed in angio the day of procedure) Assessment: 56 y.o. female presenting to IR for chest port - single lumen placement. Past medical history is significant for cigarette smoker, HTN, obesity and new diagnosis of endometrial adenocarcinoma status post total laparoscopic/robotic hysterectomy, BSO, omental biopsy, sentinel lymph node ma pping and biopsy. Now with plan for systemic therapy. Need for durable, long- term venous access forchemotherapy. Plan: Planned procedure: Chest Port - Single Lumen Placement Labs to be performed day of procedure: No labs Sedation: Moderate (Conscious sedation) Prophylactic antibiotic : None Contrast: No contrast Additional medications for procedure: Lidocaine Planned access site: Right IJ Position: Supine Consent: Pending Medications to discontinue (and days held): None Case Urgency:: G- Other (non E or F elective cases) 11/14/2021 documented in this encounter Plan of Treatment Not on file documented as of this encounter Visit Diagnoses Not on filedocumented in this encounter Care Teams Real Estate Services Administrator Relationship Specialty Start Date End Date Pk Trevizo MD [address] [place] [address] PCP - General Emergency Medicine 05/02/21 documented as of this encounter
--- OUTSIDE RECORDS SUMMARY | 2024-04-14 12:56 | XMS_ITS | Encounter Summary ---
Author Organization [facility] [place] [address] Care Team Providers Care Cardiovascular Surgical Tech Name Role Phone Pk Trevizo MD Primary Care Provider [phone] Reason for Visit * Reason Comments Post Hospital Discharge Encounter Details Date Type Department Care Team (Latest Contact Info) Description 11/13/2021 1:00 PM EDT Office Visit [place] [id number] Brian Vidales MD [facility] [place] [address] Adenocarcinoma of endometrium Social History Tobacco Use [...] Sign Reading Time Taken Comments Blood Pressure 149/75 11/13/2021 1:09 PM EDT Pulse 82 11/13/2021 1:09 PM EDT Temperature 36.8 ??C (98.2 ??F) 11/13/2021 1:09 PM ED T Respiratory Rate 24 11/13/2021 1:09 PM EDT Oxygen Saturation 98% 11/13/2021 1:09 PM EDT Inhaled Oxygen Concentration - - Weight 102 kg (224 lb 13.9 oz) 11/13/2021 1:09 P M EDT Height 165.1 cm (5' 5) 11/13/2021 1:09 PM EDT Body Mass Index 37.42 11/13/2021 1:09 PM EDT documented in this encounter Progress Notes * Brian Vidales MD - 11/13/2021 1:00 PM EDT Division [place] [address] Gynecologic Oncology-Clinic Note Reason for visit: Postop, review pathology results, postoperative course, discuss treatment recommendations for her endometrial cancer. Patient Active Problem List Diagnosis Code ??? Hypertension I10 ??? Obesity E66.9 ??? Abnormal vaginal bleeding with endometrial thickness greater than 5 mm present on transvaginal ultrasound in postmenopausal patient N95.0, R93.89 ??? Stenosis of right carotid artery greater than 50% I65.21 ??? Adenocarcinoma of endometrium C54.1 ??? Cigarette smoker F17.210 ??? Post-operative state Z98.890 Prior to Admission medications Medication Sig Start [...] gauge x 5/16 Needle 1 Pen by [facility].(Non-Drug; Combo Route) route daily. Patient not taking: Reported on 11/13/2021 10/20/21 11/13/21 Alyson Bailey MD insulin lispro (humaLOG KwikPen) 100 unit/mL Insulin Pen Inject 0-8 Units subcutaneously 3 times daily (before meals). Patient not taking: Reported on 11/13/2021 10/20/21 11/13/21 Alyson Bailey MD insulin needles, disposable, (BD Ultra-Fine Short Pen Needle) 31 gauge x 5/16 Needle 1 Pen by [facility].(Non-Drug; Combo Route) route 3 times daily. Patient [...] returns today with her daughter, Yvrose, to discuss her postoperative course. On 10/17/2021, she underwent a total laparoscopic/robotic [...] below. Today, she says she generally feels well. She has some scabs on her incision sites that she asked me about. She says her left lower quadrant incision feels fine. She denies any sensory deficits in her legs related to the lymph node procedures. She reports return to normal bowel and bladder function. Review of systems: 7 systems in total reviewed, otherwise negative. Vital signs: BP 149/75 (Patient Position: Sitting) Pulse 82 Temp 36.8 ??C (98.2 ??F) (Temporal) Resp 24 Ht 165.1 cm (5' 5) Wt 102 kg (224 lb 13.9 oz) SpO2 98% BMI 37.42 kg/m?? Physical examination: General: Somewhat soiled clothing, but otherwise well-groomed, occasionally tangential but certainly redirectable. She moves easily to and from the exam room without obvious limitation. Abdomen: The laparoscopic port sites are well approximated, with several retained eschars. I gave her a supply of Band-Aids to cover these with and showed her how to place them in a vertical orientation to prevent trauma to the eschar. The left lower quadrant incision is completely intact. The abdomen is nontender. There are no obvious hernias. Pathology: 10/18/2021 Molecular Genetics RESULTS MLH1 Promoter [...] MD Verified: 11/01/2021 16:02 Pathologist Performed at: -[facility] Dept. of Pathology, [place], [place] SYNOPTIC Specimen Procedure: Total hysterectomy and [...] Nodes with Macrometastasis: 1 Number of Pelvic [place] Nodes with Macrometastasis: 0 Total Number of Pelvic Nodes with Micrometastasis: 0 Number of Pelvic [place] Nodes with Micrometastasis: 0 Laterality of Pelvic Node(s) with Tumor: Left non-sentinel Size of Largest Pelvic [place] Metastatic Deposit: 4 mm Lymph Nodes Examined Total Number of Pelvic Nodes Examined: 3 Number of Pelvic [place] Nodes Examined: 3 Total Number of Para-aortic Nodes Examined: 0 Distant Metastasis Distant Site(s) Involved: Omentum - focally present in omental adhesion Pathologic Stage Classification (pTNM, AJCC 8th Edition) pT Category: pT3a pN Category: pN1a FIGO Stage FIGO Stage: IIIC1 Additional Findings Additional Findings: None identified Tumor Block(s): C10 [facility] May 2021 Release Impression/plan: Geeta is a 56 y.o.-year-old with [...] hesitant at the recommendation for chemotherapy, she is ready to move forward. She would like to be treated here. She will need her daughter, Yvrose, to drive her, and Yvrose says she is willing to do so. Therefore, we will move forward with the followin. Arrange for central venous access catheter placement here in interventional radiology. 2. Attempt chemotherapy teaching on same day as port placement, for patient convenience due to travel from [facility]. 3. Following this, schedule paclitaxel/carboplatin. Plan is for 6 cycles. 4. Notify Urology, patient needs a follow-up appointment for stent removal. The patient understands that she will be treated with [place] and taxane chemotherapy. The anticipated side effects of this treatment include: alopecia, nausea, vomiting, cyclic decreases in the white blood cell count, anemia, fatigue, numbness and tingling in the fingers and toes that is partially reversible,constipation, possible hypersensitivity reaction, possible skin rash. She has had the opportunity to ask questions. She will be given a chemotherapy teaching visit appointment, as well asprescriptions for anti-emetics and steroid premedication. This encounter was primarily counseling-based (>50 % of total time), with total time of 45 minutes, unrelated to the surgical global period/procedures itself, to discuss a new cancer diagnosis andtreatment as described below, of which 40 minutes was spent with the patient/family discussing: * Diagnostic/test results and/or recommendations for additional diagnostic or confirmatory studies; * Prognosis - related of the diagnosis/stage of the disease and course of treatment; * Risks and benefits of pertinent management and treatment options; * Instructions for disease management and the importance of compliance with recommended treatment; * Risk factor reduction, including additional screening and/or surveillance studies, as well as recommended lifestyle modifications; * Patient and family education, answering questions/concerns. documented in this encounter Plan of Treatment Not on file documented as of this encounter Visit Diagnoses Diagnosis Adenocarcinoma of endometrium Malignant neoplasm of corpus uteri, except isthmus documented in this encounter Care Teams Cardiovascular Surgical Tech Relationship Specialty Start Date End Date Pk Trevizo MD [address] [place] [address] PCP - General Emergency Medicine 05/02/21 documented as of this encounter
--- OUTSIDE RECORDS SUMMARY | 2024-04-14 12:56 | XMS_ITS | Encounter Summary ---
[place] [address] Care Team Providers Care Business Development Specialist Name Role Phone Pk Trevizo MD Primary Care Provider [phone] Encounter Details Date Type Department Care Team (Latest Contact Info) Description 11/24/2021 11:30 AM EDT Clinical Support Hematology [place] [address] Vanessa Stoddard, [facility] Endometrial cancer Social History Tobacco Use Types [...] as of this encounter Progress Notes * Vanessa Stoddard [facility] - 11/24/2021 11:30 AM EDT Chemotherapy Teaching Visit PATIENT ID: Geeta Sadler is a 56 y.o. 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 The plan is for carboplatin/paclitaxel given every 3 weeks for 6 cycles. The following information was reviewed with the patient. Chemotherapy Therapy Schedule: ??? Carboplatin (30 minute infusion) + paclitaxel (3 hour infusion) IV every 21 days Attending NETTING WEAVER/ONC: Dr. Vidales Provider Visits: Geeta will see either her physician or nurse practitioner prior to every cycle Possible Side Effects include, but are not limited to: Carboplatin (paraplatin): The most common side effects include decrease in blood counts (decrease in white blood cells, red blood cells and platelets resulting in increased risk of infection, anemia and bleeding), nausea and vomiting, taste changes, hair loss, weakness, low magnesium level. Less common side effects include infusion reaction, diarrhea or constipation, mouth sores, kidney dysfunction, ringing in the ears or hearing loss, electrolyte abnormalities. Paclitaxel (taxol): The most common potential side effects include: Decrease in blood counts (decrease in white blood cells, red blood cells and platelets, resulting in increased risk of infection, anemia and bleeding), numbness and tingling in the hands and feet, infusion reactions, nausea/vomiting, hair loss, diarrhea, muscle aches/joint pain, fatigue. The muscle aches tend to occur in the 2-3 days after treatment and last a few days. Less common side effects include swelling of the feet or ankles, liver dysfunction, nail changes. Medications: the following prescriptions should be picked up before starting treatment ??? Prochlorperazine (compazine): 1 tablet (10 mg) PO Q6H on days 1 through 3. ??? Olanzapine 5 mg nightly on Nights 1 through 4 with each chemotherapy cycle. ??? Ondansetron (zofran): 1 tablet (8 mg) every 8 hours as needed for nausea starting on day 4. Do NOT take within 3 days of chemotherapy. *Dexamethasone omitted due to elevated blood glucose. Plan: Geeta was given written information regarding chemotherapy regimen, side effects and management strategies. Geeta was given an opportunity to ask questions and verbalized understanding of the information and treatment plan. No barriers to learning were identified. Geeta was counseled on how to call for any further questions or concerns. ??? Chemotherapy is scheduled to begin on 12/01/21 ??? Supportive Care: o Antiemetics were reviewed with and Geeta understands how and when to take the medications prescribed - Prescriptions for prochlorperazine, ondansetron, and lorazepam were sent/called to her preferred pharmacy. Each medication reviewed with patient. o Discussed bowel regimen. Recommended to increase fiber, fluids and activity to help bowel function. Discussed possible need for stool softener, gentle laxative and fiber supplement if she is havingissues with constipation. Advised that she call the clinic if she has not had a bowel movement in > 48 hours. o Discussed use of tylenol. Patient made aware of antipyretic effects and encouraged she monitor temperature prior to taking when at risk for infection. We also discussed ibuprofen. Patient made aware of risks of bleeding with NSAIDS and to monitor this throughout treatment. o Discussed potential for peripheral neuropathy with paclitaxel. Informed patient new chemotherapy teaching packet will include information on complementary and alternative medicine options. Explained there is limited robust evidence in support of these therapies, but they may help some patients. Advised Geeta to further discuss these options with their provider if interested. o Discussed hair loss. Catalog for wigs given today. ??? Chemotherapy exposure precautions reviewed. 55 of this 60 minute face to face encounter was spent in counseling, education and coordination of care. documented in this encounter Plan of Treatment Not on file documented as of this encounter Visit Diagnoses Diagnosis Endometrial cancer Malignant neoplasm of corpus uteri, except isthmus documented in this encounter Care Teams Business Development Specialist Relationship Specialty Start Date End Date Pk Trevizo MD [address] [place] [address] PCP - General Emergency Medicine 05/02/21 documented as of this encounter
--- OUTSIDE RECORDS SUMMARY | 2024-04-14 12:56 | XMS_ITS | Encounter Summary ---
[place] [address] Care Team Providers Care Photographic Equipment Inspector Name Role Phone Pk Trevizo MD Primary Care Provider [phone] Reason for Referral * Diagnostic Test (Routine) - Closed Specialty Diagnoses / Procedures Referred By Contac t Referred To Contact Radiology Diagnoses Adenocarcinoma of endometrium Procedures IR Mediport Placement Brian Vidales MD [facility] [place] [address] [facility] [place] [address] Referral ID Status Reason Start Date Expiration Date V isits Requested Visits Authorized [id number] Closed Specialty Service Requested 11/13/2021 05/16/2023 1 1 Reason for Visit * Diagnostic Test (Routine) - Closed Specialty Diagnoses / Procedures Referred By Contac t Referred To Contact Radiology Diagnoses Adenocarcinoma of endometrium Procedures IR Mediport Brian Paz MD [facility] [place] [address] [facility] [place] [address] Referral ID Status Reason Start Date Expiration Date V isits Requested Visits Authorized [id number] Closed Specialty Service Requested 11/13/2021 05/16/2023 1 1 Encounter Details Date Type Department Care Team (Latest Contact Info) Description 11/24/2021 1:22 PM EDT - 11/24/2021 11:59 PM EDT Hospital [place] [phone] Brian Vidales MD [facility] [place] [address] Adenocarcinoma of endometrium Discharge Disposition: Home Social [...] Sign Reading Time Taken Comments Blood Pressure 144/59 11/24/2021 3:45 PM EDT Pulse 81 11/24/2021 3:10 PM EDT Temperature 36.6 ??C (97.9 ??F) 11/24/2021 3:20 PM ED T Respiratory Rate 18 11/24/2021 3:45 PM EDT Oxygen Saturation 98% 11/24/2021 3:45 PM EDT Inhaled Oxygen Concentration - - Weight - - Height - - Body Mass Index - - documented in this encounter Discharge Instructions * Discharge Instructions* Salina Fairchild RN - 11/24/2021 1:48 PM EDT Images from the original note were not included. [facility] Department of Vascular and Interventional Radiology Discharge Instructions for your Chest Port You have received a ???Power Port?? , which provides access for infusions and blood draws. What makes this a ???Power Port?? is the unique ability to ???power inject?? contrast (intravenous dye) through the port when getting a CT scan, which produces superior images (pictures). Patients who don???t have these special ports need to have an IV started if they need dye injected for their CT scan. Your port is printed with the letters ???CT?? which can be detected by x- ray to identify it as a ???Power Port?? . You will be provided with an ID card stating the cafeteria manager and type of port you have. Please carry this with you in a safe place. Bandage: There is a sterile dressing over the port site consisting of small gauze with a clear dressing (Tegaderm or [id number] ). This dressing should be left in place for 48 hours. If the clear dressing becomes loose you should place tape over the edges to secure it in place. Note: If you have steri-strips beneath your dressing, simply allow them to fall off. Do not peel them off. There may be [place]-garza (skin glue) also, allow this to flake off. Pain: Apply ice bag to site (s) at 30 minute intervals (30 minutes on and 30 minutes off) for 24 hours?? . May use as needed for pain and/or bruising after 24 hours. Bathing: Do not take a shower until 48 hours after your port is placed; after this time you may shower with the dressing in place, then remove it and pat your skin dry. After 48 hours, we recommend that you cover the area with THE AQUA GUARD PROVIDED for 1 week while showering, facing away from theshower stream. You may use a bandaid to cover the site after the 48 hours are up if there is any drainage. No tub baths, whirlpools or swimming for one week following port placement. Flushing the mediport: If your port has not been used, it must be flushed every 30 days. What to expect when your port is accessed: 1. You may feel tenderness the first few times it is accessed but generally this subsides over time. Ask your healthcare provider to use a local anesthetic on the site if discomfort is a problem for you. You may ask for a prescription for a topical cream (EMLA) from your clinician; you may apply athome prior to your appointments, to help numb the skin over your port. 2. The clinician should be wearing sterile gloves and a mask during the access procedure. Anyone inthe room with you should also have a mask on. 3. The skin over and 2 inches around the port should be cleaned with a disinfectant 4. Tell the clinician if you would like the skin numbed (lidocaine) before the access needle is placed. 5. Unless you are unable to take heparin (blood thinner), the port should be injected with a heparin solution before deaccess (at end of each treatment or blood draw). When to call your healthcare provider: If you notice bleeding from the puncture site in your neck, or from the port incision on your chest, you should apply firm pressure over the site for 10-15 minutes, keeping the site covered. Call if you are still bleeding after 10-15 minutes. If you develop pain, redness, drainage or swelling at or around the port site, or the puncture sitein the neck If you develop fever (elevation of more than 2 degrees or greater than 101F) and/or shaking chills When to call the Interventional Radiology Department: Please call with any questions or concerns. If it is during regular office hours, please call [phone]. If it is after regular office hours, or on weekends or holidays, please call [phone] and ask to speak to the Consumer Advocate individual pension adviser for Interventional Radiology. XXX You have received medication during your procedure to help lessen anxiety and keep you comfortable. These medications affect judgement and reaction time. We [...] as of this encounter Progress Notes * Salina Fairchild RN - 11/24/2021 1:48 PM EDT ANGIO NURSING DATABASE Name: KSENIA SADLER Date of : 1965 AGE: 56 y.o. [address]: [address] [place] [phone] Phone: [phone] (home) Mobile: Telephone Information: Referring Provider: Brian Vidales REASON FOR VISIT: Order Questions Answers Where will study be performed? [facility] Radiology [120] Is the patient on anticoagulant / antiplatelet therapy ? No Reason for exam and clinical history: 56 y/o female needing mediport for chemotherapy treatment. Planned procedure: Chest Port - Single Lumen Placement Labs to be performed day of procedure: No labs Sedation: Moderate (Conscious sedation) Prophylactic antibiotic : None Contrast: No contrast Additional medications for procedure: Lidocaine Planned access site: Right IJ Position: Supine Consent: Pending Medications to discontinue (and days held): None Case Urgency:: G- Other (non E or F elective cases) No Known Allergies Pertinent PMH: Patient Active Problem List Diagnosis Code ??? Hypertension I10 ??? Obesity E66.9 ??? Abnormal vaginal bleeding with endometrial thickness greater than 5 mm present on transvaginal ultrasound in postmenopausal patient N95.0, R93.89 ??? Stenosis of right carotid artery greater than 50% I65.21 ??? Adenocarcinoma of endometrium C54.1 ??? Cigarette smoker F17.210 ??? Post-operative state Z98.890 Date/Procedure Meds Given/Comments 11/24/21 Mediport Placement Fentanyl 150 mcg IV, Versed 3 mg IV, Zofran 4 mg IV. Tolerated procedurewell. 1410 to procedure room 3 via stretcher. Onto table supine. All monitors, O2, safety strap in place.Meds per protocol. Laboratory Results: Lab Results Component Value Date CREATININE 0.62 (L) 10/20/2021 Lab Results Component Value Date K 4.3 10/20/2021 Lab Results Component Value Date PLATELET 324 10/20/2021 documented in this encounter H&P Notes * Matthew Trujillo PA - 11/24/2021 1:39 PM EDT INTERVENTIONAL RADIOLOGY FOCUSED H&P: Procedure: mediport Update to H&P: The patient's history and physical exam have been reviewed and completed. There has been NO interval change from that of the pre-procedural note done within the last 30 days. There is NO change in the procedural plan. Physical Exam: Cardiovascular: Regular, Normal Pulmonary: Breath sounds clear to auscultation Meds: Current medications reviewed. No medications held. Labs: No new relevant labs. The planned procedure (and sedation plan if appropriate) , its benefits and risks, and alternativeswere discussed with the patient. The patient consented to the procedure. PRE-SEDATION ASSESSMENT: Sedation Plan: moderate (conscious sedation) ASA: 3: Patient with severe systemic disease Mallampati: I: soft palate, fauces, tonsillar pillars and uvula can be seen Confirm NPO status: Yes History of anesthetic complications: No Current medications reviewed: Yes Allergies reviewed: Yes Source Note - Jared Broussard DO - 11/14/2021 8:48 AM EDT Images from the original note were not included. INTERVENTIONAL RADIOLOGY FOCUSED H&P and PRE-PROCEDURE NOTE: PCP: Pk Trevizo MD Referring Provider: Leslye Vidales. Planned Procedure: Planned procedure: Chest Port - Single Lumen Placement Procedure Indication: Endometrial Adenocarcinoma. Plan for Systemic Therapy. Need for durable, long-term venous access for chemotherapy. Procedure Request: Procedure request received through the Interventional Radiology eDH order queue. Presenting Diagnosis/ Complaint: Ksenia Sadler is a 56 y.o. female presenting to IR for chest port - single lumen placement. Past medical history is significant for cigarette smoker, HTN, obesity and new diagnosis of endometrial adenocarcinoma status post total laparoscopic/robotic hysterectomy,BSO, omental biopsy, sentinel lymph node mapping and biopsy. Now with plan for systemic therapy. Need for durable, long-term venous access for chemotherapy. IR History: None at [facility]. Antiplatelets: Aspirin 81 mg daily. Anticoagulants: None. [...] 2.37) performed by Justice Cole MD at [facility] OR ??? PRO EXPLORATORY OF ABDOMEN N/A 10/17/2021 @EXPLORATORY LAPAROTOMY, WITH/WITHOUT BIOPSY(S) (WRVU 12.54) performed by Jared Kiser MD at [facility] OR ??? PRO INCISE BLADDER, +URETER CATH Left 10/17/2021 CYSTOTOMY WITH INSERTION OF URETERAL STENT\CATHETER (WRVU 7.81) performed by Justice Cole MD at [facility] OR ??? PRO INTRAOP SENTINEL LYMPH ID W/DYE INJECTION N/A 10/17/2021 INTRAOPERATIVE ID (MAPPING) SENTINEL LYMPH NODE,INCLUDES INJECTION (WRVU 2.5) performed by Brian Vidales MD at [facility] OR ??? PRO LAP, PELVIC LYMPHADENECTOMY/BX N/A 10/17/2021 LAPAROSCOPY,W\BILATERAL TOTAL PELVIC LYMPHADENECTOMY, PERIAORTIC LYMPH NODE SAMPLING, ROBOTIC (WRVU15.6) performed by Brian Vidales MD at [facility] MAIN OR ? ? PRO LAPAROSCOPY W TOT HYSTERECTUTERUS <=250 GRAM W TUBE/OVARY N/A 10/17/2021 LAPAROSCOPY,TOTAL HYST, UTERUS<250GM, REM TUBE &/OR OVARY, ROBOTIC ASSIST (WRVU 15) performed by Brian Vidales MD at [facility] MAIN OR ??? PRO REPAIR OF KIDNEY WOUND 10/17/2021 @NEPHRORRHAPHY, SUTURE KIDNEY WOUND OR INJURY (WRVU 21.22) performed by Justice Cole MD at [facility] MAIN OR ??? PRO THROMBOENDARTECTMY NECK, NECK INCIS Right 09/15/2021 @ENDARTERECTOMY, CAROTID, VERTEBRAL,SUBCLAVIAN W\WO PATCH GRAFT (VU 21.16) performed by Mickey Magallon MD at [facility] MAIN OR Medications: Current Outpatient Medications [...] Priority Date/Time Associated Diagnosis Comments IR MEDIPORT PLACEMENT Routine 11/24/2021 3:22 PM EDT Adenocarcinoma of endometrium POCT GLUCOSE Routine 11/24/2021 1:49 PM EDT documented in this encounter Results * IR Mediport Placement [...] Nurse. Brian Vidales MD IMG IR ORDERABLES * POCT Glucose (11/24/2021 1:49 PM EDT) Glucose, POC 102 65 - 199 mg/dL [facility] Comment: Supplemental ranges: <140 mg/dL before meals <180 mg/dL all other times of the day Blood 11/24/2021 1:49 PM EDT 11/24/2021 1:49 PM EDT Brian Vidales MD POINT OF CARE TEST O RDERABLES [facility] [place] [phone] documented in this encounter Visit Diagnoses Diagnosis Adenocarcinoma of endometrium Malignant neoplasm of corpus uteri, except isthmus documented in this encounter Administered Medications Inactive Administered Medications - up to 3 most recent administrations Medication Order MAR Action Action Date Dose Rate Site fentaNYL (pf) (50 mcg/mL) multi-dose injection 25-50 mcg 25-50 mcg, Intravenous, EVERY 3 MIN PRN, Starting on Sat11/24/21 at 1352, Until Sat11/24/21 at 1602, Pain, per unit protocol, - Start dose 50 mcg (reduce dose to 25 mcg if history of sedation sensitivity). - Titration dose 25-50 mcg IV, (based on patient response) every 3 minutes PRN, to maintain procedural pain less than 2 per pain Scale. Maximum dose: 50 mcg/dose, 250 mcg/hour For use in Interventional Radiology (IR) only for procedural sedation with direct provider supervision and verbal order., Angio/IR (Intra-Procedure), Routine Given 11/24/2021 2:53 PM EDT 25 mcg Given 11/24/2021 2:49 PM EDT 25 mcg Given 11/24/2021 2:40 PM EDT 25 mcg lidocaine (Xylocaine) 1% (10 mg/mL) injection 10 mg 10 mg, Subcutaneous, ONCE, 1 dose, On Sat11/24/21 at 1415, For use in Interventional Radiology (IR) only for procedure with direct provider supervision and verbal order., Angio/IR (Intra-Procedure), Routine Given 11/24/2021 2:36 PM EDT 10 mg lidocaine-EPINEPHrine (1% - 1:100,000) injection 50 mL 50 mL, Intradermal, ONCE, 1 dose, On Sat11/24/21 at 1415, For use in Interventional Radiology (IR) only for Radiofrequency Ablation of Saphenous Vein procedure with direct provider supervision and verbal order., Angio/IR (Intra-Procedure), Routine Given 11/24/2021 2:36 PM E DT 50 mLs midazolam (pf) (Versed) (1 mg/mL) multi-dose injection 0.5-1 mg 0.5-1 mg, Intravenous, EVERY 3 MIN PRN, Starting on Sat11/24/21 at 1352, Until Sat11/24/21 at 1602, Sleep, - Start dose; 1 mg (Reduce dose to 0.5 mg if history of sedation sensitivity). - Titration dose: 0.5 mg - 1 mg (based on patient response) every 3 minutes PRN to obtain RASS score of -3. Maximum dose: 1 mg per dose, 5 mg/hour. For use in Interventional Radiology (IR) only for procedural sedation with direct provider supervision and verbal order., Angio/IR (Intra-Procedure), Routine Given 11/24/2021 2:53 PM EDT 0.5 mg Given 11/24/2021 2:49 PM EDT 0.5 mg Given 11/24/2021 2:40 PM EDT 0.5 mg ondansetron (pf) (Zofran) (2 mg/mL) injection 4-8 mg 4-8 mg, Intravenous, ONCE PRN, 1 dose, Starting on Sat11/24/21 at 1414, Until Sat11/24/21 at 1422, Nausea, May repeat one time in 15 minutes for unrelieved nausea for a total of 2 doses., Angio/IR (Intra-Procedure) Given 11/24/2021 2:22 PM EDT 4 mg sodium chloride 0.9% infusion 1,000 mL, at 100 mL/hr, Intravenous, CONTINUOUS, Starting on Sat11/24/21 at 1415, Until Sat11/24/21 at 1602, Angio/IR (Day of Procedure) New Bag 11/24/2021 2:22 PM EDT 1,000 mLs 100 mL/hr documented in this encounter Care Teams Photographic Equipment Inspector Relationship Specialty Start Date End Date Pk Trevizo MD [address] [place] [address] PCP - General Emergency Medicine 05/02/21 documented as of this encounter
--- OUTSIDE RECORDS SUMMARY | 2024-04-14 12:57 | XMS_ITS | Encounter Summary ---
Author Organization [facility] [place] [address] Care Team Providers Care Auxiliary Powerplant Operator Name Role Phone Pk Trevizo MD Primary Care Provider [phone] Encounter Details Date Type Department Care Team (Late st Contact Info) Description 10/03/2021 Telephone [place] [phone] Tiana Benz RN Social History Tobacco Use [...] Telephone Encounter - Tiana Benz RN - 10/03/2021 1:33 PM EDT Called Nicholas, from [facility] Radiology, to let him know we have sent the patient's recent labs (creatinine, BUN) and a reference number ([id number]) for no PA needed. * Telephone Encounter - Tiana Benz RN - 10/03/2021 1:29 PM EDT ----- Message from Maria D Ortez sent at 10/03/2021 11:24 AM EDT ----- Regarding: Orders Caller's name: Nicholas from [facility] Radiology Call back #: [phone] Patient's provider/team: Dr Vidales Reason for call: No order for Labs or a PA documented in this encounter Plan of Treatment Not on file documented as of this encounter Visit Diagnoses Not on filedocumented in this encounter Care Teams Auxiliary Powerplant Operator Relationship Specialty Start Date End Date Pk Trevizo MD [address] [place] [id number] PCP - General Emergency Medicine 05/02/21 documented as of this encounter
--- OUTSIDE RECORDS SUMMARY | 2024-04-14 12:57 | XMS_ITS | Encounter Summary ---
[facility] Address [facility] [place] [address] Care Team Providers Care Regional Transfer Liaison Name Role Phone Pk Trevizo MD Primary Care Provider Reason for Visit * Reason Comments Establish Care * Consultation (Routine) - Closed Specialty Diagnoses / Procedures Referred By Kit saravia Referred To Contact Gynecology Oncology Diagnoses Adenocarcinoma of endometrium Melba Regan CNM [facility] DR OBSTETRICS [place] [address] [facility] Computer Support Technician [address] [place] [phone] Referral ID Status Reason Start Date Expiration Date V isits Requested Visits Authorized [id number] Closed Consult, Test & Treat 09/20/2021 09/20/2022 1 1 Encounter Details Date Type Department Care Team (Latest Contact Info) Description 09/28/2021 8:00 AM EDT Office Visit [place] [address] Brian Vidales MD [facility] [place] [address] Cigarette smoker; Adenocarcinoma of endometrium; Abnormal vaginal bleeding with endometrial thickness greater [...] Sign Reading Time Taken Comments Blood Pressure 150/75 09/28/2021 7:57 AM EDT Pulse 92 09/28/2021 7:57 AM EDT Temperature 36.6 ??C (97.8 ??F) 09/28/2021 7:57 AM ED T Respiratory Rate 20 09/28/2021 7:57 AM EDT Oxygen Saturation 97% 09/28/2021 7:57 AM EDT Inhaled Oxygen Concentration - - Weight 100.2 kg (221 lb) 09/28/2021 7:57 AM EDT Height 165.5 cm (5' 5.16) 09/28/2021 7:57 AM ED T Body Mass Index 36.6 09/28/2021 7:57 AM EDT documented in this encounter Progress Notes * Brian Vidales MD - 09/28/2021 8:00 AM EDT Division [place] [address] Gynecologic Oncology Clinic New Patient Visit Reason for visit: New uterine endometrial cancer, referred by: Melba Regan CNM [facility] [address] [place] [address] Problem List Patient Active Problem List Diagnosis Code ??? Hypertension I10 ??? Obesity E66.9 ??? Abnormal vaginal bleeding with endometrial thickness greater than 5 mm present on transvaginal ultrasound in postmenopausal patient N95.0, R93.89 ??? Stenosis of right carotid artery greater than 50% I65.21 ??? Adenocarcinoma of endometrium C54.1 ??? Cigarette smoker F17.210 History of present illness: Geeta Sadler is a very nice 56 y.o. white female, para 2. She's been menopausal since her 50s. She developed postmenopausal bleeding in March 2021, but did not immediately seek evaluation. She had a stroke about that time. She was anticoagulated. She was started on progestin therapy, and continues on low-dose norethindrone presently. More recently, she underwent a right carotid endarterectomy last week. She was started on aspirin. She is not anticoagulated and is not on antiplatelet therapy. An endometrial biopsy was performed on 09/08/2021. [...] The tumor cells show a PAX8+, ER+, MI+, p53 wild-type, p16+ ??(nondiffuse) immunoprofile, most in keeping with an endometrioid carcinoma. Based ??on the solid growth, a FIGO grade 2-3 is favored; however, the fragments of tumor ??are small in this biopsy and may not be fully senior human resources representative of the entire lesion. ??Definitive tumor classification and grading should be made upon evaluation of the ??entire lesion in a larger surgical specimen. Currently she reports that she continues to have intermittent vaginal bleeding. She continues on norethindrone. She reports that her appetite is fair. She has intermittent constipation, but now having loose stools, denies hematochezia or melena. She has occasional mild stress urinary incontinence, which is not limiting. She denies hematuria ordysuria. She has had no new leg swelling. Regarding pain, she has intermittent cramping pain prior to bleeding episodes. Although counseled to stop smoking, she continues to smoke regularly, has no definitive cessation plan or stop date in mind. Gynecologic history: Menarche was approximately age 10, menopause approximately age around 49. Number of pregnancies: 2, Spontaneous vaginal deliveries: 2 c-sections:0. Oral contraceptive/ control pill use: Never. Menopausal hormone therapy use: Never. Other contraceptive history: Norplant, BTL. Her Paps have been regularly obtained. Last Pap was normal by her report. She denies a history of cervical dysplasia or other gynecologic morbidities such as endometriosis, PID, etc. Cancer screening 1. Mammography: 2020. 2. Colonoscopy: Never. The patient was counseled in the goals of colonoscopy screening, and encouraged to pursue the same through her PCP. Family history: There are no other family members with a history of breast, ovarian, uterine/endometrial, colon, thyroid, pancreatic, gastric, renal/ureteral cancers, or melanoma. Past medical history 1. Mild stroke, 03/2021, left arm decreased sensation and slight occasional weakness.. 2. Tobacco use, continuous. 3. Takes a statin for prophylaxis. Past surgical history 1. Right carotid endarterectomy, 09/21/2021, Dr. Magallon, [facility]. Social history: Lives in an apartment alone in [place], with her 2 cats. She has no current significant other or partner. She considers her primary next of kin to be her daughter Yvrose, who lives nearby. Yvrose accompanies her to the visit today. She formally worked in a [employer] She completed the 12th grade education. She is not currently working. Tobacco history: Started smoking in her teens, continues to smoke, no definitive cessation plan. Was counseled today on smoking cessation recommendation. Alcohol history: Does not drink, denies prior alcohol misuse issues. Other drugs: Denies Herbal/alternative therapies: Denies. Performance status: Karnofsky Scale -70; ECOG= 1-2; limited by leg and back pain, deconditioning. Medications Prior to Admission medications Medication Sig Start Date End Date Taking? Authorizing Provider nicotine (Nicoderm CQ) 21 mg/24 hr Patch 24 hr Change 1 patch on the skin daily. 09/16/21 Yes Sara Barron APRN atorvastatin (Lipitor) 80 mg Tablet Take 1 tablet by mouth every evening. 09/16/21 Yes Hamlet Barron APRN aspirin 81 mg Tablet, Chewable Take 81 mg by mouth daily. Yes PROVIDER, HISTORICAL norethindrone (Aygestin) 5 mg Tablet TAKE 2 TABLETS BY MOUTH TWICE A DAY 03/25/21 Yes PROVIDER, HISTORICAL acetaminophen 325 mg Capsule Take by mouth. Yes PROVIDER, HISTORICAL nicotine polacrilex (Commit) [address] 1 lozenge inside cheek every hour as needed for Smoking cessation. Patient not taking: Reported on 09/28/2021 09/16/21 Sara Barron APRN medroxyPROGESTERone (PROVERA) 5 mg Tablet TAKE ONE TABLET BY MOUTH TWICE A DAY 03/02/21 PROVIDER, HISTORICAL nicotine (Nicotrol) 10 mg Cartridge Inhale into the lungs. 03/25/21 PROVIDER, HISTORICAL Allergies No Known Allergies Vital signs: BP 150/75 (Patient Position: Sitting) Pulse 92 Temp 36.6 ??C (97.8 ??F) (Temporal) Resp 20 Ht 165.5 cm (5' 5.16) Wt 100.2 kg (221 lb) SpO2 97% BMI 36.60 kg/m?? Physical examination General: She is alert and oriented, well-groomed and dressed, no obvious distress. She ambulates easily to the examination table. HEENT: Head exam was generally normal. There was no scleral icterus or corneal arcus. Mucus membranes were moist. Maxilla is edentulous, few remaining teeth in the mandible. Neck was supple and without jugular venous distension, thyromegaly, or carotid bruits. Right neck scar consistent with recent endarterectomy procedure, with overlying retained glue. There was no adenopathy. Lungs: Clear to auscultation bilaterally, without adventitious sounds. Heart: Regular rate, normal rhythm, no obvious murmurs detected.. Abdomen: Slightly obese, soft, nontender, without obvious organomegaly, masses, ascites, tenderness, or inguinal lymphadenopathy. Pelvic examination: Normal external genitalia with blood staining on the perineum. Normal vulva, perineal body, perianal area. Speculum exam demonstrates a well supported rugated slightly atrophic vagina. The cervix is seen, and some blood is noted. There are no tumor seen. There appears to be someslight cuffing around the upper fornix. On bimanual exam, the uterus is slightly enlarged, but no obvious cervical expansion. Rectovaginal exam: Deferred to surgery. Extremities: No edema. Laboratory/pathology/imaging studies: As discussed above, in the history of present illness. Impression/plan: Geeta is a 56 y.o. woman with a biopsy revealing endometrial adenocarcinoma, FIGO grade 2-3. The pathology was reviewed here at [facility]. Based on these findings, a decision was made to proceed with surgery for definitive treatment, specifically: Laparoscopic/robotic hysterectomy, bilateral salpingo- oophorectomy, with laparoscopic sentinel lymph node mapping, sentinel lymph node biopsy and possible laparoscopic pelvic/para-aortic lymphadenectomy, as indicated, based upon intraoperative findings. Her performance status is adequate for surgery. I reviewed the natural course of endometrial cancer with the patient and the role that surgery plays in determining the stage/grade of the cancer and it's subsequent treatment after surgery, if indicated by the stage/grade and other prognostic factors. I informed her that in many endometrial cancercases, they are diagnosed early and that the intent of therapy is curative. I reviewed the surgical approach, need for general anesthesia, and the expected postoperative recovery. The patient was informed that patient's undergoing this procedure typically are safe to go homethe day after surgery. Additionally, I discussed the risks of the procedure including, but not limited to: infection, bleeding, chronic leg swelling (lymphedema), DVT/PE, , damage to pelvic or abdominal structures such as the bowel, bladder, ureters, blood vessels, nerves, and the possibility of needing to convert to an open surgery. All of her questions were answered to her satisfaction andshe verbalized understanding of the plan of care. Surgical consent was obtained, bowel preparation reviewed and surgery will be scheduled in the near future. She did not desire a copy of the consent form. Additional studies/tests/consults ordered before surgery: Labs: 09/28/2021 Recent Results (from the past 24 hour(s)) Cancer Antigen 125 Result Value Ref Range CA 125 41.7 (H) <=38.1 unit/mL Comprehensive metabolic panel (non-fasting) Result Value Ref Range Glucose Lvl 214 (H) 65 - 199 mg/dL BUN 8 8 - 18 mg/dL Creatinine 0.75 0.70 - 1.20 mg/dL Sodium 135 135 - 145 mmol/L Potassium 3.6 3.5 - 5.0 mmol/L Chloride 103 98 - 107 mmol/L CO2 19 (L) 22 - 31 mmol/L Anion Gap 13 5 - 15 mmol/L Calcium 8.5 8.5 - 10.5 mg/dL Total Protein 6.7 6.1 - 8.0 g/dL Albumin 4.1 3.2 - 5.2 g/dL AST 13 0 - 30 unit/L ALT 16 0 - 30 unit/L Alk Phos 46 35 - 105 unit/L Total Bilirubin 0.3 0.2 - 1.3 mg/dL Estimated GFR 88 >=60 mL/min/1.73 m?? ABO/Rh Typing Result Value Ref Range ABORh Type A Pos Antibody screen Result Value Ref Range Ab Screen Interp Negative Expires at 2359 on: 11/12/2021 Hemogram Result Value Ref Range WBC 10.3 (H) 4.0 - 9.5 x10(3)/mcL RBC 3.85 (L) 4.00 - 5.21 x10(6)/mcL Hemoglobin 10.9 (L) 11.7 - 15.5 g/dL Hematocrit 34.2 (L) 35.7 - 45.8 % MCV 88.8 82.6 - 94.4 fL MCH 28.3 27.1 - 32.0 pg MCHC 31.9 31.7 - 35.0 g/dL Platelets 410 (H) 145 - 357 x10(3)/mcL RDWSD 57.1 (H) 37.0 - 46.0 fL RDWCV 17.6 (H) 11.5 - 14.1 % MPV 11.5 7.6 - 12.9 fL nRBC % Auto 0.0 % nRBC Abs Auto 0.000 0.000 - 0.000 x10(3)/mcL Differential, Automated Result Value Ref Range Neutrophils % 62.7 % Neutr Abs (ANC) 6.47 (H) 1.70 - 6.10 x10(3)/mcL Lymphocytes % 31.5 % Lymphocytes Abs 3.2 0.9 - 3.2 x10(3)/mcL Monocytes % 4.2 % Monocyte Abs 0.4 0.3 - 0.9 x10(3)/mcL Eosinophils % 0.6 % Eosinophils Abs 0.1 0.0 - 0.4 x10(3)/mcL Basophils % 0.7 % Basophils Abs 0.1 0.0 - 0.1 x10(3)/mcL Immature Gran % 0.30 % Oralia Gran Abs 0.03 0.00 - 0.04 x10(3)/mcL ABORH Recheck Status Result Value Ref Range ABORH Recheck Order Order Placed Type and Screen Validity Result Value Ref Range T&S only valid at [facility] Hosp Imaging: Due to the elevated tumor marker, long history of bleeding, and potentially high-grade cancer, we will order CT of chest, abdomen, pelvis prior to surgery. Other: None 1. CHG soap and cleansing instructions provided. 2. Patient given diet instructions and ClearFast drink. Surgery date: TBD - needs Vascular Surgery 'clearance/approval' before scheduling, given recent procedure. Incision planned/discussed: LS-robotic (unless upcoming CT shows bulky extrauterine disease, precluding a minimally invasive procedure). Expected discharge disposition: SDD Appropriate for consideration of epidural neuraxial analgesia?: No Anni-op Prophylaxis: Cefazolin, 2 gm; metronidazole 500 mg; SCD's/heparin 5000 U SQ Rx's given today: Megestrol 40 mg BID Thank you for sending to see me today. I will keep you informed of our progress in her care. documented in this encounter Plan of Treatment Not on file documented as of this encounter Results * (ABNORMAL) Cancer Antigen 125 (09/28/2021 9:58 AM EDT) CA 125 41.7(H) <=38.1 unit/mL [facility] Comment: CA 125 Reference Interval ??Postmenopausal: 6.2 to 31.5 U/mL. ??Premenopausal: 6.9 to 45.9 U/mL. ??Pre and Postmenopausal subjects combined: 6.4 to 38.1 U/mL. Blood 09/28/2021 9:58 AM EDT 09/28/2021 10:23 AM EDT Narrative Resulting Agency Comment Spec In Lab Brian Vidales MD CHEMISTRY ORDERABLES [facility] [place] [address] * (ABNORMAL) Comprehensive metabolic panel (non-fasting) (09/28/2021 9:58 AM EDT) Glucose 214(H) 65 - 199 mg/dL [facility] Comment:Diabetes: >=200 mg/d L plus symptoms Blood Urea Nitrogen 8 8 - 18 mg/dL [facility] Creatinine 0.75 0.70 - 1.20 mg/dL [facility] Sodium 135 135 - 145 mmol/L [facility] Potassium 3.6 3.5 - 5.0 mmol/L [facility] Comment: Please note: ??Patients with WBC >100,000 may have falsely elevated Potassium levels. ??For accurate Potassium quantification in these patients send serum separator tube (gold top) for subsequent determinations. ??Contact the Clinical Chemistry Laboratory if there are any questions. Chloride 103 98 - 107 mmol/L [facility] Carbon Dioxide 19(L) 22 - 31 mmol/L [facility] Anion Gap 13 5 - 15 mmol/L [facility] Calcium 8.5 8.5 - 10.5 mg/dL [facility] Protein, Total 6.7 6.1 - 8.0 g/dL [facility] Albumin 4.1 3.2 - 5.2 g/dL [facility] Aspartate Aminotransferase 13 0 - 30 unit/L [facility] Alanine Aminotransferase 16 0 - 30 unit/L [facility] Alkaline Phosphatase 46 35 - 105 unit/L [facility] Bilirubin, Total 0.3 0.2 - 1.3 mg/dL [facility] Est Glomerular Filtration Rate 88 >=60 mL/min/1. 73 m?? [facility] Comment: This patient? s estimated glomerular filtration rate (eGFR) is between 88 mL/min/1.73 m2 (patients with less muscle mass) and 103 mL/min/1.73 m2 (patients with more muscle mass) [...] and symptoms in addition to eGFR. Blood 09/28/2021 9:58 AM EDT 09/28/2021 10:23 AM EDT Narrative Resulting Agency Comment Spec In Lab Brian Vidales MD CHEMISTRY ORDERABLES [facility] [place] [address] documented in this encounter Visit Diagnoses Diagnosis Cigarette smoker Tobacco use disorder Adenocarcinoma of endometrium Malignant neoplasm of corpus uteri, except isthmus Abnormal vaginal bleeding with endometrial thickness greater than 5 mm present on transvaginal ultrasound in postmenopausal patient documented in this encounter Care Teams Regional Transfer Liaison Relationship Specialty Start Date End Date Pk Trevizo MD [address] [place] [address] PCP - General Emergency Medicine 05/02/21 documented as of this encounter
--- OUTSIDE RECORDS SUMMARY | 2024-04-14 12:57 | XMS_ITS | Encounter Summary ---
Author Organization [facility] [place] [address] Care Team Providers Care Land Management Forester Name Role Phone Pk Trevizo MD Primary Care Provider [phone] Encounter Details Date Type Department Care Team (Latest Contact Info) Description 09/28/2021 Travel Social History Tobacco Use Types Packs/Day [...] on filedocumented in this encounter Care Teams Land Management Forester Relationship Specialty Start Date End Date Pk Trevizo MD [address] [place] [address] PCP - General Emergency Medicine 05/02/21 documented as of this encounter
--- OUTSIDE RECORDS SUMMARY | 2024-04-14 12:57 | XMS_ITS | Encounter Summary ---
Author Organization [facility] [place] [address] Care Team Providers Care Dust Control Engineer Name Role Phone Pk Trevizo MD Primary Care Provider [phone] Encounter Details Date Type Department Care Team (Latest Contact Info) Description 09/28/2021 9:30 AM EDT Clinical [place] [id number] Cigarette smoker; Adenocarcinoma of endometrium Social History Tobacco Use [...] as of this encounter Progress Notes * Aguila Au RN - 09/28/2021 9:30 AM EDT PCC questionnaire reviewed with patient, daughter and granddaughter while in Pre Admission testing.Pre-operative instruction booklet reviewed. Patient verbalizes a good understanding of all information reviewed. Reviewed importance of pain control and cough and deep breathing exercise during the post-operative period. Instructed patient on use of Hibiclens soap to shower with the night before wade jaison and the morning of surgery. Pre Surgery Covid screening: Were you diagnosed with COVID 19 or had symptoms consistent with COVID19 within the last 3 months? No PLAN: Testing: Labs, T&S Special medication instructions: Clearfast 1 bottle given to patient with instructions to drink 3 hours prior to surgery. Procedure date: NB. Dr. Vidales documented in this encounter Plan of Treatment Not on file documented as of this encounter Procedures Procedure Name Priority Date/Time Associated Diagnosis Comments TYPE AND SCREEN VALIDITY Routine 09/28/2021 9:58 AM EDT ABORH RECHECK STATUS Routine 09/28/2021 9:58 AM EDT HEMOGRAM Routine 09/28/2021 9:58 AM EDT Cigarette smoker Adenocarcinoma of endometrium DIFFERENTIAL, AUTOMATED Routine 09/28/2021 9:58 AM EDT Cigarette smoker Adenocarcinoma of endometrium HC VENIPUNCTURE Routine 09/28/2021 9:58 AM EDT Cigarette smoker Adenocarcinoma of endometrium ABO/RH TYPING Routine 09/28/2021 9:58 AM EDT Cigarette smoker Adenocarcinoma of endometrium HC CBC,PLT & AUTO DIFF Routine 9:58 AM EDT Cigarette smoker Adenocarcinoma of endometrium ANTIBODY SCREEN Routine 09/28/2021 9:58 AM EDT Cigarette smoker Adenocarcinoma of endometrium HC CANCER ANTIGEN 125 Routine 09/28/2021 9:58 AM EDT Cigarette smoker Adenocarcinoma of endometrium COMPREHENSIVE METABOLIC PANEL Routine 09/28/2021 9:58 AM EDT Cigarette smoker Adenocarcinoma of endometrium documented in this encounter Results * Type and Screen Validity (09/28/2021 9:58 AM EDT) T&S only valid at [facility] LABORATORY Comment:This Type and Screen result is only valid at the [facility] Blood 09/28/2021 9:58 AM EDT 09/28/2021 10:50 AM EDT Narrative Resulting Agency Comment Spec In Lab Brian Vidales MD BLOOD BANK LAB ORDER PRAKASH [facility] [place] [address] * ABORH Recheck Status (09/28/2021 9:58 AM EDT) ABORH Recheck Order Order Placed [facility] ABORH Type Recheck Complete [facility] Blood 09/28/2021 9:58 AM EDT 09/28/2021 10:50 AM EDT Narrative Resulting Agency Comment Spec In Lab Brian Vidales MD BLOOD BANK LAB ORDER PRAKASH Performing Organization Address City/[facility]/ZIP Co de Phone Number [facility] [place] [address] * (ABNORMAL) Differential, Automated (09/28/2021 9:58 AM EDT) Neutrophil % 62.7 % [facility] Neutrophil Absolute 6.47(H) 1.70 - 6.10 x10(3)/mc L [facility] Lymph % 31.5 % [facility] Lymphocytes Abs 3.2 0.9 - 3.2 x10(3)/mc L [facility] Monocyte % 4.2 % [facility] Monocyte Abs 0.4 0.3 - 0.9 x10(3)/mc L [facility] Eos % 0.6 % [facility] Eosinophils Abs 0.1 0.0 - 0.4 x10(3)/mc L [facility] Basophil % 0.7 % [facility] Baso Absolute 0.1 0.0 - 0.1 x10(3)/mc L [facility] Immature Gran % 0.30 % [facility] Comment: Immature granulocytes(IG's)percentage and absolute count will include metamyelocytes, myelocytes, and promyelocytes. Blood smears from CBCs yielding IG's will be scanned manually for concordance. If this scan disagrees with the automated IG or if promyelocytes are noted, a manual differential will be performed. Immature Gran Absolute 0.03 0.00 - 0.04 x10(3)/mc L [facility] Blood 09/28/2021 9:58 AM EDT 09/28/2021 10:23 AM EDT Narrative Resulting Agency Comment Spec In Lab Brian Vidales MD HEMATOLOGY ORDERABLE S [facility] [place] [address] * (ABNORMAL) Hemogram (09/28/2021 9:58 AM EDT) White Blood Cell 10.3(H) 4.0 - 9.5 x10(3)/mc L [facility] Red Blood Cell 3.85(L) 4.00 - 5.21 x10(6)/mc L [facility] Hemoglobin 10.9(L) 11.7 - 15.5 g/dL [facility] Hematocrit 34.2(L) 35.7 - 45.8 % [facility] Mean Cell Volume 88.8 82.6 - 94.4 fL [facility] Mean Cell Hemoglobin 28.3 27.1 - 32.0 pg [facility] Mean Cell Hemoglobin Concentration 31.9 31.7 - 35.0 g/dL [facility] Platelet 410(H) 145 - 357 x10(3)/mc L [facility] RDW Standard Deviation 57.1(H) 37.0 - 46.0 fL [facility] RDW coefficient of variation 17.6(H) 11.5 - 14.1 % [facility] Mean Platelet Volume 11.5 7.6 - 12.9 fL [facility] NRBC% auto 0.0 % [facility] NRBC Absolute 0.000 0.000 - 0.000 x10(3)/mc L [facility] Blood 09/28/2021 9:58 AM EDT 09/28/2021 10:23 AM EDT Narrative Resulting Agency Comment Spec In Lab Brian Vidales MD HEMATOLOGY ORDERABLE S [facility] [place] [address] * Antibody screen (09/28/2021 9:58 AM EDT) Ab Screen Interp Negative [facility] Expires at [id number] on: 10/20/2021 [facility] Comment: Corrected from 11/12/21 0:00:00 EDT [Unknown] on 10/05/21 15:29:02 EDT by Indira Lai Blood 09/28/2021 9:58 AM EDT 09/28/2021 10:50 AM EDT Narrative Resulting Agency Comment Spec In Lab Brian Vidales MD BLOOD BANK LAB ORDER PRAKASH [facility] [place] [address] * ABO/Rh Typing (09/28/2021 9:58 AM EDT) ABORH Type A Pos [facility] Blood 09/28/2021 9:58 AM EDT 09/28/2021 10:50 AM EDT Narrative Resulting Agency Comment Spec In Lab Brian Vidales MD BLOOD BANK LAB ORDER PRAKASH [facility] [place] [address] * (ABNORMAL) Comprehensive metabolic panel (non-fasting) (09/28/2021 9:58 AM EDT) Glucose 214(H) 65 - 199 mg/dL [facility] Comment:Diabetes: >=200 mg/d L plus symptoms Blood Urea Nitrogen 8 8 - 18 mg/dL [facility] Creatinine 0.75 0.70 - 1.20 mg/dL [facility] Sodium 135 135 - 145 mmol/L [facility] Potassium 3.6 3.5 - 5.0 mmol/L [facility] Comment: Please note: ??Patients with WBC >100,000 may have falsely elevated Potassium levels. ??For accurate Potassium quantification in these patients send serum separator tube (gold top) for subsequent determinations. ??Contact the Clinical Chemistry Laboratory if there are any questions. Chloride 103 98 - 107 mmol/L [facility] Carbon Dioxide 19(L) 22 - 31 mmol/L [facility] Anion Gap 13 5 - 15 mmol/L [facility] Calcium 8.5 8.5 - 10.5 mg/dL [facility] Protein, Total 6.7 6.1 - 8.0 g/dL [facility] Albumin 4.1 3.2 - 5.2 g/dL [facility] Aspartate Aminotransferase 13 0 - 30 unit/L [facility] Alanine Aminotransferase 16 0 - 30 unit/L [facility] Alkaline Phosphatase 46 35 - 105 unit/L [facility] Bilirubin, Total 0.3 0.2 - 1.3 mg/dL [facility] Est Glomerular Filtration Rate 88 >=60 mL/min/1. 73 m?? [facility] Comment: This patient? s estimated [...] Vidales MD CHEMISTRY ORDERABLES Performing Organization Address [facility] Co de Phone Number [facility] [place] [address] * (ABNORMAL) Cancer Antigen 125 (09/28/2021 9:58 AM EDT) CA 125 41.7(H) <=38.1 unit/mL [facility] Comment: CA 125 Reference Interval ??Postmenopausal: 6.2 to 31.5 U/mL. ??Premenopausal: 6.9 to 45.9 U/mL. ??Pre and Postmenopausal subjects combined: 6.4 to 38.1 U/mL. Blood 09/28/2021 9:58 AM EDT 09/28/2021 10:23 AM EDT Narrative Resulting Agency Comment Spec In Lab Brian Vidales MD CHEMISTRY ORDERABLES Performing Organization Address City/[facility] Co de Phone Number [facility] [place] [address] documented in this encounter Visit Diagnoses Diagnosis Cigarette smoker Tobacco use disorder Adenocarcinoma of endometrium Malignant neoplasm of corpus uteri, except isthmus documented in this encounter Care Teams Dust Control Engineer Relationship Specialty Start Date End Date Pk Trevizo MD [address] [place] [id number] PCP - General Emergency Medicine 05/02/21 documented as of this encounter
--- OUTSIDE RECORDS SUMMARY | 2024-04-14 12:57 | XMS_ITS | Encounter Summary ---
Author Organization [facility] [place] [address] Care Team Providers Care Bacteriologist Pharmaceutical Name Role Phone Pk Trevizo MD Primary Care Provider [phone] Reason for Referral * Consultation (Routine) - Closed Specialty Diagnoses / Procedures Referred By Kit saravia Referred To Contact Gynecology Oncology Diagnoses Adenocarcinoma of endometrium Melba Regan CNM [facility] [place] [address] [facility] [place] [facility] [place] [facility] [address] [place] [address] Referral ID Status Reason Start Date Expiration Date V isits Requested Visits Authorized [id number] Closed Consult, Test & Treat 09/20/2021 09/20/2022 1 1 Encounter Details Date Type Department Care Team (Late st Contact Info) Description 09/20/2021 Orders Only Obstetrics [place] [address] Melba Regan CNM [facility] [place] [address] Adenocarcinoma of endometrium Social History Tobacco Use Types Packs/Day Years Used Date Smoking Tobacco: Every Day Cigarettes Smokeless Tobacco: Never Comments:varies to about 1-1 [...] Associated Diagnoses Orde r Schedule Referral to Gynecologic Oncology Outpatient Referral Routine Adenocarcinoma of endometrium Ordered: 09/20/2021 documented as of this encounter Visit Diagnoses Diagnosis Adenocarcinoma of endometrium Malignant neoplasm of corpus uteri, except isthmus documented in this encounter Care Teams Bacteriologist Pharmaceutical Relationship Specialty Start Date End Date Pk Trevizo MD [address] [place] [id number] PCP - General Emergency Medicine 05/02/21 documented as of this encounter
--- OUTSIDE RECORDS SUMMARY | 2024-04-14 12:57 | XMS_ITS | Encounter Summary ---
Author Organization [facility] Address [facility] [place] [address] Care Team Providers Care Bailing Machine Operator Name Role Phone Pk Trevizo MD Primary Care Provider [phone] Reason for Visit * Auth/Cert Specialty Diagnoses / Procedures Referred By Contac t Referred To Contact Diagnoses R ICA stenosis Procedures PRO THROMBOENDARTECTMY NECK, NECK INCIS @ENDARTERECTOMY, CAROTID, VERTEBRAL,SUBCLAVIAN W\WO PATCH GRAFT (WRVU 21.16) Referral ID Status Reason Start Date Expiration Date Visits Re quested Visits Authorized [id number] 1 1 Encounter Details Date Type Department Care Team (Latest Contact Info) Description 09/15/2021 1:00 PM EDT - 09/16/2021 2:10 PM EDT Hospital Encounter [address] [place] [address] Mickey Magallon MD [facility] [place] [address] Stenosis of carotid artery, unspecified laterality; Pre-op testing; Stenosis of right carotid artery greater than 50% Discharge Disposition: Home Social History Tobacco Use [...] Sign Reading Time Taken Comments Blood Pressure 159/85 09/16/2021 8:04 AM EDT Pulse 98 09/16/2021 4:40 AM EDT Temperature 37.1 ??C (98.7 ??F) 09/16/2021 8:04 AM ED T Respiratory Rate 17 09/16/2021 8:04 AM EDT Oxygen Saturation 95% 09/16/2021 8:04 AM EDT Inhaled Oxygen Concentration - - Weight 101.3 kg (223 lb 5.2 oz) 09/16/2021 5:04 AM EDT Height 165.1 cm (5' 5) 09/15/2021 1:55 PM EDT Body Mass Index 37.16 09/15/2021 1:55 PM EDT documented in this encounter Discharge Summaries * Sara Barron APRN - 09/16/2021 9:04 AM EDT Images from the original note were not included. Inpatient - Discharge Summary Patient Name: Geeta Gonzalez Patient Age: 56 y.o. Birthdate: 1965 Admit date: 09/15/2021 Discharge date and time: 09/16/2021 Attending Physician: Mickey Magallon MD Discharging Provider: Sara Barron APRN Discharging Service: Vascular Surgery Operations/Major Procedures: 09/15/2021: Right carotid endarterectomy and patch angioplasty Active Hospital Problems: Active Hospital Problems Diagnosis ??? Stenosis of right carotid artery greater than 50% Resolved Hospital Problems No resolved problems to display. Active Non Hospital Problems: Active Non-Hospital Problems Diagnosis ??? Hypertension ??? Obesity ??? Abnormal vaginal bleeding with endometrial thickness greater than 5 mm present on transvaginal ultrasound in postmenopausal patient History of Presentation: 56 year old woman who was noted to have a carotid bruit and further workupwas notable for severe right ICA stenosis. No recent symptoms, TIAs, amaurosis or strokes. On chartreview h/o stroke in March 2021 with L CHANCE occlusion. In March she presented with left arm weakness and workup was notable for old right parietal stroke and MRI was notable for multiple acute infarcts throughout the right frontal and parietal lobes in watershed distribution. Active smoker 1ppd. On a statin and ASA. Hospital Course: In surgery, RIGHT carotid endarterectomy and patch angioplasty performed. Stump pressure measured and SBP>80 mmHg so no shunt used. Completion duplex with excellent doppler waveforms and appearance on B mode. Neurologically intact at case completion. Pt admitted for postop monitoring. Pt's recovery went well with good PO intake, adequate output following alberto removal and minimal pain at incision and frontal H/A, relieved with PO tylenol. Pt remains AOx3, neuro intact. Pt's right neck incision is c/d/i, open to air. She ambulates and completes ADLs independently and is medicallycleared for d/c to home. Pt will f/u in 1 month with duplex. Day of discharge exam: BP 159/85 (BP Location (NBP): Left arm, Patient Position: Sitting) Pulse 98 Temp 37.1 ??C (98.7??F) (Oral) Resp 17 Ht 165.1 cm (5' 5) Wt 101.3 kg (223 lb 5.2 oz) SpO2 95% BMI 37.16 kg/m?? General: NAD, resting comfortably HEENT: PERRL, anicteric sclerae CVS: Regular rate Pulm: Breathing comfortably on RA Abd: soft, non tender, non distended Ext: RLE: No edema. Skin warm and pink. No tissue loss. Brisk capillary refill LLE: No edema. Skin warm and pink. No tissue loss. Brisk capillary refill Neuro: CN 2-12 grossly intact, nonfocal, moving all extremities. Sensation intact in extremities bilaterally symmetric. Motor function intact in extremities, bilaterally symmetric. Skin: Right neck incision c/d/i, open to air, without s/sx of infection or hematoma. Important Studies and Lab Data: Labs: N/A Discharge Condition: Good Discharge to: Home Future Appointments and Orders Future Appointments and Orders Future Appointments Provider Department Dept Phone 09/18/2021 10:30 AM PRE ANESTHESIA, CONSULT Same Day at [facility] Arrive at: Home [phone] To view instructions for your video visit, click here, or visit this website: [email or web address] If you have not previously downloaded the DSlated patient portal software, Titansan, or the ZoWerdsmith mai, please do so by clicking one of these links below or searching in your device's mai store. For all desktops/laptops; for Android devices; for Apple/iOS devices FAQs: Join Video Visit button not connecting? - This may be due to pop-up blockers. - Click this link to see: How to Disable Pop-Up Block for myD-H Video Visits Zoom asking for a meeting password? - Exit out of the Zoom program and try the link again 09/21/2021 1:40 PM Tracee Cobos MD Obstetrics and Gynecology at [facility] Arrive at: Trailer Sections Assembler Area Future Orders Complete By Expires Carotid Duplex, Unilateral [VAS2 Custom] 10/17/2021 (Approximate) 09/16/2022 Process Instructions: There is no in-house vascular warehouse laborer available on weeknights (5pm-8am), weekends, or holidays. IF THIS IS A REQUEST FOR AN EMERGENT STUDY DURING THOSE HOURS, please have the senior provider responsible for the patient page the Vascular Surgery Fellow/Senior Resident operator receptionist to discuss options. Scheduling Instructions: Questions: Laterality: Right Indication for study/signs & symptoms: s/p R CEA Question to be answered: patency Preferred location?: [facility] Clinics Anticoagulation & Antiplatelet: Anticoagulation: None indicated Antiplatelet: Agent: ASA Indication: ASCVD Intended Duration: Retirement For questions regarding these medications, please contact: PCP Discharge Medications: Your Medications New Medications Dose Details atorvastatin 80 mg Tab Commonly known as: Lipitor Take 1 tablet by mouth every evening. 80 mg Quantity: 90 tablet Refills: 3 nicotine polacrilex 4 mg Lozg Commonly known as: Commit Place 1 lozenge inside cheek every hour as needed for Smoking cessation. 4 mg Quantity: 100 each Refills: 0 Continued medications with new dosing Dose Details * Nicotrol 10 mg Crtg Inhale into the lungs. Generic drug: nicotine What changed: Another medication with the same name was added. Make sure you understand how and when to take each. Refills: 0 * nicotine 21 mg/24 hr Pt24 Commonly known as: Nicoderm CQ Change 1 patch on the skin daily. What changed: You were already taking a medication with the same name, and this prescription was added. Make sure you understand how and when to take each. 1 patch Quantity: 28 patch Refills: 0 * This list has 2 medication(s) that are the same as other medications prescribed for you. Read thedirections carefully, and ask your doctor or other care provider to review them with you. Continued medications, unchanged Dose Details acetaminophen 325 mg Cap Take by mouth. Refills: 0 aspirin 81 mg Chew Take 81 mg by mouth daily. 81 mg Refills: 0 medroxyPROGESTERone 5 mg Tab Commonly known as: PROVERA TAKE ONE TABLET BY MOUTH TWICE A DAY Refills: 0 norethindrone 5 mg Tab Commonly known as: Aygestin TAKE 2 TABLETS BY MOUTH TWICE A DAY Refills: 0 Updated Allergies/ADRs: No Known Allergies Instructions Given to Patient at Discharge: Patient Instructions You were admitted to the hospital after having a right carotid endarterectomy. This operation went very well. Dr. Maglalon will want you to be seen in approximately one month with a carotid ultrasound of your neck first. This will be scheduled and sent to you in the mail. If for some reason you don'treceive this in a week, please call our office at the number below as your follow-up is very important. Call your doctor if: Any change in vision, numbness or inability to move any extremity, inability to speak and or a headache unresponsive to Tylenol. Activity level: up as tolerated but take it easy for a week or so. Diet: regular Driving: ok after a week if you feel perfect and you were driving before Shower/Bath: showering or bath is ok Wound Care: wash with soap and water, pat dry You should see your Primary Care Physician within 1-2 weeks for a post hospital follow-up. For any problems or questions please call our office at [phone] For issues on weeknights after 5pm and weekends please call [phone] and ask for the Vascular Fellow operator receptionist. Sara Barron APRN Department of Vascular Surgery documented in this encounter Discharge Instructions * Patient Instructions* Sara Barron APRN - 09/16/2021 7:57 AM EDT You were admitted to the hospital after having a right carotid endarterectomy. This operation went very well. Dr. Magallon will want you to be seen in approximately one month with a carotid ultrasound of your neck first. This will be scheduled and sent to you in the mail. If for some reason you don'treceive this in a week, please call our office at the number below as your follow-up is very important. Call your doctor if: Any change in vision, numbness or inability to move any extremity, inability to speak and or a headache unresponsive to Tylenol. Activity level: up as tolerated but take it easy for a week or so. Diet: regular Driving: ok after a week if you feel perfect and you were driving before Shower/Bath: showering or bath is ok Wound Care: wash with soap and water, pat dry You should see your Primary Care Physician within 1-2 weeks for a post hospital follow-up. For any problems or questions please call our office at [phone] For issues on weeknights after 5pm and weekends please call [phone] and ask for the Vascular Fellow operator receptionist. documented in this encounter Medications at Time of Discharge Medication Sig Dispensed Refills Start Date End Date atorvastatin (Lipitor) 80 mg Tablet Take 1 tablet by mouth every evening. 90 tablet 3 09/16/2021 aspirin 81 mg Tablet, Chewable Take 81 mg by mouth daily. nicotine polacrilex (Commit) [address] 1 lozenge inside cheek every hour as needed for Smoking cessation. 100 each 09/16/2021 10/20/2021 nicotine (Nicoderm CQ) 21 mg/24 hr Patch 24 hr Change 1 patch on the skin daily. 28 patch 09/16/2021 11/06/2022 medroxyPROGESTERone (PROVERA) 5 mg Tablet TAKE ONE TABLET BY MOUTH TWICE A DAY 03/02/2021 10/20/2021 norethindrone (Aygestin) 5 mg Tablet TAKE 2 TABLETS BY MOUTH TWICE A DAY 03/25/2021 10/17/2021 nicotine (Nicotrol) 10 mg Cartridge Inhale into the lungs. 03/25/2021 11/06/2022 acetaminophen 325 mg Capsule Take by mouth. 10/20/2021 documented as of this encounter Progress Notes * Thais Dong RN - 09/16/2021 12:41 PM EDT Pt discharged home. IV removed catheter intact. AVS reviewed with pt. Pt reminded multiple times that she had a nicotine patch on and the effects of continuing to smoke while wearing the nicotine patch. Pt walked to main entrance with this engineering writer. This engineering writer waited outside with pt while waiting for daughter to arrive. * Holly Lizarraga MD - 09/15/2021 7:22 PM EDT Surgery Post Op Check Geeta Gonzalez is a 56 y.o. female status post rihg carotid endarterectomy and patch angioplasty ?? S: Endorsing mild headache which she says is similar she had to the headaches she had leading up toher surgery. No nausea/vomiting, chest pain, SOB, pain well controlled, offers no complaints. O: Temp: [37 ??C (98.6 ??F)] Heart Rate: [77-93] Resp: [15-28] BP: (121-185)/(61-97) SpO2: [92 %-97 %] Heart Rate from SpO2: [77 bpm-92 bpm] I/O last 3 completed shifts: In: 1257 [I.V.:1257] Out: 825 [Urine:750; Emesis/NG output:50; Blood:25] No intake/output data recorded. UOP since OR: 350 Physical Exam General: NAD, resting comfortably HEENT: PERRL, anicteric sclerae CVS: Regular rate Pulm: Breathing comfortably on RA Abd: soft, non tender, non distended Ext: RLE: No edema. Skin warm and pink. No tissue loss. Brisk capillary refill LLE: No edema. Skin warm and pink. No tissue loss. Brisk capillary refill Neuro: CN 2-12 grossly intact, nonfocal, moving all extremities. Sensation intact in extremities bilaterally symmetric. Motor function intact in extremities, bilaterally symmetric. AP Geeta Gonzalez is a 56 y.o. female status post right carotid endarterectomy and patch angioplasty ??currently in stable condition and recovering well. Will give tylenol and diet to see if alleviates headache. - pain well controlled - hemodynamically stable - UOP adequate Holly Lizarraga MD Vascular Surgery 09/15/21 * Alyson Porter RN - 09/15/2021 5:39 PM EDT Hand off received from Casandra Munguia RN. 183 PACU D/C criteria met 1999 Hand off to DORENE Arevalo * Casandra Munguia RN - 09/15/2021 5:01 PM EDT 1650 Patient arrived from OR in bed with anesthesia and service in attendance. Monitors applied, alarms set per protocol and audible. Pt co nausea. Brief period of dry heaving then resolved. 1710 phenergan given per service for nausea. Pt will small amount yellow emesis 1725 labetolol given for htn. Report given to Alyson CATHERINE documented in this encounter H&P Notes * Faraz Ramirez MD - 09/15/2021 1:39 PM EDT Vascular Surgery History and Physical HPI: Geeta Gonzalez is a 56 year old woman who was noted to have a carotid bruit and further workupwas notable for severe right ICA stenosis. No recent symptoms, TIAs, amaurosis or strokes. On chartreview h/o stroke in March 2021 with L CHANCE occlusion. In March she presented with left arm weakness and workup was notable for old right parietal stroke and MRI was notable for multiple acute infarcts throughout the right frontal and parietal lobes in watershed distribution. Active smoker 1ppd. On a statin and ASA. Review of Systems: A full review encompassing at least 10 organ systems including general, neuro, pulm, cardiac, GI, , MSK, Endo, and psych was negative other than that listed in the HPI. Past Medical History: Past Medical History: Diagnosis Date ??? Abnormal vaginal bleeding with endometrial thickness greater than 5 mm present on transvaginal ultrasound in postmenopausal patient ??? Hypertension ??? Obesity ??? Tobacco use disorder Past Surgical History: No past surgical history on file. Functional Status/Social Hx: Lives at home Family Hx: Negative for Thrombosis, Bleeding Disorders Medications: No current facility-administered medications on file prior to encounter. Current Outpatient Medications on File Prior to Encounter Medication Sig Dispense Refill ??? norethindrone (Aygestin) 5 mg Tablet TAKE 2 TABLETS BY MOUTH TWICE A DAY ??? medroxyPROGESTERone (PROVERA) 5 mg Tablet TAKE ONE TABLET BY MOUTH TWICE A DAY ??? nicotine (Nicotrol) 10 mg Cartridge Inhale into the lungs. ??? acetaminophen 325 mg Capsule Take by mouth. Allergies: Patient has no known allergies. Physical Exam: Temp: -- Heart Rate: -- Resp: -- BP: -- SpO2: -- Heart Rate from SpO2: -- General: NAD, resting comfortably HEENT: Anicteric sclerae CVS: Regular rate Pulm: Equal chest rise bilaterally Abd: Soft, non tender, non distended Ext: RLE: No edema. Skin warm and pink. No tissue loss. Brisk capillary refill. LLE: No edema. Skin warm and pink. No tissue loss. Brisk capillary refill. Neuro: Grossly nonfocal, moving all extremities. Labs: Recent Labs 09/15/21 1317 WBC 10.8* HGB 11.9 HCT 36.5 PLATELET 373* No results for input(s): NA, K, CL, CO2, BUN, CREATININE, PHOS, CALCIUM in the last 72 hours. Studies/Imaging: Carotid Duplex 05/02/2021 Findings: ?? ICA Proximal, Right ?PSV (cm/s): 433 ?EDV (cm/s): 153 ?ICA/CCA: 6.7 ?Plaque Structure: Echolucent ?Plaque Surface: Irregular ?%Stenosis: 70-99% ICA Distal, Right ?PSV (cm/s): 94 ?EDV (cm/s): 22 ?ICA/CCA: 1.4 CCA Distal, Right ?PSV (cm/s): 65 ?EDV (cm/s): 11 ?%Stenosis: <50% CCA Proximal, Right ?PSV (cm/s): 85 ?EDV (cm/s): 13 External Carotid Artery, Right ?PSV (cm/s): 102 ?EDV (cm/s): 10 ?%Stenosis: <50% Vertebral, Right ?PSV (cm/s): 72 ?EDV (cm/s): 21 ?Direction of Flow: Antegrade ICA Proximal, Left ?PSV (cm/s): 90 ?EDV (cm/s): 31 ?ICA/CCA: 1.2 ?Plaque Structure: Echogenic ?Plaque Surface: Irregular ?%Stenosis: <15% ICA Distal, Left ?PSV (cm/s): 114 ?EDV (cm/s): 37 ?ICA/CCA: 1.5 CCA Distal, Left ?PSV (cm/s): 78 ?EDV (cm/s): 23 ?%Stenosis: Minimal CCA Proximal, Left ?PSV (cm/s): 118 ?EDV (cm/s): 26 External Carotid Artery, Left ?PSV (cm/s): 132 ?EDV (cm/s): 6 ?%Stenosis: <50% Vertebral, Left ?PSV (cm/s): 58 ?EDV (cm/s): 20 ?Direction of Flow: Antegrade ? Interpretation: ?? RIGHT: There is irregular plaque in the common carotid artery causing 25-35% stenosis by electronic calipers. There is echolucent, irregular plaque in the proximal internal carotid artery causing 70-99% stenosis when compared to the more distal internal carotid artery. The bifurcation level is in the mid neck. ?? LEFT: A thin layer of circumferential plaque is present in the common carotid artery causing minimal stenosis. There is irregular plaque in the proximal internal carotid artery causing <15% stenosis when compared to the more distal internal carotid artery. The bifurcation level is in the mid neck. ?? Vertebral Artery Data: ?? Patent vertebral arteries with normal antegrade Doppler waveforms and velocities bilaterally. CTA R ICA stenosis. Top of lesion at the bottom of C2. Assessment and Plan: Geeta Gonzalez is a 56 year old woman with 70-99% RIGHT ICA stenosis with PSV of 433, asymptomatic.Was symptomatic in March 2021 with multiple acute infarcts. Plan for right carotid endarterectomy Yash Ramirez Vascular Surgery Pager #[phone] documented in this encounter Miscellaneous Notes * Op Note - Faraz Ramirez MD - 09/15/2021 5:[address] [facility] Operative Note Patient Name: Geeta Gonzalez : [id number] MR#: [id number] Case Date: 09/15/2021 Surgeon: Surgeon(s) and Role: * Mickey Magallon MD - Primary * Faraz Ramirez MD - Resident Preoperative diagnosis: R ICA stenosis Postoperative diagnosis: R ICA stenosis Procedure(s) (LRB): @ENDARTERECTOMY, CAROTID, VERTEBRAL,SUBCLAVIAN W\WO PATCH GRAFT (WRVU 21.16) (Right) Procedures: 1. RIGHT carotid endarterectomy and patch angioplasty Findings: RIGHT carotid endarterectomy and patch angioplasty performed. Stump pressure measured andSBP>80 mmHg so no shunt used. Completion duplex with excellent doppler waveforms and appearance on B mode. Neurologically intact at case completion. Anesthesia: General Estimated Blood Loss: 25 mL Heparin: 17,000 units Protamine: 50 mg Specimens removed during surgery: None IV Fluids: 1,000 mL Urine: 600 mL Drains: None Surgical Closure: Primary Closure - skin incision is completely closed without any wires, bev, drains or other devices Disposition: awakened from anesthesia, extubated and taken to the recovery room in a stable condition, having suffered no apparent untoward event. Condition: doing well without problems (Please see the Surgical Encounter Summary for any Implant and Specimen details pertinent to this patient.) HPI/Surgical Indications: 56 year old woman with 70-99% RIGHT ICA stenosis with PSV of 433, asymptomatic. Was symptomatic in March 2021 with multiple acute infarcts. Plan for right carotid endarterectomy. Procedure Description: After informed consent was obtained the patient was brought back to the operating room and placed supine on the OR table. General anesthesia was induced and the patient was intubated with an ETT. Additional support lines (alberto, arterial line, PIVs) were placed. Preoperative antibiotics were given. A timeout was performed. Attention was then turned to the patient's right neck, which was prepped and draped in the standard sterile fashion. A longituidnal incision was made along the anterior border of the sternocleidomastoid. The subcutaneous tissue and platysma were divided using a combination of blunt, sharp, and electrocautery dissection. The sternocleidomastoid and internal jugular vein were retracted laterally to expose the bifurcation. The common carotid artery, external carotid artery, superior thyroid artery and internal carotid artery were each circumferentially dissected and encircled with vessel loops. The vagus and hypoglossal nerves were identified and preserved. Satisfied with our exposure, systemic heparin was give n. A stump pressure was measured and found to be suitable. Next, the internal, common and external carotid arteries were clamped. An arteriotomy was performed in a longitudinal fashion with an 11 blade. This was extended onto the common carotid artery proximally and the internal carotid artery distally using Pott's scissors. Using a Negley elevator, endarterectomy of the common carotid and internal carotid arteries was performed. The distal internal carotid artery plaque was feathered off, leaving a smooth endpoint. Eversion endarterectomy of the external carotid artery was performed and the carotid plaque was removed. Once this was removed, the endarterectomy site was inspected for loose arterial wall tissue that was removed with fine forceps. The endarterectomy endpoints were inspected to ensure that they were adequate. Once we were satisfied with our endarterectomy, bovine pericardialpatch angioplasty was performed in a standard fashion with 6-0 Prolene. Once this was nearly complete, the arteries were flushed to expel any air or debris. The patch angioplasty was then completed, and the carotid artery was re-perfused. Completion duplex ultrasonography was performed with the above findings. Once we were satisfied with our results on ultrasound, protamine was administered to reverse the heparin. Hemostasis was achieved with thrombin-soaked gelfoam. The wound was then closed by reapproximating the sternocleidomastoid muscle in one layer followed by the platysma in a second layer. Skin was closed with 4-0 Monocryl followed by Dermabond and then a dry sterile dressing. The patient was awoken from anesthesia, noted to be neurologically intact and transferred to the RecoveryRoom in stable condition. Dr. Magallon, was present and scrubbed for the entire procedure. Surgical Infection Prevention Bundle Used? No Implants: Implant Name Type Inv. Item Serial No. Frame Assembler Lot No. LRB No. Used Action GRAFT SOFT TISSUE [id number] SQUARE BOVINE XENOSURE ([id number]) - [id number] IMPLANTS GRAFT SOFT TISSUE [id number] SQUARE BOVINE XENOSURE ([id number]) 0000 [employer] [id number] Right 1 Implanted Associated attestation - Mickey Magallon MD - 09/18/2021 4:17 PM EDT Attestation: Case Date: 09/15/2021 I was present and I participated during the entire procedure (does not need to include opening and closing). MICKEY MAGALLON MD 09/18/2021 documented in this encounter Plan of Treatment Not on file documented as of this encounter Procedures Procedure Name Priority Date/Time Associated Diagnosis Comments RAPID COVID-19 PCR ([facility]) Routine 09/15/2021 4:30 PM EDT CAROTID DUPLEX, UNILATERAL Routine 09/15/2021 3:14 PM EDT Stenosis of carotid artery, unspecified laterality BLOOD GAS ARTERIAL POC Routine 3:12 PM EDT Thromboendartectmy Neck, Neck Incis ([id number]) 09/15/2021 2:14 PM EDT Stenosis of carotid artery, unspecified laterality Pre-op testing EKG 12-LEAD Routine 09/15/2021 1:44 PM EDT Stenosis of carotid artery, unspecified laterality Pre-op testing HC HEMOGRAM STAT 09/15/2021 1:17 PM EDT Stenosis of carotid artery, unspecified laterality Pre-op testing HC PREALBUMIN, SERUM STAT 09/15/2021 1:17 PM EDT Stenosis of carotid artery, unspecified laterality Pre-op testing BASIC METABOLIC PANEL STAT 09/15/2021 1:17 PM EDT Stenosis of carotid artery, unspecified laterality Pre-op testing ENDART, CAROTID, VERTEBRAL,SUBCLAVIAN W\WO PATCH GRAFT, BY NECK INCIS Routine 09/15/2021 1:13 PM EDT Stenosis of carotid artery, unspecified laterality Pre-op testing IMPLANTABLE DEVICES SCAN 022 12:00 AM EDT documented in this encounter Results * COVID-19 PCR (09/15/2021 4:30 PM EDT) Pathologist [facility] SARS-CoV-2 RNA (Rapid) Not Detected Not Detected [facility] Comment: This result should be interpreted in combination with the clinical observations, patient history and epidemiological information. For testing of asymptomatic individuals, assay performance characteristics and clinical utility have not been evaluated. Testing for SARS-CoV-2 (Severe acute respiratory syndrome coronavirus 2, formerly known as 2019 novel coronavirus or 2019-nCoV) to aid in the diagnosis of COVID-19 is performed using the Simplexa COVID-19 Direct Assay by [employer] as authorized by the FDA issued Emergency Use Authorization (EUA). This assay is intended for In-vitro Diagnostic (IVD) use with nasopharyngeal swabs collected from individuals meeting the CDC criteria for testing. The assay is performed based on the instructions for use and additional guidance provided by the FDA. Testing is performed in the Microbiology Laboratory within the Department of Pathology and Laboratory Medicine at [facility], certified under the Clinical Laboratory Improvement Amendments of 1988 (CLIA), 42 U.S.C. section 263a, to perform high complexity tests. Assay performance has been verified according to clinical laboratory regulatory requirements. Test results are provided above. A result of Not Detected indicates that the viral RNA target is not present but does not preclude SARS-CoV-2 infection. False negative results may occur if a specimen is improperly collected, transported or handled; if amplification inhibitors are present; or if inadequate numbers of viral particles are present in the specimen. A result of Detected suggests a current or recent infection and the patient is presumed to be infected. Positive and negative predictive values for this test are highly dependent on disease prevalence. A result of Invalid indicates the inability to conclusively determine the presence or absence of SARS-CoV-2 RNA in the sample which can be due to a variety of factors. Recollection is recommended in the case of an invalid result. CDC COVID-19 criteria for testing on human specimens and clinical management guidance information are available at the CDC Coronavirus Disease 2019 (COVID-19) webpage under Information for Healthcare Professionals (https://www.cdc.gov/coronavirus/2019-ncov/hcp/index.html). Additional information about this and other EUA tests can be found in provider and patient fact sheets at the following FDA website: https://www.fda.gov/medical-devices/ovnmbrvocuy-ytdcrkl-3823-irgan-08-kqpjvwuym- use-a iahfshwyytcwe-mkfcpaz-xinzypv/lmzvy-jkxcfrkseol-awhk SARS-CoV-2 Source LINE INSTALLER Swab [facility] Nasopharyngeal Swab 09/16/19 4:30 PM EDT 09/15/2021 5:36 PM EDT Comment:Symptoms->Surveillan ce Narrative Resulting Agency Comment Spec In Lab Mickey Magallon MD MICROBIOLOGY - GENER AL ORDERABLES [facility] [place] [address] * Carotid Duplex, Unilateral (09/15/2021 3:14 PM EDT) VB Text Report Department: Vascular Surgery Lab Patient: [id number] (GEETA GONZALEZ) CPT: 08787 Referring Physician: MICKEY MAGALLON ?? Indications: intraop s/p RIGHT CEA Findings: Right ?PSV (cm/s) ??EDV (cm/s) ??ICA/CCA ??%Stenosis ?? ICA Proximal ? 64 ?11 ?1.2 ??<15% ? CCA Distal ? 52 ? 9 ? External Carotid Artery ?40 ? 0 ? Interpretation: RIGHT: Widely patent carotid bifurcation with no evidence of flap or residual stenosis. Significantly improved compared to the preoperative exam. Previous Carotid Studies: Date ?RIGHT ICA Stenosis ??PSV ?? Ratio ?? LEFT ICA Stenosis ?? PSV ?? Ratio ? 70-99% ? 433 ?? 6.70 ? <15% ? 90 ?1.50 Current Exam ? <15% ? 64 ?1.20 ? n/a ?n/a ?? n/a Electronically Signed by: MICKEY MAGALLON on 2021-09-19 10:15:52 AM VAS[facility] VB Text Report End of Report [facility] 09/15/2021 3:14 PM EDT Mickey Magallon MD VASCULAR ORDERABLES [facility] * (ABNORMAL) BLOOD GAS 2 ARTERIAL (09/15/2021 3:12 PM EDT) pH, Arterial 7.26(Criti thea) 7.35 - 7.45 [facility] PCO2, Arterial 47(H) 35 - [address] [facility] PO2, Arterial 147(H) 85 - [address] [facility] Bicarbonate, Arterial 20.6 20.0 - 26.0 mmol/L [facility] Base Excess, Arterial -6.5(L) -3.0 - 3.0 mmol/L [facility] Hgb Blood Gas 11.1(L) 11.7 - 15.5 g/dL [facility] Oxyhemoglobin, Arterial 89.9(L) 94.0 - 97.0 % [facility] Carboxyhemoglob in, Arterial 9.7 % [facility] Comment: Nonsmokers: 0.5-1.5% COHB Smokers: Variable, but usually less than 10% Toxic: 20-30% COHB Lethal: Greater than 60% COHB Methemoglobin, Arterial 0.1 <=1.5 % [facility] Na Whole Blood 132(L) 135 - 145 mmol/L [facility] K Whole Blood 3.8 3.5 - 5.0 mmol/L [facility] Comment: Please note: Patients with WBC >100,000 may have falsely elevated Potassium levels. Contact the Clinical Chemistry Laboratory if there are any questions. ICa Whole Blood 1.11(L) 1.15 - 1.33 mmol/L [facility] Comment: Note: ??Total bilirubin higher than 20 mg/dL may lead to falsely low ionized calcium. CL Whole Blood 106 98 - 107 mmol/L [facility] Gluc Whole Bld 127 65 - 199 mg/dL [facility] Comment:Diabetes: >=200 mg/d L plus symptoms. Lactate WB 1.2 0.5 - 2.2 mmol/L [facility] Blood 09/15/2021 3:12 PM EDT 09/15/2021 3:12 PM EDT Mickey Magallon MD POINT OF CARE TEST O RDERABLES Performing Organization Address [facility] Co de Phone Number [facility] [place] [address] * EKG 12 Lead (09/15/2021 1:44 PM EDT) Ventricular rate 87 BPM MUSE SYSTEM Atrial Rate 87 BPM MUSE SYSTEM P-R Interval 142 ms MUSE SYSTEM QRS Duration 90 ms MUSE SYSTEM Q-T Interval 362 ms MUSE SYSTEM QTC Calculated (Bezet) 435 ms MUSE SYSTEM Calculated P [place] 44 degrees MUSE SYSTEM Calculated R [place] -12 degrees MUSE SYSTEM Calculated T [place] 59 degrees MUSE SYSTEM INTERPRETATION Normal sinus rhythm Minimal voltage criteria for LVH, may be normal variant ( [place] product ) Poor R wave progression Abnormal ECG No previous ECGs available Confirmed by MD WILMER, [place] ([id number]) on 09/15/2021 2:09:45 PM MUSE SYSTEM 09/15/2021 1:44 PM EDT 09/15/2021 2:09 PM EDT Mickey Magallon MD ECG ORDERABLES Performing Organization Address [facility] Co de Phone Number MUSE SYSTEM * (ABNORMAL) Hemogram (09/15/2021 1:17 PM EDT) White Blood Cell 10.8(H) 4.0 - 9.5 x10(3)/ L [facility] Red Blood Cell 4.13 4.00 - 5.21 x10(6)/ L [facility] Hemoglobin 11.9 11.7 - 15.5 g/dL [facility] Hematocrit 36.5 35.7 - 45.8 % [facility] Mean Cell Volume 88.4 82.6 - 94.[address] [facility] Mean Cell Hemoglobin 28.8 27.1 - 32.[address] [facility] Mean Cell Hemoglobin Concentration 32.6 31.7 - 35.0 g/dL [facility] Platelet 373(H) 145 - 357 x10(3)/mc L [facility] RDW Standard Deviation 57.1(H) 37.0 - 46.[address] [facility] RDW coefficient of variation 17.6(H) 11.5 - 14.1 % [facility] Mean Platelet Volume 11.5 7.6 - 12.[address] [facility] NRBC% auto 0.0 % [facility] NRBC Absolute 0.000 0.000 - 0.000 x10(3)/mc L [facility] Blood 09/15/2021 1:17 PM EDT 09/15/2021 1:23 PM EDT Narrative Resulting Agency Comment Spec In Lab Sara Barron APRN HEMATOLOGY ORDERABLE S [facility] [place] [address] * (ABNORMAL) Basic Metabolic Panel (non-fasting) (09/15/2021 1:17 PM EDT) Glucose 134 65 - 199 mg/dL [facility] Comment:Diabetes: >=200 mg/d L plus symptoms Blood Urea Nitrogen 8 8 - 18 mg/dL [facility] Creatinine 0.72 0.70 - 1.20 mg/dL [facility] Sodium 133(L) 135 - 145 mmol/L [facility] Potassium 3.9 3.5 - 5.0 mmol/L [facility] Comment: Please note: ??Patients with WBC >100,000 may have falsely elevated Potassium levels. ??For accurate Potassium quantification in these patients send serum separator tube (gold top) for subsequent determinations. ??Contact the Clinical Chemistry Laboratory if there are any questions. Chloride 101 98 - 107 mmol/L [facility] Carbon Dioxide 17(L) 22 - 31 mmol/L [facility] Anion Gap 15 5 - 15 mmol/L [facility] Calcium 8.5 8.5 - 10.5 mg/dL [facility] Est Glomerular Filtration Rate 93 >=60 mL/min/1. 73 m?? [facility] Comment: This patient? s estimated glomerular filtration rate (eGFR) is between 93 mL/min/1.73 m2 (patients with less muscle mass) and 108 mL/min/1.73 m2 (patients with more muscle mass) [...] and symptoms in addition to eGFR. Blood 09/15/2021 1:17 PM EDT 09/15/2021 1:23 PM EDT Narrative Resulting Agency Comment Spec In Lab Sara Barron APRN CHEMISTRY ORDERABLES Performing Organization Address [facility] Co de Phone Number [facility] [place] [address] * (ABNORMAL) Prealbumin (09/15/2021 1:17 PM EDT) Prealbumin 48(H) 20 - 40 mg/dL [facility] Comment: Prealbumin levels are generally lower in the pediatric population; adult concentrations are usually attained near puberty. Blood 09/15/2021 1:17 PM EDT 09/15/2021 1:23 PM EDT Narrative Resulting Agency Comment Spec In Lab Sara Barron APRN CHEMISTRY ORDERABLES Performing Organization Address City/[facility]/ZIP Co de Phone Number [facility] [place] [address] * SCAN DOC: IMPLANTABLE DEVICES (09/15/2021 12:00 AM EDT) Unknown MEDIA MGR SCAN EXT O RDR/RSLT documented in this encounter Visit Diagnoses Diagnosis Stenosis of carotid artery, unspecified laterality Pre-op testing Preoperative examination, unspecified Stenosis of right carotid artery greater than 50% Stenosis of right carotid artery greater than 50% documented in this encounter Admitting Diagnoses Diagnosis Stenosis of right carotid artery greater than 50% documented in this encounter Administered Medications Inactive Administered Medications - up to 3 most recent administrations Medication Order MAR Action Action Date Dose Rate Site acetaminophen (Tylenol) tablet 1,000 mg 1,000 mg, Oral, EVERY 6 HOURS SCHEDULED, First dose on Sat09/15/21 at 1815, Until Discontinued, Maximum dose of acetaminophen is 4000 mg from all sources in 24 hours. When ordered for pain, acetaminophen should be given even when other ordered pain medications are indicated., Routine Given 09/16/2021 5:42 AM EDT 1,000 mg Given 09/15/2021 11:57 PM EDT 1,000 mg Given 09/15/2021 8:25 PM EDT 1,000 mg aspirin chewable tablet 81 mg 81 mg, Oral, DAILY, First dose on Sat09/15/21 at 1815, Until Discontinued, Routine Given 09/16/2021 9:48 AM EDT 81 mg Given 09/15/2021 8:25 PM EDT 81 mg atorvastatin (Lipitor) tablet 80 mg 80 mg, Oral, EVERY EVENING, First dose on Sat09/15/21 at 2245, Until Discontinued, Routine Given 09/15/2021 11:45 PM EDT 80 mg ceFAZolin (Ancef) 2 g in dextrose 5% 100 mL infusion 2 g, Intravenous, EVERY 8 HOURS, 3 doses, First dose on Sat09/15/21 at 2230, Last dose on Sat09/16/21 at 1430, Administer over 30 Minutes, Redose after 4 hours., Recovery (Recovery-Hospital Unit), Indication for (Active or Suspected): Prophylaxis New Bag 09/16/2021 5:42 AM EDT 2 g 200 mL/ hr New Bag 09/15/2021 10:08 PM EDT 2 g 200 mL/hr labetaloL (Normodyne) (5 mg/mL) injection solution 10 mg 10 mg, Intravenous, EVERY 1 HOUR PRN, Starting on Sat09/15/21 at 1725, Until Sat09/16/21 at 1610, High Blood Pressure, for SBP > 150, hold for HR < 60 for maximum of 2 doses, then mark TURNRE, May repeat 10 mg in 15 minutes once if SBP goal not achieved, Routine Given 09/15/2021 11:58 PM EDT 10 mg Given 09/15/2021 5:28 PM EDT 10 mg lactated ringers infusion 1,000 mL, at 100 mL/hr, Intravenous, CONTINUOUS, Starting on Sat09/15/21 at 1345, Until Sat09/15/21 at 1929, Day of Surgery (Day of Procedure) Restarted 09/15/2021 2:14 PM EDT New Bag 09/15/2021 2:08 PM EDT 1,000 mLs 100 mL/hr lactated ringers infusion 100 mL/hr, Intravenous, CONTINUOUS, Starting on Sat09/15/21 at 1815, Until Sat09/16/21 at 0014 New Bag 09/15/2021 6:28 PM EDT 100 mL/hr 100 mL/hr nicotine (Nicoderm CQ) 21 mg/24 hr patch 21 mg 21 mg (1 patch), Transdermal, DAILY, First dose on Sat09/15/21 at 1815, Until Discontinued, Apply new patch to nonhairy, clean, dry skin on the upper body or upper outer arm; each patch should be applied to a different site , STAT Patch Applied 09/16/2021 9:48 AM EDT 21 mg 10- Arm Upper (Right) Patch Applied 09/15/2021 7:49 PM EDT 21 mg 03- Shoulder (Left) nicotine (NICODERM CQ) 21 mg/24 hr patch Patch Removal Transdermal, DAILY, First dose on Sat09/16/21 at 0900, Until Discontinued, Remove nicotine 21 mg/24 hr patch nicotine (NICODERM CQ) 21 mg/24 hr patch Patch Verification Transdermal, 2 TIMES DAILY, First dose on Sat09/16/21 at 0600, Until Discontinued, Verify nicotine 21 mg/24 hr patch norethindrone (Aygestin) tablet 10 mg 10 mg, Oral, 2 TIMES DAILY, First dose on Sat09/15/21 at 2245, Until Discontinued, STAT Given 09/16/2021 9:48 AM EDT 10 mg Given 09/15/2021 11:45 PM EDT 10 mg ondansetron (pf) (Zofran) (2 mg/mL) injection 4-8 mg 4-8 mg, Intravenous, EVERY 8 HOURS PRN, Starting on Sat09/15/21 at 2152, Until 09/16/21 at 1610, Nausea, Start with 4mg and if ineffective in 30 minutes, give an additional 4mg ondansetron (Zofran) tablet 4-8 mg 4-8 mg, Oral, EVERY 8 HOURS PRN, Starting on Sat09/15/21 at 2152, Until 09/16/21 at 1610, Nausea, Vomiting, If multiple antiemetics are ordered, use ondansetron first. PO Preferred. If patient unable to take PO, may give IV if ordered. May repeat times one in 45 minutes if ineffective. , Routine promethazine (Phenergan) (25 mg/mL) injection 6.25 mg 6.25 mg, Intravenous, EVERY 30 MIN PRN, Nausea, Starting on Sat09/15/21 at 1705, 2 doses, Until Sat09/15/21 at 1716, Maximum total dose of 12.5 mg (including OR administration). VESICANT - Dilute with a minimum of 10 mL sodium chloride 0.9%. LARGE VEIN only. Inject over 10 minutes into the farthest port of a running IV infusion. Remain with the patient and STOP infusion immediately if patient reports burning. Avoid extravasation. If multiple antiemetics are ordered, use ondansetron first and if ineffective use prochlorperazine second and if ineffective use promethazine., PACU Recovery Given 09/15/2021 5:09 PM EDT 6.25 mg documented in this encounter Active and Recently Administered Medications Times are shown in EDT. Scheduled Medication Order 09/14/2021 09/15/2021 09/16/2021 acetaminophen (Tylenol) tablet 1,000 mg 1,000 mg, Oral, EVERY 6 HOURS SCHEDULED, First dose on Sat09/15/21 at 1815, Until Discontinued, Maximum dose of acetaminophen is 4000 mg from all sources in 24 hours. When ordered for pain, acetaminophen should be given even when other ordered pain medications are indicated., Routine 2024 (Given - Provider: Alyson Porter RN)2357 (Given - Provider: Miah Garcia RN) 0542 (Given - Provider: Miah Garcia RN)1200 (Due) aspirin chewable tablet 81 mg 81 mg, Oral, DAILY, First dose on Sat09/15/21 at 1815, Until Discontinued, Routine 2024 (Given - Provider: Alyson Porter RN) 0948 (Given - Provider: Drea Naranjo) atorvastatin (Lipitor) tablet 80 mg 80 mg, Oral, EVERY EVENING, First dose on Sat09/15/21 at 2245, Until Discontinued, Routine 2344 (Given - Provider: Miah Garcia RN) ceFAZolin (Ancef) 2 g in dextrose 5% 100 mL infusion 2 g, Intravenous, EVERY 8 HOURS, 3 doses, First dose on Sat09/15/21 at 2230, Last dose on Sat09/16/21 at 1430, Administer over 30 Minutes, Redose after 4 hours., Recovery (Recovery-Hospital Unit), Indication for (Active or Suspected): Prophylaxis 2207 (New Bag - Provider: Miah Garcia RN)2238 (Stopped - Provider: Miah Garcia RN) 0542 (New Bag - Provider: Miah Garcia RN)0612 (Stopped - Provider: Miah Garcia RN) nicotine (Nicoderm CQ) 21 mg/24 hr patch 21 mg(Linked Group 1) 21 mg (1 patch), Transdermal, DAILY, First dose on Sat09/15/21 at 1815, Until Discontinued, Apply new patch to nonhairy, clean, dry skin on the upper body or upper outer arm; each patch should be applied to a different site , STAT 1948 (Patch Applied - Provider: Alyson Porter RN) 0948 (Patch Applied - Provider: Drea Naranjo) nicotine (NICODERM CQ) 21 mg/24 hr patch Patch Removal(Linked Group 1) Transdermal, DAILY, First dose on Sat09/16/21 at 0900, Until Discontinued, Remove nicotine 21 mg/24 hr patch 0900 (Patch Removed - Provider: Thais Dong RN) nicotine (NICODERM CQ) 21 mg/24 hr patch Patch Verification(Linked Group 1) Transdermal, 2 TIMES DAILY, First dose on 09/16/21 at 0600, Until Discontinued, Verify nicotine 21 mg/24 hr patch 0600 (Patch (dose an d location) verified - Provider: Miah Garcia, DORENE) norethindrone (Aygestin) tablet 10 mg 10 mg, Oral, 2 TIMES DAILY, First dose on Sat09/15/21 at 2245, Until Discontinued, STAT 2345 (Given - Provider: Miah Garcia RN) 0948 (Given - Provider: Drea Naranjo) Continuous Medication Order 09/14/2021 09/15/2021 09/16/2021 lactated ringers infusion (CANCELED) 1,000 mL, at 100 mL/hr, Intravenous, CONTINUOUS, Starting on Sat09/15/21 at 1345, Until Sat09/15/21 at 1929, Day of Surgery (Day of Procedure) 1408 (New Bag - Provider: Karla Mayo RN)1413 (Paused - Provider: Jigar Rodriguez CRNA - Comment: Switch to gravity)1414 (Restarted - Provider: Jigar Rodriguez CRNA)1621 (Anesthesia Volume Adjustment - Provider: Jigar Rodriguez CRNA) lactated ringers infusion (CANCELED) 100 mL/hr, Intravenous, CONTINUOUS, Starting on Sat09/15/21 at 1815, Until 09/16/21 at 0014 1828 (New Bag - Provider: Alyson Porter RN) 0613 (Stopped - Provider: Miah Garcia RN) PRN Medication Order 09/14/2021 09/15/2021 09/16/2021 gelatin adsorbable (Gelfoam) sponge (CANCELED) ONCE PRN, Starting on Sat09/15/21 at 1505, Until 09/16/21 at 1610, Intra-Operative (Intra-Procedure) 1505 (Given - Provider: Faraz Ramirez MD) labetaloL (Normodyne) (5 mg/mL) injection solution 10 mg 10 mg, Intravenous, EVERY 1 HOUR PRN, Starting on Sat09/15/21 at 1725, Until 09/16/21 at 1610, High Blood Pressure, for SBP > 150, hold for HR < 60 for maximum of 2 doses, then mark HOUSE., May repeat 10 mg in 15 minutes once if SBP goal not achieved, Routine 1728 (Given - Provider: Casandra Munguia, RN)2358 (Given - Provider: Miah Garcia, DORENE) nicotine polacrilex (Commit) lozenge 4 mg 4 mg, Buccal, EVERY 1 HOUR PRN, Starting on Sat09/15/21 at 1757, Until 09/16/21 at 1610, Smoking cessation, Use the 4 mg lozenge if the patient smokes a cigarette within 20 minutes of waking. If multiple PRN medications for smoking cessation, may give gum concomitant with lozenge., STAT ondansetron (pf) (Zofran) (2 mg/mL) injection 4-8 mg(Linked Group 2) 4-8 mg, Intravenous, EVERY 8 HOURS PRN, Starting on Sat09/15/21 at 2152, Until 09/16/21 at 1610, Nausea, Start with 4mg and if ineffective in 30 minutes, give an additional 4mg ondansetron (Zofran) tablet 4-8 mg(Linked Group 2) 4-8 mg, Oral, EVERY 8 HOURS PRN, Starting on Sat09/15/21 at 2152, Until 09/16/21 at 1610, Nausea, Vomiting, If multiple antiemetics are ordered, use ondansetron first. PO Preferred. If patient unable to take PO, may give IV if ordered. May repeat times one in 45 minutes if ineffective. , Routine oxyCODONE (Roxicodone) tablet 5-10 mg 5-10 mg, Oral, EVERY 4 HOURS PRN, Starting on Sat09/15/21 at 1757, Until 09/16/21 at 1610, Pain, For Moderate Pain (4-6), Initial dose 5 mg. If pain control not adequate in 60 minutes, give additional 5 mg., Routine promethazine (Phenergan) (25 mg/mL) injection 6.25 mg (CANCELED) 6.25 mg, Intravenous, EVERY 30 MIN PRN, Nausea, Starting on Sat09/15/21 at 1705, 2 doses, Until Sat09/15/21 at 1716, Maximum total dose of 12.5 mg (including OR administration). VESICANT - Dilute with a minimum of 10 mL sodium chloride 0.9%. LARGE VEIN only. Inject over 10 minutes into the farthest port of a running IV infusion. Remain with the patient and STOP infusion immediately if patient reports burning. Avoid extravasation. If multiple antiemetics are ordered, use ondansetron first and if ineffective use prochlorperazine second and if ineffective use promethazine., PACU Recovery 1709 (Given - Provider: Casandra Munguia RN - Comment: given per md order in place of compazine) thrombin (Bovine) (Thrombinar) kit (CANCELED) ONCE PRN, Starting on Sat09/15/21 at 1504, Until 09/16/21 at 1610, Intra-Operative (Intra-Procedure) 1504 (Given - Provider: Faraz Ramirez MD) Linked Groups Order Group 1: nicotine (Nicoderm CQ) 21 mg/24 hr patch 21 mgJump to med 21 mg (1 patch), Transdermal, DAILY, First dose on Sat09/15/21 at 1815, Until Discontinued, Apply new patch to nonhairy, clean, dry skin on the upper body or upper outer arm; each patch should be applied to a different site , STAT And nicotine (NICODERM CQ) 21 mg/24 hr patch Patch VerificationJump to med Transdermal, 2 TIMES DAILY, First dose on Sat09/16/21 at 0600, Until Discontinued, Verify nicotine 21 mg/24 hr patch And nicotine (NICODERM CQ) 21 mg/24 hr patch Patch RemovalJump to med Transdermal, DAILY, First dose on Sat09/16/21 at 0900, Until Discontinued, Remove nicotine 21 mg/24 hr patch Group 2: ondansetron (Zofran) tablet 4-8 mgJump to med 4-8 mg, Oral, EVERY 8 HOURS PRN, Starting on Sat09/15/21 at 2152, Until Sat09/16/21 at 1610, Nausea, Vomiting, If multiple antiemetics are ordered, use ondansetron first. PO Preferred. If patient unable to take PO, may give IV if ordered. May repeat times one in 45 minutes if ineffective. 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
--- OUTSIDE RECORDS SUMMARY | 2024-04-14 12:57 | XMS_ITS | Encounter Summary ---
Author Organization [facility] Address [facility] [place] [address] Care Team Providers Care Family Day Carer Name Role Phone Pk Trevizo MD Primary Care Provider [phone] Reason for Visit * Auth/Cert Specialty Diagnoses / Procedures Referred By Kit t Referred To Contact Diagnoses R ICA stenosis Procedures PRO THROMBOENDARTECTMY NECK, NECK INCIS @ENDARTERECTOMY, CAROTID, VERTEBRAL,SUBCLAVIAN W\WO PATCH GRAFT (WRVU 21.16) Referral ID Status Reason Start Date Expiration Date Visits Re quested Visits Authorized [id number] 1 1 Encounter Details Date Type Department Care Team (Late st Contact Info) Description 09/15/2021 1:40 PM EDT - 09/15/2021 5:41 PM EDT Surgery [place] [address] Mickey Magallon MD [facility] [place] [address] @ENDARTERECTOMY, CAROTID, VERTEBRAL,SUBCLAVIAN W\WO PATCH GRAFT (WRVU 21.16) Social History Tobacco Use Types Packs/Day Years [...] Sign Reading Time Taken Comments Blood Pressure 185/75 09/15/2021 5:30 PM EDT Pulse 77 09/15/2021 5:30 PM EDT Temperature 37 ??C (98.6 ??F) 09/15/2021 4:50 PM EDT Respiratory Rate 15 09/15/2021 5:30 PM EDT Oxygen Saturation 93% 09/15/2021 5:30 PM EDT Inhaled Oxygen Concentration - - Weight 101.7 kg (224 lb 3.3 oz) 09/15/2021 1:55 PM EDT Height 165.1 cm (5' 5) 09/15/2021 [...] AM PRE ANESTHESIA, CONSULT Same Day at [facility] Arrive at: Home [phone] To view instructions for your video visit, click here, or visit this website: [email or web address] If you have not previously downloaded the [employer] patient portal software, [employer], or the Zoom mai, please do so by clicking one [...] Tracee Cobos MD Obstetrics and Gynecology at [facility] Arrive at: Lap Cutter Area 5L [phone] Future Orders Complete By Expires Carotid Duplex, Unilateral [VAS2 Custom] 10/17/2021 (Approximate) 09/16/2022 Process Instructions: There is no in-house vascular laboratory clerk available on weeknights (5pm-8am), weekends, or holidays. IF THIS IS A REQUEST FOR AN EMERGENT STUDY DURING THOSE HOURS, please have the senior provider responsible for the patient page the Vascular Surgery Fellow/Senior Resident money manager to discuss options. Scheduling Instructions: Questions: Laterality: Right Indication for study/signs & symptoms: s/p R CEA Question to be answered: patency Preferred location?: [facility] Clinics Anticoagulation & Antiplatelet: Anticoagulation: None indicated Antiplatelet: Agent: ASA Indication: ASCVD Intended Duration: Custodial For questions regarding these medications, please contact: [...] or questions please call our office at [phone] For issues on weeknights after 5pm and weekends please call [phone] and ask for the Vascular Fellow money manager. Sara Barron APRN Department of Vascular Surgery [...] or questions please call our office at [phone] For issues on weeknights after 5pm and weekends please call [phone] and ask for the Vascular Fellow money manager. documented in this encounter Medications at Time [...] Pt walked to main entrance with this procedure writer. This procedure writer waited outside with pt while waiting [...] intact in extremities, bilaterally symmetric. AP Geeta Gnozalez is a 56 y.o. female status post right carotid endarterectomy and patch angioplasty ??currently in stable condition and recovering well. Will give tylenol and diet to see if alleviates headache. - pain well controlled - hemodynamically stable - UOP adequate Holly Lizarraga MD Vascular Surgery 09/15/21 * Alyson Porter RN - 09/15/2021 5:39 PM EDT Hand off received from Casandra Munguia RN. 1829 PACU D/C criteria met 1999 Hand off [...] carotid endarterectomy Yash Ramirez Vascular Surgery Pager #[phone] documented in this encounter Miscellaneous Notes * Op Note - Faraz Ramirez MD - 09/15/2021 5:13 PM EDT [facility] Operative Note Patient Name: Geeta Gonzalez : [id number] MR#: [id number] Case Date: 09/15/2021 Surgeon: Surgeon(s) and Role: [...] artery distally using Pott's scissors. Using a [place] elevator, endarterectomy of the common carotid and [...] Implant Name Type Inv. Item Serial No. Roll Over Press Operator Lot No. LRB No. Used Action GRAFT SOFT TISSUE 0.8X8CM SQUARE BOVINE XENOSURE ([id number]) - [id number] IMPLANTS GRAFT SOFT TISSUE 0.8X8CM SQUARE BOVINE XENOSURE ([id number]) 0000 [facility] [id number] Right 1 Implanted Associated attestation - Mickey [...] Date/Time Associated Diagnosis Comments RAPID COVID-19 PCR (MH/APD/NLH) Routine 09/15/2021 4:30 PM EDT CAROTID DUPLEX, UNILATERAL Routine 09/15/2021 3:14 PM EDT Stenosis of carotid artery, unspecified laterality BLOOD GAS ARTERIAL POC Routine 3:12 PM EDT Thromboendartectmy Neck, Neck Incis ([id number]) 09/15/2021 2:14 PM EDT Stenosis of carotid [...] * COVID-19 PCR (09/15/2021 4:30 PM EDT) SARS-CoV-2 RNA (Rapid) Not Detected Not Detected [facility] Comment: This result should be [...] using the Simplexa COVID-19 Direct Assay by [employer] as authorized by the FDA issued Emergency [...] Department of Pathology and Laboratory Medicine at [facility], certified under the Clinical Laboratory Improvement Amendments [...] fact sheets at the following FDA website: https://www.fda.gov/medical-devices/znukjgknbyu-qsuzluq-6643-ldtqq-58-evzvhrljz- use-a tpfpmsnnbnadc-mekmdhc-dlkzzlw/xlvcz-evuxvnvexpz-hywg SARS-CoV-2 Source [employer]ER [employer] Swab MA RY [facility] Nasopharyngeal Swab 09/16/19 4:30 PM EDT 09/15/2021 5:36 PM EDT Comment:Symptoms->Surveillan ce Narrative Resulting Agency Comment Spec In Lab Mickey Magallon MD MICROBIOLOGY - GENER AL ORDERABLES [facility] [place] [address] * Carotid Duplex, Unilateral (09/15/2021 3:14 PM EDT) VB Text Report Department: Vascular Surgery Lab Patient: [id number] (GEETA GONZALEZ) CPT: 50966 Referring Physician: MICKEY MAGALLON ?? Indications: intraop [...] pH, Arterial 7.26(Criti thea) 7.35 - 7.45 [facility] PCO2, Arterial 47(H) 35 - 45 mmHg [facility] PO2, Arterial 147(H) 85 - 104 mmHg [facility] Bicarbonate, Arterial 20.6 20.0 - 26.0 mmol/L [facility] Base Excess, Arterial -6.5(L) -3.0 - 3.0 mmol/L [facility] Hgb Blood Gas 11.1(L) 11.7 - 15.5 g/dL [facility] Oxyhemoglobin, Arterial 89.9(L) 94.0 - 97.0 % [facility] Carboxyhemoglob in, Arterial 9.7 % [facility] Comment: Nonsmokers: 0.5-1.5% COHB Smokers: Variable, but usually less than 10% Toxic: 20-30% COHB Lethal: Greater than 60% COHB Methemoglobin, Arterial 0.1 <=1.5 % [facility] Na Whole Blood 132(L) 135 - 145 mmol/L [facility] K Whole Blood 3.8 3.5 - 5.0 mmol/L [facility] Comment: Please note: Patients with WBC >100,000 may have falsely elevated Potassium levels. Contact the Clinical Chemistry Laboratory if there are any questions. ICa Whole Blood 1.11(L) 1.15 - 1.33 mmol/L [facility] Comment: Note: ??Total bilirubin higher than 20 mg/dL may lead to falsely low ionized calcium. CL Whole Blood 106 98 - 107 mmol/L [facility] Gluc Whole Bld 127 65 - 199 mg/dL [facility] Comment:Diabetes: >=200 mg/d L plus symptoms. Lactate WB 1.2 0.5 - 2.2 mmol/L [facility] Blood 09/15/2021 3:12 PM EDT 09/15/2021 3:12 PM EDT Mickey Magallon MD POINT OF CARE TEST O RDERABLES Performing Organization Address [facility] Co de Phone Number [facility] [place] [address] * EKG 12 Lead (09/15/2021 1:44 PM EDT) Ventricular rate 87 BPM MUSE SYSTEM Atrial Rate 87 BPM MUSE SYSTEM P-R Interval 142 ms MUSE SYSTEM QRS Duration 90 ms MUSE SYSTEM Q-T Interval 362 ms MUSE SYSTEM QTC Calculated (Bezet) 435 ms MUSE SYSTEM Calculated P [place] 44 degrees MUSE SYSTEM Calculated R [place] -12 degrees MUSE SYSTEM Calculated T [place] 59 degrees MUSE SYSTEM INTERPRETATION Normal sinus rhythm Minimal voltage criteria for LVH, may be normal variant ( Santos product ) Poor R wave progression Abnormal ECG No previous ECGs available Confirmed by MD WILMER, BROOKLYN ([id number]) on 09/15/2021 2:09:45 PM MUSE SYSTEM 09/15/2021 1:44 PM EDT 09/15/2021 2:09 PM EDT Mickey Magallon MD ECG ORDERABLES Performing Organization Address [facility] Co de Phone Number MUSE SYSTEM * (ABNORMAL) Hemogram (09/15/2021 1:17 PM EDT) White Blood Cell 10.8(H) 4.0 - 9.5 x10(3)/mc L [facility] Red Blood Cell 4.13 4.00 - 5.21 x10(6)/mc L [facility] Hemoglobin 11.9 11.7 - 15.5 g/dL [facility] Hematocrit 36.5 35.7 - 45.8 % [facility] Mean Cell Volume 88.4 82.6 - 94.4 fL [facility] Mean Cell Hemoglobin 28.8 27.1 - 32.0 pg [facility] Mean Cell Hemoglobin Concentration 32.6 31.7 - 35.0 g/dL [facility] Platelet 373(H) 145 - 357 x10(3)/mc L [facility] RDW Standard Deviation 57.1(H) 37.0 - 46.0 fL [facility] RDW coefficient of variation 17.6(H) 11.5 - 14.1 % [facility] Mean Platelet Volume 11.5 7.6 - 12.9 fL [facility] NRBC% auto 0.0 % [facility] NRBC Absolute 0.000 0.000 - 0.000 x10(3)/mc L [facility] Blood 09/15/2021 1:17 PM EDT 09/15/2021 1:23 PM EDT Narrative Resulting Agency Comment Spec In Lab Sara Barron APRN HEMATOLOGY ORDERABLE S [facility] [place] [address] * (ABNORMAL) Basic Metabolic Panel (non-fasting) (09/15/2021 1:17 PM EDT) Glucose 134 65 - 199 mg/dL [facility] Comment:Diabetes: >=200 mg/d L plus symptoms Blood Urea Nitrogen 8 8 - 18 mg/dL [facility] Creatinine 0.72 0.70 - 1.20 mg/dL [facility] Sodium 133(L) 135 - 145 mmol/L [facility] Potassium 3.9 3.5 - 5.0 mmol/L [facility] Comment: Please note: ??Patients with WBC >100,000 may have falsely elevated Potassium levels. ??For accurate Potassium quantification in these patients send serum separator tube (gold top) for subsequent determinations. ??Contact the Clinical Chemistry Laboratory if there are any questions. Chloride 101 98 - 107 mmol/L [facility] Carbon Dioxide 17(L) 22 - 31 mmol/L [facility] Anion Gap 15 5 - 15 mmol/L [facility] Calcium 8.5 8.5 - 10.5 mg/dL [facility] Est Glomerular Filtration Rate 93 >=60 mL/min/1. 73 m?? [facility] Barron APRN CHEMISTRY ORDERABLES Performing Organization Address [facility]/ZIP Co de Phone Number [facility] [place] [address] * (ABNORMAL) Prealbumin (09/15/2021 1:17 PM EDT) Prealbumin 48(H) 20 - 40 mg/dL [facility] Comment: Prealbumin levels are generally lower in the pediatric population; adult concentrations are usually attained near puberty. Blood 09/15/2021 1:17 PM EDT 09/15/2021 1:23 PM EDT Narrative Resulting Agency Comment Spec In Lab Sara Barron APRN CHEMISTRY ORDERABLES Performing Organization Address City/[facility]/ZIP Co de Phone Number [facility] [place] [address] * SCAN DOC: IMPLANTABLE DEVICES (09/15/2021 12:00 AM EDT) Unknown MEDIA MGR SCAN EXT O RDR/RSLT documented in this encounter Visit Diagnoses Diagnosis Stenosis of carotid artery, unspecified laterality Pre-op testing Preoperative examination, unspecified Stenosis of right carotid artery greater than 50% Stenosis of right carotid artery greater than 50% Stenosis of carotid artery, unspecified laterality Pre-op testing Preoperative examination, unspecified documented in this encounter Admitting Diagnoses Diagnosis [...] 10:08 PM EDT 2 g 200 mL/hr gelatin adsorbable (Gelfoam) sponge ONCE PRN, Starting on Sat09/15/21 at 1505, Until Sat09/16/21 at 1610, Intra-Operative (Intra-Procedure) Given 09/15/2021 3:05 PM EDT 2 each 19- Surgical Site labetaloL (Normodyne) (5 mg/mL) injection solution 10 mg 10 mg, Intravenous, EVERY 1 HOUR PRN, Starting on Sat09/15/21 at 1725, Until Sat09/16/21 at 1610, High Blood Pressure, for SBP > 150, hold for HR < 60 for maximum of 2 doses, then mark TURNER, May repeat 10 mg in 15 minutes once if SBP goal not achieved, Routine Given 09/15/2021 11:58 PM EDT 10 mg Given 09/15/2021 5:28 PM EDT 10 mg nicotine (Nicoderm CQ) 21 mg/24 hr patch [...] in 45 minutes if ineffective. , Routine thrombin (Bovine) (Thrombinar) kit ONCE PRN, Starting on Sat09/15/21 at 1504, Until 09/16/21 at 1610, Intra-Operative (Intra-Procedure) Given 09/15/2021 3:04 PM EDT 20,000 Units 19- Surgical Site documented in this encounter Active and Recently [...] Prophylaxis 2207 (New Bag - Provider: Miah Garcia, DORENE)2238 (Stopped - Provider: Miah Garcia, DORENE) 0542 (New Bag - Provider: Miah Garcia RN)0612 (Stopped - Provider: Miah Garcia, DORENE) nicotine (Nicoderm CQ) 21 mg/24 hr patch 21 mg(Linked Group 1) 21 mg (1 patch), Transdermal, DAILY, First dose on Sat09/15/21 at 1815, Until Discontinued, Apply new patch to nonhairy, clean, dry skin on the upper body or upper outer arm; each patch should be applied to a different site , STAT 1949 (Patch Applied - Provider: Alyson Porter RN) [...] Discontinued, STAT 2345 (Given - Provider: Miah Garcia, DORENE) 0948 (Given - Provider: Drea Naranjo) Continuous [...] Porter RN) 0613 (Stopped - Provider: Miah Garcia, DORENE) PRN Medication Order 09/14/2021 09/15/2021 09/16/2021 gelatin [...] achieved, Routine 1728 (Given - Provider: Casandra Munguia RN)2358 (Given - Provider: Miah Garcia, DORENE) [...] to med Transdermal, DAILY, First dose on 09/16/21 at 0900, Until Discontinued, Remove nicotine 21 [...] 4mg documented in this encounter Care Teams Family Day Carer Relationship Specialty Start Date End Date Pk Trevizo MD [address] [place] [address] PCP - General Emergency Medicine 05/02/21 documented as of this encounter
--- OUTSIDE RECORDS SUMMARY | 2024-04-14 12:57 | XMS_ITS | Encounter Summary ---
[place] [address] Care Team Providers Care Cloth Booker Name Role Phone Pk Trevizo MD Primary Care Provider [phone] Reason for Referral * Diagnostic Test (Routine) - Closed Specialty Diagnoses / Procedures Referred By Kit saravia Referred To Contact Radiology Diagnoses Adenocarcinoma of endometrium Procedures CT Chest Abdomen Pelvis w Contrast (Generic) Brian Pollock MD [facility] [place] [address] [facility] [place] [address] Referral ID Status Reason Start Date Expiration Date V isits Requested Visits Authorized [id number] Closed Specialty Service Requested 10/04/2021 04/05/2023 1 1 Encounter Details Date Type Department Care Team (Late st Contact Info) Description 09/28/2021 Orders Only [place] [address] Tiana Benz RN Adenocarcinoma of [...] as of this encounter Miscellaneous Notes * Addendum Note - Tiana Benz RN - 09/28/2021 3:32 PM EDTAddended by: TIANA BENZ on: 10/03/2021 11:58 AM Modules accepted: Orders * Addendum Note - Tiana Benz RN - 09/28/2021 3:32 PM EDTAddended by: TIANA BENZ on: 10/04/2021 11:40 AM Modules accepted: Orders * Addendum Note - Brian Pollock MD - 09/28/2021 3:32 PM EDTAddended by: BRIAN POLLOCK on: 10/04/2021 12:34 PM Modules accepted: Orders documented in this encounter Plan of Treatment Not on file documented as of this encounter Results * CT Chest Abdomen Pelvis w Contrast (Generic) (10/07/2021 3:09 PM EDT) Anatomical Region Laterality Modality Abdomen, Pelvis Computed Tomogra phy 10/07/2021 3:26 PM EDT Impressions 10/09/2021 9:34 AM EDT 1. ??Mixed attenuation uterine mass, compatible with history of neoplasm. 2. ??Multiple small, less than 1 cm, LEFT para iliac and para-aortic lymph nodes are noted, which are indeterminate. Thank you for letting us participate in the care of this patient. ??If you are a health care provider and have any questions regarding this report, please contact the number below. ??For patients who have questions please contact the health health care marketing manager that requested your imaging first. ? Electronically signed by: Murray Swenson MD, [facility] ([phone]), at 10/09/2021 9:34 AM Narrative 10/09/2021 9:34 AM EDT EXAMINATION: CT CHEST ABDOMEN PELVIS W CONTRAST (GENERIC) CLINICAL HISTORY: Uterine/cervical cancer, staging TECHNIQUE: Helical CT of the chest, abdomen, and pelvis was performed following the intravenous administration of contrast. Administered 118.0 ml of OMNIPAQUE 350.00 mg/ml. Oral contrast was administered. COMPARISON: None FINDINGS: Chest: Lungs and large airways: The lungs are clear. No suspicious pulmonary nodules or areas of airspace consolidation. Pleura: No effusion. Heart/vasculature: No pericardial effusion. Lymph nodes: No enlarged lymph nodes. Mediastinum and radha: Normal. Abdomen/pelvis: Liver: Normal size and attenuation without lesions. Bile ducts: Nondilated. Gallbladder: No calcified gallstones. Normal caliber wall. Pancreas: Normal attenuation without ductal dilatation. Spleen: Normal. Adrenals: Normal. Kidneys: Normal. Symmetric enhancement. No collecting system obstruction bilaterally. Urinary Bladder: Normal. Vasculature: No aneurysm. Lymph Nodes: ??Multiple small, less than 1 cm LEFT para iliac and LEFT para-aortic lymph nodes are seen, which are indeterminate. Scattered borderline enlarged mesenteric lymph nodes are noted. Bowel: Nondilated, no wall thickening. ?? Peritoneum and mesentery: No ascites, free air, or loculated fluid collection. No mesenteric inflammation. Abdominal wall: Normal. Reproductive organs: A mixed attenuation mass is seen in the uterus, measuring approximately 7.9 x 10.0 cm in the axial plane. Osseous structures: No suspicious lesions. Procedure Note Murray Swenson MD - 10/09/2021 EXAMINATION: CT CHEST ABDOMEN PELVIS W CONTRAST (GENERIC) CLINICAL HISTORY: Uterine/cervical cancer, staging TECHNIQUE: Helical CT of the chest, abdomen, and pelvis was performedfollowing the intravenous administration of contrast. Administered 118.0 ml ofOMNIPAQUE 350.00 mg/ml. Oral contrast was administered. COMPARISON: None FINDINGS: Chest: Lungs and large airways: The lungs are clear. No suspicious pulmonarynodules or areas of airspace consolidation. Pleura: No effusion. Heart/vasculature: No pericardial effusion. Lymph nodes: No enlarged lymph nodes. Mediastinum and radha: Normal. Abdomen/pelvis: Liver: Normal size and attenuation without lesions. Bile ducts: Nondilated. Gallbladder: No calcified gallstones. Normal caliber wall. Pancreas: Normal attenuation without ductal dilatation. Spleen: Normal. Adrenals: Normal. Kidneys: Normal. Symmetric enhancement. No collecting system obstruction bilaterally. Urinary Bladder: Normal. Vasculature: No aneurysm. Lymph Nodes: Multiple small, less than 1 cm LEFT para iliac and LEFT para-aortic lymph nodes are seen, which are indeterminate. Scatteredborderline enlarged mesenteric lymph nodes are noted. Bowel: Nondilated, no wall thickening. Peritoneum and mesentery: No ascites, free air, or loculated fluidcollection. No mesenteric inflammation. Abdominal wall: Normal. Reproductive organs: A mixed attenuation mass is seen in the uterus,measuring approximately 7.9 x 10.0 cm in the axial plane. Osseous structures: No suspicious lesions. IMPRESSION 1. Mixed attenuation uterine mass, compatible with history of neoplasm. 2. Multiple small, less than 1 cm, LEFT para iliac and para-aortic lymphnodes are noted, which are indeterminate. Thank you for letting us participate in the care of this patient. If youare a health care provider and have any questions regarding this report,please contact the number below. For patients who have questions please contactthe health health care marketing manager that requested your imaging first. Brian Pollock MD IMG CT ORDERABLES documented in this encounter Visit Diagnoses Diagnosis Adenocarcinoma of endometrium Malignant neoplasm of corpus uteri, except isthmus Adenocarcinoma of endometrium Malignant neoplasm of corpus uteri, except isthmus documented in this encounter Care Teams Cloth Booker Relationship Specialty Start Date End Date Pk Trevizo MD [address] [place] [address] PCP - General Emergency Medicine 05/02/21 documented as of this encounter
--- OUTSIDE RECORDS SUMMARY | 2024-04-14 12:57 | XMS_ITS | Encounter Summary ---
Author Organization [facility] [place] [address] Care Team Providers Care Circular Distributor Name Role Phone Pk Trevizo MD Primary Care Provider [phone] Reason for Referral * Diagnostic Test (Routine) - Closed Specialty Diagnoses / Procedures Referred By Contac t Referred To Contact Radiology Diagnoses Adenocarcinoma of endometrium Procedures CT Chest Abdomen Pelvis w Contrast (Generic) Brian Vidales MD [facility] [address] [facility] [place] [address] Referral ID Status Reason Start Date Expiration Date V isits Requested Visits Authorized [id number] Closed Specialty Service Requested 10/04/2021 04/05/2023 1 1 Reason for Visit * Diagnostic Test (Routine) - Closed Specialty Diagnoses / Procedures Referred By Contac t Referred To Contact Radiology Diagnoses Adenocarcinoma of endometrium Procedures CT Chest Abdomen Pelvis w Contrast (Generic) Brian Vidales MD [facility] [address] [facility] [place] [address] Referral ID Status Reason Start Date Expiration Date V isits Requested Visits Authorized [id number] Closed Specialty Service Requested 10/04/2021 04/05/2023 1 1 Encounter Details Date Type Department Care Team (Latest Contact Info) Description 10/07/2021 1:02 PM EDT - 10/07/2021 11:59 PM EDT Hospital Encounter CT Scan at [facility] [place] [id number] Brian Vidales MD [facility] [address] Adenocarcinoma of endometrium Discharge Disposition: Home Social [...] 15 days. 30 capsule 1 10/20/2021 11/04/2021 insulin glargine-yfgn (Semglee) 100 unit/mL Solution Inject 12 Units subcutaneously daily. 10 mL 10/21/2021 10/20/2021 insulin lispro (humaLOG) 100 unit/mL pen cartridge Inject 0-8 Units subcutaneously 3 times daily (with meals). 10 mL 10/20/2021 10/20/2021 ibuprofen (Advil) 600 mg Tablet Take 1 [...] Pen by Mis.(Non-Drug; Combo Route) route daily. 30 each 3 10/20/2021 11/13/2021 insulin lispro (humaLOG KwikPen) 100 unit/mL Insulin Pen Inject 0-8 Units subcutaneously 3 times daily (before meals). 6 mL 3 10/20/2021 11/13/2021 insulin needles, disposable, (BD Ultra-Fine Short Pen Needle) 31 gauge x 5/16 Needle 1 Pen by Misc.(Non-Drug; Combo Route) route 3 times daily. 90 each 3 10/20/2021 11/13/2021 megestroL (Megace) 40 mg Tablet Take 1 tablet by mouth 2 times daily. 120 tablet 3 09/28/2021 10/20/2021 nicotine polacrilex (Commit) [address] [...] mg Cartridge Inhale into the lungs. 03/25/2021 acetaminophen 325 mg Capsule Take by mouth. 10/20/2021 documented as of this encounter Plan of Treatment Not on file documented as of this encounter Procedures Procedure Name Priority Date/Time Associated Diagnosis Comments CT CHEST ABDOMEN PELVIS W CONTRAST (GENERIC) Routine 10/07/2021 3:09 PM EDT Adenocarcinoma of endometrium documented in [...] who have questions please contact the health tree care foreman that requested your imaging first. ? Electronically signed by: Murray Swenson MD, [facility] ([phone]), at 10/09/2021 9:34 AM Narrative 10/09/2021 9:34 [...] patients who have questions please contactthe health tree care foreman that requested your imaging first. Electronically signed by: Murray Swenson MD, [facility]([phone]), at 10/09/2021 9:34 AM Brian Vidales MD IMG CT ORDERABLES documented in this encounter Visit Diagnoses Diagnosis Adenocarcinoma of endometrium Malignant neoplasm of corpus uteri, except isthmus documented in this encounter Administered Medications Inactive Administered Medications - up to 3 most recent administrations Medication Order MAR Action Action Date Dose Rate Site iohexoL (Omnipaque) (350 mg/mL) solution 0-200 mL 0-200 mL, Intravenous, ONCE PRN, 1 dose, Starting on 10/07/21 at 1501, Until 10/07/21 at 1501, Per Protocol, Warning Vesicant/Irritant Medication , Radiology Contrast, Routine Given 10/07/2021 3:01 PM EDT 118 mLs iohexoL (Omnipaque) (350 mg/mL) solution 0-50 mL 0-50 mL, Oral, ONCE PRN, 1 dose, Starting on 10/07/21 at 1501, Until 10/07/21 at 1501, Per Protocol, Warning Vesicant/Irritant Medication , Radiology Contrast, Routine Given 10/07/2021 3:01 PM EDT 50 mLs documented in this encounter Care Teams Circular Distributor Relationship Specialty Start Date End Date Pk Trevizo MD [address] [place] [address] PCP - General Emergency Medicine 05/02/21 documented as of this encounter
--- OUTSIDE RECORDS SUMMARY | 2024-04-14 12:57 | XMS_ITS | Encounter Summary ---
Author Organization [facility] [place] [address] Care Team Providers Care Wrapper Leaf Inspector Name Role Phone Pk Trevizo MD Primary Care Provider [phone] Encounter Details Date Type Department Care Team (Late st Contact Info) Description 09/18/2021 11:59 PM EDT Anesthesia [place] [phone] Jeremy Short MD [facility] [place] [address] Anesthesia Record Procedure Summary Procedure Name Responsible Anesthesiologist Anesthesia Start Time Anesthesia Stop Time AMB REFERRAL TO ANETHESIA PRE-OPERATIVE EVALUATION Events No events on file. Meds * Agents No agents on file. * Blood No blood administrations on file. Lines, Drains, and Airways No LDAs on file. documented in this encounter Social History Tobacco Use Types Packs/Day Years [...] PM EDT documented as of this encounter OR Notes * Anesthesia Preprocedure Evaluation - Jennifer Delgado APRN - 09/18/2021 9:58 AM EDT Pre-Anesthesia Evaluation for: Geeta Sadler a 56 y.o. female. Patient Active Problem List Diagnosis Date Noted ??? Stenosis of right carotid artery greater than 50% 09/15/2021 ??? Hypertension ??? Obesity ??? Abnormal vaginal bleeding with endometrial thickness greater than 5 mm present on transvaginal ultrasound in postmenopausal patient Past Medical History: Diagnosis Date ??? Abnormal vaginal bleeding with endometrial thickness greater than 5 mm present on transvaginal ultrasound in postmenopausal patient ??? Hypertension ??? Obesity ??? Tobacco use disorder Past Surgical History: Procedure Laterality Date ??? PRO THROMBOENDARTECTMY NECK, NECK INCIS Right 09/15/2021 @ENDARTERECTOMY, CAROTID, VERTEBRAL,SUBCLAVIAN W\WO PATCH GRAFT (WRVU 21.16) performed by Mickey Magallon MD at [facility] MAIN OR Social History Tobacco Use ??? Smoking status: Current Every Day Smoker Packs/day: 1.50 ??? Smokeless tobacco: Never Used ??? Tobacco comment: varies to about 1-1.5 packs per day Substance Use Topics ??? Alcohol use: Never Social History Substance and Sexual Activity Drug Use Never No Known Allergies Medications: MAR and/or home medications have been reviewed. Physical Exam: Preprocedure Vitals Current as of 09/18/21 0958 No BP, pulse, respiration, SpO2, or temperature recorded. Height: Weight: BMI: IBW: Anesthesia Physical Exam Last Filed Perioperative Cognitive Screening None Anesthesia Plan Anesthesia Screening Note: Date and Time of Entry: 09/18/2021 1:41 PM Entered By: Jennifer Delgado APRN Reason for Evaluation: Surgeon Request Hx of Anesthesia Problem: High risk due to comorbidities Screening Visit Type: Video Conference Additional/Outside Records Requested? Did not request medical information from outside organization. Findings, Assessment and Plan: 56 y.o. female with presenting for pre-anesthesia consultation priorto hysteroscopy and D&C for abnormal vaginal bleeding. MEDICAL HISTORY: #HTN #Stoke #Obesity (BMI 37) #Tobacco use disorder: Current everyday smoker, 1.5pack/day, working on cutting down but currently still smoking, using nicotine patches #Abnormal vaginal bleeding: on progesterone daily, bleeding has eased off but still has days with heavy bleeding, required a blood transfusion in March 2021 for an Hgb 4.9. Has not required any additional transfusions. Last H/H drawn from 09/15/21 was 11.9/36.5. # Type II diabetes: was told several years ago that she had type II diabetes but never required anymedication. Patient presented to [facility] in March 2021 with left arm weakness. CTH showed an old right parietal stroke. MRI was notable for multiple acute infarcts throughout the right frontal and parietal lobes in watershed distribution. She was also found to have severe right ICA stenosis. On a statin??and ASA.??Has residual left arm weakness. She underwent a right carotid endarterectomy and patch angioplasty on 09/15/21. Preliminary Carotid Duplex results post-operatively show a widely patent carotid bifurcation with no evidence of flap orresidual stenosis. Significantly improved compared to the preoperative exam. ANESTHETIC HISTORY: 09/15/21 Airway record from endarterectomy Grade 1 view with MAC3. Easy mask Per post procedure note, Rapid emergence from anesthesia with sevoflurane 0.7%. Patient was highlymobile and agitated and inadvertently dislodged a peripheral IV and arterial line. 30 mg precedex administered with little effect through remaining IV. Propofol was administered to safely transfer patient to bed and PACU. Patient is now oriented and calm in PACU, complaining of nausea. Phenergan and compazine available. History of PONV. No history of other complications related to anesthesia. Denies CP, palpitations or syncope. Allergies reviewed Labs reviewed Meds reviewed FUNCTIONAL EXERCISE TOLLERANCE: DASI 34.7, some shortness of breath with exertion EK09/15/21 Normal sinus rhythm, Minimal voltage criteria for LVH, may be normal variant ( [employer] ), Poor R wave progression Overall: Geeta Sadler is a 56 year old female who was seen in preparation for a hysteroscopy and D&C, date TBD. She had a carotid endarterectomy last week and tolerated this without issues. Given this is a relatively low risk procedure, would not recommend any additional testing at this time. Encouraged patient to continue working on smoking cessation, offered referral to the smoking cessation program but patient declined the referral. She has intermittent heavy vaginal bleeding. Reports passing some clots this morning but bleeding has since lessened. Has follow-up with gynecology on 09/21/21. She was instructed to contact the gynecology department if the bleeding worsens again. Willorder day of surgery hemogram. Jennifer Delgado APRN 09/18/2021 documented in this encounter Plan of Treatment Not on file documented as of this encounter Visit Diagnoses Not on filedocumented in this encounter Care Teams Wrapper Leaf Inspector Relationship Specialty Start Date End Date Pk Trevizo MD [address] [place] [address] PCP - General Emergency Medicine 05/02/21 documented as of this encounter
--- OUTSIDE RECORDS SUMMARY | 2024-04-14 12:57 | XMS_ITS | Encounter Summary ---
Author Organization Replaced By [facility] Address [facility] [place] [address] Care Team Providers Care Loaf Counter Name Role Phone Pk Trevizo MD Primary Care Provider [phone] Reason for Visit * Auth/Cert Specialty Diagnoses [...] SENTINEL LYMPH NODE,INCLUDES INJECTION (WRVU 2.5) MODIFIER ROBOT,TOYAI XI Referral ID Status Reason Start Date Expiration Date Visits Re quested Visits Authorized [id number] 1 1 Encounter Details Date Type Department Care Team (Late st Contact Info) Description 10/17/2021 10:58 AM EDT - 10/17/2021 2:23 PM EDT [place] [id number] Brian Pollock MD [facility] GYNECOLOGY ONCOLOGY [place], [place] [id number] ROBOTIC LAPAROSCOPY,TOTAL HYST, UTERUS<250GM, REM TUBE &/OR OVARY (WRVU 15) Social History Tobacco Use Types Packs/Day Years [...] Sign Reading Time Taken Comments Blood Pressure 152/79 10/17/2021 10:43 AM EDT Pulse 85 10/17/2021 10:43 AM EDT Temperature 37.1 ??C (98.8 ??F) 10/17/2021 1 0:43 AM EDT Respiratory Rate - - Oxygen Saturation 98% 10/17/2021 10: 43 AM EDT Inhaled Oxygen Concentration - - Weight 99.7 kg (219 lb 14.4 oz) 022 10:43 AM EDT Height 165.1 cm (5' 5) 10/17/2021 10:4 3 AM EDT Body Mass Index 37.13 10/17/2021 10:43 AM EDT documented in this encounter Discharge Summaries * Alyson Bailey MD - 10/19/2021 12:22 PM EDT Images from the original note were not included. Discharge Summary Patient Name: Geeta Sadler Patient Age: 56 y.o. Language: Bahraini Race: White Ethnicity: Not nor Admit date: 10/17/2021 Discharge date and time: 10/20/2021 Attending Physician: Brian Pollock MD Discharge Physician: Brian Pollock MD Follow-up Recommendations for Providers: -Follow-up with Dr. Trevizo on 10/31/21 at 11:00AM -Follow-up with Dr Brian Pollock on 11/13/2021 at 1pm at [facility] -Follow-up with Dr. Cole (Urology) in 4-6 weeks will be arranged for ureteral stent removal Inpatient Provider Contact Information: Dr. Brian Pollock, [facility] Gynecologic Oncology, Discharge Diagnoses (Hospital Problems) and [...] this biopsy and may not be fully assistance representative of the entire lesion. ??Definitive tumor [...] EBL was 700mL. Findings were notable for: Catalytic Converter Operator Onc 1. Exam under anesthesia: Enlarged firm [...] described separately in the procedures below. 3. [place] lymph node mapping: A left and right [...] PATIENT DISCHARGE INSTRUCTIONS Gynecologic Oncology phone number: [phone]. After hours and on weekends please call hospital cutting machine operator at [phone] and ask for Gynecologic Oncologist security operations engineer. Call your doctor if you develop: --A [...] removal in the Urology Clinic. Please call [phone] if you do not receive your appointment. [...] PM Brian Pollock MD Gynecology Oncology at [facility] Arrive at: Assistant Oceanographer Area [phone] Discharge References/Attachments None Provider Contact Information: Pk Trevizo MD [phone] documented in this encounter Discharge Instructions * [...] juice or regular (not diet) soda 6 [employer] small box of raisins 4 glucose tablets [...] removal in the Urology Clinic. Please call [phone] if you do not receive your appointment. It is important to remember that your ureteral stent cannot stay in place permanently. If it remains in place too long it may become encrusted with stone and require additional surgery to remove it. Please call our office if you do not receive your appointment or if you need to reschedule. * Patient Instructions* Alyson Bailey MD - 10/16/2021 1:26 PM EDT PATIENT DISCHARGE INSTRUCTIONS Gynecologic Oncology phone number: [phone]. After hours and on weekends please call hospital cutting machine operator at [phone] and ask for Gynecologic Oncologist security operations engineer. Call your doctor if you develop: --A [...] gauge x 5/16 Needle 1 Pen by [facility].(Non-Drug; Combo Route) route daily. 30 each 3 10/20/2021 11/13/2021 insulin lispro (humaLOG KwikPen) 100 unit/mL Insulin Pen Inject 0-8 Units subcutaneously 3 times daily (before meals). 6 mL 3 10/20/2021 11/13/2021 insulin needles, disposable, (BD Ultra-Fine Short Pen Needle) 31 gauge x 5/16 Needle 1 Pen by [facility].(Non-Drug; Combo Route) route 3 times daily. 90 each 3 10/20/2021 11/13/2021 nicotine (Nicoderm CQ) 21 mg/24 hr Patch 24 hr Change 1 patch on the skin daily. 28 patch 09/16/2021 11/06/2022 nicotine (Nicotrol) 10 mg Cartridge Inhale into the lungs. 03/25/2021 documented as of this encounter Progress Notes * Melisa Fernandez, RN - 10/20/2021 10:24 AM EDT Images [...] your insulin doses adjusted. Chanelle Church APRN [facility] Endocrinology Diabetes Management Pager [phone] minutes of this 35 minute visit [...] Intake/Output Summary (Last 24 hours) at 10/20/2021 0653 Last data filed at 10/20/2021 0500 Gross [...] Will follow-up on recommendations today -- S/p Lumber Kiln Operator teaching ID: Afebrile, received prophylactic antibiotics preop, [...] per AUG. Abdominal incision and lap sites MARIA R. Abdominal incision and lap sites MARIA R. TARI drainin place with 45 mL sanguinous drainage overnight. Resting between nursing care. Action List BG management Pain management I&Os Pt teaching abt TARI drain * Melvi Calvin RN - 10/19/2021 6:09 PM EDT OUTCOME EVALUATION NOTE: OUTCOME SUMMARY: I assumed care for this patient from 3650-4547. Patient ambulating in room with SBA/independently. Voiding [...] encounter: 102.8 kg (226 lb 10.1 oz). [place] Body Weight: 56.8 kg Usual Body Weight: [...] lb 6.4 oz) Assessment: Estimated needs: Calories: 0400-5434 (25-30 kcal/kg IBW) Protein: 85 grams (1.5 g/kg IBW) Nutrition Focused Physical Exam (NFPE): Performed on 10/19/21. Subcutaneous fat loss at Orbital region: None present Upper arm region (triceps/biceps): None present Thoracic and lumbar region (ribs, lower back and maxillary line): Not assessed Lean muscle loss to Pentecostal region (temporalis muscle): None present Clavicle bone [...] salad with beets for lunch. 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 Will follow-up on recommendations today -- Lumber Kiln Operator to do teaching with pt prior to [...] with the note as written. * Lupe Millan RN - 10/19/2021 5:59 AM EDT Illness [...] sanguinous output. Lap sites & incision all DIRECTOR OF ASSISTED LIVING. Alberto in place draining adequate amt of [...] I&Os - pt due to void by [id number] today. Creatinine level from TARI output - [...] insulin. IVF D/C'd. Lap sites and incision DIRECTOR OF ASSISTED LIVING, C/D/I. Alberto in place draining adequate amounts [...] Intake/Output Summary (Last 24 hours) at 10/18/2021 0613 Last data filed at 10/18/2021 0637 Gross [...] inpatient management. Code Status: Full Code Alyson H Bailey, MD, PGY-4 Gynecologic Oncology p4341 10/18/2021 I [...] List Insulin Drip Pain management I&Os * Shakila Jansen - 10/17/2021 11:45 PM EDT Images from [...] described separately in the procedures below. 3. [place] lymph node mapping: A left and right [...] hours) at 10/17/20212236 Last data filed at 10/17/20212235 Gross per 24 hour Intake 3400 ml [...] currently. --acetaminophen scheduled, oxycodone PRN. Consider hydromorphone FLEET DIRECTOR if pain becomes uncontrolled --hold NSAIDs given [...] MD, PGY-3 10/17/2021 Gynecologic Oncology Team Pager [phone] * Vandana Campoverde RN - 10/17/2021 8:15 PM EDT Received report, assumed care. * Elizabeth Faith RN - 10/17/2021 7:57 PM EDT 1930- GARMENT LOOPER service paged for insulin orders. Insulin drip running from OR. * Elizabeth Faith RN - 10/17/2021 7:29 PM EDT 1845- Labs sent per Dr. Cole. * Elizabeth Faith RN - 10/17/2021 7:18 PM EDT 1832- Pt rec'd in PACU from OR. documented in this encounter H&P Notes * Brian Pollock MD - 10/17/2021 10:51 AM EDT Inpatient Catalytic Converter Operator Onc - Admission Interval Note I have [...] to avoid opioid Rx [facility] MARILOU MOSCOSO Gynecologic Oncology p4341 10/17/2021 I [...] PHOS 3.3 4.0 2.8 -- ASSESSMENT: Geeta A [place] is a 56 y.o. female now 3 [...] COVID test: Lab Results Component Value Date [id number] Not Detected 09/15/2021 Past medical History: Past [...] Frances would be surrogate decision maker per [place] surrogate decision making law. (Only good for 180 days) Any patient receiving care at [facility] must abide by [place] law. The hierarchy for surrogate decision making [...] (i) The agent with financial power of civil attorney or a conservator appointed in accordance [...] confirmed as: [address] [facility] [address] Social & Family Supports: All names listed below confirmed with patient as current and correct Extended Emergency Contact Information Primary Emergency Contact: YVROSE FORD Address: [address] [place] [address] [facility] Mobile Relation: Child Current Care Provided [...] Insurance: N/A Prescription Coverage: Yes Preferred Pharmacy: [id number] - [facility], [place] - [address] [facility] [address] [facility] [address] [place] Status: Patient is a : No Primary Care Provider: Pk Trevizo MD [phone] Patient/Caregiver Goals of Treatment: return home when medically ready Potential Needs for Transition of Care: none Agency Referrals: Not Applicable Transportation: no concerns Transportation Anticipated: family or friend will provide Concerns to be Addressed: no discharge needs identified Assessment: Patient is admitted to Catalytic Converter Operator/onc service for Hysterectomy Plan: Patient continues to require post op testing. Per the team patient will discharge tomorrow. A member of the Care Management team will continue to monitor progress, follow for continuity of care and assist with transition of care planning. Salina CARRERA RN Phone: [phone] Pager: [phone] * Op Note - Justice Cole MD - 10/18/2021 3:48 PM EDT [facility] Operative Note Patient Name: Geeta Sadler : [id number] MR#: [id number] Case Date: 10/17/2021 Surgeon: Surgeon(s) and Role: Panel 1: * Brian Pollock MD - Primary * Alyson Bailey MD - Resident * Justice Cole MD - Assisting Attending Panel 2: * Jared Kiser MD - Primary * Blake Alvarado MD - Resident Panel 3: * Justice Cole MD - Primary Registered Nurse Measurement Supervisor: Chrissie Gómez RN Preoperative diagnosis: ENDOMETRIAL CANCER Postoperative diagnosis: ENDOMETRIAL CANCER Procedure(s) (LRB): LAPAROSCOPY,TOTAL HYST, UTERUS<250GM, REM TUBE &/OR OVARY, ROBOTIC ASSIST (WRVU 15) (N/A) LAPAROSCOPY,W\BILATERAL TOTAL PELVIC LYMPHADENECTOMY, PERIAORTIC LYMPH NODE SAMPLING, ROBOTIC (WRVU15.6) (N/A) INTRAOPERATIVE ID (MAPPING) SENTINEL LYMPH NODE,INCLUDES INJECTION (WRVU 2.5) (N/A) MODIFIER ROBOT,DAVINCI XI (N/A) @EXPLORATORY LAPAROTOMY, WITH/WITHOUT BIOPSY(S) (WRVU [...] Info Order Time SPECIMEN TO PATHOLOGY OR09 [id number] ENDOMETRIAL CANCER RIght pelvic sentinel lymph node excision 10/17/2021 12:45 PM Time specimen removed from patient: 12:43 PM Number of tissue samples (in container) 1 SPECIMEN TO PATHOLOGY OR09 [id number] ENDOMETRIAL CANCER Enlarged right obturator lymph node [...] No SPECIMEN [place] PATHOLOGY [place]ermanent [place] 9 81371 ENDOMETRIAL CANCER Left Pelvic Lymph Node excision [...] bladder injury or bladder stones. A 5 Swiss Pollick was then used to perform a gentle left retrograde. The ureter appeared normal there was no obvious extravasation from the left renal pelvis. Left renal pelvis was below consistent with a pelvic kidney. A Glidewire was passed into the left renal pelvis. A 6 x 20 Swiss double-J stent was then placed into the left renal pelvis without difficulty. A Alberto catheter was placed. The patient tolerated the procedure without difficulty was awoken from anesthesia and returned to recovery room in stable condition. * Consult Note - Chanelle Church, METROLOGY ENGINEER - 10/18/2021 8:21 AM EDT Diabetes Management Team Inpatient Consult Date of Consultation: 10/18/2021 Consult Requested by: GARMENT LOOPER Oncology Reason for Consultation: Geeta Sadler is a 56 y.o. female diagnosed with Diabetes at this admission who was admitted on 10/17/2021 currently being treated for postoperative state. We are being consulted to assist with diabetes management and to provide a review of residential diabetes care. Diabetes History: Geeta Sadler has [...] care for your patient Chanelle Church APRN [facility] Endocrinology Diabetes Management Pager [phone] minutes of this 80 minute visit was spent with the patient in counseling on diabetes and treatment plan, reviewing all glucose and insulin data as well as relevant laboratory results with the patient, and coordination of care on the inpatient unit * Op Note - Blake Alvarado MD - 10/18/2021 7:16 AM EDT [facility] Operative Note Patient Name: Geeta Sadler : [id number] MR#: [id number] Case Date: 10/17/2021 Surgeon: Surgeon(s) and Role: Panel 1: * Brian Pollock MD - Primary * Alyson Bailey MD - Resident * Justice Cole MD - Assisting Attending Panel 2: * Jared Kiser MD - Primary * Blake Alvarado MD - Resident Panel 3: * Justice Cole MD - Primary Registered Nurse Measurement Supervisor: Chrissie Gómez RN 1. 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 2. 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 Procedure(s) (LRB): LAPAROSCOPY,TOTAL HYST, UTERUS<250GM, REM TUBE &/OR OVARY, ROBOTIC ASSIST (WRVU 15) (N/A) LAPAROSCOPY,W\BILATERAL TOTAL PELVIC LYMPHADENECTOMY, PERIAORTIC LYMPH NODE SAMPLING, ROBOTIC (WRVU15.6) (N/A) INTRAOPERATIVE ID (MAPPING) SENTINEL LYMPH NODE,INCLUDES INJECTION (WRVU 2.5) (N/A) MODIFIER ROBOT,ENE XI (N/A) @EXPLORATORY LAPAROTOMY, WITH/WITHOUT BIOPSY(S) (WRVU [...] 0 days 1 Day Post-Op from a [facility] for large pelvic massexcision with renorrhaphy of [...] - 199 mg/dL Recent Labs 10/18/21 0420 04/19/22 1842 WBC 16.8* 24.5* HGB 7.8* 8.1* HCT 24.5* 26.5* PLATELET 339 384* Recent Labs 10/18/21 0420 10/17/211841 NA 135 135 K 4.3 5.4* CL [...] Jodi Delcid MD Urology PGY-2 Consult Pager #[phone] 10/18/21 6:21 AM * Op Note - Brian Pollock MD - 10/17/2021 12:06 PM EDT [facility] Operative Note Patient Name: Geeta Sadler : [id number] MR#: [id number] Case Date: 10/17/2021 Surgeon: Surgeon(s) and Role: Panel 1: * Brian Pollock MD - Primary * Alyson Bailey MD - Resident * Justice Cole MD - Assisting Attending Panel 2: * Jared Kiser MD - Primary * Blake Alvarado MD - Resident Panel 3: * Justice Cole MD - Primary Registered Nurse Measurement Supervisor: Chrissie Gómez RN Procedure(s) (LRB): LAPAROSCOPY,TOTAL HYST, UTERUS<250GM, REM TUBE &/OR OVARY, ROBOTIC ASSIST (WRVU 15) (N/A) LAPAROSCOPY,W\BILATERAL TOTAL PELVIC LYMPHADENECTOMY, PERIAORTIC LYMPH NODE SAMPLING, ROBOTIC (WRVU15.6) (N/A) INTRAOPERATIVE ID (MAPPING) SENTINEL LYMPH NODE,INCLUDES INJECTION (WRVU 2.5) (N/A) MODIFIER ROBOT,ENE XI (N/A) @EXPLORATORY LAPAROTOMY, WITH/WITHOUT BIOPSY(S) (WRVU [...] Alberto catheter. 2. Left lower quadrant 15 Swiss Patrice drain. Estimated Blood Loss: 700 mL mL. IV Fluid: 2 L of LR; 500 mL of 5% albumin; 900 mL normal saline. Urine Output: 400 mL. mL. Indication for surgery: This is a 56 y.o. woman who was referred by: Brian Pollock MD [facility] [place] [address] for a new diagnosis of grade 2-3 [...] described separately in the procedures below. 3. [place] lymph node mapping: A left and right [...] and the patient was sterilely draped. A Albreto catheter was inserted into the bladder. A [...] uterus and dilation of the cervix, a Soaker Hides device was inserted into the uterus for manipulation. An 8-mm transverse incision was made 5 cm above the umbilicus, through which a 8-mm da Blas trocarwas then inserted under direct visualization, verifying atraumatic entry. Additional 8-mm robotic trocars and a 12-mm right upper quadrant medical clerical assistant port were placed in the usual [...] At the end of the case, 15 Swiss Patrice drain was placed over the left [...] 12:43 PM EDT Repair Of Kidney Wound (78763) 10/17/2021 11:25 AM EDT ENDOMETRIAL CANCER Incise Bladder, +Ureter Cath (18056) 10/17/2021 11:25 AM EDT ENDOMETRIAL CANCER Cystourethroscopy, Ureter Catheter (52793) 10/17/2021 11:25 AM EDT ENDOMETRIAL CANCER Exploration Of Abdomen (87756) 10/17/2021 11:25 AM EDT ENDOMETRIAL CANCER MODIFIER ROBOT,DAVINCI XI 10/17/2021 11:25 AM EDT ENDOMETRIAL CANCER Intraop [place] Lymph Id W/Dye Injection (35529) 10/17/2021 11:25 AM EDT ENDOMETRIAL CANCER Lap, Pelvic Lymphadenectomy/Bx (79736) 10/17/2021 11:25 AM EDT ENDOMETRIAL CANCER Laparoscopy W Tot Hysterectuterus <=250 Gram W Tube/Ovary (28933) 10/17/2021 11:25 AM EDT ENDOMETRIAL CANCER POCT GLUCOSE Routine 10/17/2021 10:40 AM EDT documented in this encounter Results * POCT Glucose (10/20/2021 11:43 AM EDT) Glucose, POC 174 65 - 199 mg/dL [facility] Comment: Supplemental ranges: <140 mg/dL before meals <180 mg/dL all other times of the day Blood 10/20/2021 11:4 3 AM EDT 10/20/2021 11:43 AM EDT Brian Pollock MD POINT OF CARE TEST O RDERABLES [facility] [place] [address] * (ABNORMAL) Hemogram (10/20/2021 10:42 AM EDT) Pathologist [facility] White Blood Cell 14.4(H) 4.0 - 9.5 x10(3)/mc L [facility] Red Blood Cell 2.91(L) 4.00 - 5.21 x10(6)/mc L [facility] Hemoglobin 8.3(L) 11.7 - 15.5 g/dL [facility] Hematocrit 26.0(L) 35.7 - 45.8 % [facility] Mean Cell Volume 89.3 82.6 - 94.4 fL [facility] Mean Cell Hemoglobin 28.5 27.1 - 32.0 pg [facility] Mean Cell Hemoglobin Concentration 31.9 31.7 - 35.0 g/dL [facility] Platelet 324 145 - 357 x10(3)/ L [facility] RDW Standard Deviation 51.8(H) 37.0 - 46.0 fL [facility] RDW coefficient of variation 16.0(H) 11.5 - 14.1 % [facility] Mean Platelet Volume 11.0 7.6 - 12.9 fL [facility] NRBC% auto 0.1 % [facility] NRBC Absolute 0.020(H) 0.000 - 0.000 x10(3)/mc L [facility] Blood 10/20/2021 10:4 2 AM EDT 10/20/2021 10:56 AM EDT Narrative Resulting Agency Comment Spec In Lab Brian Pollock MD HEMATOLOGY ORDERABLE S [facility] [place] [address] * POCT Glucose (10/20/2021 7:42 AM EDT) Pathologist [facility] Glucose, POC 160 65 - 199 mg/dL [facility] Comment: Supplemental ranges: <140 mg/dL before meals <180 mg/dL all other times of the day Blood 10/20/2021 7:42 AM EDT 10/20/2021 7:42 AM EDT Brian Pollock MD POINT OF CARE TEST O RDERABLES [facility] [place] [address] * (ABNORMAL) Differential, Automated (10/20/2021 4:30 AM EDT) Neutrophil % 73.9 % [facility] Neutrophil Absolute 9.97(H) 1.70 - 6.10 x10(3)/ L [facility] Lymph % 18.0 % [facility] Lymphocytes Abs 2.4 0.9 - 3.2 x10(3)/ L [facility] Monocyte % 7.4 % [facility] Monocyte Abs 1.0(H) 0.3 - 0.9 x10(3)/ L [facility] Eos % 0.1 % [facility] Eosinophils Abs 0.0 0.0 - 0.4 x10(3)/ L [facility] Basophil % 0.2 % [facility] Baso Absolute 0.0 0.0 - 0.1 x10(3)/ L [facility] Immature Gran % 0.40 % [facility] Comment: Immature granulocytes(IG's)percentage and absolute count will include metamyelocytes, myelocytes, and promyelocytes. Blood smears from CBCs yielding IG's will be scanned manually for concordance. If this scan disagrees with the automated IG or if promyelocytes are noted, a manual differential will be performed. Immature Gran Absolute 0.06(H) 0.00 - 0.04 x10(3)/mc L [facility] Blood 10/20/2021 4:30 AM EDT 10/20/2021 4:58 AM EDT Narrative Resulting Agency Comment Spec In Lab lAyson Bailey MD HEMATOLOGY ORDERA BLES [facility] [place] [address] * (ABNORMAL) Hemogram (10/20/2021 4:30 AM EDT) White Blood Cell 13.5(H) 4.0 - 9.5 x10(3)/mc L [facility] Red Blood Cell 2.91(L) 4.00 - 5.21 x10(6)/mc L [facility] Hemoglobin 8.4(L) 11.7 - 15.5 g/dL [facility] Hematocrit 26.5(L) 35.7 - 45.8 % [facility] Mean Cell Volume 91.1 82.6 - 94.4 fL [facility] Mean Cell Hemoglobin 28.9 27.1 - 32.0 pg [facility] Mean Cell Hemoglobin Concentration 31.7 31.7 - 35.0 g/dL [facility] Platelet 314 145 - 357 x10(3)/mc L [facility] RDW Standard Deviation 51.8(H) 37.0 - 46.0 [facility] RDW coefficient of variation 15.9(H) 11.5 - 14.1 % [facility] Mean Platelet Volume 11.2 7.6 - 12.9 [facility] NRBC% auto 0.2 % [facility] NRBC Absolute 0.030(H) 0.000 - 0.000 x10(3)/ L [facility] Blood 10/20/2021 4:30 AM EDT 10/20/2021 4:58 AM EDT Narrative Resulting Agency Comment Spec In Lab Alyson Bailey MD HEMATOLOGY ORDERA BLES [facility] [place] [address] * Phosphorus (10/20/2021 4:30 AM EDT) Phosphorus 3.3 2.5 - 4.5 mg/dL [facility] Blood 10/20/2021 4:30 AM EDT 10/20/2021 4:57 AM EDT Narrative Resulting Agency Comment Spec In Lab Brian Pollock MD CHEMISTRY ORDERABLES Performing Organization Address [facility] de Phone Number [facility] [place] [address] * Magnesium (10/20/2021 4:30 AM EDT) Magnesium 0.89 0.69 - 1.07 mmol/L [facility] Blood 10/20/2021 4:30 AM EDT 10/20/2021 4:57 AM EDT Narrative Resulting Agency Comment Spec In Lab Brian Pollock MD CHEMISTRY ORDERABLES Performing Organization Address [facility] de Phone Number [facility] [place] [address] * (ABNORMAL) BMP w/fasting Glucose (10/20/2021 4:30 AM EDT) Glucose Fasting 145(H) 65 - 99 mg/dL [facility] Comment: ?Fasting* Glucose Interpretive Criteria Normal [...] of Diabetes Mellitus, Position Statement from the [place] [employer]. ??Diabetes Care, Volume 33, Supplement 1, Jul 2009 Blood Urea Nitrogen 13 8 - 18 mg/dL [facility] Creatinine 0.62(L) 0.70 - 1.20 mg/dL [facility] Sodium 134(L) 135 - 145 mmol/L [facility] Potassium 4.3 3.5 - 5.0 mmol/L [facility] Comment: Please note: ??Patients with WBC >100,000 may have falsely elevated Potassium levels. ??For accurate Potassium quantification in these patients send serum separator tube (gold top) for subsequent determinations. ??Contact the Clinical Chemistry Laboratory if there are any questions. Chloride 104 98 - 107 mmol/L [facility] Carbon Dioxide 21(L) 22 - 31 mmol/L [facility] Anion Gap 9 5 - 15 mmol/L [facility] Calcium 8.6 8.5 - 10.5 mg/dL [facility] Est Glomerular Filtration Rate 100 >=60 mL/min/1. 73 m?? [facility] Comment: This patient? s estimated glomerular [...] In Lab Brian Pollock MD CHEMISTRY ORDERABLES [facility] [place] [address] * POCT Glucose (10/20/2021 3:39 AM EDT) Glucose, POC 152 65 - 199 mg/dL [facility] Comment: Supplemental ranges: <140 mg/dL before meals <180 mg/dL all other times of the day Blood 10/20/2021 3:39 AM EDT 10/20/2021 3:39 AM EDT Brian Pollock MD POINT OF CARE TEST O PACO [facility] [place] [address] * POCT Glucose (10/19/2021 11:39 PM EDT) Glucose, POC 155 65 - 199 mg/dL [facility] Comment: Supplemental ranges: <140 mg/dL before meals <180 mg/dL all other times of the day Blood 10/19/2021 11:3 9 PM EDT 10/19/2021 11:39 PM EDT Brian Pollock MD POINT OF CARE TEST Wesley ANTONIO Performing Organization Address [facility]/ZIP Co de Phone Number [facility] [place] [address] * POCT Glucose (10/19/2021 7:52 PM EDT) Glucose, POC 167 65 - 199 mg/dL [facility] Comment: Supplemental ranges: <140 mg/dL before meals <180 mg/dL all other times of the day Blood 10/19/2021 7:52 PM EDT 10/19/2021 7:52 PM EDT Brian Pollock MD POINT OF CARE TEST Wesley ANTONIO [facility] [place] [address] * POCT Glucose (10/19/2021 4:07 PM EDT) Glucose, POC 158 65 - 199 mg/dL [facility] Comment: Supplemental ranges: <140 mg/dL before meals <180 mg/dL all other times of the day Blood 10/19/2021 4:07 PM EDT 10/19/2021 4:07 PM EDT Brian Pollock MD POINT OF CARE TEST O RDERABLES Performing Organization Address City/[facility]/ZIP Co de Phone Number [facility] [place] [address] * Transfuse RBC (10/19/2021 12:53 PM EDT) Brian Pollock MD NURSING TREATMENT OR DERABLES - BLOOD ADMIN * Transfuse RBC (10/19/2021 12:53 PM EDT) Brian Pollock MD NURSING TREATMENT OR DERABLES - BLOOD ADMIN * Creatinine Level Body Fluid TARI Drain (10/19/2021 12:22 PM EDT) Pathologist [facility] Creatinine, Fluid 0.9 mg/dL [facility] Comment: No reference range is available for the specimen type submitted. ??The performance of this assay for the submitted type has not been validated and results should be interpreted accordingly and with regard to the patient's clinical status. Creat, Fld Type TARI Drain [facility] TARI Drain 10/19/2021 12:2 2 PM EDT 10/19/2021 12:44 PM EDT Narrative Resulting Agency Comment Spec In Lab Brian Pollock MD BODY FLUIDS AND STOO LS ORDERABLES Performing Organization Address [facility]/ZIP Co de Phone Number [facility] [place] [address] * POCT Glucose (10/19/2021 11:37 AM EDT) Glucose, POC 181 65 - 199 mg/dL [facility] Comment: Supplemental ranges: <140 mg/dL before meals <180 mg/dL all other times of the day Blood 10/19/2021 11:3 7 AM EDT 10/19/2021 11:37 AM EDT Brian Pollock MD POINT OF CARE TEST O RDERABLES [facility] [place] [address] * (ABNORMAL) Differential, Automated (10/19/2021 8:25 AM EDT) Neutrophil % 71.8 % [facility] Neutrophil Absolute 9.81(H) 1.70 - 6.10 x10(3)/ L [facility] Lymph % 20.3 % [facility] Lymphocytes Abs 2.8 0.9 - 3.2 x10(3)/ L [facility] Monocyte % 7.2 % [facility] Monocyte Abs 1.0(H) 0.3 - 0.9 x10(3)/ L [facility] Eos % 0.1 % [facility] Eosinophils Abs 0.0 0.0 - 0.4 x10(3)/[facility] Basophil % 0.2 % [facility] Baso Absolute 0.0 0.0 - 0.1 x10(3)/mc L [facility] Immature Gran % 0.40 % [facility] Comment: Immature granulocytes(IG's)percentage and absolute count will include metamyelocytes, myelocytes, and promyelocytes. Blood smears from CBCs yielding IG's will be scanned manually for concordance. If this scan disagrees with the automated IG or if promyelocytes are noted, a manual differential will be performed. Immature Gran Absolute 0.06(H) 0.00 - 0.04 x10(3)/mc L [facility] Blood 10/19/2021 8:25 AM EDT 10/19/2021 8:30 AM EDT Narrative Resulting Agency Comment Spec In Lab Alyson Bailey MD HEMATOLOGY ORDERA BLES [facility] [place] [address] * (ABNORMAL) Hemogram (10/19/2021 8:25 AM EDT) White Blood Cell 13.7(H) 4.0 - 9.5 x10(3)/mc L [facility] Red Blood Cell 2.38(L) 4.00 - 5.21 x10(6)/mc L [facility] Hemoglobin 6.7(L) 11.7 - 15.5 g/dL [facility] Hematocrit 21.2(L) 35.7 - 45.8 % [facility] Mean Cell Volume 89.1 82.6 - 94.4 fL [facility] Mean Cell Hemoglobin 28.2 27.1 - 32.0 pg [facility] Mean Cell Hemoglobin Concentration 31.6(L) 31.7 - 35.0 g/dL [facility] Platelet 297 145 - 357 x10(3)/mc L [facility] RDW Standard Deviation 54.5(H) 37.0 - 46.0 fL [facility] RDW coefficient of variation 16.8(H) 11.5 - 14.1 % [facility] Mean Platelet Volume 11.4 7.6 - 12.9 fL [facility] NRBC% auto 0.0 % [facility] NRBC Absolute 0.000 0.000 - 0.000 x10(3)/mc L [facility] Blood 10/19/2021 8:25 AM EDT 10/19/2021 8:30 AM EDT Narrative Resulting Agency Comment Spec In Lab Alyson Bailey MD HEMATOLOGY ORDERA BLES Performing Organization Address City/[facility]/ZIP Co de Phone Number [facility] [place] [address] * POCT Glucose (10/19/2021 8:15 AM EDT) Glucose, POC 154 65 - 199 mg/dL [facility] Comment: Supplemental ranges: <140 mg/dL before meals <180 mg/dL all other times of the day Blood 10/19/2021 8:15 AM EDT 10/19/2021 8:15 AM EDT Brian Pollock MD POINT OF CARE TEST O RDERABLES [facility] [place] [address] * Prepare RBC (10/19/2021 5:50 AM EDT) Dispensed? Yes [facility] Blood 10/19/2021 5:50 AM EDT 10/19/2021 5:52 AM EDT Narrative Resulting Agency Comment Spec In Lab Brian Pollock MD BLOOD BANK PRODUCT O RDERABLES [facility] [place] [address] * POCT Glucose (10/19/2021 4:37 AM EDT) Glucose, POC 142 65 - 199 mg/dL [facility] Comment: Supplemental ranges: <140 mg/dL before meals <180 mg/dL all other times of the day Blood 10/19/2021 4:37 AM EDT 10/19/2021 4:37 AM EDT Brian Pollock MD POINT OF CARE TEST O RDERABLES [facility] [place] [address] * (ABNORMAL) Differential, Automated (10/19/2021 4:22 AM EDT) Neutrophil % 67.0 % [facility] Neutrophil Absolute 9.00(H) 1.70 - 6.10 x10(3)/ L [facility] Lymph % 24.8 % [facility] Lymphocytes Abs 3.3(H) 0.9 - 3.2 x10(3)/ L [facility] Monocyte % 7.1 % [facility] Monocyte Abs 1.0(H) 0.3 - 0.9 x10(3)/[facility] Eos % 0.2 % [facility] Eosinophils Abs 0.0 0.0 - 0.4 x10(3)/[facility] Basophil % 0.2 % [facility] Baso Absolute 0.0 0.0 - 0.1 x10(3)/[facility] Immature Gran % 0.70 % [facility] Comment: Immature granulocytes(IG's)percentage and absolute count will include metamyelocytes, myelocytes, and promyelocytes. Blood smears from CBCs yielding IG's will be scanned manually for concordance. If this scan disagrees with the automated IG or if promyelocytes are noted, a manual differential will be performed. Immature Gran Absolute 0.09(H) 0.00 - 0.04 x10(3)/[facility] Blood 10/19/2021 4:22 AM EDT 10/19/2021 4:35 AM EDT Narrative Resulting Agency Comment Spec In Lab Alyson Bailey MD HEMATOLOGY ORDERA BLES [facility] [place] [address] * (ABNORMAL) Hemogram (10/19/2021 4:22 AM EDT) White Blood Cell 13.4(H) 4.0 - 9.5 x10(3)/ L [facility] Red Blood Cell 2.24(L) 4.00 - 5.21 x10(6)/mc L [facility] Hemoglobin 6.5(L) 11.7 - 15.5 g/dL [facility] Hematocrit 20.8(L) 35.7 - 45.8 % [facility] Mean Cell Volume 92.9 82.6 - 94.4 fL [facility] Mean Cell Hemoglobin 29.0 27.1 - 32.0 pg [facility] Mean Cell Hemoglobin Concentration 31.3(L) 31.7 - 35.0 g/dL [facility] Platelet 287 145 - 357 x10(3)/mc L [facility] RDW Standard Deviation 56.3(H) 37.0 - 46.0 [facility] RDW coefficient of variation 16.7(H) 11.5 - 14.1 % [facility] Mean Platelet Volume 11.1 7.6 - 12.9 [facility] NRBC% auto 0.3 % [facility] NRBC Absolute 0.040(H) 0.000 - 0.000 x10(3)/mc L [facility] Blood 10/19/2021 4:22 AM EDT 10/19/2021 4:35 AM EDT Narrative Resulting Agency Comment Spec In Lab Alyson Bailey MD HEMATOLOGY ORDERA BLES [facility] [place] [address] * Phosphorus (10/19/2021 4:22 AM EDT) Phosphorus 4.0 2.5 - 4.5 mg/dL [facility] Blood 10/19/2021 4:22 AM EDT 10/19/2021 4:35 AM EDT Narrative Resulting Agency Comment Spec In Lab Brian Pollock MD CHEMISTRY ORDERABLES [facility] [place] [address] * Magnesium (10/19/2021 4:22 AM EDT) [facility] Magnesium 0.96 0.69 - 1.07 mmol/L [facility] Blood 10/19/2021 4:22 AM EDT 10/19/2021 4:35 AM EDT Narrative Resulting Agency Comment Spec In Lab Brian Pollock MD CHEMISTRY ORDERABLES Performing Organization Address [facility] Co de Phone Number [facility] [place] [address] * (ABNORMAL) BMP w/fasting Glucose (10/19/2021 4:22 AM EDT) Pathologist [facility] Glucose Fasting 139(H) 65 - 99 mg/dL [facility] Comment: ?Fasting* Glucose Interpretive Criteria Normal [...] of Diabetes Mellitus, Position Statement from the [place] [employer]. ??Diabetes Care, Volume 33, Supplement 1, Jul 2009 Blood Urea Nitrogen 22(H) 8 - 18 mg/dL [facility] Comment:result rechecked-[place] Creatinine 1.00 0.70 - 1.20 mg/dL [facility] Sodium 134(L) 135 - 145 mmol/L [facility] Potassium 4.5 3.5 - 5.0 mmol/L [facility] Comment: Please note: ??Patients with WBC >100,000 may have falsely elevated Potassium levels. ??For accurate Potassium quantification in these patients send serum separator tube (gold top) for subsequent determinations. ??Contact the Clinical Chemistry Laboratory if there are any questions. Chloride 104 98 - 107 mmol/L [facility] Carbon Dioxide 20(L) 22 - 31 mmol/L [facility] Anion Gap 10 5 - 15 mmol/L [facility] Calcium 8.0(L) 8.5 - 10.5 mg/dL [facility] Est Glomerular Filtration Rate 62 >=60 mL/min/1. 73 m?? [facility] Comment: This patient? s estimated glomerular [...] Pollock MD CHEMISTRY ORDERABLES Performing Organization Address [facility] Co de Phone Number [facility] [place] [address] * POCT Glucose (10/19/2021 12:09 AM EDT) Glucose, POC 178 65 - 199 mg/dL [facility] Comment: Supplemental ranges: <140 mg/dL before meals <180 mg/dL all other times of the day Blood 10/19/2021 12:0 9 AM EDT 10/19/2021 12:09 AM EDT Brian Pollock MD POINT OF CARE TEST O RDERABLES [facility] [place] [address] * (ABNORMAL) POCT Glucose (10/18/2021 7:48 PM EDT) Glucose, POC 223(H) 65 - 199 mg/dL [facility] Comment: Supplemental ranges: <140 mg/dL before meals <180 mg/dL all other times of the day Blood 10/18/2021 7:48 PM EDT 10/18/2021 7:48 PM EDT Brian Pollock MD POINT OF CARE TEST O PACO Performing Organization Address [facility] Co de Phone Number [facility] [place] [address] * POCT Glucose (10/18/2021 4:49 PM EDT) Glucose, POC 172 65 - 199 mg/dL [facility] Comment: Supplemental ranges: <140 mg/dL before meals <180 mg/dL all other times of the day Blood 10/18/2021 4:49 PM EDT 10/18/2021 4:49 PM EDT Biran Pollock MD POINT OF CARE TEST Wesley ANTONIO Performing Organization Address [facility] Co de Phone Number [facility] [place] [address] * POCT Glucose (10/18/2021 2:57 PM EDT) Glucose, POC 193 65 - 199 mg/dL [facility] Comment: Supplemental ranges: <140 mg/dL before meals <180 mg/dL all other times of the day Blood 10/18/2021 2:57 PM EDT 10/18/2021 2:57 PM EDT Brian Pollock MD POINT OF CARE TEST O PACO [facility] [place] [address] * (ABNORMAL) POCT Glucose (10/18/2021 1:49 PM EDT) Glucose, POC 219(H) 65 - 199 mg/dL [facility] Comment: Supplemental ranges: <140 mg/dL before meals <180 mg/dL all other times of the day Blood 10/18/2021 1:49 PM EDT 10/18/2021 1:49 PM EDT Brian Pollock MD POINT OF CARE TEST O PACO Performing Organization Address City/[facility]/ZIP Co de Phone Number [facility] [place] [address] * POCT Glucose (10/18/2021 12:46 PM EDT) Glucose, POC 153 65 - 199 mg/dL [facility] Comment: Supplemental ranges: <140 mg/dL before meals <180 mg/dL all other times of the day Blood 10/18/2021 12:4 6 PM EDT 10/18/2021 12:46 PM EDT Brian Pollock MD POINT OF CARE TEST O PACO Performing Organization Address City/[facility]/ZIP Co de Phone Number [facility] [place] [address] * POCT Glucose (10/18/2021 11:53 AM EDT) Glucose, POC 151 65 - 199 mg/dL [facility] Comment: Supplemental ranges: <140 mg/dL before meals <180 mg/dL all other times of the day Blood 10/18/2021 11:5 3 AM EDT 10/18/2021 11:53 AM EDT Brian Pollock MD POINT OF CARE TEST O PACO [facility] [place] [address] * POCT Glucose (10/18/2021 10:50 AM EDT) Glucose, POC 157 65 - 199 mg/dL [facility] Comment: Supplemental ranges: <140 mg/dL before meals <180 mg/dL all other times of the day Blood 10/18/2021 10:5 0 AM EDT 10/18/2021 10:50 AM EDT Brian Pollock MD POINT OF CARE TEST O PACO [facility] [place] [address] * POCT Glucose (10/18/2021 9:47 AM EDT) Glucose, POC 180 65 - 199 mg/dL [facility] Comment: Supplemental ranges: <140 mg/dL before meals <180 mg/dL all other times of the day Blood 10/18/2021 9:47 AM EDT 10/18/2021 9:47 AM EDT Brian Pollock MD POINT OF CARE TEST O PACO [facility] [place] [address] * POCT Glucose (10/18/2021 8:45 AM EDT) Glucose, POC 120 65 - 199 mg/dL [facility] Comment: Supplemental ranges: <140 mg/dL before meals <180 mg/dL all other times of the day Blood 10/18/2021 8:45 AM EDT 10/18/2021 8:45 AM EDT Brian Pollock MD POINT OF CARE TEST O PACO [facility] [place] [address] * POCT Glucose (10/18/2021 7:43 AM EDT) Glucose, POC 128 65 - 199 mg/dL [facility] Comment: Supplemental ranges: <140 mg/dL before meals <180 mg/dL all other times of the day Blood 10/18/2021 7:43 AM EDT 10/18/2021 7:43 AM EDT Brian Pollock MD POINT OF CARE TEST O PACO Performing Organization Address [facility] de Phone Number [facility] [place] [address] * POCT Fingerstick Glucose (10/18/2021 7:42 AM EDT) 10/18/2021 7:42 AM EDT Brian Pollock MD POINT OF CARE TEST O [place] * POCT Glucose (10/18/2021 6:32 AM EDT) Glucose, POC 126 65 - 199 mg/dL [facility] Comment: Supplemental ranges: <140 mg/dL before meals <180 mg/dL all other times of the day Blood 10/18/2021 6:32 AM EDT 10/18/2021 6:32 AM EDT Brian Pollock MD POINT OF CARE TEST O PACO Performing Organization Address [facility] Co de Phone Number [facility] [place] [address] * POCT Glucose (10/18/2021 5:17 AM EDT) Glucose, POC 120 65 - 199 mg/dL [facility] Comment: Supplemental ranges: <140 mg/dL before meals <180 mg/dL all other times of the day Blood 10/18/2021 5:17 AM EDT 10/18/2021 5:17 AM EDT Brian Pollock MD POINT OF CARE TEST O RDERABLES [facility] [place] [address] * (ABNORMAL) Hemoglobin A1c (10/18/2021 4:20 AM EDT) Hemoglobin A1c 8.0(H) 4.3 - 5.6 % [facility] Mellitus, Diabetes Care 2013; 36: Suppl. 1, C47-53 Estimated Average Glucose 181 mg/dL [facility] Comment: [...] into estimated average glucose values. ??Diabetes Care 2008:31(8):2533-2372. Blood Venous Draw / Unknown 10/18/2021 4:20 AM EDT 10/18/2021 8:23 AM EDT Narrative Resulting Agency Comment Spec In Lab Alyson Bailey MD CHEMISTRY ORDERAB LES [facility] [place] [address] * (ABNORMAL) Differential, Automated (10/18/2021 4:20 AM EDT) Neutrophil % 84.2 % [facility] Neutrophil Absolute 14.13(H) 1.70 - 6.10 x10(3)/mc L [facility] Lymph % 8.5 % [facility] Lymphocytes Abs 1.4 0.9 - 3.2 x10(3)/mc L [facility] Monocyte % 6.7 % [facility] Monocyte Abs 1.1(H) 0.3 - 0.9 x10(3)/mc L [facility] Eos % 0.0 % [facility] Eosinophils Abs 0.0 0.0 - 0.4 x10(3)/mc L [facility] Basophil % 0.1 % [facility] Baso Absolute 0.0 0.0 - 0.1 x10(3)/mc L [facility] Immature Gran % 0.50 % [facility] Comment: Immature granulocytes(IG's)percentage and absolute count will include metamyelocytes, myelocytes, and promyelocytes. Blood smears from CBCs yielding IG's will be scanned manually for concordance. If this scan disagrees with the automated IG or if promyelocytes are noted, a manual differential will be performed. Immature Gran Absolute 0.08(H) 0.00 - 0.04 x10(3)/mc L [facility] Blood 10/18/2021 4:20 AM EDT 10/18/2021 4:43 AM EDT Narrative Resulting Agency Comment Spec In Lab Alyson Bailey MD HEMATOLOGY ORDERA BLES [facility] [place] [address] * (ABNORMAL) Hemogram (10/18/2021 4:20 AM EDT) White Blood Cell 16.8(H) 4.0 - 9.5 x10(3)/mc L [facility] Red Blood Cell 2.74(L) 4.00 - 5.21 x10(6)/mc L [facility] Hemoglobin 7.8(L) 11.7 - 15.5 g/dL [facility] Hematocrit 24.5(L) 35.7 - 45.8 % [facility] Mean Cell Volume 89.4 82.6 - 94.4 fL [facility] Mean Cell Hemoglobin 28.5 27.1 - 32.0 pg [facility] Mean Cell Hemoglobin Concentration 31.8 31.7 - 35.0 g/dL [facility] Platelet 339 145 - 357 x10(3)/mc L [facility] RDW Standard Deviation 52.2(H) 37.0 - 46.0 [facility] RDW coefficient of variation 16.2(H) 11.5 - 14.1 % [facility] Mean Platelet Volume 11.6 7.6 - 12.9 [facility] NRBC% auto 0.0 % [facility] NRBC Absolute 0.000 0.000 - 0.000 x10(3)/ L [facility] Blood 10/18/2021 4:20 AM EDT 10/18/2021 4:43 AM EDT Narrative Resulting Agency Comment Spec In Lab Alyson Bailey MD HEMATOLOGY ORDERA BLES [facility] [place] [address] * Phosphorus (10/18/2021 4:20 AM EDT) Phosphorus 2.8 2.5 - 4.5 mg/dL [facility] Blood 10/18/2021 4:20 AM EDT 10/18/2021 4:43 AM EDT Narrative Resulting Agency Comment Spec In Lab Brian Pollock MD CHEMISTRY ORDERABLES Performing Organization Address [facility] de Phone Number [facility] [place] [address] * Magnesium (10/18/2021 4:20 AM EDT) Magnesium 0.69 0.69 - 1.07 mmol/L [facility] Blood 10/18/2021 4:20 AM EDT 10/18/2021 4:43 AM EDT Narrative Resulting Agency Comment Spec In Lab Brian Pollock MD CHEMISTRY ORDERABLES Performing Organization Address [facility] de Phone Number [facility] [place] [address] * (ABNORMAL) BMP w/fasting Glucose (10/18/2021 4:20 AM EDT) Glucose Fasting 113(H) 65 - 99 mg/dL [facility] Comment: ?Fasting* Glucose Interpretive Criteria Normal [...] of Diabetes Mellitus, Position Statement from the [place] [employer]. ??Diabetes Care, Volume 33, Supplement 1, Jul 2009 Blood Urea Nitrogen 14 8 - 18 mg/dL [facility] Creatinine 0.73 0.70 - 1.20 mg/dL [facility] Sodium 135 135 - 145 mmol/L [facility] Potassium 4.3 3.5 - 5.0 mmol/L [facility] Comment: result rechecked-slw Please note: ??Patients with WBC >100,000 may have falsely elevated Potassium levels. ??For accurate Potassium quantification in these patients send serum separator tube (gold top) for subsequent determinations. ??Contact the Clinical Chemistry Laboratory if there are any questions. Chloride 103 98 - 107 mmol/L [facility] Carbon Dioxide 19(L) 22 - 31 mmol/L [facility] Anion Gap 13 5 - 15 mmol/L [facility] Calcium 8.0(L) 8.5 - 10.5 mg/dL [facility] Est Glomerular Filtration Rate 91 >=60 mL/min/1. 73 m?? [facility] Comment: This patient? s estimated glomerular [...] In Lab Brian Pollock MD CHEMISTRY ORDERABLES [facility] [place] [address] * POCT Glucose (10/18/2021 4:15 AM EDT) Glucose, POC 115 65 - 199 mg/dL [facility] Comment: Supplemental ranges: <140 mg/dL before meals <180 mg/dL all other times of the day Blood 10/18/2021 4:15 AM EDT 10/18/2021 4:15 AM EDT Brian Pollock MD POINT OF CARE TEST O PACO [facility] [place] [address] * POCT Glucose (10/18/2021 3:40 AM EDT) Glucose, POC 118 65 - 199 mg/dL [facility] Comment: Supplemental ranges: <140 mg/dL before meals <180 mg/dL all other times of the day Blood 10/18/2021 3:40 AM EDT 10/18/2021 3:40 AM EDT Brian Pollock MD POINT OF CARE TEST Wesley ANTONIO Performing Organization Address City/[facility]/ZIP Co de Phone Number [facility] [place] [address] * POCT Glucose (10/18/2021 3:02 AM EDT) Glucose, POC 108 65 - 199 mg/dL [facility] Comment: Supplemental ranges: <140 mg/dL before meals <180 mg/dL all other times of the day Blood 10/18/2021 3:02 AM EDT 10/18/2021 3:02 AM EDT Brian Pollock MD POINT OF CARE TEST Wesley ANTONIO [facility] [place] [address] * POCT Glucose (10/18/2021 2:29 AM EDT) Glucose, POC 115 65 - 199 mg/dL [facility] Comment: Supplemental ranges: <140 mg/dL before meals <180 mg/dL all other times of the day Blood 10/18/2021 2:29 AM EDT 10/18/2021 2:29 AM EDT Brian Pollock MD POINT OF CARE TEST O PACO Performing Organization Address City/[facility]/ZIP Co de Phone Number [facility] [place] [address] * POCT Glucose (10/18/2021 1:09 AM EDT) Glucose, POC 148 65 - 199 mg/dL [facility] Comment: Supplemental ranges: <140 mg/dL before meals <180 mg/dL all other times of the day Blood 10/18/2021 1:09 AM EDT 10/18/2021 1:09 AM EDT Brian Pollock MD POINT OF CARE TEST O PACO Performing Organization Address [facility] Co de Phone Number [facility] [place] [address] * POCT Glucose (10/17/2021 11:58 PM EDT) Glucose, POC 171 65 - 199 mg/dL [facility] Comment: Supplemental ranges: <140 mg/dL before meals <180 mg/dL all other times of the day Blood 10/17/2021 11:5 8 PM EDT 10/17/2021 11:58 PM EDT Brian Pollock MD POINT OF CARE TEST O PACO Performing Organization Address City/[facility] Co de Phone Number [facility] [place] [address] * (ABNORMAL) POCT Glucose (10/17/2021 10:51 PM EDT) Glucose, POC (H) 65 - 199 mg/dL [facility] Comment: Supplemental ranges: <140 mg/dL before meals <180 mg/dL all other times of the day Blood 10/17/2021 10:5 1 PM EDT 10/17/2021 10:51 PM EDT Brian Pollock MD POINT OF CARE TEST O PACO [facility] [place] [address] * (ABNORMAL) POCT Glucose (10/17/2021 10:09 PM EDT) Glucose, POC 252(H) 65 - 199 mg/dL [facility] Comment: Supplemental ranges: <140 mg/dL before meals <180 mg/dL all other times of the day Blood 10/17/2021 10:0 9 PM EDT 10/17/2021 10:09 PM EDT Brian Pollock MD POINT OF CARE TEST Wesley ANTONIO Performing Organization Address [facility]/ZIP Co de Phone Number [facility] [place] [address] * (ABNORMAL) POCT Glucose (10/17/2021 7:56 PM EDT) Glucose, POC 229(H) 65 - 199 mg/dL [facility] Comment: Supplemental ranges: <140 mg/dL before meals <180 mg/dL all other times of the day Blood 10/17/2021 7:56 PM EDT 10/17/2021 7:56 PM EDT Brian Pollock MD POINT OF CARE TEST O PACO [facility] [place] [address] * (ABNORMAL) POCT Glucose (10/17/2021 6:48 PM EDT) [facility] Glucose, POC 254(H) 65 - 199 mg/dL [facility] Comment: Supplemental ranges: <140 mg/dL before meals <180 mg/dL all other times of the day Blood 10/17/2021 6:48 PM EDT 10/17/2021 6:48 PM EDT Brian Pollock MD POINT OF CARE TEST O RDERABLES Performing Organization Address City/[facility]/ZIP Co de Phone Number [facility] [place] [address] * Scan, Peripheral Blood (10/17/2021 6:42 PM EDT) [facility] Plat estimate Increased [facility] RBC Morphology Abnormal [facility] Polychromasia Present >5/HPF [facility] Blood 10/17/2021 6:42 PM EDT 10/17/2021 6:59 PM EDT Narrative Resulting Agency Comment Spec In Lab Trino Krishnan CRNA HEMATOLOGY ORDERABL ES Performing Organization Address [facility] Co de Phone Number [facility] [place] [address] * (ABNORMAL) Differential, Automated (10/17/2021 6:42 PM EDT) [facility] Neutrophil % 88.9 % [facility] Neutrophil Absolute 21.82(H) 1.70 - 6.10 x10(3)/mc L [facility] Lymph % 5.8 % [facility] Lymphocytes Abs 1.4 0.9 - 3.2 x10(3)/mc L [facility] Monocyte % 4.2 % [facility] Monocyte Abs 1.0(H) 0.3 - 0.9 x10(3)/mc L [facility] Eos % 0.0 % [facility] Eosinophils Abs 0.0 0.0 - 0.4 x10(3)/mc L [facility] Basophil % 0.4 % [facility] Baso Absolute 0.1 0.0 - 0.1 x10(3)/[facility] Immature Gran % 0.70 % [facility] Comment: Immature granulocytes(IG's)percentage and absolute count will include metamyelocytes, myelocytes, and promyelocytes. Blood smears from CBCs yielding IG's will be scanned manually for concordance. If this scan disagrees with the automated IG or if promyelocytes are noted, a manual differential will be performed. Immature Gran Absolute 0.16(H) 0.00 - 0.04 x10(3)/[facility] Blood 10/17/2021 6:42 PM EDT 10/17/2021 6:59 PM EDT Narrative Resulting Agency Comment Spec In Lab Trino Krishnan [facility] HEMATOLOGY ORDERABL ES [facility] [place] [address] * (ABNORMAL) Hemogram (10/17/2021 6:42 PM EDT) White Blood Cell 24.5(H) 4.0 - 9.5 x10(3)/[facility] Red Blood Cell 2.90(L) 4.00 - 5.21 x10(6)/ L [facility] Hemoglobin 8.1(L) 11.7 - 15.5 g/dL [facility] Hematocrit 26.5(L) 35.7 - 45.8 % [facility] Mean Cell Volume 91.4 82.6 - 94.4 fL [facility] Mean Cell Hemoglobin 27.9 27.1 - 32.0 pg [facility] Mean Cell Hemoglobin Concentration 30.6(L) 31.7 - 35.0 g/dL [facility] Platelet 384(H) 145 - 357 x10(3)/[facility] RDW Standard Deviation 54.4(H) 37.0 - 46.0 fL [facility] RDW coefficient of variation 16.1(H) 11.5 - 14.1 % [facility] Mean Platelet Volume 11.5 7.6 - 12.9 fL [facility] NRBC% auto 0.0 % [facility] NRBC Absolute 0.000 0.000 - 0.000 x10(3)/mc L [facility] Blood 10/17/2021 6:42 PM EDT 10/17/2021 6:59 PM EDT Narrative Resulting Agency Comment Spec In Lab Trino Krishnan CRNA HEMATOLOGY ORDERABL ES Performing Organization Address [facility]/ZIP Co de Phone Number [facility] [place] [address] * (ABNORMAL) Magnesium (10/17/2021 6:42 PM EDT) Magnesium 0.67(L) 0.69 - 1.07 mmol/L [facility] Blood 10/17/2021 6:42 PM EDT 10/17/2021 6:59 PM EDT Narrative Resulting Agency Comment Spec In Lab Jd Pinto MD CHEMISTRY ORDERABLES Performing Organization Address City/[facility]/ZIP Co de Phone Number [facility] [place] [address] * (ABNORMAL) Basic Metabolic Panel (non-fasting) (10/17/2021 6:42 PM EDT) Glucose 221(H) 65 - 199 mg/dL [facility] Comment:Diabetes: >=200 mg/d L plus symptoms Blood Urea Nitrogen 14 8 - 18 mg/dL [facility] Creatinine 1.09 0.70 - 1.20 mg/dL [facility] Sodium 135 135 - 145 mmol/L [facility] Potassium 5.4(H) 3.5 - 5.0 mmol/L [facility] Comment: Please note: ??Patients with WBC >100,000 may have falsely elevated Potassium levels. ??For accurate Potassium quantification in these patients send serum separator tube (gold top) for subsequent determinations. ??Contact the Clinical Chemistry Laboratory if there are any questions. Chloride 104 98 - 107 mmol/L [facility] Carbon Dioxide 14(L) 22 - 31 mmol/L [facility] Anion Gap 17(H) 5 - 15 mmol/L [facility] Calcium 7.5(L) 8.5 - 10.5 mg/dL [facility] Est Glomerular Filtration Rate 56(L) >=60 mL/min/1. 73 m?? [facility] Comment: This patient? s estimated glomerular [...] In Lab Jd Pinto MD CHEMISTRY ORDERABLES [facility] [place] [address] * XR Fluoro No Rad <1Hr - OR Use (10/17/2021 6:40 PM EDT) Narrative Dicom, Auditing User - 10/17/2021 6:40 PM EDT This exam is auto-finalizing. No interpretation was done. Brian Pollock MD IMG FLUORO ORDERABLE S * (ABNORMAL) BLOOD GAS 2 ARTERIAL (10/17/2021 4:56 PM EDT) pH, Arterial 7.24(Crit ical) 7.35 - 7.45 [facility] Comment: Noted by instrumentation controls engineer. Critical notified to Chetan Daniel by instrumentation controls engineer immediately following run time. PCO2, Arterial 43 35 - 45 mmHg [facility] PO2, Arterial 207(H) 85 - 104 mmHg [facility] Bicarbonate, Arterial 17.9(L) 20.0 - 26.0 mmol/L [facility] Base Excess, Arterial -9.4(L) -3.0 - 3.0 mmol/L [facility] Hgb Blood Gas 9.2(L) 11.7 - 15.5 g/dL [facility] Oxyhemoglobin, Arterial 95.6 94.0 - 97.0 % [facility] Carboxyhemoglobi n, Arterial 3.9 % [facility] Comment: Nonsmokers: 0.5-1.5% COHB Smokers: Variable, but usually less than 10% Toxic: 20-30% COHB Lethal: Greater than 60% COHB Methemoglobin, Arterial 0.2 <=1.5 % [facility] Na Whole Blood 130(L) 135 - 145 mmol/L [facility] K Whole Blood 5.1(H) 3.5 - 5.0 mmol/L [facility] Comment: Please note: Patients with WBC >100,000 may have falsely elevated Potassium levels. Contact the Clinical Chemistry Laboratory if there are any questions. ICa Whole Blood 1.02(L) 1.15 - 1.33 mmol/L [facility] Comment: Note: ??Total bilirubin higher than 20 mg/dL may lead to falsely low ionized calcium. CL Whole Blood 104 98 - 107 mmol/L [facility] Gluc Whole Bld 303(H) 65 - 199 mg/dL [facility] Comment:Diabetes: >=200 mg/d L plus symptoms. Lactate WB 3.8(H) 0.5 - 2.2 mmol/L [facility] Blood 10/17/2021 4:56 PM EDT 10/17/2021 4:56 PM EDT Brian Pollock MD POINT OF CARE TEST O RDERABLES [facility] [place] [address] * (ABNORMAL) BLOOD GAS 2 ARTERIAL (10/17/2021 3:59 PM EDT) pH, Arterial 7.24(Criti thea) 7.35 - 7.45 [facility] Comment: Noted by instrumentation controls engineer. Critical not notified by instrumentation controls engineer immediately following run time. PCO2, Arterial 38 35 - 45 mmHg [facility] PO2, Arterial 202(H) 85 - 104 mmHg [facility] Bicarbonate, Arterial 15.7(L) 20.0 - 26.0 mmol/L [facility] Base Excess, Arterial -11.7(L) -3.0 - 3.0 mmol/L [facility] Hgb Blood Gas 10.3(L) 11.7 - 15.5 g/dL [facility] Oxyhemoglobin, Arterial 95.8 94.0 - 97.0 % [facility] Carboxyhemoglob in, Arterial 3.7 % [facility] Comment: Nonsmokers: 0.5-1.5% COHB Smokers: Variable, but usually less than 10% Toxic: 20-30% COHB Lethal: Greater than 60% COHB Methemoglobin, Arterial 0.2 <=1.5 % [facility] Na Whole Blood 128(L) 135 - 145 mmol/L [facility] K Whole Blood 6.0(H) 3.5 - 5.0 mmol/L [facility] Comment: Please note: Patients with WBC >100,000 may have falsely elevated Potassium levels. Contact the Clinical Chemistry Laboratory if there are any questions. ICa Whole Blood 1.09(L) 1.15 - 1.33 mmol/L [facility] Comment: Note: ??Total bilirubin higher than 20 mg/dL may lead to falsely low ionized calcium. CL Whole Blood 102 98 - 107 mmol/L [facility] Gluc Whole Bld 330(H) 65 - 199 mg/dL [facility] Comment:Diabetes: >=200 mg/d L plus symptoms. Lactate WB 2.4(H) 0.5 - 2.2 mmol/L [facility] Blood 10/17/2021 3:59 PM EDT 10/17/2021 3:59 PM EDT Brian Pollock MD POINT OF CARE TEST O RDERABLES Performing Organization Address [facility]/ZIP Co de Phone Number [facility] [place] [address] * Specimen to Pathology (10/17/2021 3:59 PM EDT) AP Specimen 10/17/2021 3:59 PM EDT 10/17/2021 3:59 PM EDT Narrative [facility] - 10/17/2021 3:59 PM EDT Specimen requisition ordered. ??Separate Pathology report to follow Brian Pollock MD PATHOLOGY/CYTOLOGY O RDERABLES Performing Organization Address City/[facility]/ZIP Co de Phone Number [facility] [place] [address] * Prepare RBC (10/17/2021 3:10 PM EDT) Dispensed? Yes [facility] Blood 10/17/2021 3:10 PM EDT 10/17/2021 3:07 PM EDT Narrative Resulting Agency Comment Spec In Lab Brian Pollock MD BLOOD BANK PRODUCT O RDERABLES Performing Organization Address City/[facility]/ZIP Co de Phone Number [facility] [place] [address] * Specimen to Pathology (10/17/2021 2:33 PM EDT) AP Specimen 10/17/2021 2:33 PM EDT 10/17/2021 2:33 PM EDT Narrative [facility] - 10/17/2021 2:33 PM EDT Specimen requisition ordered. ??Separate Pathology report to follow Brian Pollock MD PATHOLOGY/CYTOLOGY O PACO Performing Organization Address [facility] [place] [address] * Specimen to Pathology (10/17/2021 12:45 PM EDT) AP Specimen 10/17/2021 12:4 5 PM EDT 10/17/2021 12:45 PM EDT [facility] - 10/17/2021 12:45 PM EDT Specimen requisition ordered. ??Separate Pathology report to follow Brian Pollock MD PATHOLOGY/CYTOLOGY O PACO Performing Organization Address [facility] [place] [address] * Specimen to Pathology (10/17/2021 12:45 PM EDT) AP Specimen 10/17/2021 12:4 5 PM EDT 10/17/2021 12:45 PM EDT [facility] - 10/17/2021 12:45 PM EDT Specimen requisition ordered. ??Separate Pathology report to follow Brian Pollock MD PATHOLOGY/CYTOLOGY Wesley ANTONIO Performing Organization Address [facility] [place] [address] * Surgical Pathology Report (10/17/2021 12:43 PM EDT) Final Diagnosis [id number] ? Location: 1WST; 0101; A The signing pathologist has (i) examined the relevant preparation(s) for the specimen(s) and (ii) rendered or confirmed the diagnosis(es). . 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 SPECIMEN ANALYZED: ??[id number] C10 ANALYSIS: ?Examination of methylation of the [...] is performed by methylation-specific PCR using the [employer] FAST real-time PCR instrument. ??The percentage of [...] [facility] at [facility]. It has not been cleared or approved by the FDA. The laboratory is regulated under CLIA as qualified to perform high-complexity testing. This test is used for clinical purposes. It should not be regarded as investigational or for research. REFERENCES: 1. ??Tru S, Julio Cesar M, Alexis T, Jose REYNOLDS, Katherine M, et al. Epigenetic profiling of synchronous colorectal neoplasias by quantitative DNA methylation analysis. ??Modern Pathology , 2006, 19:8247-2063. 2. ??Alejandra H, Brooke P, Dudley L, [...] Med Rea, ??2012, 49(3): 151-157. 4. ??Katie VIZCARRA, Alda TEE, Endometrial tumour BRAF mutations and MLH1 promoter methylation as predictors of germline mismatch repair gene mutation status. ? Fam Cancer, ??2014, 13(1): 1-12. . RESULTS _ Electronically signed by: ?Gregg Springer PhD Verified: ??11/06/2021 23:22 ??Molecular Pathologist Performed at: ??-[facility] Dept. of Pathology, [place], [place] ?Surgical Pathology DIAGNOSIS A - Right [...] MD Verified: ??11/01/2021 16:02 ??Pathologist Performed at: ??-[facility] Dept. of Pathology, [place], [place] SYNOPTIC Specimen Parts: ??A - D [...] Nodes with Macrometastasis: ??1 ?Number of Pelvic [place] Nodes with Macrometastasis: ??0 ? Total Number of Pelvic Nodes with Micrometastasis: ??0 ?Number of Pelvic [place] Nodes with Micrometastasis: ??0 ? Laterality of Pelvic Node(s) with Tumor: ??Left non-sentinel ? Size of Largest Pelvic [place] Metastatic Deposit: ??4 mm . SYNOPTIC ? Lymph Nodes Examined ?Total Number of Pelvic Nodes Examined: ??3 ?Number of Pelvic [place] Nodes Examined: ??3 ?Total Number of Para-aortic Nodes Examined: ??0 Distant Metastasis ? Distant Site(s) Involved: ??Omentum - focally present in omental adhesion Pathologic Stage Classification (pTNM, AJCC 8th Edition) ? pT Category: ??pT3a ? pN Category: ??pN1a FIGO Stage ? FIGO Stage: ??IIIC1 Additional Findings ? Additional Findings: ??None identified Tumor Block(s): ??C10 CAP [facility] May 2021 Release DISCUSSION Immunohistochemistry was previously [...] ordered and will be reported separately. IHC [place] Lymph Node Protocol For Endometrial Carcinoma: Formalin-fixed, [...] x 0.6 x 0.5 cm, fimbriated. Sections/Processing: Sales And Marketing Director sections in 27 cassettes as follows: ?C1-C2: ??Sales And Marketing Director cervix, longitudinal sections ?C3-C7: ??Sales And Marketing Director presumed lower uterine segment, not full thickness, ? specimen is inked orange on cervical side, longitudinal sections submitted ? sequentially ?C8: ??Sales And Marketing Director inked serosa with tumor and myometrium ?C9-C10: ??Sales And Marketing Director inked serosa with full thickness endomyometrium and tumor, ? bisected ?C11-C12: ??Sales And Marketing Director largest fragment tumor ?C13-C16: ??Sales And Marketing Director additional small yellow-pelletier fragments of tumor ?C17-C18: ??Sales And Marketing Director fragment of endometrial cavity, bisected ?C19: ??Sales And Marketing Director ovary #1 with cyst ?C20-C21: ??Fallopian tube #1, serially sectioned and entirely submitted, bisected ? fimbria in C20 ?C22-C24: ??Sales And Marketing Director ovary #2, with immediately adjacent tumor ?C25-C27: ??Fallopian tube #2, serially sectioned and entirely submitted, bisected ? fimbria in C25 ?C28-C32: ??Sales And Marketing Director lower uterine segment, longitudinally sectioned ?C33-C36: Additional assistance representative lower uterine segment from separate fragment of ? cervical tissue, longitudinally sectioned ?C37-C40: Sales And Marketing Director attached adipose tissue to serosal surface, presumed ? omentum D - Labeled/Fixative: Left pelvic lymph node, fresh. Quantity/Size: Single, 2.5 x 1.5 x 0.9 cm. Tissue Description: Firm smooth light pelletier nodule Sections/Processing: Serially sectioned and entirely submitted in 3 cassettes labeled D1-D3. ??lv 11/06/2021 11:22 PM EDT [facility] LYMPH NODE SPECIMEN / Unknown 10/17/2021 12:43 PM EDT 10/17/2021 12:43 PM EDT SENTINEL LYMPH NODE / Unknown 10/17/2021 12:43 PM EDT 10/17/2021 12:43 PM EDT Uterine Corpus 10/17/2021 12 :43 PM EDT 10/17/2021 12:43 PM EDT LYMPH NODE SPECIMEN / Unknown 10/17/2021 12:43 PM EDT 10/17/2021 12:43 PM EDT Brian Pollock MD PATHOLOGY/CYTOLOGY O RDERABLES Performing Organization Address City/[facility]/ZIP Co de Phone Number [facility] [place] [address] * (ABNORMAL) POCT Glucose (10/17/2021 10:40 AM EDT) Glucose, POC 201(H) 65 - 199 mg/dL [facility] Comment: Supplemental ranges: <140 mg/dL before meals <180 mg/dL all other times of the day Blood 10/17/2021 10:4 0 AM EDT 10/17/2021 10:40 AM EDT Brian Pollock MD POINT OF CARE TEST O PACO Performing Organization Address [facility] Co de Phone Number [facility] [place] [address] documented in this encounter Visit Diagnoses Not on filedocumented in this encounter Admitting Diagnoses Diagnosis Post-operative [...] 37.5 grams., Routine ibuprofen (Advil) tablet 600 mg 600 mg, Oral, EVERY 6 HOURS PRN, Starting on Taylor 10/19/21 at 0700, Until Sat10/20/21 at 1417, Pain, Administer orally with milk or food to minimize GI irritation. Maximum dose of 3,200 mg from all sources in 24 hours, Routine indocyanine green (Ic-Green) injection ONCE PRN, Starting on 10/17/21 at 1258, Until Sat10/20/21 at 1417, Intra-Operative (Intra-Procedure), Routine Given 10/17/2021 12:58 PM EDT 6.25 mg 19- Surgical Site insulin glargine-ygfn (Semglee) (100 unit/mL) subcutaneous injection [...] Given 10/19/2021 8:07 PM EDT 1 Units lidocaine-EPINEPHrine (1% - 1:100,000) injection ONCE PRN, Starting on Sat10/17/21 at 1215, Until Sat10/20/21 at 1417, Intra-Operative (Intra-Procedure), Routine Given 10/17/2021 12:15 PM EDT 25 mLs 19- Surgical Site nicotine (Nicoderm CQ) 21 mg/24 hr patch [...] Given 10/18/2021 2:08 PM EDT 5 mg senna-docusate (Pericolace) 8.6-50 mg per tablet 2 [...] Given 10/19/2021 9:00 AM EDT 5 mLs thrombin (Bovine) (Thrombinar) kit ONCE PRN, Starting on Sat10/17/21 at 1648, Until Sat10/20/21 at 1417, Intra-Operative (Intra-Procedure) Given 10/17/2021 4:48 PM EDT 20,000 Units 19- Surgical Site [...] indicated., Routine 0001 (Given - Provider: Amanda Mendenhall RN)0610 (Given - Provider: Amanda Mendenhall RN)1255 (Given - Provider: Carol Barron RN)1759 (Given - Provider: Carol Barron RN) 0009 (Given - Provider: Lupe Millan RN)0514 (Given - Provider: Lupe Millan RN)1134 (Given - Provider: Amira Conrad, DORENE)1803 (Given - Provider: Melvi Calvin, DORENE) 0014 (Given - Provider: Mera Mckeon, DORENE)0526 (Given - Provider: Mera Mckeon, DORENE)1141 (Given - Provider: Zoe Ashraf RN) atorvastatin (Lipitor) tablet 80 mg 80 mg, [...] Barron RN) 0929 (Given - Provider: Amira Conrad, DORENE) 0840 (Given - Provider: Zoe Ashraf RN) [...] 39g CHO) 0925 (Given - Provider: Amira Conrad RN)1311 (Given - Provider: Amira Conrad RN)1803 (Not Given - Provider: Melvi Calvin RN [...] Barron RN) 0009 (Given - Provider: Lupe Millan, RN) magnesium sulfate 2 g in sterile [...] RN) 0839 (Patch Applied - Provider: Zoe Ashraf RN) nicotine (NICODERM CQ) 21 mg/24 hr patch Patch Removal(Linked Group 3) Transdermal, DAILY, First dose on Sat10/18/21 at 0900, Until Discontinued, Remove nicotine 21 mg/24 hr patch 0900 (Patch Not Removed (add comment) - Provider: Carol Barron RN - Comment: patch not present) 0900 (Patch Removed - Provider: Amira Conrad RN) 0900 (Patch Removed - Provider: Zoe Ashraf RN) nicotine (NICODERM CQ) 21 mg/24 hr [...] at 0900 1759 (Given - Provider: Carol Barron RN) 0924 (Given - Provider: Amira Conrad, DORENE) senna-docusate (Pericolace) 8.6-50 mg per tablet 2 tablet 2 tablet, Oral, 2 TIMES DAILY, First dose on Sat10/18/21 at 0900, Until Discontinued, Routine 0812 (Given - Provider: aCrol Barron, RN)2039 (Given - Provider: Lupe Millan, DROENE) 924 (Given - Provider: Amira Conrad, DORENE)2006 (Given - Provider: Mera Mckeon, DORENE) 08 (Given - Provider: Zoe Ashraf, DORENE) sodium chloride 0.9 % (flush) (BD PosiFlush Normal Saline 0.9) flush 5 mL 5 mL, Intravenous, 2 TIMES DAILY, First dose on Sat10/17/21 at 2230, Until Discontinued, Routine 0900 (Given - Provider: Carol Barron RN)2099 (Given - Provider: Lupe Millan, DORENE) 09 (Given - Provider: Amira Conrad, DORENE)2007 [...] Barron RN)2143 (See Alternative - Provider: Lupe Millan RN) 1134 (See Alternative - Provider: Amira Conrad, DORENE) oxyCODONE (Roxicodone) tablet 5 mg (CANCELED) 5 [...] Carol Barron RN)2143 (Given - Provider: Lupe Millan RN) 1134 (Given - Provider: Amira Conrad, DORENE) polyethylene glycoL (Miralax) packet 17 g 17 [...] Routine documented in this encounter Care Teams Loaf Counter Relationship Specialty Start Date End Date Pk Trevizo MD [address] [place] [address] PCP - General Emergency Medicine 05/02/21 documented as of this encounter
--- OUTSIDE RECORDS SUMMARY | 2024-04-14 12:57 | XMS_ITS | Encounter Summary ---
Author Organization Formerly [facility], [facility] [place] [address] Care Team Providers Care Assembler Truck Trailer Name Role Phone Pk Trevizo MD Primary Care Provider [phone] Reason for Visit * Consultation (Routine) - Closed Specialty Diagnoses / Procedures Referred By Contac t Referred To Contact Pre-Admission Testing Diagnoses PMB (postmenopausal bleeding) Melba Regan [facility] [address] [facility] Pre Admit [place] [address] [place] [address] Referral ID Status Reason Start Date Expiration Date V isits Requested Visits Authorized [id number] Closed Consult, Test & Treat 09/08/2021 09/08/2022 1 1 Encounter Details Date Type Department Care Team (Late st Contact Info) Description 09/18/2021 10:30 AM EDT TH Visit (TeleHealth) [place] [address] Social History Tobacco Use Types Packs/Day Years [...] Scheduled Referrals Name Type Priority Associated Diagnoses Order Schedule Referral to General Anesthesiology Outpatient Referral Routine PMB (postmenopausal bleeding) Ordered: 09/08/2021 documented as of this encounter Visit Diagnoses Not on filedocumented in this encounter Care Teams Assembler Truck Trailer Relationship Specialty Start Date End Date Pk Trevizo MD [address] [place] [address] PCP - General Emergency Medicine 05/02/21 documented as of this encounter
--- OUTSIDE RECORDS SUMMARY | 2024-04-14 12:57 | XMS_ITS | Encounter Summary ---
Author Organization [facility] Address [facility] [place] [address] Care Team Providers Care Slat Twister Name Role Phone Pk Trevizo MD Primary Care Provider [phone] Reason for Visit * Auth/Cert Specialty Diagnoses / Procedures Referred By Kit t Referred To Contact Diagnoses ENDOMETRIAL CANCER Procedures [...] Expiration Date Visits Re quested Visits Authorized [id number] 1 1 Encounter Details Date Type Department Care Team (Late st Contact Info) Description 10/17/2021 11:26 AM EDT Anesthesia [place] [address] Jd Pinto MD [facility] [place] [address] Chetan Daniel MD [facility] [place] [address] Anesthesia Record Procedure Summary Procedure Name Responsible Anesthesiologist Anesthesia Start Time Anesthesia Stop Time ROBOTIC LAPAROSCOPY,TOTAL HYST, UTERUS<250GM, REM TUBE &/OR OVARY (WRVU 15) (Uterus) Jd Pinto MD 10/17/21 1126 10/17/21 1851 Events Date Time Event Comment 10/17/2021 1032 1126 AN Verify 1126 Start 1126 An Start Data 1131 An Induction 1133 An Intubation 1139 Anesthesia Ready [address] Vidales request ing vascular consult for bleeding/? Anuerysm on left side 1434 Break/Relief In I assumed ca re for Break Relief before which we: 1. Identified the patient 2. Identified the responsible provider(s) 3. Reviewed the pertinent medical history 4. Discussed the surgical plan and course 5. Reviewed intra-op anesthesia management and issues during anesthesia 6. Set expectations for the relief (and/or post-procedure) period 7. Allowed opportunity for questions and acknowledgement of understanding ARTEMIO MAXWELL CRNA 1449 Break/Relief Out 1515 Quick Note Bed leveled. Le ft radial bridger and 18 gauge IV placed to left AC. Blood ordered. 1537 Quick Note Incision (Dr. Nany hudson) 1540 an noemi now 1559 ABG Data Arterial Blood Gas result: pH 7.23 pCO2 38 pO2 201 %O2 Sat 15.7 FiO2 60 HCO3 15.7 BE -11.7 Hb 10.3 K 5.96 Glucose 330 Lactate 243 1605 Quick Note consu lted for left kidney involvement. 1708 ABG Data Arterial Blood Gas result: pH 7.24 pCO2 42.7 pO2 206 %O2 Sat 100 FiO2 60 HCO3 17.9 BE -11.9 Hb 9.2 K 5.08 Glucose 303 Lactate 3.8 1710 Handoff Intra-procedure anesthesia care was transferred after review of the patient's history, current anesthetic/surgical status and procedural plan, anticipated issues and expected post-operative course (including disposition.) Yue quiñones EVP MANAGING DIRECTOR 1803 Quick Note cysto 1822 Extubation/LMA Out 182 an stop data 185 Recovery or ICU Handoff Kareen ent care was transferred to the destination unit staff after review of the patient's medical history, current anesthetic/surgical status and plan, according to the Provider Handoff Checklist. 185 Stop Meds Name Total Midazolam 2 mg fentaNYL 200 mcg Propofol 160 mg Rocuronium 170 mg PHENYLephrine 320 mcg PHENYLephrine 80 mcg Ondansetron 8 mg Dexamethasone 8 mg ceFAZolin (Ancef) 2 g in dextrose 5% 100 mL infusion 4 g metroNIDAZOLE (Flagyl) 500 mg in sodium chloride 0.9% 100 mL infusion 500 mg Propofol INF 1,547.84 mg Labetalol 25 mg Dexmedetomidine 44 mcg hydrALAZINE 20 mg Insulin Regular Human 7 Units Insulin Regular INF 7.6 Units Sodium Bicarbonate 8.4% 50 mEq HYDROmorphone 2 mg/mL 1 mg Sugammadex 200 mg Lactated Ringers 2,000 mL Sodium Chloride 0.9% 400 mL Sodium Chloride 0.9% 500 mL Albumin (human) 5% 500 mL * Agents Name O2 Air N2O Sevoflurane (et) * Blood No blood administrations on file. Lines, Drains, and Airways Type Details Placement Removal (RETIRED) Peripheral IV Line - Single Lumen median cubital vein (antecubital fossa), left; [id number] catheter system; 18 gauge; [employer] program coordinator; removed per policy/procedure, site symptomatic, catheter/device intact; 10/19/21; 0015 10/17/21 1542 by 10/19/21 0015 by Lupe Millan RN Incision 09/15/21; 1505; Righ t, lateral, anterior; neck; LDA not present upon assessment; 11/19/23; 1222 09/15/21 1505 by Paulina Smith RN 11/19/23 1222 by Alba Brady, DORENE Incision 10/17/21; (in OR); L eft; abdomen; low transverse; LDA not present upon assessment; 11/19/23; 1224 10/17/21 0000 by Elizabeth Faith RN 11/19/23 1224 by Alba Brady, DORENE (RETIRED) Peripheral IV Line - Single Lumen 10/17/21; 1055; metacarpal vein (top of hand), right; Anatomical Landmarks; 20 gauge; Isamar; distraction, tolerated well, appears comfortable; 10/20/21; 1003 10/17/21 1055 by Bela Cortes RN 10/20/21 1003 by Zoe Ashraf RN ETT Mask Ventilation: Adjunct (2); ETT Type: Cuffed, Oral; ETT Size: 7 mm; Mac Blade: 3; Notes: Asleep, Pre-O2, Stylette; Attempts: 1; Laryngoscopy Grade: 1; ETT Placement Verified By: Auscultation, Capnometry, Visual; Secured at Teeth: 23 cm; Inserted by: Dr. Robert (pulmonary/critical care fellow); Removal Date: 10/17/21; Removal Time: 182110/17/21 1138 by Artemio Maxwell CRNA 10/17/211821 by Trino Quiñones CRNA (RETIRED) Peripheral IV Line - Single Lumen 10/17/21; 1147; basilic vein (medial side of arm), left; 20 gauge; [employer] program coordinator; 10/20/21; 1003 10/17/21 1147 by Artemio Maxwell CRNA 10/20/21 1003 by Zoe Ashraf RN Incision 10/17/21; 1255; midl ine; lower quadrant; laparoscopic punctures (specify); 5 trocar sites; LDA not present upon assessment; 11/19/23; 1224 10/17/21 1255 by Nikos Escoto RN 11/19/23 1224 by Alba Brady RN Urethral Catheter 10/17/21; 1256; Genitourinary surgery, Physician order; indwelling double lumen catheter; latex, silicone coated; 14; inserted at this facility; 1; 5; 10; drainage bag to dependent drainage; urethral catheter removed; 10/19/21; 0615 10/17/21 1256 by Nikos Escoto RN 10/19/21 0615 by Lita Corea LNA Intentionally Retained Foreign Objects 10/17/21; 1508; Abdomen; 1 lap sponge; 10/17/21; 1700 (in OR); in OR 10/17/21 1508 by Nikos Escoto RN 10/17/21 1700 by Elizabeth Faith RN Arterial Line 10/17/21; 1526; radi al artery, left; 20 gauge; Anatomical Landmarks; continuous blood pressure monitoring; [employer] program coordinator; Sterile Prep, Sterile Gloves; 10/17/21; 204710/17/21 1526 by Artemio Maxwell CRNA 10/17/212047 by Gilles, Vandana M, RN Drain/Device Site 10/17/21; 1703; Left ; anterior; hip; collapsible closed device (15 fr patrice drain); Removed By team; 10/20/21 10/17/21 1703 by Nikos Escoto RN 10/20/21 0000 by Zoe Ashraf RN documented in this encounter Social History Tobacco [...] of this encounter OR Notes * Anesthesia Postprocedure Evaluation - Jd Pinto MD - 10/18/2021 1:15 PM EDT Department of Anesthesiology Post-procedure Note Patient: Geeta Sadler Procedure Summary Date: 10/17/21 Room / Location: [facility] OR [facility] MAIN OR Anesthesia Start: 1126 Anesthesia Stop: 1850 Procedures: LAPAROSCOPY,TOTAL HYST, UTERUS<250GM, REM TUBE &/OR OVARY, ROBOTIC ASSIST (WRVU 15) (N/A Uterus) LAPAROSCOPY,W\BILATERAL TOTAL PELVIC LYMPHADENECTOMY, PERIAORTIC LYMPH NODE SAMPLING, ROBOTIC (WRVU15.6) (N/A Uterus) INTRAOPERATIVE ID (MAPPING) SENTINEL LYMPH NODE,INCLUDES INJECTION (WRVU 2.5) (N/A Pelvis) MODIFIER ROBOT,TOYAI XI (N/A ) @EXPLORATORY LAPAROTOMY, WITH/WITHOUT BIOPSY(S) (WRVU 12.54) (N/A Abdomen) CYSTO, RETROGRADE, URETEROPYELOGRAPHY (WRVU 2.37) (N/A Ureter) CYSTOTOMY WITH INSERTION OF URETERAL STENT\CATHETER (WRVU 7.81) (Left Pelvis) @NEPHRORRHAPHY, SUTURE KIDNEY WOUND OR INJURY (WRVU 21.22) (Flank) Diagnosis: (ENDOMETRIAL CANCER) Surgeons: Brian Vidales MD; Jared Kiser MD; Justice Cole MD Responsible Provider: Jd Pinto MD Anesthesia Type: general ASA Status: 3 All Anesthesia Providers: Anesthesiologist: Chetan Daniel MD; Jd Pinto MD EVP MANAGING DIRECTOR: Artemio Maxwell CRNA; Trino Quiñones CRNA Vitals Value Taken Time BP 134/58 10/17/210 Temp 36.7 ??C (98.1 ??F) 10/17/211999 Pulse 101 10/17/21 2200 Resp 15 10/17/212044 SpO2 95 % 10/17/212100 Pain Level 3 10/17/211999 Vitals shown include unvalidated device data. Patient Location: PACU/[facility] Level of Consciousness: Awake and Alert Pain Management: Satisfactory Analgesia PONV: None Cardiovascular Status: At Baseline and Hemodynamically Stable Respiratory Status: At Baseline and Room Air Postoperative Fluid Status: Intravascular EUvolemia Possible Anesthetic Complications: NONE apparent at time of evaluation Final Primary Anesthesia Type: General (The anesthetic type performed was the same as planned.) Comments: Jd Pinto MD * Anesthesia Preprocedure Evaluation - Chetan Daniel MD - 10/16/2021 1:50 PM EDT Pre-Anesthesia Evaluation for: Geeta Sadler a 56 y.o. female. Procedure(s): LAPAROSCOPY,TOTAL HYST, UTERUS<250GM, REM TUBE &/OR OVARY, ROBOTIC ASSIST (WRVU 15) LAPAROSCOPY,W\BILATERAL TOTAL PELVIC LYMPHADENECTOMY, PERIAORTIC LYMPH NODE SAMPLING, ROBOTIC (WRVU15.6) INTRAOPERATIVE ID (MAPPING) SENTINEL LYMPH NODE,INCLUDES INJECTION (WRVU 2.5) MODIFIER ROBOT,ENE XI Patient Active Problem List Diagnosis Date Noted ??? Cigarette smoker 09/28/2021 ??? Adenocarcinoma of endometrium 09/20/2021 ??? Stenosis of right carotid artery greater [...] 21.16) performed by Mickey Magallon MD at [facility] MAIN OR Social History Tobacco Use ??? [...] Physical Exam: Preprocedure Vitals Current as of 10/16/21 1350 No BP, pulse, respiration, SpO2, or temperature recorded. Height: Weight: BMI: IBW: Airway Assessment: Mallampati: I TM distance: >3 FB Neck ROM: full Cardiovascular Assessment: Rhythm: regular Rate: normal system normal Pulmonary Assessment: breath sounds clear to auscultation (-) wheezes pulmonary exam normal Dental Assessment: - normal exam Misc Assessment: IV access: Peripheral line Other exam findings: Patient complains of residual weakness of left hand from stroke last year, butunable to appreciate weakness on physical examination. Last Filed Perioperative Cognitive Screening None Anesthesia Plan: ASA 3 general, with a(n) intravenous induction 56 yo F with endometrial ca for hysterectomy. 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 Use of blood products discussed with patient who consented to blood products. Plan discussed with EVP MANAGING DIRECTOR. Anesthesia Screening documented in this encounter Plan of Treatment Not on file documented as of this encounter Visit Diagnoses Not on filedocumented in this encounter Administered Medications Inactive Administered Medications - up to 3 most recent administrations Medication Order MAR Action Action Date Dose Rate Site albumin (human) 5% 250 mL intravenous solution Intravenous, CONTINUOUS PRN, Starting on Sat10/17/21 at 1610, Until Sat10/17/21 at 1900, Anesthesia Intra-op, Routine Restarted 10/17/2021 4:37 PM EDT New Bag 10/17/2021 4:10 PM EDT ceFAZolin (Ancef) 2 g in dextrose 5% 100 mL infusion 2 g, Intravenous, ONCE, 1 dose, On Sat10/17/21 at 1100, Administer over 30 Minutes, Sugar Chipper Machine Operator to OR Infuse over 30 minutes., Day of Surgery (Day of Procedure), Indication for (Active or Suspected): Prophylaxis Given 10/17/2021 3:37 PM EDT 2 g Given 10/17/2021 11:50 AM EDT 2 g dexamethasone (Decadron) injection Intravenous, PRN, Starting on Sat10/17/21 at 1156, Until Sat10/17/21 at 1900, Anesthesia Intra-op, Routine Given 10/17/2021 12:19 PM EDT 8 mg dexmedetomidine (Precedex) (4 mcg/mL) bolus injection (Anesthsia) Intravenous, PRN, Starting on Sat10/17/21 at 1222, Until Sat10/17/21 at 1900, Anesthesia Intra-op, Routine Given 10/17/2021 6:07 PM EDT 12 mcg Given 10/17/2021 5:35 PM EDT 12 mcg Given 10/17/2021 12:38 PM EDT 8 mcg fentaNYL (pf) (50 mcg/mL) multi-dose injection Intravenous, PRN, Starting on Sat10/17/21 at 1207, Until Sat10/17/21 at 1900, Anesthesia Intra-op, Routine Given 10/17/2021 2:12 PM EDT 50 mcg Given 10/17/2021 12:07 PM EDT 50 mcg Given 10/17/2021 11:31 AM EDT 50 mcg hydrALAZINE (Apresoline) (20 mg/mL) injection Intravenous, PRN, Starting on Sat10/17/21 at 1254, Until Sat10/17/21 at 1900, Anesthesia Intra-op, Routine Given 10/17/2021 2:11 PM EDT 10 mg Given 10/17/2021 12:54 PM EDT 10 mg HYDROmorphone (Dilaudid) (2 mg/mL) multi-dose injection solution Intravenous, PRN, Starting on Sat10/17/21 at 1738, Until Sat10/17/21 at 1900, Anesthesia Intra-op, Routine Given 10/17/2021 5:43 PM EDT 0.4 mg Given 10/17/2021 5:38 PM EDT 0.6 mg insulin regular (HumuLIN R,NovoLIN R) (100 unit/mL) injection vial Intravenous, PRN, Starting on Sat10/17/21 at 1619, Until Sat10/17/21 at 1900, Anesthesia Intra-op, Routine Given 10/17/2021 5:04 PM EDT 5 Units Given 10/17/2021 4:19 PM EDT 2 Units insulin regular (Myxredlin) (1 unit/mL) in sodium chloride 0.9% 100 mL infusion Intravenous, CONTINUOUS PRN, Starting on Sat10/17/21 at 1619, Until Sat10/17/21 at 1900, Anesthesia Intra-op, Routine New Bag 10/17/2021 4:19 PM EDT 3 Units/hr 3 mL/hr labetaloL (Normodyne) (5 mg/mL) multi-dose injection Intravenous, PRN, Starting on Sat10/17/21 at 1220, Until Sat10/17/21 at 1900, Anesthesia Intra-op, Routine Given 10/17/2021 12:45 PM EDT 5 mg Given 10/17/2021 12:27 PM EDT 10 mg Given 10/17/2021 12:20 PM EDT 10 mg lactated ringers infusion Intravenous, CONTINUOUS PRN, Starting on Sat10/17/21 at 1126, Until Sat10/17/21 at 1900, Anesthesia Intra-op New Bag 10/17/2021 11:26 AM EDT metroNIDAZOLE (Flagyl) 500 mg in sodium chloride 0.9% 100 mL infusion 500 mg, Intravenous, ONCE, 1 dose, On Sat10/17/21 at 1100, Administer over 30 Minutes, Sugar Chipper Machine Operator to OR Infuse over 30 minutes., Day of Surgery (Day of Procedure), Indication for (Active or Suspected): Prophylaxis Given 10/17/2021 11:50 AM EDT 500 mg midazolam (pf) (Versed) (1 mg/mL) multi-dose injection Intravenous, PRN, Starting on Sat10/17/21 at 1126, Until Sat10/17/21 at 1900, Anesthesia Intra-op, Routine Given 10/17/2021 11:26 AM EDT 2 mg ondansetron (pf) (Zofran) (2 mg/mL) injection Intravenous, PRN, Starting on Sat10/17/21 at 1735, Until Sat10/17/21 at 1900, Anesthesia Intra-op, Routine Given 10/17/2021 5:35 PM EDT 8 mg PHENYLephrine in NS (PF) (MICHAEL-SYNEPHRINE) 0.8 mg/10 mL (80 mcg/mL) multi-dose injection Syrg Intravenous, PRN, Starting on Sat10/17/21 at 1613, Until Sat10/17/21 at 1900, Anesthesia Intra-op, Routine Given 10/17/2021 4:13 PM EDT 80 mcg PHENYLephrine in NS (PF) (MICHAEL-SYNEPHRINE) 0.8 mg/10 mL (80 mcg/mL) multi-dose injection Syrg Intravenous, PRN, Starting on Sat10/17/21 at 1656, Until Sat10/17/21 at 1900, Anesthesia Intra-op, Routine Given 10/17/2021 5:10 PM EDT 80 mcg Given 10/17/2021 4:56 PM EDT 160 mcg Given 10/17/2021 4:12 PM EDT 80 mcg propofoL (Diprivan) (10 mg/mL) infusion Intravenous, CONTINUOUS PRN, Starting on Sat10/17/21 at 1142, Until Sat10/17/21 at 1900, Anesthesia Intra-op, Routine New Bag 10/17/2021 11:42 AM EDT 75 mcg/kg/min 44.865 mL/hr propofoL (Diprivan) 10 mg/mL bolus injection (Anesthesia) Intravenous, PRN, Starting on Sat10/17/21 at 1131, Until Sat10/17/21 at 1900, Anesthesia Intra-op Given 10/17/2021 11:31 AM EDT 160 mg rocuronium (Zemuron) (10 mg/mL) multi-dose injection Intravenous, PRN, Starting on Sat10/17/21 at 1131, Until Sat10/17/21 at 1900, Anesthesia Intra-op, Routine Given 10/17/2021 4:51 PM EDT 20 mg Given 10/17/2021 3:35 PM EDT 30 mg Given 10/17/2021 1:44 PM EDT 20 mg sodium bicarbonate 8.4 % (1 meq/ml) IV solution Subcutaneous, PRN, Starting on Sat10/17/21 at 1615, Until Sat10/17/21 at 1900, Anesthesia Intra-op, Routine Given 10/17/2021 4:15 PM EDT 50 mEq sodium chloride 0.9% infusion Intravenous, CONTINUOUS PRN, Starting on Sat10/17/21 at 1530, Until Sat10/17/21 at 1900, Anesthesia Intra-op New Bag 10/17/2021 3:30 PM EDT sodium chloride 0.9% infusion Intravenous, CONTINUOUS PRN, Starting on Sat10/17/21 at 1615, Until Sat10/17/21 at 1900, Anesthesia Intra-op New Bag 10/17/2021 4:15 PM EDT sugammadex (Bridion) 100 mg/mL injection Intravenous, PRN, Starting on Sat10/17/21 at 1814, Until Sat10/17/21 at 1900, Anesthesia Intra-op, Routine Given 10/17/2021 6:14 PM EDT 200 mg documented in this encounter Care Teams Slat Twister Relationship Specialty Start Date End Date Pk Trevizo MD [address] [place] [address] PCP - General Emergency Medicine 05/02/21 documented as of this encounter
--- OUTSIDE RECORDS SUMMARY | 2024-04-14 12:58 | XMS_ITS | Encounter Summary ---
Author Organization [facility] [place] [address] Care Team Providers Care Tailer Out Name Role Phone Pk Trevizo MD Primary Care Provider [phone] Encounter Details Date Type Department Care Team (Late st Contact Info) Description 08/18/2021 [place] [id number] Candie Hector Social History Tobacco Use Types Packs/Day Years Used Date Smoking Tobacco: Every Day Cigarettes Smokeless Tobacco: Never Comments:varies to about 1-1 .5 packs per day Sex and Gender Information Value Date Recorded Sex Assigned at Not on file Gender Identity Not on file Sexual Orientation Lesbian or Stark 11/06/2022 5: 13 PM EDT documented as of this encounter Miscellaneous Notes * Telephone Encounter - Candie Hector - 09/11/2021 12:01 PM EDT Telephone call placed/received to schedule covid 19 testing with patient. Ordering provider: Dr. Mickey Magallon Testing Facility: [facility] Date of Testin09/12/2021 Time of Testing: TBD Symptoms: no Employee or Household Member of Employee No Healthcare Worker No * Telephone Encounter - Candie Hector - 08/23/2021 9:53 AM EST Telephone call placed/received to schedule covid 19 testing with patient. Ordering provider: Dr. Mickey Magallon Testing Facility: [facility] Date of Testin08/28/2021 Time of Testing: TBD Symptoms: No Employee or Household Member of Employee No Healthcare Worker No * Telephone Encounter - Candie Hector - 08/18/2021 8:32 AM EST Mailbox is full, unable to leave a message. Pt needs a pre-op Covid test on 08/29 for a procedure on 09/01. documented in this encounter Plan of Treatment Not on file documented as of this encounter Visit Diagnoses Not on filedocumented in this encounter Care Teams Tailer Out Relationship Specialty Start Date End Date Pk Trevizo MD [address] [place] [id number] PCP - General Emergency Medicine 05/02/21 documented as of this encounter
--- OUTSIDE RECORDS SUMMARY | 2024-04-14 12:58 | XMS_ITS | Encounter Summary ---
[facility] [place] [address] Care Team Providers Care Gun Club Manager Name Role Phone Pk Trevizo MD Primary Care Provider Encounter Details Date Type Department Care Team (Late st Contact Info) Description 05/22/2021 Telephone Obstetrics [place] [phone] Karla Krishnamurthy Social History Tobacco Use Types Packs/Day Years [...] on filedocumented in this encounter Care Teams Gun Club Manager Relationship Specialty Start Date End Date Pk Trevizo MD [address] [place] [address] PCP - General Emergency Medicine 05/02/21 documented as of this encounter
--- OUTSIDE RECORDS SUMMARY | 2024-04-14 12:58 | XMS_ITS | Encounter Summary ---
Author Organization [facility] [place] [address] Care Team Providers Care Broadcast Director Operations Name Role Phone Pk Trevizo MD Primary Care Provider Encounter Details Date Type Department Care Team (Late st Contact Info) Description 05/04/2021 Telephone Obstetrics [place] [address] Tali Vargas MD [facility] DR OBSTETRICS [place] [address] Social History Tobacco Use Types Packs/Day Years [...] encounter Miscellaneous Notes * Telephone Encounter - Tali Vargas - 05/04/2021 2:48 PM EDT Geeta called yesterday to update me that she is planning to have a procedure with Dr. Magallon in Vascular soon (she does not have a date yet), and she is hoping that office will fill out disability paperwork for her. She is planning to see me on 06/21 to discuss plans for hysteroscopy/D&C. Tali Vargas MD, PGY4 Obstetrics and Gynecology 05/04/2021 * Telephone Encounter - Tali Vargas - 05/04/2021 2:48 PM EDT ----- Message from Geeta Watt RN sent at 05/03/2021 2:43 PM EDT ----- ----- Message ----- From: Marquita Gonzalez Sent: 05/03/2021 1:18 PM EDT To: [facility] Nurse Patient wanted to update Dr. Vargas regarding going ahead with the surgery and has asked to chat with a nurse or tali Please call [phone] Thank you, Beverly documented in this encounter Plan of Treatment Not on file documented as of this encounter Visit Diagnoses Not on filedocumented in this encounter Care Teams Broadcast Director Operations Relationship Specialty Start Date End Date Pk Trevizo MD [address] [place] [id number] PCP - General Emergency Medicine 05/02/21 documented as of this encounter
--- OUTSIDE RECORDS SUMMARY | 2024-04-14 12:58 | XMS_ITS | Encounter Summary ---
Author Organization [facility] [place] [address] Care Team Providers Care Spider Assembler Name Role Phone Unknown Primary Care Provider Unavailabl e Encounter Details Date Type Department Care Team (Late st Contact Info) Description 03/01/2021 Ancillary Procedure Radiology Library at [facility] [place] [phone] Jayla Church DO [address] [place], [place] [id number] Social History Tobacco Use Types Packs/Day Years [...] Procedure Name Priority Date/Time Associated Diagnosis Comments FILM LIBRARY STORAGE ONLY ULTRASOUND STUDY Routine 03/01/2021 12:00 AM EDT documented in this encounter Results * Film Library- Storage Only Ultrasound Study (03/01/2021 12:00 AM EDT) Narrative MARILYNN - 03/27/2021 11:01 AM EDT This exam is auto-finalizing. It's purpose is for storage only. Jayla Church DO IMG FILM LIBRARY ORD ERABLES [place]E Song documented in this encounter Visit Diagnoses Not on filedocumented in this encounter Care Teams Spider Assembler Relationship Specialty Start Date End Date Unknown None PCP - General 12/29/18 05/01/21 documented as of this encounter
--- OUTSIDE RECORDS SUMMARY | 2024-04-14 12:58 | XMS_ITS | Encounter Summary ---
Author Organization [facility] Address [facility] [place] [address] Care Team Providers Care Software Validation Technician Name Role Phone Unknown Primary Care Provider Unavailabl e Reason for Visit * Consultation (Urgent) - Closed Specialty Diagnoses / Procedures Referred By Kit saravia Referred To Contact Obstetrics and Gynecology Diagnoses Abnormal findings on diagnostic imaging of other specified body structures Postmenopausal bleeding Anemia, unspecified Cerebral infarction due to unspecified occlusion or stenosis of right anterior cerebral artery Jayla Church DO [address] [place] [address] [facility] [address] [address] [place] [address] Referral ID Status Reason Start Date Expiration Date V isits Requested Visits Authorized [id number] Closed Consult, Test & Treat Connection Center PCP Updated and/or Approved 03/23/2021 03/23/2022 6 6 Encounter Details Date Type Department Care Team (Late st Contact Info) Description 04/03/2021 10:40 AM EDT Office Visit Obstetrics [place] [phone] Dianna Vargas MD [facility] DR OBSTETRICS & [place] [address] Abnormal vaginal bleeding with endometrial thickness greater than 5 mm present on transvaginal ultrasound in postmenopausal patient; Postmenopausal bleeding Social History Tobacco Use Types Packs/Day Years Used Date Smoking Tobacco: Every Day Smokeless Tobacco: Never Sex and Gender Information Value Date Recorded Sex Assigned at Not on file Gender Identity Not on file Sexual Orientation Lesbian or Stark 11/06/2022 5: 13 PM EDT documented as of this encounter Last Filed Vital Signs Vital Sign Reading Time Taken Comments Blood Pressure 144/61 04/03/2021 10:47 AM EDT Pulse 79 04/03/2021 10:47 AM EDT Temperature 36.4 ??C (97.5 ??F) 04/03/2021 1 0:47 AM EDT Respiratory Rate 18 04/03/2021 10:4 7 AM EDT Oxygen Saturation 99% 04/03/2021 10: 47 AM EDT Inhaled Oxygen Concentration - - Weight 109.5 kg (241 lb 6.4 oz) 021 10:47 AM EDT Height 165.1 cm (5' 5) 04/03/2021 10:4 7 AM EDT Body Mass Index 40.17 04/03/2021 10:47 AM EDT documented in this encounter Progress Notes * Dianna Vargas N - 04/03/2021 10:40 AM EDT Images from the original note were not included. NEW PATIENT VISIT Reason for Visit: Geeta is a 56 y.o. postmenopausal female who presents to establish care She also presents withthe following complaints/concerns: ?? Postmenopausal bleeding - she first noticed this about a year ago, but she does not usually seekmedical care, so did not seek attention for this. At the end of January, she was seen in the ED for heavier bleeding and found to have an EMS of 3cm. Outpatient follow up was recommended. She was in the process of arranging D&C for evaluation when she again presented to the ED at the end of March and was found to have a hemoglobin of 4.8, for which she was transfused 4u. Outpatient EMB wasnegative and hysteroscopy/D&C recommended. 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 ?? Her bleeding has been well controlled since her ED evaluation - she has been taking norethindrone 10mg once a day and Provera 5mg BID ?? At this point the small amount of spotting she is having does not bother her, but her frequent cramping does cause discomfort daily. Cannot take ibuprofen, but can use Tylenol ?? She reports a long history of secondary amenorrhea - she started control in her 20s and was on this for a few years, and then had her tubes tied after having her children. When she discontinued the OCPs at that time, her period never returned until she began having the bleeding last year. ?? Per the records from Dr. Jayla Church in [facility], recent pap was normal and EMB benign. OFFICE PROFESSIONAL History: ??? No LMP recorded. Patient is postmenopausal. ??? 11 years old at menarche. ??? Long hx of secondary amenorrhea since her 20s when she had her tubes tied and discontinued OCPs ??? Last Pap: earlier this year ??? History of abnormal pap smears requiring intervention: no, but has not had medical care in the past 30y Sexual History: ??? Not currently sexually active. No current partner. ??? No history of STDs. ??? 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 Abnormal vaginal bleeding with endometrial thickness greater than 5 mm present on transvaginal ultrasound in postmenopausal patient ??? Hypertension ??? Obesity ??? Tobacco use disorder Social History She lives in [facility] alone. 2 cats. 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 Tobacco use? Currently 0.5ppd, has been as high as 1.5ppd over her 30y of smoking. Not interested in quitting Alcohol use? occasional Other drug use? no No family history on file. No family history of breast, ovarian, endometrial, or colon cancers has a current medication list which includes the following prescription(s): ascorbic acid (vitamin c), atorvastatin, medroxyprogesterone, norethindrone, acetaminophen, and nicotrol. No Known Allergies Physical Exam Vitals: 04/03/21 1047 BP: 144/61 Pulse: 79 Resp: 18 Temp: 36.4 ??C (97.5 ??F) TempSrc: Temporal SpO2: 99% Weight: 109.5 kg (241 lb 6.4 oz) Height: 165.1 cm (5' 5) Body mass index is 40.17 kg/m??. General: Well developed female. Extremities: 1+ pedal edema Neuro: grossly intact Imaging TVUS (03/01/21) Assessment: Geeta is a 56 y.o. postmenopausal female who presents for discussion of hystersocopy/D&C in the setting of 1y of PMB with resultant acute blood loss anemia requiring transfusion and findings of a 3cm EMS, suspicious for endometrial adenocarcinoma vs polyp or fibroid. Her medical picture is complicated by a CVA 2 weeks ago (withough residual deficits), with upcoming evaluationwith Vascular due to findings of carotid artery stenosis. Plan: Postmenopausal bleeding ?? Today we discussed possible causes of PMB in the setting of a thickened EMS, including endometrial cancer, endometrial polyps, or fibroids. Despite a negative EMB, I am suspicious that she may have endometrial cancer given her multitude of risk factors, including obesity with BMI 40 and apparentlack of menstrual cycles for the past 30 years. However, we reviewed that as Dr. Church recommended, a hysteroscopy/D&C to better characterize the intra-cavitary findings and sample the endometrium more completely is prudent and will allow us to determine a diagnosis. We discussed that I wouldnot recommend this procedure for at least 3 months after her CVA, and would first want clearance from Vascular as well as Anesthesia prior to proceeding with surgery. She has an appt with Vascular quan month to discuss potential management for her carotid artery stenosis. I recommended we plan for follow up in July or August to see how her other medical conditions are doing and if she is a surgical candidate at that time ?? In the meantime, would recommend she continue taking progestins, not only for bleeding control but to protect her endometrial lining - in the setting that this is endometrial cancer, the progestins may slow it's progression, and if it is not, she is still at high risk for developing endometrial cancer in the future so the protective effect of progesterone is beneficial to her ?? She is currently taking both Provera and Aygestin. Recommended she discuss this further with when she sees her on Saturday. Per Dr. Church's notes it looks as though she was meant tostop the Aygestin and transition to Provera alone, but she has not done that. Will defer to Dr. Church on best progestin regimen Routine Gynecologic Care ??? Pap Smear: NILM, HPV negative in March at OSH Follow up with me has been set up for June 21, at which point she will have met with Vascular and we can discuss timing for hysteroscopy/D&C The patient was discussed with Dr. Ruelas, attending WELFARE SERVICE AIDE, with whom the plan was formulated. Dianna Vargas MD, PGY4 Obstetrics and Gynecology 04/04/2021 * Jody Ruelas MD - 04/03/2021 10:40 AM EDT The case was discussed in person at the time of the visit or immediately after the visit. The assessment and plan were formulated in discussion with me and I agree with them as documented. I have reviewed the history, physical exam, assessment and plan with the resident. Jody Ruelas MD documented in this encounter Plan of Treatment Not on file documented as of this encounter Visit Diagnoses Diagnosis Abnormal vaginal bleeding with endometrial thickness greater than 5 mm present on transvaginal ultrasound in postmenopausal patient Postmenopausal bleeding documented in this encounter Care Teams Software Validation Technician Relationship Specialty Start Date End Date Unknown None PCP - General 12/29/18 05/01/21 documented as of this encounter
--- OUTSIDE RECORDS SUMMARY | 2024-04-14 12:58 | XMS_ITS | Encounter Summary ---
Author Organization [facility] [place] [address] Care Team Providers Care Staking Press Operator Name Role Phone Pk Trevizo MD Primary Care Provider Reason for Referral * Consultation (Routine) - Closed Specialty Diagnoses / Procedures Referred By Contac t Referred To Contact Pre-Admission Testing Diagnoses PMB (postmenopausal bleeding) Melba Regan CNM [facility] OBSTETRICS [place] [address] [facility] Pre Admit Test [address] [place] [address] Referral ID Status Reason Start Date Expiration Date V isits Requested Visits Authorized [id number] Closed Consult, Test & Treat 09/08/2021 09/08/2022 1 1 Encounter Details Date Type Department Care Team (Late st Contact Info) Description 09/08/2021 3:00 PM EST Office Visit Obstetrics [place] [address] Melba Regan CNM [facility] OBSTETRICS [place] [address] PMB (postmenopausal bleeding); Abnormal vaginal bleeding with endometrial thickness greater [...] Reading Time Taken Comments Blood Pressure 139/81 09/08/2021 3:14 PM EST Pulse 81 09/08/2021 3:14 PM EST Temperature 36.7 ??C (98.1 ??F) 09/08/2021 3:14 PM ES T Respiratory Rate - - Oxygen Saturation 98% 09/08/2021 3:14 PM EST Inhaled Oxygen Concentration - - Weight - - Height - - Body Mass Index - - documented in this encounter Progress Notes * Geeta Chang LPN - 09/08/2021 3:00 PM EST Feels as though she empties bladder but urinates every 2 hr, sometimes leaks but thinks also vaginal discharge * Melba Regan CNM - 09/08/2021 3:00 PM EST CC: Abdominal pain and discomfort Subjective: Geeta Sadler is a 56 y.o. female who is here today with pelvic pain and back pain. She presentswith her daughter Yvrose. Geeta reports she has pain after urination. Pain just aches no burning. Just sitting here she feels pressure all around her abdomen. This has become more bothersome recently in the past couple weeks. No LMP recorded. Patient is postmenopausal. Reports liquid stools all the time. Sometimes has blood when she wipes. Geeta lives a lone with her two cats. Takes Aygestin 5mg two tablets twice a day. She reports spotting here and there from the vagina butnothing too heavy. Reports the Aygestin keeps it in control. She was hospitalized in January for vaginal bleeding and received blood transfusions bc her hemoglobin was 4.8. Smokes about 1.5packs/day To note she is having a surgery with vascular--R CEA on 09/15/21. This has been postponed already. Patient Active Problem List Diagnosis Date Noted ??? Hypertension ??? Obesity ??? Abnormal vaginal bleeding with endometrial thickness greater than 5 mm present on transvaginal ultrasound in postmenopausal patient Past Medical History: Diagnosis Date ??? Abnormal vaginal bleeding with endometrial thickness greater than 5 mm present on transvaginal ultrasound in postmenopausal patient ??? Hypertension ??? Obesity ??? Tobacco use disorder No past surgical history on file. Outpatient Medications Marked as Taking for the 09/08/21 encounter (Office Visit) with Melba Regan CNM Medication Sig Dispense Refill ??? aspirin 81 mg Tablet, Chewable Take 81 mg by mouth daily. ??? norethindrone (Aygestin) 5 mg Tablet TAKE 2 TABLETS BY MOUTH TWICE A DAY ??? acetaminophen 325 mg Capsule Take by mouth. No Known Allergies ROS: See HPI, all others negative. Objective: BP 139/81 Pulse 81 Temp 36.7 ??C (98.1 ??F) SpO2 98% Declined weigt General: Appears healthy and well nourished. No apparent distress. Pelvic Exam: Urethra: No lesions. Normal opening. Vulva: No lesions. Normal hair distribution. Vagina: Worden, moist, rugated. Normal discharge noted. No lesions. No cystocle, rectocele or prolapse. Cervix: No CMT. Posterior, pink and smooth. No abnormal discharge. Uterus: Enlarged 10cm, firm, non-tender, mobile. Position AV. Adnexa: No masses or tenderness bilaterally. Ovaries non-palpable. Procedure: Endometrial Biopsy Indication: Abnormal Uterine Bleeding Following a brief verbal description of the procedure, verbal consent was obtained from the patient. A bimanual exam was performed which revealed an enlarged anteverted uterus. Adnexal were non palpable. A speculum was placed without difficulty. The cervix and vagina were prepped with sterile betadine x3. A pipette was placed through the cervix without difficulty. The uterus sounded to 7 cm. A biopsy was obtained in a 360 degree fashion. The tissue was placed into formalin for pathologic specimen and labeled with her name and date of and sent to pathology for assessment. She had quite abit of bleeding post EMB. Reviewed bleeding/hemorrhage precautions. The patient tolerated the proced ure well. The estimated blood loss was minimal. Assessment/Plan: Geeta is a 56 yo here for lower abdominal pain and back pain. She is concerned about her hxof vaginal bleeding and desires to have procedure soon which was supposed to be done in May 2021. She has been recommended a hysteroscopy. She is currently taking progesterone daily. Occasional spotting but not too much bleeding recently. She was worked up for AUB in [facility] and met withDr. Vargas and Dr. Ruelas here at [facility] 04/03/21 (please see their note). - AUB- on review of her ultrasound (3cm endometrial stripe) and her EMB it appears her EMB had scant amount of tissue so I offered another EMB which she accepted today. Will be in touch. I reviewed case with Dr. Sutton who agrees with plan. Plan to f/u with MD for scheduling hysteroscopy/D&C. Due to other co- morbidities recommend anesthesia consult as well. - Will send urine cx today as well. I have spent a total time of 45 minutes on this patient encounter on the day of visit, including pre-charting time, patient time, and post-service wrap-up. Melba Regan CNM documented in this encounter Plan of Treatment Scheduled Referrals Name Type Priority Associated Diagnoses Order Schedule Referral to General Anesthesiology Outpatient Referral Routine PMB (postmenopausal bleeding) Ordered: 09/08/2021 documented as of this encounter Procedures Procedure Name Priority Date/Time Associated Diagnosis Comments HC URINE CULTURE Routine 09/08/2021 5:10 PM EST PMB (postmenopausal bleeding) SPECIMEN TO PATHOLOGY Routine 09/08/2021 4:05 PM EST PMB (postmenopausal bleeding) SURGICAL PATHOLOGY REPORT Routine 09/08/2021 3:00 PM EST POCT URINE DIPSTICK Routine 09/08/2021 PMB (postmenopausal bleeding) documented in this encounter Results * (ABNORMAL) Urine culture Clean Catch Urine (09/08/2021 5:10 PM EST) Urine Culture 50,000-99,000 cfu/ml mixed mucosal jerman including 10,000-49,000 cfu/ml Beta Hemolytic Streptococci, Group B Note: Culture shows multiple bacterial species suggesting mucosal contamination. If symptoms continue to indicate urinary tract infection, submit a new specimen. (A) [facility] Organism Beta Hemolytic Streptococci, Group B(A) [facility] Clean Catch Urine 09/08/2021 5:10 PM EST 09/08/2021 5:10 PM EST Narrative Resulting Agency Comment Spec In Lab Melba Regan CNM MICROBIOLOGY - G ENERAL ORDERABLES Performing Organization Address [facility] de Phone Number [facility] [place] [address] * Specimen to Pathology (09/08/2021 4:05 PM EST) AP Specimen 09/08/2021 4:05 PM EST 09/08/2021 4:05 PM EST Narrative [facility] - 09/08/2021 4:05 PM EST Specimen requisition ordered. ??Separate Pathology report to follow Melba Regan CNM PATHOLOGY/CYTOLO GY ORDERABLES Performing Organization Address [facility] Phone Number [facility] [place] [address] * Surgical Pathology Report (09/08/2021 3:00 PM EST) Final Diagnosis [id number] ? Location: 5L The signing pathologist has (i) examined the relevant preparation(s) for the specimen(s) and (ii) rendered or confirmed the diagnosis(es). . ?Surgical Pathology DIAGNOSIS Endometrium, biopsy: - Adenocarcinoma, favor endometrioid type (see Discussion). - Background endometrium with stromal progestin effect. Electronically signed by: ?Vanessa Louise DO Verified: ??09/19/2021 9:35 ?? Pathologist Performed at: ??-[facility] Dept. of Pathology, [address], [place], [place] DISCUSSION The specimen is predominantly blood clot with a few fragments of benign endometrium with progestin effect. Two tissue fragments contain an adenocarcinoma showing a completely solid growth pattern comprised of tumor cells with moderate cytologic atypia and abundant eosinophilic to clear cytoplasm. Gland formation is not seen within areas of tumor. The tumor cells show a PAX8+, ER+, IN+, p53 wild-type, p16+ (nondiffuse) immunoprofile, most in keeping with an endometrioid carcinoma. Based on the solid growth, a FIGO grade 2-3 is favored; however, the fragments of tumor are small in this biopsy and may not be fully national account representative of the entire lesion. Definitive tumor classification and grading should be made upon evaluation of the entire lesion in a larger surgical specimen. Dr. Arrington reviewed this case for consensus and agrees with the interpretation. ADDITIONAL STUDIES Immunohistochemistry Studies: Formalin-fixed, paraffin-embedded tissue [...] diagnostic tests. Block ? Antibody ?Result (Positive/Negative) A2 ? PAX8 ? Positive A2 ? ER ? Positive A2 ? IN ? Positive A2 ? CKAE1/3 ?Positive A2 ? GATA3 ?Negative A2 ? p53 ?Positive/increased , but overall ?wild-type expression A2 ? p16 ?Positive (nondiffuse) A2 ? Synaptophysin ?Negative SPECIMEN(S) SUBMITTED A - Endometrium, biopsy (1) CLINICAL INFORMATION PMB SPECIMEN PROCESSING A - Labeled/Fixative: Patient demographics, formalin. . SPECIMEN PROCESSING Quantity/Size: ??Multiple, 3.0 x 2.5 x 0.5 cm. Tissue Description: Clotted blood and pink red soft tissues. Sections/Processing: Submitted en toto ??in 4 cassettes labeled A1-A4. ??ajw 09/19/2021 9:35 AM EDT [facility] ENDOMETRIAL STRUCTURE / Unknown 09/08/2021 3:00 PM EST 09/08/2021 3:00 PM EST Melba Regan CNM PATHOLOGY/CYTOLO GY ORDERABLES [facility] [place] [address] * POCT urine dipstick (09/08/2021) POC Sp [place] 1.015 1.002 - 1.030 POC pH, UA 5 5.0 - 8.5 POC Leuk, UA 1+ Negative - Negative POC Nitrite, UA negative Negative - Negative POC Protein, UA 1+ Negative - Negative mg/dL POC Glucose, UA 50 Normal - Normal mg/dL POC Ketone, UA 1+ Negative - Negative POC Urobil, UA normal 0.2 - 1.0 mg/dL POC Bili, UA negative Negative - Negative POC Blood, UA 250 Negative - Negative julio/uL Melba Regan CNM POINT OF CARE TE ST ORDERABLES documented in this encounter Visit Diagnoses Diagnosis PMB (postmenopausal bleeding) Postmenopausal bleeding Abnormal vaginal bleeding with endometrial thickness greater than 5 mm present on transvaginal ultrasound in postmenopausal patient documented in this encounter Care Teams Staking Press Operator Relationship Specialty Start Date End Date Pk Trevizo MD [address] [place] [address] PCP - General Emergency Medicine 05/02/21 documented as of this encounter
--- OUTSIDE RECORDS SUMMARY | 2024-04-14 12:58 | XMS_ITS | Encounter Summary ---
Author Organization [place] [address] Care Team Providers Care Sap Crm Developer Name Role Phone Unknown Primary Care Provider Unavailabl e Encounter Details Date Type Department Care Team (Late st Contact Info) Description 03/21/2021 Ancillary Procedure Radiology Library at [facility] [place], [facility] [place] [address] Brooke Mireles MD [address] [place], [place] [address] Social History Tobacco Use Types Packs/Day Years [...] Associated Diagnosis Comments FILM LIBRARY STORAGE ONLY CT HEAD Routine 03/21/2021 12:00 AM EDT documented in this encounter Results * Film Library- Storage Only CT Head (03/21/2021 12:00 AM EDT) Narrative MARILYNN - 03/22/2021 6:02 PM EDT This exam is auto-finalizing. It's purpose is for storage only. Brooke Mireles MD G FILM LIBRARY ORD ERABLES [place] documented in this encounter Visit Diagnoses Not on filedocumented in this encounter Care Teams Sap Crm Developer Relationship Specialty Start Date End Date Unknown None PCP - General 12/29/18 05/01/21 documented as of this encounter
--- OUTSIDE RECORDS SUMMARY | 2024-04-14 12:58 | XMS_ITS | Encounter Summary ---
Author Organization [facility] [place] [address] Care Team Providers Care Cut And Cover Line Worker Name Role Phone Pk Trevizo MD Primary Care Provider [phone] Encounter Details Date Type Department Care Team (Late st Contact Info) Description 08/01/2021 Telephone [place] [phone] Senia Mccoy RN Social History Tobacco Use Types Packs/Day [...] encounter Miscellaneous Notes * Telephone Encounter - Senia Mccoy RN - 08/01/2021 9:15 AM EST Travel Pta took a phone call from this patient as she is wondering if Dr. Magallon can sign her medical leave paperwork. Travel Pta let her know that she is on the books to have surgery but no date can be offered at this time. Travel Pta also let her know to reach back out to the provider who signed paperwork for her to be out. documented in this encounter Plan of Treatment Not on file documented as of this encounter Visit Diagnoses Not on filedocumented in this encounter Care Teams Cut And Cover Line Worker Relationship Specialty Start Date End Date Pk Trevizo MD [address] [place] [address] PCP - General Emergency Medicine 05/02/21 documented as of this encounter
--- OUTSIDE RECORDS SUMMARY | 2024-04-14 12:58 | XMS_ITS | Encounter Summary ---
Author Organization [facility] [place] [address] Care Team Providers Care Logistics Team Leader Name Role Phone Unknown Primary Care Provider Unavailabl e Encounter Details Date Type Department Care Team (Late st Contact Info) Description 03/27/2021 Telephone [place] [address] Vinh Dong Social History Tobacco Use Types Packs/Day Years [...] on filedocumented in this encounter Care Teams Logistics Team Leader Relationship Specialty Start Date End Date Unknown None PCP - General 12/29/18 05/01/21 documented as of this encounter
--- OUTSIDE RECORDS SUMMARY | 2024-04-14 12:58 | XMS_ITS | Encounter Summary ---
Author Organization [facility] [place] [address] Care Team Providers Care Manager Of It Name Role Phone Pk Trevizo MD Primary Care Provider [phone] Encounter Details Date Type Department Care Team (Late st Contact Info) Description 08/31/2021 Telephone [place] [phone] Cara Saldaña Social History Tobacco Use Types Packs/Day Years [...] encounter Miscellaneous Notes * Telephone Encounter - Cara Saldaña - 08/31/2021 11:48 AM EST I called and confirmed with Geeta new Surgery date for 09/15/21. Letter sent. I was able to reach Geeta and let her know procedure for 09/01/21 was postponed. Awaiting options for approval to add case on new date - I will confirm with patient once we're ableto get confirmed rescheduled date. documented in this encounter Plan of Treatment Not on file documented as of this encounter Visit Diagnoses Not on filedocumented in this encounter Care Teams Manager Of It Relationship Specialty Start Date End Date Pk Trevizo MD [address] [place] [address] PCP - General Emergency Medicine 05/02/21 documented as of this encounter
--- OUTSIDE RECORDS SUMMARY | 2024-04-14 12:58 | XMS_ITS | Encounter Summary ---
[facility] [place] [address] Care Team Providers Care Pump Servicer Supervisor Name Role Phone Pk Trevizo MD Primary Care Provider [phone] Encounter Details Date Type Department Care Team (Late st Contact Info) Description 08/23/2021 Orders [place] [address] Leann Francois, RN *Screening for COVID-19 virus Social History Tobacco Use Types Packs/Day Years [...] as of this encounter Visit Diagnoses Diagnosis Encounter for screening laboratory testing for COVID-19 virus documented in this encounter Care Teams Pump Servicer Supervisor Relationship Specialty Start Date End Date Pk Trevizo MD [address] [place] [address] PCP - General Emergency Medicine 05/02/21 documented as of this encounter
--- OUTSIDE RECORDS SUMMARY | 2024-04-14 12:58 | XMS_ITS | Encounter Summary ---
Author Organization [facility] [place] [address] Care Team Providers Care Housekeeping Department Worker Name Role Phone Pk Trevizo MD Primary Care Provider [phone] Encounter Details Date Type Department Care Team (Late st Contact Info) Description 09/07/2021 Telephone Obstetrics [place] [phone] Elizabeth hCurch, RN Social History Tobacco Use Types Packs/Day [...] encounter Miscellaneous Notes * Telephone Encounter - Elizabeth Church RN - 09/07/2021 1:14 PM EST Returned pt call, pain in stomach and abdomin. C/O of pain with urination. Has Urgency to void. Pain wraps around to her back. This has been going on for a few months.Denies fever. Advised her to increase fluids and take ibuprofen or tylenol for the pain. Pt expressed understanding.Transferred to scheduling for exam tomorrow. * Telephone Encounter - Elizabeth Church, RN - 09/07/2021 1:14 PM EST ----- Message from Maria D Ortez sent at 09/07/2021 12:26 PM EST ----- Regarding: Abdominal Pain Caller's name: Geeta Sadler Call back #: [phone] Patient's provider/team: Dr Vargas Reason for call: Abdominal Pain documented in this encounter Plan of Treatment Not on file documented as of this encounter Visit Diagnoses Not on filedocumented in this encounter Care Teams Housekeeping Department Worker Relationship Specialty Start Date End Date Pk Trevizo MD [address] [place] [address] PCP - General Emergency Medicine 05/02/21 documented as of this encounter
--- OUTSIDE RECORDS SUMMARY | 2024-04-14 12:58 | XMS_ITS | Encounter Summary ---
[place] [address] Care Team Providers Care Swing Grinder Name Role Phone Pk Trevizo MD Primary Care Provider [phone] Encounter Details Date Type Department Care Team (Late st Contact Info) Description 08/17/2021 Orders [place] [address] Senia Mccoy RN Stenosis of carotid artery, unspecified laterality; Pre-op testing Social History Tobacco Use Types Packs/Day Years [...] as of this encounter Results * (ABNORMAL) Prealbumin (09/15/2021 1:17 PM EDT) Prealbumin 48(H) 20 - 40 mg/dL [facility] Comment: Prealbumin levels are generally lower in the pediatric population; adult concentrations are usually attained near puberty. Blood 09/15/2021 1:17 PM EDT 09/15/2021 1:23 PM EDT Narrative Resulting Agency Comment Spec In Lab Sara Barron APRN CHEMISTRY ORDERABLES [facility] [place] [address] * (ABNORMAL) Basic Metabolic Panel (non-fasting) (09/15/2021 1:17 PM EDT) Glucose 134 65 - 199 mg/dL [facility] Comment:Diabetes: >=200 mg/d L plus symptoms Blood Urea Nitrogen 8 8 - 18 mg/dL [facility] Creatinine 0.72 0.70 - 1.20 mg/dL [facility] Sodium 133(L) 135 - 145 mmol/L [facility] Potassium 3.9 3.5 - 5.0 mmol/L [facility] Comment: Please note: ??Patients with WBC >100,000 may have falsely elevated Potassium levels. ??For accurate Potassium quantification in these patients send serum separator tube (gold top) for subsequent determinations. ??Contact the Clinical Chemistry Laboratory if there are any questions. Chloride 101 98 - 107 mmol/L [facility] Carbon Dioxide 17(L) 22 - 31 mmol/L [facility] Anion Gap 15 5 - 15 mmol/L [facility] Calcium 8.5 8.5 - 10.5 mg/dL [facility] Est Glomerular Filtration Rate 93 >=60 mL/min/1. 73 m?? [facility] Comment: This patient? s estimated [...] Barron APRN CHEMISTRY ORDERABLES Performing Organization Address City/[facility]/ZIP Co de Phone Number [facility] [address] * (ABNORMAL) Hemogram (09/15/2021 1:17 PM EDT) White Blood Cell 10.8(H) 4.0 - 9.5 x10(3)/mc L [facility] Red Blood Cell 4.13 4.00 - 5.21 x10(6)/mc L [facility] Hemoglobin 11.9 11.7 - 15.5 g/dL [facility] Hematocrit 36.5 35.7 - 45.8 % [facility] Mean Cell Volume 88.4 82.6 - 94.4 fL [facility] Mean Cell Hemoglobin 28.8 27.1 - 32.0 pg [facility] Mean Cell Hemoglobin Concentration 32.6 31.7 - 35.0 g/dL [facility] Platelet 373(H) 145 - 357 x10(3)/mc L [facility] RDW Standard Deviation 57.1(H) 37.0 - 46.0 fL [facility] RDW coefficient of variation 17.6(H) 11.5 - 14.1 % [facility] Mean Platelet Volume 11.5 7.6 - 12.9 fL [facility] NRBC% auto 0.0 % [facility] NRBC Absolute 0.000 0.000 - 0.000 x10(3)/ L [facility] Blood 09/15/2021 1:17 PM EDT 09/15/2021 1:23 PM EDT Narrative Resulting Agency Comment Spec In Lab Sara Barron APRN HEMATOLOGY ORDERABLE S [facility] [place] [address] documented in this encounter Visit Diagnoses Diagnosis Stenosis of carotid artery, unspecified laterality Pre-op testing Preoperative examination, unspecified documented in this encounter Care Teams Swing Grinder Relationship Specialty Start Date End Date Pk Trevizo MD [address] [place] [address] PCP - General Emergency Medicine 05/02/21 documented as of this encounter
--- OUTSIDE RECORDS SUMMARY | 2024-04-14 12:58 | XMS_ITS | Encounter Summary ---
Author Organization [facility] [place] [address] Care Team Providers Care Silk Screen Printing Racker Name Role Phone Unknown Primary Care Provider Unavailabl e Encounter Details Date Type Department Care Team (Late st Contact Info) Description 03/21/2021 12:05 AM EDT Ancillary Procedure Radiology Library at [facility] [place] [address] Brooke Mireles MD [address] [place] [address] Social History Tobacco Use Types Packs/Day Years [...] Associated Diagnosis Comments FILM LIBRARY STORAGE ONLY DX CHEST Routine 03/21/2021 12:05 AM EDT documented in this encounter Results * Film Library- Storage Only DX Chest (03/21/2021 12:05 AM EDT) Narrative MARILYNN - 03/22/2021 6:02 PM EDT This exam is auto-finalizing. It's purpose is for storage only. Brooke Mireles MD [facility] FILM LIBRARY ORD ERABLES MARILYNN [place] documented in this encounter Visit Diagnoses Not on filedocumented in this encounter Care Teams Silk Screen Printing Racker Relationship Specialty Start Date End Date Unknown None PCP - General 12/29/18 05/01/21 documented as of this encounter
--- OUTSIDE RECORDS SUMMARY | 2024-04-14 12:58 | XMS_ITS | Encounter Summary ---
Author Organization [facility] [place] [address] Care Team Providers Care Watershed Program Manager Name Role Phone Unknown Primary Care Provider Unavailabl e Encounter Details Date Type Department Care Team (Late st Contact Info) Description 03/22/2021 6:05 PM EDT Ancillary Procedure Radiology Library at [facility] [place] [address] Brooke Mireles MD [address] [place] [address] Social History Tobacco Use Types Packs/Day Years [...] Associated Diagnosis Comments FILM LIBRARY STORAGE ONLY MR HEAD Routine 03/22/2021 6:04 PM EDT documented in this encounter Results * Film Library- Storage Only MR Head (03/22/2021 6:04 PM EDT) Narrative MARILYNN - 03/22/2021 6:04 PM EDT This exam is auto-finalizing. It's purpose is for storage only. Brooke Mireles MD [facility] FILM LIBRARY ORD ERABLES [facility] [place] documented in this encounter Visit Diagnoses Not on filedocumented in this encounter Care Teams Watershed Program Manager Relationship Specialty Start Date End Date Unknown None PCP - General 12/29/18 05/01/21 documented as of this encounter
--- OUTSIDE RECORDS SUMMARY | 2024-04-14 12:58 | XMS_ITS | Encounter Summary ---
Author Organization [facility] [place] [address] Care Team Providers Care Search Engineer Name Role Phone Pk Trevizo MD Primary Care Provider [phone] Encounter Details Date Type Department Care Team (Late st Contact Info) Description 09/11/2021 Orders [place] [address] Leann Francois, RN *Screening for COVID-19 virus [...] virus documented in this encounter Care Teams Search Engineer Relationship Specialty Start Date End Date Pk Trevizo MD [address] [place] [address] PCP - General Emergency Medicine 05/02/21 documented as of this encounter
--- OUTSIDE RECORDS SUMMARY | 2024-04-14 12:58 | XMS_ITS | Encounter Summary ---
Author Organization [facility] [place] [address] Care Team Providers Care Cement Sack Breaker Name Role Phone Unknown Primary Care Provider Unavailabl e Reason for Referral * Diagnostic Test (Routine) - Closed Specialty Diagnoses / Procedures Referred By Kit iglesias Referred To Contact Diagnoses Stenosis of carotid artery, unspecified laterality Procedures Carotid Duplex, Bilateral Elena Benz APRN [facility] [place] [address] [facility] [address] [address] Referral ID Status Reason Start Date Expiration Date V isits Requested Visits Authorized [id number] Closed Specialty Service Requested 03/28/2021 03/28/2022 1 1 Encounter Details Date Type Department Care Team (Late st Contact Info) Description 03/28/2021 Orders [place] [address] Elena Benz APRN [facility] [place] [address] Stenosis of carotid artery, unspecified laterality Social History Tobacco Use Types Packs/Day Years Used Date Smoking Tobacco: Never Assessed Sex and Gender Information Value Date Recorded Sex Assigned at Not on file Gender Identity Not on file Sexual Orientation Lesbian or Stark 11/06/2022 5: 13 PM EDT documented as of this encounter Plan of Treatment Not on file documented as of this encounter Results * Carotid Duplex, Bilateral (05/02/2021 1:01 PM EDT) VB Text Report Department: Vascular Surgery Lab Patient: [id number] (KSENIA SADLER) CPT: 69735 ICD10: I65.21;I65.29 Referring Physician: ELENA BENZ, DEPOSIT CLERK ?? Indications: CVA, right ICA stenosis on OSH MRI, ? degree of stenosis ICD10 Diagnosis Code: I65.21, I65.29 Findings: ICA Proximal, Right ? PSV (cm/s): 433 ? EDV (cm/s): 153 ? ICA/CCA: 6.7 ? Plaque Structure: Echolucent ? Plaque Surface: Irregular ? %Stenosis: 70-99% ICA Distal, Right ? PSV (cm/s): 94 ? EDV (cm/s): 22 ? ICA/CCA: 1.4 CCA Distal, Right ? PSV (cm/s): 65 ? EDV (cm/s): 11 ? %Stenosis: <50% CCA Proximal, Right ? PSV (cm/s): 85 ? EDV (cm/s): 13 External Carotid Artery, Right ? PSV (cm/s): 102 ? EDV (cm/s): 10 ? %Stenosis: <50% Vertebral, Right ? PSV (cm/s): 72 ? EDV (cm/s): 21 ? Direction of Flow: Antegrade ICA Proximal, Left ? PSV (cm/s): 90 ? EDV (cm/s): 31 ? ICA/CCA: 1.2 ? Plaque Structure: Echogenic ? Plaque Surface: Irregular ? %Stenosis: <15% ICA Distal, Left ? PSV (cm/s): 114 ? EDV (cm/s): 37 ? ICA/CCA: 1.5 CCA Distal, Left ? PSV (cm/s): 78 ? EDV (cm/s): 23 ? %Stenosis: Minimal CCA Proximal, Left ? PSV (cm/s): 118 ? EDV (cm/s): 26 External Carotid Artery, Left ? PSV (cm/s): 132 ? EDV (cm/s): 6 ? %Stenosis: <50% Vertebral, Left ? PSV (cm/s): 58 ? EDV (cm/s): 20 ? Direction of Flow: Antegrade Interpretation: RIGHT: There is irregular plaque in the common carotid artery causing 25-35% stenosis by electronic calipers. There is echolucent, irregular plaque in the proximal internal carotid artery causing 70-99% stenosis when compared to the more distal internal carotid artery. The bifurcation level is in the mid neck. LEFT: A thin layer of circumferential plaque is present in the common carotid artery causing minimal stenosis. There is irregular plaque in the proximal internal carotid artery causing <15% stenosis when compared to the more distal internal carotid artery. The bifurcation level is in the mid neck. Vertebral Artery Data: Patent vertebral arteries with normal antegrade Doppler waveforms and velocities bilaterally. Comparison: No previous study in our vascular lab database for comparison. Electronically Signed by: KENY IVEY on 2021-05-02 08:31:11 PM [facility] VB Text Report End of Report [facility] 05/02/2021 1:01 PM EDT Elena Benz DEPOSIT CLERK VASCULAR ORDERABLE S [facility] documented in this encounter Visit Diagnoses Diagnosis Stenosis of carotid artery, unspecified laterality documented in this encounter Care Teams Cement Sack Breaker Relationship Specialty Start Date End Date Unknown None PCP - General 12/29/18 05/01/21 documented as of this encounter
--- OUTSIDE RECORDS SUMMARY | 2024-04-14 12:58 | XMS_ITS | Encounter Summary ---
Author Organization [facility] [place] [address] Care Team Providers Care Pastry Cook Helper Name Role Phone Unknown Primary Care Provider Unavailabl e Encounter Details Date Type Department Care Team (Late st Contact Info) Description 03/22/2021 Ancillary Procedure Radiology Library at [facility] [place] [address] Nora Lancaster MD [facility] [place] [address] Social History Tobacco Use Types Packs/Day Years [...] Comments FILM LIBRARY STORAGE ONLY CT HEAD AND SPINE Routine 03/22/2021 12:00 AM EDT documented in this encounter Results * Film Library- Storage Only CT Head And Spine (03/22/2021 12:00 AM EDT) Narrative [facility] 03/23/2021 12:47 PM EDT This exam is auto-finalizing. It's purpose is for storage only. Nora Lancaster MD IMG FILM LIBRARY O RDERABLES [facility] [place] documented in this encounter Visit Diagnoses Not on filedocumented in this encounter Care Teams Pastry Cook Helper Relationship Specialty Start Date End Date Unknown None PCP - General 12/29/18 05/01/21 documented as of this encounter
--- OUTSIDE RECORDS SUMMARY | 2024-04-14 12:58 | XMS_ITS | Encounter Summary ---
[place] [address] Care Team Providers Care Tacker Elastic Band Name Role Phone Pk Trevizo MD Primary Care Provider [phone] Reason for Visit * Consultation (Routine) - Closed Specialty Diagnoses / Procedures Referred By Kit saravia Referred To Contact Vascular Surgery Diagnoses Disorder of arteries and arterioles, unspecified CAROTID ARTERY STENOSIS WITH RESULTING CVA Nikos Massey MD [address] [place] [address] [facility] Vascular Surg [address] [place] [address] Referral ID Status Reason Start Date Expiration Date V isits Requested Visits Authorized [id number] Closed Consult, Test & Treat 03/28/2021 03/28/2022 2 2 Encounter Details Date Type Department Care Team (Late st Contact Info) Description 05/02/2021 1:00 PM EDT [place] [address] Mayte Heath Stenosis of carotid artery, unspecified laterality Social [...] Procedure Name Priority Date/Time Associated Diagnosis Comments PRG DUPLEX SCAN EXTRACRANIAL ART; COMPLETE BILAT STUDY Routine 05/02/2021 1:01 PM EDT Stenosis of carotid artery, unspecified laterality documented in this encounter Results * Carotid Duplex, Bilateral (05/02/2021 1:01 PM EDT) VB Text Report Department: Vascular Surgery Lab Patient: [id number] (KSENIA SADLER) CPT: 79778 ICD10: I65.21;I65.29 Referring Physician: ELENA BENZ, SATELLITE TV TECHNICIAN ?? Indications: CVA, right ICA stenosis on [...] [facility] 05/02/2021 1:01 PM EDT Elena Benz APRN VASCULAR ORDERABLE S [facility] documented in this encounter Visit Diagnoses Diagnosis Stenosis of carotid artery, unspecified laterality documented in this encounter Care Teams Tacker Elastic Band Relationship Specialty Start Date End Date Pk Trevizo MD [address] [place] [address] PCP - General Emergency Medicine 05/02/21 documented as of this encounter
--- OUTSIDE RECORDS SUMMARY | 2024-04-14 12:58 | XMS_ITS | Encounter Summary ---
Author Organization [facility] Address [facility] [place] [address] Care Team Providers Care Mining Engineering Technologist Name Role Phone Pk Trevizo MD Primary Care Provider [phone] Reason for Visit * Reason Comments Carotid Stenosis * Consultation (Routine) - Closed Specialty Diagnoses / Procedures Referred By Contac t Referred To Contact Vascular Surgery Diagnoses Disorder of arteries and arterioles, unspecified CAROTID ARTERY STENOSIS WITH RESULTING CVA Nikos Massey MD [address] [place] [address] [facility] [place] [address] [place] [address] Referral ID Status Reason Start Date Expiration Date V isits Requested Visits Authorized [id number] Closed Consult, Test & Treat 03/28/2021 03/28/2022 2 2 Encounter Details Date Type Department Care Team (Late st Contact Info) Description 05/02/2021 2:00 PM EDT Office Visit [place] [address] [facility] [place] [address] Stenosis of carotid artery, unspecified laterality Social History Tobacco Use Types Packs/Day Years Used Date Smoking Tobacco: Every Day Cigarettes Smokeless Tobacco: Never Tobacco Cessation:Ready to Q uit: No; Counseling Given: No Comments:varies to about 1-1.5 packs per day Sex and Gender Information Value Date Recorded Sex Assigned at Not on file Gender Identity Not on file Sexual Orientation Lesbian or Stark 11/06/2022 5: 13 PM EDT documented as of this encounter Last Filed Vital Signs Vital Sign Reading Time Taken Comments Blood Pressure 146/68 05/02/2021 1:54 PM EDT Pulse 78 05/02/2021 1:54 PM EDT Temperature - - Respiratory Rate - - Oxygen Saturation 98% 05/02/2021 1:54 PM EDT Inhaled Oxygen Concentration - - Weight 108.4 kg (239 lb) 05/02/2021 1:54 PM EDT Height 165.1 cm (5' 5) 05/02/2021 1:54 PM EDT Body Mass Index 39.77 05/02/2021 1:54 PM EDT documented in this encounter Progress Notes * Mickey Magallon MD - 05/02/2021 2:00 PM EDT OUTPATIENT VASCULAR SURGERY CONSULTATION Reason for Visit: R ICA stenosis History of Present Illness: This is a 56 y.o. female found to have carotid bruit, underwent duplex that shows severe R ICA stenosis, Asymptomatic. She smokes 1 ppd, no PERRY or CP with 1 flight of steps. reports that she has been smoking. She has been smoking about 1.00 pack per day. She has never usedsmokeless tobacco. Patient Active Problem List Diagnosis Code ??? Hypertension I10 ??? Obesity E66.9 ??? Abnormal vaginal bleeding with endometrial thickness greater than 5 mm present on transvaginal ultrasound in postmenopausal patient N95.0, R93.89 Current Outpatient Medications: ??? ascorbic acid, Vitamin C, (Vitamin C) 500 mg Tablet, Take by mouth., Disp: , Rfl: ??? atorvastatin (Lipitor) 80 mg Tablet, TAKE ONE TABLET BY MOUTH EVERY DAY, Disp: , Rfl: ??? medroxyPROGESTERone (PROVERA) 5 mg Tablet, TAKE ONE TABLET BY MOUTH TWICE A DAY, Disp: , Rfl: ??? norethindrone (Aygestin) 5 mg Tablet, TAKE 2 TABLETS BY MOUTH TWICE A DAY, Disp: , Rfl: ??? acetaminophen (TylenoL) 325 mg Capsule, Take by mouth., Disp: , Rfl: ??? nicotine (Nicotrol) 10 mg Cartridge, Inhale into the lungs., Disp: , Rfl: No Known Allergies Review of Systems: Constitutional (weight change, fever) - Denies Neuro (dizziness, seizures, numbness, tingling) - Denies Eyes (vision) - Denies Ears, nose, throat (hearing) - Denies Cardiovascular (CP) - Denies Respiratory (SOB) - Denies GI (abd pain, nausea, emesis, blood in stool) - Denies (hematuria, dysuria, frequency) - Denies Muscoloskeletal (extremity pain, weakness) - Denies Skin (ulcers, rashes) - Denies Functional Status/Social Hx: Family Hx: Negative for Thrombosis, Bleeding Disorders Physical Exam: BP 146/68 (BP Location (NBP): Left arm, Patient Position: Sitting, BP Cuff Sizes: Large Adult (32-43 cm)) Pulse 78 Ht 165.1 cm (5' 5) Wt 108.4 kg (239 lb) SpO2 98% BMI 39.77 kg/m?? General - NAD, appears stated age Neuro - Alert and Oriented, Motor Sensory grossly intact Skin - No prominent markings or lesions Ear, Nose, Throat - No masses, No lesions Cardiac - RRR, no murmurs Lungs - Clear Abd - Soft, NT, ND, No palpable pulsatile masses Musculoskeletal- full ROM upper and lower extremities Psych- alert oriented X3 , Extremities - Warm, pink, no edema, brisk capillary refill Vascular Exam: R L Carotid 2/2 bruit () 2/2 bruit () Radial 2/2 2/2 Femoral 2/2 2/2 Popliteal DP 2/2 2/2 PT 2/2 2/2 Labs: No results found for this or any previous visit (from the past 72 hour(s)). Studies: Department: Vascular Surgery Lab Patient: [id number] (KSENIA SADLER) CPT: 93078 ICD10: I65.21;I65.29 Referring Physician: ELENA ORTEGA, JOCELIN ?? Indications: CVA, right ICA stenosis on OSH MRI, ? degree of stenosis ?? ICD10 Diagnosis Code: I65.21, I65.29 ?? Findings: ?? ICA Proximal, Right ?PSV (cm/s): [...] normal antegrade Doppler waveforms and velocities bilaterally. ?? Comparison: No previous study in our vascular lab database for comparison. No flowsheet data found. Assessment and Plan: Asymptomatic, critical R ICA stenosis. I have explained the etiology of carotid occlusive disease, the risk of stroke in asymptomatic patients and various treatment options including medical management with aspirin (+/- Plavix), carotid endarterectomy and carotid stenting. I have explained the results of randomized clinical trials which demonstrated an annual 2-3% risk of stroke in patients managed medically with a critical stenosis. I have explained that while there is a risk of stroke with both endarterectomy (approx 1%) and carotid stenting (2%), it is significantly lower than with medicaltherapy and therefore we should consider intervention. She would like to proceed with R CEA I have e ncouraged a baby (81-mg) aspirin daily. I have described carotid distrubition neurologic symptoms and asked him to seek emergent medical attention if these should develop. documented in this encounter Plan of Treatment Not on file documented as of this encounter Visit Diagnoses Diagnosis Stenosis of carotid artery, unspecified laterality documented in this encounter Care Teams Mining Engineering Technologist Relationship Specialty Start Date End Date Pk Trevizo MD [address] [place] [address] PCP - General Emergency Medicine 05/02/21 documented as of this encounter
--- OUTSIDE RECORDS SUMMARY | 2024-04-14 12:58 | XMS_ITS | Encounter Summary ---
Author Organization [facility] [place] [address] Care Team Providers Care Furniture Mover Driver Name Role Phone Pk Trevizo MD Primary Care Provider [phone] Encounter Details Date Type Department Care Team (Late st Contact Info) Description 08/17/2021 Telephone [place] [phone] Cara Saldaña Social History Tobacco Use Types [...] * Telephone Encounter - Cara Saldaña - 08/17/2021 1:33 PM EST I spoke with Geeta - we have scheduled her for Surgery with Dr. Magallon to be on 09/01/21 - letter sent. documented in this encounter Plan of Treatment Not on file documented as of this encounter Visit Diagnoses Not on filedocumented in this encounter Care Teams Furniture Mover Driver Relationship Specialty Start Date End Date Pk Trevizo MD [address] [place] [address] PCP - General Emergency Medicine 05/02/21 documented as of this encounter
--- OUTSIDE RECORDS SUMMARY | 2024-04-14 12:58 | XMS_ITS | Encounter Summary ---
Author Organization [facility] [place] [address] Care Team Providers Care Velvet Cutter Name Role Phone Pk Trevizo MD Primary Care Provider [phone] Encounter Details Date Type Department Care Team (Late st Contact Info) Description 08/31/2021 Telephone [place] [phone] Cara Saldaña Social History Tobacco Use Types [...] Telephone Encounter - Cara Saldaña - 08/31/2021 10:25 AM EST Attempted to reach patient to let her know we need to postpone her Surgery tomorrow with Dr. Magallon. Unable to leave a voicemail due to mailbox full. I attempted to reach her daughter as well, I did leave a message that we needed to speak with her Mom so if she could reach out to her to have her call us that would be helpful. documented in this encounter Plan of Treatment Not on file documented as of this encounter Visit Diagnoses Not on filedocumented in this encounter Care Teams Velvet Cutter Relationship Specialty Start Date End Date Pk Trevizo MD [address] [place] [address] PCP - General Emergency Medicine 05/02/21 documented as of this encounter
--- OUTSIDE RECORDS SUMMARY | 2024-04-14 12:58 | XMS_ITS | Encounter Summary ---
Author Organization [facility] [place] [address] Care Team Providers Care Coiled Tubing Operator Name Role Phone Pk Trevizo MD Primary Care Provider [phone] Reason for Visit * Auth/Cert Specialty Diagnoses / Procedures Referred By Contac t Referred To Contact Diagnoses R ICA stenosis Procedures PRO THROMBOENDARTECTMY NECK, NECK INCIS @ENDARTERECTOMY, CAROTID, VERTEBRAL,SUBCLAVIAN W\WO PATCH GRAFT (WRVU 21.16) Referral ID Status Reason Start Date Expiration Date Visits Re quested Visits Authorized [id number] 1 1 Encounter Details Date Type Department Care Team (Late st Contact Info) Description 09/15/2021 2:14 PM EDT Anesthesia Event [place] [address] Elly Cutler MD [facility] [place] [address] Vladimir Simon MD [facility] [place] [address] Anesthesia Record Procedure Summary Procedure Name Responsible Anesthesiologist Anesthesia Start Time Anesthesia Stop Time @ENDARTERECTOMY, CAROTID, VERTEBRAL,SUBCLAVIA N W\WO PATCH GRAFT (WRVU 21.16) (Right: Neck) Elly Cutler MD 09/15/21 1414 09/15/21 1656 Events Date Time Event Comment 09/15/2021 1414 AN Verify 1414 Start 1414 An Start Data 1419 An Induction 1421 An Intubation 1433 Anesthesia Ready 1504 Procedure Start 1530 1530 Quick Note Stump pressure 81 mmHg with systemic pressure of 181 1530 Vascular Clamp ON 1604 Break/Relief In I assumed ca re for Break Relief before which we: 1. Identified the patient 2. Identified the responsible provider(s) 3. Reviewed the pertinent medical history 4. Discussed the surgical plan and course 5. Reviewed intra-op anesthesia management and issues during anesthesia 6. Set expectations for the relief (and/or post-procedure) period 7. Allowed opportunity for questions and acknowledgement of understanding Jigar Rodriguez CRNA 1629 Extubation/LMA Out 1644 an stop data 1656 Recovery or ICU Handoff Kareen ent care was transferred to the destination unit staff after review of the patient's medical history, current anesthetic/surgical status and plan, according to the Provider Handoff Checklist. 165 Stop Meds Name Total fentaNYL 250 mcg IV Lidocaine 100 mg Propofol 480 mg Rocuronium 80 mg PHENYLephrine 520 mcg Heparin 17,000 Units Protamine 50 mg Dexamethasone 4 mg Ondansetron 8 mg ceFAZolin 2 g PHENYLephrine INF 3,570 mcg Labetalol 20 mg Esmolol 80 mg Dexmedetomidine 40 mcg Sugammadex 200 mg lactated ringers infusion 1,000 mL * Agents Name O2 Air N2O Sevoflurane (et) * Blood No blood administrations on file. Lines, Drains, and Airways Type Details Placement Removal (RETIRED) Peripheral IV Line - Single Lumen 09/15/21; 1404; median cubital vein (antecubital fossa), left; wwlh-flk-latpur catheter system; Anatomical Landmarks; 20 gauge, 1 in length; DORENE Marte; distraction, tolerated well, appears comfortable; 09/16/21; 1200 09/15/21 1404 by Karla Mayo RN 09/16/21 1200 by Drea Naranjo RN ETT Mask Ventilation: Blaise lara (1); ETT Type: Cuffed, Oral; ETT Size: 7 mm; Mac Blade: 3; Notes: Asleep, Pre-O2; Attempts: 1; Laryngoscopy Grade: 1; ETT Placement Verified By: Auscultation, Capnometry, Visual; Secured at Teeth: 21 cm; Inserted by: rebekah marrero; Removal Date: 09/15/21; Removal Time: 16409/15/21 1426 by Vladimir Simon MD 09/15/21 1644 by Jigar Rodriguez CRNA Urethral Catheter 09/15/21; 1440; Surg julio longer than 2 hours; indwelling double lumen catheter; latex; 14; inserted at this facility (Inserted w ease by Kobe Smith, DORENE); 1; 5; 10; other (see comments) (GA); drainage bag to dependent drainage; 09/16/21; 0453 09/15/21 1440 by Paulina Smith RN 09/16/21 0453 by Kitty Saenz LNA (RETIRED) Peripheral IV Line - Single Lumen 09/15/21; 1441; cephalic vein (lateral side of arm), right; 16 gauge; (pt pulled out on awakening in or); 09/15/21; 1645 09/15/21 1441 by Vladimir Simon MD 09/15/21 1645 by Casandra Munguia RN Arterial Line 09/15/21; 1441; radi al artery, left; 20 gauge; Anatomical Landmarks, Guidewire; continuous blood pressure monitoring, frequent blood gas measurement; rebekah marrero; Sterile Prep, Sterile Gloves; 09/15/21; 203409/15/21 1441 by Vladimir Simon MD 09/15/21 203 by Alyson Porter RN Incision 09/15/21; 1505; Righ t, lateral, anterior; neck; LDA not present upon assessment; 11/19/23; 1222 09/15/21 1505 by Paulina Smith RN 11/19/23 1222 by Alba Brady RN documented in this encounter Social History [...] OR Notes * Anesthesia Postprocedure Evaluation - Elly Cutler MD - 09/15/2021 5:05 PM EDT Department of Anesthesiology Post-procedure Note Patient: Geeta Sadler Procedure Summary Date: 09/15/21 Room / Location: [facility] OR [facility] MAIN OR Anesthesia Start: 1414 Anesthesia Stop: 165 Procedure: @ENDARTERECTOMY, CAROTID, VERTEBRAL,SUBCLAVIAN W\WO PATCH GRAFT (WRVU 21.16) (Right Neck) Diagnosis: Stenosis of carotid artery, unspecified laterality Pre-op testing (R ICA stenosis) Surgeons: Mickey Magallon MD Responsible Provider: Elly Cutler MD Anesthesia Type: general ASA Status: 3 All Anesthesia Providers: Anesthesiologist: Elly Cutler MD Continuous Linter Drier Operator: Vladimir Simon MD Vitals Value Taken Time BP 156/79 09/15/21 1700 Temp Pulse 82 09/15/21 1705 Resp 13 09/15/21 1705 SpO2 94 % 09/15/21 1705 Pain Level Vitals shown include unvalidated device data. Patient Location: PACU/[facility] Level of Consciousness: Awake and Alert Pain Management: Satisfactory Analgesia PONV: PONV Resolved with Rx Cardiovascular Status: Hemodynamically Stable Respiratory Status: Stable Respiratory Status and Supplemental O2 (NC or FM) Postoperative Fluid Status: Intravascular EUvolemia Possible Anesthetic Complications: NONE apparent at time of evaluation Final Primary Anesthesia Type: General (The anesthetic type performed was the same as planned.) Comments: Rapid emergence from anesthesia with sevoflurane 0.7%. Patient was highly mobile and agitated and inadvertently dislodged a peripheral IV and arterial line. 30 mg precedex administered withlittle effect through remaining IV. Propofol was administered to safely transfer patient to bed [facility]. Patient is now oriented and calm in PACU, complaining of nausea. Phenergan and compazine available.No issues with surgical site. Elly Cutler MD * Anesthesia Preprocedure Evaluation - Elly Cutler MD - 09/14/2021 2:12 PM EDT Pre-Anesthesia Evaluation for: Geeta A Doroteo a 56 y.o. female. Procedure(s): @ENDARTERECTOMY, CAROTID, VERTEBRAL,SUBCLAVIAN W\WO PATCH GRAFT (WRVU 21.16) Patient Active Problem List Diagnosis Date Noted [...] disorder No past surgical history on file. Social History Tobacco Use ??? Smoking status: Current Every Day Smoker Packs/day: 1.50 ??? Smokeless tobacco: Never Used ??? Tobacco comment: varies to about 1-1.5 packs per day Substance Use Topics ??? Alcohol use: Not on file Social History Substance and Sexual Activity Drug Use Not on file No Known Allergies Medications: MAR and/or home medications have been reviewed. Physical Exam: Preprocedure Vitals Current as of 09/14/21 1412 No BP, pulse, respiration, SpO2, or temperature recorded. Height: Weight: BMI: IBW: Airway Assessment: Mallampati: I TM distance: >3 FB Neck ROM: full Cardiovascular Assessment: Rhythm: regular Rate: normal system normal Pulmonary Assessment: (-) wheezes pulmonary exam normal Dental Assessment: - normal exam Misc Assessment: IV access: Peripheral line Other exam findings: Patient complains of residual weakness of left hand from stroke last year, butunable to appreciate weakness on physical examination. Last Filed Perioperative Cognitive Screening None Anesthesia Plan: ASA 3 general, with a(n) intravenous induction Patient is a 56 year old female who presents for right CEA in the setting of carotid stenosis. PMH includes HTN, obesity BMI 40, 1PPD smoker, stroke with left sided weakness and speech abnormalities over 1 year ago with residual left upper extremity weakness. Carotid duplex: R ICA 70-99% No anesthesia/cardiac studies on file NPO appropriate, denies issues with GERD, still smoking 1-1.5 PPD. Denies fevers/chills/SoB. Plan: GAETT, arterial line Vladimir Simon MD Anesthesiology PGY3 The patient was informed of the risks, benefits and alternatives of anesthesia. These risks included, but were not limited to, post-operative nausea and/or vomiting, pain, sore throat, dental/lip injury, and other rare but serious complications such as cardiac instability/arrest, neurologic event, awareness, severe allergic reactions, position-related nerve injuries, and need blood transfusions. All questions sought and answered. Region - [facility] Informed Consent: Anesthetic plan and risks discussed with patient. Use of blood products discussed with patient who consented to blood products. Plan discussed with attending. Anesthesia Screening documented in this encounter Plan of Treatment Not on file documented as of this encounter Visit Diagnoses Not on filedocumented in this encounter Administered Medications Inactive Administered Medications - up to 3 most recent administrations Medication Order MAR Action Action Date Dose Rate Site ceFAZolin (Ancef) 1 g in dextrose 5% 50 mL infusion Intravenous, PRN, Starting on Sat09/15/21 at 1433, Until Sat09/15/21 at 1656, Administer over 30 Minutes, Anesthesia Intra-op Given 09/15/2021 2:33 PM EDT 2 g dexamethasone (Decadron) injection Intravenous, PRN, Starting on Sat09/15/21 at 1558, Until Sat09/15/21 at 1656, Anesthesia Intra-op, Routine Given 09/15/2021 3:58 PM EDT 4 mg dexmedetomidine (Precedex) (4 mcg/mL) bolus injection (Anesthsia) Intravenous, PRN, Starting on Sat09/15/21 at 1631, Until Sat09/15/21 at 1658, Anesthesia Intra-op, Routine Given 09/15/2021 4:35 PM EDT 4 mcg Given 09/15/2021 4:34 PM EDT 8 mcg Given 09/15/2021 4:33 PM EDT 8 mcg esmoloL (Brevibloc) (10 mg/mL) injection Intravenous, PRN, Starting on Sat09/15/21 at 1628, Until Sat09/15/21 at 1657, Anesthesia Intra-op, Routine Given 09/15/2021 4:34 PM EDT 20 mg Given 09/15/2021 4:31 PM EDT 20 mg Given 09/15/2021 4:29 PM EDT 20 mg fentaNYL (pf) (50 mcg/mL) multi-dose injection Intravenous, PRN, Starting on Sat09/15/21 at 1419, Until Sat09/15/21 at 1656, Anesthesia Intra-op, Routine Given 09/15/2021 3:05 PM EDT 50 mcg Given 09/15/2021 2:58 PM EDT 50 mcg Given 09/15/2021 2:39 PM EDT 50 mcg heparin (porcine) (1,000 units/mL) injection Intravenous, PRN, Starting on Sat09/15/21 at 1518, Until Sat09/15/21 at 1656, Anesthesia Intra-op, Routine Given 09/15/2021 3:41 PM EDT 5,000 Uni ts Given 09/15/2021 3:30 PM EDT 2,000 Units Given 09/15/2021 3:18 PM EDT 10,000 Units labetaloL (Normodyne) (5 mg/mL) multi-dose injection Intravenous, PRN, Starting on Sat09/15/21 at 1624, Until Sat09/15/21 at 1656, Anesthesia Intra-op, Routine Given 09/15/2021 4:38 PM EDT 10 mg Given 09/15/2021 4:24 PM EDT 10 mg lactated ringers infusion 1,000 mL, at 100 mL/hr, Intravenous, CONTINUOUS, Starting on Sat09/15/21 at 1345, Until Sat09/15/21 at 1929, Day of Surgery (Day of Procedure) Restarted 09/15/2021 2:14 PM EDT New Bag 09/15/2021 2:08 PM EDT 1,000 mLs 100 mL/hr lidocaine (pf) (Xylocaine) (20 mg/mL) 2% injection syringe Intravenous, PRN, Starting on Sat09/15/21 at 1419, Until Sat09/15/21 at 1656, Anesthesia Intra-op, Routine Given 09/15/2021 2:19 PM EDT 100 mg ondansetron (pf) (Zofran) (2 mg/mL) injection Intravenous, PRN, Starting on Sat09/15/21 at 1624, Until Sat09/15/21 at 1659, Anesthesia Intra-op, Routine Given 09/15/2021 4:24 PM EDT 8 mg PHENYLephrine (Travis-Synephrine) (80 mcg/mL) in sodium chloride 0.9% 250 mL infusion Intravenous, CONTINUOUS PRN, Starting on Sat09/15/21 at 1510, Until Sat09/15/21 at 1656, Anesthesia Intra-op, Routine Rate/Dose Change 09/15/2021 4:09 PM EDT 30 mcg/min 22.5 mL/hr Rate/Dose Change 09/15/2021 4:05 PM EDT 20 mcg/min 15 mL/h r Rate/Dose Change 09/15/2021 3:38 PM EDT 50 mcg/min 37.5 mL /hr PHENYLephrine in NS (PF) (TRAVIS-SYNEPHRINE) 0.8 mg/10 mL (80 mcg/mL) multi-dose injection Syrg Intravenous, PRN, Starting on Sat09/15/21 at 1436, Until Sat09/15/21 at 1656, Anesthesia Intra-op, Routine Given 09/15/2021 3:29 PM EDT 80 mcg Given 09/15/2021 3:27 PM EDT 80 mcg Given 09/15/2021 3:24 PM EDT 80 mcg propofoL (Diprivan) 10 mg/mL bolus injection (Anesthesia) Intravenous, PRN, Starting on Sat09/15/21 at 1419, Until Sat09/15/21 at 1656, Anesthesia Intra-op Given 09/15/2021 4:41 PM EDT 20 mg Given 09/15/2021 4:39 PM EDT 20 mg Given 09/15/2021 4:32 PM EDT 40 mg protamine (10 mg/mL) injection Intravenous, PRN, Starting on Sat09/15/21 at 1605, Until Sat09/15/21 at 1656, Anesthesia Intra-op, Routine Given 09/15/2021 4:08 PM EDT 45 mg Given 09/15/2021 4:05 PM EDT 5 mg rocuronium (Zemuron) (10 mg/mL) multi-dose injection Intravenous, PRN, Starting on Sat09/15/21 at 1419, Until Sat09/15/21 at 1656, Anesthesia Intra-op, Routine Given 09/15/2021 3:03 PM EDT 30 mg Given 09/15/2021 2:19 PM EDT 50 mg sugammadex (Bridion) 100 mg/mL injection Intravenous, PRN, Starting on Sat09/15/21 at 1624, Until Sat09/15/21 at 1659, Anesthesia Intra-op, Routine Given 09/15/2021 4:24 PM EDT 200 mg documented in this encounter Care Teams Coiled Tubing Operator Relationship Specialty Start Date End Date Pk Trevizo MD [address] [place] [address] PCP - General Emergency Medicine 05/02/21 documented as of this encounter
--- OUTSIDE RECORDS SUMMARY | 2024-04-14 12:58 | XMS_ITS | Encounter Summary ---
Author Organization [facility] [place] [address] Care Team Providers Care Automotive Service Assistant Name Role Phone Pk Trevizo MD Primary Care Provider [phone] Encounter Details Date Type Department Care Team (Late st Contact Info) Description 05/11/2021 Orders [place] [address] Senia Mccoy RN Stenosis of carotid artery, [...] documented as of this encounter Results * EKG 12 Lead (09/15/2021 1:44 PM EDT) Ventricular rate 87 BPM MUSE SYSTEM Atrial Rate 87 BPM MUSE SYSTEM P-R Interval 142 ms MUSE SYSTEM QRS Duration 90 ms MUSE SYSTEM Q-T Interval 362 ms MUSE SYSTEM QTC Calculated (Bezet) 435 ms MUSE SYSTEM Calculated P [place] 44 degrees MUSE SYSTEM Calculated R [place] -12 degrees MUSE SYSTEM Calculated T [place] 59 degrees MUSE SYSTEM INTERPRETATION Normal sinus rhythm Minimal voltage criteria for LVH, may be normal variant ( Santos product ) Poor R wave progression Abnormal ECG No previous ECGs available Confirmed by MD GUILLEN SALVATORE ([id number]) on 09/15/2021 2:09:45 PM MUSE SYSTEM 09/15/2021 1:44 PM EDT 09/15/2021 2:09 PM EDT Mickey Magallon MD ECG ORDERABLES MUSE SYSTEM documented in this encounter Visit Diagnoses Diagnosis Stenosis of carotid artery, unspecified laterality Pre-op testing Preoperative examination, unspecified documented in this encounter Care Teams Automotive Service Assistant Relationship Specialty Start Date End Date Pk Trevizo MD [address] [place] [address] PCP - General Emergency Medicine 05/02/21 documented as of this encounter
--- OUTSIDE RECORDS SUMMARY | 2024-04-14 12:58 | XMS_ITS | Encounter Summary ---
Author Organization [facility] [place] [address] Care Team Providers Care Senior Communications Engineer Name Role Phone Unknown Primary Care Provider Unavailabl e Encounter Details Date Type Department Care Team (Late st Contact Info) Description 03/22/2021 6:10 PM EDT Ancillary Procedure Radiology Library at [facility] [place] [id number] Brooke Mireles MD [address] [place] [address] Social History Tobacco Use Types Packs/Day Years [...] Comments FILM LIBRARY STORAGE ONLY MR HEAD AND SPINE Routine 03/22/2021 6:05 PM EDT documented in this encounter Results * Film Library- Storage Only MR Head and Spine (03/22/2021 6:05 PM EDT) Narrative MARILYNN - 03/22/2021 6:05 PM EDT This exam is auto-finalizing. It's purpose is for storage only. Brooke Mireles MD G FILM LIBRARY ORD ERABLES CAM[place]E Song documented in this encounter Visit Diagnoses Not on filedocumented in this encounter Care Teams Senior Communications Engineer Relationship Specialty Start Date End Date Unknown None PCP - General 12/29/18 05/01/21 documented as of this encounter
[2024-04-14 16:11] LABS: Calculated LDL 59 mg/dL (<100); Cholesterol 120 mg/dL (<200); HDL Cholesterol 46 mg/dL (40-60); Triglyceride 76 mg/dL (<150)
== END 2024-04-14 12:54 | disposition home or self-care (01) ==
LOC: NCHCN 12:53
PROVIDERS: PCP Family Medicine; Visit Provider Student in an Organized Health Care Education/Training Program
DX: E11.9 Type 2 diabetes mellitus without complications (principal)
CPT/HCPCS: 80061

== ENCOUNTER 2024-04-30 01:51 | Outpatient (CLI) | payer MEDICARE, SELFPAY ==
--- NOTE | 2024-04-30 | DI.CTLCSR_ITS ---
Exam(s) CT CHEST LUNG CANCER SCREEN EXAM: CT CHEST LUNG CANCER SCREEN CLINICAL HISTORY: Nicotine dependence, F17.210, current smoker, screening TECHNIQUE: Imaging Protocol: Axial computed tomography images with coronal and sagittal reformatted images were created and reviewed. Low dose screening protocol. FINDINGS: Tracheobronchial tree: No bronchiectasis or mucus plugging. Mediastinum and Deann: No dominant adenopathy or fluid collection. Pulmonary parenchyma: No consolidation or dominant measurable mass. Mild emphysematous changes. No si gnificant interstitial changes. Lung Nodules: 5 granuloma medial left lung base. No suspicious nodules. Pleura: No effusion. No pneumothorax. Heart: The heart is not dilated. No coronary artery calcifications are seen. No pericardial effusion. Aorta: Thoracic aorta non-dilated. Upper abdomen: Unremarkable. Bones: Prominent endplate osteophytes in the thoracic spine. No compression fractures. Soft Tissues: Unremarkable. IMPRESSION: No suspicious pulmonary nodules. Lung RADS Cat 1 - Negative: No nodules and definitely benign nodules Lung-RADS 1.0 CATEGORIES: Category 0 - Prior chest CT exam(s) being located for comparison. Category 1 - Annual screening in 12 months. No nodules or definitely benign nodules. Category 2 - Annual screening in 12 months. Benign appearance. Nodules with low likelihood of becomin g active cancer. Category 3 - 6-month follow-up. Probably benign. Short-term follow-up suggested. Nodules with low lik elihood of becoming active cancer. Category 4A - 3-month follow-up and CT/PET if >8 mm in size. Suspicious finding. Findings which requi re additional testing. Category 4B - Findings which require additional testing and tissue sampling. Category 4X - Category 3 or 4 nodules with additional features or imaging findings that increases the suspicion of malignancy. Modifier S- Potentially clinically significant findings (non lung cancer) RADIATION DOSE DELIVERED: !Error Total DLP DATA REPOSITORY: All CT scans at this facility are submitted to the National Radiology Data Registry (NRDR) Dose Index Registry (DIR) with the [employer] (ACR). RADIATION OPTIMIZATION: All CT scans at this facility use at least one of these dose optimization te chniques: automated exposure control; mA and/or kV adjustment per patient size (includes targeted exa ms where dose is matched to clinical indication); or iterative reconstruction.
== END 2024-04-30 02:11 ==
LOC: DI 01:51
PROVIDERS: PCP Family Medicine; Visit Provider Student in an Organized Health Care Education/Training Program
DX: F17.210 Nicotine dependence, cigarettes, uncomplicated (principal); Z12.2 Encounter for screening for malignant neoplasm of respiratory organs
CPT/HCPCS: 71271

== ENCOUNTER 2025-01-17 17:22 | Emergency (ER) | payer MEDICARE, SELFPAY ==
[2025-01-17 17:33] VITALS: BP 177/83; PULSE 86; RESP 16; TEMP 36.7; O2SAT 92
--- NOTE | 2025-01-17 19:00 | DI.CT_ITS ---
Exam(s) CT LOWER EXTREMITY LT W EXAM: CT LOWER EXTREMITY LT W CLINICAL HISTORY: deep wound, L robledo. TECHNIQUE: Imaging Protocol: Axial computed tomography images with coronal and sagittal reformatted images were created and reviewed. Field of view includes the knee through ankle. CONTRAST MATERIAL: Intravenous: Omnipaque 350 Contrast volume:100 ml Contrast route:IV - COMPARISON: CT RIGHT LOWER EXTREM WO CONTRAST from 09/03/2015 CR RIGHT KNEE COMPLETE from 09/03/2015 FINDINGS: Bones: There is no evidence of fracture or dislocation. No cellulitic or osteomyelitic changes are identified. No lytic or sclerotic lesions are identified. Joints: Small knee joint effusion. Mild patellofemoral joint space narrowing and periarticular spurring. [id number] narrowing of the medial femoral tibial joint space. Soft Tissues: Large wound in the anterior lower leg. Diffuse subcutaneous edema. No drainable abscess. No abnormal gas collections or abscess. Chronic soft tissue calcifications. Small Castellon's cyst. Area of anterior scarring at the level of the knee. IMPRESSION: Large anterior soft tissue wound above the level of the ankle. No evidence of abscess. Significant diffuse subcutaneous edema. RADIATION DOSE DELIVERED: 780.3mGy.cm Total DLP DATA REPOSITORY: All CT scans at this facility are submitted to the National Radiology Data Registry (NRDR) Dose Index Registry (DIR) with the [employer] (ACR). RADIATION OPTIMIZATION: All CT scans at this facility use at least one of these dose optimization techniques: automated exposure control; mA and/or kV adjustment per patient size (includes targeted exams where dose is matched to clinical indication); or iterative reconstruction.
--- NOTE | 2025-01-17 19:18 | W.ED.GENAD ---
Discharge Plan Discharge Details Chief Complaint: Cellulitis Clinical Impression: Wound of left lower extremity, Cellulitis, Hypomagnesemia Primary Care Provider: Pk Trevizo ED Provider: Guadalupe Bruno Home Meds and New Rx's Prescriptions: No Action aspirin 81 mg tablet,chewable 81 mg PO DAILY vitamin B complex [B Complex-Vitamin B12] Tablet 1 tab PO DAILY atorvastatin 20 mg tablet 20 mg PO QHS Qty: 90 3RF acetaminophen 325 mg tablet 650 mg PO Q6H PRN metformin 500 mg tablet 1,000 mg PO BID HPI General Date/Time Provider Initiated Documentation: 01/17/25 17:47. HPI Narrative: Geeta is a 60-year-old female with diabetes, peripheral neuropathy, stroke, tobacco use, obesity, and anemia presents to the emergency department today for evaluation of infected wound to her left lower leg. Sustained laceration to her left lower leg after walking into a bed frame 10 days ago, resulting in a cut. She went camping in the following days, flies were attracted to the wound. She has since developed worsening pain, swelling, pus drainage, and maggots to the wounds. Denies associate fevers/chills, malaise, changes in energy levels, change in p.o. intake, abdominal pain, nausea/vomiting, change in peripheral neuropathy. She does have poorly controlled diabetes, is not taking prescribed metformin and glipizide. Not sure of last A1c, is not prescribed insulin. Related Data Home Medications ?Medication ?Instructions ?Recorded ?Confirmed aspirin 81 mg chewable tablet 81 mg PO DAILY 05/22/21 01/17/25 acetaminophen 325 mg tablet 650 mg PO Q6H PRN 06/06/22 01/17/25 metformin 500 mg tablet 1,000 mg PO BID 06/06/22 01/17/25 atorvastatin 20 mg tablet 20 mg PO QHS #90 tabs 07/31/22 01/17/25 vitamin B complex (B 1 tab PO DAILY 07/31/22 01/17/25 Complex-Vitamin B12 tablet) Previous Rx's ?Medication ?Instructions ?Recorded atorvastatin 20 mg tablet 20 mg PO QHS #90 tabs 07/31/22 Allergies Allergy/AdvReac Type Severity Reaction Status Date / Time paclitaxel Allergy Severe Unknown Verified 01/17/25 17:36 General Stated Complaint: Cellulitis RHONDA: 3 Exam Narrative Exam Narrative: General Appearance: Normal. Vital signs: hypertension noted, no tachycardia, tachypnea, or fever. Respiratory: Work of breathing, lung sounds clear bilaterally Cardiovascular: Heart sounds, regular rate and rhythm Gastrointestinal: Abdomen soft, nondistended, nontender to palpation. Extremities: 1 cm x 6 cm wound to L anterior robledo, approx 0.5 cm deep. Skin: Wound on left lower leg with swelling and white pus drainage. Surrounding skin macerated. Mild pedal edema. Venous stasis dermatitis noted bilaterally. Psychiatric: Normal. Course Vital Signs Vital signs: Vital Signs Temperature 36.7 C 01/17/25 17:33 Pulse 86 01/17/25 17:33 Respiratory Rate 16 01/17/25 17:33 Blood Pressure 177/83 H 01/17/25 17:33 Pulse Oximetry 92 01/17/25 17:33 Temperature 36.7 C 01/17/25 17:33 Temperature Source Oral 01/17/25 17:33 Pulse 86 01/17/25 17:33 Respiratory Rate 16 01/17/25 17:33 Blood Pressure 177/83 H 01/17/25 17:33 Blood Pressure Position Sitting 01/17/25 17:33 Pulse Oximetry 92 01/17/25 17:33 Oxygen Delivery Method Room Air 01/17/25 17:33 Oxygen Flow Rate 0 01/17/25 17:33 Lab/Test Results Lab/Test Results: 01/17/25 19:13 Blood Blood Culture - Pending 01/17/25 19:13 Blood Blood Culture - Pending Medical Decision Making Initial Assessment: 60-year-old female with diabetes, peripheral neuropathy, stroke, tobacco use, obesity, and anemia presents with left lower leg wound draining white pus with maggot infestation. Patient with poorly controlled diabetes. History and presentation concerning for wound with surrounding cellulitis, possible extension into deeper tissue/osteomyelitis. Patient does not meet SIRS criteria. History and presentation not concerning for necrotizing fasciitis. ED Course: - Wound assessed for depth. - Photograph taken. - Blood work ordered, including blood cultures - Tylenol administered for pain relief. I independently interpreted the following tests: CBC reassuring, no leukocytosis. CMP notable for creatinine 1.2, unchanged from previous. Mild hypomagnesemia noted, 1.5. Inflammatory markers elevated, CRP 8.[address] sed rate [address] lower extremity performed, significant diffuse soft tissue edema of the lower leg with large anterior soft tissue ulcer noted just above the ankle, no evidence of abscess, myositis, fasciitis, or bony abnormality. Last A1c from 01/11/2022, 7.9. Unable to locate patient's medical records on [facility]. While in the emergency department care and received IV vancomycin, cefepime, and magnesium supplementation. Final Assessment: Left lower leg wound draining with surrounding cellulitis Presented for transfer to [facility] and [facility], awaiting determination re: bed availability Handoff report given to Dr. Sanchez, overnight attending Patient consented to the use of PATT Imaging Data Radiologic Study: Radiologist's impression: PROCEDURE INFORMATION: Exam: CT Left Lower Extremity With Contrast, Leg Exam date and time: 01/17/2025 8:33 PM Age: 60 years old Clinical indication: Other: Deep wound, L robledo TECHNIQUE: Imaging protocol: CT of the left lower extremity with intravenous contrast was performed. Exam focused on the lower leg. Contrast material: 350; Contrast volume: 100 ml; Contrast route: INTRAVENOUS (IV); COMPARISON: No relevant prior studies available. FINDINGS: Bones/joints: Mild lateral patellar subluxation. Osseous alignment is otherwise normal. No acute fracture or significant arthritic changes. Small Castellon's cyst incidentally noted. Soft tissues: Large open soft tissue wound or ulceration of the inferomedial aspect of the left lower leg just above the ankle. Prominent diffuse soft tissue swelling throughout the visualized portion of the left lower extremity. No significant muscular edema or intermuscular fascial edema. Longitudinal scar tissue along the anterior aspect of the left lower leg. No loculated soft tissue fluid collection. No abnormal soft tissue gas IMPRESSION: Significant diffuse soft tissue edema of the left lower leg with a large anterior soft tissue ulcer just above the ankle. No evidence of abscess, myositis or fasciitis. No significant osseous abnormality [facility] All Active Problems (Updated 01/17/25 @ 22:34 by Guadalupe Qureshi) Hypomagnesemia (Acute) Cellulitis (Acute) Wound of left lower extremity (Acute) Ataxia (Acute) Diabetes (Chronic) Screening for colon cancer (Acute) Vitamin B12 deficiency (Acute) Bilateral foot-drop (Acute) Peripheral neuropathy (Acute) Endometrial cancer (Acute) Status post robotically assisted staging hysterectomy with vascular injury to the kidney performed at [facility] 10/17/2021. FIGO grade 3 with serosal surface involvement Tobacco abuse (Acute) Cerebral ischemic stroke due to global hypoperfusion with watershed infarct (Acute) Carotid stenosis, right (Acute) Anemia (Chronic) CVA (cerebral vascular accident) (Acute) Obesity (Chronic) Medical History Asthma Hypertension Pelvic kidney Type 2 diabetes mellitus Surgical History S/P carotid endarterectomy S/P hysterectomy with oophorectomy Social History Smoking/Tobacco Use Status: Current every day Tobacco Type: cigarettes Tobacco: How many years used: 30 Quit status: not considering quitting Counseling given: provider counseling Smoking risk assessment performed?: Yes Alcohol Intake: current Alcohol Intake frequency: a few times a week Drug use: Never Substance use type: does not use current occupation: Disabled. Previous worked at [employer] in [place] Do you feel safe at home: Yes Do you feel safe in your relationship?: Yes Female Reproductive History Menstrual Age of Menarche: 11 control method: none Menopause type: natural Date of menopause: 07/01/17 History History 2 Para 2 Hx # Term Pregnancies Multiple births Hx # Pregnancies Ectopic pregnancies AB induced Hx Number of Living Children 2 AB spontaneous
[2025-01-17 19:30] VITALS: BP 140/74; PULSE 80; RESP 16; O2SAT 92
[2025-01-17] MEDS: Acetaminophen 325 MG TAB 650 MG PO (19:41)
[2025-01-17 19:59] LABS: Abs Immature Grans 0.02 10^3/uL (0.0-0.06); HCT 41.4 % (36.0-46.0); HGB 12.7 g/dL (11.2-15.7); Immature Grans % 0.2 %; MCH 30.0 pg (27.0-33.0); MCHC 30.7 % (32.0-36.0); MCV 98 fL (80-95); MPV 11.2 fL (8.0-11.0); Platelet Count 208 10^3/uL (130-400); RBC 4.24 10^6/uL (3.93-5.22); RDW 16.4 % (11.7-14.6); RDW-SD 57.1 fL; WBC 9.64 10^3/uL (4.4-10.8)
[2025-01-17 20:02] LABS: ESR 52 mm/hr (0-30)
[2025-01-17 20:15] LABS: C-Reactive Protein 8.63 mg/dL (<or=0.5)
[2025-01-17 20:18] LABS: ALT 24 U/L (14-59); AST 11 U/L (15-37); Albumin 3.0 g/dL (3.4-5.0); Alkaline Phosphatase 87 U/L (46-116); Anion Gap 6.5 mmol/L (3-11); BUN 14 mg/dL (7-18); Bilirubin, Total 0.5 mg/dL (0.2-1.0); CO2 32.5 mmol/L (21.0-32.0); Calcium 8.3 mg/dL (8.5-10.1); Chloride 103 mmol/L (98-107); Estimated GFR 51.50 (mL/min/1.73m2); Glucose 143 mg/dL (74-106); Magnesium 1.5 mg/dL (1.8-2.4); Potassium 3.8 mmol/L (3.5-5.1); Sodium 142 mmol/L (136-145); Total Protein 7.1 g/dL (6.4-8.2)
[2025-01-17 20:30] VITALS: BP 150/72; PULSE 78; RESP 16; O2SAT 93
[2025-01-17] MEDS: Normal Saline - Diluent 50 ML VIAL IJ (20:36)
[2025-01-17] MEDS: Omnipaque 350 MG/ML 100 ML BTL IJ (20:37)
[2025-01-17 22:00] VITALS: BP 144/73; PULSE 72; RESP 14; O2SAT 93
[2025-01-17] MEDS: Magnesium Oxide 400 MG TAB PO (22:22)
[2025-01-17] MEDS: CEFEPIME 1 GM in Normal Saline 50 ML IVPB (22:29)
--- NOTE | 2025-01-17 22:29 | DI.VRAD_ITS ---
PROCEDURE INFORMATION: Exam: CT Left Lower Extremity With Contrast, Leg Exam date and time: 01/17/2025 8:33 PM Age: 60 years old Clinical indication: Other: Deep wound, L robledo TECHNIQUE: Imaging protocol: CT of the left lower extremity with intravenous contrast was performed. Exam focused on the lower leg. Contrast material: 350; Contrast volume: 100 ml; Contrast route: INTRAVENOUS (IV); COMPARISON: No relevant prior studies available. FINDINGS: Bones/joints: Mild lateral patellar subluxation. Osseous alignment is otherwise normal. No acute fracture or significant arthritic changes. Small Castellon's cyst incidentally noted. Soft tissues: Large open soft tissue wound or ulceration of the inferomedial aspect of the left lower leg just above the ankle. Prominent diffuse soft tissue swelling throughout the visualized portion of the left lower extremity. No significant muscular edema or intermuscular fascial edema. Longitudinal scar tissue along the anterior aspect of the left lower leg. No loculated soft tissue fluid collection. No abnormal soft tissue gas IMPRESSION: Significant diffuse soft tissue edema of the left lower leg with a large anterior soft tissue ulcer just above the ankle. No evidence of abscess, myositis or fasciitis. No significant osseous abnormality Dictated and Authenticated by: Sahil Anaya MD. Orderin lAessandra Butcher MD
[2025-01-17 23:16] VITALS: BP 148/72; PULSE 70; RESP 14; O2SAT 93
--- NOTE | 2025-01-18 00:52 | W.EDPROG ---
Date of service: 01/18/25 Time of Service: 00:52 Medical Decision Making Patient was transitioned to md for signout pending Dr. Cruz for transfer to [place]. Discussed the case with Dr. Peñaloza, she agrees with the assessment and plan and accepts the patient for transfer. I have extensively reviewed the treatment plan with the patient. I have addressed all patient concerns at this time. I have also discussed the plan with the admitting physician and they agree with the current assessment and plan and have agreed to assume responsibility for the patient. All parties demonstrate verbal understanding and agreement with our assessment and plan at this time. The documentation in this chart was dictated using [employer] dictation software. Please excuse any dictation errors. At time of transfer the patient was reassessed and continued to demonstrate No signs of acute respiratory distress requiring intubation, hemodynamic instability requiring pressor support, or rapidly declining mental status. Discharge Plan Disposition Patient Disposition: Transfer-Acute Inpatient Care Specific Acute Inpt Facility: Other Condition: Good Discharge Details Clinical Impression: Wound of left lower extremity, Cellulitis, Hypomagnesemia Primary Care Provider: Pk Trevizo ED Provider: Claude Sanchez Home Meds and New Rx's Prescriptions: No Action aspirin 81 mg tablet,chewable 81 mg PO DAILY vitamin B complex [B Complex-Vitamin B12] Tablet 1 tab PO DAILY atorvastatin 20 mg tablet 20 mg PO QHS Qty: 90 3RF acetaminophen 325 mg tablet 650 mg PO Q6H PRN metformin 500 mg tablet 1,000 mg PO BID
[2025-01-18 01:00] VITALS: BP 140/70; PULSE 70; RESP 14; O2SAT 92
[2025-01-18 04:27] VITALS: BP 152/56; PULSE 70; RESP 16
[2025-01-18 06:26] VITALS: BP 146/46; PULSE 85; RESP 16
[2025-01-18 08:33] VITALS: BP 140/52; PULSE 80; RESP 16; TEMP 36.5; O2SAT 94
--- NOTE | 2025-01-18 12:20 | NUR.NOTE ---
Accessed Pt chart to document faxing positive lab results to [facility] where the PT was transferred
== END 2025-01-18 08:35 | disposition short-term general hospital (02) ==
PROVIDERS: Nurse Practitioner Family; Emergency Provider Student in an Organized Health Care Education/Training Program; PCP Family Medicine
DX: L03.116 Cellulitis of left lower limb (principal); E83.42 Hypomagnesemia; M25.462 Effusion, left knee; E11.40 Type 2 diabetes mellitus with diabetic neuropathy, unspecified; I10 Essential (primary) hypertension; T38.3X6A Underdosing of insulin and oral hypoglycemic [antidiabetic] drugs, initial encounter; Z91.148 Patient's other noncompliance with medication regimen for other reason; Z86.73 Personal history of transient ischemic attack (TIA), and cerebral infarction without residual deficits; Z79.84 Long term (current) use of oral hypoglycemic drugs
CPT/HCPCS: 00123; 36415; 80053; 85652; 87040; 87077; 96365; 96366; 96367; 99285; 73701; 83735; 85025; 86140; 87186; J0692; J3373; J3490